=== PATIENT | male | born 1960 | race Caucasian/White ===

== ENCOUNTER → 2020-03-29 13:06 | Outpatient (BNVA) | payer MEDICAID, SELFPAY | PROVIDERS: PCP Internal Medicine; Referring Provider Internal Medicine; Visit Provider Nurse Practitioner Gerontology | DX: E11.65 Type 2 diabetes mellitus with hyperglycemia (principal); E11.42 Type 2 diabetes mellitus with diabetic polyneuropathy; E78.5 Hyperlipidemia, unspecified; E66.01 Morbid (severe) obesity due to excess calories; Z87.891 Personal history of nicotine dependence; Z79.84 Long term (current) use of oral hypoglycemic drugs; Z79.899 Other long term (current) drug therapy; Z79.82 Long term (current) use of aspirin | CPT/HCPCS: 99212 ==

== ENCOUNTER 2020-04-10 08:51 | Outpatient (REF) | payer MEDICAID, SELFPAY ==
[2020-04-10 09:44] LABS: Estimated Average Glucose 203 mg/dL; Hemoglobin A1c % 8.7 %
[2020-04-10 09:57] LABS: Alanine Aminotransferase 38 U/L (0-40); Alkaline Phosphatase 48 U/L (39-117); Anion Gap 11 (12-20); Aspartate Amino Transferase 26 U/L (5-37); Bilirubin Total 0.4 mg/dL (0.0-1.0); Blood Urea Nitrogen 23 mg/dL (9-16); Calcium 9.3 mg/dL (8.4-10.2); Carbon Dioxide 31 mmol/L (22-29); Chloride 100 mmol/L (96-108); Cholesterol 131 mg/dL; Estimated Glomerular Filt Rate > 60; Glucose Fasting 175 mg/dL (60-99); HDL Cholesterol 30 mg/dL; LDL Cholesterol Calculated 52 mg/dl; Potassium 4.3 mmol/l (3.3-5.1); Sodium 138 mmol/L (135-145); Total Protein 7.4 g/dL (6.5-8.0); Triglycerides 247 mg/dL
[2020-04-10 11:24] LABS: Creatinine Urine 101.47 mg/dL; Microalbum/Creatinine Ratio Ur 31.5 ug/mg cr
[2020-04-11 20:07] LABS: LDL Cholesterol Direct 70 mg/dL (<100)
== END 2020-04-10 08:52 | disposition home or self-care (01) ==
LOC: HO.LAB 08:51
PROVIDERS: PCP Internal Medicine; Visit Provider Nurse Practitioner Gerontology
DX: E11.65 Type 2 diabetes mellitus with hyperglycemia (principal); Z79.4 Long term (current) use of insulin
CPT/HCPCS: 80053; 80061; 82043; 83036; 83721

== ENCOUNTER → 2020-04-13 13:21 | Outpatient (BNVA) | payer MEDICAID, SELFPAY | PROVIDERS: PCP Internal Medicine; Referring Provider Internal Medicine; Visit Provider Nurse Practitioner Gerontology | DX: Z76.89 Persons encountering health services in other specified circumstances (principal) ==

== ENCOUNTER → 2020-06-06 12:36 | Outpatient (BNVA) | payer MEDICAID, SELFPAY | PROVIDERS: PCP Internal Medicine; Visit Provider Dietitian, Registered | DX: Z76.89 Persons encountering health services in other specified circumstances (principal) ==

== ENCOUNTER 2020-06-11 13:00 | Outpatient (RCR) | payer MEDICAID, SELFPAY | END 2020-08-10 15:24 | disposition other institution (70) | LOC: HO.PT 13:00 | PROVIDERS: PCP Internal Medicine; Visit Provider Internal Medicine | DX: M54.2 Cervicalgia (principal) | CPT/HCPCS: 97014; 97110; 97112; 97140; 97162 ==

== ENCOUNTER 2020-06-17 15:18 | Emergency (ER) | payer MEDICAID, SELFPAY ==
--- NOTE | 2020-06-17 17:22 | ED.GENADULT ---
HPI - General Adult General Stated complaint: ?Uti Time Seen by Provider: 06/17/20 17:15 History of Present Illness HPI narrative: 59 y.o. M with PMH of poorly controlled DM, HLD, HTN, obesity presenting to the ED with concern for urinary frequency. Pt. states when his bladder becomes full he gets abdominal pain and when he voides he gets relief. He is urinating more frequently at least 10x a day. He states he is not voiding completely, now will void partially go make coffee in the morning and have to urinate again. He denies hx of prostate problems. He has no dysuria. He has no penile discharge. He denies sexual activity or concern for STD. He has not seen a urologist. His blood sugars are poorly controlled at times in the 200s. Related Data Home Medications Medication Instructions Recorded Confirmed amlodipine 5 mg tablet 5 mg PO DAILY 03/29/20 04/13/20 aspirin 81 mg tablet,delayed 81 mg PO DAILY 03/29/20 04/13/20 release gabapentin 800 mg tablet 800 mg PO BID 03/29/20 04/13/20 hydrochlorothiazide 25 mg tablet 25 mg PO DAILY 03/29/20 04/13/20 lisinopril 40 mg tablet 40 mg PO DAILY 03/29/20 04/13/20 melatonin 5 mg capsule mg PO PRN 03/29/20 04/13/20 metformin 1,000 mg tablet 1,000 mg PO BID 03/29/20 04/13/20 metoprolol succinate 200 mg 200 mg PO DAILY 03/29/20 04/13/20 tablet,extended release 24 hr naproxen 500 mg tablet 500 mg PO DAILY PRN tab 03/29/20 04/13/20 pantoprazole 20 mg tablet,delayed 20 mg PO DAILY 03/29/20 04/13/20 release simvastatin 20 mg tablet 20 mg PO DAILY 03/29/20 04/13/20 Previous Rx's Medication Instructions Recorded dulaglutide 1.5 mg/0.5 mL 1.5 mg SUBCUT QWEEK #2 ml 03/29/20 subcutaneous pen injector pioglitazone 15 mg tablet 15 mg PO DAILY #30 tab 04/18/20 cephalexin [Keflex] 500 mg PO Q12H 7 Days #14 cap 06/17/20 Allergies Allergy/AdvReac Type Severity Reaction Status Date / Time No Known Allergies Allergy Verified 03/29/20 13:18 [No Known Allergies*] Review of Systems Constitutional: Constitutional: Denies fever(s) Eyes: Eyes: Reports no additional eye complaints ENT: Denies dizziness Cardiovascular: Cardiovascular: Denies chest pain and Denies dyspnea Respiratory: Respiratory: Denies dyspnea Gastrointestinal: Gastrointestinal: Denies vomiting Genitourinary: Genitourinary: Denies genital pain, Denies dysuria, Denies penile discharge, Reports urinary frequency and Reports urinary hesitancy Musculoskeletal: Musculoskeletal: Reports no additional musculoskeletal complaints Integumentary/Breasts: Skin/Breast: Denies rash Neurologic: Denies dizziness Hematologic/Lymphatic: Hematologic/Lymphatic: Denies easy bleeding PMFSH Past Medical History Medical History Arthritis of both knees Balanitis Hyperlipidemia LDL goal <100 Obesity due to excess calories Type 2 diabetes mellitus with hyperglycemia, with long-term current use of insulin Type 2 diabetes mellitus with polyneuropathy Surgical History Hx of appendectomy Hx of tonsillectomy Family History Family History (Updated 03/28/20 @ 16:40 by Maty Esquivel) Father No problems noted. Mother Diabetes Maternal Grandfather CVD (cardiovascular disease) Maternal Uncle Diabetes Maternal Aunt Diabetes Social History Social History Household Members: None Smoking Status: Former smoker Physical Exam Vital Signs: Vital Signs: Last Vital Signs Temp 98.7 F 06/17/20 17:29 Pulse 77 06/17/20 17:29 Resp 16 06/17/20 17:29 BP 155/77 H 06/17/20 17:29 Pulse Ox 97 06/17/20 17:29 Body Mass Index 37.3 Const: Other: sitting upright at the edge of the stretcher General: cooperative Orientation/consciousness: patient oriented x3 HENMT: Head: Yes atraumatic Eyes: Pupils: Equal, round and reactive pupils present Neck: Neck: Yes full ROM Resp: Effort & Inspection: normal respiratory effort and able to speak in complete sentences Cardio: Rate: regular rate GI: Inspection: Yes obesity Palpation (GI): nontender : General: Yes deferred Back/Spine/Pelvis: Other: normal ROM Skin: Other: no lesions Neuro: Other: ambulatory with steady gait General: patient oriented x3 Cranial nerves: Yes Equal, round and reactive pupils present Extrem: General: Yes normal to inspection Psych: Appearance: grossly normal Course Course Course Narrative: glucose POC 190. Awaiting on UA. Reevaluation(s) Reevaluation #1: UA shows + nitrates, and +2 leukocytes, will tx for UTI. Will give first dose in the ED. Give urology follow up. Return precautions provided. Medical Decision Making [facility] Narrative Medical decision making narrative: 59 y.o. M presenting to the ED with concern for urinary frequency, incomplete voiding, suprapubic abdominal pain when feeling bladder fullness VS stable, not toxic appearing, hemodynamically stable Will plan for UA to r/o infection. Will check glucose POC as pt. is a poorly controlled DM. He denies rash will defer exam. Pt. does not offer testicular pain to suggest torsion. He is not sexually active, less likely STD in nature. Could have BPH that could be contributing to his symptoms. Abdomen is not peritonitic, lower suspicion for intraabdominal process. Low concern for pyelonephritis as he does not have signs of systemic illness. Doubt renal stone as pt. does not have colicky flank pain, no hx of renal stones, no hematuria reported. Lab Data Labs: Lab Results 06/17/20 06/17/20 Range/Units 17:38 17:52 POC Glucose 190 H (60-115) mg/dL Urine Color YELLOW Urine Appearance CLOUDY Urine pH 5.5 (5.0-8.0) Ur Specific Moore 1.025 (1.005-1.025) Urine Protein TRACE (NEG-TRACE) MG/DL Urine Glucose (UA) 100 H (NEG) MG/DL Urine Ketones NEG (NEG) MG/DL Urine Blood 3+ H (NEG) Urine Nitrite POS H (NEG) Ur Leukocyte Esterase 2+ H (NEG) Discharge Plan Discharge Clinical Impression: Urinary tract infection, Urinary frequency, Diabetes mellitus Patient Disposition: Home, Self-Care Instructions: Urinary Tract Infection in Men (ED) Additional Instructions: You were seen in the emergency department for concerns of urinary symptoms. Your glucose was elevated 190. Your urine shows you have an infection, we are going to treat you with antibiotics. Please return to the emergency department if his symptoms persist, pain continues despite completing the course of antibiotics, fevers, vomiting, back pain, worsening abdominal pain, unable to eat or drink, or any other concerning symptoms. Continue your home medications as prescribed in addition to the antibiotics that we are giving you. Prescriptions: New cephalexin [Keflex] 500 mg capsule 500 mg PO Q12H 7 Days Qty: 14 RF: 0 No Action pioglitazone 15 mg tablet 15 mg PO DAILY Qty: 30 RF: 3 metformin 1,000 mg tablet 1,000 mg PO BID RF: 0 gabapentin 800 mg tablet 800 mg PO BID RF: 0 simvastatin 20 mg tablet 20 mg PO DAILY RF: 0 metoprolol succinate 200 mg tablet extended release 24 hr 200 mg PO DAILY RF: 0 hydrochlorothiazide 25 mg tablet 25 mg PO DAILY RF: 0 lisinopril 40 mg tablet 40 mg PO DAILY RF: 0 aspirin [Adult Aspirin Regimen] 81 mg tablet,delayed release (DR/EC) 81 mg PO DAILY RF: 0 amlodipine 5 mg tablet 5 mg PO DAILY RF: 0 naproxen 500 mg tablet 500 mg PO DAILY PRNRF: 0 pantoprazole 20 mg tablet,delayed release (DR/EC) 20 mg PO DAILY RF: 0 melatonin 5 mg capsule PO PRNRF: 0 Trulicity 1.5 mg/0.5 mL pen injector 1.5 mg subcut QWEEK Qty: 2 RF: 3 Referrals: Moy Jarrell MD [Physician] - 1 week
[2020-06-17 17:29] VITALS: BP 155/77; PULSE 77; RESP 16; TEMP 37.1; O2SAT 97; BMI 37.3
[2020-06-17 17:49] LABS: Glucose Urine UA 100 MG/DL (NEG); Leukocyte Esterase Urine 2+ (NEG); Nitrite Urine POS (NEG); PH 5.5 (5.0-8.0); Specific Gravity - Urine 1.025 (1.005-1.025); Urine Blood 3+ (NEG); Urine Ketones NEG (NEG); Urine Protein TRACE MG/DL (NEG-TRACE)
[2020-06-17 17:53] LABS: Appearance Urine CLOUDY; Color Urine YELLOW
[2020-06-17 17:55] LABS: Glucose, Whole Blood 190 mg/dL (60-115)
[2020-06-17 18:05] LABS: Bacteria Urine 4+ /LPF; RBC Urine 50-75 /HPF (0); WBC Urine TNTC /HPF (0-4)
[2020-06-17] MEDS: cephALEXin 500 MG CAPSULE PO (18:09)
[2020-06-17 18:55] VITALS: BP 155/77; PULSE 77; RESP 16; TEMP 37.1; O2SAT 97
== END 2020-06-17 18:10 | disposition home or self-care (01) ==
LOC: HO.ED 18:08
PROVIDERS: Physician Assistant Medical; Emergency Provider Emergency Medicine
DX: N39.0 Urinary tract infection, site not specified (principal); R35.0 Frequency of micturition; R10.9 Unspecified abdominal pain; E11.9 Type 2 diabetes mellitus without complications; Z79.899 Other long term (current) drug therapy
CPT/HCPCS: 81001; 82947; 87086; 87147; 87186; 99283; 99284

== ENCOUNTER → 2020-07-05 13:01 | Outpatient (BNVA) | payer MEDICAID, SELFPAY | PROVIDERS: Visit Provider Dietitian, Registered ==

== ENCOUNTER 2020-07-16 11:49 | Emergency (ER) | payer MEDICAID, SELFPAY ==
--- NOTE | ~2020-07-16 | US_ITS ---
EXAMINATION: US VENOUS ULTRASOUND WITH DOPPLER LOWER EXTREMITY, RIGHT CLINICAL INFORMATION: Pain COMPARISON: None TECHNIQUE: Ultrasound of the deep veins is performed from the hip to the calf with compression sonography and color and pulse Doppler assessment. Spectral analysis with color-flow imaging is performed. FINDINGS: There is normal venous compression and respiratory variation and augmented flow. The visualized common femoral vein, superficial femoral vein, profunda femoral vein, popliteal vein, and the trifurcation region shows no evidence of deep venous thrombosis. There is no significant popliteal fossa cyst. US/US venous duplex LE RT IMPRESSION: No DVT demonstrated in the right lower extremity.
--- NOTE | ~2020-07-16 | XR_ITS ---
EXAMINATION: XR HIP, RIGHT CLINICAL INFORMATION: Pain COMPARISON: None TECHNIQUE: Two views of the right hip and one view of the pelvis. FINDINGS: Bone alignment is normal. No fracture or dislocation is seen. There is arthritis of the right hip joint with joint space narrowing and osteophyte formation. There is proliferative bone reaction at the iliac crests and inferior pubic rami. Bones of the pelvis are otherwise unremarkable. There are degenerative changes of the lower lumbar spine. XR/XR hip RT min 2V IMPRESSION: Degenerative changes.
[2020-07-16 11:55] VITALS: BP 167/75; PULSE 74; RESP 18; TEMP 36.6; O2SAT 98; BMI 37.3
--- NOTE | 2020-07-16 12:20 | ED.EXTPRO ---
HPI - Extremity Problem General Chief complaint: Extremity Problem Stated complaint: R LEG PAIN Time Seen by Provider: 07/16/20 12:18 Source: patient Mode of arrival: ambulatory Limitations: no limitations History of Present Illness HPI Narrative: 59 yo male with DM and polyneuropathy , HTN, and HPL here with R LE pain and some tingling in R calf area - no trauma, positive pain with movement, bounding distal pulses started at rest - has been going for 5 days Complaint: extremity pain Onset (ago): day(s) (5) Pain Consistency: constant Location: right and lower extremity Quality: aching Radiation: distal Relieving factors: nothing Exacerbating factors: weight bearing and walking Associated symptoms: denies other symptoms Related Data Home Medications Medication Instructions Recorded Confirmed amlodipine 5 mg tablet 5 mg PO DAILY 03/29/20 04/13/20 aspirin 81 mg tablet,delayed 81 mg PO DAILY 03/29/20 04/13/20 release gabapentin 800 mg tablet 800 mg PO BID 03/29/20 04/13/20 hydrochlorothiazide 25 mg tablet 25 mg PO DAILY 03/29/20 04/13/20 lisinopril 40 mg tablet 40 mg PO DAILY 03/29/20 04/13/20 melatonin 5 mg capsule mg PO PRN 03/29/20 04/13/20 metformin 1,000 mg tablet 1,000 mg PO BID 03/29/20 04/13/20 metoprolol succinate 200 mg 200 mg PO DAILY 03/29/20 04/13/20 tablet,extended release 24 hr naproxen 500 mg tablet 500 mg PO DAILY PRN tab 03/29/20 04/13/20 pantoprazole 20 mg tablet,delayed 20 mg PO DAILY 03/29/20 04/13/20 release simvastatin 20 mg tablet 20 mg PO DAILY 03/29/20 04/13/20 Previous Rx's Medication Instructions Recorded pioglitazone 15 mg tablet 15 mg PO DAILY #30 tab 04/18/20 cephalexin [Keflex] 500 mg PO Q12H 7 Days #14 cap 06/17/20 dulaglutide 1.5 mg/0.5 mL 1.5 mg SUBCUT QWEEK #2 ml 07/08/20 subcutaneous pen injector cyclobenzaprine 10 mg PO TID PRN #14 tab 07/16/20 hydrocodone-acetaminophen 1 tab PO Q6H PRN #12 tab 07/16/20 Allergies Allergy/AdvReac Type Severity Reaction Status Date / Time No Known Allergies Allergy Verified 03/29/20 13:18 [No Known Allergies*] Review of Systems Review of Systems: Constitutional : No Fever, No Chills ENT/Mouth : No Ear Pain, No Hoarseness, No sore throat Eyes: No Eye Pain, No Swelling, No Redness, No Foreign Body Cardiovascular : No Chest Pain, No SOB Respiratory : No Cough, No Dyspnea Gastrointestinal : No Nausea, No Vomiting, No Diarrhea, No abdominal Pain Genitourinary : No Dysuria, No Hematuria Musculoskeletal : positive joint pain, No Myalgias, No Joint Swelling Skin : No Skin lacerations, No rash Neuro : No Weakness, No Numbness, pos tingling, No Loss of Consciousness, No Dizziness, No Headache Psych : No Anxiety/Panic, No Depression All other systems reviewed and are negative [facility] Past Medical History Attestation statement: The following information was validated with the patient. Medical History Arthritis of both knees Balanitis Hyperlipidemia LDL goal <100 Obesity due to excess calories Type 2 diabetes mellitus with hyperglycemia, with long-term current use of insulin Type 2 diabetes mellitus with polyneuropathy Surgical History Hx of appendectomy Hx of tonsillectomy Family History Family History (Updated 03/28/20 @ 16:40 by Maty Esquivel [facility]) Father No problems noted. Mother Diabetes Maternal Grandfather CVD (cardiovascular disease) Maternal Uncle Diabetes Maternal Aunt Diabetes Social History Social History Household Members: None Smoking Status: Former smoker Smoked in Last 30 Days: No Use of substances other than those prescribed or required for medical reasons: No Advance Directives: No Advance Directives Information Provided: No Physical Exam Vital Signs: Vital Signs: Last Vital Signs Temp 97.9 F 07/16/20 11:55 Pulse 74 07/16/20 11:55 Resp 18 07/16/20 11:55 BP 167/75 H 07/16/20 11:55 Pulse Ox 98 07/16/20 11:55 Body Mass Index 37.3 Appearance: Alert. Oriented X3. No acute distress. Eyes: Pupils equal, round and reactive to light. ENT: Pharynx normal. Neck: Normal inspection. Neck supple. CVS: Normal heart rate and rhythm. Pulses normal. Respiratory: No respiratory distress. Breath sounds normal. Abdomen: Soft and nontender. Skin: Skin warm and dry. Normal skin color. Normal skin turgor. Extremities: No lower extremity edema. No calf ttp bounding distal pulses, can feel R inner lower calf but states tingling in areas, no signs of infection, R hip pain to palpation and range of motion R fem pulse intact, no erythema or swelling over R hip, no hernia noted Neuro: Oriented X 3. No motor deficit. No sensory deficit. Course Course Course Narrative: no acute findings, stable for DC MDM - Extremity (Nontraumatic) MDM Narrative Medical decision making narrative: 59 yo male with atraumatic R hip pain radiates down his leg - bounding pulses no signs of infection no abdominal pain, has hx of polyneuropathy and notes some tingling - will obtain xray and DVT study, PO pain medications, dispo per results and findings. Discharge Plan Discharge Clinical Impression: Arthralgia Patient Disposition: Home, Self-Care Instructions: Arthralgia (ED) Additional Instructions: return to ED for any worsening symptoms or concerns Prescriptions: New cyclobenzaprine 10 mg tablet 10 mg PO TID PRN (Reason: muscle spasm) Qty: 14 RF: 0 hydrocodone-acetaminophen 5-325 mg tablet 1 tab PO Q6H PRN (Reason: pain) Qty: 12 RF: 0 No Action pioglitazone 15 mg tablet 15 mg PO DAILY Qty: 30 RF: 3 dulaglutide [Trulicity] 1.5 mg/0.5 mL pen injector 1.5 mg subcut QWEEK Qty: 2 RF: 3 cephalexin [Keflex] 500 mg capsule 500 mg PO Q12H 7 Days Qty: 14 RF: 0 metformin 1,000 mg tablet 1,000 mg PO BID RF: 0 gabapentin 800 mg tablet 800 mg PO BID RF: 0 simvastatin 20 mg tablet 20 mg PO DAILY RF: 0 metoprolol succinate 200 mg tablet extended release 24 hr 200 mg PO DAILY RF: 0 hydrochlorothiazide 25 mg tablet 25 mg PO DAILY RF: 0 lisinopril 40 mg tablet 40 mg PO DAILY RF: 0 aspirin [Adult Aspirin Regimen] 81 mg tablet,delayed release (DR/EC) 81 mg PO DAILY RF: 0 amlodipine 5 mg tablet 5 mg PO DAILY RF: 0 naproxen 500 mg tablet 500 mg PO DAILY PRNRF: 0 pantoprazole 20 mg tablet,delayed release (DR/EC) 20 mg PO DAILY RF: 0 melatonin 5 mg capsule PO PRNRF: 0 Referrals: [facility] [Primary Care Provider] - 2 days (if not better) Stand Alone Forms: Work/School Release
[2020-07-16] MEDS: Cyclobenzaprine HCl 10 MG TABLET PO (13:43)
[2020-07-16] MEDS: oxyCODONE HCl Immed Release 5 MG TABLET 10 MG PO (13:43)
== END 2020-07-16 13:51 | disposition home or self-care (01) ==
PROVIDERS: Emergency Provider Emergency Medicine
DX: M79.661 Pain in right lower leg (principal); M25.551 Pain in right hip; E11.9 Type 2 diabetes mellitus without complications; I10 Essential (primary) hypertension; M17.0 Bilateral primary osteoarthritis of knee; E66.09 Other obesity due to excess calories; Z79.4 Long term (current) use of insulin
CPT/HCPCS: 73502; 93971; 99283; 99284

== ENCOUNTER → 2020-08-02 10:59 | Outpatient (BNVA) | payer MEDICAID, SELFPAY | PROVIDERS: Visit Provider Orthopaedic Surgery | DX: E11.65 Type 2 diabetes mellitus with hyperglycemia (principal); Z79.4 Long term (current) use of insulin; M54.16 Radiculopathy, lumbar region | CPT/HCPCS: 99212 ==

== ENCOUNTER → 2020-08-20 13:51 | Outpatient (BNVA) | payer MEDICAID, SELFPAY | PROVIDERS: Visit Provider Nurse Practitioner Family | DX: M54.16 Radiculopathy, lumbar region (principal) | CPT/HCPCS: 99202 ==

== ENCOUNTER 2020-08-24 15:06 | Outpatient (REF) | payer MEDICAID, SELFPAY ==
--- NOTE | ~2020-08-24 | MR_ITS ---
EXAMINATION: MR LUMBAR SPINE WITHOUT CONTRAST CLINICAL INFORMATION: Low back pain and radiculopathy. COMPARISON: None TECHNIQUE: MRI of the lumbar spine was obtained using routine sequences without contrast. FINDINGS: VERTEBRAL BODIES AND PARASPINAL STRUCTURES: The marrow signal is within normal limits. No compression fractures or subluxations are seen. Reduced intradiscal signal and mild disc space narrowing evident throughout the lumbar spine. The paraspinal soft tissues are normal. Small right renal cyst incidentally noted. There are moderate degenerative changes of the sacroiliac joints bilaterally. CONUS MEDULLARIS AND CAUDA EQUINA: Normal, terminating at the level of L1. No lower cord signal abnormality is seen. The cauda equina nerve roots are normal. SPINAL LEVELS: L1-L2: Mild posterior disc bulge with mild facet arthropathy and slight narrowing of the central canal. Mild bilateral foraminal narrowing as well. L2-L3: Mild retrosubluxation and diffuse disc bulge with a broad-based right paracentral disc protrusion and a prominent right lateral recess extruded component of disc migrating to the lower L3 vertebral body level compressing the right L3 nerve root. Hypertrophic facet arthropathy and moderate central canal stenosis with thecal sac distortion. Moderate bilateral foraminal narrowing. L3-L4: Diffuse disc bulge and broad-based central disc protrusion mild to moderately distorts the thecal sac with hypertrophic facet arthropathy and [id number] central canal stenosis. Central disc protrusion impresses upon both L4 nerve roots in the subarticular zones. Underlying disc bulge and osseous spurring with significant bilateral foraminal encroachment. L4-L5: Severe facet arthrosis with facet joint effusions. No central canal stenosis. Mild diffuse disc bulge present with moderate to severe bilateral foraminal narrowing. L5-S1: Broad-based central to left subarticular zone disc protrusion mildly impressing upon the S1 nerve roots. No central canal stenosis. Hypertrophic facet arthropathy. Moderate to severe left foraminal narrowing with mild distortion of the exiting left L5 nerve root. MR/MR lumbar spine wo con IMPRESSION: Broad-based right paracentral disc protrusion at the L2-L3 level with an extruded component of disc migrating inferiorly into the right lateral recess compressing the right L3 nerve root. Moderate central canal stenosis and thecal sac distortion with moderate foraminal narrowing. Broad-based central disc protrusion at L3-L4 distorting the ventral thecal sac with [id number] central canal stenosis. Disc protrusion impresses upon both L4 nerve roots as well. Significant bilateral foraminal narrowing. Moderate to severe foraminal narrowing at the L4-L5 level due to bulging disc, endplate spurring, and significant facet arthropathy. Broad-based, shallow central to left subarticular zone disc protrusion at L5-S1 mildly impressing upon both S1 nerve roots. Moderate to severe left foraminal narrowing with distortion of the left L5 nerve root.
== END 2020-08-24 15:07 | disposition home or self-care (01) ==
LOC: HO.MRI 15:06
PROVIDERS: Visit Provider Anesthesiology
DX: M54.16 Radiculopathy, lumbar region (principal)
CPT/HCPCS: 72148

== ENCOUNTER 2020-09-06 08:40 | Outpatient (REF) | payer MEDICAID, SELFPAY ==
--- NOTE | 2020-09-06 08:45 | EMG_ITS ---
Right tibial and peroneal motor studies were performed. Right superficial peroneal and sural sensory studies were performed. Tibial H-reflex was obtained and paraspinal muscles were tested with a needle. IMPRESSION: Cbykuaqv-[id number]-rutkap chronic axonal sensory motor peripheral neuropathy. MD ROBERTH Keith/LORETO / [id number]
== END 2020-09-06 08:41 | disposition home or self-care (01) ==
LOC: HO.NEURO 08:40
PROVIDERS: Visit Provider Internal Medicine
DX: R20.0 Anesthesia of skin (principal)
CPT/HCPCS: 95886; 95909

== ENCOUNTER → 2020-09-07 14:07 | Outpatient (BNVA) | payer MEDICAID, SELFPAY | PROVIDERS: PCP Internal Medicine; Visit Provider Nurse Practitioner Family | DX: M54.16 Radiculopathy, lumbar region (principal); M48.061 Spinal stenosis, lumbar region without neurogenic claudication | CPT/HCPCS: 99212 ==

== ENCOUNTER 2020-10-11 14:00 | Outpatient (RCR) | payer MEDICAID, SELFPAY ==
--- NOTE | 2020-09-14 11:23 | MHC.PT.EP ---
[facility] [place] Office [place] Office [place] Office [address] Froylan Jarvis [address] [phone] F: [phone] F: [phone] F: [phone] F: [phone] Physical Therapy Plan of Care Date of Evaluation: 09/13/20 Date of Surgery: N/A Diagnosis: radiculopathy, lumbar region Assessment: pt presents w/ MRI imaging (+) for multi-level radiculopathy. pt also presents w/ significant ROM and muscular limitations preventing maximum functional mobility. pt presents to physical therapy with pain, decreased range of motion, decreased strength, impaired functional mobility, impaired postural awareness, and gait deviations. pt is a good candidate for skilled PT due to age, potential remediation of impairments, typical disease/condition progression and prognosis, comorbidities, and motivation. pt would benefit from tailored strengthening and stretching exercise program, functional training, gait training, postural re-training, neuromuscular re-education, modalities as needed for pain, equipment safety demonstration. Frequency and Duration: The patient will be seen 2x/wk for 5 wks Short Term Goals: pt will be I w/ HEP to promote self-management of condition. pt will demo proper sitting posture w/ lumbar roll to promote neutral posture as assessed via teachback and demo. Hourly Associate Goals: pt will achieve full lumbar flexion to promote ease in lower body dressing. pt will report <1/10 low back pain w/ standing for >15 min to improve tolerance for ADLs. Treatment Plan: Modalities to reduce pain, spasms and effusion. Manual therapy to restore motion and function. Therapeutic exercise to improve strength and flexibility. Neuromuscular re-education for posture and balance. Therapeutic activities to return to functional activities of daily living. Electronically signed by: Sherry Neal PT, DPT Please sign and return to therapist. Thank you for your referral.
--- NOTE | 2020-10-23 18:07 | MHC.PT.DC ---
[facility] [place] Office [place] Office [place] Office [address] Froylan Jarvis [address] [phone] F: [phone] F: [phone] F: [phone] F: [phone] Physical Therapy Discharge Report Diagnosis: radiculopathy, lumbar region Date of Surgery: N/A Date of Evaluation: 09/13/20 Date of Discharge: 10/23/20 Treatments to Date: 6 Cancellations to Date: 2 No Shows to Date: 3 Discharge Status: Visit Non-compliance Discharge Summary: The patient has no showed a total of three appointments. Per [facility] policy the patient is to be discharged from this physical therapy plan of care due to visit non-compliance. He has a home exercise program including core and pelvic stability exercises to promote neutral spine. Electronically signed by: Sherry Neal PT, DPT Please sign and return to therapist. Thank you for your referral.
== END 2020-10-23 18:08 | disposition other institution (70) ==
LOC: HO.PT 14:00
PROVIDERS: PCP Internal Medicine; Visit Provider Anesthesiology
DX: M54.16 Radiculopathy, lumbar region (principal)
CPT/HCPCS: 97110; 97112; 97162

== ENCOUNTER 2020-10-16 06:54 | Outpatient (REF) | payer MEDICAID, SELFPAY | END 2020-10-16 06:55 | disposition home or self-care (01) | LOC: HO.RADIR 06:54 | PROVIDERS: Visit Provider Anesthesiology | DX: Z13.89 Encounter for screening for other disorder (principal) ==

== ENCOUNTER → 2020-11-08 13:05 | Outpatient (BNVA) | payer MEDICAID, SELFPAY | PROVIDERS: PCP Internal Medicine; Visit Provider Nurse Practitioner Gerontology | DX: E11.65 Type 2 diabetes mellitus with hyperglycemia (principal); E11.42 Type 2 diabetes mellitus with diabetic polyneuropathy; E78.5 Hyperlipidemia, unspecified; E66.09 Other obesity due to excess calories; I10 Essential (primary) hypertension; Z79.4 Long term (current) use of insulin; Z68.34 Body mass index [BMI] 34.0-34.9, adult | CPT/HCPCS: 82947 ==

== ENCOUNTER → 2020-12-27 11:00 | Outpatient (BNVA) | payer MEDICAID, SELFPAY | PROVIDERS: PCP Internal Medicine; Visit Provider Nurse Practitioner Gerontology | DX: E11.42 Type 2 diabetes mellitus with diabetic polyneuropathy (principal); E78.5 Hyperlipidemia, unspecified; E66.09 Other obesity due to excess calories; I10 Essential (primary) hypertension; Z68.34 Body mass index [BMI] 34.0-34.9, adult | CPT/HCPCS: 82947; 99212 ==

== ENCOUNTER 2021-01-20 23:02 | Emergency (ER) | payer MEDICAID, SELFPAY ==
[2021-01-21 00:05] VITALS: BP 146/78; PULSE 67; RESP 16; TEMP 36.6; O2SAT 99; BMI 35.9
[2021-01-21 01:45] LABS: Basophils Percent Auto 0.5 % (0-2); Eosinophils Absolute Auto 0.2 X10*3/uL (0.0-0.4); Eosinophils Percent Auto 2.9 % (0-4); Hematocrit 42.6 % (42-52); Hemoglobin 14.8 g/dl (14.0-18.0); Imm Gran Abs Auto 0.03 X10*3/uL (0.00-0.03); Imm Gran Pct Auto 0.4 % (0.0-0.4); Lymphocytes Absolute Auto 2.4 X10*3/uL (1.2-4.9); Lymphocytes Percent Auto 30.8 % (20-40); MANUAL DIFF FLAG NO; Mean Corpuscular HGB Conc 34.7 g/dl (31.0-36.0); Mean Corpuscular Hemoglobin 30.8 pg (27.0-33.0); Mean Corpuscular Volume 88.6 fL (80-98); Mean Platelet Volume 10.6 fL (9.4-12.4); Monocytes Absolute Auto 0.7 X10*3/uL (0.1-1.2); Monocytes Percent Auto 9.5 % (2-11); Neutrophils Absolute Auto 4.3 X10*3/uL (2.0-8.3); Neutrophils Percent Auto 55.9 % (45-73); Platelet Count 176 X10*3/uL (160-400); Red Blood Count 4.81 X10*6/uL (4.60-5.80); Red Cell Distribution Width 12.5 % (11.0-16.0); White Blood Count 7.7 X10*3/uL (4.8-10.8)
[2021-01-21 02:18] LABS: Alanine Aminotransferase 48 U/L (0-40); Albumin Level 4.1 g/dL (3.5-5.0); Alkaline Phosphatase 50 U/L (39-117); Anion Gap 13 (12-20); Aspartate Amino Transferase 44 U/L (5-37); Bilirubin Total 0.4 mg/dL (0.0-1.0); Blood Urea Nitrogen 25 mg/dL (9-16); Calcium 9.7 mg/dL (8.4-10.2); Carbon Dioxide 27 mmol/L (22-29); Chloride 102 mmol/L (96-108); Creatinine Clr Calc Pharmacy 67.5; Estimated Glomerular Filt Rate 50; Glucose Random 126 mg/dL (60-115); Potassium 4.2 mmol/L (3.3-5.1); Sodium 138 mmol/L (135-145); Total Protein 7.8 g/dL (6.5-8.0)
--- NOTE | 2021-01-21 02:42 | ED.GENADULT ---
HPI - General Adult General Chief complaint: Nausea/Vomiting/Diarrhea Stated complaint: diarrhea Time Seen by Provider: 01/21/21 02:33 Source: patient Mode of arrival: ambulatory Limitations: no limitations History of Present Illness HPI narrative: Patient comes to the emergency room complaining of diarrhea for 3 days. Patient states that hours before he had the 1st episode of diarrhea, he was preparing meatballs. Patient states that the meat smelled weird but he decided to take a chance and cook them anyways. Few hours after eating the meatballs, patient started having diarrhea. Patient denies GI bleed, no dark stool, no vomiting, no fever or chills. Patient states that for last 2 days he has been going to the bathroom with diarrhea up to 10 times per day. Patient has tried multiple doses loperamide without relief Related Data Home Medications Medication Instructions Recorded Confirmed amlodipine 5 mg tablet 5 mg PO DAILY 03/29/20 12/27/20 aspirin 81 mg tablet,delayed 81 mg PO DAILY 03/29/20 12/27/20 release (Adult Aspirin Regimen) gabapentin 800 mg tablet 800 mg PO BID 03/29/20 12/27/20 hydrochlorothiazide 25 mg tablet 25 mg PO DAILY 03/29/20 12/27/20 lisinopril 40 mg tablet 40 mg PO DAILY 03/29/20 12/27/20 melatonin 5 mg capsule mg PO PRN 03/29/20 12/27/20 metformin 1,000 mg tablet 1,000 mg PO BID 03/29/20 12/27/20 metoprolol succinate 200 mg 200 mg PO DAILY 03/29/20 12/27/20 tablet,extended release 24 hr simvastatin 20 mg tablet 20 mg PO DAILY 03/29/20 12/27/20 Previous Rx's Medication Instructions Recorded dulaglutide 4.5 mg/0.5 mL 4.5 mg SUBCUT QWEEK #2 ml 12/27/20 subcutaneous pen injector (Trulicity) empagliflozin 10 mg tablet 10 mg PO QAM #30 tab 12/27/20 (Jardiance) diphenoxylate-atropine 2.5 1 tab PO DAILY PRN #4 tab 01/21/21 mg-0.025 mg tablet (Lomotil) Allergies Allergy/AdvReac Type Severity Reaction Status Date / Time No Known Allergies Allergy Verified 01/21/21 00:05 [No Known Allergies*] Review of Systems Review of Systems: Constitutional : No Weight loss, No Fever, No Chills, No Night Sweats, No Fatigue, No Malaise ENT/Mouth : No Hearing loss, No Ear Pain, No Nasal Congestion, No Sinus Pain, No Hoarseness, No sore throat, No Rhinorrhea, No Swallowing Difficulty Eyes: No Eye Pain, No Swelling, No Redness, No Foreign Body, No Discharge, No Vision Changes Cardiovascular : No Chest Pain, No SOB, No Dyspnea on Exertion, No Orthopnea, No Edema, No Palpitations Respiratory : No Cough, No Sputum, No Wheezing, No Smoke Exposure, No Dyspnea Gastrointestinal : No Nausea, No Vomiting, complaining of Diarrhea, No Constipation, complaining of abdominal cramping, No Hematochezia, No Melena Genitourinary : no irregular bleeding, No Dysuria, No Urinary Frequency, No Hematuria, No Urinary Incontinence, No Urgency, No Flank Pain, No Urinary Flow Changes, No Hesitancy Musculoskeletal : No joint pain, No Myalgias, No Joint Swelling Skin : No Skin Lesions, No rash Neuro : No Weakness, No Numbness, No Paresthesias, No Loss of Consciousness, No Dizziness, No Headache Psych : No Anxiety/Panic, No Depression, No SI/HI/AH/VH, No Social Issues, Heme/Lymph: No Bruising, No Bleeding,No Lymphadenopathy Endocrine : No Polyuria, No Polydipsia, No Temperature Intolerance PMFSH Past Medical History Medical History Arthritis of both knees Balanitis Essential hypertension Hyperlipidemia LDL goal <100 Obesity due to excess calories Right lumbar radiculopathy Type 2 diabetes mellitus with hyperglycemia, with long-term current use of insulin Type 2 diabetes mellitus with polyneuropathy Surgical History Hx of appendectomy Hx of tonsillectomy Family History Family History Father No problems noted. Mother Diabetes Maternal Grandfather CVD (cardiovascular disease) Maternal Uncle Diabetes Maternal Aunt Diabetes Social History Social History (Updated 11/08/20 @ 13:21 by Maty Esquivel Williams) Household Members: None Patient Tobacco Use Status: Current someday Tobacco user Advance Directives: No Physical Exam Vital Signs: Vital Signs: Last Vital Signs Temp 98 F 01/21/21 00:05 Pulse 67 01/21/21 00:05 Resp 16 01/21/21 00:05 BP 146/78 H 01/21/21 00:05 Pulse Ox 99 01/21/21 00:05 Body Mass Index 35.9 Const: Other: Appearance: Alert. Oriented X3. No acute distress. Eyes: Pupils equal, round and reactive to light. ENT: Pharynx normal. Neck: Normal inspection. Neck supple. No lymph nodes noted. No crepitus CVS: Normal heart rate and rhythm. Pulses normal. Normal S1 and S2 Respiratory: No respiratory distress. Breath sounds normal. No Wheezing. No rales Abdomen: Soft and nontender. No rigidity. No distention. good BS x4 Skin: Skin warm and dry. Normal skin color. Normal skin turgor. Extremities: No lower extremity edema. No Lacerations. No Rash Neuro: Oriented X 3. No motor deficit. No sensory deficit. Moving all extermities. No slurred speech. Course Course Course Narrative: Elevated at 1.43. Patient given 1 L normal saline IV fluids and Lomotil. Patient instructed to follow-up with his primary care physician. Medical Decision Making Lab Data Result diagrams: 01/21/21 01:41 01/21/21 01:41 Labs: Lab Results 01/21/21 01/21/21 Range/Units 01:41 01:41 WBC 7.7 (4.8-10.8) X10*3/uL RBC 4.81 (4.60-5.80) X10*6/uL Hgb 14.8 (14.0-18.0) g/dl Hct 42.6 (42-52) % MCV 88.6 (80-98) fL MCH 30.8 (27.0-33.0) pg MCHC 34.7 (31.0-36.0) g/dl RDW 12.5 (11.0-16.0) % Plt Count 176 (160-400) X10*3/uL MPV 10.6 (9.4-12.4) fL Immature Gran % (Auto) 0.4 (0.0-0.4) % Neut % (Auto) 55.9 (45-73) % Lymph % (Auto) 30.8 (20-40) % [place] % (Auto) 9.5 (2-11) % Eos % (Auto) 2.9 (0-4) % Baso % (Auto) 0.5 (0-2) % Lymph # (Auto) 2.4 (1.2-4.9) X10*3/uL [place] # (Auto) 0.7 (0.1-1.2) X10*3/uL Eos # (Auto) 0.2 (0.0-0.4) X10*3/uL Baso # (Auto) 0.0 (0.0-0.2) X10*3/uL Abs Immat Gran (auto) 0.03 (0.00-0.03) X10*3/uL Absolute Neuts (auto) 4.3 (2.0-8.3) X10*3/uL Absolute Nucleated RBC 0.000 (0.0-0.012) X10*3/uL Nucleated RBC % (auto) 0.0 (0.0-0.2) /100WBC Sodium 138 (135-145) mmol/L Potassium 4.2 (3.3-5.1) mmol/L Chloride 102 (96-108) mmol/L Carbon Dioxide 27 (22-29) mmol/L Anion Gap 13 (12-20) BUN 25 H (9-16) mg/dL Creatinine 1.43 H (0.5-1.4) mg/dL Estim Creat Clear Calc 67.5 Estimated GFR 50 Random Glucose 126 H (60-115) mg/dL Calcium 9.7 (8.4-10.2) mg/dL Total Bilirubin 0.4 (0.0-1.0) mg/dL AST 44 H D (5-37) U/L ALT 48 H (0-40) U/L Alkaline Phosphatase 50 (39-117) U/L Total Protein 7.8 (6.5-8.0) g/dL Albumin 4.1 (3.5-5.0) g/dL Discharge Plan Discharge Clinical Impression: Diarrhea Qualifiers: Diarrhea type: unspecified type Qualified Code(s): R19.7 - Diarrhea, unspecified Patient Disposition: Home, Self-Care Instructions: Acute Diarrhea (ED), Food Poisoning (ED) Additional Instructions: Please follow-up with your primary care physician tomorrow. If you have any worsening or new symptoms, please return to the emergency room or call 911 Prescriptions: New diphenoxylate-atropine [Lomotil] 2.5-0.025 mg tablet 1 tab PO DAILY PRN (Reason: diarrhea) Qty: 4 RF: 0 No Action Trulicity 4.5 mg/0.5 mL pen injector 4.5 mg subcut QWEEK Qty: 2 RF: 4 Jardiance 10 mg tablet 10 mg PO QAM Qty: 30 RF: 6 metformin 1,000 mg tablet 1,000 mg PO BID RF: 0 gabapentin 800 mg tablet 800 mg PO BID RF: 0 simvastatin 20 mg tablet 20 mg PO DAILY RF: 0 metoprolol succinate 200 mg tablet extended release 24 hr 200 mg PO DAILY RF: 0 hydrochlorothiazide 25 mg tablet 25 mg PO DAILY RF: 0 lisinopril 40 mg tablet 40 mg PO DAILY RF: 0 aspirin [Adult Aspirin Regimen] 81 mg tablet,delayed release (DR/EC) 81 mg PO DAILY RF: 0 amlodipine 5 mg tablet 5 mg PO DAILY RF: 0 melatonin 5 mg capsule PO PRNRF: 0
[2021-01-21] MEDS: Diphenoxylate/Atrop 2.5/0.025 TABLET 1 TAB PO (02:53)
[2021-01-21] MEDS: 0.9 % Sodium Chloride 1,000 ML 999 ML IVCONT (02:56)
[2021-01-21 03:18] VITALS: RESP 18; O2SAT 100
== END 2021-01-21 03:38 | disposition home or self-care (01) ==
PROVIDERS: Emergency Provider Emergency Medicine
DX: R11.2 Nausea with vomiting, unspecified (principal); R19.7 Diarrhea, unspecified; I10 Essential (primary) hypertension; E11.9 Type 2 diabetes mellitus without complications; F17.200 Nicotine dependence, unspecified, uncomplicated; Z79.899 Other long term (current) drug therapy; Z79.4 Long term (current) use of insulin; Z71.6 Tobacco abuse counseling
CPT/HCPCS: 36415; 80053; 85025; 96360; 99283; 99284

== ENCOUNTER → 2021-08-29 10:29 | Outpatient (BNVA) | payer MEDICAID, SELFPAY | PROVIDERS: Visit Provider Urology | DX: N48.1 Balanitis (principal) | CPT/HCPCS: 99202 ==

== ENCOUNTER → 2021-09-24 13:20 | Outpatient (BNVA) | payer MEDICAID, SELFPAY | PROVIDERS: PCP Internal Medicine; Visit Provider Nurse Practitioner Gerontology | DX: E11.65 Type 2 diabetes mellitus with hyperglycemia (principal); E11.42 Type 2 diabetes mellitus with diabetic polyneuropathy; E11.621 Type 2 diabetes mellitus with foot ulcer; L97.519 Non-pressure chronic ulcer of other part of right foot with unspecified severity; E78.5 Hyperlipidemia, unspecified; I10 Essential (primary) hypertension; E66.09 Other obesity due to excess calories; Z68.34 Body mass index [BMI] 34.0-34.9, adult; Z79.84 Long term (current) use of oral hypoglycemic drugs | CPT/HCPCS: 82947; 83036; 99212 ==

== ENCOUNTER 2021-10-03 09:52 | Outpatient (RCR) | payer MEDICAID, SELFPAY ==
--- NOTE | ~2021-10-03 | XR_ITS ---
EXAMINATION: XR FOOT, RIGHT CLINICAL INFORMATION: Pain in the great toe on the right COMPARISON: 02/07/2019 TECHNIQUE: AP, lateral, and oblique views of the right foot. FINDINGS: There is no acute fractures seen. Marginal spurring seen at the base of proximal phalanx of great toe. There is soft tissue swelling surrounding the tuft of great toe. The rest of right foot revealed multiple ossicles at the first, second, fifth metatarsophalangeal joints. There is calcification in the plantar fascia and Achilles tendon insertion spur. These findings are stable. Soft tissues are unremarkable XR/XR foot RT min 3V IMPRESSION: No acute fractures seen
--- NOTE | ~2021-10-03 | XR_ITS ---
EXAMINATION: XR CHEST CLINICAL INFORMATION: Pre-HBOT COMPARISON: Previous chest x-ray September 2015 TECHNIQUE: 2 views of the chest were obtained. FINDINGS: The cardiac and mediastinal contours are normal. The lungs are clear. There is no pleural effusion or pneumothorax. There are degenerative changes of the spine. XR/XR chest 2V IMPRESSION: No evidence for acute disease in the chest.
[2021-10-30 11:09] LABS: MANUAL DIFF FLAG NO
[2021-10-30 11:45] LABS: Basophils Absolute Auto 0.1 X10*3/uL (0.0-0.2); Basophils Percent Auto 0.9 % (0-2); Eosinophils Absolute Auto 0.2 X10*3/uL (0.0-0.4); Eosinophils Percent Auto 3.4 % (0-4); Hematocrit 40.3 % (42.0-52.0); Hemoglobin 13.5 g/dl (14.0-18.0); Imm Gran Abs Auto 0.05 X10*3/uL (0.00-0.03); Imm Gran Pct Auto 0.8 % (0.0-0.4); Lymphocytes Absolute Auto 1.8 X10*3/uL (1.2-4.9); Mean Corpuscular HGB Conc 33.5 g/dl (31.0-36.0); Mean Corpuscular Hemoglobin 29.8 pg (27.0-33.0); Monocytes Absolute Auto 0.7 X10*3/uL (0.1-1.2); Neutrophils Absolute Auto 3.7 x10*3/uL (2.0-8.3); Neutrophils Percent Auto 56.9 % (45-73); Platelet Count 187 X10*3/uL (160-400); Red Blood Count 4.53 X10*6/uL (4.60-5.80); Red Cell Distribution Width 12.4 % (11.0-16.0); White Blood Count 6.5 X10*3/uL (4.8-10.8)
[2021-10-30 11:58] LABS: Estimated Average Glucose 169 mg/dL; Hemoglobin A1c % 7.5 %
[2021-10-30 12:12] LABS: Anion Gap 13 (12-20); Blood Urea Nitrogen 29 mg/dL (9-16); C Reactive Protein 0.06 mg/dL (< or = 0.50); Calcium 9.9 mg/dL (8.4-10.2); Carbon Dioxide 28 mmol/L (22-29); Chloride 103 mmol/L (96-108); Estimated Glomerular Filt Rate 48; Glucose Random 173 mg/dL (60-115); Potassium 4.6 mmol/L (3.3-5.1); Sodium 139 mmol/L (135-145)
[2021-10-30 12:33] LABS: Erythrocyte Sedimentation Rate 11 MM/HR (0-15)
[2022-02-12 12:48] LABS: MANUAL DIFF FLAG NO
[2022-02-12 13:25] LABS: Basophils Percent Auto 0.6 % (0-2); Eosinophils Absolute Auto 0.4 X10*3/uL (0.0-0.4); Eosinophils Percent Auto 5.3 % (0-4); Hematocrit 43.1 % (42.0-52.0); Hemoglobin 14.4 g/dl (14.0-18.0); Imm Gran Abs Auto 0.02 X10*3/uL (0.00-0.03); Imm Gran Pct Auto 0.3 % (0.0-0.4); Lymphocytes Absolute Auto 1.8 X10*3/uL (1.2-4.9); Lymphocytes Percent Auto 25.6 % (20-40); Mean Corpuscular HGB Conc 33.4 g/dl (31.0-36.0); Mean Corpuscular Hemoglobin 29.8 pg (27.0-33.0); Mean Corpuscular Volume 89.2 fL (80.0-98.0); Mean Platelet Volume 10.7 fL (9.4-12.4); Monocytes Absolute Auto 0.8 X10*3/uL (0.1-1.2); Monocytes Percent Auto 11.6 % (2-11); Neutrophils Absolute Auto 4.1 x10*3/uL (2.0-8.3); Neutrophils Percent Auto 56.6 % (45-73); Platelet Count 206 X10*3/uL (160-400); Red Blood Count 4.83 X10*6/uL (4.60-5.80); Red Cell Distribution Width 12.7 % (11.0-16.0); White Blood Count 7.2 X10*3/uL (4.8-10.8)
[2022-02-12 13:39] LABS: Estimated Average Glucose 146 mg/dL; Hemoglobin A1c % 6.7 %
[2022-02-12 14:14] LABS: Erythrocyte Sedimentation Rate 23 MM/HR (0-15)
[2022-02-12 14:22] LABS: Anion Gap 17 (12-20); Blood Urea Nitrogen 34 mg/dL (9-16); C Reactive Protein 0.98 mg/dL (< or = 0.50); Calcium 9.9 mg/dL (8.4-10.2); Carbon Dioxide 29 mmol/L (22-29); Chloride 101 mmol/L (96-108); Estimated Glomerular Filt Rate 39; Glucose Random 158 mg/dL (60-115); Potassium 4.5 mmol/L (3.3-5.1); Sodium 142 mmol/L (135-145)
== END 2022-04-09 13:32 | disposition home or self-care (01) ==
LOC: HO.WCC 09:52
PROVIDERS: Physician Assistant; Visit Provider Surgery
DX: E11.621 Type 2 diabetes mellitus with foot ulcer (principal); L97.512 Non-pressure chronic ulcer of other part of right foot with fat layer exposed; E11.69 Type 2 diabetes mellitus with other specified complication; M86.471 Chronic osteomyelitis with draining sinus, right ankle and foot; E11.40 Type 2 diabetes mellitus with diabetic neuropathy, unspecified; I10 Essential (primary) hypertension; Z87.891 Personal history of nicotine dependence; Z79.2 Long term (current) use of antibiotics
CPT/HCPCS: 11042; 15275; 36415; 71046; 73630; 80048; 83036; 84134; 85025; 85652; 86140; 97597; 99183; 99202; 99211; 99212; Q4187

== ENCOUNTER → 2021-10-11 13:37 | Outpatient (BNVA) | payer MEDICAID, SELFPAY | PROVIDERS: PCP Internal Medicine; Visit Provider Urology | DX: Z13.89 Encounter for screening for other disorder (principal) ==

== ENCOUNTER → 2021-10-30 12:44 | Outpatient (BNVA) | payer MEDICAID, SELFPAY | PROVIDERS: PCP Internal Medicine; Visit Provider Dietitian, Registered | DX: E11.65 Type 2 diabetes mellitus with hyperglycemia (principal); Z79.4 Long term (current) use of insulin | CPT/HCPCS: 97803 ==

== ENCOUNTER 2021-11-04 06:03 | Day surgery (SDC) | payer MEDICAID, SELFPAY ==
[2021-10-25 14:29] VITALS: BMI 33.7
--- NOTE | 2021-11-01 09:16 | P.CONAN_ITS ---
Documented by User: Reny Chavez NP 11/01/21 09:17 HPI - Anesthesia Eval Consult details Narrative: 61yo M for Circumcision PMFSH Active Problems Active Problems: All Active Problems (Updated 09/24/21 @ 14:56 by JOSE Akers) Lumbar stenosis (Acute) Ulcer of right great toe due to diabetes mellitus (Acute) DM2 (diabetes mellitus, type 2) (Acute) Balanitis (Acute) Essential hypertension (Acute) Right lumbar radiculopathy (Acute) Type 2 diabetes mellitus with hyperglycemia, with long-term current use of insulin (Acute) Type 2 diabetes mellitus with polyneuropathy (Acute) Hyperlipidemia LDL goal <100 (Acute) Obesity due to excess calories (Acute) Past Medical History Medical History Arthritis of both knees Balanitis DM2 (diabetes mellitus, type 2) Essential hypertension Hyperlipidemia LDL goal <100 Obesity due to excess calories Right lumbar radiculopathy Type 2 diabetes mellitus with hyperglycemia, with long-term current use of insulin Type 2 diabetes mellitus with polyneuropathy Family History Family History Father No problems noted. Mother Diabetes Maternal Grandfather CVD (cardiovascular disease) Maternal Uncle Diabetes Maternal Aunt Diabetes Surgical History Surgical History (Updated 10/25/21 @ 14:17 by Makenna Kasper RN) H/O colonoscopy Hx of appendectomy Hx of tonsillectomy Social History Social History Household Members: None Patient Tobacco Use Status: Former Tobacco user Quit Date: July 2021 Are you DNR?: No Advance Directives: No Advance Directives Information Provided: Yes Meds Allergies Allergy/AdvReac Type Severity Reaction Status Date / Time No Known Allergies Allergy Verified 10/11/21 13:38 [No Known Allergies*] Home Medications Medication Instructions Recorded Confirmed Last Taken Type amlodipine 5 mg tablet 5 mg PO DAILY 03/29/20 10/25/21 Unknown History aspirin 81 mg tablet,delayed 81 mg PO DAILY 03/29/20 10/25/21 10/30/21 History release (Adult Aspirin Regimen) gabapentin 800 mg tablet 800 mg PO BID 03/29/20 10/25/21 Unknown History lisinopril 40 mg tablet 40 mg PO DAILY 03/29/20 10/25/21 Unknown History metformin 1,000 mg tablet 1,000 mg PO BID 03/29/20 10/25/21 Unknown History metoprolol succinate 200 mg 200 mg PO DAILY 03/29/20 10/25/21 Unknown History tablet,extended release 24 hr simvastatin 20 mg tablet 20 mg PO DAILY 03/29/20 10/25/21 Unknown History alcohol swabs (Alcohol Prep Pads) pad TOPICAL DAILY 08/29/21 Unknown History blood sugar diagnostic (FreeStyle #10 ea 08/29/21 Unknown History Lite Strips) hydrochlorothiazide 50 mg tablet 50 mg PO DAILY 08/29/21 10/25/21 Unknown History lancets 33 gauge (TRUEplus Lancets) #100 ea 08/29/21 Unknown History latanoprost 0.005 % eye drops 1 drp OPHTHALMIC (EYE) BEDTIME 08/29/21 10/25/21 Unknown History melatonin 5 mg tablet 10 mg PO BEDTIME PRN 08/29/21 10/25/21 Unknown History naproxen 500 mg tablet,delayed 500 mg PO BID PRN 08/29/21 10/25/21 10/22/21 History release pantoprazole 20 mg tablet,delayed 20 mg PO DAILY 08/29/21 10/25/21 Unknown History release Exam Exam Date and Time: November 01, 2021 0916 Height,Weight and Vital Signs: Height 5 ft 10 in Weight 106.594 kg Pertinent Lab Results Pertinent Lab Results: Laboratory Tests 10/30/21 10/30/21 11:09 11:09 WBC 6.5 Hgb 13.5 L Hct 40.3 L Plt Count 187 Sodium 139 Potassium 4.6 Chloride 103 Carbon Dioxide 28 BUN 29 H Creatinine 1.47 H Assessment and Plan Assessment Anesthesia Assessment: Chart Reviewed Documented by User: Sherry Coronel MD 11/04/21 07:18 [facility] Past Medical History Medical History Arthritis of both knees Balanitis DM2 (diabetes mellitus, type 2) Essential hypertension Hyperlipidemia LDL goal <100 Obesity due to excess calories Right lumbar radiculopathy Type 2 diabetes mellitus with hyperglycemia, with long-term current use of insulin Type 2 diabetes mellitus with polyneuropathy Family History Family History Father No problems noted. Mother Diabetes Maternal Grandfather CVD (cardiovascular disease) Maternal Uncle Diabetes Maternal Aunt Diabetes Family history of problems with anesthesia: No Surgical History Surgical History (Updated 10/25/21 @ 14:17 by Makenna Kasper RN) H/O colonoscopy Hx of appendectomy Hx of tonsillectomy History of Problems with Anesthesia: No Social History Social History Household Members: None Patient Tobacco Use Status: Former Tobacco user Quit Date: July 2021 Are you DNR?: No Advance Directives: No Advance Directives Information Provided: Yes Meds Allergies Allergy/AdvReac Type Severity Reaction Status Date / Time No Known Allergies Allergy Verified 10/11/21 13:38 [No Known Allergies*] Home Medications Medication Instructions Recorded Confirmed Last Taken Type amlodipine 5 mg tablet 5 mg PO DAILY 03/29/20 10/25/21 Unknown History aspirin 81 mg tablet,delayed 81 mg PO DAILY 03/29/20 10/25/21 10/30/21 History release (Adult Aspirin Regimen) gabapentin 800 mg tablet 800 mg PO BID 03/29/20 10/25/21 Unknown History lisinopril 40 mg tablet 40 mg PO DAILY 03/29/20 10/25/21 Unknown History metformin 1,000 mg tablet 1,000 mg PO BID 03/29/20 10/25/21 Unknown History metoprolol succinate 200 mg 200 mg PO DAILY 03/29/20 10/25/21 Unknown History tablet,extended release 24 hr simvastatin 20 mg tablet 20 mg PO DAILY 03/29/20 10/25/21 Unknown History alcohol swabs (Alcohol Prep Pads) pad TOPICAL DAILY 08/29/21 Unknown History blood sugar diagnostic (FreeStyle #10 ea 08/29/21 Unknown History Lite Strips) hydrochlorothiazide 50 mg tablet 50 mg PO DAILY 08/29/21 10/25/21 Unknown History lancets 33 gauge (TRUEplus Lancets) #100 ea 08/29/21 Unknown History latanoprost 0.005 % eye drops 1 drp OPHTHALMIC (EYE) BEDTIME 08/29/21 10/25/21 Unknown History melatonin 5 mg tablet 10 mg PO BEDTIME PRN 08/29/21 10/25/21 Unknown History naproxen 500 mg tablet,delayed 500 mg PO BID PRN 08/29/21 10/25/21 10/22/21 History release pantoprazole 20 mg tablet,delayed 20 mg PO DAILY 08/29/21 10/25/21 Unknown History release Exam Airway Mallampati Class: III (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
[2021-11-04 06:10] VITALS: BP 146/61; PULSE 70; RESP 18; TEMP 36.2; O2SAT 97
[2021-11-04 06:22] LABS: Glucose, Whole Blood 138 mg/dL (60-115)
[2021-11-04] MEDS: Lactated Ringers 1,000 ML 100 ML IVCONT (06:40)
--- NOTE | 2021-11-04 07:34 | MHC.SHP ---
Pre-Procedural Eval Section A Date of Service: 11/04/21 The patient is an INPATIENT: No Changes since office visit: No Cold of Flu in the past 2 weeks, No New Medical Problems, No Changes in Medication and No Patient answered all questions The History & Physical has been completed within 30 days and I have reviewed it.: Yes Section B Chief Complaint: balanitis Allergies: Allergies Allergy/AdvReac Type Severity Reaction Status Date / Time No Known Allergies Allergy Verified 10/11/21 13:38 [No Known Allergies*] Plan I have reviewed the history and physical and performed a pertinent physical examination on my patient. No changes have occurred unless specified.
--- NOTE | 2021-11-04 08:32 | P.OP_ITS ---
Operative Note Operative Note Date of Service: 11/04/21 Narrative: PreOperative Diagnosis: Balanitis and phimosis Post Operative Diagnosis: Balanitis and phimosis Procedure: Circumcision Surgeon: Dr Moy Jarrell Anesthesia: General Indications for procedure: Recurring balanitis in inability to withdrawal foreskin of penile glans. Risks and benefits including bleeding, scarring, need for revision surgery been discussed. Procedure: After informed consent was verified the patient was brought to the operating room and placed in a supine position. Anesthesia was administered per protocol. The patient was prepped and draped sterile fashion. Safety pause time-out was performed. Antibiotics have been given. The penis was examined and proximal incision marked that lay just proximal to the resting position of the penile sulcus. This was followed around the circumference of the penis. A penile ring block was performed using 1% lidoca ine with no epinephrine. Approximately 8 cc. The proximal incision was developed with sharp blade running circumferentially around the penis. The skin was to give a 1 cm separation between the foreskin in the remaining penile shaft skin. The foreskin was withdrawn and the penile glans exposed. A a distal incision was made approximately 5 mm proximal to the penile sulcus. At the area of the frenulum care was taken to empty the penile frenulum intact. Using clamps the dorsal skin was elevated. Using Metzenbaum scissors the avascular plane was entered and proximal and distal incision were joined. The bridging skin was elevated and clamped. It was then divided using Bovie. The sleeve of tissue was then removed circumferentially around the penis using cautery in order to minimize bleeding. The shaft was then examined in any bleeding areas were controlled. More local anesthetic was injected into the plane beneath avascular plane to help with postprocedure pain management. The skin edges after they were appropriately examined low reapposed. A 3-0 chromic suture was placed at 12:00 o'clock and 06:00 o'clock positions. Interrupted 3-0 was then placed the 09:00 o'clock and 3 o'clock position. Each quadrant was then filled with 3 sutures using 4-0 chromic. At the completion of the procedure there was adequate hemostasis. The incision was washed and dried. Antibiotic cream was applied to the incision. A Elysia wrap was applied followed by a Coban dressing. Xeroform gauze had been used to cover antibiotic ointment. He tolerated the procedure well and was extubated in the room and transferred in stable condition to the recovery area. Pathology: Foreskin Drains: none
[2021-11-04 08:36] VITALS: BP 119/72; PULSE 75; RESP 16; TEMP 36.6; O2SAT 95
[2021-11-04 08:41] VITALS: BP 129/70; PULSE 75; RESP 16; O2SAT 94
[2021-11-04 08:46] VITALS: BP 124/73; PULSE 71; RESP 16; O2SAT 93
[2021-11-04 08:51] VITALS: BP 131/73; PULSE 72; RESP 16; O2SAT 95
[2021-11-04 09:06] VITALS: BP 136/81; PULSE 70; RESP 16; TEMP 36.1; O2SAT 96
== END 2021-11-04 09:44 | disposition home or self-care (01) ==
PROVIDERS: PCP Internal Medicine; Visit Provider Urology
PROC: (CPT 54161; principal; 2021-11-04 07:30)
DX: N48.1 Balanitis (principal); N47.1 Phimosis; E11.65 Type 2 diabetes mellitus with hyperglycemia; E11.42 Type 2 diabetes mellitus with diabetic polyneuropathy; I10 Essential (primary) hypertension; E78.5 Hyperlipidemia, unspecified; E66.09 Other obesity due to excess calories; Z79.84 Long term (current) use of oral hypoglycemic drugs; Z79.82 Long term (current) use of aspirin; Z79.899 Other long term (current) drug therapy; Z87.891 Personal history of nicotine dependence
CPT/HCPCS: 54161; 82947; 88304; J0690; J1100; J2250; J2405; J3010

== ENCOUNTER 2021-11-26 10:05 | Outpatient (REF) | payer MEDICAID, SELFPAY ==
[2021-11-26 11:37] LABS: Alanine Aminotransferase 40 U/L (0-40); Albumin Level 3.9 g/dL (3.5-5.0); Alkaline Phosphatase 50 U/L (39-117); Anion Gap 12 (12-20); Aspartate Amino Transferase 28 U/L (5-37); Bilirubin Total 0.3 mg/dL (0.0-1.0); Blood Urea Nitrogen 34 mg/dL (9-16); Calcium 9.4 mg/dL (8.4-10.2); Carbon Dioxide 29 mmol/L (22-29); Chloride 104 mmol/L (96-108); Cholesterol 157 mg/dL; Estimated Glomerular Filt Rate 45; Glucose Fasting 134 mg/dL (60-99); HDL Cholesterol 30 mg/dL; LDL Cholesterol Calculated 67 mg/dl; Potassium 4.9 mmol/L (3.3-5.1); Sodium 140 mmol/L (135-145); Total Protein 7.3 g/dL (6.5-8.0); Triglycerides 301 mg/dL
[2021-11-26 11:58] LABS: Creatinine Urine 80.68 mg/dL; Microalbum/Creatinine Ratio Ur 33.4 ug/mg cr
[2021-11-28 03:07] LABS: LDL Cholesterol Direct 84 mg/dL (<100)
== END 2021-11-26 10:06 | disposition home or self-care (01) ==
LOC: HO.LAB 10:05
PROVIDERS: PCP Internal Medicine; Visit Provider Nurse Practitioner Gerontology
DX: E11.65 Type 2 diabetes mellitus with hyperglycemia (principal)
CPT/HCPCS: 36415; 80053; 80061; 82043; 83721

== ENCOUNTER → 2021-11-27 12:55 | Outpatient (BNVA) | payer MEDICAID, SELFPAY | PROVIDERS: PCP Internal Medicine; Visit Provider Nurse Practitioner Gerontology | DX: E11.42 Type 2 diabetes mellitus with diabetic polyneuropathy (principal); E78.5 Hyperlipidemia, unspecified; I10 Essential (primary) hypertension; E66.09 Other obesity due to excess calories; Z68.33 Body mass index [BMI] 33.0-33.9, adult; Z79.84 Long term (current) use of oral hypoglycemic drugs | CPT/HCPCS: 82947; 99212 ==

== ENCOUNTER → 2021-12-04 20:54 | Outpatient (REF) | payer MEDICAID, SELFPAY | LOC: HO.SL 20:54 | PROVIDERS: Visit Provider Internal Medicine | DX: G47.33 Obstructive sleep apnea (adult) (pediatric) (principal); Z79.899 Other long term (current) drug therapy | CPT/HCPCS: 95811 ==

== ENCOUNTER 2021-12-06 08:14 | Emergency (ER) | payer MEDICAID, SELFPAY ==
--- NOTE | ~2021-12-06 | CT_ITS ---
EXAMINATION: CT ABDOMEN AND PELVIS WITHOUT CONTRAST CLINICAL INFORMATION: Abdominal and low back pain. COMPARISON: None TECHNIQUE: Multidetector volumetric imaging was performed from the superior aspect of the liver through the pubic symphysis. Sagittal and coronal reformatted images were obtained on the technologist's workstation. This CT examination was performed using dose optimization techniques as appropriate, variously including the following: *Automated exposure control *Adjustment of mA and/or kV according to patient size (this includes techniques or standardized protocols for targeted exams where dose is matched to indication/reason for exam; i.e. extremities or head) *Use of iterative reconstruction technique DLP: 875.6 mGy-cm FINDINGS: LUNG BASES: There is a calcified granuloma identified at the left lung base. Coronary arterial atherosclerotic disease is noted. LIVER, GALLBLADDER, AND BILIARY TREE: The liver is normal in size, shape, and attenuation. No focal hepatic lesion or biliary ductal dilatation is present. The gallbladder is unremarkable with no evidence of radiopaque gallstones, gallbladder wall thickening, or obvious pericholecystic inflammatory changes. PANCREAS: Subtle focal bulkiness is noted involving the distal part of the body of the pancreas, not optimally evaluated on this noncontrast study (245: 3). SPLEEN: Unremarkable. ADRENAL GLANDS: Mild nodularity of the left adrenal gland is noted without any discrete mass. The right adrenal gland is unremarkable. KIDNEYS AND URETERS: The kidneys are normal in size, shape, and attenuation. No hydronephrosis, hydroureter, or calculi seen. No perinephric stranding. BLADDER: Distended, likely physiologic. GASTROINTESTINAL TRACT: The small and large bowel are unremarkable. The appendix is nonvisualized without any inflammatory changes around the cecum. ABDOMINAL WALL: No significant hernia is appreciated. LYMPH NODES: Normal. VASCULAR: Unremarkable. PELVIC VISCERA: There is no pelvic mass present. No evidence of any free fluid and/or free air. OSSEOUS STRUCTURES: Multilevel moderate degenerative spondylosis. CT/CT abdomen pelvis wo con IMPRESSION: 1. The distal part of the body of the pancreas shows subtle focal bulkiness without evidence of any discrete mass, not optimally characterized on this nonenhanced study. Multiphasic pre and postcontrast CT scan and/or MRI may be considered if clinically appropriate for further clarification. 2. Slight nodularity of the left adrenal gland without any discrete mass. 3. Atherosclerotic coronary arterial disease and calcified granuloma at the left lung base. 4. Multilevel moderate degenerative spondylosis. Fleischner guidelines were followed.
[2021-12-06 08:39] VITALS: BP 123/67; PULSE 75; RESP 18; TEMP 36.3; O2SAT 98; BMI 35.6
--- NOTE | 2021-12-06 09:05 | ED.GENADULT ---
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 Patient states that he has a pinched nerve at the level of T3 in his back and has chronic back pain but today he is having some abdominal pain as well. Patient denies any dizziness, lightheadedness, nausea, vomiting, fever, chills, blurry vision, double vision, loss of vision, chest pain, difficulty breathing, shortness of breath, night sweats, pain with urination, increased urinary frequency, increased urinary urgency, blood in his urine or stool, syncope or a near syncopal episode, recent trauma or falls, bowel incontinence, bladder incontinence, bowel retention, bladder retention, or any other complaints at this time. Onset (ago): day(s) Location: back Radiation: abdomen Severity: mild Severity scale (1-10): 2 Quality: dull Relieving factors: none Exacerbating factors: none Associated symptoms: denies other symptoms Treatments prior to arrival: none Related Data Home Medications Medication Instructions Recorded Confirmed amlodipine 5 mg tablet 5 mg PO DAILY 03/29/20 11/27/21 aspirin 81 mg tablet,delayed 81 mg PO DAILY 03/29/20 11/27/21 release (Adult Aspirin Regimen) gabapentin 800 mg tablet 800 mg PO BID 03/29/20 11/27/21 lisinopril 40 mg tablet 40 mg PO DAILY 03/29/20 11/27/21 metformin 1,000 mg tablet 1,000 mg PO BID 03/29/20 11/27/21 metoprolol succinate 200 mg 200 mg PO DAILY 03/29/20 11/27/21 tablet,extended release 24 hr simvastatin 20 mg tablet 20 mg PO DAILY 03/29/20 11/27/21 alcohol swabs (Alcohol Prep Pads) pad topical DAILY 08/29/21 11/27/21 blood sugar diagnostic (FreeStyle #10 ea 08/29/21 11/27/21 Lite Strips) hydrochlorothiazide 50 mg tablet 50 mg PO DAILY 08/29/21 11/27/21 lancets 33 gauge (TRUEplus Lancets) #100 ea 08/29/21 11/27/21 latanoprost 0.005 % eye drops 1 drp ophthalmic (eye) BEDTIME 08/29/21 11/27/21 melatonin 5 mg tablet 10 mg PO BEDTIME PRN insomnia 08/29/21 11/27/21 naproxen 500 mg tablet,delayed 500 mg PO BID PRN pain 08/29/21 11/27/21 release pantoprazole 20 mg tablet,delayed 20 mg PO DAILY 08/29/21 11/27/21 release Previous Rx's Medication Instructions Recorded diphenoxylate-atropine 2.5 1 tab PO DAILY PRN diarrhea #4 tabs 01/21/21 mg-0.025 mg tablet (Lomotil) clotrimazole-betamethasone 1 1 appl topical BID 4 weeks #45 08/29/21 %-0.05 % topical cream grams empagliflozin 25 mg tablet 25 mg PO QAM #30 tabs 10/01/21 (Jardiance) tramadol 50 mg tablet 50 mg PO Q6H PRN pain (scale score 11/04/21 1-3) #8 tabs dulaglutide 4.5 mg/0.5 mL 4.5 mg (0.5 mL) subcut QWEEK #2 mL 11/27/21 subcutaneous pen injector (Trulicity) repaglinide 0.5 mg tablet 0.5 mg PO TID #90 tabs 11/27/21 Allergies Allergy/AdvReac Type Severity Reaction Status Date / Time No Known Allergies Allergy Verified 10/11/21 13:38 [No Known Allergies*] Review of Systems Constitutional: Constitutional: Reports no additional constitutional complaints, Denies chills, Denies fever(s) and Denies night sweats Eyes: Eyes: Reports no additional eye complaints, Denies blurry vision, Denies change in vision, Denies diplopia, Denies eye discharge, Denies loss of vision and Denies eye pain ENT: Denies dizziness Cardiovascular: Cardiovascular: Reports no additional cardiovascular complaints, Denies chest pain, Denies lightheadedness, Denies Loss of Consciousness and Denies dyspnea Respiratory: Respiratory: Reports no additional respiratory complaints and Denies dyspnea Gastrointestinal: Gastrointestinal: Reports no additional gastrointestinal complaints, Reports abdominal pain, Denies melena, Denies hematochezia, Denies change in bowel habits and Denies change in stool character Genitourinary: Genitourinary: Reports no additional male genitourinary complaints, Denies hematuria, Denies oliguria, Denies difficulty urinating, Denies dysuria, Denies urinary frequency, Denies urinary hesitancy, Denies urinary incontinence and Denies urinary urgency Musculoskeletal: Musculoskeletal: Reports no additional musculoskeletal complaints, Reports back pain, Denies numbness and Denies tingling Neurologic: Denies dizziness, Denies loss of vision, Denies numbness and Denies tingling Psychiatric: Psychiatric: Reports no additional psychiatric complaints Endocrine: Endocrine: Reports no additional endocrine complaints Hematologic/Lymphatic: Hematologic/Lymphatic: Reports no additional hematologic/lymphatic complaints Allergic/Immunologic: Allergic/Immunologic: Reports no additional allergic/immunologic complaints PMFSH Past Medical History Attestation statement: The following information was validated with the patient. Source: old records reviewed Medical History Arthritis of both knees Balanitis DM2 (diabetes mellitus, type 2) Essential hypertension Hyperlipidemia LDL goal <100 Obesity due to excess calories Right lumbar radiculopathy Type 2 diabetes mellitus with hyperglycemia, with long-term current use of insulin Type 2 diabetes mellitus with polyneuropathy Surgical History H/O colonoscopy Hx of appendectomy Hx of tonsillectomy Family History Family History Father No problems noted. Mother Diabetes Maternal Grandfather CVD (cardiovascular disease) Maternal Uncle Diabetes Maternal Aunt Diabetes Social History Social History Household Members: None Patient Tobacco Use Status: Former Tobacco user Quit Date: July 2021 Advance Directives: No Advance Directives Information Provided: No Physical Exam ED Vital Signs: Vital Signs - 24 hr 12/06/21 08:39 Temperature 97.3 F Pulse Rate 75 Respiratory Rate 18 Blood Pressure 123/67 Pulse Oximetry 98 BMI result Body Mass Index 35.6 Const General: cooperative, no acute distress, alert and awake Nutritional Appearance: well nourished Orientation/consciousness: patient oriented x3 Limitations: no limitations HENMT Head: Yes normal to inspection and Yes atraumatic Ears: hearing grossly normal bilaterally and external ears normal General nose exam: Normal external nose present, no nasal discharge noted and no epistaxis Face and sinus: Yes normal facial exam, No abrasion and No laceration Mouth: Normal oral and palatal mucosa present, no drooling and no muffled voice Eyes General: appearance normal, both eyes and all related structures Periorbital: periorbital findings normal Eyelids: Yes eyelids normal Conjunctivae: conjunctivae normal Pupils: Equal, round and reactive pupils present EOM: EOMs intact bilaterally Neck Neck: Yes normal visual inspection, Yes full ROM and Yes no lymphadenopathy Chest Chest palpation & inspection: normal inspection of the chest Resp Effort & Inspection: normal respiratory effort and able to speak in complete sentences Auscultation: clear to auscultation bilaterally Cardio Rate: regular rate Rhythm: regular rhythm GI Inspection: Yes normal to inspection Palpation (GI): Soft to palpation, not firm, nontender and no guarding Neuro General: patient oriented x3 and moves all extremities Cranial nerves: Yes Equal, round and reactive pupils present Cognition (Neuro): normal cognition Motor exam (neuro): 5/5 motor strength present throughout Sensory Exam: Normal double simultaneous stimulation for sensation Coordination: [id number] test normal Extrem General: Yes normal to inspection, Yes full ROM and Yes capillary refill normal Psych Appearance: grossly normal Mental Status: mental status grossly normal Affect: normal affect Attitude: cooperative Thought process: Normal thought process present Thought content: Normal thought content present Insight: Good insight present (Psych) Medical Decision Making MDM Narrative Medical decision making narrative: Patient is a 61 year old male presenting to the emergency department today with abdominal pain and chronic back pain. Patient's physical exam was unremarkable. Patient's blood work was unremarkable. Patient's urine showed no acute process. Patient's EKG was unremarkable. Patient's abdominal CT showed a questionable part of the pancreas that recommends further imaging but is otherwise unremarkable. Patient did not have a clinical presentation of pancreatitis. I explained my physical exam findings as well as all test results to the patient. I answered all questions asked by the patient. I stressed the importance of the patient taking his medication as prescribed. I stressed the importance of the patient following up with his primary care provider. I stressed the importance of the patient returning to the emergency department immediately if his symptoms were to worsen or if he were to develop any dizziness, shortness of breath, difficulty breathing, chest pain, blurry vision, loss of vision, nausea, vomiting, abdominal pain, fever, chills, back pain, or any other complaints. Patient verbalized agreement and understanding with this treatment plan and discharge. Differential Diagnosis Differential Diagnosis: abdominal pain, chronic back pain Medical Records Medical records reviewed: Yes I reviewed the patient's medical records. Lab Data Lab results reviewed: Yes I reviewed the patient's lab results. Result diagrams: 12/06/21 10:09 12/06/21 10:09 Labs: Lab Results 12/06/21 12/06/21 12/06/21 Range/Units 09:37 10:09 10:09 WBC 5.8 (4.8-10.8) X10*3/uL RBC 4.70 (4.60-5.80) X10*6/uL Hgb 13.9 L (14.0-18.0) g/dl Hct 41.1 L (42.0-52.0) % MCV 87.4 (80.0-98.0) fL MCH 29.6 (27.0-33.0) pg MCHC 33.8 (31.0-36.0) g/dl RDW 12.8 (11.0-16.0) % Plt Count 186 (160-400) X10*3/uL MPV 10.3 (9.4-12.4) fL Immature Gran % (Auto) 0.5 H (0.0-0.4) % Neut % (Auto) 56.9 (45-73) % Lymph % (Auto) 27.2 (20-40) % Andrew % (Auto) 11.1 H (2-11) % Eos % (Auto) 3.8 (0-4) % Baso % (Auto) 0.5 (0-2) % Lymph # (Auto) 1.6 (1.2-4.9) X10*3/uL Andrew # (Auto) 0.7 (0.1-1.2) X10*3/uL Eos # (Auto) 0.2 (0.0-0.4) X10*3/uL Baso # (Auto) 0.0 (0.0-0.2) X10*3/uL Abs Immat Gran (auto) 0.03 (0.00-0.03) X10*3/uL Absolute Neuts (auto) 3.3 (2.0-8.3) x10*3/uL Absolute Nucleated RBC 0.000 (0.0-0.012) X10*3/uL Nucleated RBC % (auto) 0.0 (0.0-0.2) /100WBC Sodium 140 (135-145) mmol/L Potassium 4.3 (3.3-5.1) mmol/L Chloride 101 (96-108) mmol/L Carbon Dioxide 28 (22-29) mmol/L Anion Gap 15 (12-20) BUN 28 H (9-16) mg/dL Creatinine 1.51 H (0.5-1.4) mg/dL Estim Creat Clear Calc 62.8 Estimated GFR 47 Random Glucose 139 H (60-115) mg/dL Calcium 9.6 (8.4-10.2) mg/dL Magnesium 1.8 (1.6-2.6) mg/dL Total Bilirubin < 0.2 (0.0-1.0) mg/dL AST 27 (5-37) U/L ALT 43 H (0-40) U/L Alkaline Phosphatase 53 (39-117) U/L Troponin I High Sens (<3.5-35.0) ng/L Total Protein 7.7 (6.5-8.0) g/dL Albumin 4.2 (3.5-5.0) g/dL Amylase 66 (28-100) U/L Lipase 60 (8-78) U/L Urine Color STRAW Urine Appearance CLEAR Urine pH 6.0 (5.0-8.0) Ur Specific Beverly 1.015 (1.005-1.025) Urine Protein NEG (NEG-TRACE) MG/DL Urine Glucose (UA) >=1000 H (NEG) MG/DL Urine Ketones NEG (NEG) MG/DL Urine Blood 2+ H (NEG) Urine Nitrite NEG (NEG) Ur Leukocyte Esterase NEG (NEG) Urine RBC 10-14 H (0) /HPF Urine WBC 0 (0-4) /HPF Ur Squamous Epith Cells TRACE /LPF Urine Bacteria NONE /LPF Urine Opiates Screen (Not Detect) Urine Fentanyl Screen (Not Detect) Ur Barbiturates Screen (Not Detect) Ur Phencyclidine Scrn (Not Detect) Ur Amphetamines Screen (Not Detect) U Benzodiazepines Scrn (Not Detect) Urine Cocaine Screen (Not Detect) U Marijuana (THC) Screen (Not Detect) Ethyl Alcohol < 10 mg/dL COVID-19 (MAY) (Negative) COVID-19 Clin Com 12/06/21 12/06/21 12/06/21 Range/Units 10:09 10:09 12:15 WBC (4.8-10.8) X10*3/uL RBC (4.60-5.80) X10*6/uL Hgb (14.0-18.0) g/dl Hct (42.0-52.0) % MCV (80.0-98.0) fL MCH (27.0-33.0) pg MCHC (31.0-36.0) g/dl RDW (11.0-16.0) % Plt Count (160-400) X10*3/uL MPV (9.4-12.4) fL Immature Gran % (Auto) (0.0-0.4) % Neut % (Auto) (45-73) % Lymph % (Auto) (20-40) % Andrew % (Auto) (2-11) % Eos % (Auto) (0-4) % Baso % (Auto) (0-2) % Lymph # (Auto) (1.2-4.9) X10*3/uL Andrew # (Auto) (0.1-1.2) X10*3/uL Eos # (Auto) (0.0-0.4) X10*3/uL Baso # (Auto) (0.0-0.2) X10*3/uL Abs Immat Gran (auto) (0.00-0.03) X10*3/uL Absolute Neuts (auto) (2.0-8.3) x10*3/uL Absolute Nucleated RBC (0.0-0.012) X10*3/uL Nucleated RBC % (auto) (0.0-0.2) /100WBC Sodium (135-145) mmol/L Potassium (3.3-5.1) mmol/L Chloride (96-108) mmol/L Carbon Dioxide (22-29) mmol/L Anion Gap (12-20) BUN (9-16) mg/dL Creatinine (0.5-1.4) mg/dL Estim Creat Clear Calc Estimated GFR Random Glucose (60-115) mg/dL Calcium (8.4-10.2) mg/dL Magnesium (1.6-2.6) mg/dL Total Bilirubin (0.0-1.0) mg/dL AST (5-37) U/L ALT (0-40) U/L Alkaline Phosphatase (39-117) U/L Troponin I High Sens 6.2 5.9 (<3.5-35.0) ng/L Total Protein (6.5-8.0) g/dL Albumin (3.5-5.0) g/dL Amylase (28-100) U/L Lipase (8-78) U/L Urine Color Urine Appearance Urine pH (5.0-8.0) Ur Specific Beverly (1.005-1.025) Urine Protein (NEG-TRACE) MG/DL Urine Glucose (UA) (NEG) MG/DL Urine Ketones (NEG) MG/DL Urine Blood (NEG) Urine Nitrite (NEG) Ur Leukocyte Esterase (NEG) Urine RBC (0) /HPF Urine WBC (0-4) /HPF Ur Squamous Epith Cells /LPF Urine Bacteria /LPF Urine Opiates Screen (Not Detect) Urine Fentanyl Screen (Not Detect) Ur Barbiturates Screen (Not Detect) Ur Phencyclidine Scrn (Not Detect) Ur Amphetamines Screen (Not Detect) U Benzodiazepines Scrn (Not Detect) Urine Cocaine Screen (Not Detect) U Marijuana (THC) Screen (Not Detect) Ethyl Alcohol mg/dL COVID-19 (MAY) Negative (Negative) COVID-19 Clin Com See Note 12/06/21 Range/Units 12:16 WBC (4.8-10.8) X10*3/uL RBC (4.60-5.80) X10*6/uL Hgb (14.0-18.0) g/dl Hct (42.0-52.0) % MCV (80.0-98.0) fL MCH (27.0-33.0) pg MCHC (31.0-36.0) g/dl RDW (11.0-16.0) % Plt Count (160-400) X10*3/uL MPV (9.4-12.4) fL Immature Gran % (Auto) (0.0-0.4) % Neut % (Auto) (45-73) % Lymph % (Auto) (20-40) % Andrew % (Auto) (2-11) % Eos % (Auto) (0-4) % Baso % (Auto) (0-2) % Lymph # (Auto) (1.2-4.9) X10*3/uL Andrew # (Auto) (0.1-1.2) X10*3/uL Eos # (Auto) (0.0-0.4) X10*3/uL Baso # (Auto) (0.0-0.2) X10*3/uL Abs Immat Gran (auto) (0.00-0.03) X10*3/uL Absolute Neuts (auto) (2.0-8.3) x10*3/uL Absolute Nucleated RBC (0.0-0.012) X10*3/uL Nucleated RBC % (auto) (0.0-0.2) /100WBC Sodium (135-145) mmol/L Potassium (3.3-5.1) mmol/L Chloride (96-108) mmol/L Carbon Dioxide (22-29) mmol/L Anion Gap (12-20) BUN (9-16) mg/dL Creatinine (0.5-1.4) mg/dL Estim Creat Clear Calc Estimated GFR Random Glucose (60-115) mg/dL Calcium (8.4-10.2) mg/dL Magnesium (1.6-2.6) mg/dL Total Bilirubin (0.0-1.0) mg/dL AST (5-37) U/L ALT (0-40) U/L Alkaline Phosphatase (39-117) U/L Troponin I High Sens (<3.5-35.0) ng/L Total Protein (6.5-8.0) g/dL Albumin (3.5-5.0) g/dL Amylase (28-100) U/L Lipase (8-78) U/L Urine Color Urine Appearance Urine pH (5.0-8.0) Ur Specific Beverly (1.005-1.025) Urine Protein (NEG-TRACE) MG/DL Urine Glucose (UA) (NEG) MG/DL Urine Ketones (NEG) MG/DL Urine Blood (NEG) Urine Nitrite (NEG) Ur Leukocyte Esterase (NEG) Urine RBC (0) /HPF Urine WBC (0-4) /HPF Ur Squamous Epith Cells /LPF Urine Bacteria /LPF Urine Opiates Screen Not Detected (Not Detect) Urine Fentanyl Screen Not Detected (Not Detect) Ur Barbiturates Screen Not Detected (Not Detect) Ur Phencyclidine Scrn Not Detected (Not Detect) Ur Amphetamines Screen Not Detected (Not Detect) U Benzodiazepines Scrn Not Detected (Not Detect) Urine Cocaine Screen Not Detected (Not Detect) U Marijuana (THC) Screen Not Detected (Not Detect) Ethyl Alcohol mg/dL COVID-19 (MAY) (Negative) COVID-19 Clin Com Imaging Data CT scan - abdomen: Attestation: I personally reviewed and interpreted this imaging study as follows: My impression: No acute process. Radiologist's impression: EXAMINATION: CT ABDOMEN AND PELVIS WITHOUT CONTRAST? CLINICAL INFORMATION: Abdominal and low back pain.? COMPARISON: None? TECHNIQUE: Multidetector volumetric imaging was performed from the superior aspect of the liver through the pubic symphysis. Sagittal and coronal reformatted images were obtained on the technologist's workstation.? This CT examination was performed using dose optimization techniques as appropriate, variously including the following: *Automated exposure control *Adjustment of mA and/or kV according to patient size (this includes techniques or standardized protocols for targeted exams where dose is matched to indication/reason for exam; i.e. extremities or head) *Use of iterative reconstruction technique DLP: 875.6 mGy-cm FINDINGS: LUNG BASES: There is a calcified granuloma identified at the left lung base. Coronary arterial atherosclerotic disease is noted. LIVER, GALLBLADDER, AND BILIARY TREE: The liver is normal in size, shape, and attenuation. No focal hepatic lesion or biliary ductal dilatation is present. The gallbladder is unremarkable with no evidence of radiopaque gallstones, gallbladder wall thickening, or obvious pericholecystic inflammatory changes.? PANCREAS: Subtle focal bulkiness is noted involving the distal part of the body of the pancreas, not optimally evaluated on this noncontrast study (245: 3).? SPLEEN: Unremarkable.? ADRENAL GLANDS: Mild nodularity of the left adrenal gland is noted without any discrete mass. The right adrenal gland is unremarkable.? KIDNEYS AND URETERS: The kidneys are normal in size, shape, and attenuation. No hydronephrosis, hydroureter, or calculi seen. No perinephric stranding. ? BLADDER: Distended, likely physiologic.? GASTROINTESTINAL TRACT: The small and large bowel are unremarkable. The appendix is nonvisualized without any inflammatory changes around the cecum. ABDOMINAL WALL: No significant hernia is appreciated.? LYMPH NODES: Normal. VASCULAR: Unremarkable. PELVIC VISCERA: There is no pelvic mass present. No evidence of any free fluid and/or free air.? OSSEOUS STRUCTURES: Multilevel moderate degenerative spondylosis.? CT/CT abdomen pelvis wo con IMPRESSION: ? 1. The distal part of the body of the pancreas shows subtle focal bulkiness without evidence of any discrete mass, not optimally characterized on this nonenhanced study. Multiphasic pre and postcontrast CT scan and/or MRI may be considered if clinically appropriate for further clarification. 2. Slight nodularity of the left adrenal gland without any discrete mass. 3. Atherosclerotic coronary arterial disease and calcified granuloma at the left lung base. 4. Multilevel moderate degenerative spondylosis. ? Fleischner guidelines were followed. Dictated By: Nicholas Salmon MD Signed By: Electronically signed by Nicholas Salmon MD 12/06/21 1205 ECG Data Attestation: I personally reviewed and interpreted this ECG as follows: Interpretation: Vent. Rate: 077 BPM ? ? Atrial Rate: 077 BPM P-R Int: 170 ms? QRS Dur: 088 ms QT Int: 372 ms ? ? ? P-R-T Axes: 066 -03 035 degrees QTc Int: 420 ms ? Normal sinus rhythm Normal ECG DD/ 1015 Discharge Plan Discharge Clinical Impression: Abdominal pain, Back pain Patient Disposition: Home, Self-Care Instructions: Abdominal Pain (ED), Chronic Back Pain (DC) Additional Instructions: You had incidental findings that require further evaluation of your Pancreas on your CT abdomen scan. Follow up with your primary care provider and a GI specialist. Return to the emergency department immediately if your symptoms worsen or if you develop any dizziness, shortness of breath, difficulty breathing, chest pain, blurry vision, loss of vision, nausea, vomiting, abdominal pain, fever, chills, back pain, or any other complaints. Prescriptions: No Action diphenoxylate-atropine [Lomotil] 2.5-0.025 mg tablet 1 tab PO DAILY PRN (Reason: diarrhea) Qty: 4 0RF tramadol 50 mg tablet 50 mg PO Q6H PRN (Reason: pain (scale score 1-3)) Qty: 8 0RF metformin 1,000 mg tablet 1,000 mg PO BID gabapentin 800 mg tablet 800 mg PO BID simvastatin 20 mg tablet 20 mg PO DAILY metoprolol succinate 200 mg tablet extended release 24 hr 200 mg PO DAILY lisinopril 40 mg tablet 40 mg PO DAILY aspirin [Adult Aspirin Regimen] 81 mg tablet,delayed release (DR/EC) 81 mg PO DAILY amlodipine 5 mg tablet 5 mg PO DAILY hydrochlorothiazide 50 mg tablet 50 mg PO DAILY melatonin 5 mg tablet 10 mg PO BEDTIME PRN (Reason: insomnia) naproxen 500 mg tablet,delayed release (DR/EC) 500 mg PO BID PRN (Reason: pain) pantoprazole 20 mg tablet,delayed release (DR/EC) 20 mg PO DAILY alcohol swabs [Alcohol Prep Pads] Pads, Medicated topical DAILY (DME) FreeStyle Lite Strips Strip See Rx Instructions Not Applicable DAILY Qty: 10 Rx Instructions: As directed latanoprost 0.005 % drops 1 drp ophthalmic (eye) BEDTIME (DME) lancets [TRUEplus Lancets] 33 gauge misc See Rx Instructions Not Applicable DAILY Qty: 100 Rx Instructions: As directed clotrimazole-betamethasone 1-0.05 % cream 1 appl topical BID 28 Days Qty: 45 0RF Rx Instructions: Apply thin coat 2 times per day Trulicity 4.5 mg/0.5 mL pen injector 4.5 mg subcut QWEEK Qty: 2 6RF repaglinide 0.5 mg tablet 0.5 mg PO TID Qty: 90 6RF Rx Instructions: administer within 15minutes of a meal or snack Jardiance 25 mg tablet 25 mg PO QAM Qty: 30 6RF [place]: [facility] [place] [facility] [place] Group] Handy Rosenbaum MD [Primary Care Provider] - Interventions: ED Discharge Assessment Last Done: 12/06/21 13:26 Discharge Date/Time: 12/06/21 13:26 Print Language: Latvian
--- NOTE | 2021-12-06 09:37 | ECG_ITS ---
Test Reason : abd pain Blood Pressure : / mmHG Vent. Rate : 077 BPM Atrial Rate : 077 BPM P-R Int : 170 ms QRS Dur : 088 ms QT Int : 372 ms P-R-T Axes : 066 -03 035 degrees QTc Int : 420 ms Normal sinus rhythm Normal ECG Referred By: Macie Durand Electronically Signed By:Lawson Morris
[2021-12-06 09:43] LABS: Appearance Urine CLEAR; Color Urine STRAW; Glucose Urine UA >=1000 MG/DL (NEG); Leukocyte Esterase Urine NEG (NEG); Nitrite Urine NEG (NEG); Specific Gravity - Urine 1.015 (1.005-1.025); UACC Culture Trigger NO; Urine Blood 2+ (NEG); Urine Ketones NEG (NEG); Urine Protein NEG (NEG-TRACE)
[2021-12-06 09:52] LABS: Squamous Epithelial Cell Urine TRACE /LPF
[2021-12-06 09:53] LABS: WBC Urine 0 /HPF (0-4)
[2021-12-06 10:13] LABS: MANUAL DIFF FLAG NO
[2021-12-06 10:16] LABS: Basophils Percent Auto 0.5 % (0-2); Eosinophils Absolute Auto 0.2 X10*3/uL (0.0-0.4); Eosinophils Percent Auto 3.8 % (0-4); Hematocrit 41.1 % (42.0-52.0); Hemoglobin 13.9 g/dl (14.0-18.0); Imm Gran Abs Auto 0.03 X10*3/uL (0.00-0.03); Imm Gran Pct Auto 0.5 % (0.0-0.4); Lymphocytes Absolute Auto 1.6 X10*3/uL (1.2-4.9); Lymphocytes Percent Auto 27.2 % (20-40); Mean Corpuscular HGB Conc 33.8 g/dl (31.0-36.0); Mean Corpuscular Hemoglobin 29.6 pg (27.0-33.0); Mean Corpuscular Volume 87.4 fL (80.0-98.0); Mean Platelet Volume 10.3 fL (9.4-12.4); Monocytes Absolute Auto 0.7 X10*3/uL (0.1-1.2); Monocytes Percent Auto 11.1 % (2-11); Neutrophils Absolute Auto 3.3 x10*3/uL (2.0-8.3); Neutrophils Percent Auto 56.9 % (45-73); Platelet Count 186 X10*3/uL (160-400); Red Cell Distribution Width 12.8 % (11.0-16.0); White Blood Count 5.8 X10*3/uL (4.8-10.8)
[2021-12-06 10:37] LABS: COVID-19 Test Negative (Negative); IDNOW Serial# 16C4AD1C
[2021-12-06 10:38] LABS: Troponin-I High Sensitivity 6.2 ng/L (<3.5-35.0)
[2021-12-06 10:39] LABS: Alanine Aminotransferase 43 U/L (0-40); Albumin Level 4.2 g/dL (3.5-5.0); Alkaline Phosphatase 53 U/L (39-117); Anion Gap 15 (12-20); Aspartate Amino Transferase 27 U/L (5-37); Blood Urea Nitrogen 28 mg/dL (9-16); Calcium 9.6 mg/dL (8.4-10.2); Carbon Dioxide 28 mmol/L (22-29); Chloride 101 mmol/L (96-108); Creatinine Clr Calc Pharmacy 62.8; Estimated Glomerular Filt Rate 47; Glucose Random 139 mg/dL (60-115); Magnesium 1.8 mg/dL (1.6-2.6); Potassium 4.3 mmol/L (3.3-5.1); Sodium 140 mmol/L (135-145); Total Protein 7.7 g/dL (6.5-8.0)
[2021-12-06 11:20] LABS: Bilirubin Total < 0.2 mg/dL (0.0-1.0)
[2021-12-06 12:37] LABS: Amphetamine Screen Urine Not Detected (Not Detect); Barbiturates, Urine Not Detected (Not Detect); Benzodiazepines Screen Urine Not Detected (Not Detect); Cannabinoid Screen Urine Not Detected (Not Detect); Cocaine Screen Urine Not Detected (Not Detect); Fentanyl, urine Not Detected (Not Detect); Opiate Screen Urine Not Detected (Not Detect); Phencyclidine Screen Urine Not Detected (Not Detect)
[2021-12-06 12:48] LABS: Amylase 66 U/L (28-100); Ethanol < 10 mg/dL; Lipase 60 U/L (8-78)
[2021-12-06 12:49] LABS: Troponin-I High Sensitivity 5.9 ng/L (<3.5-35.0)
== END 2021-12-06 13:26 | disposition home or self-care (01) ==
PROVIDERS: Physician Assistant Medical; Emergency Provider Emergency Medicine; PCP Internal Medicine
DX: R10.30 Lower abdominal pain, unspecified (principal); M54.50 Low back pain, unspecified; Z20.822 Contact with and (suspected) exposure to COVID-19; E11.9 Type 2 diabetes mellitus without complications; I10 Essential (primary) hypertension; E78.5 Hyperlipidemia, unspecified; Z79.02 Long term (current) use of antithrombotics/antiplatelets; Z79.82 Long term (current) use of aspirin; Z79.899 Other long term (current) drug therapy
CPT/HCPCS: 36415; 74176; 80053; 80307; 81001; 82077; 82150; 83690; 83735; 84484; 85025; 87635; 93005; 99283; 99284

== ENCOUNTER 2021-12-24 14:55 | Outpatient (REF) | payer MEDICAID, SELFPAY ==
--- NOTE | ~2021-12-24 | MR_ITS ---
EXAMINATION: MR ABDOMEN WITHOUT AND WITH CONTRAST CLINICAL INFORMATION: Bulky appearance of the pancreas on CT. Rule out mass. COMPARISON: Previous CT of the abdomen and pelvis November 2017 TECHNIQUE: MR abdomen was performed without and with use of 10 mL intravenous Gadavist gadolinium contrast. Postcontrast images are performed in multiphase dynamic sequences. Imaging was performed in 3 planes. FINDINGS: LUNG BASES: The visualized lung bases are unremarkable. LIVER, GALLBLADDER, AND BILIARY TREE: The liver is normal in size, smooth in contour. There is slight signal loss in the liver on out of phase sequences suggestive of mild fatty infiltration. No focal liver lesion. The gallbladder is contracted. There is no intra or extrahepatic biliary duct dilatation. PANCREAS: The body of the pancreas appears prominent measuring 3 cm in AP dimension. Pancreas is normal in signal. No focal pancreatic lesion is seen. The pancreas enhances normally. The peripancreatic fat is normal. The main pancreatic duct is normal. SPLEEN: Normal. ADRENAL GLANDS: There is question of a small 6 mm lesion in the posterior limb of the left adrenal gland. This is not identified on all sequences and difficult to accurately characterize due to small size. The right adrenal gland is normal. KIDNEYS AND URETERS: The kidneys are normal in size, and shape. There are small bilateral renal cysts, largest measuring 1 cm right kidney. No hydronephrosis. No perinephric stranding. GASTROINTESTINAL TRACT: No bowel obstruction. No ascites or fluid collection. ABDOMINAL WALL: No significant hernia is appreciated. LYMPH NODES: No lymphadenopathy. VASCULAR: Unremarkable. OSSEOUS STRUCTURES: Marrow signal normal. There is evidence of degenerative disc disease. MR/MR abdomen wo/w con IMPRESSION: Fullness of the body of the pancreas. No focal pancreatic lesion. Bilateral renal cysts. Question small 6 mm left adrenal lesion. This is difficult to accurately characterize due to small size.
== END 2021-12-24 14:56 | disposition home or self-care (01) ==
LOC: HO.MRI 14:55
PROVIDERS: Visit Provider Internal Medicine
DX: K86.89 Other specified diseases of pancreas (principal)
CPT/HCPCS: 74183; A9585

== ENCOUNTER → 2022-01-08 12:31 | Outpatient (BNVA) | payer MEDICAID, SELFPAY | PROVIDERS: PCP Internal Medicine; Visit Provider Dietitian, Registered | DX: E11.65 Type 2 diabetes mellitus with hyperglycemia (principal); Z79.4 Long term (current) use of insulin; Z71.3 Dietary counseling and surveillance | CPT/HCPCS: 97803 ==

== ENCOUNTER 2022-01-15 08:05 | Outpatient (REF) | payer MEDICAID, SELFPAY ==
--- NOTE | ~2022-01-15 | MR_ITS ---
EXAMINATION: MR OF THE FOOT WITH AND WITHOUT CONTRAST, RIGHT CLINICAL INFORMATION: Nonhealing wound. Great toe osteomyelitis. COMPARISON: Radiograph dated 10/30/2021. TECHNIQUE: Multiplanar MR imaging was obtained through the right foot on a 1.5 Glenys magnet before and after intravenous administration of 10 mL Gadavist. FINDINGS: Soft tissues are swollen at the great toe with a 2 x 1.8 cm skin wound, surrounding soft tissue edema, soft tissue enhancement, and skin thickening. There is edema signal within the great toe at the distal phalangeal tuft with mild enhancement as well as loss of normal fat signal intensity on T1-weighted images (image 7/26 of series 3), consistent with osteomyelitis. No abscess. No evidence of septic arthritis. No additional areas of osteomyelitis are present in the remainder of the foot. There is a bipartite lateral hallux sesamoid. No acute fractures are identified. Mild multifocal osteoarthritis in the foot is most pronounced in the 1st MTP joint and 1st through 3rd tarsometatarsal joints. There is diffuse fatty replacement of the intrinsic foot musculature with associated increased T2 signal intensity in the remaining muscle fibers, most consistent with chronic changes from diabetes. There is mild generalized soft tissue edema signal in the dorsal aspect of the midfoot and forefoot. MR/MR foot RT wo/w con IMPRESSION: Osteomyelitis at the great toe distal phalangeal tuft with an overlying skin wound. No abscess.
== END 2022-01-15 08:06 | disposition home or self-care (01) ==
LOC: HO.MRI 08:05
PROVIDERS: Visit Provider Physician Assistant
DX: E11.621 Type 2 diabetes mellitus with foot ulcer (principal); L97.512 Non-pressure chronic ulcer of other part of right foot with fat layer exposed
CPT/HCPCS: 73720; A9585

== ENCOUNTER → 2022-01-22 12:29 | Outpatient (BNVA) | payer MEDICAID, SELFPAY | PROVIDERS: PCP Internal Medicine; Visit Provider Dietitian, Registered | DX: E11.65 Type 2 diabetes mellitus with hyperglycemia (principal); Z79.4 Long term (current) use of insulin; Z71.3 Dietary counseling and surveillance | CPT/HCPCS: 97803 ==

== ENCOUNTER → 2022-02-05 12:58 | Outpatient (BNVA) | payer MEDICAID, SELFPAY | PROVIDERS: PCP Internal Medicine; Visit Provider Internal Medicine | DX: M86.9 Osteomyelitis, unspecified (principal); E11.621 Type 2 diabetes mellitus with foot ulcer; L97.519 Non-pressure chronic ulcer of other part of right foot with unspecified severity | CPT/HCPCS: 99212 ==

== ENCOUNTER → 2022-02-18 08:46 | Day surgery (SDC) | payer MEDICAID, SELFPAY ==
--- NOTE | 2022-02-18 13:28 | HO.PICC ---
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 Following completion of [place] Protocol the skin and soft tissues were anesthetized with 1% Lidocaine plain. Using ultrasound guidance, left basilic vein access was obtained after second attempt by this RN. Over an 0.018 wire through peel-away sheath, a 4 st helenian PASV PowerPICC Solo line was positioned. Catheter length is 47cm internal length, 0cm external length, for a total trimmed length of 47cm. The procedure was performed in S272. Tip verification was performed by Tomasz Felix with Angel 3CG. Tip located in SVC. Ultrasound was used to document vein patency and for needle entry. A formal ultrasound picture and cardiac rhythm strip was recorded. [employer] Chief Creative Officer has released the line for use and it is currently dressed with a StatLock, Tegaderm, and CHG disc. Verification has been performed for blood return and line patency. Arm Circumference: 33.5cm Equipment: [address] helenian PowerPICC Solo Catheter Type: [address] helenian PowerPICC Solo Lot #: [id number]
== END ==
PROVIDERS: Radiology Diagnostic Radiology; PCP Internal Medicine; Visit Provider Internal Medicine
DX: M86.471 Chronic osteomyelitis with draining sinus, right ankle and foot (principal); E11.621 Type 2 diabetes mellitus with foot ulcer; L97.519 Non-pressure chronic ulcer of other part of right foot with unspecified severity; E11.65 Type 2 diabetes mellitus with hyperglycemia; E11.42 Type 2 diabetes mellitus with diabetic polyneuropathy; I10 Essential (primary) hypertension; Z79.4 Long term (current) use of insulin; Z87.891 Personal history of nicotine dependence; E66.09 Other obesity due to excess calories; Z68.34 Body mass index [BMI] 34.0-34.9, adult
CPT/HCPCS: 36573; C1751

== ENCOUNTER 2022-02-18 13:27 | Outpatient (REF) | payer MEDICAID, SELFPAY | END 2022-02-18 13:28 | disposition home or self-care (01) | LOC: HO.MDS 13:27 | PROVIDERS: Visit Provider Internal Medicine | DX: M86.171 Other acute osteomyelitis, right ankle and foot (principal) | CPT/HCPCS: 36573; 96365; C1751; J1335 ==

== ENCOUNTER 2022-02-19 11:03 | Outpatient (REF) | payer MEDICAID, SELFPAY | END 2022-02-19 11:04 | disposition home or self-care (01) | LOC: HO.MDS 11:03 | PROVIDERS: PCP Internal Medicine; Visit Provider Internal Medicine | DX: M86.171 Other acute osteomyelitis, right ankle and foot (principal) | CPT/HCPCS: 96365; J1335 ==

== ENCOUNTER 2022-02-20 10:56 | Outpatient (REF) | payer MEDICAID, SELFPAY | END 2022-02-20 10:57 | disposition home or self-care (01) | LOC: HO.MDS 10:56 | PROVIDERS: PCP Internal Medicine; Visit Provider Internal Medicine | DX: Z45.2 Encounter for adjustment and management of vascular access device (principal); M86.9 Osteomyelitis, unspecified | CPT/HCPCS: 96365; J1335 ==

== ENCOUNTER 2022-02-21 11:03 | Outpatient (REF) | payer MEDICAID, SELFPAY | END 2022-02-21 11:04 | disposition home or self-care (01) | LOC: HO.MDS 11:03 | PROVIDERS: Visit Provider Internal Medicine | DX: Z45.2 Encounter for adjustment and management of vascular access device (principal); M86.9 Osteomyelitis, unspecified | CPT/HCPCS: 96365; J1335 ==

== ENCOUNTER 2022-02-22 10:00 | Outpatient (REF) | payer MEDICAID, SELFPAY | END 2022-02-22 10:01 | disposition home or self-care (01) | LOC: HO.MDS 10:00 | PROVIDERS: Visit Provider Internal Medicine | DX: Z45.2 Encounter for adjustment and management of vascular access device (principal); M86.9 Osteomyelitis, unspecified | CPT/HCPCS: 96365; J1335 ==

== ENCOUNTER 2022-02-23 09:17 | Outpatient (REF) | payer MEDICAID, SELFPAY | END 2022-02-23 09:18 | disposition home or self-care (01) | LOC: HO.MDS 09:17 | PROVIDERS: Visit Provider Internal Medicine | DX: Z45.2 Encounter for adjustment and management of vascular access device (principal); M86.9 Osteomyelitis, unspecified | CPT/HCPCS: 96365; J1335 ==

== ENCOUNTER 2022-02-24 11:00 | Outpatient (REF) | payer MEDICAID, SELFPAY | END 2022-02-24 11:01 | disposition home or self-care (01) | LOC: HO.MDS 11:00 | PROVIDERS: Visit Provider Internal Medicine | DX: Z45.2 Encounter for adjustment and management of vascular access device (principal); M86.9 Osteomyelitis, unspecified | CPT/HCPCS: 96365; J1335 ==

== ENCOUNTER 2022-02-25 10:50 | Outpatient (REF) | payer MEDICAID, SELFPAY | END 2022-02-25 10:51 | disposition home or self-care (01) | LOC: HO.MDS 10:50 | PROVIDERS: Visit Provider Internal Medicine | DX: M86.171 Other acute osteomyelitis, right ankle and foot (principal) | CPT/HCPCS: 96365; J1335 ==

== ENCOUNTER 2022-02-26 10:57 | Outpatient (REF) | payer MEDICAID, SELFPAY | END 2022-02-26 10:58 | disposition home or self-care (01) | LOC: HO.MDS 10:57 | PROVIDERS: Visit Provider Internal Medicine | DX: Z45.2 Encounter for adjustment and management of vascular access device (principal); M86.171 Other acute osteomyelitis, right ankle and foot; E11.69 Type 2 diabetes mellitus with other specified complication; E11.65 Type 2 diabetes mellitus with hyperglycemia; E11.42 Type 2 diabetes mellitus with diabetic polyneuropathy; Z79.4 Long term (current) use of insulin | CPT/HCPCS: 96365; 99212; J1335 ==

== ENCOUNTER 2022-02-27 10:52 | Outpatient (REF) | payer MEDICAID, SELFPAY | END 2022-02-27 10:53 | disposition home or self-care (01) | LOC: HO.MDS 10:52 | PROVIDERS: Visit Provider Orthopaedic Surgery | DX: Z45.2 Encounter for adjustment and management of vascular access device (principal); M86.171 Other acute osteomyelitis, right ankle and foot | CPT/HCPCS: 96365; J1335 ==

== ENCOUNTER 2022-02-28 10:21 | Outpatient (REF) | payer MEDICAID, SELFPAY | END 2022-02-28 10:22 | disposition home or self-care (01) | LOC: HO.MDS 10:21 | PROVIDERS: Visit Provider Internal Medicine | DX: Z45.2 Encounter for adjustment and management of vascular access device (principal); M86.171 Other acute osteomyelitis, right ankle and foot | CPT/HCPCS: 96365; J1335 ==

== ENCOUNTER 2022-03-01 09:06 | Outpatient (REF) | payer MEDICAID, SELFPAY | END 2022-03-01 09:07 | disposition home or self-care (01) | LOC: HO.MDS 09:06 | PROVIDERS: PCP Internal Medicine; Visit Provider Internal Medicine | DX: Z45.2 Encounter for adjustment and management of vascular access device (principal); M86.171 Other acute osteomyelitis, right ankle and foot | CPT/HCPCS: 96365; J1335 ==

== ENCOUNTER 2022-03-02 09:03 | Outpatient (REF) | payer MEDICAID, SELFPAY | END 2022-03-02 09:04 | disposition home or self-care (01) | LOC: HO.MDS 09:03 | PROVIDERS: PCP Internal Medicine; Visit Provider Internal Medicine | DX: Z45.2 Encounter for adjustment and management of vascular access device (principal); M86.171 Other acute osteomyelitis, right ankle and foot | CPT/HCPCS: 96365; J1335 ==

== ENCOUNTER 2022-03-03 11:23 | Outpatient (REF) | payer MEDICAID, SELFPAY | END 2022-03-03 11:24 | disposition home or self-care (01) | LOC: HO.MDS 11:23 | PROVIDERS: Visit Provider Internal Medicine | DX: Z45.2 Encounter for adjustment and management of vascular access device (principal); M86.171 Other acute osteomyelitis, right ankle and foot | CPT/HCPCS: 96365; J1335 ==

== ENCOUNTER 2022-03-04 11:06 | Outpatient (REF) | payer MEDICAID, SELFPAY | END 2022-03-04 11:07 | disposition home or self-care (01) | LOC: HO.MDS 11:06 | PROVIDERS: Visit Provider Internal Medicine | DX: Z45.2 Encounter for adjustment and management of vascular access device (principal); M86.171 Other acute osteomyelitis, right ankle and foot | CPT/HCPCS: 96365; J1335 ==

== ENCOUNTER 2022-03-05 10:58 | Outpatient (REF) | payer MEDICAID, SELFPAY | END 2022-03-05 10:59 | disposition home or self-care (01) | LOC: HO.MDS 10:58 | PROVIDERS: Visit Provider Internal Medicine | DX: Z45.2 Encounter for adjustment and management of vascular access device (principal); M86.171 Other acute osteomyelitis, right ankle and foot | CPT/HCPCS: 96365; J1335 ==

== ENCOUNTER 2022-03-06 10:51 | Outpatient (REF) | payer MEDICAID, SELFPAY | END 2022-03-06 10:52 | disposition home or self-care (01) | LOC: HO.MDS 10:51 | PROVIDERS: Visit Provider Internal Medicine | DX: Z45.2 Encounter for adjustment and management of vascular access device (principal); M86.171 Other acute osteomyelitis, right ankle and foot | CPT/HCPCS: 96365; J1335 ==

== ENCOUNTER 2022-03-07 10:55 | Outpatient (REF) | payer MEDICAID, SELFPAY | END 2022-03-07 10:56 | disposition home or self-care (01) | LOC: HO.MDS 10:55 | PROVIDERS: Visit Provider Internal Medicine | DX: Z45.2 Encounter for adjustment and management of vascular access device (principal); M86.171 Other acute osteomyelitis, right ankle and foot | CPT/HCPCS: 96365; J1335 ==

== ENCOUNTER 2022-03-08 10:02 | Emergency (ER) | payer MEDICAID, SELFPAY ==
[2022-03-08 10:06] VITALS: BP 148/73; PULSE 75; RESP 18; TEMP 35.7; O2SAT 99; BMI 36.7
== END 2022-03-08 10:29 | disposition left against medical advice (07) ==
LOC: HO.ED 10:28
PROVIDERS: Emergency Provider Emergency Medicine; PCP Internal Medicine
DX: Z76.0 Encounter for issue of repeat prescription (principal); M86.9 Osteomyelitis, unspecified; E11.9 Type 2 diabetes mellitus without complications; I10 Essential (primary) hypertension; E78.5 Hyperlipidemia, unspecified
CPT/HCPCS: 99281

== ENCOUNTER 2022-03-08 10:25 | Outpatient (REF) | payer MEDICAID, SELFPAY | END 2022-03-08 10:26 | disposition home or self-care (01) | LOC: HO.MDS 10:25 | PROVIDERS: Visit Provider Internal Medicine | DX: Z45.2 Encounter for adjustment and management of vascular access device (principal); M86.171 Other acute osteomyelitis, right ankle and foot | CPT/HCPCS: 96365; 99281; J1335 ==

== ENCOUNTER 2022-03-09 10:05 | Outpatient (REF) | payer MEDICAID, SELFPAY | END 2022-03-09 10:06 | disposition home or self-care (01) | LOC: HO.MDS 10:05 | PROVIDERS: Visit Provider Internal Medicine | DX: Z45.2 Encounter for adjustment and management of vascular access device (principal); M86.171 Other acute osteomyelitis, right ankle and foot | CPT/HCPCS: 96365; J1335 ==

== ENCOUNTER 2022-03-10 11:34 | Outpatient (REF) | payer MEDICAID, SELFPAY | END 2022-03-10 11:35 | disposition home or self-care (01) | LOC: HO.MDS 11:34 | PROVIDERS: PCP Internal Medicine; Visit Provider Internal Medicine | DX: Z45.2 Encounter for adjustment and management of vascular access device (principal); M86.171 Other acute osteomyelitis, right ankle and foot | CPT/HCPCS: 96365; J1335 ==

== ENCOUNTER 2022-03-11 11:10 | Outpatient (REF) | payer MEDICAID, SELFPAY | END 2022-03-11 11:11 | disposition home or self-care (01) | LOC: HO.MDS 11:10 | PROVIDERS: Visit Provider Hospitalist | DX: Z45.2 Encounter for adjustment and management of vascular access device (principal); M86.171 Other acute osteomyelitis, right ankle and foot | CPT/HCPCS: 96365; J1335 ==

== ENCOUNTER 2022-03-12 10:50 | Outpatient (REF) | payer MEDICAID, SELFPAY | END 2022-03-12 10:51 | disposition home or self-care (01) | LOC: HO.MDS 10:50 | PROVIDERS: Visit Provider Hospitalist | DX: Z45.2 Encounter for adjustment and management of vascular access device (principal); M86.171 Other acute osteomyelitis, right ankle and foot | CPT/HCPCS: 96365; J1335 ==

== ENCOUNTER 2022-03-13 10:47 | Outpatient (REF) | payer MEDICAID, SELFPAY | END 2022-03-13 10:48 | disposition home or self-care (01) | LOC: HO.MDS 10:47 | PROVIDERS: Visit Provider Hospitalist | DX: Z45.2 Encounter for adjustment and management of vascular access device (principal); M86.171 Other acute osteomyelitis, right ankle and foot | CPT/HCPCS: 96365; J1335 ==

== ENCOUNTER 2022-03-14 11:04 | Outpatient (REF) | payer MEDICAID, SELFPAY | END 2022-03-14 11:05 | disposition home or self-care (01) | LOC: HO.MDS 11:04 | PROVIDERS: Visit Provider Hospitalist | DX: Z45.2 Encounter for adjustment and management of vascular access device (principal); M86.171 Other acute osteomyelitis, right ankle and foot; E11.621 Type 2 diabetes mellitus with foot ulcer; L97.519 Non-pressure chronic ulcer of other part of right foot with unspecified severity | CPT/HCPCS: 96365; 99212; J1335 ==

== ENCOUNTER 2022-03-15 10:02 | Outpatient (REF) | payer MEDICAID, SELFPAY | END 2022-03-15 10:03 | disposition home or self-care (01) | LOC: HO.MDS 10:02 | PROVIDERS: PCP Internal Medicine; Visit Provider Hospitalist | DX: Z45.2 Encounter for adjustment and management of vascular access device (principal); M86.171 Other acute osteomyelitis, right ankle and foot | CPT/HCPCS: 96365; J1335 ==

== ENCOUNTER 2022-03-16 09:55 | Outpatient (REF) | payer MEDICAID, SELFPAY | END 2022-03-16 09:56 | disposition home or self-care (01) | LOC: HO.MDS 09:55 | PROVIDERS: PCP Internal Medicine; Visit Provider Hospitalist | DX: Z45.2 Encounter for adjustment and management of vascular access device (principal); M86.171 Other acute osteomyelitis, right ankle and foot | CPT/HCPCS: 96365; J1335 ==

== ENCOUNTER 2022-03-17 11:16 | Outpatient (REF) | payer MEDICAID, SELFPAY | END 2022-03-17 11:17 | disposition home or self-care (01) | LOC: HO.MDS 11:16 | PROVIDERS: Visit Provider Hospitalist | DX: Z45.2 Encounter for adjustment and management of vascular access device (principal); M86.171 Other acute osteomyelitis, right ankle and foot | CPT/HCPCS: 96365; J1335 ==

== ENCOUNTER 2022-03-18 11:00 | Outpatient (REF) | payer MEDICAID, SELFPAY | END 2022-03-18 11:01 | disposition home or self-care (01) | LOC: HO.MDS 11:00 | PROVIDERS: Visit Provider Hospitalist | DX: Z45.2 Encounter for adjustment and management of vascular access device (principal); M86.171 Other acute osteomyelitis, right ankle and foot | CPT/HCPCS: 96365; J1335 ==

== ENCOUNTER 2022-03-19 10:51 | Outpatient (REF) | payer MEDICAID, SELFPAY | END 2022-03-19 10:52 | disposition home or self-care (01) | LOC: HO.MDS 10:51 | PROVIDERS: Visit Provider Hospitalist | DX: Z45.2 Encounter for adjustment and management of vascular access device (principal); M86.171 Other acute osteomyelitis, right ankle and foot | CPT/HCPCS: 96365; J1335 ==

== ENCOUNTER 2022-03-20 10:48 | Outpatient (REF) | payer MEDICAID, SELFPAY | END 2022-03-20 10:49 | disposition home or self-care (01) | LOC: HO.MDS 10:48 | PROVIDERS: Visit Provider Hospitalist | DX: Z45.2 Encounter for adjustment and management of vascular access device (principal); M86.171 Other acute osteomyelitis, right ankle and foot | CPT/HCPCS: 96365; J1335 ==

== ENCOUNTER 2022-03-21 10:45 | Outpatient (REF) | payer MEDICAID, SELFPAY | END 2022-03-21 10:46 | disposition home or self-care (01) | LOC: HO.MDS 10:45 | PROVIDERS: Visit Provider Hospitalist | DX: Z45.2 Encounter for adjustment and management of vascular access device (principal); M86.171 Other acute osteomyelitis, right ankle and foot | CPT/HCPCS: 96365; J1335 ==

== ENCOUNTER 2022-03-22 09:41 | Outpatient (REF) | payer MEDICAID, SELFPAY | END 2022-03-22 09:42 | disposition home or self-care (01) | LOC: HO.MDS 09:41 | PROVIDERS: PCP Internal Medicine; Visit Provider Hospitalist | DX: Z45.2 Encounter for adjustment and management of vascular access device (principal); M86.171 Other acute osteomyelitis, right ankle and foot | CPT/HCPCS: 96365; J1335 ==

== ENCOUNTER 2022-03-23 09:51 | Outpatient (REF) | payer MEDICAID, SELFPAY | END 2022-03-23 09:52 | disposition home or self-care (01) | LOC: HO.MDS 09:51 | PROVIDERS: Visit Provider Hospitalist | DX: Z45.2 Encounter for adjustment and management of vascular access device (principal); M86.171 Other acute osteomyelitis, right ankle and foot | CPT/HCPCS: 96365; J1335 ==

== ENCOUNTER 2022-03-24 11:22 | Outpatient (REF) | payer MEDICAID, SELFPAY | END 2022-03-24 11:23 | disposition home or self-care (01) | LOC: HO.MDS 11:22 | PROVIDERS: Visit Provider Hospitalist | DX: Z45.2 Encounter for adjustment and management of vascular access device (principal); M86.171 Other acute osteomyelitis, right ankle and foot | CPT/HCPCS: 96365; J1335 ==

== ENCOUNTER 2022-03-25 10:34 | Outpatient (REF) | payer MEDICAID, SELFPAY | END 2022-03-25 10:35 | disposition home or self-care (01) | LOC: HO.MDS 10:34 | PROVIDERS: Visit Provider Hospitalist | DX: Z45.2 Encounter for adjustment and management of vascular access device (principal); M86.171 Other acute osteomyelitis, right ankle and foot | CPT/HCPCS: 96365; J1335 ==

== ENCOUNTER 2022-03-26 10:53 | Outpatient (REF) | payer MEDICAID, SELFPAY | END 2022-03-26 10:54 | disposition home or self-care (01) | LOC: HO.MDS 10:53 | PROVIDERS: Visit Provider Hospitalist | DX: Z45.2 Encounter for adjustment and management of vascular access device (principal); M86.171 Other acute osteomyelitis, right ankle and foot | CPT/HCPCS: 96365; J1335 ==

== ENCOUNTER 2022-03-27 10:50 | Outpatient (REF) | payer MEDICAID, SELFPAY | END 2022-03-27 10:51 | disposition home or self-care (01) | LOC: HO.MDS 10:50 | PROVIDERS: Visit Provider Hospitalist | DX: Z45.2 Encounter for adjustment and management of vascular access device (principal); M86.171 Other acute osteomyelitis, right ankle and foot | CPT/HCPCS: 96365; J1335 ==

== ENCOUNTER 2022-03-28 10:54 | Outpatient (REF) | payer MEDICAID, SELFPAY | END 2022-03-28 10:55 | disposition home or self-care (01) | LOC: HO.MDS 10:54 | PROVIDERS: Visit Provider Hospitalist | DX: Z45.2 Encounter for adjustment and management of vascular access device (principal); M86.171 Other acute osteomyelitis, right ankle and foot | CPT/HCPCS: 96365; J1335 ==

== ENCOUNTER 2022-03-29 10:06 | Outpatient (REF) | payer MEDICAID, SELFPAY | END 2022-03-29 10:07 | disposition home or self-care (01) | LOC: HO.MDS 10:06 | PROVIDERS: PCP Internal Medicine; Visit Provider Hospitalist | DX: Z45.2 Encounter for adjustment and management of vascular access device (principal); M86.171 Other acute osteomyelitis, right ankle and foot | CPT/HCPCS: 96365; J1335 ==

== ENCOUNTER 2022-03-30 09:58 | Outpatient (REF) | payer MEDICAID, SELFPAY | END 2022-03-30 09:59 | disposition home or self-care (01) | LOC: HO.MDS 09:58 | PROVIDERS: PCP Internal Medicine; Visit Provider Hospitalist | DX: Z45.2 Encounter for adjustment and management of vascular access device (principal); M86.171 Other acute osteomyelitis, right ankle and foot | CPT/HCPCS: 96365; J1335 ==

== ENCOUNTER 2022-03-31 11:22 | Outpatient (REF) | payer MEDICAID, SELFPAY | END 2022-03-31 11:23 | disposition home or self-care (01) | LOC: HO.MDS 11:22 | PROVIDERS: Visit Provider Hospitalist | DX: Z45.2 Encounter for adjustment and management of vascular access device (principal); M86.171 Other acute osteomyelitis, right ankle and foot | CPT/HCPCS: 96374; J1335 ==

== ENCOUNTER → 2022-04-01 10:53 | Outpatient (BNVA) | payer MEDICAID, SELFPAY | PROVIDERS: PCP Internal Medicine; Visit Provider Internal Medicine | DX: M86.9 Osteomyelitis, unspecified (principal) | CPT/HCPCS: 99212 ==

== ENCOUNTER 2022-04-02 12:34 | Outpatient (REF) | payer MEDICAID, SELFPAY ==
--- NOTE | 2022-04-02 12:54 | HO.REMOVAL ---
Removal of PICC/Midline Removal of PICC/Midline: Removal of PICC: 1. Date: [04/02/2022] 2. Reason removed: NO LONGER NEEDED[] 3. Inserted length: [47CM SINGLE LUMEN PICC INTO LEFT BASILIC VEIN] 4. Removed length: [47CM SINGLE LUMEN PICC INTACT] 5. A dressing was placed over the site upon removal-NO EDEMATOUS OR BLEEDING AT SITE.
== END 2022-04-02 12:35 | disposition home or self-care (01) ==
LOC: HO.RADIR 12:34
PROVIDERS: Visit Provider Internal Medicine
DX: Z13.89 Encounter for screening for other disorder (principal)

== ENCOUNTER 2022-06-09 14:13 | Outpatient (RCR) | payer MEDICAID, SELFPAY ==
--- NOTE | ~2022-06-09 | XR_ITS ---
EXAMINATION: XR FOOT, RIGHT CLINICAL INFORMATION: Nonhealing right toe wound. COMPARISON: None TECHNIQUE: AP, lateral, and oblique views of the right foot. FINDINGS: A soft tissue wound is seen in the first digit distally. Cortical irregularity seen along the distal margin of the distal phalanx. There is no acute fracture or dislocation. The tarsal bones are normally aligned. Very small plantar and small retrocalcaneal spurs. XR/XR foot RT 2V IMPRESSION: 1. Soft tissue wound in the first digit with cortical irregularity along the distal margin of the distal phalanx. Osteomyelitis cannot be excluded. Correlate with physical exam. 2. Small degenerative calcaneal spurs.
== END 2022-07-03 16:00 | disposition home or self-care (01) ==
LOC: HO.WCC 14:13
PROVIDERS: Visit Provider Surgery
DX: E11.621 Type 2 diabetes mellitus with foot ulcer (principal); L97.512 Non-pressure chronic ulcer of other part of right foot with fat layer exposed; E11.42 Type 2 diabetes mellitus with diabetic polyneuropathy; I10 Essential (primary) hypertension; Z87.891 Personal history of nicotine dependence
CPT/HCPCS: 11042; 73620; 99212

== ENCOUNTER 2022-08-08 10:30 | Outpatient (RCR) | payer MEDICAID, SELFPAY | END 2022-12-12 09:46 | disposition home or self-care (01) | LOC: HO.WCC 10:30 | PROVIDERS: PCP Registered Nurse; Visit Provider Physician Assistant | DX: E11.621 Type 2 diabetes mellitus with foot ulcer (principal); L97.515 Non-pressure chronic ulcer of other part of right foot with muscle involvement without evidence of necrosis; E11.40 Type 2 diabetes mellitus with diabetic neuropathy, unspecified; L84 Corns and callosities; I10 Essential (primary) hypertension; Z87.891 Personal history of nicotine dependence | CPT/HCPCS: 11042; 11043; 15275; 99212; 99213; Q4187 ==

== ENCOUNTER 2022-12-25 11:00 | Outpatient (RCR) | payer MEDICAID, SELFPAY ==
[2022-12-19 09:27] VITALS: BP 133/74; PULSE 78
== END 2023-03-27 11:22 | disposition home or self-care (01) ==
LOC: HO.PT 11:00
PROVIDERS: PCP Registered Nurse; Visit Provider Registered Nurse
DX: H81.12 Benign paroxysmal vertigo, left ear (principal)
CPT/HCPCS: 95992; 97110; 97112; 97162

== ENCOUNTER 2023-04-29 11:38 | Outpatient (REF) | payer MEDICAID, SELFPAY ==
--- NOTE | ~2023-04-29 | US_ITS ---
EXAMINATION: US VENOUS ULTRASOUND WITH DOPPLER LOWER EXTREMITY, RIGHT CLINICAL INFORMATION: Pain in right leg COMPARISON: None available. TECHNIQUE: Ultrasound of the deep veins is performed from the hip to the calf with compression sonography and color and pulse Doppler assessment. Spectral analysis with color-flow imaging is performed. FINDINGS: There is normal venous compression and respiratory variation and augmented flow. The visualized common femoral vein, superficial femoral vein, profunda femoral vein, popliteal vein, and the trifurcation region shows no evidence of deep venous thrombosis. There is no significant popliteal fossa cyst. There are right groin nodes, largest measuring 4.3 x 1 x 1.9 cm. Another node measures 1.7 x 0.8 x 1.4 cm. A third node measures 1.9 x 0.5 x 1.2 cm. A complex cystic-appearing mass is noted at the medial right ankle with internal echoes and septation measuring 1.6 x 0.7 x 1.4 cm. This could potentially reflect a complicated seroma, hematoma, or potentially an abscess in the appropriate clinical circumstances. If the patient's symptoms persist, followup ultrasound in 5 days 7 days might be of value to exclude proximal propagation from a non-visualized calf vein. US/US venous duplex LE RT IMPRESSION: No DVT demonstrated in the right lower extremity. Prominent right groin nodes as noted above. Complex cystic-appearing mass of the medial right ankle with differential diagnostic possibilities as described.
== END 2023-04-29 11:39 | disposition home or self-care (01) ==
LOC: HO.US 11:38
PROVIDERS: PCP Registered Nurse; Visit Provider Emergency Medicine
DX: M79.604 Pain in right leg (principal); R60.0 Localized edema
CPT/HCPCS: 93971

== ENCOUNTER 2023-05-15 09:28 | Outpatient (REF) | payer MEDICAID, SELFPAY ==
[2023-05-17 23:54] LABS: TS Negative Control Passed; TS Panel A 0; TS Panel B 0; TS Positive Control Passed; TSpotTB Negative (Negative)
== END 2023-05-15 09:29 | disposition home or self-care (01) ==
LOC: HO.HHCL 09:28
PROVIDERS: Visit Provider Registered Nurse
DX: Z11.1 Encounter for screening for respiratory tuberculosis (principal)
CPT/HCPCS: 36415; 86481

== ENCOUNTER 2023-06-25 10:43 | Outpatient (AMB) | payer MEDICAID, SELFPAY ==
--- NOTE | 2023-06-25 10:53 | A.OFFVIS_ITS ---
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 States pain started about 3 months ago and has not gone away. He has swelling and is painful to walk. He uses a cane for support. States he has hx of his big toe partially amputated in 2022 done in [place].Patient is diabetic and explains he had a severe infection and was advised to have it amputated. . 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 Allergies No Known Allergies [No Known Allergies*] Allergy (Verified 06/25/23 10:57) Medication List - Last Reconciled 06/25/23 by Sophie Pedro MD alcohol swabs (Alcohol Prep Pads) pad topical DAILY amlodipine 5 mg PO DAILY aspirin (Adult Aspirin Regimen) 81 mg PO DAILY blood sugar diagnostic (FreeStyle Lite Strips) As directed clotrimazole-betamethasone 1-0.05 % 1 appl topical BID 4 weeks diphenoxylate-atropine 2.5-0.025 mg (Lomotil) 1 tab PO DAILY PRN dulaglutide (Trulicity) 4.5 mg (0.5 mL) subcut QWEEK empagliflozin (Jardiance) 25 mg PO QAM ertapenem 1 g IV Q24H 42 days gabapentin 800 mg PO BID hydrochlorothiazide 50 mg PO DAILY lancets (TRUEplus Lancets) As directed latanoprost 0.005% 1 drp ophthalmic (eye) BEDTIME lisinopril 40 mg PO DAILY melatonin 10 mg PO BEDTIME PRN metformin 1,000 mg PO BID metoprolol succinate ER 200 mg PO DAILY naproxen 500 mg PO BID PRN pantoprazole 20 mg PO DAILY repaglinide 0.5 mg PO TID simvastatin 20 mg PO DAILY tramadol 50 mg PO Q6H PRN HPI HPI Comments History of Present Illness Details History of poorly controlled DM, history of neuropathy. Had osteomyelitis of right great toe, 2020, s/p partial amputation. Had recent cellulitis of right leg 04/2023, treated with antibiotics. Comes today for right heel pain. He says started only 1 month ago. Denies pain, redness or swelling. Points to achilles tendon. Per medical records review, he had US (negative DVT) and foot xray (cannot rule out osteomyelitis on 1st toe?) on 06/08/23. He cannot remember why he needed those. He has not been febrile since. He denies pain on big toe. Xray also showed calcaneal spur proximally where achilles tendon inserts. He follows with vascular. But says he needs to see new PCP to get another referral to see vascular again. [facility] Medical History Arthritis of both knees Balanitis DM2 (diabetes mellitus, type 2) Essential hypertension Hyperlipidemia LDL goal <100 Obesity due to excess calories Osteomyelitis Right lumbar radiculopathy Type 2 diabetes mellitus with hyperglycemia, with long-term current use of insulin Type 2 diabetes mellitus with polyneuropathy Surgical History H/O colonoscopy Hx of tonsillectomy Hx of appendectomy Family History Father No problems noted. 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 MSK: Tender to touch on achilles tendon and heel, right. no swelling or redness or warmth. No other tenderness on ankle or foot. No signs of cellulitis. No foot drop. Strength is 5/5 in all muscle groups tested. No increased tone noted. Neurological: Neurologic examination of the upper and lower extremities was nonfocal with intact sensation, muscle stretch reflexes and without focal motor deficits . Tay?s negative bilaterally. Babinski was down going bilaterally. Clonus was negative. Uses cane to walk. Results Reviewed Results Reviewed: I independently reviewed the results of the following: right foot xray - showed to patient, heel spur Date of Service: 06/09/22 Procedure(s): XR foot RT 2V Accession Number(s): [id number] cc: Nieves Cabrera MD~ EXAMINATION: XR FOOT, RIGHT CLINICAL INFORMATION: Nonhealing right toe wound. COMPARISON: None TECHNIQUE: AP, lateral, and oblique views of the right foot. FINDINGS: A soft tissue wound is seen in the first digit distally. Cortical irregularity seen along the distal margin of the distal phalanx. There is no acute fracture or dislocation. The tarsal bones are normally aligned. Very small plantar and small retrocalcaneal spurs. XR/XR foot RT 2V IMPRESSION: 1. Soft tissue wound in the first digit with cortical irregularity along the distal margin of the distal phalanx. Osteomyelitis cannot be excluded. Correlate with physical exam. 2. Small degenerative calcaneal spurs. Assessment & Plan Assessment & Plan (1) Achilles tendinitis, right leg: Code(s): M76.61 - Achilles tendinitis, right leg (2) Heel spur: Code(s): M77.30 - Calcaneal spur, unspecified foot Qualifiers: Laterality: right Qualified Code(s): M77.31 - Calcaneal spur, right foot Plan Exam suggestive of achilles tendinitis, without clinical signs of infection. Advised ice and elevation. Referring to PT. I though I could teach him to do exercises at home but since gait not stable baseline, I would defer to PT instead. Advised to watch out for signs of infection. He needs appointment with new PCP and follow up with vascular. Assessment and plan discussed with patient, and patient was agreeable. All questions were answered thoroughly. May follow up in 3 months if needed. Sophie Pedro MD, [place] Board Certified, [place] Board of Physical [employer] and Rehabilitation (ABPMR) Board Certified, [place] Board of Electrodiagnostic Medicine (ABEM) Orders: Orders PT Evaluation and Treatment Today M76.61 - Achilles tendinitis, right leg, M77.30 - Calcaneal spur, unspecified foot Coding Level of Care Code New Pt Level 4 (03673) Diagnoses Achilles tendinitis, right leg M76.61 Calcaneal spur of right foot M77.31 Laterality: right
[2023-06-25 10:58] VITALS: BMI 36.6
== END 2023-06-25 11:22 | disposition home or self-care (01) ==
LOC: HO.HOS 10:43
PROVIDERS: PCP Registered Nurse; Visit Provider Physical Medicine & Rehabilitation
DX: M76.61 Achilles tendinitis, right leg (principal); M77.31 Calcaneal spur, right foot
CPT/HCPCS: 99204

== ENCOUNTER → 2023-06-25 10:43 | Outpatient (BNVA) | payer MEDICAID, SELFPAY | PROVIDERS: PCP Registered Nurse; Visit Provider Physical Medicine & Rehabilitation | DX: M76.61 Achilles tendinitis, right leg (principal); M77.31 Calcaneal spur, right foot | CPT/HCPCS: 99202 ==

== ENCOUNTER 2023-09-18 18:20 | Outpatient (REF) | payer MEDICAID, SELFPAY | END 2023-09-18 18:21 | disposition home or self-care (01) | LOC: HO.HHCLNP 18:20 | PROVIDERS: Visit Provider Registered Nurse | DX: R35.0 Frequency of micturition (principal); E11.65 Type 2 diabetes mellitus with hyperglycemia | CPT/HCPCS: 87086; 87147 ==

== ENCOUNTER 2023-10-06 11:00 | Outpatient (RCR) | payer MEDICAID, MEDICARE, SELFPAY ==
[2023-09-01 11:57] VITALS: BP 122/60; PULSE 57
--- NOTE | 2023-09-01 15:06 | MHC.PT.EP ---
[facility] [place] Office [place] Office [place] Office [address] Froylan Jarvis [address] [phone] F: [phone] F: [phone] F: [phone] F: [phone] Physical Therapy Plan of Care Date of Evaluation: 09/01/23 Date of Surgery: Diagnosis: Benign paroxysmal positional vertigo, unspecified laterality Assessment: Pt is a pleasant 62yo M who presents to PT with dizziness. Pt presents to PT with current impairments in dizziness, decreased balance/proprioception, and impaired gait. Upon assessment, pt tested positive for left posterior canal BPPV. He is limited functionally by getting up from the bed, laying down, bending forward, and showering. He is an excellent candidate for skilled PT in order to address current impairments and to treat BPPV. He is recommended to be seen 2x/week for 3 weeks and will be reassessed at that time Frequency and Duration: The patient will be seen 2x/week for 3 weeks Short Term Goals: Pt will perform supine to sit transfers without dizziness or instability Pt will demonstrate ability to ambulate 100' on level surfaces safely with LRAD without dizziness or unsteadiness Residential Goals: Pt will ambulate 1x~200' independently with LRAD on even and uneven surfaces with steady gait safely Pt will shower without dizziness or instability safely Pt will demonstrate ability to bend forward and pick object up from the ground independently without dizziness or instability Treatment Plan: Modalities to reduce pain, spasms and effusion. Manual therapy to restore motion and function. Therapeutic exercise to improve strength and flexibility. Neuromuscular re-education for posture and balance. Therapeutic activities to return to functional activities of daily living. Electronically signed by: Laurita Monzon, PT, DPT Please sign and return to therapist. Thank you for your referral.
--- NOTE | 2023-10-12 11:33 | MHC.PT.DC ---
[facility] [place] Office [place] Office [place] Office [address] Froylan Jarvis [address] [phone] F: [phone] F: [phone] F: [phone] F: [phone] Physical Therapy Discharge Report Diagnosis: Benign paroxysmal positional vertigo, unspecified laterality Date of Surgery: Date of Evaluation: 09/01/23 Date of Discharge: 10/12/23 Treatments to Date: 7 Cancellations to Date: No Shows to Date: 2 Discharge Status: Visit Non-compliance Discharge Summary: Pt was seen for PT from 09/01/23-10/06/23. He has had multiple no-show appointments since SOC. He is being D/C from skilled PT per [facility] attendance policy and visit non-compliance. Pt current level of function unknown at this time Electronically signed by: Laurita Monzon, PT, DPT Please sign and return to therapist. Thank you for your referral.
== END 2023-10-12 11:33 | disposition home or self-care (01) ==
LOC: HO.PT 11:00
PROVIDERS: PCP Registered Nurse; Visit Provider Registered Nurse
DX: H81.10 Benign paroxysmal vertigo, unspecified ear (principal)
CPT/HCPCS: 95992; 97110; 97112; 97140; 97162

== ENCOUNTER → 2023-10-20 10:27 | Outpatient (BNVA) | payer MEDICARE, MEDICAID, SELFPAY | PROVIDERS: PCP Registered Nurse; Visit Provider Physician Assistant ==

== ENCOUNTER 2023-12-11 12:46 | Outpatient (REF) | payer OTHER, SELFPAY ==
--- NOTE | ~2023-12-11 | XR_ITS ---
EXAMINATION: XR TIBIA AND FIBULA, RIGHT CLINICAL INFORMATION: Pain right palomo, cellulitis for 2 days. COMPARISON: None available. TECHNIQUE: AP and lateral views of the right tibia and fibula were obtained. FINDINGS: Diffuse demineralization. Please note that the knee and ankle are minimally imaged and should be evaluated with dedicated views if there is clinical concern. Vascular calcifications. Small ossicle along the inferomedial aspect of the medial malleolus of indeterminate age and etiology. Multiple small calcifications are scattered in the soft tissues of the lower leg. Degenerative changes on very limited images of the knee and ankle. No displaced fracture of the shaft of the tibia/fibula appreciated. XR/XR tibia fibula RT 2V IMPRESSION: 1. Small ossicle along the inferomedial aspect of the medial malleolus of indeterminate age and etiology. 2. Multiple small calcifications are scattered in the soft tissues of the lower leg. 3. Degenerative changes on very limited images of the knee and ankle. 4. No displaced fracture of the shaft of the tibia/fibula appreciated. 5. Dedicated views of the knee and ankle should be considered for further evaluation if there is clinical concern. 6. MRI should be considered if there is clinical concern for bony destruction/osteomyelitis.
== END 2023-12-11 12:47 | disposition home or self-care (01) ==
LOC: HO.HHCX 12:46
PROVIDERS: Visit Provider Registered Nurse
DX: L03.115 Cellulitis of right lower limb (principal)
CPT/HCPCS: 73590

== ENCOUNTER 2023-12-11 13:03 | Outpatient (REF) | payer OTHER, SELFPAY ==
[2023-12-11 16:22] LABS: Estimated Average Glucose 200 mg/dL; Hemoglobin A1c % 8.6 % (<6.0)
[2023-12-11 16:28] LABS: Alanine Aminotransferase 42 U/L (0-40); Albumin Level 4.1 g/dL (3.5-5.0); Alkaline Phosphatase 59 U/L (39-117); Anion Gap 14 (12-20); Aspartate Amino Transferase 33 U/L (5-37); Bilirubin Total 0.3 mg/dL (0.0-1.0); Blood Urea Nitrogen 34 mg/dL (9-16); Carbon Dioxide 26 mmol/L (22-29); Chloride 101 mmol/L (96-108); Cholesterol 141 mg/dL (<200); Estimated Glomerular Filt Rate 39; Glucose Random 139 mg/dL (60-115); HDL Cholesterol 32 mg/dL (>40); LDL Cholesterol Calculated 55 mg/dL (<100); Potassium 4.4 mmol/L (3.3-5.1); Sodium 137 mmol/L (135-145); Total Protein 8.1 g/dL (6.5-8.0); Triglycerides 272 mg/dL (<150)
[2023-12-11 16:47] LABS: Microalbum/Creatinine Ratio Ur 20.4 ug/mg cr (<30)
== END 2023-12-11 13:04 | disposition home or self-care (01) ==
LOC: HO.HHCL 13:03
PROVIDERS: Visit Provider Registered Nurse
DX: E11.65 Type 2 diabetes mellitus with hyperglycemia (principal)
CPT/HCPCS: 36415; 80053; 80061; 82043; 82570; 83036

== ENCOUNTER 2024-01-22 10:17 | Outpatient (REF) | payer OTHER, SELFPAY ==
[2024-01-22 12:03] LABS: Alanine Aminotransferase 49 U/L (0-40); Albumin Level 4.2 g/dL (3.5-5.0); Alkaline Phosphatase 56 U/L (39-117); Anion Gap 16 (12-20); Aspartate Amino Transferase 42 U/L (5-37); Bilirubin Total 0.4 mg/dL (0.0-1.0); Blood Urea Nitrogen 34 mg/dL (9-16); Carbon Dioxide 26 mmol/L (22-29); Chloride 101 mmol/L (96-108); Cholesterol 166 mg/dL (<200); Estimated Glomerular Filt Rate 38; Glucose Random 171 mg/dL (60-115); HDL Cholesterol 31 mg/dL (>40); LDL Cholesterol Calculated 77 mg/dL (<100); Potassium 4.2 mmol/L (3.3-5.1); Sodium 139 mmol/L (135-145); Total Protein 8.2 g/dL (6.5-8.0); Triglycerides 291 mg/dL (<150)
[2024-01-22 12:06] LABS: Prostate Specific Antigen 2.77 ng/mL (<0.05-4.0)
[2024-01-22 12:08] LABS: Creatinine Urine 64.84 mg/dL; Microalbum/Creatinine Ratio Ur 15.4 ug/mg cr (<30)
== END 2024-01-22 10:18 | disposition home or self-care (01) ==
LOC: HO.HHCL 10:17
PROVIDERS: Visit Provider Registered Nurse
DX: Z00.00 Encounter for general adult medical examination without abnormal findings (principal); E11.65 Type 2 diabetes mellitus with hyperglycemia; Z12.5 Encounter for screening for malignant neoplasm of prostate
CPT/HCPCS: 36415; 80053; 80061; 82043; 82570; 84153

== ENCOUNTER 2024-02-25 16:10 | Outpatient (REF) | payer OTHER, SELFPAY | END 2024-02-25 16:11 | disposition home or self-care (01) | LOC: HO.LAB 16:10 | PROVIDERS: PCP Registered Nurse; Referring Provider Registered Nurse; Visit Provider Internal Medicine Hypertension Specialist | DX: N18.9 Chronic kidney disease, unspecified (principal); I10 Essential (primary) hypertension; E11.65 Type 2 diabetes mellitus with hyperglycemia | CPT/HCPCS: 99202 ==

== ENCOUNTER 2024-02-25 16:10 | Outpatient (AMB) | payer OTHER, SELFPAY ==
[2024-02-25 16:15] VITALS: BP 148/72; PULSE 74; O2SAT 97; BMI 35.3
--- NOTE | 2024-02-25 16:15 | HO.NEPHOV ---
Vital Signs 02/25/24 16:15 Height 5 ft 10 in Weight 246 lb BMI 35.3 BP 148/72 H Blood Pressure Location Lt brachial Position Sitting Pulse 74 Pulse Source Pulse Oximeter Pulse Oximetry (%) 97 Oxygen Delivery Method Room Air Intake Visit Reasons: Elevated Serum Creatinine/ Conf Plaster Pattern Caster Required: Yes Plaster Pattern Caster Name: michelle [id number] Accompanied by: Self / Same As Patient Allergies No Known Allergies [No Known Allergies*] Allergy (Verified 02/25/24 16:19) Medication List - Last Reconciled 02/25/24 by Keith Willis MD alcohol swabs (Alcohol Prep Pads) pad topical DAILY amlodipine 10 mg PO DAILY aspirin (Adult Aspirin Regimen) 81 mg PO DAILY blood sugar diagnostic (FreeStyle Lite Strips) As directed clotrimazole-betamethasone 1-0.05 % 1 appl topical BID 4 weeks diphenoxylate-atropine 2.5-0.025 mg (Lomotil) 1 tab PO DAILY PRN dulaglutide (Trulicity) mg subcut gabapentin 800 mg PO BID hydrochlorothiazide 50 mg PO DAILY lancets (TRUEplus Lancets) As directed latanoprost 0.005% 1 drp ophthalmic (eye) BEDTIME melatonin 10 mg PO BEDTIME PRN metformin 1,000 mg PO BID metoprolol succinate ER 200 mg PO DAILY pantoprazole 20 mg PO DAILY polyethylene glycol 3350 (Miralax) 238 grams PO ONCE 1 day pravastatin 40 mg PO DAILY HPI Comments Details: Brandt is a pleasant 62-year-old man with a history of longstanding diabetes mellitus and hypertension. He has been referred for evaluation of chronic kidney disease. Over the past 2 years there has been a gradual increase in serum creatinine from 1.4 up to 1.8 mg/dL. As of 01/19/2024 serum creatinine was 1.8 mg/dL. He was on lisinopril 40 mg along with amlodipine and hydrochlorothiazide 40 mg a day. Recently lisinopril has been placed on hold. He has a history of taking NSAIDs for almost a year but he had stopped NSAIDs about 4 years ago. Ongoing medical problems also includes obstructive sleep apnea history of Jewell's palsy, diabetic polyneuropathy obesity and non alcoholic steatohepatitis. He has a history of smoking he quit smoking in 2022. No history of any alcohol abuse or drug abuse. He complains of increased urinary frequency. No hesitancy no hematuria. No shortness of breath. No cough. No nausea or vomiting. No chest pain. No rash no fever he has chronic leg edema. [facility] Medical History Arthritis of both knees Balanitis DM2 (diabetes mellitus, type 2) Essential hypertension Hyperlipidemia LDL goal <100 Obesity due to excess calories Osteomyelitis Right lumbar radiculopathy Type 2 diabetes mellitus with hyperglycemia, with long-term current use of insulin Type 2 diabetes mellitus with polyneuropathy Surgical History H/O colonoscopy Hx of tonsillectomy Hx of appendectomy Family History Father No problems noted. 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 Comfortable at rest Neck supple no JVD. Lungs entry equal no rales. Heart S1-S2 heard no gallop no rub. Abdomen is obese soft nontender. Neuro is alert and awake no asterixis extremities with 1+ edema. No rash no clubbing. Const General: comfortable; No acute distress Orientation/consciousness: patient oriented x3 Eyes General: appearance normal, both eyes and all related structures Visual Mann: normal visual mann by confrontation Neck Neck: Yes supple and Yes no JVD Resp Effort & Inspection: normal respiratory effort and respiratory effort not decreased Auscultation: rhonchi Cardio Palpation: no palpable S3 and no palpable S4 Heart sounds: no rubs GI Inspection: Yes normal to inspection Palpation (GI): Soft to palpation Percussion: Yes normal to percussion Auscultation: normal bowel sounds General: Yes no CVA tenderness Back/Spine/Pelvis Back: no CVA tenderness Skin General skin exam: no petechiae and no purpura Neuro General: patient oriented x3 and no focal motor deficits Extrem General: No clubbing and No edema Results Reviewed Results Reviewed: Nephrology Results: Sodium 139 mmol/L (135-145) 01/22/24 Potassium 4.2 mmol/L (3.3-5.1) 01/22/24 Chloride 101 mmol/L (96-108) 01/22/24 Carbon Dioxide 26 mmol/L (22-29) 01/22/24 BUN 34 mg/dL (9-16) H 01/22/24 Creatinine 1.82 mg/dL (0.5-1.4) H 01/22/24 Calcium 10.0 mg/dL (8.4-10.2) 01/22/24 Urine Creatinine 64.84 mg/dL 01/22/24 Assessment & Plan Assessment & Plan (1) CKD (chronic kidney disease): Code(s): N18.9 - Chronic kidney disease, unspecified Category: Medical (2) Essential hypertension: Code(s): I10 - Essential (primary) hypertension Category: Medical (3) DM2 (diabetes mellitus, type 2): Code(s): E11.9 - Type 2 diabetes mellitus without complications Category: Medical Qualifiers: Diabetes mellitus complication status: with hyperglycemia Diabetes mellitus nursing home insulin use: without rodent exterminator use Qualified Code(s): E11.65 - Type 2 diabetes mellitus with hyperglycemia Plan 58-year-old man with a history of longstanding diabetes mellitus hypertension with obesity and sleep apnea has chronic kidney disease. Recent serum creatinine was 1.8 mg/dL. Over the last 3 years has been a gradual increase serum creatinine from 1.4-1.8. He probably has underlying chronic kidney disease due to hypertensive diabetic kidney disease. The recent serum creatinine is suggestive of natural progression. Differential diagnosis would include obstructive uropathy. Recent urine sediments were benign and therefore interstitial nephritis or glomerular nephritis seem unlikely at this time. There could be a component of hypoperfusion from the combination of both lisinopril and hydrochlorothiazide. I agree with holding the lisinopril to see if there is any improvement in the serum creatinine. Recommendation Optimize blood pressure. Maintain blood pressure less than 130/80. Stay on low-sodium diet. Encouraged weight loss. For now I will continue with the same dose of diuretics given the leg edema. Agree with holding lisinopril Renal for a short time to see if any improvement renal function. Obtain renal ultrasonogram to assess echogenicity and to rule out any hydronephrosis especially with a history of increased urinary frequency. Continue to avoid nephrotoxic agents including NSAIDs. Further workup will be based on the outcome of the above investigations. I have answered all his questions returned to office in the next few weeks Orders: Orders Basic Metabolic Panel Today I10 - Essential (primary) hypertension, N18.9 - Chronic kidney disease, unspecified Parathyroid Hormone Intact Today I10 - Essential (primary) hypertension, N18.9 - Chronic kidney disease, unspecified UA and rflx microscopic Today I10 - Essential (primary) hypertension, N18.9 - Chronic kidney disease, unspecified Creatinine Urine Today I10 - Essential (primary) hypertension, N18.9 - Chronic kidney disease, unspecified Total Protein Urine Random Today I10 - Essential (primary) hypertension, N18.9 - Chronic kidney disease, unspecified Uric Acid Today I10 - Essential (primary) hypertension, N18.9 - Chronic kidney disease, unspecified Complement C3 Today I10 - Essential (primary) hypertension, N18.9 - Chronic kidney disease, unspecified Complement C4 Today I10 - Essential (primary) hypertension, N18.9 - Chronic kidney disease, unspecified Anti DNA DS Antibody Today I10 - Essential (primary) hypertension, N18.9 - Chronic kidney disease, unspecified Neutrophil Cytoplasma Ab Today I10 - Essential (primary) hypertension, N18.9 - Chronic kidney disease, unspecified US abdomen complete Today I10 - Essential (primary) hypertension, N18.9 - Chronic kidney disease, unspecified Coding Level of Care Code New Pt Level 5 (14854) Diagnoses CKD (chronic kidney disease) N18.9 Essential hypertension I10 Type 2 diabetes mellitus with hyperglycemia, without long-term current use of insulin E11.65 Diabetes mellitus complication status: with hyperglycemia Diabetes mellitus nursing home insulin use: without rodent exterminator use
== END 2024-02-25 16:42 | disposition home or self-care (01) ==
PROVIDERS: PCP Registered Nurse; Referring Provider Registered Nurse; Visit Provider Internal Medicine Hypertension Specialist
DX: I12.9 Hypertensive chronic kidney disease with stage 1 through stage 4 chronic kidney disease, or unspecified chronic kidney disease (principal); E11.22 Type 2 diabetes mellitus with diabetic chronic kidney disease; N18.9 Chronic kidney disease, unspecified
CPT/HCPCS: 99204

== ENCOUNTER 2024-02-29 08:59 | Outpatient (REF) | payer OTHER, SELFPAY ==
[2024-02-29 11:29] LABS: Appearance Urine Clear; Color Urine Yellow; Glucose Urine UA 100 mg/dL (Negative); Leukocyte Esterase Urine Negative (Negative); Nitrite Urine Negative (Negative); Specific Gravity - Urine 1.015 (1.005-1.025); Urine Blood Negative (Negative); Urine Ketones Negative (Negative); Urine Protein Negative (Neg-Trace)
[2024-02-29 12:31] LABS: Anion Gap 11 (12-20); Blood Urea Nitrogen 22 mg/dL (9-16); Carbon Dioxide 30 mmol/L (22-29); Chloride 103 mmol/L (96-108); Estimated Glomerular Filt Rate 45; Glucose Random 175 mg/dL (60-115); Parathyroid Hormone Intact 77.7 pg/mL (8.7-77.1); Potassium 4.4 mmol/L (3.3-5.1); Sodium 140 mmol/L (135-145); Uric Acid 7.9 mg/dL (3.4-7.0)
[2024-02-29 12:33] LABS: Creatinine Urine 81.56 mg/dL; Total Protein Urine Random 15 mg/dL (<12)
[2024-03-01 15:38] LABS: Complement C3 174 mg/dL (82-185)
[2024-03-01 20:14] LABS: Anti DNA DS Antibody 1 IU/mL
[2024-03-02 13:28] LABS: Neutrophil Cyto Ab Screen NEGATIVE (NEGATIVE)
== END 2024-02-29 09:00 | disposition home or self-care (01) ==
LOC: HO.HHCL 08:59
PROVIDERS: Visit Provider Internal Medicine Hypertension Specialist
DX: I10 Essential (primary) hypertension (principal); N18.9 Chronic kidney disease, unspecified
CPT/HCPCS: 36415; 80048; 81003; 82570; 83970; 84156; 84550; 86036; 86160; 86225

== ENCOUNTER 2024-03-02 12:20 | Outpatient (REF) | payer OTHER, SELFPAY ==
--- NOTE | ~2024-03-02 | MR_ITS ---
EXAMINATION: MRI LOWER LEG RIGHT WITHOUT CONTRAST CLINICAL INFORMATION: Right palomo pain, cellulitis. COMPARISON: Radiographs 12/11/2023 TECHNIQUE: MRI without contrast is performed on the right lower leg. FINDINGS: There is diffuse subcutaneous edema. There is diffuse edema of the gastrocnemius and soleus muscles with fluid extending longitudinally along the fascial plane between the medial gastrocnemius and soleus muscle suggesting partial tearing. At the distalmost aspect of the imaged field of view and incompletely evaluated is at least partial tearing of the Achilles tendon for which a dedicated ankle MRI is recommended to evaluate. No acute osseous abnormality. Also inadequately imaged is suspected complex tearing of the posterior horn of the medial meniscus of the right knee with moderate medial compartment osteoarthritis. MR/MR lower leg RT wo con IMPRESSION: 1. Diffuse edema of the gastrocnemius and soleus muscles with fluid extending longitudinally along the fascial plane between the medial gastrocnemius and soleus muscle suggesting partial tearing. No acute osseous abnormality. 2. At the distalmost aspect of the imaged field of view there is at least least partial tearing of the Achilles tendon for which a dedicated ankle MRI is recommended. 3. Probable complex tearing of the posterior horn of the medial meniscus of the right knee with moderate medial compartment osteoarthritis. This is also suboptimally evaluated. Electronically signed by: Art Shay MD 03/07/2024 10:41 AM EDT
== END 2024-03-02 12:21 | disposition home or self-care (01) ==
LOC: HO.MRI 12:20
PROVIDERS: PCP Registered Nurse; Visit Provider Registered Nurse
DX: M85.9 Disorder of bone density and structure, unspecified (principal); M79.89 Other specified soft tissue disorders
CPT/HCPCS: 73718

== ENCOUNTER 2024-03-24 08:43 | Outpatient (REF) | payer OTHER, SELFPAY ==
--- NOTE | ~2024-03-24 | US_ITS ---
EXAMINATION: US RETROPERITONEAL LIMITED (RENAL ONLY) CLINICAL INFORMATION: Chronic kidney disease, unspecified. COMPARISON: MRI abdomen 12/24/2021. CT abdomen and pelvis 12/06/2021. TECHNIQUE: Real-time imaging of the kidneys. FINDINGS: RIGHT KIDNEY: 11.7 x 6.1 x 5.4 cm (SAG x AP x TRV). The kidney is normal in size, contour, and echogenicity. Renal cortical thickness is normal. No renal calculi or hydronephrosis. Redemonstration of right-sided renal cysts, not significantly changed when compared to the prior MRI. Findings are not clinically significant and no dedicated follow-up imaging is recommended. LEFT KIDNEY: 11.7 x 6.0 x 4.6 cm (SAG x AP x TRV). The kidney is normal in size, contour, and echogenicity. Renal cortical thickness is normal. No calculi or focal parenchymal lesions. No hydronephrosis. US/US renal BI IMPRESSION: No hydronephrosis or nephrolithiasis. Electronically signed by: Adeel Davison MD 05/12/2024 02:56 PM KARIME
== END 2024-03-24 08:44 | disposition home or self-care (01) ==
LOC: HO.US 08:43
PROVIDERS: PCP Registered Nurse; Visit Provider Internal Medicine Hypertension Specialist
DX: I12.9 Hypertensive chronic kidney disease with stage 1 through stage 4 chronic kidney disease, or unspecified chronic kidney disease (principal); N18.9 Chronic kidney disease, unspecified
CPT/HCPCS: 76775

== ENCOUNTER 2024-03-25 09:53 | Outpatient (AMB) | payer OTHER, SELFPAY ==
--- NOTE | 2024-03-25 10:05 | A.OFFVIS_ITS ---
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 He states that his pain has come back and he is having a lot of pain in both knees but the right one is worse. 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 The patient was referred by [facility] for further evaluation of the right ankle and knee pain. MRI of the right lower extremity was obtained. While in the office today, the patient reports his right knee pain has returned. He mentions pain in the bilateral knees; however, the right knee is worse than the left knee. The patient has a medical history of diabetes mellitus and chronic kidney disease [facility] Medical History Arthritis of both knees Balanitis DM2 (diabetes mellitus, type 2) Essential hypertension Hyperlipidemia LDL goal <100 Obesity due to excess calories Osteomyelitis Right lumbar radiculopathy Type 2 diabetes mellitus with hyperglycemia, with long-term current use of insulin Type 2 diabetes mellitus with polyneuropathy Surgical History H/O colonoscopy Hx of tonsillectomy Hx of appendectomy Family History Father No problems noted. 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 No ecchymosis, erythema, or joint effusion. No tenderness to palpation along the medial or lateral joint lines. Full knee extension and flexion. Crepitus is felt with ROM. NVI. Office Procedures Joint Injection/Aspiration Joint Injection/Aspiration Primary Site: right knee Prep: site was prepped using aseptic technique, ethochloride spray was applied and injection warnings given Injected: 40 mg of, DepoMedrol, with 8 mL of (2% plain lido ) and in the joint Approach Used: anterolateral Procedure: The patient tolerated the procedure well, but had some pain with the injection and there was some relief with the local anesthesia Coding 02535 - Large joint Procedure code (CPT) selection complete Assessment & Plan Assessment & Plan (1) Osteoarthritis of right knee: Code(s): M17.11 - Unilateral primary osteoarthritis, right knee Category: Medical (2) Osteoarthritis of left knee: Code(s): M17.12 - Unilateral primary osteoarthritis, left knee Category: Medical (3) Diabetes mellitus: Code(s): E11.9 - Type 2 diabetes mellitus without complications Category: Medical Plan Mr. Cade Whaley is a 63-year-old male, who presents in the office today, as a new patient, for an evaluation of the right knee pain status post a fall. The patient was referred by [facility] for further evaluation of the right ankle and knee pain. MRI of the right lower extremity was obtained. While in the office today, the patient reports his right knee pain has returned. He mentions pain in the bilateral knees; however, the right knee is worse than the left knee. The patient has a medical history of diabetes mellitus and chronic kidney disease. The patient was offered a cortisone injection in the right knee with 40 mg of Depo-Medrol. The patient was explained the risks, benefits, and alternatives to receiving this injection. After receiving consent for the injection, the patient had the procedure done while in the office today. The patient tolerated the procedure well with no complication. Due to the patient?s history of diabetes, they were instructed to monitor his blood glucose level. The patient was informed that they could see a rise in their numbers and if the numbers became too high, they were instructed to call their pcp. The patient was also informed that they could have facial flushing as a side effect of the injection, but this will pass. Follow up will be in 2 weeks for a cortisone injection in the left knee, or sooner if needed. X-rays of the bilateral knees, which were obtained while in the office today and were reviewed by me, Tyra Figueroa PA-C, revealed: Osteoarthritis of the bilateral knees MRI of the right lower extremity, obtained on 03/02/24, revealed: 1. Diffuse edema of the gastrocnemius and soleus muscles with fluid extending longitudinally along the fascial plane between the medial gastrocnemius and soleus muscle suggesting partial tearing. No acute osseous abnormality. 2. At the distal most aspect of the image field of view there is at least partial tearing of the Achilles tendon for which a dedicated ankle MRI is recommended. 3. Probable complex tearing of the posterior horn of the medial meniscus of the right knee with moderate medial compartment osteoarthritis. This is also suboptimally evaluated. Orders: Orders XR knee RT 3V Today M25.569 - Pain in unspecified knee XR knee LT 1V Today M25.569 - Pain in unspecified knee Patient Instructions: Scribed by Cristy Campbell, medical screener, for Tyra Figueroa PA-C on 03/24/24 at 10:50 am EST. Coding Level of Care Code New Pt Level 4 (99123) Diagnoses Osteoarthritis of right knee M17.11 Osteoarthritis of left knee M17.12 Diabetes mellitus E11.9 CPT Codes Coding - 46519 Large joint: 02831 - Large joint ([id number])
== END 2024-03-25 10:54 | disposition home or self-care (01) ==
PROVIDERS: PCP Registered Nurse; Visit Provider Physician Assistant
DX: M17.0 Bilateral primary osteoarthritis of knee (principal); W19.XXXA Unspecified fall, initial encounter; E11.9 Type 2 diabetes mellitus without complications
CPT/HCPCS: 20610; 99204

== ENCOUNTER 2024-03-25 09:53 | Outpatient (REF) | payer OTHER, SELFPAY ==
--- NOTE | ~2024-03-25 | XR_ITS ---
EXAMINATIONS: XR KNEE LEFT XR KNEE RIGHT CLINICAL INFORMATION: Knee pain. COMPARISON: February 10, 2019. TECHNIQUES: One view of the left knee. Three views of the right knee FINDINGS: Right: Examination demonstrates moderate to severe tricompartmental degenerative change predominantly involving the medial and patellofemoral compartments, with joint space narrowing, sclerosis, and osteophyte formation. No fracture or dislocation is seen. No lytic or sclerotic bony lesion is identified. No periosteal reaction is noted. No suprapatellar effusion is seen. Mild arterial calcification. Left: The patellofemoral compartment is not well evaluated on this frontal view. Examination demonstrates moderate to severe degenerative change predominantly involving the medial compartment, with joint space narrowing, sclerosis, and osteophyte formation. No fracture or dislocation is seen. No lytic or sclerotic bony lesion is identified. No periosteal reaction is noted. Mild arterial calcification. XR/XR knee LT 1V IMPRESSION: Osteoarthritis. Electronically signed by: Adria Estes MD 05/11/2024 01:46 PM EST
--- NOTE | ~2024-03-25 | XR_ITS ---
EXAMINATIONS: XR KNEE LEFT XR KNEE RIGHT CLINICAL INFORMATION: Knee pain. COMPARISON: February 10, 2019. TECHNIQUES: One view of the left knee. Three views of the right knee FINDINGS: Right: Examination demonstrates moderate to severe tricompartmental degenerative change predominantly involving the medial and patellofemoral compartments, with joint space narrowing, sclerosis, and osteophyte formation. No fracture or dislocation is seen. No lytic or sclerotic bony lesion is identified. No periosteal reaction is noted. No suprapatellar effusion is seen. Mild arterial calcification. Left: The patellofemoral compartment is not well evaluated on this frontal view. Examination demonstrates moderate to severe degenerative change predominantly involving the medial compartment, with joint space narrowing, sclerosis, and osteophyte formation. No fracture or dislocation is seen. No lytic or sclerotic bony lesion is identified. No periosteal reaction is noted. Mild arterial calcification. XR/XR knee RT 3V IMPRESSION: Osteoarthritis. Electronically signed by: Adria Estes MD 05/11/2024 01:46 PM EST
== END 2024-03-25 09:54 | disposition home or self-care (01) ==
LOC: HO.HOSX 09:53
PROVIDERS: PCP Registered Nurse; Visit Provider Physician Assistant
DX: M17.0 Bilateral primary osteoarthritis of knee (principal); E11.9 Type 2 diabetes mellitus without complications
CPT/HCPCS: 20610; 73560; 73562; 99202; J1010; J2003

== ENCOUNTER 2024-04-08 09:02 | Outpatient (AMB) | payer OTHER, SELFPAY ==
--- NOTE | 2024-04-08 09:16 | MHC.OFFVIS ---
Intake Visit Reasons: Inj-Left knee injection Intake Note: Brandt is a 63 year old male who presents today for a injection for his left knee, last injection was on his right knee 03/25/24. Patient reports his last injection in his right knee is giving him relief. Allergies No Known Allergies [No Known Allergies*] Allergy (Verified 04/08/24 09:25) HPI HPI Inj-Left knee injection: Details: 63-year-old male who presents in the office today for a follow-up of left knee pain. I last saw the patient in the office on 03/25/24 when presented for right knee pain. He was given a cortisone injection in the right knee. While in the office today, the patient reports his last cortisone injection in the right knee is providing him with relief. He is interested in receiving a cortisone injection in his left knee today. The patient has a medical history of diabetes mellitus and chronic kidney disease. [facility] Medical History Arthritis of both knees Balanitis DM2 (diabetes mellitus, type 2) Essential hypertension Hyperlipidemia LDL goal <100 Obesity due to excess calories Osteomyelitis Right lumbar radiculopathy Type 2 diabetes mellitus with hyperglycemia, with long-term current use of insulin Type 2 diabetes mellitus with polyneuropathy Surgical History H/O colonoscopy Hx of tonsillectomy Hx of appendectomy Family History Father No problems noted. 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 No ecchymosis, erythema, or joint effusion. No tenderness to palpation along the medial or lateral joint lines. Full knee extension and flexion. Crepitus is felt with ROM. NVI. Office Procedures AMB Joint Injection/Aspiration Joint Injection/Aspiration Primary Site: left knee Prep: site was prepped using aseptic technique, ethochloride spray was applied and injection warnings given Injected: 40 mg of, DepoMedrol, with 8 mL of (2% plain lido ) and in the joint Approach Used: anterolateral Procedure: The patient tolerated the procedure well, but had some pain with the injection and there was some relief with the local anesthesia Coding 93934 - Large joint Procedure code (CPT) selection complete Assessment & Plan Assessment & Plan (1) Osteoarthritis of right knee: Code(s): M17.11 - Unilateral primary osteoarthritis, right knee Category: Medical (2) Osteoarthritis of left knee: Code(s): M17.12 - Unilateral primary osteoarthritis, left knee Category: Medical (3) Diabetes mellitus: Code(s): E11.9 - Type 2 diabetes mellitus without complications Category: Medical Plan Mr. Cade Whaley is a 63-year-old male who presents in the office today for a follow-up of left knee pain. I last saw the patient in the office on 03/25/24 when presented for right knee pain. He was given a cortisone injection in the right knee. While in the office today, the patient reports his last cortisone injection in the right knee is providing him with relief. He is interested in receiving a cortisone injection in his left knee today. The patient has a medical history of diabetes mellitus and chronic kidney disease. The patient was offered a cortisone injection in the left knee with 40 mg of Depo-Medrol. The patient was explained the risks, benefits, and alternatives to receiving this injection. After receiving consent for the injection, the patient had the procedure done while in the office today. The patient tolerated the procedure well with no complication. Due to the patient?s history of diabetes, they were instructed to monitor his blood glucose level. The patient was informed that they could see a rise in their numbers and if the numbers became too high, they were instructed to call their pcp. The patient was also informed that they could have facial flushing as a side effect of the injection, but this will pass. Follow up will be PRN, or sooner if needed. Patient Instructions: Scribed by Cristy Campbell, medical equipment repair technician, for Tyra Figueroa PA-C on 04/08/24 at 9:39 am EST. Coding Level of Care Code Est Pt Level 4 (72395) Diagnoses Osteoarthritis of right knee M17.11 Osteoarthritis of left knee M17.12 Diabetes mellitus E11.9 CPT Codes Coding - 54863 Large joint: 14251 - Large joint ([id number])
== END 2024-04-08 09:41 | disposition home or self-care (01) ==
PROVIDERS: PCP Registered Nurse; Visit Provider Physician Assistant
DX: M17.0 Bilateral primary osteoarthritis of knee (principal); E11.9 Type 2 diabetes mellitus without complications
CPT/HCPCS: 20610; 99214

== ENCOUNTER → 2024-04-08 09:02 | Outpatient (BNVA) | payer OTHER, SELFPAY | PROVIDERS: PCP Registered Nurse; Visit Provider Physician Assistant | DX: M17.0 Bilateral primary osteoarthritis of knee (principal); E11.9 Type 2 diabetes mellitus without complications | CPT/HCPCS: 20610; 99212; J1010; J2003 ==

== ENCOUNTER 2024-05-01 19:16 | Outpatient (REF) | payer OTHER, SELFPAY ==
--- NOTE | ~2024-05-01 | MR_ITS ---
EXAMINATION: MR KNEE WITHOUT CONTRAST, RIGHT CLINICAL INFORMATION: Chronic arthritis. Pain. COMPARISON: Most recent right knee radiograph dated 03/25/2024 and lower leg MRI dated 03/02/2024. TECHNIQUE: MRI of the knee without contrast was performed using routine sequences on a high-field scanner. FINDINGS: MENISCI: Medial Meniscus: Complete versus near-complete tear of the posterior horn and root measuring up to 2.3 cm in ML dimension with a few thin, irregular peripheral meniscal fibers partially intact. The meniscal body is medially extruded with diffuse complex tearing and an inferiorly displaced meniscal flap. Lateral Meniscus: Degenerative intrasubstance signal within the anterior horn and root with possible femoral articular surface fraying. Attenuation complex tearing of the posterior root. LIGAMENTS: Cruciate: Absence of the anterior cruciate ligament consistent with a remote, complete tear and ligament resorption. Tnhghhga-vc-urakuf degenerative signal throughout the posterior cruciate ligament. Collateral: Edema and heterogeneity involving the proximal aspect of the medial collateral and fibular collateral ligaments, consistent with grade 1 sprain/partial tears. EXTENSOR MECHANISM: Superior patella and adjacent heights. Mild proximal patellar tendinosis. No tendon tear. Normal patellofemoral alignment. ARTICULAR CARTILAGE/BONE: Patellofemoral Compartment: The patellofemoral articular cartilage signal heterogeneity and surface irregularity with areas of oqbz-goga-hfeyetumj loss at the lateral trochlea. Small marginal osteophytes. Medial Compartment: Diffuse full-thickness weightbearing articular cartilage loss with mild bony remodeling as well as subchondral marrow edema and subchondral cystic change. Prominent marginal osteophytes. Lateral Compartment: Diffuse articular cartilage thinning with full-thickness loss of the lateral tibial spine. Areas of full-thickness fissuring of the weightbearing lateral femoral condyle. Moderate marginal osteophytes. JOINT FLUID AND BURSAE: Small joint effusion and small [place]'s cyst. MR/MR knee RT wo con IMPRESSION: 1. Complete versus near-complete tear of the medial meniscus posterior horn and root with a few thin, irregular peripheral meniscal fibers partially intact. Medial extrusion of the meniscal body with diffuse complex tearing and an inferiorly displaced meniscal flap. 2. Degenerative intrasubstance signal within the lateral meniscus anterior horn and root with possible femoral articular surface fraying. Complex tearing of the posterior root. 3. Absence of the anterior cruciate ligament consistent with a remote, complete tear. Kdywybrk-hz-ywdsve degenerative signal throughout the posterior cruciate ligament. 4. Grade 1 sprain/partial tears of the medial and fibular collateral ligaments. 5. Mild proximal patellar tendinosis. 6. Severe medial as well as [id number] patellofemoral and lateral compartment osteoarthritis. Small joint effusion and small Washington's cyst. Electronically signed by: Adeel Davison MD 05/12/2024 02:56 PM [facility] [place]
--- NOTE | ~2024-05-01 | MR_ITS ---
EXAMINATION: MR ANKLE WITHOUT CONTRAST, RIGHT CLINICAL INFORMATION: Right ankle pain. Arthritis. COMPARISON: Most recent right foot radiographs dated 06/09/2022 and MRI dated 01/15/2022. TECHNIQUE: MRI of the ankle was performed using routine sequences on a high-field scanner. FINDINGS: BONE AND ARTICULAR CARTILAGE: No acute fracture or dislocation. Small plantar and dorsal calcaneal spurs. The ankle mortise is maintained. No talar osteochondral lesion. No tarsal coalition. No marrow edema or evidence of acute osseous injury. ACHILLES TENDON: Thickening and heterogeneity of the Achilles tendon, consistent with prominent chronic tendinosis. There is irregular partial tearing through the central aspect of the tendon with linear extension proximally measuring up to 11 cm in craniocaudal dimension. Thin peripheral ligament fibers remain intact. Tearing is located approximately 5.5 cm from the distal tendon insertion. OTHER TENDONS: Intact tendons. Mild diffuse muscle atrophy. LIGAMENTS: Probable remote sprain/partial tear of the anterior talofibular, posterior tibiofibular, and deltoid ligaments. No acute ligament injury. JOINT FLUID AND SOFT TISSUES: Circumferential subcutaneous edema. Heterogeneous subcutaneous focus posteromedially measuring up to 1.5 cm which could represent an evolving soft tissue hematoma. Trace subtalar joint effusion. PLANTAR FASCIA: Intact. SINUS TARSI AND TARSAL TUNNEL: Patent. MR/MR ankle RT wo con IMPRESSION: 1. Prominent chronic Achilles tendinosis with irregular partial tearing through the central aspect of the tendon measuring up to 11 cm in craniocaudal dimension. Thin peripheral ligament fibers remain intact. Tearing is located approximately 5.5 cm from the distal tendon insertion. 2. Probable remote sprain/partial tears of the anterior talofibular, posterior tibiofibular, and deltoid ligaments. No acute ligament injury. 3. Circumferential subcutaneous edema. Heterogeneous subcutaneous focus posteromedially measuring up to 1.5 cm which could represent an evolving soft tissue hematoma. 4. Small plantar and dorsal calcaneal spurs. No acute osseous injury. Electronically signed by: Adeel Davison MD 05/12/2024 02:56 PM [facility] [place] Workstation: [id number]
== END 2024-05-01 19:17 | disposition home or self-care (01) ==
LOC: HO.MRI 19:16
PROVIDERS: PCP Registered Nurse; Visit Provider Registered Nurse
DX: S86.011A Strain of right Achilles tendon, initial encounter (principal); S83.203A Other tear of unspecified meniscus, current injury, right knee, initial encounter
CPT/HCPCS: 73721

== ENCOUNTER 2024-05-17 17:14 | Emergency (ER) | payer OTHER, SELFPAY ==
--- NOTE | ~2024-05-17 | XR_ITS ---
EXAMINATION: XR FOOT, LEFT CLINICAL INFORMATION: g toe infection ?osteo COMPARISON: None available. TECHNIQUE: AP, lateral, and oblique views of the left foot. FINDINGS: Question soft tissue defect at the distal, medial aspect of the left first toe. Associated soft tissue swelling. No obvious subcutaneous air identified. No fracture identified. No lytic or sclerotic bony lesion identified. No periosteal reaction appreciated. Plantar and Achilles calcaneal spurs. Alignment is anatomic. Joint spaces appear maintained. Small vessel arterial calcification suggesting diabetic and/or renal calcific atherosclerosis. XR/XR foot LT min 3V IMPRESSION: No plain film evidence of osteomyelitis. Electronically signed by: Adria Estes MD 05/18/2024 07:05 AM [facility]
[2024-05-17 17:23] VITALS: BP 151/86; PULSE 52; RESP 18; TEMP 38.8; O2SAT 95; BMI 35.7
--- NOTE | 2024-05-17 17:24 | ED.GENADULT ---
HPI - General Adult General Chief complaint: Urogenital-Male Stated complaint: shivering/constant urination Time Seen by Provider: 05/17/24 22:45 Source: patient Mode of arrival: ambulatory Limitations: no limitations History of Present Illness ED Provider: HPI narrative: Patient has been not feeling well for last 3 days with episodes of chills and been urinating a lot , diabetic headache callus on the left great toe which he picked 5 days ago comes with a redness of the left great toe noted to have temperature of 102 degrees on arrival Related Data Home Medications ?Medication ?Instructions ?Recorded ?Confirmed aspirin 81 mg tablet,delayed 81 mg PO DAILY 03/29/20 05/18/24 release (Adult Aspirin Regimen) gabapentin 800 mg tablet 800 mg PO BID 03/29/20 05/18/24 metformin 1,000 mg tablet 1,000 mg PO BID 03/29/20 05/18/24 metoprolol succinate 200 mg 200 mg PO DAILY 03/29/20 05/18/24 tablet,extended release 24 hr alcohol swabs (Alcohol Prep Pads) pad topical DAILY 08/29/21 05/18/24 blood sugar diagnostic (FreeStyle #10 ea 08/29/21 05/18/24 Lite Strips) lancets 33 gauge (TRUEplus Lancets) #100 ea 08/29/21 05/18/24 latanoprost 0.005 % eye drops 1 drp ophthalmic (eye) BEDTIME 08/29/21 05/18/24 melatonin 5 mg tablet 10 mg PO BEDTIME PRN insomnia 08/29/21 05/18/24 pantoprazole 20 mg tablet,delayed 20 mg PO DAILY 08/29/21 05/18/24 release amlodipine 10 mg tablet 10 mg PO DAILY 02/25/24 05/18/24 dulaglutide 4.5 mg/0.5 mL mg subcut 02/25/24 05/18/24 subcutaneous pen injector (Trulicity) pravastatin 40 mg tablet 40 mg PO DAILY 02/25/24 05/18/24 Previous Rx's ?Medication ?Instructions ?Recorded diphenoxylate-atropine 2.5 1 tab PO DAILY PRN diarrhea #4 tabs 01/21/21 mg-0.025 mg tablet (Lomotil) clotrimazole-betamethasone 1 1 appl topical BID 4 weeks #45 08/29/21 %-0.05 % topical cream grams polyethylene glycol 3350 17 238 g PO ONCE laxative effect 1 10/20/23 gram/dose oral powder (Miralax) day #238 grams cephalexin 500 mg capsule 500 mg PO QID 10 days #40 caps 05/18/24 doxycycline hyclate 100 mg tablet 100 mg PO BID #20 tabs 05/18/24 hydrochlorothiazide 25 mg tablet 25 mg PO DAILY #90 tabs 05/18/24 Allergies Allergy/AdvReac Type Severity Reaction Status Date / Time No Known Allergies Allergy Verified 05/18/24 13:35 [No Known Allergies*] Review of Systems Review of Systems: Yes all other systems are reviewed and are negative [facility] Past Medical History Medical History Osteomyelitis DM2 (diabetes mellitus, type 2) Essential hypertension Right lumbar radiculopathy Arthritis of both knees Balanitis Type 2 diabetes mellitus with polyneuropathy Hyperlipidemia LDL goal <100 Obesity due to excess calories Type 2 diabetes mellitus with hyperglycemia, with long-term current use of insulin Surgical History H/O colonoscopy Hx of tonsillectomy Hx of appendectomy Family History Family History Father No problems noted. 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 Oriented X3. No acute distress. Eyes: PERRLA, No Nystagmus ENT: Pharynx normal. Oral Mucosa moist Neck: Normal inspection. Neck supple. CVS: Normal heart rate and rhythm. Pulses normal. Respiratory: No respiratory distress. Equal air entry bilateral, no wheezing/rales/rhonchi Abdomen: Soft and nontender. Bowel sounds are present, no mass palpable, no CVA tenderness Skin: Skin warm and dry. Normal skin color. Normal skin turgor. Extremities: No lower extremity edema. No calf tenderness left great toe erythematous with callus at the base Neuro: Oriented X 3. No motor deficit. No sensory deficit.No cerebellar signs , cranial nerves II-XII intact Course Course Course Narrative: RME, this is a rapid medical exam performed by Barrett Urbina please refer to primary provider for complete H&P- 63-year-old male presents for evaluation of lower abdominal pain and frequent urination. He also complains of chills. Symptoms started a couple of days ago. He has a history of diabetes, chronic kidney disease CAD hypertension, hyperlipidemia, arthritis. He is febrile in triage to 102. Plan for labs including blood cultures, UA Medications Administered Discontinued Medications Generic Name Dose Route Start Last Admin Trade Name Liborioq PRN Reason Stop Dose Admin Acetaminophen 650 mg 05/17/24 22:43 05/17/24 22:49 Acetaminophen 325 Mg Tablet PO 05/17/24 22:44 650 mg ONCE ONE Administration Sodium Chloride 1,000 mls @ 999 mls/hr 05/17/24 23:32 05/17/24 23:53 Ns IV 05/18/24 00:32 999 mls/hr .Q1H1M ONE Administration Vancomycin HCl 2,000 mg in 500 mls @ 250 mls/hr 05/17/24 23:33 05/17/24 23:53 Vancomycin/Ns IV 05/18/24 01:32 250 mls/hr ONCE ONE Administration Medical Decision Making Medical Decision Making [facility] Narrative: Patient with callus of the left great toe with cellulitis with chills and fever no signs of osteomyelitis patient has received IV vancomycin in the ER and discharged on doxy and cephalexin advised to follow with PCP or report to the ER if condition gets worse Lab Data [facility] Lab Attestation statement: I reviewed the patient's lab results. 05/17/24 18:08 05/17/24 18:08 Labs: Lab Results 05/17/24 05/17/24 05/17/24 Range/Units 18:07 18:08 22:47 WBC 12.3 H (4.8-10.8) X10*3/uL RBC 5.17 (4.60-5.80) X10*6/uL Hgb 14.7 (14.0-18.0) g/dl Hct 42.9 (42.0-52.0) % MCV 83.0 (80.0-98.0) fL MCH 28.4 (27.0-33.0) pg MCHC 34.3 (31.0-36.0) g/dl RDW 13.2 (11.0-16.0) % Plt Count 249 (160-400) X10*3/uL MPV 10.1 (9.4-12.4) fL Immature Gran % (Auto) 0.4 (0.0-0.4) % Neut % (Auto) 78.3 H (45-73) % Lymph % (Auto) 10.7 L (20-40) % [place] % (Auto) 9.6 (2-11) % Eos % (Auto) 0.7 (0-4) % Baso % (Auto) 0.3 (0-2) % Lymph # (Auto) 1.3 (1.2-4.9) X10*3/uL [place] # (Auto) 1.2 (0.1-1.2) X10*3/uL Eos # (Auto) 0.1 (0.0-0.4) X10*3/uL Baso # (Auto) 0.0 (0.0-0.2) X10*3/uL Abs Immat Gran (auto) 0.05 H (0.00-0.03) X10*3/uL Absolute Neuts (auto) 9.6 H (2.0-8.3) x10*3/uL Absolute Nucleated RBC 0.000 (0.0-0.012) X10*3/uL Nucleated RBC % (auto) 0.0 (0.0-0.2) /100WBC Sodium 136 (135-145) mmol/L Potassium 3.5 D (3.3-5.1) mmol/L Chloride 98 (96-108) mmol/L Carbon Dioxide 29 (22-29) mmol/L Anion Gap 13 (12-20) BUN 24 H (9-16) mg/dL Creatinine 1.62 H (0.5-1.4) mg/dL Estim Creat Clear Calc 57.2 Estimated GFR 43 POC Glucose 174 H (60-115) mg/dL Random Glucose 216 H (60-115) mg/dL Lactic Acid 1.7 (0.5-2.0) mmol/L Calcium 9.7 (8.4-10.2) mg/dL Total Bilirubin 0.7 (0.0-1.0) mg/dL AST 23 (5-37) U/L ALT 21 (0-40) U/L Alkaline Phosphatase 70 (39-117) U/L Total Protein 9.0 H (6.5-8.0) g/dL Albumin 4.1 (3.5-5.0) g/dL Lipase 38 (8-78) U/L Urine Color Yellow Urine Appearance Clear Urine pH 6.0 (5.0-9.0) Ur Specific [place] 1.025 (1.005-1.025) Urine Protein Trace (Neg-Trace) mg/dL Urine Glucose (UA) >=1000 H (Negative) mg/dL Urine Ketones Negative (Negative) mg/dL Urine Blood Moderate (2+) H (Negative) Urine Nitrite Negative (Negative) Ur Leukocyte Esterase Negative (Negative) Urine RBC 11-20 H (0-2) /HPF Urine WBC 0-5 (0-5) /HPF Ur Squamous Epith Cells 0-2 (0-2) /HPF Urine Bacteria None Seen (None Seen) Hyaline Casts 0-2 (0-2) /LPF Influenza Type A (PCR) NEGATIVE (Negative) Influenza Type B (PCR) NEGATIVE (Negative) RSV RNA Qual (PCR) NEGATIVE (Negative) SARS-CoV-2 RNA (RT-PCR) NEGATIVE (Negative) Independent Interpretation I performed an independent interpretation of an: Plain X-Ray Interpretation: No bony erosion Radiology Impression Discussion of test interpretation with radiology: I have reviewed the radiologist's reading. Discharge Plan Discharge Clinical Impression: Cellulitis of great toe of left foot Patient Disposition: Home, Self-Care Instructions: Cellulitis (ED) Additional Instructions: Local care as advised Take antibiotic as prescribed Report to the ER if worsening of the swelling or redness Follow with your PCP Prescriptions: New cephalexin 500 mg capsule 500 mg PO QID 10 Days Qty: 40 0RF doxycycline hyclate 100 mg tablet 100 mg PO BID Qty: 20 0RF No Action diphenoxylate-atropine [Lomotil] 2.5-0.025 mg tablet 1 tab PO DAILY PRN (Reason: diarrhea) Qty: 4 0RF metformin 1,000 mg tablet 1,000 mg PO BID gabapentin 800 mg tablet 800 mg PO BID metoprolol succinate 200 mg tablet extended release 24 hr 200 mg PO DAILY aspirin [Adult Aspirin Regimen] 81 mg tablet,delayed release (DR/EC) 81 mg PO DAILY melatonin 5 mg tablet 10 mg PO BEDTIME PRN (Reason: insomnia) pantoprazole 20 mg tablet,delayed release (DR/EC) 20 mg PO DAILY alcohol swabs [Alcohol Prep Pads] Pads, Medicated topical DAILY (DME) FreeStyle Lite Strips Strip See Rx Instructions Not Applicable DAILY Qty: 10 Rx Instructions: As directed latanoprost 0.005 % drops 1 drp ophthalmic (eye) BEDTIME (DME) lancets [TRUEplus Lancets] 33 gauge misc See Rx Instructions Not Applicable DAILY Qty: 100 Rx Instructions: As directed clotrimazole-betamethasone 1-0.05 % cream 1 appl topical BID 28 Days Qty: 45 0RF Rx Instructions: Apply thin coat 2 times per day hydrochlorothiazide 25 mg tablet 25 mg PO DAILY Qty: 90 1RF polyethylene glycol 3350 [Miralax] 17 gram/dose powder 238 g PO ONCE 1 Days Qty: 238 0RF Rx Instructions: Take as directed by mouth the day before your procedure. amlodipine 10 mg tablet 10 mg PO DAILY Trulicity 4.5 mg/0.5 mL pen injector subcut pravastatin 40 mg tablet 40 mg PO DAILY Interventions: ED Discharge Assessment Last Done: 05/18/24 02:32 Discharge Date/Time: 05/18/24 02:43 Print Language: [place]
[2024-05-17 18:20] LABS: MANUAL DIFF FLAG NO
[2024-05-17 18:22] LABS: Basophils Percent Auto 0.3 % (0-2); Eosinophils Absolute Auto 0.1 X10*3/uL (0.0-0.4); Eosinophils Percent Auto 0.7 % (0-4); Hematocrit 42.9 % (42.0-52.0); Hemoglobin 14.7 g/dl (14.0-18.0); Imm Gran Abs Auto 0.05 X10*3/uL (0.00-0.03); Imm Gran Pct Auto 0.4 % (0.0-0.4); Lymphocytes Absolute Auto 1.3 X10*3/uL (1.2-4.9); Lymphocytes Percent Auto 10.7 % (20-40); Mean Corpuscular HGB Conc 34.3 g/dl (31.0-36.0); Mean Corpuscular Hemoglobin 28.4 pg (27.0-33.0); Mean Platelet Volume 10.1 fL (9.4-12.4); Monocytes Absolute Auto 1.2 X10*3/uL (0.1-1.2); Monocytes Percent Auto 9.6 % (2-11); Neutrophils Absolute Auto 9.6 x10*3/uL (2.0-8.3); Neutrophils Percent Auto 78.3 % (45-73); Platelet Count 249 X10*3/uL (160-400); Red Blood Count 5.17 X10*6/uL (4.60-5.80); Red Cell Distribution Width 13.2 % (11.0-16.0); White Blood Count 12.3 X10*3/uL (4.8-10.8)
[2024-05-17 18:32] LABS: Appearance Urine Clear; Color Urine Yellow; Glucose Urine UA >=1000 mg/dL (Negative); Leukocyte Esterase Urine Negative (Negative); Nitrite Urine Negative (Negative); Specific Gravity - Urine 1.025 (1.005-1.025); UMIC TRIGGER UACC YES; Urine Blood Moderate (2+) (Negative); Urine Ketones Negative (Negative); Urine Protein Trace mg/dL (Neg-Trace)
[2024-05-17 18:37] LABS: Bacteria Urine None Seen (None Seen); Hyaline Casts Urine 0-2 /LPF (0-2); Squamous Epithelial Cell Urine 0-2 /HPF (0-2); WBC Urine 0-5 /HPF (0-5)
[2024-05-17 18:47] LABS: Lactic Acid 1.7 mmol/L (0.5-2.0)
[2024-05-17 18:48] LABS: Alanine Aminotransferase 21 U/L (0-40); Albumin Level 4.1 g/dL (3.5-5.0); Alkaline Phosphatase 70 U/L (39-117); Anion Gap 13 (12-20); Aspartate Amino Transferase 23 U/L (5-37); Bilirubin Total 0.7 mg/dL (0.0-1.0); Blood Urea Nitrogen 24 mg/dL (9-16); Calcium 9.7 mg/dL (8.4-10.2); Carbon Dioxide 29 mmol/L (22-29); Chloride 98 mmol/L (96-108); Creatinine Clr Calc Pharmacy 57.2; Estimated Glomerular Filt Rate 43; Glucose Random 216 mg/dL (60-115); Lipase 38 U/L (8-78); Potassium 3.5 mmol/L (3.3-5.1); Sodium 136 mmol/L (135-145)
[2024-05-17 19:09] LABS: Influenza A PCR NEGATIVE (Negative); Influenza B PCR NEGATIVE (Negative); Resp Syncy Virus RNA Qual PCR NEGATIVE (Negative); SARS COV2 PCR INHOUSE NEGATIVE (Negative)
[2024-05-17 22:34] VITALS: BP 153/86; PULSE 99; RESP 20; TEMP 38.2; O2SAT 100
[2024-05-17] MEDS: Acetaminophen 325 MG TABLET 650 MG PO (22:49)
[2024-05-17 22:51] LABS: Glucose, Whole Blood 174 mg/dL (60-115)
[2024-05-17 23:53] VITALS: TEMP 37.3
[2024-05-17] MEDS: 0.9 % Sodium Chloride 1,000 ML 999 ML IV (23:53)
[2024-05-17] MEDS: vancomycin/NS 2,000 MG/500 ML PLAST..BAG 250 MG IV (23:53)
--- NOTE | 2024-05-17 23:56 | PC.NURSE ---
IV line placed in L forerm. IV abx and fluids infusing. Plan of care ongoing
[2024-05-18 02:05] VITALS: BP 136/53; PULSE 79; RESP 16; TEMP 37.2; O2SAT 97
[2024-05-18 02:32] VITALS: BP 136/53; PULSE 79; RESP 16; TEMP 37.2; O2SAT 97
== END 2024-05-18 02:43 | disposition home or self-care (01) ==
PROVIDERS: Physician Assistant; Emergency Provider Internal Medicine; PCP Registered Nurse
DX: L03.032 Cellulitis of left toe (principal); M79.672 Pain in left foot; Z03.818 Encounter for observation for suspected exposure to other biological agents ruled out; Z79.899 Other long term (current) drug therapy
CPT/HCPCS: 0241U; 36415; 73630; 80053; 81001; 82947; 83605; 83690; 85025; 87040; 96374; 99285; J3370

== ENCOUNTER 2024-05-18 13:28 | Outpatient (AMB) | payer OTHER, SELFPAY ==
[2024-05-18 13:32] VITALS: BP 124/62; PULSE 91; O2SAT 96; BMI 35.6
--- NOTE | 2024-05-18 13:32 | HO.NEPHOV ---
Vital Signs 05/18/24 13:32 Height 5 ft 10 in Weight 248 lb BMI 35.6 BP 124/62 Blood Pressure Location Lt brachial Position Sitting Pulse 91 Pulse Source Pulse Oximeter Pulse Oximetry (%) 96 Oxygen Delivery Method Room Air Intake Visit Reasons: Elevated serum creatinine/missed 04/20/24 appt/Con Director Nursing Service Required: Yes Director Nursing Service Name: Adore [id number] Accompanied by: Self / Same As Patient Allergies No Known Allergies [No Known Allergies*] Allergy (Verified 05/18/24 13:35) Medication List - Last Reconciled 05/18/24 by Keith Willis MD alcohol swabs (Alcohol Prep Pads) pad topical DAILY amlodipine 10 mg PO DAILY aspirin (Adult Aspirin Regimen) 81 mg PO DAILY blood sugar diagnostic (FreeStyle Lite Strips) As directed cephalexin 500 mg PO QID 10 days clotrimazole-betamethasone 1-0.05 % 1 appl topical BID 4 weeks diphenoxylate-atropine 2.5-0.025 mg (Lomotil) 1 tab PO DAILY PRN doxycycline hyclate 100 mg PO BID dulaglutide (Trulicity) mg subcut gabapentin 800 mg PO BID hydrochlorothiazide 50 mg PO DAILY lancets (TRUEplus Lancets) As directed latanoprost 0.005% 1 drp ophthalmic (eye) BEDTIME melatonin 10 mg PO BEDTIME PRN metformin 1,000 mg PO BID metoprolol succinate ER 200 mg PO DAILY pantoprazole 20 mg PO DAILY polyethylene glycol 3350 (Miralax) 238 grams PO ONCE 1 day pravastatin 40 mg PO DAILY HPI Comments Details: Brandt is a pleasant 62-year-old man with a history of longstanding diabetes mellitus and hypertension. He has been referred for evaluation of chronic kidney disease. Over the past 2 years there has been a gradual increase in serum creatinine from 1.4 up to 1.8 mg/dL. As of 01/19/2024 serum creatinine was 1.8 mg/dL. He was on lisinopril 40 mg along with amlodipine and hydrochlorothiazide 40 mg a day. Recently lisinopril has been placed on hold. He has a history of taking NSAIDs for almost a year but he had stopped NSAIDs about 4 years ago. Ongoing medical problems also includes obstructive sleep apnea history of Jewell's palsy, diabetic polyneuropathy obesity and non alcoholic steatohepatitis. He has a history of smoking he quit smoking in 2022. No history of any alcohol abuse or drug abuse. He complains of increased urinary frequency. No hesitancy no hematuria. No shortness of breath. No cough. No nausea or vomiting. No chest pain. No rash no fever he has chronic leg edema. 05/18/24 Recent cellulitis On Doxy c/o increased urination PFS Medical History Osteomyelitis DM2 (diabetes mellitus, type 2) Essential hypertension Right lumbar radiculopathy Arthritis of both knees Balanitis Type 2 diabetes mellitus with polyneuropathy Hyperlipidemia LDL goal <100 Obesity due to excess calories Type 2 diabetes mellitus with hyperglycemia, with long-term current use of insulin Surgical History H/O colonoscopy Hx of tonsillectomy Hx of appendectomy Family History Father No problems noted. 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 The kidney is normal in size, contour, and echogenicity. Renal cortical thickness is normal. No renal calculi or hydronephrosis. Redemonstration of right-sided renal cysts, not significantly changed when compared to the prior MRI. Findings are not clinically significant and no dedicated follow-up imaging is recommended. LEFT KIDNEY: 11.7 x 6.0 x 4.6 cm (SAG x AP x TRV). The kidney is normal in size, contour, and echogenicity. Renal cortical thickness is normal. No calculi or focal parenchymal lesions. No hydronephrosis. Nephrology Results: Hgb 14.7 g/dl (14.0-18.0) 05/17/24 WBC 12.3 X10*3/uL (4.8-10.8) H 05/17/24 Plt Count 249 X10*3/uL (160-400) 05/17/24 Sodium 136 mmol/L (135-145) 05/17/24 Potassium 3.5 mmol/L (3.3-5.1) 05/17/24 Chloride 98 mmol/L (96-108) 05/17/24 Carbon Dioxide 29 mmol/L (22-29) 05/17/24 BUN 24 mg/dL (9-16) H 05/17/24 Creatinine 1.62 mg/dL (0.5-1.4) H 05/17/24 Calcium 9.7 mg/dL (8.4-10.2) 05/17/24 PTH Intact 77.7 pg/mL (8.7-77.1) H 02/29/24 Urine Protein Trace mg/dL (Neg-Trace) 05/17/24 Urine Creatinine 81.56 mg/dL 02/29/24 Renal US 03/24/24 Assessment & Plan Assessment & Plan (1) CKD (chronic kidney disease): Code(s): N18.9 - Chronic kidney disease, unspecified Category: Medical (2) Essential hypertension: Code(s): I10 - Essential (primary) hypertension Category: Medical (3) DM2 (diabetes mellitus, type 2): Code(s): E11.9 - Type 2 diabetes mellitus without complications Category: Medical Qualifiers: Diabetes mellitus complication status: with hyperglycemia Diabetes mellitus longterm insulin use: without longterm use Qualified Code(s): E11.65 - Type 2 diabetes mellitus with hyperglycemia Plan 58-year-old man with a history of longstanding diabetes mellitus hypertension with obesity and sleep apnea has chronic kidney disease. Recent serum creatinine was 1.8 mg/dL. Over the last 3 years has been a gradual increase serum creatinine from 1.4-1.8. He probably has underlying chronic kidney disease due to hypertensive diabetic kidney disease. The recent serum creatinine is suggestive of natural progression. BAsed on USG, NO obstructive uropathy. Recent urine sediments were benign and therefore interstitial nephritis or glomerular nephritis seem unlikely at this time. NO improvement in creatinine after holding the lisinopril Recommendation Optimize blood pressure. Maintain blood pressure less than 130/80. Stay on low-sodium diet. Encouraged weight loss. Continue to hold Lisinopril Decrease HCTZ to 25 mg Based on BP, would restart lower dose GISELA-i in 4 - 6 weeks Continue to avoid nephrotoxic agents including NSAIDs. 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
== END 2024-05-18 15:01 | disposition home or self-care (01) ==
LOC: HO.HKAM 13:28
PROVIDERS: PCP Registered Nurse; Visit Provider Internal Medicine Hypertension Specialist
DX: I12.9 Hypertensive chronic kidney disease with stage 1 through stage 4 chronic kidney disease, or unspecified chronic kidney disease (principal); E11.22 Type 2 diabetes mellitus with diabetic chronic kidney disease; N18.9 Chronic kidney disease, unspecified; E11.65 Type 2 diabetes mellitus with hyperglycemia
CPT/HCPCS: 99214

== ENCOUNTER → 2024-05-18 13:28 | Outpatient (BNVA) | payer OTHER, SELFPAY | PROVIDERS: PCP Registered Nurse; Visit Provider Internal Medicine Hypertension Specialist | DX: E11.22 Type 2 diabetes mellitus with diabetic chronic kidney disease (principal); I12.9 Hypertensive chronic kidney disease with stage 1 through stage 4 chronic kidney disease, or unspecified chronic kidney disease; N18.9 Chronic kidney disease, unspecified; E11.65 Type 2 diabetes mellitus with hyperglycemia | CPT/HCPCS: 99212 ==

== ENCOUNTER 2024-06-15 13:13 | Outpatient (AMB) | payer OTHER, SELFPAY ==
[2024-06-15 13:16] VITALS: BP 122/68; PULSE 72; O2SAT 97; BMI 35.3
--- NOTE | 2024-06-15 13:16 | HO.NEPHOV_ITS ---
Vital Signs 06/15/24 13:16 Height 5 ft 10 in Weight 246 lb BMI 35.3 BP 122/68 Blood Pressure Location Lt brachial Position Sitting Pulse 72 Pulse Source Pulse Oximeter Pulse Oximetry (%) 97 Oxygen Delivery Method Room Air Intake Visit Reasons: 4 wk fu-Conf Planning Consultant Required: No Accompanied by: Self / Same As Patient Allergies No Known Allergies [No Known Allergies*] Allergy (Verified 06/15/24 13:20) Medication List - Last Reconciled 06/15/24 by Keith Willis MD alcohol swabs (Alcohol Prep Pads) pad topical DAILY amlodipine 10 mg PO DAILY aspirin (Adult Aspirin Regimen) 81 mg PO DAILY blood sugar diagnostic (FreeStyle Lite Strips) As directed clotrimazole-betamethasone 1-0.05 % 1 appl topical BID 4 weeks diphenoxylate-atropine 2.5-0.025 mg (Lomotil) 1 tab PO DAILY PRN dulaglutide (Trulicity) mg subcut empagliflozin (Jardiance) 25 mg PO DAILY gabapentin 800 mg PO BID lancets (TRUEplus Lancets) As directed latanoprost 0.005% 1 drp ophthalmic (eye) BEDTIME melatonin 10 mg PO BEDTIME PRN metformin 1,000 mg PO BID metoprolol succinate ER 200 mg PO DAILY pantoprazole 20 mg PO DAILY polyethylene glycol 3350 (Miralax) 238 grams PO ONCE 1 day pravastatin 40 mg PO DAILY HPI Comments Details: Brandt is a pleasant 62-year-old man with a history of longstanding diabetes mellitus and hypertension. He has been referred for evaluation of chronic kidney disease. Over the past 2 years there has been a gradual increase in serum creatinine from 1.4 up to 1.8 mg/dL. As of 01/19/2024 serum creatinine was 1.8 mg/dL. He was on lisinopril 40 mg along with amlodipine and hydrochlorothiazide 40 mg a day. Recently lisinopril has been placed on hold. He has a history of taking NSAIDs for almost a year but he had stopped NSAIDs about 4 years ago. Ongoing medical problems also includes obstructive sleep apnea history of Jewell's palsy, diabetic polyneuropathy obesity and non alcoholic steatohepatitis. He has a history of smoking he quit smoking in 2022. No history of any alcohol abuse or drug abuse. He complains of increased urinary frequency. No hesitancy no hematuria. No shortness of breath. No cough. No nausea or vomiting. No chest pain. No rash no fever he has chronic leg edema. 05/18/24 Recent cellulitis On Doxy c/o increased urination 06/15/24 Doing better Off [facility] Medical History Osteomyelitis DM2 (diabetes mellitus, type 2) Essential hypertension Right lumbar radiculopathy Arthritis of both knees Balanitis Type 2 diabetes mellitus with polyneuropathy Hyperlipidemia LDL goal <100 Obesity due to excess calories Type 2 diabetes mellitus with hyperglycemia, with long-term current use of insulin Surgical History H/O colonoscopy Hx of tonsillectomy Hx of appendectomy Family History Father No problems noted. 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 Lungs entry equal no rales. Heart S1-S2 heard no gallop or rub. Abdomen soft nontender. Neuro alert awake oriented. No asterixis. Extremities no edema. Results Reviewed Nephrology Results: Hgb 14.7 g/dl (14.0-18.0) 05/17/24 WBC 12.3 X10*3/uL (4.8-10.8) H 05/17/24 Plt Count 249 X10*3/uL (160-400) 05/17/24 Sodium 136 mmol/L (135-145) 05/17/24 Potassium 3.5 mmol/L (3.3-5.1) 05/17/24 Chloride 98 mmol/L (96-108) 05/17/24 Carbon Dioxide 29 mmol/L (22-29) 05/17/24 BUN 24 mg/dL (9-16) H 05/17/24 Creatinine 1.62 mg/dL (0.5-1.4) H 05/17/24 Calcium 9.7 mg/dL (8.4-10.2) 05/17/24 Urine Protein Trace mg/dL (Neg-Trace) 05/17/24 Renal US 03/24/24 Assessment & Plan Assessment & Plan (1) CKD (chronic kidney disease): Code(s): N18.9 - Chronic kidney disease, unspecified Category: Medical (2) Essential hypertension: Code(s): I10 - Essential (primary) hypertension Category: Medical (3) DM2 (diabetes mellitus, type 2): Code(s): E11.9 - Type 2 diabetes mellitus without complications Category: Medical Qualifiers: Diabetes mellitus retirement insulin use: without retirement use Diabetes mellitus complication status: with hyperglycemia Qualified Code(s): E11.65 - Type 2 diabetes mellitus with hyperglycemia Plan 58-year-old man with a history of longstanding diabetes mellitus hypertension with obesity and sleep apnea has chronic kidney disease. Recent serum creatinine was 1.8 mg/dL. Over the last 3 years has been a gradual increase serum creatinine from 1.4-1.8. He probably has underlying chronic kidney disease due to hypertensive diabetic kidney disease. The recent serum creatinine is suggestive of natural progression. BAsed on USG, NO obstructive uropathy. Recent urine sediments were benign and therefore interstitial nephritis or glomerular nephritis seem unlikely at this time. NO improvement in creatinine after holding the lisinopril Recommendation Optimize blood pressure. Maintain blood pressure less than 130/80. Stay on low-sodium diet. Encouraged weight loss. Continue to hold Lisinopril Based on BP, would restart lower dose GISELA-i in 4 - 6 weeks Continue to avoid nephrotoxic agents including NSAIDs. Orders: Orders UA and rflx microscopic 3 Months N18.9 - Chronic kidney disease, unspecified Creatinine Urine 3 Months N18.9 - Chronic kidney disease, unspecified Basic Metabolic Panel 3 Months N18.9 - Chronic kidney disease, unspecified Total Protein Urine Random 3 Months N18.9 - Chronic kidney disease, unspecified Coding Level of Care Code Est Pt Level 4 (54251) Diagnoses CKD (chronic kidney disease) N18.9 Essential hypertension I10 Type 2 diabetes mellitus with hyperglycemia, without long-term current use of insulin E11.65 Diabetes mellitus tank terminal gauger insulin use: without tank terminal gauger use Diabetes mellitus complication status: with hyperglycemia
== END 2024-06-15 13:36 | disposition home or self-care (01) ==
LOC: HO.HKAM 13:13
PROVIDERS: PCP Registered Nurse; Visit Provider Internal Medicine Hypertension Specialist
DX: I12.9 Hypertensive chronic kidney disease with stage 1 through stage 4 chronic kidney disease, or unspecified chronic kidney disease (principal); E11.22 Type 2 diabetes mellitus with diabetic chronic kidney disease; N18.9 Chronic kidney disease, unspecified; E11.65 Type 2 diabetes mellitus with hyperglycemia
CPT/HCPCS: 99214

== ENCOUNTER → 2024-06-15 13:13 | Outpatient (BNVA) | payer OTHER, SELFPAY | PROVIDERS: PCP Registered Nurse; Visit Provider Internal Medicine Hypertension Specialist | DX: E11.22 Type 2 diabetes mellitus with diabetic chronic kidney disease (principal); E11.65 Type 2 diabetes mellitus with hyperglycemia; I12.9 Hypertensive chronic kidney disease with stage 1 through stage 4 chronic kidney disease, or unspecified chronic kidney disease; N18.9 Chronic kidney disease, unspecified | CPT/HCPCS: 99212 ==

== ENCOUNTER 2024-08-23 13:57 | Outpatient (REF) | payer OTHER, SELFPAY ==
--- NOTE | ~2024-08-23 | US_ITS ---
CLINICAL HISTORY: TOE PRESSURES, NON HEALING WOUND Ankle-brachial Index. COMPARISON: None FINDINGS: Right side: Right brachial artery: 145 mmHg Right posterior tibial artery: 153 mmHg (1.01) Right dorsalis pedis artery: 152 mmHg (1.01) Right toe: 207 mmHg (1.37) Right KELLY: 1.01 Left side: Left brachial artery: 151 mmHg Left posterior tibial artery: 158 mmHg (1.05) Left dorsalis pedis artery: 155 mmHg (1.03) Left toe: 211 mmHg (1.4) Left KELLY: 1.05 IMPRESSION: 1. Normal bilateral KELLY. This document has been electronically signed by: Blayne Chamberlain MD on 08/24/2024 16:45:02
== END 2024-08-23 13:58 | disposition home or self-care (01) ==
LOC: HO.US 13:57
PROVIDERS: PCP Registered Nurse; Visit Provider Surgery
DX: E11.621 Type 2 diabetes mellitus with foot ulcer (principal); L97.522 Non-pressure chronic ulcer of other part of left foot with fat layer exposed
CPT/HCPCS: 93923

== ENCOUNTER → 2024-08-23 14:17 | Outpatient (BNV) | payer OTHER, SELFPAY | PROVIDERS: PCP Registered Nurse; Visit Provider Radiology Diagnostic Radiology | DX: L89.899 Pressure ulcer of other site, unspecified stage (principal) | CPT/HCPCS: 93923 ==

== ENCOUNTER 2024-08-31 15:23 | Outpatient (REF) | payer OTHER, SELFPAY ==
--- NOTE | ~2024-08-31 | XR_ITS ---
EXAMINATION: XR ABDOMEN 1 VIEW (KUB) HISTORY: right flank pain COMPARISON: There are no prior studies for comparison. FINDINGS: Four supine views of the abdomen are submitted. The bowel gas pattern is unremarkable, without evidence of mechanical obstruction. There is a moderate amount of stool throughout the colon. Calcifications in the pelvis are likely vascular in nature. Exclusion from the urinary tract is not possible on the basis of this examination. There are no abnormal soft tissue masses. There is mild degenerative disc disease of the spine. XR/XR KUB IMPRESSION: Calcifications in the pelvis are likely vascular in nature. However, exclusion from the urinary tract is not possible on the basis of this examination. If there is clinical concern for ureteral calculi, unenhanced CT could be performed. Electronically signed by: Tushar Cordero MD 08/31/2024 03:45 PM EDT
--- OUTSIDE RECORDS SUMMARY | 2024-08-31 17:43 | XMS_ITS | Encounter Summary ---
Author Organization [facility] Address [address] [place] [address] Care Team Providers Care Campus Receptionist Name Role Phone Crawford, [facility] Primary Care Provider Reason for Visit * Reason Comments Med Refill Encounter Details Date Type Department Care Team ([facility] st Contact Info) Description 08/31/2024 Refill [facility] [address] [place] [address] Crawford [facility] [address] [place] [address] Primary hypertension Social History Tobacco Use Types Packs/Day Years Used Date Smoking Tobacco: Former Cigarettes Passive Smoke Exposure: Past Smokeless Tobacco: Never Alcohol Use Standard Drinks/Week Comments Never 0 (1 standard drink = 0.6 oz pur e alcohol) Depression Answer Date Recorded Patient Health Questionnaire-9 Score 0 07/22/2024 Patient Health Questionnaire-9 Score 0 07/22/2024 Last PHQ-9: Questionnaire Data Not on file 0 07/22/2024 Housing Stability Answer Date Recorded What is your housing situation today? I have verna gee 09/18/[address] you li ve. Do you have problems with any of the following? None of the above 09/18/2023 Food Insecurity Answer Date Recorded Within the past 12 months, y ou worried that your food would run out before you got money to buy more: Never True 09/18/2023 Within the past 12 months,th e food you bought just didn't last and you didn't have enough money to get more: Never True Transportation Answer Date Recorded In the past 12 months, has l ack of transportation kept you from medical appts, meetings, work or from getting things needed for daily living? No 09/18/2023 Utilities Answer Date Recorded In the past 12 months, has t he electric, gas, oil or water company threatened to shut off services in your home? No 07/22/2024 Depression Answer Date Recorded Patient Health Questionnaire-2 Score 0 07/22/2024 Internet Access Answer Date Recorded Internet Access Q1 Yes 07/22/2024 Internet Access Q2 Not on file 07/22/2024 Sex and Gender Information Value Date Recorded Sex Assigned at Male 03/31/2022 10:20 AM EDT Legal Sex Male 10:20 AM EDT Gender Identity Male 03/31/2022 10:20 AM EDT Sexual Orientation Straight 03/31/2022 10 :20 AM EDT documented as of this encounter Plan of Treatment Upcoming Encounters Date Type Department Care Team (Late st Contact Info) Description 09/15/2024 10:00 AM EDT Clinical Support [address] [address] 10/19/2024 11:15 AM EDT Office Visit [address] [address] Tg Milner [facility] [address] [place] [address] documented as of this encounter Visit Diagnoses Diagnosis Primary hypertension Unspecified essential hypertension documented in this encounter Additional Health Concerns Assessment Noted Time PHQ-9 Depression Total Score: 0 07/22/19 25 10:03 AM EST documented as of this encounter Care Teams Campus Receptionist Relationship Specialty Start Date End Date Tg Milner FNP [address] [place] [id number] PCP - General Family Medicine 04/28/22 documented as of this encounter
--- OUTSIDE RECORDS SUMMARY | 2024-08-31 17:43 | XMS_ITS | Clinical Summary ---
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 021 Active hydrocortisone (Proctozone-HC) 2.5 % rectal cream Apply topically every 12 (twelve) hours. 020 Active simethicone (Gas-X Extra Strength) 125 MG capsule Take one capsule as needed every 8 hours PRN 019 Active latanoprost (Xalatan) 0.005 % ophthalmic solution PLACE 1 DROP IN EACH EYE EVERY NIGHT 023 Active Alcohol Swabs (Alcohol Pads) 70 % pads Use as directed 100 each 11 023 Active albuterol 108 (90 Base) MCG/ACT inhaler Inhale 2 puffs every 4 (four) hours if needed for wheezing. 18 g 024 Active glucose blood (FREESTYLE LITE) test stripIndications: Diabetic polyneuropathy associated with type 2 diabetes mellitus ([facility]/HCC) TEST BLOOD SUGAR ONCE DAILY IN THE MORNING 50 strip Active pravastatin (Pravachol) 40 MG tabletIndications :Mixed hyperlipidemia TAKE 1 TABLET BY MOUTH AT BEDTIME 30 tablet Active amLODIPine (Norvasc) 10 MG tabletIndications :Primary hypertension Take 1 tablet (10 mg) by mouth Once per day. 30 tablet 2024 Active Diclofenac Sodium 1 % gelIndications:Ca lcaneal bursitis (heel), right APPLY 2 GRAMS TOPICALLY TO AFFECTED AREA(S) TWICE DAILY 100 g 2 Active dulaglutide (Trulicity) 4.5 MG/0.5ML solution pen-injectorIndic ations:Type 2 diabetes mellitus with other circulatory complication, without long-term current use of insulin ([facility]) Inject 4.5 mg under the skin 1 (one) time per week. 4 each Active Jardiance 25 MGIndications:Typ e 2 diabetes mellitus without complication, without long-term current use of insulin ([facility]) TAKE 1 TABLET BY MOUTH EVERY MORNING 90 tablet 1 Active Aspirin Low Dose 81 MG EC tabletIndications :Primary hypertension TAKE 1 TABLET BY MOUTH EVERY DAY 90 tablet 3 Active pantoprazole (ProtoNix) 20 MG EC tabletIndications :Gastroesophageal reflux disease, unspecified whether esophagitis present TAKE 1 TABLET BY MOUTH EVERY DAY IN THE MORNING 90 tablet 3 Active Additional Information Patient not taking.Reported on 04/21/2024 melatonin 5 MG tabletIndications :Obstructive sleep apnea TAKE 2 TABLETS BY MOUTH EVERY DAY AT BEDTIME NEEDED FOR SLEEP 180 tablet 3 Active metFORMIN XR (Glucophage-XR) 500 MG 24 hr tabletIndications :Type 2 diabetes mellitus with other circulatory complication, without long-term current use of insulin ([facility]) TAKE 2 TABLETS BY MOUTH TWICE DAILY IN THE MORNING AND EVENING WITH MEALS 360 tablet 3 Active triamcinolone (Nasacort) 55 MCG/ACT nasal inhaler INSTILL 2 SPRAYS IN EACH NOSTRIL ONCE DAILY IN THE MORNING 16.9 mL 11 025 Active insulin glargine (Lantus SoloStar) 100 UNIT/ML penIndications:Ty pe 2 diabetes mellitus with stage 3 chronic kidney disease, with long-term current use of insulin, unspecified whether stage 3a or 3b CKD ([facility]) Inject 6 Units under the skin at bedtime. 3 mL 12 025 2025 Active insulin pen needle 32G x 4 mm miscIndications:T ype 2 diabetes mellitus with stage 3 chronic kidney disease, with long-term current use of insulin, unspecified whether stage 3a or 3b CKD ([facility]) Use as instructed 100 each 12 025 2025 Active Continuous Glucose Sensor (FreeStyle May 2 Sensor) miscIndications:T ype 2 diabetes mellitus with stage 3 chronic kidney disease, with long-term current use of insulin, unspecified whether stage 3a or 3b CKD ([facility]) Use as directed 2 each 3 025 Active Continuous Glucose Tobacco Prizer (FreeStyle May 2 [place]) deviceIndications :Type 2 diabetes mellitus with stage 3 chronic kidney disease, with long-term current use of insulin, unspecified whether stage 3a or 3b CKD ([facility]) Use as directed 1 each 025 Active spironolactone-hy droCHLOROthiazide (Aldactazide) 25-25 MG tabletIndications :Essential hypertension Take 1 tablet (25 mg) by mouth Once per day. 90 tablet 3 025 2025 Active gabapentin (Neurontin) 800 MG tabletIndications :Primary osteoarthritis of right knee Take 1 tablet (800 mg) by mouth every 8 (eight) hours. 90 tablet 025 Active metoprolol succinate XL (Toprol-XL) 200 MG 24 hr tabletIndications :Primary hypertension TAKE 1 TABLET BY MOUTH EVERY DAY FOR BLOOD PRESSURE 90 tablet 3 025 Active acetaminophen (Tylenol) 500 MG tabletIndications :Pain in right lumbar region of back,Right flank pain Take 1 tablet (500 mg) by mouth every 6 (six) hours if needed for mild pain. 30 tablet 2 025 Active metoprolol succinate XL (Toprol-XL) 200 MG 24 hr tabletIndications :Primary hypertension TAKE 1 TABLET BY MOUTH EVERY DAY (for high blood pressure) 90 tablet 3 024 2024 Discontinued acetaminophen (Tylenol) 500 MG tabletIndications :Calcaneal bursitis (heel), right Take 1 tablet (500 mg) by mouth every 6 (six) hours if needed for mild pain. 30 tablet 2 024 2024 Discontinued(R eorder (will not trigger notification to Pharmacy)) gabapentin (Neurontin) 800 MG tabletIndications :Primary osteoarthritis of right knee TAKE 1 TABLET BY MOUTH EVERY 8 HOURS 90 tablet 024 2024 Discontinued(R eorder (will not trigger notification to Pharmacy)) Active Problems Problem Noted Date Diagnosed Date Pain in right lumbar region of back 08/31/2024 Assessment & Plan (08/31/2024 3:22 PM EDT): Suspect likely more so flank related, given associated symptoms and location of tenderness on exam. No back pain red flags. Prescribed Acetaminophen for pain, PRN. Right flank pain 08/31/2024 Assessment & Plan (08/31/2024 3:19 PM EDT): Unknown etiology. Intermittent initially over the past 3 weeks, but constant the last couple days. -ordered KUB 08/31/24 -ordered HFP, lipase, amylase, CBC and UA with culture 08/31/24 Calcaneal bursitis (heel), right 08/31/2024 Type 2 diabetes mellitus wit h stage 3 chronic kidney disease, with long-term current use of insulin 08/31/2024 Class 1 obesity due to exces s calories with serious comorbidity and body mass index (BMI) of 34.0 to 34.9 in adult 08/31/2024 Assessment & Plan (08/31/2024 3:21 PM EDT): Discussed weight, diet, exercise with patient in relation to health conditions. Used motivational interviewing to illicit change talk and established initial goals with patient. Dietary counseling 08/31/2024 Assessment & Plan (08/31/2024 3:22 PM EDT): Dietary Recommendations: Fruits, vegetables, whole grains, protein foods, and fat-free or low-fat dairy products are healthy choices. Eat different types of protein foods in your diet. This can include seafood, lean meats, poultry, beans, peas, lentils, nuts, seeds, soy products, and eggs. Limit foods and beverages higher in added sugars, saturated fat, and sodium. Exercise counseling 08/31/2024 Assessment & Plan (08/31/2024 3:22 PM EDT): Exercise Recommendations: At least 150 minutes of moderate-intensity physical activity per week, or an equivalent combination of moderate- and vigorous-intensity activity Open wound of left great toe 05/19/2024 Assessment & Plan (05/19/2024 11:30 AM EST): Continue taking antibiotics as prescribed Maintain wound dry and clean Wound clinic referral Diabetic foot 05/19/2024 Productive cough 04/21/2024 Assessment & Plan (04/21/2024 4:25 PM EST): COVID 19 and Flu are neg here ,reports worsening cough -productive , not improving taking mucinex Noted purulent sputum in back of throat Possible bronchitis -Pxed today guaifenesin -amoxicillin BID x7 days -Alarm signs and symptoms discussed -hydration advised Diabetic polyneuropathy asso ciated with type 2 diabetes mellitus 11/09/2023 BPPV (benign paroxysmal positional vertigo) 07/30 Glaucoma 01/21/2023 Healthcare maintenance 11/26/2022 Overview (01/11/2024): C-Scope: Due 2023. Has prep supplies at home. Pt will call GI to inquire re appt. details PSA:07/2022 1.36--repeat ordered today AAA screening: Ordered 12/2023 Vision Exam: HHC; UTD Dental Care: Overdue. Pt with anxiety re possiblity of teeth removal. Discussed importance of regular dental cleanings. Pt agrees to contact dental Immunizations: Declines all vaccines. 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 Lisinopril 40mg ?? Amlodipine 5mg ?? hydrochlorothiazide 50mg ?? Metoprolol 200mg XR Maintenance: BMP: 08/2022 Lipid Panel: 08/2022 ASCVD Risk: >20% EKG: Obtain baseline at f/u - Aerobic exercise to reduce BP. Initial goal of 30 min walk 3-5x/week. Increase as tolerated. - low-sodium diet (goal: <2g/day) and heart healthy diet such as DASH to reduce BP and prevent ASCVD. - Home BP monitoring 1-2 x day with goal of <140/90. - Seek immediate medical attention for chest pain, palpitations, SOB, syncope, or sudden changes in mental status. - Do not change or discontinue current prescriptions without first consulting health care provider Assessment & Plan (02/11/2023 5:40 AM EDT): ?? Well controlled ?? Continue current regimen Peripheral venous insufficiency 06/14/2018 Overview (11/26/2022): ?? Followed by [facility] vascular ?? Compression stockings ?? Pain managed with gabapeentin 800mg t.i.d ?? Followed by [facility] wound care for venous stasis ulcer Assessment & Plan (02/11/2023 5:41 AM EDT): ?? Continue use of compression stockings ?? Follow as scheduled with wound care Nonalcoholic steatohepatitis 01/13/2017 Osteoarthritis involving mul tiple joints on both sides of body 01/13/2017 Obstructive sleep apnea syndrome 06/23/2012 Hyperlipidemia 06/23/2012 Overview (11/26/2022): ?? Simvastatin 20mg daily ?? Unable to tolerate rosuvastatin (chest pain) Assessment & Plan (02/11/2023 5:42 AM EDT): ?? Continue current regimen ?? Repeat fasting lipid panel at follow up Assessment & Plan (11/26/2022 1:45 PM EDT): ?? EKG in office WNL. ?? STOP rosuvastatin ?? Restart simvastatin 20mg daily Type 2 diabetes mellitus wit h circulatory disorder, without long-term current use of insulin 03/15/2012 Overview (01/11/2024): Trulicity Metformin Jardiance Foot Exam: 07/2023--RISK 1 Eye Exam: Through [facility]. UTD Statin: Yes ASA: Yes GISELA/ARB: Yes Encouraged regular aerobic exercise for improved glycemic control Encouraged daily foot checks Encouraged lean protein snacks and to avoid foods high in sugar and simple carbohydrates Treatment Goals: A1c goal: <7% FBG goal: <130 2 hour post prandial goal: <180 Assessment & Plan (02/11/2023 5:42 AM EDT): Lab Results Component Value Date HGBA1C 6.9 (H) 09/01/2022 ?? Continue current regimen Assessment & Plan (11/26/2022 1:39 PM EDT): Lab Results Component Value Date HGBA1C 6.9 (H) 09/01/2022 ?? Continue current regimen Resolved Problems Problem Noted Date Diagnosed Date Resolved Date Shortness of breath 08/17/2023 12/10/19 24 Diarrhea 05/15/2022 09/01/2022 Postural dizziness 05/15/2022 3 Clostridium difficile diarrhea 05/17/2019 09/01/2022 Obesity (BMI 30-39.9) 09/30/20182023 Abdominal bloating 06/14/2018 3 Dystrophia unguium 06/14/2018 3 Foot callus 01/27/2018 09/01/2022 Hyperlipidemia associated wi type 2 diabetes mellitus 01/13/2017 11/26/2022 Tooth disorder 01/13/2017 09/01/2022 Peripheral vascular disease 01/13/2017 11/26/2022 Hypertension 03/15/2012 11/26/2022 Encounters Date Type Department Care Team Description 08/31/2024 3:00 PM EDT Office Visit [facility] [address] [place] [phone] Melisa Jacob MD Pain in right lumbar region of back (Primary Dx); Right flank pain; Calcaneal bursitis (heel), right; Class 1 obesity due to excess calories with serious comorbidity and body mass index (BMI) of 34.0 to 34.9 in adult; Dietary counseling; Exercise counseling 08/31/2024 Telephone [facility] [address] [place] [phone] Melisa Jacob MD 08/31/2024 Refill [facility] [address] [place] [phone] Tg Milner FNP Primary hypertension 08/23/2024 Orders Only [facility] External Provider, [facility] 08/16/2024 1:00 PM EDT Clinical Support [address] [address] Heidi Silva RN Type 2 diabetes mellitus with other circulatory complication, without long-term current use of insulin ([facility]) 08/16/2024 Travel 08/04/2024 Refill [facility] [address] [place], [place] [phone] Tg Milner FNP Primary osteoarthritis of right knee 07/25/2024 Telephone [facility] [address] [place] [address] Tg Milner FNP CGM PA 07/22/2024 10:15 AM EST Office Visit [address] [address] Tg Milner FNP Type 2 diabetes mellitus with stage 3 chronic kidney disease, with long-term current use of insulin, unspecified whether stage 3a or 3b CKD ([facility]) (Primary Dx); Essential hypertension; Dietary counseling; Exercise counseling; Class 1 obesity due to excess calories with serious comorbidity and body mass index (BMI) of 34.0 to 34.9 in adult 07/22/2024 Travel 07/21/2024 Telephone [facility] [address] [place] [address] EllisTg FNP chart prep 07/07/2024 Refill [facility] [address] [place] [phone] Jaclyn Hutton FNP from Last 3 Months Immunizations Name Administration Dates Next Due Pneumococcal Polysaccharide PPSV23 09/03/2009 TD (adult), 2 Lf tetanus tox oid, preservative free, adsorbed 12/24/2018 Tdap 09/01/2009 Family History Medical History Relation Name Comments Diabetes type II Mother HTN Mother Relation Name Status Comments Mother Social History Tobacco Use Types Packs/Day Years Used Date Smoking Tobacco: Former Cigarettes Passive Smoke Exposure: Past Smokeless Tobacco: Never Tobacco Cessation:Counseling Given: Not Answered Alcohol Use Standard Drinks/Week Comments Never 0 [...] Orientation Straight 03/31/2022 10 :20 AM EDT Last Filed Vital Signs Vital Sign Reading Time Taken Comments Blood Pressure 148/84 08/31/2024 2:28 PM EDT Pulse 71 08/31/2024 2:28 PM EDT Temperature 36.7 ??C (98.1 ??F) 08/31/2024 2:28 PM ED T Respiratory Rate 16 08/31/2024 2:28 PM EDT Oxygen Saturation 98% 08/31/2024 2:28 PM EDT Inhaled Oxygen Concentration - - Weight 108 kg (237 lb) 08/31/2024 2:28 PM EDT Height 177.8 cm (5' 10 ) 08/31/2024 2:28 PM EDT Body Mass Index 34.01 08/31/2024 2:28 PM EDT Plan of Treatment Upcoming Encounters Date Type Department Care Team (Late st Contact Info) Description 09/15/2024 10:00 AM EDT Clinical Support [facility] [address] [place] [phone] 10/19/2024 11:15 AM EDT Office Visit [facility] [address] [place] [phone] Ellis, Tg, [employer] [address] [place] [address] Health Maintenance Due Date Last Done Comments CT Colonography 1960 Colonoscopy 1960 Colorectal Cancer Screening 1960 FIT DNA/Cologuard 1960 FIT 1960 FOBT 1960 Sigmoidoscopy 1960 Hepatitis A Vaccines (1 of 2 - Risk 2-dose series) 1977 Zoster Vaccines (1 of 2) 2008 Pneumococcal Vaccine: 50+ Years (2 of 2 - PCV) 09/03/2010 09/03/2009 Hepatitis B Vaccines (1 of 3 - Risk 3-dose series) 2018 RSV Patients and Patients Aged 60 years or older (1 - Risk 60-74 years 1-dose series) 2018 COVID-19 Vaccine ( season) 2024 Influenza Vaccine (#1) 2024 Diabetes: Hemoglobin A1C 10/19/2024 025, 12/11/2023, 12/11/2023, Additional history exists Diabetes: Foot Exam 11/08/2024 11/09/2023, 11/09/2023, 11/09/2023, Additional history exists Diabetes: Urine Protein Screening 01/21/2025 01/22/2024, 12/11/2023, 11/26/2021, Additional history exists Lipid Panel 01/21/2025 01/22/2024, 11/29, 09/01/2022, Additional history exists Eye Exam 02/10/2025 02/10/2023, 01/30, 02/10/2023, Additional history exists Alcohol/Substance Use Screening 07/22/2025 07/22/2024 Depression Screening 07/22/2025 07/22/2024, 07/22/19 25 SDOH Screening 07/22/2025 07/22/2024 Tobacco Screening 07/24/2025 07/24/2024 DTaP/Tdap/Td Vaccines (3 - Td or Tdap) 12/24/2028 12/24/2018, 09/01/2009 Hepatitis C Screening Completed 09/01/2022 HIB Vaccines Aged Out No longer eligi ble based on patient's age to complete this topic HPV Vaccines Aged Out No longer eligi ble based on patient's age to complete this topic IPV Vaccines Aged Out No longer eligi ble based on patient's age to complete this topic Meningococcal Vaccine Aged Out No ashli lissette eligible based on patient's age to complete this topic RSV under 20 months Aged Out No longe r eligible based on patient's age to complete this topic Rotavirus Vaccines Aged Out No longer eligible based on patient's age to complete this topic Procedures Procedure Name Priority Date/Time Associated Diagnosis Comments XR KUB AND UPRIGHT 2 VIEWS Routine 08/31/2024 3:24 PM EDT Right flank pain US KELLY COMPLETE Routine 08/24/2024 4:45 PM EDT POCT GLUCOSE Routine 07/22/2024 10:04 AM EST Type 2 diabetes mellitus with stage 3 chronic kidney disease, with long-term current use of insulin, unspecified whether stage 3a or 3b CKD (CMS/HCC) POCT GLYCATED HEMOGLOBIN, TOTAL Routine 07/22/2024 10:04 AM EST Type 2 diabetes mellitus with stage 3 chronic kidney disease, with long-term current use of insulin, unspecified whether stage 3a or 3b CKD (CMS/HCC) ALBUMIN, RANDOM URINE W/CREATININE Routine 01/22/2024 10:30 AM EDT Type 2 diabetes mellitus with hyperglycemia, without long-term current use of insulin (CMS/HCC) LIPID PANEL, STANDARD Routine 01/22/2024 10:21 AM EDT Type 2 diabetes mellitus with hyperglycemia, without long-term current use of insulin (CMS/HCC) HEPATITIS C AB W/REFL TO HCV RNA, QN, PCR Routine 09/01/2022 2:59 PM EDT Healthcare maintenance from Last 3 Months or Most Recently Relevant to Health Maintenance Results * XR KUB and Upright 2 Views (08/31/2024 3:24 PM EDT) Anatomical Region Laterality Modality Radiographic Cheryl ging 08/31/2024 3:24 PM EDT Narrative 08/31/2024 3:48 PM EDT ?[facility] ?[address] ?[place] [address] ?XRay Report ? Signed ? Patient: Brandt Nelson ?MR#: MM ?? [id number] ? : 1960 ?Acct:[id number] ? Age/Sex: 63 / M ?ADM Date: 08/31/24 ? Loc: HO.HHCX ? Attending Dr: Melisa Jacob MD ? Ordering Physician: Melisa Jacob MD ?? Date of Service: 08/31/24 ?? Procedure(s): XR KUB ?? Accession Number(s): [id number] ? cc: Melisa Jacob MD ? EXAMINATION: ??XR ABDOMEN 1 VIEW (KUB) ? HISTORY: right flank pain ? COMPARISON: There are no prior studies for comparison. ? FINDINGS: ??Four supine views of the abdomen are submitted. ?? The bowel ?? gas pattern is unremarkable, without evidence of mechanical ?? obstruction. There is a moderate amount of stool throughout the colon. ? Calcifications in the pelvis are likely vascular in nature. Exclusion ?? from the urinary tract is not possible on the basis of this ?? examination. ?? There are no abnormal soft tissue masses. ??There is mild ?? degenerative disc disease of the spine. ? XR/XR KUB ?? IMPRESSION: ?? Calcifications in the pelvis are likely vascular in nature. However, ?? exclusion from the urinary tract is not possible on the basis of this ?? examination. If there is clinical concern for ureteral calculi, ?? unenhanced CT could be performed. ? Electronically signed by: ??Tushar Cordero MD ??08/31/2024 03:45 PM EDT ? Dictated By: ?Tushar Cordero MD ? Signed By: ?<Electronically signed by Tushar Cordero MD in OV> ?08/31/24 1545 ? DD/ 1524 ? TD/TT: 08/31/24 1530 ? Cotton Picker Operator: ? Procedure Note Donmark anthonyter, Image - 08/31/[address] [address] XRay Report Signed Patient: Brandt NelsonMR#: [id number] : 9Acct:[id number] Age/Sex: 63 / MADM Date: 08/31/24 Loc: HO.HHCX Attending Dr: Melisa Jacob MD Ordering Physician: Melisa Jacob MD Date of Service: 08/31/24 Procedure(s): XR KUB Accession Number(s): [id number] cc: Melisa Jacob MD EXAMINATION: XR ABDOMEN 1 VIEW (KUB) HISTORY: right flank pain COMPARISON: There are no prior studies for comparison. FINDINGS: Four supine views of the abdomen are submitted. The bowel gas pattern is unremarkable, without evidence of mechanical obstruction. There is a moderate amount of stool throughout the colon. Calcifications in the pelvis are likely vascular in nature. Exclusion from the urinary tract is not possible on the basis of this examination. There are no abnormal soft tissue masses. There is mild degenerative disc disease of the spine. XR/XR KUB IMPRESSION: Calcifications in the pelvis are likely vascular in nature. However, exclusion from the urinary tract is not possible on the basis of this examination. If there is clinical concern for ureteral calculi, unenhanced CT could be performed. Electronically signed by: Tushar Cordero MD 08/31/2024 03:45 PM EDT Dictated By: Tusahr Cordero MD Signed By: <Electronically signed by Tushar Cordero MD in OV> 08/31/24 1545 DD/ 1524 TD/TT: 08/31/24 1530 Cotton Picker Operator: us Melisa Jacob MD IMG XR PROCEDURES Final Re sult * US KELLY COMPLETE (08/24/2024 4:45 PM EDT) Anatomical Region Laterality Modality Abdomen Ultrasound 08/24/2024 4:45 PM EDT Narrative 08/24/2024 4:46 PM EDT ? [facility] ?[address] ?[place] [address] ? Ultrasound Report ? Signed ? Patient: Brandt Nelson ?MR#: MM ?? [id number] ? : 1960 ?Acct:[id number] ? Age/Sex: 63 / M ?ADM Date: 08/23/24 ? Loc: HO.US ? Attending Dr: Nieves Cabrera MD ? Ordering Physician: Nieves Cabrera MD ?? Date of Service: 08/23/24 ?? Procedure(s): US KELLY complete ?? Accession Number(s): [id number] ? cc: Nieves Cabrera MD; EllisTg dalal [facility] ? CLINICAL HISTORY: TOE PRESSURES, NON HEALING WOUND ? Ankle-brachial Index. ? COMPARISON: None ? FINDINGS: ?? Right side: ?? Right brachial artery: 145 mmHg ?? Right posterior tibial artery: 153 mmHg (1.01) ?? Right dorsalis pedis artery: 152 mmHg (1.01) ?? Right toe: 207 mmHg (1.37) ? Right KELLY: 1.01 ? Left side: ?? Left brachial artery: 151 mmHg ?? Left posterior tibial artery: 158 mmHg (1.05) ?? Left dorsalis pedis artery: 155 mmHg (1.03) ?? Left toe: 211 mmHg (1.4) ? Left KELLY: 1.05 ? IMPRESSION: ?? 1. Normal bilateral KELLY. ? This document has been electronically signed by: Blayne Chamberlain MD on ?? 08/24/2024 16:45:02 ? Dictated By: ?Blayne Chamberlain MD ? Signed By: ?<Electronically signed by Blayne Chamberlain MD in OV> ?08/24/24 1646 ? DD/ ? TD/TT: 08/24/245 ? Cotton Picker Operator: ? Procedure Note Donotuseinterpreter, Image - 08/24/[address] [address] Ultrasound Report Signed Patient: Yolande Nelson#: MM [id number] : 9Acct:[id number] Age/Sex: 63 / MADM Date: 08/23/24 Loc: HO.US Attending Dr: Nieves Cabrera MD Ordering Physician: Nieves Cabrera MD Date of Service: 08/23/24 Procedure(s): US KELLY complete Accession Number(s): [id number] cc: Nieves Cabrera MD; [facility] CLINICAL HISTORY: TOE PRESSURES, NON HEALING WOUND Ankle-brachial Index. COMPARISON: None FINDINGS: Right side: Right brachial artery: 145 mmHg Right posterior tibial artery: 153 mmHg (1.01) Right dorsalis pedis artery: 152 mmHg (1.01) Right toe: 207 mmHg (1.37) Right KELLY: 1.01 Left side: Left brachial artery: 151 mmHg Left posterior tibial artery: 158 mmHg (1.05) Left dorsalis pedis artery: 155 mmHg (1.03) Left toe: 211 mmHg (1.4) Left KELLY: 1.05 IMPRESSION: 1. Normal bilateral KELLY. This document has been electronically signed by: Blayne Chamberlain MD on 08/24/2024 16:45:02 Dictated By: Blayne Chamberlain MD Signed By: <Electronically signed by Blayne Chamberlain MD in OV> 08/24/24 1646 DD/ 1645 TD/TT: 08/24/24 164 Cotton Picker Operator: us [facility] External Provider IMG US PROCEDURES Final Result * (ABNORMAL) POCT HGB A1C (07/22/2024 10:04 AM EST) Hemoglobin A1C 8.2(A) 4.0 - 6.0 % QC Media Lot # [id number] Lot# Expiration Date Blood 07/22/2024 10:0 4 AM EST [facility] POINT OF CARE TEST ENTER/EDIT ORDERABLES Final Result * POCT Glucose (07/22/2024 10:04 AM EST) Glucose Blood, POC 145 60 - 200 mg/dL QC Media Lot # [id number] Lot# Expiration Date Blood Capillary blood specimen / Unknown 07/22/2024 10:04 AM EST [facility] POINT OF CARE TEST ENTER/EDIT ORDERABLES Final Result * Albumin, Random Urine W/Creatinine (01/22/2024 10:30 AM EDT) Creatinine, Urine 64.84 mg/dL [facility] Microalbumin Urine 10.0 mg/L [facility] Microalbum Creatinine Ratio Ur 15.4 <30 ug/mg cr [facility] Comment:Albumin/Creatinine R atio Reference Ranges: Normal: < 30 ug/mg creatinine Microalbuminuria: 30 - 300 ug/mg creatinineClinical Albuminuria: > 300 ug/mg creatinine Urine 01/22/2024 10:3 0 AM EDT 01/22/2024 11:05 AM EDT [facility] LAB URINE ORDERABLES Final Re sult [facility] [address] [place], [place] [phone] * (ABNORMAL) Lipid Panel, Standard (01/22/2024 10:21 AM EDT) Triglycerides 291(H) <150 mg/dL [facility] Comment:Desirable Triglyceri de: less than 150 mg/dLBorderline High Triglyceride 150-199 mg/dLHigh Triglyceride: 200-499 mg/dLVery High Triglyceride: greater than or equal to 5OO mg/dL Cholesterol 166 <200 mg/dL [facility] Comment:Desirable Cholestero l: less than 200 mg/dLBorderline High Cholesterol: 200-239 mg/dLHigh Cholesterol: greater than 239 mg/dL LDL Cholesterol Calculated 77 <100 mg/dL [facility] Comment:Desirable LDL: less than 100 mg/dLNear Optimal/Above Optimal LDL: 110- 129 mg/dLBorderline High LDL: 130-159 mg/dLHigh LDL: 160-189 mg/dLVery High LDL: greater than or equal to 190 mg/dL HDL Cholesterol 31(L) >40 mg/dL [facility] Comment:Desirable HDL: great er than 40 mg/dL Note: This HDL assay may give artificially low results in patients with liver disease. Blood Venous blood specimen / Unknown 01/22/2024 10:21 AM EDT 01/22/2024 11:05 AM EDT [facility] LAB BLOOD ORDERABLES Final Re sult [facility] [address] [place] [phone] * Hepatitis C Antibody with Reflex to HCV, RNA, Quantitative, Real-Time PCR (09/01/2022 2:59 PM EDT) Hepatitis C Antibody NON-REACT DARY NON-REACT DARY NCR [facility] [place] [facility] Index 0.09 <1.00 NCR [facility] Comment: HCV antibody was non-reactive. There is no laboratory evidence of HCV infection. In most cases, no further action is required. However, if recent HCV exposure is suspected, a test for HCV RNA (test code 04530) is suggested. For additional information please refer to [email or web address]/YVK24q5 (This link is being provided for informational/ educational purposes only.) Blood Venous blood specimen / Unknown 09/01/2022 2:59 PM EDT 09/01/2022 2:59 PM EDT [facility] LAB BLOOD ORDERABLES Final Re sult [facility] [address] [facility], [facility], [place] [address] [facility] [address] [place] [address] from Last 3 Months or Most Recently Relevant to Health Maintenance Insurance [facility] Care Teams Truck Greaser Relationship Specialty Start Date End Date Tg Milner FNP [address] [place] [address] PCP - General Family Medicine 04/28/22
--- OUTSIDE RECORDS SUMMARY | 2024-08-31 17:43 | XMS_ITS | Encounter Summary ---
Author Organization [employer] [facility] Address [address] [place] [address] Care Team Providers Care Monogram Maker Name Role Phone Annia Tg [facility] Primary Care Provider [phone] Encounter Details Date Type Department Care Team (Late st Contact Info) Description 07/10/2022 Orders Only [facility] MEDICINE [address] [place] [address] Chante Mackey LPN Social History Tobacco Use Types Packs/Day Years Used Date Smoking Tobacco: Never Assessed Sex and Gender Information Value Date Recorded Sex Assigned at Male 03/31/2022 10:20 AM EDT Legal Sex Male 10:20 AM EDT Gender Identity Male 03/31/2022 10:20 AM EDT Sexual Orientation Straight 03/31/2022 10 :20 AM EDT documented as of this encounter Plan of Treatment Upcoming Encounters Date Type Department Care Team (Late st Contact Info) Description 09/15/2024 10:00 AM EDT Clinical Support [address] [address] 10/19/2024 11:15 AM EDT Office Visit [facility] MEDICINE [address] [place] [address] Tg Milner [address] [address] documented as of this encounter Visit Diagnoses Not on filedocumented in this encounter Care Teams Monogram Maker Relationship Specialty Start Date End Date Tg Milner FNP [address] [place] [address] PCP - General Family Medicine 04/28/22 documented as of this encounter
--- OUTSIDE RECORDS SUMMARY | 2024-08-31 17:43 | XMS_ITS | Encounter Summary ---
Author Organization [employer] [facility] Address [address] [place] [address] [address] [place] [address] Care Team Providers Care Chief Quality Officer Name Role Phone [facility] Primary Care Provider [phone] Reason for Visit * Reason Comments Med Refill Encounter Details Date Type Department Care Team (Late Contact Info) Description 12/22/2022 Refill [facility] [address] [place], [place] [phone] [facility] [address] [place] [address] Primary hypertension Social History Tobacco Use Types Packs/Day Years Used Date Smoking Tobacco: Former Cigarettes Smokeless Tobacco: Never Alcohol Use Standard Drinks/Week Comments Never 0 (1 standard drink = 0.6 oz pur e alcohol) Depression Answer Date Recorded Patient Health Questionnaire-9 Score 0 11/24/2022 Depression Answer Date Recorded Patient Health Questionnaire-2 Score 0 11/24/2022 Sex and Gender Information Value Date Recorded Sex Assigned at Male 03/31/2022 10:20 AM EDT Legal Sex Male 10:20 AM EDT Gender Identity Male 03/31/2022 10:20 AM EDT Sexual Orientation Straight 03/31/2022 10 :20 AM EDT COVID-19 Exposure Response Date Recorded In the last 10 days, have yo u been in contact with someone who was confirmed or suspected to have Coronavirus/COVID-19? No / Unsure 11/24/2022 3:15 PM EDT documented as of this encounter Plan of Treatment Upcoming Encounters Date Type Department Care Team (Late Contact Info) Description 09/15/2024 10:00 AM EDT Clinical Support [facility] [address] [place] [phone] 10/19/2024 11:15 AM EDT Office Visit [facility] [address] [facility] [place] [address] Tg Milner FNP [address] [facility] [place] [address] documented as of this encounter Visit Diagnoses Diagnosis Primary hypertension Unspecified essential hypertension documented in this encounter Additional Health Concerns Assessment Noted Time PHQ-9 Depression Total Score: 0 11/25/19 23 3:32 PM EDT documented as of this encounter Care Teams Chief Quality Officer Relationship Specialty Start Date End Date Tg Milner FNP [address] [place] [address] PCP - General Family Medicine 04/28/22 documented as of this encounter
--- OUTSIDE RECORDS SUMMARY | 2024-08-31 17:43 | XMS_ITS | Encounter Summary ---
Author Organization [employer] Address [address] [facility] 7[address] [place] [address] Care Team Providers Care Chief Hospital Administrator Name Role Phone Tg Milner OPERATIONS RESEARCH ENGINEER Primary Care Provider [phone] Encounter Details Date Type Department Care Team (Late st Contact Info) Description 08/31/2024 3:00 PM EDT Office Visit [facility] 230 [place] [address] Melisa Jacob MD 230 [place] [address] Pain in right lumbar region of back (Primary Dx); Right flank pain; Calcaneal bursitis (heel), right; Class 1 obesity due to excess calories with serious comorbidity and body mass index (BMI) of 34.0 to 34.9 in adult; Dietary counseling; Exercise counseling Social History Tobacco Use Types Packs/Day Years [...] AM EDT documented as of this encounter Last Filed Vital Signs Vital Sign Reading [...] Mass Index 34.01 08/31/2024 2:28 PM EDT documented in this encounter Progress Notes * Tate Box - 08/31/2024 3:00 PM EDT Subjective Patient ID: Brandt Whaley is a 63 y.o. male with past medical history of type 2 diabetes, hypertension, PVD, CAROLINE, bells palsy and HLD who presents to walk in clinic for right lower back/rib pain. Pt reports he has had 3 weeks of pain in his right flank that radiates to RUQ. Was intermittent initially, but the last couple days has become constant. Notes he had some pain in his flank/abdomen with urination this morning. Denies any penile pain. Denies any urinary or bowel incontinence. Denies any fevers. Review of Systems Constitutional: Negative for fever and unexpected weight change. Respiratory: Negative for shortness of breath. Cardiovascular: Negative for chest pain. Gastrointestinal: Positive for abdominal pain. Genitourinary: Negative for difficulty urinating. Musculoskeletal: Positive for back pain. Objective Visit Vitals BP (!) 148/84 (BP Location: Left arm, Patient Position: Sitting, BP Cuff Size: Large adult) Pulse 71 Temp 98.1 ??F (36.7 ??C) (Oral) Resp 16 Body mass index is 34.01 kg/m??. Physical Exam Constitutional: Appearance: Normal appearance. Cardiovascular: Rate and Rhythm: Normal rate and regular rhythm. Heart sounds: Normal heart sounds. Pulmonary: Effort: Pulmonary effort is normal. Breath sounds: Normal breath sounds. Abdominal: General: Abdomen is flat. Palpations: Abdomen is soft. Tenderness: There is abdominal tenderness (with depalpation) in the right upper quadrant. There is no right CVA tenderness, left CVA tenderness, guarding or rebound. Comments: R flank tenderness. Musculoskeletal: Cervical back: Normal range of motion. Neurological: Mental Status: He is alert. Mental status is at baseline. Psychiatric: Behavior: Behavior normal. Problem List Items Addressed This Visit Pain in right lumbar region of back - Primary Suspect likely more so flank related, given associated symptoms and location of tenderness on exam.No back pain red flags. Prescribed Acetaminophen for pain, PRN. Relevant Medications acetaminophen (Tylenol) 500 MG tablet Right flank pain Unknown etiology. Intermittent initially over the past 3 weeks, but constant the last couple days. -ordered KUB 08/31/24 -ordered HFP, lipase, amylase, CBC and UA with culture 08/31/24 Relevant Medications acetaminophen (Tylenol) 500 MG tablet Other Relevant Orders XR KUB and Upright 2 Views Hepatic Function Panel Lipase Amylase CBC auto differential Urinalysis, Complete, with Reflex to Culture Calcaneal bursitis (heel), right Class 1 obesity due to excess calories with serious comorbidity and body mass index (BMI) of 34.0 to 34.9 in adult Discussed weight, diet, exercise with patient in relation to health conditions. Used motivational interviewing to illicit change talk and established initial goals with patient. Dietary counseling Dietary Recommendations: Fruits, vegetables, whole grains, protein foods, and fat-free or low-fat dairy products are healthychoices. Eat different types of protein foods in your diet. This can include seafood, lean meats, poultry, beans, peas, lentils, nuts, seeds, soy products, and eggs. Limit foods and beverages higher in added sugars, saturated fat, and sodium. Exercise counseling Exercise Recommendations: At least 150 minutes of moderate-intensity physical activity per week, or an equivalent combinationof moderate- and vigorous-intensity activity -No evidence of acute disease process. Unknown etiology. Symptoms mild. -Will treat with analgesic for pain and ordered labs as well as x-ray. -ER precautions discussed. -Seek medical attention for worsening symptoms. XR 08/31/24 3:56 PM XR/XR KUB IMPRESSION: Calcifications in the pelvis are likely vascular in nature. However, exclusion from the urinary tract is not possible on the basis of this examination. If there is clinical concern for ureteral calculi, unenhanced CT could be performed. Will advise if increased pain to g to ER for CT scan. I, Tate Box, am serving as a scribe to document services personally performed by Dr. Victoria, based on the patient's response to questions by provider and providers statements to me. documented in this encounter Miscellaneous Notes * Assessment & Plan Note - Tate Box - 08/31/2024 3:22 PM EDTAssociated Problem(s): Exercise counseling Exercise Recommendations: At least 150 minutes of moderate-intensity physical activity per week, or an equivalent combinationof moderate- and vigorous-intensity activity * Assessment & Plan Note - Tate Box - 08/31/2024 3:22 PM EDTAssociated Problem(s): Dietary counseling Dietary Recommendations: Fruits, vegetables, whole grains, protein foods, and fat-free or low-fat dairy products are healthychoices. Eat different types of protein foods in your diet. This can include seafood, lean meats, poultry, beans, peas, lentils, nuts, seeds, soy products, and eggs. Limit foods and beverages higher in added sugars, saturated fat, and sodium. * Assessment & Plan Note - Tate Box - 08/31/2024 3:22 PM EDTAssociated Problem(s): Pain in right lumbar region of back Suspect likely more so flank related, given associated symptoms and location of tenderness on exam.No back pain red flags. Prescribed Acetaminophen for pain, PRN. * Assessment & Plan Note - Tate Box - 08/31/2024 3:21 PM EDTAssociated Problem(s): Class 1 obesity due to excess calories with serious comorbidity and body mass index (BMI) of 34.0 to 34.9 in adult Discussed weight, diet, exercise with patient in relation to health conditions. Used motivational interviewing to illicit change talk and established initial goals with patient. * Assessment & Plan Note - Tate Box - 08/31/2024 3:19 PM EDTAssociated Problem(s): Right flank pain Unknown etiology. Intermittent initially over the past 3 weeks, but constant the last couple days. -ordered KUB 08/31/24 -ordered HFP, lipase, amylase, CBC and UA with culture 08/31/24 documented in this encounter Plan of Treatment Upcoming Encounters Date Type Department Care Team (Late st Contact Info) Description 09/15/2024 10:00 AM EDT Clinical Support [address] [address] 10/19/2024 11:15 AM EDT Office Visit [facility] [address] [facility] [place] [address] Annia, Tg, OPERATIONS RESEARCH ENGINEER [address] [facility] [place] [address] Scheduled Orders Name Type Priority Associated Diagnoses Orde r Schedule Hepatic Function Panel Lab Routine Right flank pain Expected: 08/31/2024 (Approximate), Expires: 08/31/2025 Lipase Lab Routine Right flank pain Expected: 08/31/2024, Expires: 08/31/2025 Amylase Lab Routine Right flank pain Expected: 08/31/2024 (Approximate), Expires: 08/31/2025 CBC auto differential Lab Routine Right flank pain Expected: 08/31/2024 (Approximate), Expires: 08/31/2025 Urinalysis, Complete, with Reflex to Culture Lab Routine Right flank pain Expected: 08/31/2024 (Approximate), Expires: 08/31/2025 documented as of this encounter Procedures Procedure Name Priority Date/Time Associated Diagnosis Comments XR KUB AND UPRIGHT 2 VIEWS Routine 08/31/2024 3:24 PM EDT Right flank pain documented in this encounter Results * XR KUB and Upright 2 Views (08/31/2024 3:24 PM EDT) Anatomical Region Laterality Modality Radiographic Cheryl ging 08/31/2024 3:24 PM EDT Narrative 08/31/2024 3:48 PM EDT ?[facility] ?[address] ?[place] [address] ?XRay Report ? Signed ? Patient: C[place],Brandt ?MR#: [id number] ?? [id number] ? : 1960 ?Acct:[id number] ? Age/Sex: 63 / M ?ADM Date: 04/02/25 ? Loc: HO.HHCX ? Attending Dr: Melisa Jacob MD ? Ordering Physician: Melisa Jacob MD ?? Date of Service: 08/31/24 ?? Procedure(s): XR KUB ?? Accession Number(s): [id number] ? cc: Melisa Jacob MD ? EXAMINATION: [...] DD/ 1524 ? TD/TT: 08/31/24 1530 ? [place]: ? Procedure Note Chastity Hastings - 08/31/[address] [address] XRay Report Signed Patient: Brandt [place]#: [id number] : 9Acct:[id number] Age/Sex: 63 / MADM Date: 08/31/24 Loc: HO.HHCX Attending Dr: Melisa Jacob MD Ordering Physician: Melisa Jacob MD Date of Service: 08/31/24 Procedure(s): XR KUB Accession Number(s): [id number] cc: Melisa Jacob MD EXAMINATION: XR ABDOMEN [...] Tushar Cordero MD 08/31/2024 03:45 PM EDT RP Dictated By: Tushar Cordero MD Signed By: <Electronically signed by Tushar Cordero MD in OV> 08/31/24 1545 DD/ 1524 TD/TT: 08/31/24 1530 [place]: us Melisa Jacob MD IMG XR PROCEDURES Final Re sult documented in this encounter Visit Diagnoses Diagnosis Pain in right lumbar region of back- Primary Right flank pain Abdominal pain, unspecified site Calcaneal bursitis (heel), right Class 1 obesity due to excess calories with serious comorbidity and body mass index (BMI) of 34.0 to 34.9 in adult Dietary counseling Dietary surveillance and counseling Exercise counseling documented in this encounter Additional Health Concerns Assessment Noted Time PHQ-9 Depression Total Score: 0 07/22/19 25 10:03 AM EST documented as of this encounter Care Teams Chief Hospital Administrator Relationship Specialty Start Date End Date [place] FNP [address] [place] [address] PCP - General Family Medicine 04/28/22 documented as of this encounter
--- OUTSIDE RECORDS SUMMARY | 2024-08-31 17:43 | XMS_ITS | Encounter Summary ---
Author Organization [employer] Address [address] [place] [address] [address] [place] [address] Care Team Providers Care Converter Operator Name Role Phone Tg Milner [facility] Primary Care Provider [phone] Reason for Visit * Reason Onset Date Comments Medication Question 05/06/2022 new script 05/06/2022 Encounter Details Date Type Department Care Team ([facility] st Contact Info) Description 05/06/2022 Telephone [facility] MEDICINE [address] [place], [place] [phone] [facility] [address] [place] [address] Medication Question; new script Social History Tobacco Use Types Packs/Day Years Used Date Smoking Tobacco: Never Assessed Sex and Gender Information Value Date Recorded Sex Assigned at Male 03/31/2022 10:20 AM EDT Legal Sex Male 10:20 AM EDT Gender Identity Male 03/31/2022 10:20 AM EDT Sexual Orientation Straight 03/31/2022 10 :20 AM EDT documented as of this encounter Miscellaneous Notes * Telephone Encounter - Henny Escalante RN - 05/14/2022 2:09 PM EST Please review message below and advise if Trulicity can be modified. * Telephone Encounter - Abbey Martin - 05/14/2022 1:40 PM EST Tc from pt calling requesting to see if we can send a script for Trulicity. Pt stated pharmacy has on back order Trulicity 4.5mg. Pharmacy has Trulicity .75, 1.5 or 3mg. PCP HAND TIER [place] * Telephone Encounter - Nany Gann - 05/06/2022 2:08 PM EST Tc from pt requesting active medications. Pt will be traveling to [place] as of May 19nd unsure on the exact date that will be returning. Stated will be returning after the new years but has yet to establish a date. PCP ESTELLA [place] documented in this encounter Plan of Treatment Upcoming Encounters Date Type Department Care Team (Late st Contact Info) Description 09/15/2024 10:00 AM EDT Clinical Support [facility] MEDICINE [address] [place] [address] 10/19/2024 11:15 AM EDT Office Visit [address] [address] Tg Milner FNP [address] [place] [address] documented as of this encounter Visit Diagnoses Diagnosis Type 2 diabetes mellitus without complication, without long-term current use of insulin ([facility]) documented in this encounter Care Teams Converter Operator Relationship Specialty Start Date End Date Tg Milner FNP [address] [place] [address] PCP - General Family Medicine 04/28/22 documented as of this encounter
--- OUTSIDE RECORDS SUMMARY | 2024-08-31 17:43 | XMS_ITS | Encounter Summary ---
Author Organization [employer] [facility] Address [address] [place] [address] Care Team Providers Care Head Of Science Name Role Phone Tg Milner RECRUITER Primary Care Provider [phone] Encounter Details Date Type Department Care Team (Late Contact Info) Description 06/03/[address] [address] Tg Milner [address] [address] Social History Tobacco Use Types Packs/Day Years [...] Description 09/15/2024 10:00 AM EDT Clinical Support [address] [address] 10/19/2024 11:15 AM EDT Office Visit [address] [address] Tg Milner FNP [address] [place] [address] documented as of this encounter Visit Diagnoses Not on filedocumented in this encounter Care Teams Head Of Science Relationship Specialty Start Date End Date Tg Milner FNP [address] [place] [address] PCP - General Family Medicine 04/28/22 documented as of this encounter
--- OUTSIDE RECORDS SUMMARY | 2024-08-31 17:43 | XMS_ITS | Encounter Summary ---
Author Organization [employer] Address [address] [facility] [address]t [place] [address] Care Team Providers Care Bus Girl Name Role Phone [place] [facility] Primary Care Provider [phone] Reason for Visit * Reason Comments Med Refill Encounter Details Date Type Department Care Team ([facility] st Contact Info) Description 07/01/2023 Refill [facility] [address] [place] [address] [facility] [address] [place] [address] Primary osteoarthritis of right knee Social History Tobacco Use Types Packs/Day Years Used Date Smoking Tobacco: Former Cigarettes Smokeless Tobacco: Never Alcohol Use Standard Drinks/Week Comments Never 0 (1 standard drink = 0.6 oz pur e alcohol) Depression Answer Date Recorded Patient Health Questionnaire-9 Score 0 11/24/2022 Housing Stability Answer Date Recorded What is your housing situation today? I have verna gee 03/19/[address] you li ve. Do you have problems with any of the following? None of the above 03/19/2023 Food Insecurity Answer Date Recorded Within the past 12 months, y ou worried that your food would run out before you got money to buy more: Never True 03/19/2023 Within the past 12 months,th e food you bought just didn't last and you didn't have enough money to get more: Never True Transportation Answer Date Recorded In the past 12 months, has l ack of transportation kept you from medical appts, meetings, work or from getting things needed for daily living? No 03/19/2023 Utilities Answer Date Recorded In the past 12 months, has t he electric, gas, oil or water company threatened to shut off services in your home? No 03/19/2023 Depression Answer Date Recorded Patient Health Questionnaire-2 [...] Description 09/15/2024 10:00 AM EDT Clinical Support [address] [address] 10/19/2024 11:15 AM EDT Office Visit [facility] [address] [place] [phone] Tg Milner FNP [address] [place] [address] documented as of this encounter Visit Diagnoses Diagnosis Primary osteoarthritis of right knee documented in this encounter Additional Health Concerns Assessment Noted Time PHQ-9 Depression Total Score: 0 11/25/19 23 3:32 PM EDT documented as of this encounter Care Teams Bus Girl Relationship Specialty Start Date End Date Tg Milner FNP [address] [place] [id number] PCP - General Family Medicine 04/28/22 documented as of this encounter
--- OUTSIDE RECORDS SUMMARY | 2024-08-31 17:43 | XMS_ITS | Encounter Summary ---
Author Organization [employer] [facility] Address [address] [place] [address] [address] [address] Care Team Providers Care Production Engineer Track Name Role Phone [place] [facility] Primary Care Provider [phone] Reason for Visit * Reason Comments Med Refill Encounter Details Date Type Department Care Team (Late st Contact Info) Description 12/25/[address] [facility] [address] [place] [phone] [place] [facility] [address] [place] [address] Type 2 diabetes mellitus without complication, without long-term current use of insulin ([facility]) Social History Tobacco Use Types Packs/Day Years [...] Description 09/15/2024 10:00 AM EDT Clinical Support [address] [address] 10/19/2024 11:15 AM EDT Office Visit [facility] [address] [place] [id number] Tg Milner FNP [address] [place] [address] documented as of this encounter Visit Diagnoses Diagnosis Type 2 diabetes mellitus without complication, without long-term current use of insulin ([facility]) documented in this encounter Additional Health Concerns Assessment Noted Time PHQ-9 Depression Total Score: 0 11/25/19 23 3:32 PM EDT documented as of this encounter Care Teams Production Engineer Track Relationship Specialty Start Date End Date Tg Milner FNP [address] [place] [address] PCP - General Family Medicine 04/28/22 documented as of this encounter
--- OUTSIDE RECORDS SUMMARY | 2024-08-31 17:43 | XMS_ITS | Encounter Summary ---
Author Organization [employer] Address [address] [facility] [address] [place] [address] Care Team Providers Care Surface Plate Finisher Name Role Phone Tg Milner [facility] Primary Care Provider [phone] Encounter Details Date Type Department Care Team ([facility] st Contact Info) Description 08/31/2024 Telephone [facility] [address] [place] [address] Melisa Jacob MD [address] [place] [address] Social History Tobacco Use Types Packs/Day Years [...] encounter Miscellaneous Notes * Telephone Encounter - Brit Mackey RN - 08/31/2024 4:04 PM EDT TC placed to pt regarding message below per Dr. Jacob. Pt verbalized understanding and in agreement. Pt inquiring on labs done today. Pt informed lab results can take up to a day or two. Pt verbalized understanding. No further questions or concerns expressed at this time. Pt to F/U as needed. [facility] Staff Gail assisting with translation. Please let pt know xray could not tell if there was a possible kidney stone in his system or not. Please advise increase fluids and if pain worsens, or does not improve, to go to the ER for CT scan to evaluate for stones. Thank you. * Telephone Encounter - Melisa Jacob MD - 08/31/2024 3:57 PM EDT Please let pt know xray could not tell if there was a possible kidney stone in his system or not. Please advise increase fluids and if pain worsens, or does not improve, to go to the ER for CT scan to evaluate for stones. Thank you. documented in this encounter Plan of Treatment Upcoming Encounters Date Type Department Care Team (Late st Contact Info) Description 09/15/2024 10:00 AM EDT Clinical Support [facility] [address] [place] [address] 10/19/2024 11:15 AM EDT Office Visit [facility] [address] [place] [address] Tg Milner FNP [address] [place] [address] documented as of this encounter Visit Diagnoses Not on filedocumented in this encounter Additional Health Concerns Assessment Noted Time PHQ-9 Depression Total Score: 0 07/22/19 25 10:03 AM EST documented as of this encounter Care Teams Surface Plate Finisher Relationship Specialty Start Date End Date [place] [address] PCP - General Family Medicine 04/28/22 documented as of this encounter
--- OUTSIDE RECORDS SUMMARY | 2024-08-31 17:43 | XMS_ITS | Encounter Summary ---
Author Organization [employer] Address [address] [facility] [address] 7[address] [place] [address] Care Team Providers Care Control Director Name Role Phone Tg Milner [facility] Primary Care Provider Encounter Details Date Type Department Care Team (Late st Contact Info) Description 04/17/2023 Abstract [facility] [address] [place] [address] [employer] Social History Tobacco Use Types Packs/Day Years [...] Description 09/15/2024 10:00 AM EDT Clinical Support [facility] [address] [place] [address] 10/19/2024 11:15 AM EDT Office Visit [facility] [address] [place] [address] Tg Milner FNP [address] [place] [address] documented as of this encounter Visit Diagnoses Not on filedocumented in this encounter Additional Health Concerns Assessment Noted Time PHQ-9 Depression Total Score: 0 11/25/19 23 3:32 PM EDT documented as of this encounter Care Teams Control Director Relationship Specialty Start Date End Date Tg Milner FNP [address] [place] [id number] PCP - General Family Medicine 04/28/22 documented as of this encounter
--- OUTSIDE RECORDS SUMMARY | 2024-08-31 17:43 | XMS_ITS | Encounter Summary ---
Author Organization [employer] [facility] Address [address] [place] [address] Care Team Providers Care Vegetable Washer Name Role Phone [place] [facility] Primary Care Provider [phone] Reason for Visit * Reason Comments Med Refill Encounter Details Date Type Department Care Team (Late st Contact Info) Description 06/18/2022 Refill [facility] [address] [place] [address] [facility] [address] [place] [address] Type 2 diabetes mellitus without complication, without long-term current use of insulin ([facility]) Social History Tobacco Use Types Packs/Day Years [...] Description 09/15/2024 10:00 AM EDT Clinical Support [facility] [address] [place] [phone] 10/19/2024 11:15 AM EDT Office Visit [facility] [address] [place] [address] [address] documented as of this encounter Visit Diagnoses Diagnosis Type 2 diabetes mellitus without complication, without long-term current use of insulin ([facility]) documented in this encounter Care Teams Vegetable Washer Relationship Specialty Start Date End Date Annia KRISTY Mas [address] [place] [phone] PCP - General Family Medicine 04/28/22 documented as of this encounter
[2024-08-31 18:06] LABS: MANUAL DIFF FLAG NO
[2024-08-31 18:17] LABS: Basophils Absolute Auto 0.1 X10*3/uL (0.0-0.2); Basophils Percent Auto 1.4 % (0-2); Eosinophils Absolute Auto 0.2 X10*3/uL (0.0-0.4); Eosinophils Percent Auto 3.5 % (0-4); Hemoglobin 12.8 g/dl (14.0-18.0); Imm Gran Abs Auto 0.03 X10*3/uL (0.00-0.03); Imm Gran Pct Auto 0.5 % (0.0-0.4); Lymphocytes Absolute Auto 1.6 X10*3/uL (1.2-4.9); Lymphocytes Percent Auto 27.4 % (20-40); Mean Corpuscular HGB Conc 33.7 g/dl (31.0-36.0); Mean Corpuscular Hemoglobin 28.8 pg (27.0-33.0); Mean Corpuscular Volume 85.4 fL (80.0-98.0); Mean Platelet Volume 10.8 fL (9.4-12.4); Monocytes Absolute Auto 0.7 X10*3/uL (0.1-1.2); Monocytes Percent Auto 11.8 % (2-11); Neutrophils Absolute Auto 3.3 x10*3/uL (2.0-8.3); Neutrophils Percent Auto 55.4 % (45-73); Platelet Count 243 X10*3/uL (160-400); Red Blood Count 4.45 X10*6/uL (4.60-5.80); Red Cell Distribution Width 14.4 % (11.0-16.0); White Blood Count 5.9 X10*3/uL (4.8-10.8)
[2024-08-31 18:26] LABS: Appearance Urine Clear; Color Urine Yellow; Glucose Urine UA >=1000 mg/dL (Negative); Leukocyte Esterase Urine Negative (Negative); Nitrite Urine Negative (Negative); PH 5.5 (5.0-9.0); Specific Gravity - Urine 1.025 (1.005-1.025); UMIC TRIGGER UACC YES; Urine Blood Trace (Negative); Urine Ketones Negative (Negative); Urine Protein 30 (1+) mg/dL (Neg-Trace)
[2024-08-31 18:33] LABS: Bacteria Urine None Seen (None Seen); Hyaline Casts Urine 0-2 /LPF (0-2); Squamous Epithelial Cell Urine 0-2 /HPF (0-2); WBC Urine 0-5 /HPF (0-5)
[2024-08-31 18:38] LABS: Alanine Aminotransferase 41 U/L (0-40); Alkaline Phosphatase 56 U/L (39-117); Amylase 85 U/L (28-100); Aspartate Amino Transferase 32 U/L (5-37); Bilirubin Direct 0.1 mg/dL (0.0-0.5); Bilirubin Total 0.3 mg/dL (0.0-1.0); Lipase 95 U/L (8-78); Total Protein 8.1 g/dL (6.5-8.0)
== END 2024-08-31 15:24 | disposition home or self-care (01) ==
LOC: HO.HHCX 15:23
PROVIDERS: Visit Provider Family Medicine
DX: R10.9 Unspecified abdominal pain (principal)
CPT/HCPCS: 36415; 74018; 80076; 81001; 82150; 83690; 85025

== ENCOUNTER → 2024-08-31 15:24 | Outpatient (BNV) | payer OTHER, SELFPAY | PROVIDERS: Visit Provider Radiology Diagnostic Radiology | DX: R10.9 Unspecified abdominal pain (principal) | CPT/HCPCS: 74018 ==

== ENCOUNTER 2024-08-31 15:47 | Outpatient (REF) | payer OTHER, SELFPAY | END 2024-08-31 15:48 | disposition home or self-care (01) | LOC: HO.HHCL 15:47 | PROVIDERS: Visit Provider Family Medicine | DX: Z13.89 Encounter for screening for other disorder (principal) ==

== ENCOUNTER 2024-09-01 15:28 | Emergency (ER) | payer OTHER, SELFPAY ==
--- NOTE | ~2024-09-01 | CT_ITS ---
CLINICAL HISTORY: elevated lipase, abdominal pain CT abdomen and pelvis with contrast Comparison: CT of the abdomen and pelvis from 12/06/2021 Findings: Mild ground-glass opacity in the right lower lobe (image 8 of series 6) may reflect mild pneumonitis. Mild rib deformities appear old/chronic. Lipid rich adenoma of the left adrenal gland measures 1.2 cm. Right adrenal gland is normal. No liver mass. The spleen is nonenlarged. Pancreas and gallbladder are unremarkable. No suspicious feature of the 1.2 cm cystic lesion of the right kidney additional small bilateral cystic lesions. No hydronephrosis. Mild perinephric stranding is redemonstrated. Small mesenteric and periaortic lymph nodes are likely reactive. No small bowel obstruction. Severe stool burden is present, including the cecum. The appendix is not definitively seen. Marked distention of the urinary bladder with multiple diverticula including right dome measuring 3 cm. Prostate gland measures 4.5 cm transversely and indents upon the distended urinary bladder. No free intraperitoneal air. Mild deformities of the pelvis appear old/chronic. Os acetabulum of the each hip. 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 Degenerative changes include lumbar facet arthropathy. Mild L5 height loss appears old. IMPRESSION: 1. Severe stool burden. No small bowel obstruction. 2. Marked distention of the urinary bladder. Differential considerations include bladder outlet obstruction. This document has been electronically signed by: Sukhdeep Garnica MD on 09/01/2024 21:53:44
[2024-09-01 15:40] VITALS: BP 156/99; PULSE 83; RESP 20; TEMP 36.7; O2SAT 97; BMI 33.4
--- NOTE | 2024-09-01 15:48 | ED.GENADULT ---
HPI - General Adult General Chief complaint: Abdominal Pain Stated complaint: abnormal labs/Anemia and pancreatitis Time Seen by Provider: 09/01/24 20:09 Source: patient, RN notes reviewed and old records reviewed Mode of arrival: ambulatory Limitations: no limitations History of Present Illness ED Provider: Carlitos HPI narrative: 63-year-old male presents for evaluation abdominal pain. Patient reports he has had abdominal pain for the last 3 days. He denies any nausea vomiting or diarrhea. He reports that he had routine labs performed at [facility] yesterday and was told that his ?lipase was high and I have pancreatitis. ? Patient states his pain is mostly right lower back and radiating around to his right lower abdomen He reports he has never had abdominal surgeries. He denies any difficulty urinating He has no upper abdominal pain or right upper abdominal pain His pain is worse with movement, especially in the morning Related Data Home Medications ?Medication ?Instructions ?Recorded ?Confirmed aspirin 81 mg tablet,delayed 81 mg PO DAILY 03/29/20 06/15/24 release (Adult Aspirin Regimen) gabapentin 800 mg tablet 800 mg PO BID 03/29/20 06/15/24 metformin 1,000 mg tablet 1,000 mg PO BID 03/29/20 06/15/24 metoprolol succinate 200 mg 200 mg PO DAILY 03/29/20 06/15/24 tablet,extended release 24 hr alcohol swabs (Alcohol Prep Pads) pad topical DAILY 08/29/21 06/15/24 blood sugar diagnostic (FreeStyle #10 ea 08/29/21 06/15/24 Lite Strips) lancets 33 gauge (TRUEplus Lancets) #100 ea 08/29/21 06/15/24 latanoprost 0.005 % eye drops 1 drp ophthalmic (eye) BEDTIME 08/29/21 06/15/24 melatonin 5 mg tablet 10 mg PO BEDTIME PRN insomnia 08/29/21 06/15/24 pantoprazole 20 mg tablet,delayed 20 mg PO DAILY 08/29/21 06/15/24 release amlodipine 10 mg tablet 10 mg PO DAILY 02/25/24 06/15/24 dulaglutide 4.5 mg/0.5 mL mg subcut 02/25/24 06/15/24 subcutaneous pen injector ([facility]) pravastatin 40 mg tablet 40 mg PO DAILY 02/25/24 06/15/24 empagliflozin 25 mg tablet 25 mg PO DAILY 06/15/24 06/15/24 (Jardiance) Previous Rx's ?Medication ?Instructions ?Recorded diphenoxylate-atropine 2.5 1 tab PO DAILY PRN diarrhea #4 tabs 01/21/21 mg-0.025 mg tablet (Lomotil) clotrimazole-betamethasone 1 1 appl topical BID 4 weeks #45 08/29/ %-0.05 % topical cream grams polyethylene glycol 3350 17 238 g PO ONCE laxative effect 1 10/20/23 gram/dose oral powder (Miralax) day #238 grams docusate sodium 250 mg capsule 250 mg PO BID PRN constipation #10 09/01/24 caps polyethylene glycol 3350 17 gram 17 g PO DAILY 2 weeks #30 ea 09/01/24 oral powder packet (Miralax) Allergies Allergy/AdvReac Type Severity Reaction Status Date / Time No Known Allergies Allergy Verified 09/01/24 15:46 [No Known Allergies*] Review of Systems Constitutional: Constitutional: Denies body ache(s), Denies chills, Denies fever(s) and Denies headache(s) Eyes: Eyes: Denies blurry vision ENT: Denies vertigo, Denies dizziness and Denies headache(s) Cardiovascular: Cardiovascular: Denies chest pain and Denies dyspnea Respiratory: Respiratory: Denies cough and Denies dyspnea Gastrointestinal: Gastrointestinal: Reports abdominal pain, Denies diarrhea, Denies loose stools, Denies nausea and Denies vomiting Musculoskeletal: Musculoskeletal: Reports back pain Integumentary/Breasts: Skin/Breast: Denies rash Neurologic: Denies vertigo, Denies dizziness and Denies headache(s) Psychiatric: Psychiatric: Denies anxiety [facility] Past Medical History Medical History Osteomyelitis DM2 (diabetes mellitus, type 2) Essential hypertension Right lumbar radiculopathy Arthritis of both knees Balanitis Type 2 diabetes mellitus with polyneuropathy Hyperlipidemia LDL goal <100 Obesity due to excess calories Type 2 diabetes mellitus with hyperglycemia, with long-term current use of insulin Surgical History H/O colonoscopy Hx of tonsillectomy Hx of appendectomy Family History Family History Father No problems noted. 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 Physical Exam ED Vital Signs: Vital Signs - 24 hr 09/01/24 15:40 09/01/24 20:03 Temperature 98.0 F 98.7 F Pulse Rate 83 72 Respiratory Rate 20 20 Blood Pressure 156/99 H 147/74 H Pulse Oximetry 97 98 Oxygen Delivery Method Room Air Room Air BMI result Body Mass Index 33.4 Const General: healthy appearing, comfortable, no acute distress, alert and awake Nutritional Appearance: well nourished Orientation/consciousness: patient oriented x3 HENMT Head: Yes normocephalic and Yes atraumatic Eyes Eyelids: Yes eyelids normal Conjunctivae: conjunctivae normal Sclerae: sclerae normal Corneas: corneas normal Pupils: Equal, round and reactive pupils present EOM: EOMs intact bilaterally Neck Neck: Yes full ROM Resp Effort & Inspection: normal respiratory effort, able to speak in complete sentences and not labored GI Palpation (GI): Soft to palpation, not firm, Tenderness to palpation present (GI) in the RLQ and suprapubicly, no guarding and not rigid Back/Spine/Pelvis Other: Tenderness in the right lumbar paraspinous region. Negative straight leg raise Skin General skin exam: elasticity normal Neuro General: patient oriented x3 Cranial nerves: Yes Equal, round and reactive pupils present and Yes Bilaterally intact EOM present Cognition (Neuro): normal cognition Extrem Other: Moving all extremities well without any obvious deformities Course Course Course Narrative: This is a rapid medical exam performed by Marilyn Franklin NP: Additional HPI, ROS, PE not included below will be deferred to primary provider. 09/01/24 15:48 Patient is a 63-year-old male with history of CKD, T2DM, HTN, HLD presenting to the emergency department stating that he had labs drawn at [facility], told they showed pancreatitis, complains of right sided abdominal pain. Denies n/v/d. Has not been taking his insulin. Plan: labs, UA Reevaluation(s) Reevaluation #1: Patient's CT scan shows a markedly distended urinary bladder vitals and severe stool burden. A bladder scan was ordered Time: 22:10 Reevaluation #2: I ordered a Anaya catheter as the patient urinated and post void bladder scan showed over 1400 cc of urine. This cleaned clear, yellow urine. The patient has some blood in the urine but no evidence of infection. I discussed results with him, he reports that he had a remote colonoscopy and was due for another 1 but has not yet had it. His CT scan shows severe constipation and will start him on polyethylene glycol and docusate sodium. We will leave the Anaya catheter in place and he will be referred to Urology. Time: 23:44 Medications Administered Discontinued Medications Generic Name Dose Route Start Last Admin Trade Name Freq PRN Reason Stop Dose Admin Iohexol 85 ml 09/01/24 21:16 09/01/24 21:16 Iohexol 350 Mg/Ml 100 Ml Infus..Btl IV 09/01/24 21:17 85 ml ONCE ONE Administration Morphine Sulfate 4 mg 09/01/24 20:44 09/01/24 20:52 Morphine Sulfate 4 Mg/Ml Cartridge IVPUSH 09/01/24 20:45 4 mg ONCE ONE Administration Protocol Ondansetron HCl 4 mg 09/01/24 20:44 09/01/24 20:52 Ondansetron Hcl 4 Mg/2 Ml Vial IVPUSH 09/01/24 20:45 4 mg ONCE ONE Administration Medical Decision Making Medical Decision Making [facility] Narrative: 63-year-old male presents for evaluation of back pain and abdominal pain. He has no nausea vomiting, symptoms started 3 days ago. He did have outpatient labs yesterday which showed no leukocytosis, a very mild anemia, without a left shift. He has a chronic kidney disease and his BUN and creatinine elevated to 29 and 1.48 respectively, these are consistent with his baseline. The patient's glucose is elevated to 145. His ALT was slightly above normal at 44 with a lipase of 143, the patient has no upper abdominal pain. He has no tenderness on exam, I doubt biliary disease or even acute pancreatitis as he has no upper abdominal pain or back pain. We will get a CT scan of the abdomen pelvis to evaluate for acute pancreatitis some imaging. Differential Diagnosis Differential Diagnoses: The differential diagnosis associated with the presentation includes Abdominal pain Muscle strain Radiculopathy Pancreatitis Acute appendicitis Biliary colic Obstructive uropathy Lab Data MDM Lab Attestation statement: I reviewed the patient's lab results. As above 09/01/24 15:56 09/01/24 15:56 Labs: Lab Results 09/01/24 09/01/24 09/01/24 Range/Units 15:56 16:00 23:17 WBC 6.8 (4.8-10.8) X10*3/uL RBC 4.46 L (4.60-5.80) X10*6/uL Hgb 12.8 L (14.0-18.0) g/dl Hct 38.2 L (42.0-52.0) % MCV 85.7 (80.0-98.0) fL MCH 28.7 (27.0-33.0) pg MCHC 33.5 (31.0-36.0) g/dl RDW 14.5 (11.0-16.0) % Plt Count 245 (160-400) X10*3/uL MPV 10.3 (9.4-12.4) fL Immature Gran % (Auto) 0.4 (0.0-0.4) % Neut % (Auto) 58.6 (45-73) % Lymph % (Auto) 24.9 (20-40) % [place] % (Auto) 12.5 H (2-11) % Eos % (Auto) 2.7 (0-4) % Baso % (Auto) 0.9 (0-2) % Lymph # (Auto) 1.7 (1.2-4.9) X10*3/uL [place] # (Auto) 0.9 (0.1-1.2) X10*3/uL Eos # (Auto) 0.2 (0.0-0.4) X10*3/uL Baso # (Auto) 0.1 (0.0-0.2) X10*3/uL Abs Immat Gran (auto) 0.03 (0.00-0.03) X10*3/uL Absolute Neuts (auto) 4.0 (2.0-8.3) x10*3/uL Absolute Nucleated RBC 0.000 (0.0-0.012) X10*3/uL Nucleated RBC % (auto) 0.0 (0.0-0.2) /100WBC VBG pH 7.35 (7.32-7.43) VBG pCO2 54 mmHg VBG pO2 42 mmHg VBG HCO3 30 H (22-26) mmol/L VBG O2 Saturation 68.0 % VBG Base Excess 3.5 mmol/L Sodium 142 (135-145) mmol/L Potassium 4.9 D (3.3-5.1) mmol/L Chloride 108 (96-108) mmol/L Carbon Dioxide 27 (22-29) mmol/L Anion Gap 12 (12-20) BUN 29 H (9-16) mg/dL Creatinine 1.48 H (0.5-1.4) mg/dL Estim Creat Clear Calc 60.5 Estimated GFR 48 Random Glucose 145 H (60-115) mg/dL Calcium 9.7 (8.4-10.2) mg/dL Magnesium 1.8 (1.6-2.6) mg/dL Total Bilirubin 0.3 (0.0-1.0) mg/dL AST 33 (5-37) U/L ALT 44 H (0-40) U/L Alkaline Phosphatase 63 (39-117) U/L Total Protein 8.1 H (6.5-8.0) g/dL Albumin 4.1 (3.5-5.0) g/dL Lipase 143 H (8-78) U/L Beta-Hydroxybutyrate 0.27 (0.02-0.27) mmol/L Urine Color Yellow Urine Appearance Clear Urine pH 6.0 (5.0-9.0) Ur Specific [place] >= 1.030 H (1.005-1.025) Urine Protein 30 (1+) H (Neg-Trace) mg/dL Urine Glucose (UA) >=1000 H (Negative) mg/dL Urine Ketones Negative (Negative) mg/dL Urine Blood Small (1+) H (Negative) Urine Nitrite Negative (Negative) Ur Leukocyte Esterase Negative (Negative) Urine RBC 6-10 H (0-2) /HPF Urine WBC 0-5 (0-5) /HPF Ur Squamous Epith Cells 0-2 (0-2) /HPF Urine Bacteria None Seen (None Seen) Hyaline Casts 0-2 (0-2) /LPF Independent Interpretation I performed an independent interpretation of an: CT Scan Interpretation: Agree with Radiology interpretation Radiology Impression Discussion of test interpretation with radiology: I have reviewed the radiologist's reading. Radiologist Impression: Findings: Mild ground-glass opacity in the right lower lobe (image 8 of series 6) may reflect mild pneumonitis. Mild rib deformities appear old/chronic. Lipid rich adenoma of the left adrenal gland measures 1.2 cm. Right adrenal gland is normal. No liver mass. The spleen is nonenlarged. Pancreas and gallbladder are unremarkable. No suspicious feature of the 1.2 cm cystic lesion of the right kidney additional small bilateral cystic lesions. No hydronephrosis. Mild perinephric stranding is redemonstrated. Small mesenteric and periaortic lymph nodes are likely reactive. No small bowel obstruction. Severe stool burden is present, including the cecum. The appendix is not definitively seen. Marked distention of the urinary bladder with multiple diverticula including right dome measuring 3 cm. Prostate gland measures 4.5 cm transversely and indents upon the distended urinary bladder. No free intraperitoneal air. Mild deformities of the pelvis appear old/chronic. Os acetabulum of the each hip. 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 Degenerative changes include lumbar facet arthropathy. Mild L5 height loss appears old. IMPRESSION: 1. Severe stool burden. No small bowel obstruction. 2. Marked distention of the urinary bladder. Differential considerations include bladder outlet obstruction. This document has been electronically signed by: Sukhdeep Garnica MD on 09/01/2024 21:53:44 Discharge Plan Discharge Clinical Impression: Constipation, Acute urinary retention Patient Disposition: Home, Self-Care Instructions: Constipation (ED), Urinary Retention in Men (ED) Additional Instructions: Your workup showed severe constipation as well as urinary retention. You need to follow-up with urology for the Anaya catheter removal You may follow-up with Dr. Jarrell at the number provided You also need to follow up with GI for a new colonoscopy. In the meantime, take MiraLax every night for the next 2 weeks and docusate sodium for the next 3 days Increase fluid and fiber intake in your diet Return for new or worsening symptoms Prescriptions: New polyethylene glycol 3350 [Miralax] 17 gram powder in packet 17 g PO DAILY 14 Days Qty: 30 0RF docusate sodium 250 mg capsule 250 mg PO BID PRN (Reason: constipation) Qty: 10 0RF No Action diphenoxylate-atropine [Lomotil] 2.5-0.025 mg tablet 1 tab PO DAILY PRN (Reason: diarrhea) Qty: 4 0RF metformin 1,000 mg tablet 1,000 mg PO BID gabapentin 800 mg tablet 800 mg PO BID metoprolol succinate 200 mg tablet extended release 24 hr 200 mg PO DAILY aspirin [Adult Aspirin Regimen] 81 mg tablet,delayed release (DR/EC) 81 mg PO DAILY melatonin 5 mg tablet 10 mg PO BEDTIME PRN (Reason: insomnia) pantoprazole 20 mg tablet,delayed release (DR/EC) 20 mg PO DAILY alcohol swabs [Alcohol Prep Pads] Pads, Medicated topical DAILY (DME) FreeStyle Lite Strips Strip See Rx Instructions Not Applicable DAILY Qty: 10 Rx Instructions: As directed latanoprost 0.005 % drops 1 drp ophthalmic (eye) BEDTIME (DME) lancets [TRUEplus Lancets] 33 gauge misc See Rx Instructions Not Applicable DAILY Qty: 100 Rx Instructions: As directed clotrimazole-betamethasone 1-0.05 % cream 1 appl topical BID 28 Days Qty: 45 0RF Rx Instructions: Apply thin coat 2 times per day polyethylene glycol 3350 [Miralax] 17 gram/dose powder 238 g PO ONCE 1 Days Qty: 238 0RF Rx Instructions: Take as directed by mouth the day before your procedure. amlodipine 10 mg tablet 10 mg PO DAILY Trulicity 4.5 mg/0.5 mL pen injector subcut pravastatin 40 mg tablet 40 mg PO DAILY Jardiance 25 mg tablet 25 mg PO DAILY Referrals: Moy Jarrell MD [Physician] - (urinary retention) Fiona Swift MD [Physician] - (severe constipation) Print Language: Chilean
[2024-09-01 15:59] LABS: MANUAL DIFF FLAG NO
[2024-09-01 16:02] LABS: Basophils Absolute Auto 0.1 X10*3/uL (0.0-0.2); Basophils Percent Auto 0.9 % (0-2); Eosinophils Absolute Auto 0.2 X10*3/uL (0.0-0.4); Eosinophils Percent Auto 2.7 % (0-4); Hematocrit 38.2 % (42.0-52.0); Hemoglobin 12.8 g/dl (14.0-18.0); Imm Gran Abs Auto 0.03 X10*3/uL (0.00-0.03); Imm Gran Pct Auto 0.4 % (0.0-0.4); Lymphocytes Absolute Auto 1.7 X10*3/uL (1.2-4.9); Lymphocytes Percent Auto 24.9 % (20-40); Mean Corpuscular HGB Conc 33.5 g/dl (31.0-36.0); Mean Corpuscular Hemoglobin 28.7 pg (27.0-33.0); Mean Corpuscular Volume 85.7 fL (80.0-98.0); Mean Platelet Volume 10.3 fL (9.4-12.4); Monocytes Absolute Auto 0.9 X10*3/uL (0.1-1.2); Monocytes Percent Auto 12.5 % (2-11); Neutrophils Percent Auto 58.6 % (45-73); Platelet Count 245 X10*3/uL (160-400); Red Blood Count 4.46 X10*6/uL (4.60-5.80); Red Cell Distribution Width 14.5 % (11.0-16.0); White Blood Count 6.8 X10*3/uL (4.8-10.8)
[2024-09-01 16:05] LABS: VBG Base Excess 3.5 mmol/L; VBG HCO3 30 mmol/L (22-26); VBG pCO2 54 mmHg; VBG pH 7.35 (7.32-7.43); VBG pO2 42 mmHg
[2024-09-01 16:06] LABS: Venous Blood Gas Refer to POC result
[2024-09-01 16:22] LABS: Alanine Aminotransferase 44 U/L (0-40); Albumin Level 4.1 g/dL (3.5-5.0); Alkaline Phosphatase 63 U/L (39-117); Anion Gap 12 (12-20); Aspartate Amino Transferase 33 U/L (5-37); Beta-Hydroxybutyrate 0.27 mmol/L (0.02-0.27); Bilirubin Total 0.3 mg/dL (0.0-1.0); Blood Urea Nitrogen 29 mg/dL (9-16); Calcium 9.7 mg/dL (8.4-10.2); Carbon Dioxide 27 mmol/L (22-29); Chloride 108 mmol/L (96-108); Creatinine Clr Calc Pharmacy 60.5; Estimated Glomerular Filt Rate 48; Glucose Random 145 mg/dL (60-115); Lipase 143 U/L (8-78); Magnesium 1.8 mg/dL (1.6-2.6); Potassium 4.9 mmol/L (3.3-5.1); Sodium 142 mmol/L (135-145); Total Protein 8.1 g/dL (6.5-8.0)
[2024-09-01 20:03] VITALS: BP 147/74; PULSE 72; RESP 20; TEMP 37.1; O2SAT 98
[2024-09-01] MEDS: Morphine Sulfate 4 MG/ML CARTRIDGE IVPUSH (20:52)
[2024-09-01] MEDS: ondansetron HCL 4 MG/2 ML VIAL IVPUSH (20:52)
[2024-09-01] MEDS: iohexoL 350 MG/ML 100 ML INFUS..BTL 85 ML IV (21:16)
--- OUTSIDE RECORDS SUMMARY | 2024-09-01 22:54 | XMS_ITS | Encounter Summary ---
Author Organization [employer] Address [address] [facility] [address] [place] [address] Care Team Providers Care Lockstitch Topstitcher Name Role Phone Tg Milner [facility] Primary Care Provider [phone] Encounter Details Date Type Department Care Team ([facility] st Contact Info) Description 08/31/2024 Telephone [facility]INE [address] [place] [address] Melisa Jacob MD [address] [place] [address] Social History Tobacco Use Types Packs/Day Years [...] this time. Pt to F/U as needed. [facility] Staff Gail assisting with translation. Please let [...] Description 09/15/2024 10:00 AM EDT Clinical Support [facility] [address] [place] [address] 10/19/2024 11:15 AM EDT Office Visit [facility] [address] [place] [address] Tg Milner FNP [address] [place] [address] documented as of this encounter Visit Diagnoses Not on filedocumented in this encounter Additional Health Concerns Assessment Noted Time PHQ-9 Depression Total Score: 0 07/22/19 25 10:03 AM EST documented as of this encounter Care Teams Lockstitch Topstitcher Relationship Specialty Start Date End Date [place] [address] PCP - General Family Medicine 04/28/22 documented as of this encounter
--- OUTSIDE RECORDS SUMMARY | 2024-09-01 22:54 | XMS_ITS | Encounter Summary ---
Author Organization [employer] Address [address] [facility] [address] [place] [address] Care Team Providers Care Utility Bill Collector Name Role Phone Tg Milner [facility] Primary Care Provider [phone] Encounter Details Date Type Department Care Team (Late st Contact Info) Description 04/17/2023 Abstract [facility]ICINE [address] [place] [address] Addis Hathaway Social History Tobacco Use Types [...] Description 09/15/2024 10:00 AM EDT Clinical Support [facility] [address] [place] [phone] 10/19/2024 11:15 AM EDT Office Visit [facility] [address] [place] [phone] Tg Milner FNP [address] [place] [address] documented as of this encounter Visit Diagnoses Not on filedocumented in this encounter Additional Health Concerns Assessment Noted Time PHQ-9 Depression Total Score: 0 11/25/19 23 3:32 PM EDT documented as of this encounter Care Teams Utility Bill Collector Relationship Specialty Start Date End Date Tg Milner FNP [address] [place] [phone] PCP - General Family Medicine 04/28/22 documented as of this encounter
--- OUTSIDE RECORDS SUMMARY | 2024-09-01 22:54 | XMS_ITS | Encounter Summary ---
Author Organization [employer] [facility] Address [address] [place] [address] [address] [address] Care Team Providers Care Prekindergarten Teacher Name Role Phone [facility] Primary Care Provider [phone] Reason for Visit * Reason Comments Med Refill Encounter Details Date Type Department Care Team (Late st Contact Info) Description 12/25/2022 Refill [facility] [address] [place] [phone] [facility] [address] [place] [address] Type 2 diabetes mellitus without complication, without long-term current use of insulin ([facility]) Social History Tobacco Use Types Packs/Day Years [...] Description 09/15/2024 10:00 AM EDT Clinical Support [address] [address] 10/19/2024 11:15 AM EDT Office Visit [facility] [address] [place] [phone] Tg Milner FNP [address] [place] [address] documented as of this encounter Visit Diagnoses Diagnosis Type 2 diabetes mellitus without complication, without long-term current use of insulin ([facility]) documented in this encounter Additional Health Concerns Assessment Noted Time PHQ-9 Depression Total Score: 0 11/25/19 23 3:32 PM EDT documented as of this encounter Care Teams Prekindergarten Teacher Relationship Specialty Start Date End Date Tg Milner FNP [address] [place] [address] PCP - General Family Medicine 04/28/22 documented as of this encounter
--- OUTSIDE RECORDS SUMMARY | 2024-09-01 22:54 | XMS_ITS | Encounter Summary ---
Author Organization [employer] Address [address] [facility] 7t [place] [address] Care Team Providers Care Forensic Computer Examiner Name Role Phone [facility] Primary Care Provider [phone] Reason for Visit * Reason Comments Med Refill Encounter Details Date Type Department Care Team ([facility] st Contact Info) Description 07/01/2023 Refill [facility] [address] [place] [address] [facility] [address] [place] [address] Primary osteoarthritis of right knee Social History [...] Description 09/15/2024 10:00 AM EDT Clinical Support [address] [address] 10/19/2024 11:15 AM EDT Office Visit [facility] [address] [place] [phone] Tg Milner FNP [address] [place] [phone] documented as of this encounter Visit Diagnoses Diagnosis Primary osteoarthritis of right knee documented in this encounter Additional Health Concerns Assessment Noted Time PHQ-9 Depression Total Score: 0 11/25/19 23 3:32 PM EDT documented as of this encounter Care Teams Forensic Computer Examiner Relationship Specialty Start Date End Date Tg Milner FNP [address] [place] [phone] PCP - General Family Medicine 04/28/22 documented as of this encounter
--- OUTSIDE RECORDS SUMMARY | 2024-09-01 22:54 | XMS_ITS | Encounter Summary ---
Author Organization [employer] [facility] Address [address] [place] [address] [address] [place] [address] Care Team Providers Care Bank Sales And Service Manager Name Role Phone [facility] Primary Care Provider [phone] Reason for Visit * Reason Comments Med Refill Encounter Details Date Type Department Care Team (Late Contact Info) Description 12/22/2022 Refill [facility] [address] [place], [place] [phone] [facility] [address] [place] [address] Primary hypertension Social History Tobacco Use Types [...] Description 09/15/2024 10:00 AM EDT Clinical Support [facility] [address] [place] [phone] 10/19/2024 11:15 AM EDT Office Visit [facility] [address] [facility] [place] [address] Tg Milner FNP [address] [facility] [place] [address] documented as of this encounter Visit Diagnoses Diagnosis Primary hypertension Unspecified essential hypertension documented in this encounter Additional Health Concerns Assessment Noted Time PHQ-9 Depression Total Score: 0 11/25/19 23 3:32 PM EDT documented as of this encounter Care Teams Bank Sales And Service Manager Relationship Specialty Start Date End Date Tg Milner FNP [address] [place] [address] PCP - General Family Medicine 04/28/22 documented as of this encounter
--- OUTSIDE RECORDS SUMMARY | 2024-09-01 22:54 | XMS_ITS | Clinical Summary ---
Author Organization [employer] Address [address] [place] [address] 7[address] [place] [address] Care Team Providers Care Audit Specialist Name Role Phone Tg Milner [facility] Primary Care Provider Allergies No known active allergies Medications cyclobenzaprine [...] polyneuropathy associated with type 2 diabetes mellitus ([facility]) TEST BLOOD SUGAR ONCE DAILY IN THE [...] complication, without long-term current use of insulin ([facility]) Inject 4.5 mg under the skin 1 (one) time per week. 4 each Active Jardiance 25 MGIndications:Typ e 2 diabetes mellitus without complication, without long-term current use of insulin ([facility]) TAKE 1 TABLET BY MOUTH EVERY MORNING [...] complication, without long-term current use of insulin ([facility]) TAKE 2 TABLETS BY MOUTH TWICE DAILY [...] unspecified whether stage 3a or 3b CKD ([facility]) Inject 6 Units under the skin at bedtime. 3 mL 12 025 2025 Active insulin pen needle 32G x 4 mm miscIndications:T ype 2 diabetes mellitus with stage 3 chronic kidney disease, with long-term current use of insulin, unspecified whether stage 3a or 3b CKD ([facility]) Use as instructed 100 each 12 025 2025 Active Continuous Glucose Sensor (FreeStyle May 2 Sensor) miscIndications:T ype 2 diabetes mellitus with stage 3 chronic kidney disease, with long-term current use of insulin, unspecified whether stage 3a or 3b CKD ([facility]) Use as directed 2 each 3 025 Active Continuous Glucose Taxonomist (FreeStyle May 2 [place]) deviceIndications :Type 2 diabetes mellitus with stage 3 chronic kidney disease, with long-term current use of insulin, unspecified whether stage 3a or 3b CKD ([facility]) Use as directed 1 each 025 Active [...] insufficiency 06/14/2018 Overview (11/26/2022): ?? Followed by [facility] vascular ?? Compression stockings ?? Pain managed with gabapeentin 800mg t.i.d ?? Followed by [facility] wound care for venous stasis ulcer Assessment [...] Foot Exam: 07/2023--RISK 1 Eye Exam: Through [facility]. UTD Statin: Yes ASA: Yes GISELA/ARB: Yes [...] Foot callus 01/27/2018 09/01/2022 Hyperlipidemia associated wi th type 2 diabetes mellitus 01/13/2017 11/26/2022 Tooth disorder 01/13/2017 09/01/2022 Peripheral vascular disease 01/13/2017 11/26/2022 Hypertension 03/15/2012 11/26/2022 Encounters Date Type Department Care Team Description 09/01/2024 Orders Only GENERIC EXTERNAL DATA DEPARTMENT Provider, Generic External Data 09/01/2024 Telephone [facility] MEDICINE [address] [place] [phone] Nicole Kaur RN Results 08/31/2024 3:00 PM EDT Office Visit [facility] [address] [place] [phone] Melisa Jacob MD Pain in right lumbar region of back (Primary Dx); Right flank pain; Calcaneal bursitis (heel), right; Class 1 obesity due to excess calories with serious comorbidity and body mass index (BMI) of 34.0 to 34.9 in adult; Dietary counseling; Exercise counseling 08/31/[address] [address] Melisa Jacob MD 08/31/[address] [address] [place] F[place] Primary hypertension 08/23/2024 Orders Only [facility] External Provider, [facility] 08/16/2024 1:00 PM EDT Clinical Support [address] [address] Heidi Silva, LANA Type 2 diabetes mellitus with other circulatory complication, without long-term current use of insulin ([facility]) 08/16/2024 Travel 08/04/2024 Refill [facility] [address] [place], [place] [phone] Tg Milner FNP Primary osteoarthritis of right knee 07/25/[address] [address] Tg Milner FNP CGM PA 07/22/2024 10:15 AM EST Office Visit [address] [address] Tg Milner FNP Type 2 diabetes mellitus with stage 3 chronic kidney disease, with long-term current use of insulin, unspecified whether stage 3a or 3b CKD ([facility]) (Primary Dx); Essential hypertension; Dietary counseling; Exercise counseling; Class 1 obesity due to excess calories with serious comorbidity and body mass index (BMI) of 34.0 to 34.9 in adult 07/22/2024 Travel 07/21/[address] [address] AnniaTg dalal FNP chart prep 07/07/2024 Refill [facility] [address] [place] [address] [phone] Jaclyn Hutton FNP from Last 3 Months [...] Description 09/15/2024 10:00 AM EDT Clinical Support [facility] MEDICINE [address] [place] [phone] 10/19/2024 11:15 AM EDT Office Visit [facility] MEDICINE [address] [place] [address] [facility], [facility] [address] [place] [address] Health Maintenance Due Date Last Done Comments [...] Procedure Name Priority Date/Time Associated Diagnosis Comments CT ABDOMEN PELVIS W CONTRAST Routine 09/01/2024 9:53 PM EDT VENOUS BLOOD GAS Routine 09/01/2024 4:00 PM EDT BETA-HYDROXYBUTYRATE Routine 09/01/2024 3:56 PM EDT LIPASE Routine 09/01/2024 3:56 PM EDT MAGNESIUM Routine 09/01/2024 3:56 PM EDT COMPREHENSIVE METABOLIC PANEL Routine 09/01/2024 3:56 PM EDT CBC WITH AUTO DIFFERENTIAL Routine 09/01/2024 3:56 PM EDT URINALYSIS, COMPLETE, WITH REFLEX TO CULTURE Routine 08/31/2024 3:30 PM EDT Right flank pain CBC WITH AUTO DIFFERENTIAL Routine 08/31/2024 3:30 PM EDT Right flank pain AMYLASE Routine 08/31/2024 3:30 PM EDT Right flank pain LIPASE Routine 08/31/2024 3:30 PM EDT Right flank pain HEPATIC FUNCTION PANEL Routine 3:30 PM EDT Right flank pain XR KUB AND UPRIGHT 2 VIEWS Routine [...] Recently Relevant to Health Maintenance Results * CT Abdomen Pelvis w/ Contrast (09/01/2024 9:53 PM EDT) Anatomical Region Laterality Modality Body, Pelvis, Abdomen Computed T omography 09/01/2024 9:53 PM EDT Narrative 09/01/2024 9:56 PM EDT ? [facility] ?[address] ?[place] [address] ? CT Scan Report ? Signed ? Patient: Brandt Nelson ?MR#: MM ?? [id number] ? : 1960 ?Acct:[id number] ? Age/Sex: 63 / M ?ADM Date: 09/01/24 ? Loc: HO.ED ? Attending Dr: ? Ordering Physician: Peter Urbina ?? Date of Service: 09/01/24 ?? Procedure(s): CT abdomen pelvis w IV con ?? Accession Number(s): [id number] ? cc: [facility]; Peter Urbina ? Report Number: ?? [id number]: Total DLP = ??768.00 mGy-cm ? CLINICAL HISTORY: elevated lipase, abdominal pain ? CT abdomen and pelvis with contrast ? Comparison: CT of the abdomen and pelvis from 12/06/2021 ? Findings: ?? Mild ground-glass opacity in the right lower lobe (image 8 of series 6) ?? may reflect mild pneumonitis. ?? Mild rib deformities appear old/chronic. ?? Lipid rich adenoma of the left adrenal gland measures 1.2 cm. Right ?? adrenal gland is normal. No liver mass. The spleen is nonenlarged. ?? Pancreas and gallbladder are unremarkable. No suspicious feature of the ?? 1.2 cm cystic lesion of the right kidney additional small bilateral cystic ?? lesions. No hydronephrosis. Mild perinephric stranding is redemonstrated. ?? Small mesenteric and periaortic lymph nodes are likely reactive. No small ?? bowel obstruction. Severe stool burden is present, including the cecum. ?? The appendix is not definitively seen. ?? Marked distention of the urinary bladder with multiple diverticula ?? including right dome measuring 3 cm. Prostate gland measures 4.5 cm ?? transversely and indents upon the distended urinary bladder. No free ?? intraperitoneal air. Mild deformities of the pelvis appear old/chronic. Os ?? acetabulum of the each hip. With moderate to severe osteoarthritis of the ?? hips. Degenerative changes include lumbar facet arthropathy. Mild L5 ?? height loss appears old. ? IMPRESSION: ?? 1. Severe stool burden. No small bowel obstruction. ?? 2. Marked distention of the urinary bladder. Differential considerations ?? include bladder outlet obstruction. ? This document has been electronically signed by: Sukhdeep Garnica MD on ?? 09/01/2024 21:53:44 ? Dictated By: ?Sukhdeep Garnica MD ? Signed By: ?<Electronically signed by Sukhdeep Garnica MD in OV> ? 09/01/242154 ? DD/ 52 ? TD/TT: 09/01/242152 ? Edge Drummer: ? Procedure Note Donmark anthonyter, Image - 09/01/[address] [place] [address] [address] Scan Report Signed Patient: Brandt NelsonMR#: [id number] : 9Acct:[id number] Age/Sex: 63 / MADM Date: 09/01/24 Loc: HO.ED Attending Dr: Ordering Physician: Peter Urbina Date of Service: 09/01/24 Procedure(s): CT abdomen pelvis w IV con Accession Number(s): [id number] cc: [facility]; Peter Urbina Report Number: [id number]: Total DLP = 768.00 mGy-cm CLINICAL HISTORY: elevated lipase, abdominal pain CT abdomen and pelvis with contrast Comparison: CT of the abdomen and pelvis from 12/06/2021 Findings: Mild ground-glass opacity in the right lower lobe (image 8 of series 6) may reflect mild pneumonitis. Mild rib deformities appear old/chronic. Lipid rich adenoma of the left adrenal gland measures 1.2 cm. Right adrenal gland is normal. No liver mass. The spleen is nonenlarged. Pancreas and gallbladder are unremarkable. No suspicious feature of the 1.2 cm cystic lesion of the right kidney additional small bilateral cystic lesions. No hydronephrosis. Mild perinephric stranding is redemonstrated. Small mesenteric and periaortic lymph nodes are likely reactive. No small bowel obstruction. Severe stool burden is present, including the cecum. The appendix is not definitively seen. Marked distention of the urinary bladder with multiple diverticula including right dome measuring 3 cm. Prostate gland measures 4.5 cm transversely and indents upon the distended urinary bladder. No free intraperitoneal air. Mild deformities of the pelvis appear old/chronic. Os acetabulum of the each hip. 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 Degenerative changes include lumbar facet arthropathy. Mild L5 height loss appears old. IMPRESSION: 1. Severe stool burden. No small bowel obstruction. 2. Marked distention of the urinary bladder. Differential considerations include bladder outlet obstruction. This document has been electronically signed by: Sukhdeep Garnica MD on 09/01/2024 21:53:44 Dictated By: Sukhdeep Garnica MD Signed By: <Electronically signed by Sukhdeep Garnica MD in OV> 09/01/242154 DD/ 52 TD/TT: 09/01/242152 Edge Drummer: [facility] External Provider IMG CT PROCEDURES Final Result * (ABNORMAL) VENOUS BLOOD GAS (09/01/2024 4:00 PM EDT) VBG pH 7.35 7.32 - 7.43 [facility] Comment:METER #: [id number] additional_comment: Cb toucheg VBG PCO2 54 mmHg [facility] Comment:METER #: [id number] additional_comment: Cb toucheg VBG PO2 42 mmHg [facility] Comment:METER #: [id number] additional_comment: Cb toucheg VBG Base Excess 3.5 mmol/L [facility] Comment:METER #: [id number] additional_comment: Cb toucheg VBG HCO3 30(H) 22 - 26 mmol/L [facility] Comment:METER #: [id number] additional_comment: Cb toucheg O2 Sat, Braulio 68.0 % [facility] Comment:METER #: [id number] additional_comment: Cb toucheg 09/01/2024 4:00 PM EDT 09/01/2024 4:05 PM EDT us Generic External Data Provider LAB BLOOD ORDERAB LES Final Result Performing Organization Address City/[facility]/ZIP Co de Phone Number [facility] [address] [place] [address] [phone] * Beta-Hydroxybutyrate (09/01/2024 3:56 PM EDT) Pathologist [facility] Beta-Hydroxybut yrate 0.27 0.02 - 0.27 mmol/L [facility] 09/01/2024 3:56 PM EDT 09/01/2024 3:58 PM EDT Generic External Data Provider LAB BLOOD ORDERAB LES Final Result Performing Organization Address [facility] Co de Phone Number [facility] [address] [place] [phone] * (ABNORMAL) CBC auto differential (09/01/2024 3:56 PM EDT) Only the most recent of2 resultswithin the time period is included. Pathologist [facility] White Blood Count 6.8 4.8 - 10.8 X10*3/uL [facility] Red Blood Count 4.46(L) 4.60 - 5.80 X10*6/uL [facility] Hemoglobin 12.8(L) 14.0 - 18.0 g/dl [facility] Hematocrit 38.2(L) 42.0 - 52.0 % [facility] Mean Corpuscular Volume 85.7 80.0 - 98.0 fL [facility] Mean Corpuscular Hemoglobin 28.7 27.0 - 33.0 pg [facility] Mean Corpuscular HGB Conc 33.5 31.0 - 36.0 g/dl [facility] Red Cell Distribution Width 14.5 11.0 - 16.0 % [facility] Platelet Count 245 160 - 400 X10*3/uL [facility] Mean Platelet Volume 10.3 9.4 - 12.4 fL [facility] Neutrophils Percent Auto 58.6 45 - 73 % [facility] Imm Gran Pct Auto 0.4 0.0 - 0.4 % [facility] Lymphocytes Percent Auto 24.9 20 - 40 % [facility] Monocytes Percent Auto 12.5(H) 2 - 11 % [facility] Eosinophils Percent Auto 2.7 0 - 4 % [facility] Basophils Percent Auto 0.9 0 - 2 % [facility] NRBC Pct Auto 0.0 0.0 - 0.2 /100WBC [facility] Neutrophils Absolute Auto 4.0 2.0 - 8.3 x10*3/uL [facility] Imm Gran Abs Auto 0.03 0.00 - 0.03 X10*3/uL [facility] Lymphocytes Absolute Auto 1.7 1.2 - 4.9 X10*3/uL [facility] Monocytes Absolute Auto 0.9 0.1 - 1.2 X10*3/uL [facility] Eosinophils Absolute Auto 0.2 0.0 - 0.4 X10*3/uL [facility] Basophils Absolute Auto 0.1 0.0 - 0.2 X10*3/uL [facility] NRBC Abs Auto 0.000 0.0 - 0.012 X10*3/uL [facility] 09/01/2024 3:56 PM EDT 09/01/2024 3:58 PM EDT us Generic External Data Provider LAB BLOOD ORDERAB LES Final Result [facility] [address] [place], [place] [phone] * Magnesium (09/01/2024 3:56 PM EDT) Magnesium 1.8 1.6 - 2.6 mg/dL [facility] 09/01/2024 3:56 PM EDT 09/01/2024 3:58 PM EDT us Generic External Data Provider LAB BLOOD ORDERAB LES Final Result Performing Organization Address City/[facility]/ZIP Co de Phone Number [facility] [address] [place] [address] [phone] * (ABNORMAL) Lipase (09/01/2024 3:56 PM EDT) Only the most recent of2 resultswithin the time period is included. Lipase 143(H) 8 - 78 U/L [facility] 09/01/2024 3:56 PM EDT 09/01/2024 3:58 PM EDT Generic External Data Provider LAB BLOOD ORDERAB LES Final Result Performing Organization Address [facility]/ZIP Co de Phone Number [facility] [address] [place] [address] [phone] * (ABNORMAL) Comprehensive Metabolic Panel (09/01/2024 3:56 PM EDT) Sodium 142 135 - 145 mmol/L [facility] Potassium 4.9 3.3 - 5.1 mmol/L [facility] Chloride 108 96 - 108 mmol/L [facility] Carbon Dioxide 27 22 - 29 mmol/L [facility] Anion Gap 12 12 - 20 [facility] Urea Nitrogen (BUN) 29(H) 9 - 16 mg/dL [facility] Creatinine, Serum 1.48(H) 0.5 - 1.4 mg/dL [facility] Creatinine Clr Calc Pharmacy 60.5 [facility] Comment:eGFR (calculated fro m the MDRD study equation) and eCrCl(calculated from the Cockcroft-Gault equation) are based ondifferent parameters and may not yield comparable results.If eCrCl result is absurd, please check patient'sheight/weight. Estimated Glomerular Filt Rate 48 [facility] Comment:Chronic Kidney Disea se: Estimated GFR < 60 mL/min/1.91v1Wgruhg Kidney Disease: Estimated GFR < 15 mL/min/1.73m2 Glucose 145(H) 60 - 115 mg/dL [facility] Calcium 9.7 8.4 - 10.2 mg/dL [facility] Bilirubin, Total 0.3 0.0 - 1.0 mg/dL [facility] Aspartate Amino Transferase 33 5 - 37 U/L [facility] Alanine Aminotransferase 44(H) 0 - 40 U/L [facility] Total Protein 8.1(H) 6.5 - 8.0 g/dL [facility] Albumin Level 4.1 3.5 - 5.0 g/dL [facility] Alkaline Phosphatase 63 39 - 117 U/L [facility] 09/01/2024 3:56 PM EDT 09/01/2024 3:58 PM EDT us Generic External Data Provider LAB BLOOD ORDERAB LES Final Result [facility] [address] [place] [phone] * (ABNORMAL) Urinalysis, Complete, with Reflex to Culture (08/31/2024 3:30 PM EDT) Color Urine Yellow [facility] Appearance Urine Clear [facility] PH 5.5 5.0 - 9.0 [facility] Glucose Urine UA >=1000(A) Negative mg/dL [facility] Urine Blood Trace(A) Negative [facility] Specific [place] - Urine 1.025 1.005 - 1.025 [facility] Urine Protein 30 (1+)(A) Neg-Trace mg/dL [facility] Urine Ketones Negative Negative mg/dL [facility] Nitrite Urine Negative Negative [facility] Leukocyte Esterase Urine Negative Negative [facility] RBC Urine 6-10(A) 0 - 2 /HPF [facility] Urine WBC 0-5 0 - 5 /HPF [facility] Urine Squamous Epithelial Cell 0-2 0 - 2 /HPF [facility] Urine Bacteria None Seen None Seen [facility] Hyaline Casts, Urine 0-2 0 - 2 /LPF [facility] Urine 08/31/2024 3:30 PM EDT 08/31/2024 6:01 PM EDT Narrative [facility] - 08/31/2024 6:36 PM EDT Urine, Clean Catch Melisa Jacob MD LAB URINE ORDERABLES Final Result Performing Organization Address City/[facility] Co de Phone Number [facility] [address] [place] [phone] * Amylase (08/31/2024 3:30 PM EDT) Amylase 85 28 - 100 U/L [facility] Blood Venous blood specimen / Unknown 08/31/2024 3:30 PM EDT 08/31/2024 6:01 PM EDT Melisa Jacob MD LAB BLOOD ORDERABLES Final Result Performing Organization Address [facility] de Phone Number [facility] [address] [place] [phone] * (ABNORMAL) Hepatic Function Panel (08/31/2024 3:30 PM EDT) Bilirubin, Total 0.3 0.0 - 1.0 mg/dL [facility] Bilirubin, Direct 0.1 0.0 - 0.5 mg/dL [facility] Aspartate Amino Transferase 32 5 - 37 U/L [facility] Alanine Aminotransferase 41(H) 0 - 40 U/L [facility] Total Protein 8.1(H) 6.5 - 8.0 g/dL [facility] Albumin Level 4.0 3.5 - 5.0 g/dL [facility] Alkaline Phosphatase 56 39 - 117 U/L [facility] Blood Venous blood specimen / Unknown 08/31/2024 3:30 PM EDT 08/31/2024 6:01 PM EDT us Melisa Jacob MD LAB BLOOD ORDERABLES Final Result [facility] [address] [facility] [place] [address] [phone] * XR KUB and Upright 2 Views (08/31/2024 3:24 PM EDT) Anatomical Region Laterality Modality Radiographic Cheryl ging 08/31/2024 3:24 PM EDT Narrative 08/31/2024 3:48 PM EDT ?[facility] ?[address] ?[place] [address] ?XRay Report ? Signed ? Patient: Cade Whaley,Brandt ?MR#: MM ?? [id number] ? : 1960 ?Acct:[id number] ? Age/Sex: 63 / M ?ADM Date: 08/31/24 ? Loc: HO.HHCX ? Attending Dr: Melisa Jacob MD ? Ordering Physician: Melisa Jacob MD ?? Date of Service: 08/31/24 ?? Procedure(s): XR KUB ?? Accession Number(s): [id number] ? cc: Melisa Jacob MD ? EXAMINATION: [...] DD/ 1524 ? TD/TT: 08/31/24 1530 ? Edge Drummer: ? Procedure Note Donotuseinterpreter, Image - 08/31/[address] [address] XRay Report Signed Patient: Brandt NelsonMR#: MM [id number] : 9Acct:[id number] Age/Sex: 63 / MADM Date: 08/31/24 Loc: HO.HHCX Attending Dr: Melisa Jacbo MD Ordering Physician: Melisa Jacob MD Date of Service: 08/31/24 Procedure(s): XR KUB Accession Number(s): [id number] cc: Melisa Jacob MD EXAMINATION: XR ABDOMEN [...] MD 08/31/2024 03:45 PM EDT Dictated By: Tushar Cordero MD Signed By: <Electronically signed by Tushar Cordero MD in OV> 08/31/24 1545 DD/ 1524 TD/TT: 08/31/24 1530 Edge Drummer: us Melisaemy Jacob MD IMG XR PROCEDURES Final Re sult * US KELLY COMPLETE (08/24/2024 4:45 PM EDT) Anatomical Region Laterality Modality Abdomen Ultrasound 08/24/2024 4:45 PM EDT Narrative 08/24/2024 4:46 PM EDT ? [facility] ?[address] ?[place] [address] ? Ultrasound Report ? Signed ? Patient: Cade Whaley,Brandt ?MR#: MM ?? [id number] ? : 1960 ?Acct:[id number] ? Age/Sex: 63 / M ?ADM Date: 08/23/24 ? Loc: HO.US ? Attending Dr: Nieves Cabrera MD ? Ordering Physician: Nieves Cabrera MD ?? Date of Service: 08/23/24 ?? Procedure(s): US KELLY complete ?? Accession Number(s): [id number] ? cc: Nieves Cabrera MD; [facility] ? CLINICAL HISTORY: TOE PRESSURES, NON HEALING [...] signed by Blayne Chamberlain MD in OV> ?08/24/246 ? DD/ 1645 ? TD/TT: 08/24/245 ? Edge Drummer: ? Procedure Note Darling, Image - 08/24/[address] [address] Ultrasound Report Signed Patient: Brandt Nelson#: MM [id number] : 9Acct:[id number] Age/Sex: 63 / MADM Date: 08/23/24 Loc: HO. Attending Dr: Nieves Cabrera MD Ordering Physician: Nieves Cabrera MD Date of Service: 08/23/24 Procedure(s): US KELLY complete Accession Number(s): [id number] cc: Nieves Cabrera MD; [facility] CLINICAL HISTORY: TOE PRESSURES, NON HEALING WOUND [...] in OV> 08/24/24 1646 DD/ 1645 TD/TT: 08/24/241644 Edge Drummer: us [facility] External Provider IMG US PROCEDURES Final Result * (ABNORMAL) POCT HGB A1C (07/22/2024 10:04 AM EST) Hemoglobin A1C 8.2(A) 4.0 - 6.0 % QC Media Lot # [id number] Lot# Expiration Date Blood 07/22/2024 10:0 4 AM EST [facility] POINT OF CARE TEST ENTER/EDIT ORDERABLES Final Result * POCT Glucose (07/22/2024 10:04 AM EST) Glucose Blood, POC 145 60 - 200 mg/dL QC Media Lot # [id number] Lot# Expiration Date Blood Capillary blood specimen / Unknown 07/22/2024 10:04 AM EST [facility] POINT OF CARE TEST ENTER/EDIT ORDERABLES Final Result * Albumin, Random Urine W/Creatinine (01/22/2024 10:30 AM EDT) Creatinine, Urine 64.84 mg/dL [facility] Microalbumin Urine 10.0 mg/L [facility] Microalbum Creatinine Ratio Ur 15.4 <30 ug/mg cr [facility] Comment:Albumin/Creatinine R atio Reference Ranges: Normal: < 30 ug/mg creatinine Microalbuminuria: 30 - 300 ug/mg creatinineClinical Albuminuria: > 300 ug/mg creatinine Urine 01/22/2024 10:3 0 AM EDT 01/22/2024 11:05 AM EDT [facility] LAB URINE ORDERABLES Final Re sult [facility] [address] [place] [phone] * (ABNORMAL) Lipid Panel, Standard (01/22/2024 10:21 AM EDT) Triglycerides 291(H) <150 mg/dL [facility] Comment:Desirable Triglyceri de: less than 150 mg/dLBorderline High Triglyceride 150-199 mg/dLHigh Triglyceride: 200-499 mg/dLVery High Triglyceride: greater than or equal to 5OO mg/dL Cholesterol 166 <200 mg/dL [facility] Comment:Desirable Cholestero l: less than 200 mg/dLBorderline High Cholesterol: 200-239 mg/dLHigh Cholesterol: greater than 239 mg/dL LDL Cholesterol Calculated 77 <100 mg/dL [facility] Comment:Desirable LDL: less than 100 mg/dLNear Optimal/Above Optimal LDL: 110- 129 mg/dLBorderline High LDL: 130-159 mg/dLHigh LDL: 160-189 mg/dLVery High LDL: greater than or equal to 190 mg/dL HDL Cholesterol 31(L) >40 mg/dL [facility] Comment:Desirable HDL: great er than 40 mg/dL Note: This HDL assay may give artificially low results in patients with liver disease. Blood Venous blood specimen / Unknown 01/22/2024 10:21 AM EDT 01/22/2024 11:05 AM EDT [facility] LAB BLOOD ORDERABLES Final Re sult Performing Organization Address [facility] Co de Phone Number [facility] [address] [place] [phone] * Hepatitis C Antibody with Reflex to HCV, RNA, Quantitative, Real-Time PCR (09/01/2022 2:59 PM EDT) Hepatitis C Antibody NON-REACT DARY NON-REACT DARY [place] TYT ([employer] Young [employer]) Index 0.09 <1.00 [place] [employer] Comment: HCV antibody was non-reactive. There is no laboratory evidence of HCV infection. In most cases, no further action is required. However, if recent HCV exposure is suspected, a test for HCV RNA (test code 86614) is suggested. For additional information please refer to http://[email or web address] (This link is being provided for informational/ educational purposes only.) Blood Venous blood specimen / Unknown 09/01/2022 2:59 PM EDT 09/01/2022 2:59 PM EDT [facility] LAB BLOOD ORDERABLES Final Re sult Performing Organization Address City/[facility]/ZIP Co de Phone Number [employer] [address] [place] [address], [place] [address] [facility] [address] [place] [address] from Last 3 Months or Most Recently Relevant to Health Maintenance Insurance [facility] Care Teams Audit Specialist Relationship Specialty Start Date End Date [facility] [address] [place] [address] PCP - General Family Medicine 04/28/22
--- OUTSIDE RECORDS SUMMARY | 2024-09-01 22:54 | XMS_ITS | Encounter Summary ---
Author Organization [employer] Address 75 [facility] 7t [place] [address] Care Team Providers Care Scrap Iron Loader Name Role Phone Tg Milner [facility] Primary Care Provider [phone] Encounter Details Date Type Department Care Team (Late st Contact Info) Description 09/01/2024 Orders Only GENERIC EXTERNAL DATA DEPARTMENT Provider, Generic External Data Social History Tobacco Use Types Packs/Day Years [...] Clinical Support [facility] [address] [place] [address] 10/19/2024 11:15 AM EDT Office Visit [facility] [address] [place] [phone] [facility] [address] [place] [address] documented as of this encounter Procedures Procedure Name Priority Date/Time Associated Diagnosis Comments CT ABDOMEN PELVIS W CONTRAST Routine 09/01/2024 9:53 PM EDT VENOUS BLOOD GAS Routine 09/01/2024 4:00 PM EDT BETA-HYDROXYBUTYRATE Routine 09/01/2024 3:56 PM EDT CBC WITH AUTO DIFFERENTIAL Routine 09/01/2024 3:56 PM EDT MAGNESIUM Routine 09/01/2024 3:56 PM EDT LIPASE Routine 09/01/2024 3:56 PM EDT COMPREHENSIVE METABOLIC PANEL Routine 09/01/2024 3:56 PM EDT documented in this encounter Results * CT Abdomen Pelvis w/ Contrast (09/01/2024 9:53 PM EDT) Anatomical Region Laterality Modality Body, Pelvis, Abdomen Computed T omography 09/01/2024 9:53 PM EDT Narrative 09/01/2024 9:56 PM EDT ? [facility] ?[address] ?[place] [address] ? CT Scan Report ? Signed ? Patient: Cade Mosinee,Brandt ?MR#: MM ?? [id number] ? : 1960 ?Acct:[id number] ? Age/Sex: 63 / M ?ADM Date: 09/01/24 ? Loc: HO.ED ? Attending Dr: ? Ordering Physician: Peter Urbina ?? Date of Service: 09/01/24 ?? Procedure(s): CT abdomen pelvis w IV con ?? Accession Number(s): [id number] ? cc: [facility]; Peter Urbina ? Report Number: ?? [id number]: Total DLP = ??768.00 mGy-cm ? CLINICAL [...] ? DD/ 52 ? TD/TT: 09/01/242152 ? Animal Husbandry Manager: ? Procedure Note Donotuseinterpreter, Image - 09/01/[address] [address] [address] Scan Report Signed Patient: Brandt NelsonMR#: [id number] : 9Acct:[id number] Age/Sex: 63 / MADM Date: 09/01/24 Loc: HO.ED Attending Dr: Ordering Physician: Peter Urbina Date of Service: 09/01/24 Procedure(s): CT abdomen pelvis w IV con Accession Number(s): [id number] cc: [facility]; Peter Urbina Report Number: [id number]: Total DLP = 768.00 mGy-cm CLINICAL HISTORY: [...] in OV> 09/01/242154 DD/ 52 TD/TT: 09/01/242152 Animal Husbandry Manager: [employer] External Provider IMG CT PROCEDURES Final Result * (ABNORMAL) VENOUS BLOOD GAS (09/01/2024 4:00 PM EDT) VBG pH 7.35 7.32 - 7.43 [facility] Comment:METER #: [id number] additional_comment: Cb toucheg VBG PCO2 54 mmHg [facility] Comment:METER #: [id number] additional_comment: Cb toucheg VBG PO2 42 mmHg [facility] Comment:METER #: [id number] additional_comment: Cb toucheg VBG Base Excess 3.5 mmol/L [facility] Comment:METER #: [id number] additional_comment: Cb toucheg VBG HCO3 30(H) 22 - 26 mmol/L [facility] Comment:METER #: [id number] additional_comment: Cb toucheg O2 Sat, Braulio 68.0 % [facility] Comment:METER #: [id number] additional_comment: Cb toucheg 09/01/2024 4:00 PM EDT 09/01/2024 4:05 PM EDT Generic External Data Provider LAB BLOOD ORDERAB LES Final Result [facility] [address] [place] [phone] * Beta-Hydroxybutyrate (09/01/2024 3:56 PM EDT) Pathologist [facility] Beta-Hydroxybut yrate 0.27 0.02 - 0.27 mmol/L [facility] 09/01/2024 3:56 PM EDT 09/01/2024 3:58 PM EDT Generic External Data Provider LAB BLOOD ORDERAB LES Final Result Performing Organization Address [facility]/ZIP Co de Phone Number [facility] [address] [place] [phone] * (ABNORMAL) Lipase (09/01/2024 3:56 PM EDT) [facility] Lipase 143(H) 8 - 78 U/L [facility] 09/01/2024 3:56 PM EDT 09/01/2024 3:58 PM EDT Generic External Data Provider LAB BLOOD ORDERAB LES Final Result Performing Organization Address [facility] Co de Phone Number [facility] [address] [place] [phone] * Magnesium (09/01/2024 3:56 PM EDT) [facility] Magnesium 1.8 1.6 - 2.6 mg/dL [facility] 09/01/2024 3:56 PM EDT 09/01/2024 3:58 PM EDT Generic External Data Provider LAB BLOOD ORDERAB LES Final Result Performing Organization Address [facility] Co de Phone Number [facility] [address] [place] [phone] * (ABNORMAL) Comprehensive Metabolic Panel (09/01/2024 3:56 PM EDT) Sodium 142 135 - 145 mmol/L [facility] Potassium 4.9 3.3 - 5.1 mmol/L [facility] Chloride 108 96 - 108 mmol/L [facility] Carbon Dioxide 27 22 - 29 mmol/L [facility] Anion Gap 12 12 - 20 [facility] Urea Nitrogen (BUN) 29(H) 9 - 16 mg/dL [facility] Creatinine, Serum 1.48(H) 0.5 - 1.4 mg/dL [facility] Creatinine Clr Calc Pharmacy 60.5 [facility] Comment:eGFR (calculated fro m the MDRD study equation) and eCrCl(calculated from the Cockcroft-Gault equation) are based ondifferent parameters and may not yield comparable results.If eCrCl result is absurd, please check patient'sheight/weight. Estimated Glomerular Filt Rate 48 [facility] Comment:Chronic Kidney Disea se: Estimated GFR < 60 mL/min/1.27n3Ukvlnx Kidney Disease: Estimated GFR < 15 mL/min/1.73m2 Glucose 145(H) 60 - 115 mg/dL [facility] Calcium 9.7 8.4 - 10.2 mg/dL [facility] Bilirubin, Total 0.3 0.0 - 1.0 mg/dL [facility] Aspartate Amino Transferase 33 5 - 37 U/L [facility] Alanine Aminotransferase 44(H) 0 - 40 U/L [facility] Total Protein 8.1(H) 6.5 - 8.0 g/dL [facility] Albumin Level 4.1 3.5 - 5.0 g/dL [facility] Alkaline Phosphatase 63 39 - 117 U/L [facility] 09/01/2024 3:56 PM EDT 09/01/2024 3:58 PM EDT us Generic External Data Provider LAB BLOOD ORDERAB LES Final Result [facility] [address] [place] [phone] [phone] * (ABNORMAL) CBC auto differential (09/01/2024 3:56 PM EDT) White Blood Count 6.8 4.8 - 10.8 X10*3/uL [facility] Red Blood Count 4.46(L) 4.60 - 5.80 X10*6/uL [facility] Hemoglobin 12.8(L) 14.0 - 18.0 g/dl [facility] Hematocrit 38.2(L) 42.0 - 52.0 % [facility] Mean Corpuscular Volume 85.7 80.0 - 98.0 fL [facility] Mean Corpuscular Hemoglobin 28.7 27.0 - 33.0 pg [facility] Mean Corpuscular HGB Conc 33.5 31.0 - 36.0 g/dl [facility] Red Cell Distribution Width 14.5 11.0 - 16.0 % [facility] Platelet Count 245 160 - 400 X10*3/uL [facility] Mean Platelet Volume 10.3 9.4 - 12.4 fL [facility] Neutrophils Percent Auto 58.6 45 - 73 % [facility] Imm Gran Pct Auto 0.4 0.0 - 0.4 % [facility] Lymphocytes Percent Auto 24.9 20 - 40 % [facility] Monocytes Percent Auto 12.5(H) 2 - 11 % [facility] Eosinophils Percent Auto 2.7 0 - 4 % [facility] Basophils Percent Auto 0.9 0 - 2 % [facility] NRBC Pct Auto 0.0 0.0 - 0.2 /100WBC [facility] Neutrophils Absolute Auto 4.0 2.0 - 8.3 x10*3/uL [facility] Imm Gran Abs Auto 0.03 0.00 - 0.03 X10*3/uL [facility] Lymphocytes Absolute Auto 1.7 1.2 - 4.9 X10*3/uL [facility] Monocytes Absolute Auto 0.9 0.1 - 1.2 X10*3/uL [facility] Eosinophils Absolute Auto 0.2 0.0 - 0.4 X10*3/uL [facility] Basophils Absolute Auto 0.1 0.0 - 0.2 X10*3/uL [facility] NRBC Abs Auto 0.000 0.0 - 0.012 X10*3/uL [facility] 09/01/2024 3:56 PM EDT 09/01/2024 3:58 PM EDT us Generic External Data Provider LAB BLOOD ORDERAB LES Final Result [facility] [address] [place] [phone] [phone] documented in this encounter Visit Diagnoses Not on filedocumented in this encounter Additional Health Concerns Assessment Noted Time PHQ-9 Depression Total Score: 0 07/22/19 25 10:03 AM EST documented as of this encounter Care Teams Scrap Iron Loader Relationship Specialty Start Date End Date Tg Milner FNP [address] [place] [phone] PCP - General Family Medicine 04/28/22 documented as of this encounter
--- OUTSIDE RECORDS SUMMARY | 2024-09-01 22:54 | XMS_ITS | Encounter Summary ---
Author Organization [employer] Address 75 [facility] 7t [place] [address] Care Team Providers Care Sociology Faculty Member Name Role Phone Tg Milner [facility] Primary Care Provider [phone] Reason for Visit * Reason Onset Date Comments Results 09/01/2024 Encounter Details Date Type Department Care Team ([facility] [address] Contact Info) Description 09/01/2024 Telephone [facility] [address] [place] [address] Nicole Kaur RN Results Social History Tobacco Use Types Packs/Day Years [...] encounter Miscellaneous Notes * Telephone Encounter - Nicole Kaur RN - 09/01/2024 2:34 PM EDT TC placed to pt with S pool lifeguard #[id number] Oscar's message below regarding labsand the findings showing evidence of possible pancreatitis. PT highly advised to be seen in the ED to rule this out. Pt confirms that he will present himself to [facility] this evening. Pt advised that he should do this before the weekend. RN will postpone this encounter to check on status of ED visit. ----- Message from Melisa Jacob MD sent at 09/01/2024 2:18 PM EDT ----- Pt was sent to ER for possible kidney stones yesterday. I am not sure if he went. He inquired aboutlabs. Labs show new anemia and slight inflammation of liver and labs that need to r/o pancreatitis.Please call pt and make sure he went to ER, if not, he needs to go and if so, please get any reports including if he had CT scan. Thank you. documented in this encounter Plan of Treatment Upcoming Encounters Date Type Department Care Team (Late st Contact Info) Description 09/15/2024 10:00 AM EDT Clinical Support [address] [address] 10/19/2024 11:15 AM EDT Office Visit [address] [place] [address] Tg Milner FNP [address] [place] [address] documented as of this encounter Visit Diagnoses Not on filedocumented in this encounter Additional Health Concerns Assessment Noted Time PHQ-9 Depression Total Score: 0 07/22/19 25 10:03 AM EST documented as of this encounter Care Teams Sociology Faculty Member Relationship Specialty Start Date End Date Tg Milner FNP [address] [place] [address] PCP - General Family Medicine 04/28/22 documented as of this encounter
--- OUTSIDE RECORDS SUMMARY | 2024-09-01 22:54 | XMS_ITS | Encounter Summary ---
Author Organization [employer] Address 75 [facility] 7 [place] [address] Care Team Providers Care Integrity Assessor Name Role Phone [place], [facility] Primary Care Provider [phone] Reason for Visit * Reason Comments Med Refill Encounter Details Date Type Department Care Team ([facility] st Contact Info) Description 08/31/2024 Refill [facility] [address] [place] [address] [place] [facility] [address] [place] [address] Primary hypertension Social History Tobacco Use Types [...] Description 09/15/2024 10:00 AM EDT Clinical Support [address] [address] 10/19/2024 11:15 AM EDT Office Visit [address] [address] Tg Milner [facility] [address] [place] [address] documented as of this encounter Visit Diagnoses Diagnosis Primary hypertension Unspecified essential hypertension documented in this encounter Additional Health Concerns Assessment Noted Time PHQ-9 Depression Total Score: 0 07/22/19 25 10:03 AM EST documented as of this encounter Care Teams Integrity Assessor Relationship Specialty Start Date End Date Tg Milner FNP [address] [place] [phone] PCP - General Family Medicine 04/28/22 documented as of this encounter
--- OUTSIDE RECORDS SUMMARY | 2024-09-01 22:54 | XMS_ITS | Encounter Summary ---
Author Organization [email or web address] Address 75 [facility] 7t [place] [address] Care Team Providers Care County Library Director Name Role Phone Tg Milner BUGGY OPERATOR Primary Care Provider [phone] Encounter Details Date Type Department Care Team (Late st Contact Info) Description 08/31/2024 3:00 PM EDT Office Visit [facility] [address] [place] [address] Melisa Jacob MD [address] [place] [address] Pain in right lumbar region of back [...] Description 09/15/2024 10:00 AM EDT Clinical Support [address] [address] 10/19/2024 11:15 AM EDT Office Visit [facility] [address] [place] [address] AnniaTg dalal, BUGGY OPERATOR [address] [place] [address] documented as of this encounter Procedures Procedure Name Priority Date/Time Associated Diagnosis Comments URINALYSIS, COMPLETE, WITH REFLEX TO CULTURE Routine 08/31/2024 3:30 PM EDT Right flank pain CBC WITH AUTO DIFFERENTIAL Routine 08/31/2024 3:30 PM EDT Right flank pain LIPASE Routine 08/31/2024 3:30 PM EDT Right flank pain AMYLASE Routine 08/31/2024 3:30 PM EDT Right flank pain HEPATIC FUNCTION PANEL Routine 08/31/2024 3:30 PM EDT Right flank pain XR KUB AND UPRIGHT 2 VIEWS Routine 08/31/2024 3:24 PM EDT Right flank pain documented in this encounter Results * (ABNORMAL) Urinalysis, Complete, with Reflex to Culture (08/31/2024 3:30 PM EDT) Color Urine Yellow [facility] Appearance Urine Clear [facility] PH 5.5 5.0 - 9.0 [facility] Glucose Urine UA >=1000(A) Negative mg/dL [facility] Urine Blood Trace(A) Negative [facility] Specific [place] - Urine 1.025 1.005 - 1.025 [facility] Urine Protein 30 (1+)(A) Neg-Trace mg/dL [facility] Urine Ketones Negative Negative mg/dL [facility] Nitrite Urine Negative Negative [facility] Leukocyte Esterase Urine Negative Negative [facility] RBC Urine 6-10(A) 0 - 2 /HPF [facility] Urine WBC 0-5 0 - 5 /HPF [facility] Urine Squamous Epithelial Cell 0-2 0 - 2 /HPF [facility] Urine Bacteria None Seen None Seen [facility] Hyaline Casts, Urine 0-2 0 - 2 /LPF [facility] Urine 08/31/2024 3:30 PM EDT 08/31/2024 6:01 PM EDT Narrative [facility] - 08/31/2024 6:36 PM EDT Urine, Clean Catch Melisa Jacob MD LAB URINE ORDERABLES Final Result [facility] [address] [place] [phone] * (ABNORMAL) CBC auto differential (08/31/2024 3:30 PM EDT) White Blood Count 5.9 4.8 - 10.8 X10*3/uL [facility] Red Blood Count 4.45(L) 4.60 - 5.80 X10*6/uL [facility] Hemoglobin 12.8(L) 14.0 - 18.0 g/dl [facility] Hematocrit 38.0(L) 42.0 - 52.0 % [facility] Mean Corpuscular Volume 85.4 80.0 - 98.0 fL [facility] Mean Corpuscular Hemoglobin 28.8 27.0 - 33.0 pg [facility] Mean Corpuscular HGB Conc 33.7 31.0 - 36.0 g/dl [facility] Red Cell Distribution Width 14.4 11.0 - 16.0 % [facility] Platelet Count 243 160 - 400 X10*3/uL [facility] Mean Platelet Volume 10.8 9.4 - 12.4 fL [facility] Neutrophils Percent Auto 55.4 45 - 73 % [facility] Imm Gran Pct Auto 0.5(H) 0.0 - 0.4 % [facility] Lymphocytes Percent Auto 27.4 20 - 40 % [facility] Monocytes Percent Auto 11.8(H) 2 - 11 % [facility] Eosinophils Percent Auto 3.5 0 - 4 % [facility] Basophils Percent Auto 1.4 0 - 2 % [facility] NRBC Pct Auto 0.0 0.0 - 0.2 /100WBC [facility] Neutrophils Absolute Auto 3.3 2.0 - 8.3 x10*3/uL [facility] Imm Gran Abs Auto 0.03 0.00 - 0.03 X10*3/uL [facility] Lymphocytes Absolute Auto 1.6 1.2 - 4.9 X10*3/uL [facility] Monocytes Absolute Auto 0.7 0.1 - 1.2 X10*3/uL [facility] Eosinophils Absolute Auto 0.2 0.0 - 0.4 X10*3/uL [facility] Basophils Absolute Auto 0.1 0.0 - 0.2 X10*3/uL [facility] NRBC Abs Auto 0.000 0.0 - 0.012 X10*3/uL [facility] Blood Venous blood specimen / Unknown 08/31/2024 3:30 PM EDT 08/31/2024 6:01 PM EDT Melisa Jacob MD LAB BLOOD ORDERABLES Final Result Performing Organization Address [facility]/ZIP Co de Phone Number [facility] [address] [place] [phone] [phone] * Amylase (08/31/2024 3:30 PM EDT) Amylase 85 28 - 100 U/L [facility] Blood Venous blood specimen / Unknown 08/31/2024 3:30 PM EDT 08/31/2024 6:01 PM EDT Melisa Jacob MD LAB BLOOD ORDERABLES Final Result Performing Organization Address [facility]/ZIP Co de Phone Number [facility] [address] [place] [address] [phone] * (ABNORMAL) Lipase (08/31/2024 3:30 PM EDT) Lipase 95(H) 8 - 78 U/L [facility] Blood Venous blood specimen / Unknown 08/31/2024 3:30 PM EDT 08/31/2024 6:01 PM EDT Melisa Jacob MD LAB BLOOD ORDERABLES Final Result Performing Organization Address City/[facility]/ZIP Co de Phone Number [facility] [address] [place] [phone] * (ABNORMAL) Hepatic Function Panel (08/31/2024 3:30 PM EDT) Bilirubin, Total 0.3 0.0 - 1.0 mg/dL [facility] Bilirubin, Direct 0.1 0.0 - 0.5 mg/dL [facility] Aspartate Amino Transferase 32 5 - 37 U/L [facility] Alanine Aminotransferase 41(H) 0 - 40 U/L [facility] Total Protein 8.1(H) 6.5 - 8.0 g/dL [facility] Albumin Level 4.0 3.5 - 5.0 g/dL [facility] Alkaline Phosphatase 56 39 - 117 U/L [facility] Blood Venous blood specimen / Unknown 08/31/2024 3:30 PM EDT 08/31/2024 6:01 PM EDT Melisa Jacob MD LAB BLOOD ORDERABLES Final Result Performing Organization Address City/[facility]/ZIP Co de Phone Number [facility] [address] [place] [phone] * XR KUB and Upright 2 Views (08/31/2024 3:24 PM EDT) Anatomical Region Laterality Modality Radiographic Cheryl ging 08/31/2024 3:24 PM EDT Narrative 08/31/2024 3:48 PM EDT ?[facility] ?[address] ?[place] [address] ?XRay Report ? Signed ? Patient: Cade Drew,Brandt ?MR#: MM ?? [id number] ? : 1960 ?Acct:[id number] ? Age/Sex: 63 / M ?ADM Date: 08/31/24 ? Loc: HO.HHCX ? Attending Dr: Melisa aJcob MD ? Ordering Physician: Melisa Jacob MD ?? Date of Service: 08/31/24 ?? Procedure(s): XR KUB ?? Accession Number(s): [id number] ? cc: Melisa Jacob MD ? EXAMINATION: [...] DD/ 1524 ? TD/TT: 08/31/24 1530 ? Wafer Fabrication Operator: ? Procedure Chastity Gutiérrez - 08/31/2024 [facility] [address] [place] [address] XRay Report Signed Patient: Yolande Nelson#: [id number] : 9Acct:[id number] Age/Sex: 63 / MADM Date: 08/31/24 Loc: HO.HHCX Attending Dr: Melisa Jacob MD Ordering Physician: Melisa Jacob MD Date of Service: 08/31/24 Procedure(s): XR KUB Accession Number(s): [id number] cc: Melisa Jacob MD EXAMINATION: XR ABDOMEN [...] 08/31/24 1545 DD/ 1524 TD/TT: 08/31/24 1530 Wafer Fabrication Operator: Melisa Jacob MD IMG XR PROCEDURES Final [...] documented as of this encounter Care Teams County Library Director Relationship Specialty Start Date End Date Tg Milner FNP [address] [place] [phone] PCP - General Family Medicine 04/28/22 documented as of this encounter
--- OUTSIDE RECORDS SUMMARY | 2024-09-01 22:55 | XMS_ITS | Encounter Summary ---
Author Organization [employer] [facility] Address [address] [place] [address] Care Team Providers Care Forensic Ballistics Expert Name Role Phone Tg Milner CLIENT SUCCESS DIRECTOR Primary Care Provider [phone] Encounter Details Date Type Department Care Team (Late Contact Info) Description 06/03/[address] [address] Tg Milner [address] [address] Social History Tobacco Use Types Packs/Day Years [...] Description 09/15/2024 10:00 AM EDT Clinical Support [address] [address] 10/19/2024 11:15 AM EDT Office Visit [address] [address] Tg Milner FNP [address] [place] [address] documented as of this encounter Visit Diagnoses Not on filedocumented in this encounter Care Teams Forensic Ballistics Expert Relationship Specialty Start Date End Date Tg Milner FNP [address] [place] [phone] PCP - General Family Medicine 04/28/22 documented as of this encounter
--- OUTSIDE RECORDS SUMMARY | 2024-09-01 22:55 | XMS_ITS | Encounter Summary ---
Author Organization [email or web address] [facility] Address [address] [place] [id number] Care Team Providers Care Wreath Inspector Name Role Phone Garland [facility] Primary Care Provider [phone] Reason for Visit * Reason Comments Med Refill Encounter Details Date Type Department Care Team (Late st Contact Info) Description 06/18/[address] [facility] [address] [place] [phone] [facility] [address] [place] [address] Type 2 diabetes mellitus without complication, without long-term current use of insulin ([facility]) Social History Tobacco Use Types Packs/Day Years [...] Description 09/15/2024 10:00 AM EDT Clinical Support [facility] [address] [place] [phone] 10/19/2024 11:15 AM EDT Office Visit [facility] [address] [place] [phone] [address] documented as of this encounter Visit Diagnoses Diagnosis Type 2 diabetes mellitus without complication, without long-term current use of insulin ([facility]) documented in this encounter Care Teams Wreath Inspector Relationship Specialty Start Date End Date Annia KRISTY Mas [address] [place] [phone] PCP - General Family Medicine 04/28/22 documented as of this encounter
--- OUTSIDE RECORDS SUMMARY | 2024-09-01 22:55 | XMS_ITS | Encounter Summary ---
Author Organization [facility] [facility] Address [address] [place] [address] Care Team Providers Care Biztalk Software Developer Name Role Phone Annia Tg [facility] Primary Care Provider [phone] Encounter Details Date Type Department Care Team (Late st Contact Info) Description 07/10/2022 Orders Only [facility] [address] [place] [phone] Chante Mackey LPN Social History Tobacco Use [...] Description 09/15/2024 10:00 AM EDT Clinical Support [address] [address] 10/19/2024 11:15 AM EDT Office Visit [facility] [address] [place] [phone] Tg Milner [address] [address] documented as of this encounter Visit Diagnoses Not on filedocumented in this encounter Care Teams Biztalk Software Developer Relationship Specialty Start Date End Date Tg Milner FNP [address] [place] [phone] PCP - General Family Medicine 04/28/22 documented as of this encounter
--- OUTSIDE RECORDS SUMMARY | 2024-09-01 22:55 | XMS_ITS | Encounter Summary ---
Author Organization [employer] Address [address] [place] [address] [address] [place] [address] Care Team Providers Care Automobile Upholstery Trim Installer Name Role Phone Tg Milner [facility] Primary Care Provider [phone] Reason for Visit * Reason Onset Date Comments Medication Question 05/06/2022 new script 05/06/2022 Encounter Details Date Type Department Care Team ([facility] st Contact Info) Description 05/06/2022 Telephone [facility] [address] [place], [place] [phone] [facility] [address] [place] [address] Medication Question; new script Social History Tobacco [...] has Trulicity .75, 1.5 or 3mg. PCP SEWAGE SCREEN OPERATOR [place] * Telephone Encounter - Nany Gann - 05/06/2022 2:08 PM EST Tc from pt requesting active medications. Pt will be traveling to [place] as of May 19nd unsure on the exact date that will be returning. Stated will be returning after the new years but has yet to establish a date. PCP ESTELLA [place] documented in this encounter Plan of Treatment Upcoming Encounters Date Type Department Care Team (Late st Contact Info) Description 09/15/2024 10:00 AM EDT Clinical Support [facility] [address] [place] [phone] 10/19/2024 11:15 AM EDT Office Visit [address] [address] Tg Milner FNP [address] [place] [phone] documented as of this encounter Visit Diagnoses Diagnosis Type 2 diabetes mellitus without complication, without long-term current use of insulin ([facility]) documented in this encounter Care Teams Automobile Upholstery Trim Installer Relationship Specialty Start Date End Date Tg Milner FNP [address] [place] [phone] PCP - General Family Medicine 04/28/22 documented as of this encounter
[2024-09-01 23:26] LABS: Appearance Urine Clear; Color Urine Yellow; Glucose Urine UA >=1000 mg/dL (Negative); Leukocyte Esterase Urine Negative (Negative); Nitrite Urine Negative (Negative); Specific Gravity - Urine >= 1.030 (1.005-1.025); UMIC TRIGGER UACC YES; Urine Blood Small (1+) (Negative); Urine Ketones Negative (Negative); Urine Protein 30 (1+) mg/dL (Neg-Trace)
[2024-09-01 23:31] LABS: Bacteria Urine None Seen (None Seen); Hyaline Casts Urine 0-2 /LPF (0-2); Squamous Epithelial Cell Urine 0-2 /HPF (0-2); WBC Urine 0-5 /HPF (0-5)
[2024-09-01 23:47] VITALS: BP 143/77; PULSE 71; RESP 20; TEMP 36.7; O2SAT 96
[2024-09-02 00:34] VITALS: BP 143/77; PULSE 71; RESP 20; TEMP 36.7; O2SAT 96
== END 2024-09-02 00:36 | disposition home or self-care (01) ==
PROVIDERS: Registered Nurse Emergency; Emergency Provider Emergency Medicine Emergency Medical Services
DX: K59.00 Constipation, unspecified (principal); R33.9 Retention of urine, unspecified; R10.31 Right lower quadrant pain; E11.22 Type 2 diabetes mellitus with diabetic chronic kidney disease; I12.9 Hypertensive chronic kidney disease with stage 1 through stage 4 chronic kidney disease, or unspecified chronic kidney disease; N18.9 Chronic kidney disease, unspecified; E78.5 Hyperlipidemia, unspecified; Z79.84 Long term (current) use of oral hypoglycemic drugs; Z79.82 Long term (current) use of aspirin; Z79.899 Other long term (current) drug therapy; Z79.02 Long term (current) use of antithrombotics/antiplatelets
CPT/HCPCS: 36415; 51702; 51798; 74177; 80053; 81001; 82010; 82803; 83690; 83735; 85025; 96374; 96375; 99284; J2270; J2405; Q9967

== ENCOUNTER → 2024-09-01 20:22 | Outpatient (BNV) | payer OTHER, SELFPAY | PROVIDERS: Visit Provider Radiology Neuroradiology | DX: N32.89 Other specified disorders of bladder (principal); R19.5 Other fecal abnormalities | CPT/HCPCS: 74177 ==

== ENCOUNTER 2024-09-16 15:04 | Outpatient (AMB) | payer OTHER, SELFPAY ==
--- NOTE | 2024-09-16 15:06 | MHC.OFFVIS ---
Vital Signs 09/16/24 15:07 Height 5 ft 10 in Weight 233 lb BMI 33.4 BP 116/73 Blood Pressure Location Lt brachial Position Sitting Pulse 67 Oxygen Delivery Method Room Air Intake Visit Reasons: pre colonoscopy/Cinda marrero 10/20/23 Intake Note: Complex follow up for pre colonoscopy /Cinda marrero 09/2023 Patient cc: constipation on and off. Denies any other GI issues. Retention Specialist Required: Yes Retention Specialist Name: [facility] Interpeter Accompanied by: Self / Same As Patient Allergies No Known Allergies [No Known Allergies*] Allergy (Verified 09/16/24 15:06) Medication List - Last Reconciled 09/16/24 by Yasmine Bingham CNP alcohol swabs (Alcohol Prep Pads) pad topical DAILY amlodipine 10 mg PO DAILY aspirin (Adult Aspirin Regimen) 81 mg PO DAILY bisacodyl 5 mg PO ONCE 1 day blood sugar diagnostic (FreeStyle Lite Strips) As directed clotrimazole-betamethasone 1-0.05 % 1 appl topical BID 4 weeks diphenoxylate-atropine 2.5-0.025 mg (Lomotil) 1 tab PO DAILY PRN docusate sodium 250 mg PO BID PRN dulaglutide (Trulicity) mg subcut empagliflozin (Jardiance) 25 mg PO DAILY gabapentin 800 mg PO BID lancets (TRUEplus Lancets) As directed latanoprost 0.005% 1 drp ophthalmic (eye) BEDTIME melatonin 10 mg PO BEDTIME PRN metformin 1,000 mg PO BID metoprolol succinate ER 200 mg PO DAILY pantoprazole 20 mg PO DAILY polyethylene glycol 3350 (Miralax) 238 grams PO ONCE 1 day pravastatin 40 mg PO DAILY HPI HPI pre colonoscopy/Cinda marrero 10/20/23: Details: Patient is a 60-year-old male with PMH of DMII, hypertension, hyperlipidemia and obesity. Last visit with SANCHO Hernandes 10/20/2023 for screening colonoscopy. Pt is here today for colonoscopy pre-screening. States he did not receive call for scheduling to complete colonoscopy last year. He reports recent 2 week period of constipation. States imaging was ordered that showed evidence of stool burden. States he had no improvement after miralax and stool softner. Shares he sought care at [facility] for hematuria and was diagnosed with UTI and started on antibiotics. Shares he was prescribed what sounds like lactulose at that same visit, with relief in constipation as of today. He reports seeking ER care here 09/01/2024 for abdominal pain. Found to have urinary retention requiring Anaya catheter. Reports catheter will remain in place until he follows up with Urology next month. Patient denies: n/v, appetite changes, regurgitation, unintentional wt loss, dysphasia, or melena/hematochezia. Social hx: ETOH cessation 10 years ago denies recreational drug use Former smoker, cessation 2 years ago denies personal hx of CA Family hx: Sister lymphoma PFSH Medical History Osteomyelitis DM2 (diabetes mellitus, type 2) Essential hypertension Right lumbar radiculopathy Arthritis of both knees Balanitis Type 2 diabetes mellitus with polyneuropathy Hyperlipidemia LDL goal <100 Obesity due to excess calories Type 2 diabetes mellitus with hyperglycemia, with long-term current use of insulin Surgical History H/O colonoscopy Hx of tonsillectomy Hx of appendectomy Family History Father No problems noted. 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 Review of Systems Const Reports as per HPI ENT Reports as per HPI Card Reports as per HPI Resp Reports as per HPI GI Reports as per HPI Reports as per HPI Physical Exam Vital Signs: Last Vital Signs Pulse 67 09/16/24 15:07 BP 116/73 09/16/24 15:07 Oxygen Delivery Method Room Air 09/16/24 15:07 BMI result Body Mass Index 33.4 Const General: healthy appearing, no acute distress and well developed Nutritional Appearance: obese Orientation/consciousness: patient oriented x3 HEENT Head: Yes normal to inspection, Yes normocephalic and Yes atraumatic Face and sinus: Yes normal facial exam Eyes General: appearance normal, both eyes and all related structures Neck Neck: Yes normal visual inspection Resp Effort & Inspection: normal respiratory effort, able to speak in complete sentences, no tracheal deviation and symmetric chest movement Auscultation: clear to auscultation bilaterally Cardio Jugular venous distension: no JVD Rate: regular rate Rhythm: regular rhythm Heart sounds: S1 normal heart sound present, S2 normal heart sound present, no gallops and no murmurs GI Inspection: Yes normal to inspection, No distended and Yes obesity Palpation (GI): Soft to palpation, not firm, nontender and No hepatosplenomegaly present Auscultation: normal bowel sounds Neuro General: patient oriented x3 Gait exam (Neuro): Normal gait present and Assistive device used Psych Appearance: grossly normal Mental Status: mental status grossly normal Speech and movement: Normal speech and movement present Affect: normal affect Attitude: cooperative Thought process: Normal thought process present Thought content: Normal thought content present Insight: Good insight present (Psych) Judgement: Good judgement present (Psych) Results Reviewed Results Reviewed: 01/19/2014 colonoscopy: Negative colonoscopy to the proximal ascending colon. Ileocecal valve well seen. Date of Service: 08/31/24 Procedure(s): XR KUB Accession Number(s): [id number] cc: Melisa Jacob MD~ EXAMINATION: XR ABDOMEN 1 VIEW (KUB) HISTORY: right flank pain COMPARISON: There are no prior studies for comparison. FINDINGS: Four supine views of the abdomen are submitted. The bowel gas pattern is unremarkable, without evidence of mechanical obstruction. There is a moderate amount of stool throughout the colon. Calcifications in the pelvis are likely vascular in nature. Exclusion from the urinary tract is not possible on the basis of this examination. There are no abnormal soft tissue masses. There is mild degenerative disc disease of the spine. XR/XR KUB IMPRESSION: Calcifications in the pelvis are likely vascular in nature. However, exclusion from the urinary tract is not possible on the basis of this examination. If there is clinical concern for ureteral calculi, unenhanced CT could be performed. Assessment & Plan Assessment & Plan (1) Encounter for screening colonoscopy: Code(s): Z12.11 - Encounter for screening for malignant neoplasm of colon Category: Medical Plan: First screening colonoscopy 2013 and normal. Due for CRC screening. Reviewed prep and procedure expectations. He understands to hold Trulicity and aspirin 1 week before procedure. As well as hold metformin and Empagliflozin the morning of procedure. Prep Rx'd to preferred pharmacy. (2) Anaya catheter in place: Code(s): Z97.8 - Presence of other specified devices Plan: Secondary to acute urinary retention. Keep upcoming appointment with Urology (3) Urinary tract infection: Code(s): N39.0 - Urinary tract infection, site not specified Qualifiers: Urinary tract infection type: site unspecified Hematuria presence: with hematuria Qualified Code(s): N39.0 - Urinary tract infection, site not specified; R31.9 - Hematuria, unspecified Plan: Diagnosed by outside facility. Currently asymptomatic. Patient to complete antibiotic course. To follow with urology. Plan Follow-up after colonoscopy Time: I spent a total of 45 minutes on the date of encounter which includes: Preparing to see the patient (reviewed previous documentation, test results and medical history) Performing a medically appropriate exam and/or evaluation Ordering medications, tests, and procedures Documenting clinical information in the health record Medications: New bisacodyl per colonoscopy instructions 5 mg PO ONCE 1 day 3 tabs 0RF Refilled polyethylene glycol 3350 (Miralax) Take as directed by mouth the day before your procedure. 238 grams PO ONCE 1 day 238 grams 0RF laxative effect Discontinued polyethylene glycol 3350 (Miralax) Discontinued Reason: No Longer Medically Relevant 17 grams PO DAILY 2 weeks 30 ea 0RF Coding Level of Care Code Established Pt Est Pt Level 4 (37035) Patient Type Established Diagnoses Encounter for screening colonoscopy Z12.[address] Z97.8 Urinary tract infection with hematuria, site unspecified N39.0; R31.9 Urinary tract infection type: site unspecified Hematuria presence: with hematuria
[2024-09-16 15:07] VITALS: BP 116/73; PULSE 67; BMI 33.4
--- OUTSIDE RECORDS SUMMARY | 2024-09-16 15:10 | XMS_ITS | Clinical Summary ---
Author Organization [employer] Address [address] [place] [address] 7[address] [place] [address] Care Team Providers Care Tech Ed Teacher Name Role Phone Tg Milner [facility] Primary Care Provider [phone] Allergies No known active allergies Medications cyclobenzaprine [...] polyneuropathy associated with type 2 diabetes mellitus ([facility]/HCC) TEST BLOOD SUGAR ONCE DAILY IN [...] complication, without long-term current use of insulin ([facility]) Inject 4.5 mg under the skin 1 (one) time per week. 4 each Active Jardiance 25 MGIndications:Typ e 2 diabetes mellitus without complication, without long-term current use of insulin ([facility]) TAKE 1 TABLET BY MOUTH EVERY MORNING [...] complication, without long-term current use of insulin ([facility]) TAKE 2 TABLETS BY MOUTH TWICE DAILY [...] unspecified whether stage 3a or 3b CKD ([facility]) Inject 6 Units under the skin at bedtime. 3 mL 12 025 2025 Active insulin pen needle 32G x 4 mm miscIndications:T ype 2 diabetes mellitus with stage 3 chronic kidney disease, with long-term current use of insulin, unspecified whether stage 3a or 3b CKD ([facility]) Use as instructed 100 each 12 025 2025 Active Continuous Glucose Sensor (FreeStyle May 2 Sensor) miscIndications:T ype 2 diabetes mellitus with stage 3 chronic kidney disease, with long-term current use of insulin, unspecified whether stage 3a or 3b CKD ([facility]) Use as directed 2 each 3 025 Active Continuous Glucose Sleep Tech (FreeStyle May 2 Hanson) deviceIndications :Type 2 diabetes mellitus with stage 3 chronic kidney disease, with long-term current use of insulin, unspecified whether stage 3a or 3b CKD ([facility]) Use as directed 1 each 025 Active [...] 06/14/2018 Overview (11/26/2022): ?? Followed by [facility] vascular ?? Compression stockings ?? Pain managed with gabapeentin 800mg t.i.d ?? Followed by [facility] wound care for venous stasis ulcer Assessment [...] Foot Exam: 07/2023--RISK 1 Eye Exam: Through [facility]. UTD Statin: Yes ASA: Yes GISELA/ARB: Yes [...] Encounters Date Type Department Care Team Description 09/15/2024 10:00 AM EDT Clinical Support [facility] [address] [place] [phone] Heidi Silva, LANA Type 2 diabetes mellitus with stage 3b chronic kidney disease, with long-term current use of insulin ([facility]); Healthcare maintenance 09/15/2024 Telephone [facility] [address] [place] [phone] Heidi Silva, RN CGM Appt 09/15/2024 Travel 09/01/2024 Orders Only GENERIC EXTERNAL DATA DEPARTMENT Provider, Generic External Data 09/01/2024 Telephone [facility] [address] [place] [address] Nicole Kaur, LANA Results 08/31/2024 3:00 PM EDT Office Visit [facility] [address] [place] [phone] Melisa Jacob MD Pain in right lumbar region of back (Primary Dx); Right flank pain; Calcaneal bursitis (heel), right; Class 1 obesity due to excess calories with serious comorbidity and body mass index (BMI) of 34.0 to 34.9 in adult; Dietary counseling; Exercise counseling 08/31/[address] [address] Melisa Jacob MD 08/31/[address] [address] AlbaTg dalal FNP Primary hypertension 08/23/2024 Orders Only [facility] External Provider, [facility] 08/16/2024 1:00 PM EDT Clinical Support [address] [address] Heidi Silva RN Type 2 diabetes mellitus with other circulatory complication, without long-term current use of insulin ([facility]) 08/16/2024 Travel 08/04/2024 Refill [facility] [address] [place], [place] [phone] Tg Milner FNP Primary osteoarthritis of right knee 07/25/[address] [address] Tg Milner FNP CGM PA 07/22/2024 10:15 AM EST Office Visit [address] [address] Tg Milner FNP Type 2 diabetes mellitus with stage 3 chronic kidney disease, with long-term current use of insulin, unspecified whether stage 3a or 3b CKD ([facility]) (Primary Dx); Essential hypertension; Dietary counseling; Exercise counseling; Class 1 obesity due to excess calories with serious comorbidity and body mass index (BMI) of 34.0 to 34.9 in adult 07/22/2024 Travel 07/21/[address] [address] Tg Milner FNP chart prep 07/07/2024 Refill [facility] [address] [place] [address] [phone] Jaclyn Hutton FNP from Last 3 Months [...] Care Team (Late st Contact Info) Description 10/19/2024 11:15 AM EDT Office Visit [facility] [address] [place] [address] [facility], [facility] [address] [place], [place] [phone] Health Maintenance Due Date Last Done Comments [...] years 1-dose series) 2018 COVID-19 Vaccine ( - season) 2024 Influenza Vaccine (#1) 2024 Diabetes: [...] URINALYSIS, COMPLETE, WITH REFLEX TO CULTURE Routine 09/01/2024 11:[address] ABDOMEN PELVIS W CONTRAST Routine 09/01/2024 [...] Recently Relevant to Health Maintenance Results * (ABNORMAL) Urinalysis, Complete, with Reflex to Culture (09/01/2024 11:17 PM EDT) Only the most recent of2 resultswithin the time period is included. Color Urine Yellow [facility] Appearance Urine Clear [facility] PH 6.0 5.0 - 9.0 [facility] Glucose Urine UA >=1000(A) Negative mg/dL [facility] Urine Blood Small (1+)(A) Negative [facility] Specific [place] - Urine >=1.030(H) 1.005 - 1.025 [facility] Urine Protein 30 (1+)(A) Neg-Trace mg/dL [facility] Urine Ketones Negative Negative mg/dL [facility] Nitrite Urine Negative Negative [facility] Leukocyte Esterase Urine Negative Negative [facility] RBC Urine 6-10(A) 0 - 2 /HPF [facility] Urine WBC 0-5 0 - 5 /HPF [facility] Urine Squamous Epithelial Cell 0-2 0 - 2 /HPF [facility] Urine Bacteria None Seen None Seen [facility] Hyaline Casts, Urine 0-2 0 - 2 /LPF [facility] 09/01/2024 11:1 7 PM EDT 09/01/2024 11:23 PM EDT Narrative [facility] - 09/01/2024 11:32 PM EDT Urine, Clean Catch us Generic External Data Provider LAB URINE ORDERAB LES Final Result [facility] [address] [place] [address] [phone] * CT Abdomen Pelvis w/ Contrast (09/01/2024 9:53 PM EDT) Anatomical Region Laterality Modality Body, Pelvis, Abdomen Computed T omography 09/01/2024 9:53 PM EDT Narrative 09/01/2024 9:56 PM EDT ? [facility] ?[address] ?[place] [address] ? CT Scan Report ? Signed ? Patient: Cade Whaley,Brandt ?MR#: MM ?? [id number] ? : 1960 ?Acct:[id number] ? Age/Sex: 63 / M ?ADM Date: 09/01/24 ? Loc: HO.ED ? Attending Dr: ? Ordering Physician: Peter Urbina ?? Date of Service: 09/01/24 ?? Procedure(s): CT abdomen pelvis w IV con ?? Accession Number(s): [id number] ? cc: [facility]; Peter Urbina ? Report Number: ?? [id number]: Total DLP = ??768.00 mGy-cm ? CLINICAL [...] ? DD/ 52 ? TD/TT: 09/01/242152 ? Sales Planner: ? Procedure Note Donmark anthonyter, Image - 09/01/[address] [place] [address] [address] Scan Report Signed Patient: Brandt NelsonMR#: MM [id number] : 1960cct:[id number] Age/Sex: 63 / MADM Date: 09/01/24 Loc: HO.ED Attending Dr: Ordering Physician: Peter Urbina Date of Service: 09/01/24 Procedure(s): CT abdomen pelvis w IV con Accession Number(s): [id number] cc: [facility]; Peter Urbina Report Number: [id number]: Total DLP = 768.00 mGy-cm CLINICAL HISTORY: [...] in OV> 09/01/242154 DD/ 52 TD/TT: 09/01/242152 Sales Planner: [facility] External Provider IMG CT PROCEDURES Final Result * (ABNORMAL) VENOUS BLOOD GAS (09/01/2024 4:00 PM EDT) VBG pH 7.35 7.32 - 7.43 [facility] Comment:METER #: [id number] additional_comment: Cb toucheg VBG PCO2 54 mmHg [facility] Comment:METER #: [id number] additional_comment: Cb toucheg VBG PO2 42 mmHg [facility] Comment:METER #: [id number] additional_comment: Cb toucheg VBG Base Excess 3.5 mmol/L [facility] Comment:METER #: [id number] additional_comment: Cb toucheg VBG HCO3 30(H) 22 - 26 mmol/L [facility] Comment:METER #: [id number] additional_comment: Cb toucheg O2 Sat, Braulio 68.0 % [facility] Comment:METER #: [id number] additional_comment: Cb toucheg 09/01/2024 4:00 PM EDT 09/01/2024 4:05 PM EDT Generic External Data Provider LAB BLOOD ORDERAB LES Final Result [facility] [address] [place] [address] [phone] * Beta-Hydroxybutyrate (09/01/2024 3:56 PM EDT) Pathologist [facility] Beta-Hydroxybut yrate 0.27 0.02 - 0.27 mmol/L [facility] 09/01/2024 3:56 PM EDT 09/01/2024 3:58 PM EDT Generic External Data Provider LAB BLOOD ORDERAB LES Final Result Performing Organization Address [facility] Co de Phone Number [facility] [address] [place] [address] [phone] * (ABNORMAL) CBC auto differential (09/01/2024 3:56 PM EDT) Only the most recent of2 resultswithin the time period is included. [facility] White Blood Count 6.8 4.8 - 10.8 X10*3/uL [facility] Red Blood Count 4.46(L) 4.60 - 5.80 X10*6/uL [facility] Hemoglobin 12.8(L) 14.0 - 18.0 g/dl [facility] Hematocrit 38.2(L) 42.0 - 52.0 % [facility] Mean Corpuscular Volume 85.7 80.0 - 98.0 fL [facility] Mean Corpuscular Hemoglobin 28.7 27.0 - 33.0 pg [facility] Mean Corpuscular HGB Conc 33.5 31.0 - 36.0 g/dl [facility] Red Cell Distribution Width 14.5 11.0 - 16.0 % [facility] Platelet Count 245 160 - 400 X10*3/uL [facility] Mean Platelet Volume 10.3 9.4 - 12.4 fL [facility] Neutrophils Percent Auto 58.6 45 - 73 % [facility] Imm Gran Pct Auto 0.4 0.0 - 0.4 % [facility] Lymphocytes Percent Auto 24.9 20 - 40 % [facility] Monocytes Percent Auto 12.5(H) 2 - 11 % [facility] Eosinophils Percent Auto 2.7 0 - 4 % [facility] Basophils Percent Auto 0.9 0 - 2 % [facility] NRBC Pct Auto 0.0 0.0 - 0.2 /100WBC [facility] Neutrophils Absolute Auto 4.0 2.0 - 8.3 x10*3/uL [facility] Imm Gran Abs Auto 0.03 0.00 - 0.03 X10*3/uL [facility] Lymphocytes Absolute Auto 1.7 1.2 - 4.9 X10*3/uL [facility] Monocytes Absolute Auto 0.9 0.1 - 1.2 X10*3/uL [facility] Eosinophils Absolute Auto 0.2 0.0 - 0.4 X10*3/uL [facility] Basophils Absolute Auto 0.1 0.0 - 0.2 X10*3/uL [facility] NRBC Abs Auto 0.000 0.0 - 0.012 X10*3/uL [facility] 09/01/2024 3:56 PM EDT 09/01/2024 3:58 PM EDT us Generic External Data Provider LAB BLOOD ORDERAB LES Final Result [facility] [address] [place] [phone] * Magnesium (09/01/2024 3:56 PM EDT) Magnesium 1.8 1.6 - 2.6 mg/dL [facility] 09/01/2024 3:56 PM EDT 09/01/2024 3:58 PM EDT us Generic External Data Provider LAB BLOOD ORDERAB LES Final Result Performing Organization Address City/[facility]/ZIP Co de Phone Number [facility] [address] [place] [address] [phone] * (ABNORMAL) Lipase (09/01/2024 3:56 PM EDT) Only the most recent of2 resultswithin the time period is included. Lipase 143(H) 8 - 78 U/L [facility] 09/01/2024 3:56 PM EDT 09/01/2024 3:58 PM EDT us Generic External Data Provider LAB BLOOD ORDERAB LES Final Result Performing Organization Address [facility] Co de Phone Number [facility] [address] [place] [address] [phone] * (ABNORMAL) Comprehensive Metabolic Panel (09/01/2024 3:56 PM EDT) Sodium 142 135 - 145 mmol/L [facility] Potassium 4.9 3.3 - 5.1 mmol/L [facility] Chloride 108 96 - 108 mmol/L [facility] Carbon Dioxide 27 22 - 29 mmol/L [facility] Anion Gap 12 12 - 20 [facility] Urea Nitrogen (BUN) 29(H) 9 - 16 mg/dL [facility] Creatinine, Serum 1.48(H) 0.5 - 1.4 mg/dL [facility] Creatinine Clr Calc Pharmacy 60.5 [facility] Comment:eGFR (calculated fro m the MDRD study equation) and eCrCl(calculated from the Cockcroft-Gault equation) are based ondifferent parameters and may not yield comparable results.If eCrCl result is absurd, please check patient'sheight/weight. Estimated Glomerular Filt Rate 48 [facility] Comment:Chronic Kidney Disea se: Estimated GFR < 60 mL/min/1.41u9Gcqwmb Kidney Disease: Estimated GFR < 15 mL/min/1.73m2 Glucose 145(H) 60 - 115 mg/dL [facility] Calcium 9.7 8.4 - 10.2 mg/dL [facility] Bilirubin, Total 0.3 0.0 - 1.0 mg/dL [facility] Aspartate Amino Transferase 33 5 - 37 U/L [facility] Alanine Aminotransferase 44(H) 0 - 40 U/L [facility] Total Protein 8.1(H) 6.5 - 8.0 g/dL [facility] Albumin Level 4.1 3.5 - 5.0 g/dL [facility] Alkaline Phosphatase 63 39 - 117 U/L [facility] 09/01/2024 3:56 PM EDT 09/01/2024 3:58 PM EDT us Generic External Data Provider LAB BLOOD ORDERAB LES Final Result Performing Organization Address [facility]/ZIP Co de Phone Number [facility] [address] [place] [phone] * Amylase (08/31/2024 3:30 PM EDT) Amylase 85 28 - 100 U/L [facility] Blood Venous blood specimen / Unknown 08/31/2024 3:30 PM EDT 08/31/2024 6:01 PM EDT us Melisa Jacob MD LAB BLOOD ORDERABLES Final Result Performing Organization Address City/[facility]/ZIP Co de Phone Number [facility] [address] [place] [phone] * (ABNORMAL) Hepatic Function Panel (08/31/2024 3:30 PM EDT) Bilirubin, Total 0.3 0.0 - 1.0 mg/dL [facility] Bilirubin, Direct 0.1 0.0 - 0.5 mg/dL [facility] Aspartate Amino Transferase 32 5 - 37 U/L [facility] Alanine Aminotransferase 41(H) 0 - 40 U/L [facility] Total Protein 8.1(H) 6.5 - 8.0 g/dL [facility] Albumin Level 4.0 3.5 - 5.0 g/dL [facility] Alkaline Phosphatase 56 39 - 117 U/L [facility] Blood Venous blood specimen / Unknown 08/31/2024 3:30 PM EDT 08/31/2024 6:01 PM EDT us Melisa Jacob MD LAB BLOOD ORDERABLES Final Result [facility] [address] [place] [address] [phone] * XR KUB and Upright 2 Views (08/31/2024 3:24 PM EDT) Anatomical Region Laterality Modality Radiographic Cheryl ging 08/31/2024 3:24 PM EDT Narrative 08/31/2024 3:48 PM EDT ?[facility] ?[address] ?[place] [address] ?XRay Report ? Signed ? Patient: Brandt Nelson ?MR#: MM ?? [id number] ? : 1960 ?Acct:[id number] ? Age/Sex: 63 / M ?ADM Date: 08/31/24 ? Loc: HO.HHCX ? Attending Dr: Melisa Jacob MD ? Ordering Physician: Melisa Jacob MD ?? Date of Service: 08/31/24 ?? Procedure(s): XR KUB ?? Accession Number(s): [id number] ? cc: Melisa Jacob MD ? EXAMINATION: [...] DD/ 1524 ? TD/TT: 08/31/24 1530 ? Sales Planner: ? Procedure Note Donprerna, Image - 08/31/2024 [place] [address] XRay Report Signed Patient: Brandt NelsonMR#: MM [id number] : 9Acct:[id number] Age/Sex: 63 / MADM Date: 08/31/24 Loc: HO.HHCX Attending Dr: Melisa Jacob MD Ordering Physician: Melisa Jacob MD Date of Service: 08/31/24 Procedure(s): XR KUB Accession Number(s): [id number] cc: Melisa Jacob MD EXAMINATION: XR ABDOMEN [...] 08/31/24 1545 DD/ 1524 TD/TT: 08/31/24 1530 Sales Planner: us Melisa Jacob MD IMG XR PROCEDURES Final Re sult * US KELLY COMPLETE (08/24/2024 4:45 PM EDT) Anatomical Region Laterality Modality Abdomen Ultrasound 08/24/2024 4:45 PM EDT Narrative 08/24/2024 4:46 PM EDT ? [facility] ?[address] ?[place] [address] ? Ultrasound Report ? Signed ? Patient: Brandt Nelson ?MR#: MM ?? [id number] ? : 1960 ?Acct:[id number] ? Age/Sex: 63 / M ?ADM Date: 08/23/24 ? Loc: HO.US ? Attending Dr: Nieves Cabrera MD ? Ordering Physician: Nieves Cabrera MD ?? Date of Service: 08/23/24 ?? Procedure(s): US KELLY complete ?? Accession Number(s): [id number] ? cc: Nieves Cabrera MD; Tg Milner ? CLINICAL HISTORY: TOE PRESSURES, NON HEALING [...] Chamberlain MD in OV> ?08/24/246 ? DD/ ? TD/TT: 08/24/241644 ? Sales Planner: ? Procedure Note Donoterikainterpreter, Image - 08/24/[address] [address] Ultrasound Report Signed Patient: Yolande Nelson#: MM [id number] : 9Acct:[id number] Age/Sex: 63 / MADM Date: 08/23/24 Loc: HO.US Attending Dr: Nieves Cabrera MD Ordering Physician: Nieves Cabrera MD Date of Service: 08/23/24 Procedure(s): US KELLY complete Accession Number(s): [id number] cc: Nieves Cabrera MD; [facility] CLINICAL HISTORY: TOE PRESSURES, NON HEALING WOUND [...] signed by Blayne Chamberlain MD in OV> 08/24/241645 DD/ 44 TD/TT: 08/24/241644 Sales Planner: us [facility] External Provider IMG US PROCEDURES Final Result * (ABNORMAL) POCT HGB A1C (07/22/2024 10:04 AM EST) Hemoglobin A1C 8.2(A) 4.0 - 6.0 % QC Media Lot # [id number] Lot# Expiration Date Blood 07/22/2024 10:0 4 AM EST [facility] POINT OF CARE TEST ENTER/EDIT ORDERABLES Final Result * POCT Glucose (07/22/2024 10:04 AM EST) Glucose Blood, POC 145 60 - 200 mg/dL QC Media Lot # [id number] Lot# Expiration Date Blood Capillary blood specimen / Unknown 07/22/2024 10:04 AM EST [facility] POINT OF CARE TEST ENTER/EDIT ORDERABLES Final Result * Albumin, Random Urine W/Creatinine (01/22/2024 10:30 AM EDT) Creatinine, Urine 64.84 mg/dL [facility] Microalbumin Urine 10.0 mg/L [facility] Microalbum Creatinine Ratio Ur 15.4 <30 ug/mg cr [facility] Comment:Albumin/Creatinine R atio Reference Ranges: Normal: < 30 ug/mg creatinine Microalbuminuria: 30 - 300 ug/mg creatinineClinical Albuminuria: > 300 ug/mg creatinine Urine 01/22/2024 10:3 0 AM EDT 01/22/2024 11:05 AM EDT [facility] LAB URINE ORDERABLES Final Re sult [facility] [address] [place] [phone] * (ABNORMAL) Lipid Panel, Standard (01/22/2024 10:21 AM EDT) Triglycerides 291(H) <150 mg/dL [facility] Comment:Desirable Triglyceri de: less than 150 mg/dLBorderline High Triglyceride 150-199 mg/dLHigh Triglyceride: 200-499 mg/dLVery High Triglyceride: greater than or equal to 5OO mg/dL Cholesterol 166 <200 mg/dL [facility] Comment:Desirable Cholestero l: less than 200 mg/dLBorderline High Cholesterol: 200-239 mg/dLHigh Cholesterol: greater than 239 mg/dL LDL Cholesterol Calculated 77 <100 mg/dL [facility] Comment:Desirable LDL: less than 100 mg/dLNear Optimal/Above Optimal LDL: 110- 129 mg/dLBorderline High LDL: 130-159 mg/dLHigh LDL: 160-189 mg/dLVery High LDL: greater than or equal to 190 mg/dL HDL Cholesterol 31(L) >40 mg/dL [facility] Comment:Desirable HDL: great er than 40 mg/dL Note: This HDL assay may give artificially low results in patients with liver disease. Blood Venous blood specimen / Unknown 01/22/2024 10:21 AM EDT 01/22/2024 11:05 AM EDT [facility] LAB BLOOD ORDERABLES Final Re sult [facility] [address] [place] [phone] * Hepatitis C Antibody with Reflex to HCV, RNA, Quantitative, Real-Time PCR (09/01/2022 2:59 PM EDT) Hepatitis C Antibody NON-REACT DARY NON-REACT DARY [employer] [facility] Index 0.09 <1.00 [facility] [place] [facility] Comment: HCV antibody was non-reactive. There is no laboratory evidence of HCV infection. In most cases, no further action is required. However, if recent HCV exposure is suspected, a test for HCV RNA (test code 28645) is suggested. For additional information please refer to http://education.Oodrive/faq/TNG30d8 (This link is being provided for informational/ educational purposes only.) Blood Venous blood specimen / Unknown 09/01/2022 2:59 PM EDT 09/01/2022 2:59 PM EDT [facility] LAB BLOOD ORDERABLES Final Re sult [facility] [address], [place] [address] [facility] [address] [place] [phone] from Last 3 Months or Most Recently Relevant to Health Maintenance Insurance [facility] [employer] (HMO D-SNP) [place] [id number] Care Teams Tech Ed Teacher Relationship Specialty Start Date End Date [facility] [address] [place] [address] PCP - General Family Medicine 04/28/22
--- OUTSIDE RECORDS SUMMARY | 2024-09-16 15:10 | XMS_ITS | Encounter Summary ---
Author Organization [employer] Address [address] [place] [address] [address] [place] [address] Care Team Providers Care Administrative Services Specialist Name Role Phone Tg Milner [facility] Primary Care Provider [phone] Reason for Visit * Reason Onset Date Comments Medication Question 05/06/2022 new script 05/06/2022 Encounter Details Date Type Department Care Team ([facility] st Contact Info) Description 05/06/2022 Telephone [facility] [address] [place], [place] [phone] [facility] [address] [place] [address] Medication Question; new script Social History Tobacco [...] has Trulicity .75, 1.5 or 3mg. PCP [facility] [place] * Telephone Encounter - Nany Gann - 05/06/2022 2:08 PM EST Tc from pt requesting active medications. Pt will be traveling to [place] as of May 19nd unsure on the exact date that will be returning. Stated will be returning after the new years but has yet to establish a date. PCP [facility]ELL[facility] [place] documented in this encounter Plan of Treatment Upcoming Encounters Date Type Department Care Team (Late st Contact Info) Description 10/19/2024 11:15 AM EDT Office Visit [facility] [address] [place] [address] Tg Milner FNP [address] [place] [address] documented as of this encounter Visit Diagnoses Diagnosis Type 2 diabetes mellitus without complication, without long-term current use of insulin ([facility]) documented in this encounter Care Teams Administrative Services Specialist Relationship Specialty Start Date End Date Tg Milner FNP [address] [place] [address] PCP - General Family Medicine 04/28/22 documented as of this encounter
--- OUTSIDE RECORDS SUMMARY | 2024-09-16 15:10 | XMS_ITS | Encounter Summary ---
Author Organization [facility] Address [address] [place] [address] Care Team Providers [employer] Founder Name Role Phone Annia [place] Primary Care Provider [phone] Reason for Visit * Reason Comments Male Problem Bo cath x 1wk, co mplaints of hematuria and pain today Encounter Details Date Type Department Care Team (Late st Contact Info) Description 09/13/2024 1:25 AM EDT - 09/13/2024 6:03 AM EDT Emergency [facility] Emergency [address] [place] [id number] Paloma Perry MD [address] [place] [address] Hemorrhagic cystitis (Primary Dx); Acute on chronic renal insufficiency Discharge Disposition: Home or Self Care Social History Tobacco Use Types Packs/Day Years Used Date Smoking Tobacco: Former Cigarettes Smokeless Tobacco: Never Tobacco Cessation:Counseling Given: Not Answered Sex and Gender Information Value Date Recorded Sex Assigned at Male 09/13/2024 2:04 AM EDT Legal Sex Male 2:57 AM EST Gender Identity Male 09/13/2024 2:04 AM EDT Sexual Orientation Choose not to disclose 2024 2:04 AM EDT documented as of this encounter Last Filed Vital Signs Vital Sign Reading Time Taken Comments Blood Pressure 159/82 09/13/2024 2:10 AM EDT Pulse 95 09/13/2024 2:10 AM EDT Temperature 36.8 ??C (98.3 ??F) 09/13/2024 2:10 AM ED T Respiratory Rate 18 09/13/2024 2:10 AM EDT Oxygen Saturation 100% 09/13/2024 2:10 AM EDT Inhaled Oxygen Concentration - - Weight 106 kg (234 lb) 09/12/2024 6:49 PM EDT Height 177.8 cm (5' 10 ) 09/12/2024 6:49 PM EDT Body Mass Index 33.58 09/12/2024 6:49 PM EDT documented in this encounter Functional Status * Are you deaf or do you have serious difficulty hearing? Answer Date of Assessment Author No 09/13/2024 1:40 AM Christine Irene RN * Are you blind or do you have serious difficulty seeing, even when wearing glasses? Answer Date of Assessment Author No 09/13/2024 1:40 AM Christine Irene RN * Do you have serious difficulty walking or climbing stairs? Answer Date of Assessment Author No 09/13/2024 1:40 AM Christine Irene RN * Do you have serious difficulty dressing or bathing? Answer Date of Assessment Author No 09/13/2024 1:40 AM Christine Irene RN * Because of a physical, mental, or emotional condition, do you have serious difficulty doing errandsalone such as visiting the doctor? Answer Date of Assessment Author No 09/13/2024 1:40 AM Christine Irene RN documented as of this encounter Mental Status * Because of a physical, mental, or emotional condition, do you have serious difficulty concentrating, remembering, or making decisions? (5 years old or older) Answer Entry Date Author No 09/13/2024 1:40 AM Christine Irene RN documented in this encounter Discharge Instructions * Attachments The following attachments cannot be sent through Care Everywhere. * UTI (Urinary Tract Infection): Male (Yi) documented in this encounter Medications at Time of Discharge acetaminophen (TYLENOL) 325 mg tablet Take 2 Tablets by mouth every 6 hours as needed for Pain (mild to moderate pain) for up to 10 days. 07/03/2022 aspirin 81 mg EC tablet Take 1 Tablet by mouth daily. cephalexin (KEFLEX) 500 mg capsule Take 1 capsule (500 mg total) by mouth 4 (four) times a day for 10 days. 40 each 09/13/2024 09/23/2024 dicyclomine (BENTYL) 20 mg tablet Take 1 tablet (20 mg total) by mouth 2 (two) times a day for 10 days. 20 tablet 09/13/2024 09/23/2024 dulaglutide (Trulicity) 0.75 mg/0.5 mL pen injector injection Inject into the skin. GABAPENTIN ORAL Take by mouth. lactulose (CHRONULAC) solution Take 30 mL (20 g total) by mouth 3 (three) times a day for 3 days. 270 mL 09/13/2024 09/16/2024 LISINOPRIL ORAL Take by mouth. metformin HCl (METFORMIN ORAL) Take by mouth. METOPROLOL SUCCINATE ORAL Take by mouth. SIMVASTATIN ORAL Take by mouth. documented as of this encounter Ordered Prescriptions Prescription Sig Dispense Quantity Refills Last Filled Start Date End Date dicyclomine (BENTYL) 20 mg tablet Take 1 tablet (20 mg total) by mouth 2 (two) times a day for 10 days. 20 tablet 09/13/2024 lactulose (CHRONULAC) solution Take 30 mL (20 g total) by mouth 3 (three) times a day for 3 days. 270 mL 09/13/2024 cephalexin (KEFLEX) 500 mg capsule Take 1 capsule (500 mg total) by mouth 4 (four) times a day for 10 days. 40 each 09/13/2024 documented in this encounter Discharge Disposition Disposition Code Departure Means Destination Comment s Home or Self Care documented in this encounter Progress Notes * Whit Buchanan RN - 09/12/2024 6:44 PM EDT Presents c/o hematuria in his bo x 4 days. Denies any trauma or injury or tugging to the bo catheter. Denies any pain, his concern is the blood in his bo. Not retaining urine, states bo is draining with no issues. Pt also c/o of feeling weak and having chills for the last 2 days. * Paloma Perry MD - 09/12/2024 6:42 PM EDT Emergency Medicine Note Patient Name: Brandt Whaley Initial Evaluation: 09/12/2024 : 1960 Patient's PCP: [facility] Emergency Physician: Paloma Perry MD History of Present Illness Chief Complaint: Chief Complaint Patient presents with Male Problem Bo cath x 1wk, complaints of hematuria and pain today HPI: 63-year-old male with history of hypertension and urinary retention status post Bo catheterplacement by urology presenting with hematuria in his Bo ongoing for the last several days. No trauma to the area. Has been feeling somewhat ill over the last couple of days as well including subjective fevers and generalized weakness. Does admit to decreased oral intake. Denies cough or cold type symptoms. Denies nausea or vomiting. Bo is easily draining. ROS: I have performed a ROS with the pertinent positives and negatives documented in the history ofpresent illness. Previous History Past Medical History: Diagnosis Date Hypertension History reviewed. No pertinent surgical history. Social History Tobacco Use Smoking status: Former Types: Cigarettes Smokeless tobacco: Never No family history on file. has No Known Allergies. No current facility-administered medications on file prior to encounter. Current Outpatient Medications on File Prior to Encounter Medication Sig Dispense Refill acetaminophen (TYLENOL) 325 mg tablet Take 2 Tablets by mouth every 6 hours as needed for Pain (mild to moderate pain) for up to 10 days. aspirin 81 mg EC tablet Take 1 Tablet by mouth daily. dulaglutide (Trulicity) 0.75 mg/0.5 mL pen injector injection Inject into the skin. GABAPENTIN ORAL Take by mouth. LISINOPRIL ORAL Take by mouth. metformin HCl (METFORMIN ORAL) Take by mouth. METOPROLOL SUCCINATE ORAL Take by mouth. SIMVASTATIN ORAL Take by mouth. Physical Exam ED Triage Vitals Temp Heart Rate Resp BP 09/12/24184809/12/24184809/12/24184809/12/241848 37.3 ??C (99.2 ??F) (!) 125 20 (!) 132/101 SpO2 Temp Source Heart Rate Source Patient Position 09/12/24184809/12/24184809/12/2409/13/25 0210 97 % Oral Monitor Lying BP Location FiO2 (%) 09/12/24 1849 -- Right arm GENERAL: Chronically ill-appearing, conversant, no acute distress. SKIN: Normal skin color for ethnicity, warm, dry, no rashes noted. HEENT: Normocephalic, atraumatic, no stridor, posterior oropharynx nonerythematous, EOMI. NECK: Soft, supple, full ROM, midline structures nontender, no step-offs, no deformities, no lymphadenopathy. CHEST: Heart regular rate and rhythm, no murmurs, symmetric chest rise and fall. PULMONARY: Clear to auscultation bilaterally, no labored breathing, no wheezes/rhales/rhonchi. ABDOMINAL: Soft, nondistended, nontender, positive bowel sounds in all quadrants. : Deferred. MUSCULOSKELETAL: Normal tone, full range of motion, no deformities, no peripheral edema. NEURO: Alert and oriented to person, CN II through XII intact, no focal neurologic deficits. PSYCHIATRIC: Flat affect, fluid speech, appropriate demeanor. Results Labs Reviewed CULTURE URINE - Abnormal Result Value Culture, Urine >100,000 CFU/mL Proteus mirabilis (*) Culture, Urine (*) Value: 10,000-49,000 CFU/mL Klebsiella pneumoniae ssp pneumoniae BASIC METABOLIC PANEL - Abnormal Sodium 132 (*) Potassium 4.3 Chloride 100 CO2 25 Anion Gap 7 Glucose 216 (*) BUN 31 (*) Creatinine 1.87 (*) eGFR 39 (*) BUN/Creatinine Ratio 16.6 Calcium 9.7 CBC WITH AUTO DIFFERENTIAL - Abnormal WBC 6.0 RBC 4.70 Hemoglobin 13.1 (*) Hematocrit 39.6 (*) MCV 85.0 MCH 28.1 MCHC 33.1 RDW 13.9 Platelets 237 MPV 10.2 NRBC 0.0 NRBC Absolute 0.00 Neutrophils Relative 52.6 Lymphocytes Relative 26.1 Monocytes Relative 14.9 Eosinophils Relative 4.4 Basophils Relative 1.2 Immature Granulocytes Relative 0.8 Neutrophils Absolute 3.14 Lymphocytes Absolute 1.56 Monocytes Absolute 0.89 Eosinophils Absolute 0.26 Basophils Absolute 0.07 Immature Granulocytes Absolute 0.05 (*) URINALYSIS WITH REFLEX MICROSCOPIC AND CULTURE - Abnormal Specific [place] Urine 1.020 pH, Urine 8.0 Leukocytes, Urine Moderate (*) Nitrite, Urine Positive (*) Protein, Urine >=300 (*) Glucose, Urine >=1000 (*) Ketones, Urine Negative Urobilinogen, Urine 0.2 Bilirubin, Urine Small (*) Blood, Urine Large (*) RBC, Urine 100 (*) WBC, Urine 100 (*) Squamous Epithelial, Urine 4 Bacteria, Urine Moderate (*) Hyaline Casts, Urine 4 (*) RESPIRATORY VIRUS PANEL MOLECULAR STUDY - Normal Adenovirus Detection by PCR Not Detected Influenza A PCR Not Detected Influenza B PCR Not Detected Coronavirus 229E Not Detected Coronavirus HKU1 Not Detected Coronavirus OC43 Not Detected Coronavirus NL63 Not Detected Parainfluenza Virus 1 Not Detected Parainfluenza Virus 2 Not Detected Parainfluenza Virus 3 Not Detected Parainfluenza Virus 4 Not Detected RSV PCR Not Detected Human Metapneumovirus A and B Not Detected Rhinovirus/Enterovirus Not Detected Bordetella pertussis Not Detected Bordetella parapertussis Not Detected Mycoplasma pneumo by PCR Not Detected Chlamydia pneumoniae Not Detected SARS COV-2 Not Detected Narrative: Testing was performed using the [employer] Respiratory Pathogen PCR Assay. All results must be correlated with the clinical findings. Results should not be used as the sole basis for diagnosis. False Negative results may occur from the presence of sequence variants in the region targeted by the assay or the presence of inhibitors. Results may be affected by concurrent antiviral/antimicrobial therapy or levels of organisms that are below the limit of detection. MAGNESIUM - Normal Magnesium 1.9 CBC AND DIFFERENTIAL Narrative: The following orders were created for panel order CBC and differential. Procedure Abnormality Status --------- ------ CBC auto differential[[id number]] Abnormal Final result Please view results for these tests on the individual orders. URINALYSIS WITH REFLEX MICROSCOPIC AND CULTURE Narrative: The following orders were created for panel order Urinalysis with reflex microscopic and culture. Procedure Abnormality Status --------- ------ Urinalysis with reflex ...[[id number]] Abnormal Final result [place] urine culture tube[[id number]] Final result Please view results for these tests on the individual orders. Abnormal Labs Reviewed CULTURE URINE - Abnormal; Notable for the following components: Result Value Culture, Urine >100,000 CFU/mL Proteus mirabilis (*) Culture, Urine (*) Value: 10,000-49,000 CFU/mL Klebsiella pneumoniae ssp pneumoniae All other components within normal limits BASIC METABOLIC PANEL - Abnormal; Notable for the following components: Sodium 132 (*) Glucose 216 (*) BUN 31 (*) Creatinine 1.87 (*) eGFR 39 (*) All other components within normal limits CBC WITH AUTO DIFFERENTIAL - Abnormal; Notable for the following components: Hemoglobin 13.1 (*) Hematocrit 39.6 (*) Immature Granulocytes Absolute 0.05 (*) All other components within normal limits URINALYSIS WITH REFLEX MICROSCOPIC AND CULTURE - Abnormal; Notable for the following components: Leukocytes, Urine Moderate (*) Nitrite, Urine Positive (*) Protein, Urine >=300 (*) Glucose, Urine >=1000 (*) Bilirubin, Urine Small (*) Blood, Urine Large (*) RBC, Urine 100 (*) WBC, Urine 100 (*) Bacteria, Urine Moderate (*) Hyaline Casts, Urine 4 (*) All other components within normal limits No orders to display I have discussed the incidental/abnormal imaging and/or lab abnormalities with the patient and haveinstructed them the need for further evaluation and workup with their primary care doctor. I have provided the patient with a paper copy of the abnormality. The laboratory results, imaging results and other diagnostic exam results were reviewed in the EMR. EKG Interpretation Critical Care Time None ? Medical Decision Making This patient presents today with a chief complaint of abdominal pain. Differential diagnosis for this patient is broad. It includes cystitis appendicitis, cholecystitis,bowel obstruction, peptic ulcer disease, pyelonephritis, vascular pathology, among many others. A broad-based workup based on history and physical examination was obtained. Workup is showing evidence of UTI. Treating for hemorrhagic cystitis with Keflex. Discharged home to follow-up with urology. Medications cephalexin (KEFLEX) capsule 500 mg (500 mg oral Given 09/13/24 0543) Clinical Impressions as of 09/16/24 0856 Hemorrhagic cystitis Acute on chronic renal insufficiency Procedures Procedures Diagnosis 1. Hemorrhagic cystitis 2. Acute on chronic renal insufficiency Disposition Discharge ED Prescriptions Medication Sig Dispense Start Date End Date Auth. Provider cephalexin (KEFLEX) 500 mg capsule Take 1 capsule (500 mg total) by mouth 4 (four) times a day for 10 days. 40 each 09/13/2024 09/23/2024 Paloma Perry MD lactulose (CHRONULAC) solution (Expires today) Take 30 mL (20 g total) by mouth 3 (three) times a day for 3 days. 270 mL 09/13/2024 09/16/2024 Paloma Perry MD dicyclomine (BENTYL) 20 mg tablet Take 1 tablet (20 mg total) by mouth 2 (two) times a day for 10 days. 20 tablet 09/13/2024 09/23/2024 Paloma Perry MD Physician Attestation Paloma Perry MD 09/13/24 0524 Paloma Perry MD 09/16/24 0856 documented in this encounter Plan of Treatment Not on file documented as of this encounter Procedures Procedure Name Priority Date/Time Associated Diagnosis Comments URINALYSIS WITH REFLEX MICROSCOPIC AND CULTURE STAT 09/13/2024 2:32 AM EDT [place] URINE CULTURE TUBE STAT 09/13/2024 2:32 AM EDT URINALYSIS WITH REFLEX MICROSCOPIC AND CULTURE STAT 09/13/2024 2:32 AM EDT CULTURE URINE STAT 09/13/2024 2:32 AM EDT RESPIRATORY VIRUS PANEL MOLECULAR STUDY STAT 09/13/2024 1:36 AM EDT ECG ANNOTATED 09/13/2024 CBC WITH AUTO DIFFERENTIAL STAT 09/12/2024 7:05 PM EDT CBC AND DIFFERENTIAL STAT 09/12/2024 7:05 PM EDT MAGNESIUM STAT 09/12/2024 7:05 PM EDT BASIC METABOLIC PANEL STAT 09/12/2024 7:05 PM EDT ECG 12-LEAD STAT 09/12/2024 7:03 PM EDT documented in this encounter Results * (ABNORMAL) Culture urine (09/13/2024 2:32 AM EDT) [facility] Signature Culture, Urine >100,000 CFU/mL Proteus mirabilis(A) JEZ 09/16/2024 8:51 AM EDT [facility] Comment: Edited result: Previously reported as Proteus species on 09/14/2024 at 1010 EDT. Culture, Urine 10,000-49,000 CFU/mL Klebsiella pneumoniae ssp pneumoniae(A) JEZ 09/16/2024 8:51 AM EDT [facility] Comment: The organism value for this result has been updated. These results have been appended to the previously preliminary verified report. This is an edited result. Previous organism was Gram negative bacilli on 09/15/2024 at 1131 EDT. Urine Indwelling urinary catheter / Unknown Non-blood Collection / Unknown 09/13/2024 2:32 AM EDT 09/13/2024 3:25 AM EDT Narrative Organism Antibiotic Method Susceptibility Proteus mirabilis Amoxicillin/Clavulanate JEZ 4 ug/ml: Susceptible Proteus mirabilis Ampicillin/Sulbactam JEZ <=2 ug/ml: Susceptible Proteus mirabilis Piperacillin/Tazobactam JEZ <=4 ug/ml: Susceptible Proteus mirabilis Cefazolin (Urine) JEZ 4 ug/ml: Susceptible Proteus mirabilis Cefoxitin JEZ <=4 ug/ml: Susceptible Proteus mirabilis Ceftazidime JEZ <=0.5 ug/ml: Susceptible Proteus mirabilis Ceftriaxone JEZ <=0.25 ug/ml: Susceptible Proteus mirabilis Cefepime JEZ <=0.12 ug/ml: Susceptible Proteus mirabilis Meropenem JEZ 0.5 ug/ml: Susceptible Proteus mirabilis Amikacin JEZ 4 ug/ml: Susceptible Proteus mirabilis Gentamicin JEZ <=1 ug/ml: Susceptible Proteus mirabilis Ciprofloxacin JEZ <=0.06 ug/ml: Susceptible Proteus mirabilis Levofloxacin JEZ <=0.12 ug/ml: Susceptible Proteus mirabilis Nitrofurantoin JEZ 128 ug/ml: Resistant Proteus mirabilis Trimethoprim/Sulfame thoxazo le JEZ <=20 ug/ml: Susceptible Klebsiella pneumoniae ssp pneumoniae Amoxicillin/Clavulanate JEZ <=2 ug/ml: Susceptible Klebsiella pneumoniae ssp pneumoniae Ampicillin/Sulbactam JEZ 4 ug/ml: Susceptible Klebsiella pneumoniae ssp pneumoniae Piperacillin/Tazobactam JEZ 8 ug/ml: Susceptible Klebsiella pneumoniae ssp pneumoniae Cefazolin (Urine) JEZ 2 ug/ml: Susceptible Klebsiella pneumoniae ssp pneumoniae Cefoxitin JEZ <=4 ug/ml: Susceptible Klebsiella pneumoniae ssp pneumoniae Ceftazidime JEZ <=0.5 ug/ml: Susceptible Klebsiella pneumoniae ssp pneumoniae Ceftriaxone JEZ <=0.25 ug/ml: Susceptible Klebsiella pneumoniae ssp pneumoniae Cefepime JEZ <=0.12 ug/ml: Susceptible Klebsiella pneumoniae ssp pneumoniae Meropenem JEZ <=0.25 ug/ml: Susceptible Klebsiella pneumoniae ssp pneumoniae Amikacin JEZ <=1 ug/ml: Susceptible Klebsiella pneumoniae ssp pneumoniae Gentamicin JEZ <=1 ug/ml: Susceptible Klebsiella pneumoniae ssp pneumoniae Ciprofloxacin JEZ <=0.06 ug/ml: Susceptible Klebsiella pneumoniae ssp pneumoniae Levofloxacin JEZ <=0.12 ug/ml: Susceptible Klebsiella pneumoniae ssp pneumoniae Nitrofurantoin JEZ <=16 ug/ml: Susceptible Klebsiella pneumoniae ssp pneumoniae Trimethoprim/Sulfamethoxazo le JEZ <=20 ug/ml: Susceptible Paloma Perry MD LAB MICROBIOLOGY - GENER AL ORDERABLES Final Result [facility] [address] [place] [address], * [place] urine culture tube (09/13/2024 2:32 AM EDT) Extra Tube Hold for add-ons. 09/13/2024 5:01 AM EDT [facility] Comment:Auto resulted. Urine Indwelling urinary catheter / Unknown Non-blood Collection / Unknown 09/13/2024 2:32 AM EDT 09/13/2024 3:03 AM EDT Paloma Perry MD LAB URINE ORDERABLES Fin al Result [facility] [address] [place] [address], [place] [phone] * (ABNORMAL) Urinalysis with reflex microscopic and culture (09/13/2024 2:32 AM EDT) Specific [place] Urine 1.020 1.003 - 1.030 LAB URINALYSIS - AUTOMATED METHOD 09/13/2024 3:25 AM [facility] pH, Urine 8.0 5.0 - 8.0 pH LAB URINALYSIS - AUTOMATED METHOD 09/13/2024 3:25 AM [facility] Leukocytes, Urine Moderate(A) Negative LAB URINALYSIS - AUTOMATED METHOD 09/13/2024 3:25 AM [facility] Nitrite, Urine Positive(A) Negative LAB URINALYSIS - AUTOMATED METHOD 09/13/2024 3:25 AM [facility] Protein, Urine >=300(A) <=Trace mg/dL LAB URINALYSIS - AUTOMATED METHOD 09/13/2024 3:25 AM [facility] Glucose, Urine >=1000(A) Negative mg/dL LAB URINALYSIS - AUTOMATED METHOD 09/13/2024 3:25 AM [facility] Ketones, Urine Negative Negative mg/dL LAB URINALYSIS - AUTOMATED METHOD 09/13/2024 3:25 AM [facility] Urobilinogen , Urine 0.2 0.2 - 1.0 mg/dL LAB URINALYSIS - AUTOMATED METHOD 09/13/2024 3:25 AM [facility] Bilirubin, Urine Small(A) Negative LAB URINALYSIS - AUTOMATED METHOD 09/13/2024 3:25 AM [facility] Blood, Urine Large(A) Negative LAB URINALYSIS - AUTOMATED METHOD 09/13/2024 3:25 AM EDT [facility] RBC, Urine 100(H) 0 - 4 /HPF 09/13/2024 3:25 AM EDT [facility] WBC, Urine 100(H) 0 - 4 /HPF 09/13/2024 3:25 AM EDT [facility] Squamous Epithelial, Urine 4 0 - 60 /LPF 09/13/2024 3:25 AM EDT [facility] Bacteria, Urine Moderate(A) Negative /HPF 09/13/2024 3:25 AM EDT [facility] Hyaline Casts, Urine 4(H) 0 - 3 /LPF 09/13/2024 3:25 AM EDT [facility] Urine Indwelling urinary catheter / Unknown Non-blood Collection / Unknown 09/13/2024 2:32 AM EDT 09/13/2024 3:03 AM EDT us Paloma Perry MD LAB URINE ORDERABLES Fin al Result [facility] [address] [place] [address], * Respiratory virus panel molecular study (09/13/2024 1:36 AM EDT) Adenovirus Detection by PCR Not Detected Not Detected LAB MICROBIOLOGY METHOD 09/13/2024 2:48 AM EDT [facility] Influenza A PCR Not Detected Not Detected LAB MICROBIOLOGY METHOD 09/13/2024 2:48 AM EDT [facility] Influenza B PCR Not Detected Not Detected LAB MICROBIOLOGY METHOD 09/13/2024 2:48 AM EDT [facility] Coronavirus 229E Not Detected Not Detected LAB MICROBIOLOGY METHOD 09/13/2024 2:48 AM EDT [facility] Coronavirus HKU1 Not Detected Not Detected LAB MICROBIOLOGY METHOD 09/13/2024 2:48 AM EDT [facility] Coronavirus OC43 Not Detected Not Detected LAB MICROBIOLOGY METHOD 09/13/2024 2:48 AM EDT [facility] Coronavirus NL63 Not Detected Not Detected LAB MICROBIOLOGY METHOD 09/13/2024 2:48 AM EDT [facility] Parainfluenza Virus 1 Not Detected Not Detected LAB MICROBIOLOGY METHOD 09/13/2024 2:48 AM EDT [facility] Parainfluenza Virus 2 Not Detected Not Detected LAB MICROBIOLOGY METHOD 09/13/2024 2:48 AM EDT [facility] Parainfluenza Virus 3 Not Detected Not Detected LAB MICROBIOLOGY METHOD 09/13/2024 2:48 AM EDT [facility] Parainfluenza Virus 4 Not Detected Not Detected LAB MICROBIOLOGY METHOD 09/13/2024 2:48 AM EDT [facility] RSV PCR Not Detected Not Detected LAB MICROBIOLOGY METHOD 09/13/2024 2:48 AM EDT [facility] Human Metapneumovirus A and B Not Detected Not Detected LAB MICROBIOLOGY METHOD 09/13/2024 2:48 AM EDT [facility] Rhinovirus/Entero virus Not Detected Not Detected LAB MICROBIOLOGY METHOD 09/13/2024 2:48 AM EDT [facility] Bordetella pertussis Not Detected Not Detected LAB MICROBIOLOGY METHOD 09/13/2024 2:48 AM EDT [facility] Bordetella parapertussis Not Detected Not Detected LAB MICROBIOLOGY METHOD 09/13/2024 2:48 AM EDT [facility] Mycoplasma pneumo by PCR Not Detected Not Detected LAB MICROBIOLOGY METHOD 09/13/2024 2:48 AM EDT [facility] Chlamydia pneumoniae Not Detected Not Detected LAB MICROBIOLOGY METHOD 09/13/2024 2:48 AM EDT [facility] SARS COV-2 Not Detected Not Detected LAB MICROBIOLOGY METHOD 09/13/2024 2:48 AM EDT [facility] Swab Both anterior nares / Unknown Non-blood Collection / Unknown 09/13/2024 1:36 AM EDT 09/13/2024 1:50 AM EDT Narrative [facility] - 09/13/2024 2:48 AM EDT Testing was performed using the [employer] Respiratory Pathogen PCR Assay. All results must be correlated with the clinical findings. Results should not be used as the sole basis for diagnosis. False Negative results may occur from the presence of sequence variants in the region targeted by the assay or the presence of inhibitors. Results may be affected by concurrent antiviral/antimicrobial therapy or levels of organisms that are below the limit of detection. Paloma Perry MD LAB MICROBIOLOGY - GENER AL ORDERABLES Final Result [facility] [address] [place] [address], * ECG-Annotated (09/13/2024) us Provider Onbase ECG ORDERABLES Final Result * (ABNORMAL) CBC auto differential (09/12/2024 7:05 PM EDT) WBC 6.0 4.8 - 10.8 K/mcL LAB HEMETOLOGY METHOD 09/12/2024 7:44 PM EDT [facility] RBC 4.70 4.50 - 5.50 M/mcL LAB HEMETOLOGY METHOD 09/12/2024 7:44 PM EDT [facility] Hemoglobin 13.1(L) 13.5 - 17.5 g/dL LAB HEMETOLOGY METHOD 09/12/2024 7:44 PM EDT [facility] Hematocrit 39.6(L) 42.0 - 54.0 % LAB HEMETOLOGY METHOD 09/12/2024 7:44 PM EDT [facility] MCV 85.0 79.0 - 98.0 FL LAB HEMETOLOGY METHOD 09/12/2024 7:44 PM EDT [facility] MCH 28.1 27.0 - 32.0 pcg LAB HEMETOLOGY METHOD 09/12[facility]2024 7[facility] MCHC 33.1 32.0 - 37.0 g/dL LAB HEMETOLOGY METHOD 09/12/2024 7:44 [facility] RDW 13.9 11.0 - 15.0 % LAB HEMETOLOGY METHOD 09/12/2024 7:44 PM EDT [facility] Platelets 237 130 - 400 K/mcL LAB HEMETOLOGY METHOD 09/12/2024 7:44 PM [facility] MPV 10.2 7.0 - 11.0 FL LAB HEMETOLOGY METHOD 09/12/2024 7:44 PM [facility] NRBC 0.0 <1.0 % LAB HEMETOLOGY METHOD 09/12/2024 7:44 PM [facility] NRBC Absolute 0.00 <0.10 K/mcL LAB HEMETOLOGY METHOD 09/12/2024 7:44 PM [facility] Neutrophils Relative 52.6 % LAB HEMETOLOGY METHOD 09/12/2024 7:44 PM [facility] Lymphocytes Relative 26.1 % LAB HEMETOLOGY METHOD 09/12/2024 7:44 PM [facility] Monocytes Relative 14.9 % LAB HEMETOLOGY METHOD 09/12/2024 7:44 PM [facility] Eosinophils Relative 4.4 % LAB HEMETOLOGY METHOD 09/12/2024 7:44 PM [facility] Basophils Relative 1.2 % LAB HEMETOLOGY METHOD 09/12/2024 7:44 PM [facility] Immature Granulocytes Relative 0.8 % LAB HEMETOLOGY METHOD 09/12/2024 7:44 PM EDT [facility] Neutrophils Absolute 3.14 1.50 - 7.00 K/mcL LAB HEMETOLOGY METHOD 09/12/2024 7:44 PM EDT [facility] Lymphocytes Absolute 1.56 1.00 - 5.00 K/mcL LAB HEMETOLOGY METHOD 09/12/2024 7:44 PM EDT [facility] Monocytes Absolute 0.89 0.20 - 1.00 K/mcL LAB HEMETOLOGY METHOD 09/12/2024 7:44 PM EDT [facility] Eosinophils Absolute 0.26 0.00 - 0.50 K/mcL LAB HEMETOLOGY METHOD 09/12/2024 7:44 PM EDT [facility] Basophils Absolute 0.07 0.00 - 0.20 K/mcL LAB HEMETOLOGY METHOD 09/12/2024 7:44 PM EDT [facility] Immature Granulocytes Absolute 0.05(H) 0.00 - 0.03 K/mcL LAB HEMETOLOGY METHOD 09/12/2024 7:44 PM EDT [facility] Blood Venous blood specimen / Unknown Venipuncture / Unknown 09/12/2024 7:05 PM EDT 09/12/2024 7:34 PM EDT us Paloma Perry MD LAB BLOOD ORDERABLES Fin al Result [facility] [address] [place] [address], * Magnesium (09/12/2024 7:05 PM EDT) Magnesium 1.9 1.9 - 2.6 mg/dL LAB CHEMISTRY METHOD 09/12/2024 8:05 PM EDT [facility] Blood Venous blood specimen / Unknown Venipuncture / Unknown 09/12/2024 7:05 PM EDT 09/12/2024 7:34 PM EDT us Paloma Perry MD LAB BLOOD ORDERABLES Fin al Result [facility] [address] [place] [address], [place] [phone] * (ABNORMAL) Basic metabolic panel (09/12/2024 7:05 PM EDT) Sodium 132(L) 133 - 145 mmol/L LAB CHEMISTRY METHOD 09/12/2024 8:05 PM [facility] Potassium 4.3 3.5 - 5.5 mmol/L LAB CHEMISTRY METHOD 09/12/2024 8:05 PM [facility] Chloride 100 96 - 110 mmol/L LAB CHEMISTRY METHOD 09/12/2024 8:05 PM [facility] CO2 25 21 - 32 mmol/L LAB CHEMISTRY METHOD 09/12/2024 8:05 PM [facility] Anion Gap 7 3 - 11 LAB CHEMISTRY METHOD 09/12/2024 8:05 PM [facility] Glucose 216(H) 70 - 100 mg/dL LAB CHEMISTRY METHOD 09/12/2024 8:05 PM [facility] BUN 31(H) 5 - 25 mg/dL LAB CHEMISTRY METHOD 09/12/2024 8:05 PM [facility] Creatinine 1.87(H) 0.70 - 1.30 mg/dL LAB CHEMISTRY METHOD 09/12/2024 8:05 PM [facility] eGFR 39(L) >=60 mL/min/1. 73m2 LAB CHEMISTRY METHOD 09/12/2024 8:05 PM [facility] Comment:Calculation based on the??Chronic Kidney Disease Epidemiology Collaboration (CKD-EPI) equation refit??without adjustment for race. BUN/Creatinine Ratio 16.6 LAB CHEMISTRY METHOD 09/12/2024 8:05 PM EDT [facility] Calcium 9.7 8.5 - 10.5 mg/dL LAB CHEMISTRY METHOD 09/12/2024 8:05 PM EDT [facility] Blood Venous blood specimen / Unknown Venipuncture / Unknown 09/12/2024 7:05 PM EDT 09/12/2024 7:34 PM EDT Paloma Perry MD LAB BLOOD ORDERABLES Fin al Result Performing Organization Address [facility]/ZIP Co de Phone Number [facility] [address] [place] [address], [place] [phone] * ECG 12 lead (09/12/2024 7:03 PM EDT) Ventricular Rate ECG 111 BPM GEMUSE Atrial Rate 111 BPM GEMUSE P-R Interval 194 ms GEMUSE QRS Duration 118 ms GEMUSE Q-T Interval 342 ms GEMUSE QTc 465 ms GEMUSE P Wave Otoe 61 degrees GEMUSE R Otoe -71 degrees GEMUSE T Otoe 36 degrees GEMUSE ECG Interpretation Sinus tachycardia Right bundle branch block Left anterior fascicular block Bifascicular block Abnormal ECG No previous ECGs available Confirmed by Arnav GARCIA YUFENG ([id number]) on 09/12/2024 7:11:46 PM GEMUSE 09/12/2024 7:03 PM EDT 09/12/2024 7:11 PM EDT Paloma Perry MD ECG ORDERABLES Final Re sult GEMUSE documented in this encounter Visit Diagnoses Diagnosis Hemorrhagic cystitis- Primary Unspecified cystitis Acute on chronic renal insufficiency Acute kidney failure, unspecified documented in this encounter Administered Medications Inactive Administered Medications - up to 3 most recent administrations Medication Order MAR Action Action Date Dose Rate Site cephalexin (KEFLEX) capsule 500 mg 500 mg, oral, Once, On Thu09/13/24 at 0511, For 1 dose, Indication: Urinary Tract/Genitourinary Given 09/13/2024 5:43 AM EDT 500 mg documented in this encounter Active and Recently Administered Medications Times are shown in EDT. Scheduled Medication Order 09/11/2024 09/12/2024 09/13/2024 cephalexin (KEFLEX) capsule 500 mg (COMPLETED) 500 mg, oral, Once, On 09/13/24 at 0511, For 1 dose, Indication: Urinary Tract/Genitourinary 0543 (Given - Provid er: Camelia Loya RN) documented in this encounter Orders Medications Ordered That Joe ht Not Have Been Administered Count Last Ordered Date First Ordered Date cephalexin (KEFLEX) capsule 500 mg 1 2024 documented in this encounter Additional Health Concerns Infection Onset Date Last Indicated Resolved Time Respiratory Rule-Out 09/13/2024 09/13/2024 025 2:48 AM EDT COVID-19 Rule-Out 09/13/2024 09/13/2024 09/13/2024 2:48 AM EDT documented as of this encounter Care Teams [employer] Founder Relationship Specialty Start Date End Date [facility] [address] [id number] PCP - General 01/05/24 documented as of this encounter
--- OUTSIDE RECORDS SUMMARY | 2024-09-16 15:10 | XMS_ITS | Encounter Summary ---
Author Organization [email or web address] Address [address] [facility] [address] [place] [address] Care Team Providers Care Castings Drafter Name Role Phone Tg Milner [facility] Primary Care Provider [phone] Reason for Visit * Reason Comments Diabetes Encounter Details Date Type Department Care Team (Latest Contact Info) Description 09/15/2024 10:00 AM EDT Clinical Support [facility] [address] [place] [address] Heidi Silva RN [address] [place] [address] Type 2 diabetes mellitus with stage 3b chronic kidney disease, with long-term current use of insulin ([facility]); Healthcare maintenance Social History Tobacco Use Types Packs/Day Years [...] AM EDT documented as of this encounter Progress Notes * Heidi Silva RN - 09/15/2024 10:00 AM EDT Images from the original note were not included. SUBJECTIVE: Brandt Whaley is a 63 y.o. year old male who presents for initial 1 month CGM f/up appt. Preferred language for medical information: Staff Radiation Therapist needed: Yes Symptoms: diabetic polyneuropathy, polyuria, polydipsia, or blurred vision No CGM device: CGM DEVICE: Freestyle May Current Outpatient Medications Medication Sig Dispense Refill acetaminophen (Tylenol) 500 MG tablet Take 1 tablet (500 mg) by mouth every 6 (six) hours if neededfor mild pain. 30 tablet 2 albuterol 108 (90 Base) MCG/ACT inhaler Inhale 2 puffs every 4 (four) hours if needed for wheezing.18 g 0 Alcohol Swabs (Alcohol Pads) 70 % pads Use as directed 100 each 11 amLODIPine (Norvasc) 10 MG tablet Take 1 tablet (10 mg) by mouth Once per day. 30 tablet 11 Aspirin Low Dose 81 MG EC tablet TAKE 1 TABLET BY MOUTH EVERY DAY 90 tablet 3 Continuous Glucose Cone Runner (FreeStyle May 2 [place]) device Use as directed 1 each 0 Continuous Glucose Sensor (FreeStyle May 2 Sensor) misc Use as directed 2 each 3 cyclobenzaprine (Flexeril) 10 MG tablet Take 1 tablet by mouth in the morning and 1 tablet at noon and 1 tablet in the evening. Diclofenac Sodium 1 % gel APPLY 2 GRAMS TOPICALLY TO AFFECTED AREA(S) TWICE DAILY 100 g 2 dulaglutide (Trulicity) 4.5 MG/0.5ML solution pen-injector Inject 4.5 mg under the skin 1 (one) time per week. 4 each 11 gabapentin (Neurontin) 800 MG tablet Take 1 tablet (800 mg) by mouth every 8 (eight) hours. 90 tablet 0 glucose blood (FREESTYLE LITE) test strip TEST BLOOD SUGAR ONCE DAILY IN THE MORNING 50 strip 11 hydrocortisone (Proctozone-HC) 2.5 % rectal cream Apply topically every 12 (twelve) hours. insulin glargine (Lantus SoloStar) 100 UNIT/ML pen Inject 6 Units under the skin at bedtime. 3 mL 12 insulin pen needle 32G x 4 mm misc Use as instructed 100 each 12 Jardiance 25 MG TAKE 1 TABLET BY MOUTH EVERY MORNING 90 tablet 1 latanoprost (Xalatan) 0.005 % ophthalmic solution PLACE 1 DROP IN EACH EYE EVERY NIGHT melatonin 5 MG tablet TAKE 2 TABLETS BY MOUTH EVERY DAY AT BEDTIME NEEDED FOR SLEEP 180 tablet 3 metFORMIN XR (Glucophage-XR) 500 MG 24 hr tablet TAKE 2 TABLETS BY MOUTH TWICE DAILY IN THE MORNINGAND EVENING WITH MEALS 360 tablet 3 metoprolol succinate XL (Toprol-XL) 200 MG 24 hr tablet TAKE 1 TABLET BY MOUTH EVERY DAY FOR BLOOD PRESSURE 90 tablet 3 pantoprazole (ProtoNix) 20 MG EC tablet TAKE 1 TABLET BY MOUTH EVERY DAY IN THE MORNING (Patient not taking: Reported on 04/21/2024) 90 tablet 3 pravastatin (Pravachol) 40 MG tablet TAKE 1 TABLET BY MOUTH AT BEDTIME 30 tablet 11 simethicone (Gas-X Extra Strength) 125 MG capsule Take one capsule as needed every 8 hours PRN spironolactone-hydroCHLOROthiazide (Aldactazide) 25-25 MG tablet Take 1 tablet (25 mg) by mouth Once per day. 90 tablet 3 triamcinolone (Nasacort) 55 MCG/ACT nasal inhaler INSTILL 2 SPRAYS IN EACH NOSTRIL ONCE DAILY IN THE MORNING 16.9 mL 11 No current facility-administered medications for this visit. Patient Active Problem List Diagnosis Date Noted Pain in right lumbar region of back 08/31/2024 Right flank pain 08/31/2024 Calcaneal bursitis (heel), right 08/31/2024 Type 2 diabetes mellitus with stage 3 chronic kidney disease, with long-term current use of insulin([facility]) 08/31/2024 Class 1 obesity due to excess calories with serious comorbidity and body mass index (BMI) of 34.0 to 34.9 in adult 08/31/2024 Dietary counseling 08/31/2024 Exercise counseling 08/31/2024 Open wound of left great toe 05/19/2024 Diabetic foot ([facility]) 05/19/2024 Productive cough 04/21/2024 Diabetic polyneuropathy associated with type 2 diabetes mellitus ([facility]) 11/09/2023 BPPV (benign paroxysmal positional vertigo) 08/17/2023 Glaucoma 01/21/2023 Healthcare maintenance 11/26/2022 Essential hypertension 06/14/2018 Peripheral venous insufficiency 06/14/2018 Nonalcoholic steatohepatitis 01/13/2017 Osteoarthritis involving multiple joints on both sides of body 01/13/2017 Obstructive sleep apnea syndrome 06/23/2012 Hyperlipidemia 06/23/2012 Type 2 diabetes mellitus with circulatory disorder, without long-term current use of insulin ([facility]) 03/15/2012 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 Brandt Whaley does confirm adherence to medications for diabetes listed above. Recent hospitalizations: ED 09/01/24 and 09/13/24 Social history as reported by patient: Caffeine use: 1 cup of coffee/ morning Social History Tobacco Use Smoking Status Former Types: Cigarettes Passive exposure: Past Smokeless Tobacco Never Social History Substance and Sexual Activity Alcohol Use Never Social History Substance and Sexual Activity Drug Use Never OBJECTIVE: Lab Results Component Value Date ALT 44 (H) 09/01/2024 AST 33 09/01/2024 LDLCHOLCAL 77 01/22/2024 LDLCHOL 77 09/01/2022 TRIG 291 (H) 01/22/2024 K 4.9 09/01/2024 NA 142 09/01/2024 MICROALBCREU 15.4 01/22/2024 CREATININE 1.48 (H) 09/01/2024 EGFR 48 09/01/2024 HGBA1C 8.2 (A) 07/22/2024 HGBA1C 8.6 (H) 12/11/2023 HGBA1C 8.9 (A) 12/11/2023 Lab Results Component Value Date HGBA1C 8.2 (A) 07/22/2024 POCGLU 145 07/22/2024 Pt. Up to date of labs except for vitamin B-12 due to metformin use (not done within past 3 years) and hepatitis B titers (no history hepatitis B vaccines or titers) Immunization History Administered Date(s) Administered Pneumococcal Polysaccharide PPSV23 09/03/2009 TD (adult), 2 Lf tetanus toxoid, preservative free, adsorbed 12/24/2018 Tdap 09/01/2009 Pt. Overdue for PCV20 BP Readings from Last 4 Encounters: 08/31/24 (!) 148/84 07/22/24 (!) 140/74 05/19/24 133/77 04/21/24 116/65 Pulse Readings from Last 4 Encounters: 08/31/24 71 07/22/24 73 05/19/24 80 04/21/24 61 Eye exam in the past 12 months Yes, pt. Reports he goes to [facility] Foot exam in the past 12 months Yes (October 2023) CGM sensor data: Time in range: 60% Hypoglycemic occurrences: none Hyperglycemic occurrences: High range 37% of the time, very high 3% Concentrated around time periods 4-5pm, then again at 9-10pm Potential reasons: dinner high in carbs (pt. Reports he has white rice, beans, lean protein), bedtime snacks including fruit, juice, cereal Pt. Reports he eats minimal red meat (beef/ pork) GOALS: Healthy eating/diet: Replace some portion of white rice at dinner with green salad with vinegar based dressing and/or larger portion of lean protein (chicken/ turkey) Already working on replacing juice with no sugar juice Pt. Reports he does not like brown rice, unsweetened cereal, does not eat nuts due to poor dentation, therefore adding these into diet is not realistic at this time Glucose monitoring: Increase CGM active time from 68% to 70% Pt.'s goal to include dietary changes and possible medication changes to get TIR from 60% to 70% bytime of next PCP appt 10/19/24 EDUCATION: The following was reviewed with Brandt Whaley and they confirmed understanding Healthy diet and lifestyle Discussed role of A1c monitoring, A1c and SMBG goals Reviewed risks of macrovascular and microvascular complications of uncontrolled T2DM Reviewed signs, symptoms and treatments of hypoglycemia to which patient confirmed understanding ASSESSMENT: Achieve A1C of <7.0% while minimizing episodes of hypoglycemia PLAN: Will send message to PCP in regards to Today's findings and call patient with any change to plan ofcare. Labs ordered Yes (b-12 and hepatitis B antibody- pt. To get done prior to PCP appt. 10/19/24) IZ given- pt. Declines PCV20 Brandt Mohamud Judd agrees to try lifestyle goals listed above and at least 70% usage on CGM. Follow up already scheduled with PCP for 1 month Future Appointments Date Time Provider Department Center 10/19/2024 11:15 AM KRISTY Barker [facility] Heidi Silva RN documented in this encounter Plan of Treatment Upcoming Encounters Date Type Department Care Team (Late st Contact Info) Description 10/19/2024 11:15 AM EDT Office Visit [facility] [address] [place] [phone] [place] [facility] [address] [place] [address] Scheduled Orders Name Type Priority Associated Diagnoses Orde r Schedule Vitamin B12 Lab Routine Type 2 diabetes mellitus with stage 3b chronic kidney disease, with long-term current use of insulin (CMS/HCC) Expected: 09/15/2024 (Approximate), Expires: 09/15/2025 Hepatitis B Surface Antibody, Qualitative Lab Routine Healthcare maintenance Expected: 09/15/2024 (Approximate), Expires: 09/15/2025 documented as of this encounter Visit Diagnoses Diagnosis Type 2 diabetes mellitus with stage 3b chronic kidney disease, with long-term current use of insulin (CMS/HCC) Healthcare maintenance documented in this encounter Additional Health Concerns Assessment Noted Time PHQ-9 Depression Total Score: 0 07/22/19 10:03 AM EST documented as of this encounter Care Teams Castings Drafter Relationship Specialty Start Date End Date AnniaTg dalal FNP [address] [place] [phone] PCP - General Family Medicine 04/28/22 documented as of this encounter
--- OUTSIDE RECORDS SUMMARY | 2024-09-16 15:10 | XMS_ITS | Encounter Summary ---
Author Organization [facility] Address [address] [place] [id number] Care Team Providers Care Cloth Roll Winder Name Role Phone Tg Milner SENIOR DESIGN[facility] Primary Care Provider [phone] Reason for Visit * Reason Comments Med Refill Encounter Details Date Type Department Care Team (Late st Contact Info) Description 06/18/2022 Refill [facility] [address] [place], [place] [id number] Tg Milner FNP [address] [place] [address] Type 2 diabetes mellitus without complication, without long-term current use of insulin (CMS/HCC) Social History Tobacco Use Types Packs/Day Years [...] Description 10/19/2024 11:15 AM EDT Office Visit [facility] [address] [place] [id number] Tg Milner FNP [address] [place] [address] documented as of this encounter Visit Diagnoses Diagnosis Type 2 diabetes mellitus without complication, without long-term current use of insulin (CMS/HCC) documented in this encounter Care Teams Cloth Roll Winder Relationship Specialty Start Date End Date Tg Milner FNP [address] [place] [id number] PCP - General Family Medicine 04/28/22 documented as of this encounter
--- OUTSIDE RECORDS SUMMARY | 2024-09-16 15:10 | XMS_ITS | Encounter Summary ---
Author Organization [employer] Address [address] [facility] 7[address] [place] [address] Care Team Providers Care Sand Mixer Machine Name Role Phone [facility] Primary Care Provider [phone] Reason for Visit * Reason Comments Med Refill Encounter Details Date Type Department Care Team ([facility] st Contact Info) Description 07/01/2023 Refill [facility] [address] [place] [address] [facility] [address] [place] [address] Primary osteoarthritis of right knee Social History [...] Description 10/19/2024 11:15 AM EDT Office Visit [facility] [address] [place] [address] Tg Milner FNP [address] [place] [address] documented as of this encounter Visit Diagnoses Diagnosis Primary osteoarthritis of right knee documented in this encounter Additional Health Concerns Assessment Noted Time PHQ-9 Depression Total Score: 0 11/25/19 23 3:32 PM EDT documented as of this encounter Care Teams Sand Mixer Machine Relationship Specialty Start Date End Date Tg Milner FNP [address] [place] [address] PCP - General Family Medicine 04/28/22 documented as of this encounter
--- OUTSIDE RECORDS SUMMARY | 2024-09-16 15:10 | XMS_ITS | Clinical Summary ---
Author Organization 175 [facility] Address [address] [place] [address] Phone Care Team Providers Care Construction Technician Name Role Phone [facility] Primary Care Provider [phone] Allergies No known active allergies Medications acetaminophen (TYLENOL) 325 mg tablet Take 2 Tablets by mouth every 6 hours as needed for Pain (mild to moderate pain) for up to 10 days. 07/03/2022 Active metformin HCl (METFORMIN ORAL) Take by mouth. Active LISINOPRIL ORAL Take by mouth. Active GABAPENTIN ORAL Take by mouth. Active aspirin 81 mg EC tablet Take 1 Tablet by mouth daily. Active METOPROLOL SUCCINATE ORAL Take by mouth. Active SIMVASTATIN ORAL Take by mouth. Active dulaglutide (Trulicity) 0.75 mg/0.5 mL pen injector injection Inject into the skin. Active cephalexin (KEFLEX) 500 mg capsule Take 1 capsule (500 mg total) by mouth 4 (four) times a day for 10 days. 40 each 09/13/2024 09/24/19 25 Active lactulose (CHRONULAC) solution Take 30 mL (20 g total) by mouth 3 (three) times a day for 3 days. 270 mL 09/13/2024 09/17/19 25 Active dicyclomine (BENTYL) 20 mg tablet Take 1 tablet (20 mg total) by mouth 2 (two) times a day for 10 days. 20 tablet 09/13/2024 09/24/19 25 Active Encounters Date Type Department Care Team Description 09/13/2024 1:25 AM EDT - 09/13/2024 6:03 AM EDT [facility] Emergency [address] [place] [address] Paloma Perry MD Hemorrhagic cystitis (Primary Dx); Acute on chronic renal insufficiency Discharge Disposition: Home or Self Care from Last 3 Months Medical History Medical History Date Comments Hypertension Social History Tobacco Use Types Packs/Day Years Used Date Smoking Tobacco: Former Cigarettes Smokeless Tobacco: Never Tobacco Cessation:Counseling Given: Not Answered Sex and Gender Information Value Date Recorded Sex Assigned at Male 09/13/2024 2:04 AM EDT Legal Sex Male 2:57 AM EST Gender Identity Male 09/13/2024 2:04 AM EDT Sexual Orientation Choose not to disclose 2024 2:04 AM EDT Obstetrics History Last Filed Vital Signs Vital Sign Reading [...] Mass Index 33.58 09/12/2024 6:49 PM EDT Plan of Treatment Health Maintenance Due Date Last Done Comments Diabetes: Annual Foot Exam 1968 Diabetes: Annual Retina Eye Exam 1968 Hepatitis A Vaccines (1 of 2 - Risk 2-dose series) 1977 Zoster Vaccines (1 of 2) 2008 Pneumococcal Vaccine: 50+ Years (2 of 2 - PCV) 09/03/2010 09/03/2009 Hepatitis B Vaccines (1 of 3 - Risk 3-dose series) 2018 RSV Immunization Adult Patients (1 - Risk 60-74 years 1-dose series) 2018 Abdominal Aortic Aneurysm (AAA) Screen 05/04/2022 Colorectal Cancer Screening: Colonoscopy 05/04/2022 Medicare Annual Wellness Visit 05/04/2022 Social Influencers of Health Screening 05/04/2022 Falls Risk Assessment 10/22/2023 COVID-19 Vaccine (1 - 2023-2 5 season) 2024 Diabetes: Annual Urine Albumin-Creatinine Ratio (uACR) 09/13/2024 Diabetes: Blood Sugar Contro l Test (HGBA1C) 01/19/2025 07/22/2024 Influenza Vaccine (Season Ended) 2025 Depression Screening 07/22/2025 07/22/2024 Diabetes: Annual GFR (Glomerular Filtration Rate) 09/12/2025 09/12/2024, 09/01/2024 Hypertension/CHF/CAD Annual BMP Blood Test 09/12/2025 09/12/2024, 09/01/2024 DTaP,Tdap,and Td Vaccines (3 - Td or Tdap) 12/24/2028 12/24/2018, 09/01/2009 Cholesterol Screening (Lipid Panel) 01/21/2029 01/22/2024 Pneumococcal Vaccine: Pediatrics (0 to 5 Years) and At-Risk Patients (6 to 64 Years) Aged Out 09/03/2009 No longer eligible b ased on patient's age to complete this topic Hepatitis C Screening Completed 09/01/2022 HIB Vaccines Aged Out No longer eligi ble based on patient's age to complete this topic HPV Vaccines Aged Out No longer eligi ble based on patient's age to complete this topic IPV Vaccines Aged Out No longer eligi ble based on patient's age to complete this topic MMR Vaccines Aged Out No longer eligi ble based on patient's age to complete this topic Meningococcal ACWY Vaccine Aged Out N o longer eligible based on patient's age to complete this topic Meningococcal B Vaccine Aged Out No l onger eligible based on patient's age to complete this topic RSV Immunization Patients Under 20 months Aged Out No longer eligible b ased on patient's age to complete this topic Varicella Vaccines Aged Out No longer eligible based on patient's age to complete this topic Procedures Procedure Name Priority Date/Time Associated Diagnosis Comments KENYON URINE CULTURE TUBE STAT 09/13/2024 2:32 AM EDT URINALYSIS WITH REFLEX MICROSCOPIC AND CULTURE STAT 09/13/2024 2:32 AM EDT URINALYSIS WITH REFLEX MICROSCOPIC AND CULTURE STAT 09/13/2024 2:32 AM EDT CULTURE URINE STAT 09/13/2024 2:32 AM EDT RESPIRATORY VIRUS PANEL MOLECULAR STUDY STAT 09/13/2024 1:36 AM EDT ECG ANNOTATED 09/13/2024 CBC WITH AUTO DIFFERENTIAL STAT 09/12/2024 7:05 PM EDT MAGNESIUM STAT 09/12/2024 7:05 PM EDT BASIC METABOLIC PANEL STAT 09/12/2024 7:05 PM EDT CBC AND DIFFERENTIAL STAT 09/12/2024 7:05 PM EDT ECG 12-LEAD STAT 09/12/2024 7:03 PM EDT from Last 3 Months Results * (ABNORMAL) Urinalysis with reflex microscopic and culture (09/13/2024 2:32 AM EDT) [facility] Specific [place] Urine 1.020 1.003 - 1.030 LAB URINALYSIS - AUTOMATED METHOD 09/13/2024 3:25 AM [facility] pH, Urine 8.0 5.0 - 8.0 pH LAB URINALYSIS - AUTOMATED METHOD 09/13/2024 3:25 AM [facility] Leukocytes, Urine Moderate(A) Negative LAB URINALYSIS - AUTOMATED METHOD 09/13/2024 3:25 AM [facility] Nitrite, Urine Positive(A) Negative LAB URINALYSIS - AUTOMATED METHOD 09/13/2024 3:25 AM [facility] Protein, Urine >=300(A) <=Trace mg/dL LAB URINALYSIS - AUTOMATED METHOD 09/13/2024 3:25 AM [facility] Glucose, Urine >=1000(A) Negative mg/dL LAB URINALYSIS - AUTOMATED METHOD 09/13/2024 3:25 AM [facility] Ketones, Urine Negative Negative mg/dL LAB URINALYSIS - AUTOMATED METHOD 09/13/2024 3:25 AM EDT [facility] Urobilinogen , Urine 0.2 0.2 - 1.0 mg/dL LAB URINALYSIS - AUTOMATED METHOD 09/13/2024 3:25 AM T [facility] Bilirubin, Urine Small(A) Negative LAB URINALYSIS - AUTOMATED METHOD 09/13/2024 3:25 AM EDT [facility] Blood, Urine Large(A) Negative LAB URINALYSIS - AUTOMATED METHOD 09/13/2024 3:25 AM T [facility] RBC, Urine 100(H) 0 - 4 /HPF 09/13/2024 3:25 AM EDT [facility] WBC, Urine 100(H) 0 - 4 /HPF 09/13/2024 3:25 AM T [facility] Squamous Epithelial, Urine 4 0 - 60 /LPF 09/13/2024 3:25 AM T [facility] Bacteria, Urine Moderate(A) Negative /HPF 09/13/2024 3:25 AM T [facility] Hyaline Casts, Urine 4(H) 0 - 3 /LPF 09/13/2024 3:25 AM [facility] Urine Indwelling urinary catheter / Unknown Non-blood Collection / Unknown 09/13/2024 2:32 AM EDT 09/13/2024 3:03 AM EDT us Paloma Perry MD LAB URINE ORDERABLES Fin al Result [facility] [address] [place] [address], * Kenyon urine culture tube (09/13/2024 2:32 AM EDT) Extra Tube Hold for add-ons. 09/13/2024 5:01 AM EDT [facility] Comment:Auto resulted. Urine Indwelling urinary catheter / Unknown Non-blood Collection / Unknown 09/13/2024 2:32 AM EDT 09/13/2024 3:03 AM EDT us Paloma Perry MD LAB URINE ORDERABLES Fin al Result [facility] [address] [place] [address], * (ABNORMAL) Culture urine (09/13/2024 2:32 AM EDT) Culture, Urine >100,000 CFU/mL Proteus mirabilis(A) JEZ 09/16/2024 8:51 AM EDT [facility] Comment: Edited result: Previously reported as Proteus species on 09/14/2024 at 1010 EDT. Culture, Urine 10,000-49,000 CFU/mL Klebsiella pneumoniae ssp pneumoniae(A) JEZ 09/16/2024 8:51 AM EDT [facility] Comment: The organism value for this [...] pneumoniae Trimethoprim/Sulfamethoxazo le JEZ <=20 ug/ml: Susceptible us Paloma Perry MD LAB MICROBIOLOGY - GENER AL ORDERABLES Final Result [facility] [address] [place] [address], * Respiratory virus panel molecular study (09/13/2024 1:36 AM EDT) [facility] Adenovirus Detection by PCR Not Detected Not Detected LAB MICROBIOLOGY METHOD 09/13/2024 2:48 AM EDT [facility] Influenza A PCR Not Detected Not Detected LAB MICROBIOLOGY METHOD 09/13/2024 2:48 AM EDT [facility] Influenza B PCR Not Detected Not Detected LAB MICROBIOLOGY METHOD 09/13/2024 2:48 AM EDT [facility] Coronavirus 229E Not Detected Not Detected LAB MICROBIOLOGY METHOD 09/13/2024 2:48 AM EDT [facility] Coronavirus HKU1 Not Detected Not Detected LAB MICROBIOLOGY METHOD 09/13/2024 2:48 AM EDT [facility] Coronavirus OC43 Not Detected Not Detected LAB MICROBIOLOGY METHOD 09/13/2024 2:48 AM EDT [facility] Coronavirus NL63 Not Detected Not Detected LAB MICROBIOLOGY METHOD 09/13/2024 2:48 AM EDT [facility] Parainfluenza Virus 1 Not Detected Not Detected LAB MICROBIOLOGY METHOD 09/13/2024 2:48 AM EDT [facility] Parainfluenza Virus 2 Not Detected Not Detected LAB MICROBIOLOGY METHOD 09/13/2024 2:48 AM EDT [facility] Parainfluenza Virus 3 Not Detected Not Detected LAB MICROBIOLOGY METHOD 09/13/2024 2:48 AM EDT [facility] Parainfluenza Virus 4 Not Detected Not Detected LAB MICROBIOLOGY METHOD 09/13/2024 2:48 AM EDT [facility] RSV PCR Not Detected Not Detected LAB MICROBIOLOGY METHOD 09/13/2024 2:48 AM EDT [facility] Human Metapneumovirus A and B Not Detected Not Detected LAB MICROBIOLOGY METHOD 09/13/2024 2:48 AM EDT [facility] Rhinovirus/Entero virus Not Detected Not Detected LAB MICROBIOLOGY METHOD 09/13/2024 2:48 AM EDT [facility] Bordetella pertussis Not Detected Not Detected LAB MICROBIOLOGY METHOD 09/13/2024 2:48 AM EDT [facility] Bordetella parapertussis Not Detected Not Detected LAB MICROBIOLOGY METHOD 09/13/2024 2:48 AM EDT [facility] Mycoplasma pneumo by PCR Not Detected Not Detected LAB MICROBIOLOGY METHOD 09/13/2024 2:48 AM EDT [facility] Chlamydia pneumoniae Not Detected Not Detected LAB MICROBIOLOGY METHOD 09/13/2024 2:48 AM EDT [facility] SARS COV-2 Not Detected Not Detected LAB MICROBIOLOGY METHOD 09/13/2024 2:48 AM EDT [facility] Swab Both anterior nares / Unknown Non-blood Collection / Unknown 09/13/2024 1:36 AM EDT 09/13/2024 1:50 AM EDT Narrative [facility] - 09/13/2024 2:48 AM EDT Testing was performed using the linkedü Respiratory Pathogen PCR Assay. All results must [...] detection. Paloma Perry MD LAB MICROBIOLOGY - [facility] AL ORDERABLES Final Result [facility] [address] [place] [address], * ECG-Annotated (09/13/2024) us Provider Onbase ECG ORDERABLES Final Result * (ABNORMAL) CBC auto differential (09/12/2024 7:05 PM EDT) WBC 6.0 4.8 - 10.8 K/mcL LAB HEMETOLOGY METHOD 09/12/2024 7:44 PM [facility] RBC 4.70 4.50 - 5.50 M/mcL LAB HEMETOLOGY METHOD 09/12/2024 7:44 PM [facility] Hemoglobin 13.1(L) 13.5 - 17.5 g/dL LAB HEMETOLOGY METHOD 09/12/2024 7:44 PM [facility] Hematocrit 39.6(L) 42.0 - 54.0 % LAB HEMETOLOGY METHOD 09/12/2024 7:44 PM [facility] MCV 85.0 79.0 - 98.0 FL LAB HEMETOLOGY METHOD 09/12/2024 7:44 PM [facility] MCH 28.1 27.0 - 32.0 pcg LAB HEMETOLOGY METHOD 09/12/2024 7:44 PM [facility] MCHC 33.1 32.0 - 37.0 g/dL LAB HEMETOLOGY METHOD 09/12/2024 7:44 PM [facility] RDW 13.9 11.0 - 15.0 % LAB HEMETOLOGY METHOD 09/12/2024 7:44 PM [facility] Platelets 237 130 - 400 K/mcL LAB HEMETOLOGY METHOD 09/12/2024 7:44 PM [facility] MPV 10.2 7.0 - 11.0 FL LAB HEMETOLOGY METHOD 09/12/2024 7:44 PM [facility] NRBC 0.0 <1.0 % LAB HEMETOLOGY METHOD 09/12/2024 7:44 PM [facility] NRBC Absolute 0.00 <0.10 K/mcL LAB HEMETOLOGY METHOD 09/12/2024 7:44 PM [facility] Neutrophils Relative 52.6 % LAB HEMETOLOGY METHOD 09/12/2024 7:44 PM [facility] Lymphocytes Relative 26.1 % LAB HEMETOLOGY METHOD 09/12/2024 7:44 PM [facility] Monocytes Relative 14.9 % LAB HEMETOLOGY METHOD 09/12/2024 7:44 PM [facility] Eosinophils Relative 4.4 % LAB HEMETOLOGY METHOD 09/12/2024 7:44 PM [facility] Basophils Relative 1.2 % LAB HEMETOLOGY METHOD 09/12/2024 7:44 PM [facility] Immature Granulocytes Relative 0.8 % LAB HEMETOLOGY METHOD 09/12/2024 7:44 PM [facility] Neutrophils Absolute 3.14 1.50 - 7.00 K/mcL LAB HEMETOLOGY METHOD 09/12/2024 7:44 PM [facility] Lymphocytes Absolute 1.56 1.00 - 5.00 K/mcL LAB HEMETOLOGY METHOD 09/12/2024 7:44 PM [facility] Monocytes Absolute 0.89 0.20 - 1.00 K/mcL LAB HEMETOLOGY METHOD 09/12/2024 7:44 PM [facility] Eosinophils Absolute 0.26 0.00 - 0.50 K/mcL LAB HEMETOLOGY METHOD 09/12/2024 7:44 PM [facility] Basophils Absolute 0.07 0.00 - 0.20 K/mcL LAB HEMETOLOGY METHOD 09/12/2024 7:44 PM [facility] Immature Granulocytes Absolute 0.05(H) 0.00 - 0.03 K/mcL LAB HEMETOLOGY METHOD 09/12/2024 7:44 PM [facility] Blood Venous blood specimen / Unknown Venipuncture / Unknown 09/12/2024 7:05 PM EDT 09/12/2024 7:34 PM EDT Paloma Perry MD LAB BLOOD ORDERABLES Fin al Result Performing Organization Address [facility]/ZIP Co de Phone Number [facility] [address] [place] [address], [place] [phone] * Magnesium (09/12/2024 7:05 PM EDT) [facility] Magnesium 1.9 1.9 - 2.6 mg/dL LAB CHEMISTRY METHOD 09/12/2024 8:05 PM EDT [facility] Blood Venous blood specimen / Unknown Venipuncture / Unknown 09/12/2024 7:05 PM EDT 09/12/2024 7:34 PM EDT Paloma Perry MD LAB BLOOD ORDERABLES Fin al Result Performing Organization Address [facility]/ZIP Co de Phone Number [facility] [address] [place] [address], [place] [phone] * (ABNORMAL) Basic metabolic panel (09/12/2024 7:05 PM EDT) [facility] Sodium 132(L) 133 - 145 mmol/L LAB CHEMISTRY METHOD 09/12/2024 8:05 PM EDT [facility] Potassium 4.3 3.5 - 5.5 mmol/L LAB CHEMISTRY METHOD 09/12/2024 8:05 PM EDT [facility] Chloride 100 96 - 110 mmol/L LAB CHEMISTRY METHOD 09/12/2024 8:05 PM EDT [facility] CO2 25 21 - 32 mmol/L LAB CHEMISTRY METHOD 09/12/2024 8:05 PM EDT [facility] Anion Gap 7 3 - 11 LAB CHEMISTRY METHOD 09/12/2024 8:05 PM EDT [facility] Glucose 216(H) 70 - 100 mg/dL LAB CHEMISTRY METHOD 09/12/2024 8:05 PM EDT [facility] BUN 31(H) 5 - 25 mg/dL LAB CHEMISTRY METHOD 09/12/2024 8:05 PM EDT [facility] Creatinine 1.87(H) 0.70 - 1.30 mg/dL LAB CHEMISTRY METHOD 09/12/2024 8:05 PM EDT [facility] eGFR 39(L) >=60 mL/min/1. 73m2 LAB CHEMISTRY METHOD 09/12/2024 8:05 PM EDT [facility] Comment:Calculation based on the??Chronic Kidney Disease Epidemiology Collaboration (CKD-EPI) equation refit??without adjustment for race. BUN/Creatinine Ratio 16.6 LAB CHEMISTRY METHOD 09/12/2024 8:05 PM EDT [facility] Calcium 9.7 8.5 - 10.5 mg/dL LAB CHEMISTRY METHOD 09/12/2024 8:05 PM EDT [facility] Blood Venous blood specimen / Unknown Venipuncture / Unknown 09/12/2024 7:05 PM EDT 09/12/2024 7:34 PM EDT us Paloma Perry MD LAB BLOOD ORDERABLES Fin al Result [facility] [address] [place] [address], * ECG 12 lead (09/12/2024 7:03 PM EDT) Ventricular Rate ECG 111 BPM GEMUSE Atrial Rate 111 BPM GEMUSE P-R Interval 194 ms GEMUSE QRS Duration 118 ms GEMUSE Q-T Interval 342 ms GEMUSE QTc 465 ms GEMUSE P Wave [place] 61 degrees GEMUSE R [place] -71 degrees GEMUSE T [place] 36 degrees GEMUSE ECG Interpretation Sinus tachycardia Right bundle branch block Left anterior fascicular block Bifascicular block Abnormal ECG No previous ECGs available Confirmed by Arnav GARCIA, HAYDEN ([id number]) on 09/12/2024 7:11:46 PM GEMUSE 09/12/2024 7:03 PM EDT 09/12/2024 7:11 PM EDT us Paloma Perry MD ECG ORDERABLES Final Re sult GEMUSE from Last 3 Months Insurance [facility] [employer] Member Subscriber Plan / Payer (Ef fective 2024-Present) Name:Brandt Nelson Relation to Subscriber:Self Name:Brandt Nelson Payer ID:[id number] Group ID:Not on file Type:Not on file Address: [place] [address] [place] [address] Care Teams Construction Technician Relationship Specialty Start Date End Date [facility] [address] [phone] PCP - General 01/05/24
--- OUTSIDE RECORDS SUMMARY | 2024-09-16 15:10 | XMS_ITS | Encounter Summary ---
Author Organization [employer] Address [address] [place] [address] Care Team Providers Care Ladle Repairman Name Role Phone Tg Milner [facility] Primary Care Provider [phone] Encounter Details Date Type Department Care Team (Late st Contact Info) Description 04/17/[address] [facility] [address] [place] [address] Addis Hathaway Social History Tobacco Use Types [...] Description 10/19/2024 11:15 AM EDT Office Visit [facility] [address] [place] [address] Tg Milner FNP [address] [place] [address] documented as of this encounter Visit Diagnoses Not on filedocumented in this encounter Additional Health Concerns Assessment Noted Time PHQ-9 Depression Total Score: 0 11/25/19 23 3:32 PM EDT documented as of this encounter Care Teams Ladle Repairman Relationship Specialty Start Date End Date Tg Milner FNP [address] [place] [phone] PCP - General Family Medicine 04/28/22 documented as of this encounter
--- OUTSIDE RECORDS SUMMARY | 2024-09-16 15:10 | XMS_ITS | Encounter Summary ---
Author Organization [employer] [facility] Address [address] [place] [address] [address] [place] [address] Care Team Providers Care Cutter Operator Tile Name Role Phone [facility] Primary Care Provider [phone] Reason for Visit * Reason Comments Med Refill Encounter Details Date Type Department Care Team (Late Contact Info) Description 12/22/2022 Refill [facility]INE [address] [place], [place] [phone] [facility] [address] [place] [address] Primary hypertension Social History Tobacco Use Types [...] Department Care Team (Late Contact Info) Description 10/19/2024 11:15 AM EDT Office Visit [facility] MEDICINE [address] [place] [phone] Tg Milner FNP [address] [place] [address] documented as of this encounter Visit Diagnoses Diagnosis Primary hypertension Unspecified essential hypertension documented in this encounter Additional Health Concerns Assessment Noted Time PHQ-9 Depression Total Score: 0 11/25/19 23 3:32 PM EDT documented as of this encounter Care Teams Cutter Operator Tile Relationship Specialty Start Date End Date Tg Milner FNP [address] [place] [address] PCP - General Family Medicine 04/28/22 documented as of this encounter
--- OUTSIDE RECORDS SUMMARY | 2024-09-16 15:10 | XMS_ITS | Encounter Summary ---
Author Organization [employer] Address [address] [facility] [address] [place] [address] Care Team Providers Care Autocutter Name Role Phone Tg Milner [facility] Primary Care Provider [phone] Encounter Details Date Type Department Care Team (Latest Contact Info) Description 09/15/2024 Travel Social History Tobacco Use Types Packs/Day Years [...] Description 10/19/2024 11:15 AM EDT Office Visit [facility]ICINE [address] [place] [address] Tg Milner FNP [address] [place] [address] documented as of this encounter Visit Diagnoses Not on filedocumented in this encounter Additional Health Concerns Assessment Noted Time PHQ-9 Depression Total Score: 0 07/22/19 25 10:03 AM EST documented as of this encounter Care Teams Autocutter Relationship Specialty Start Date End Date Tg Milner FNP [address] [place] [address] PCP - General Family Medicine 04/28/22 documented as of this encounter
--- OUTSIDE RECORDS SUMMARY | 2024-09-16 15:10 | XMS_ITS | Encounter Summary ---
Author Organization [employer] Address [address] [facility] 7 [place] [address] Care Team Providers Care Cognos Developer Name Role Phone [place], [facility] Primary Care Provider [phone] Reason for Visit * Reason Comments Med Refill Encounter Details Date Type Department Care Team ([facility] st Contact Info) Description 08/31/2024 Refill [facility]INE [address] [place] [address] [facility] [address] [place] [address] Primary hypertension Social History Tobacco Use Types [...] Description 10/19/2024 11:15 AM EDT Office Visit [facility] [address] [place] [address] Tg Milner FNP [address] [place] [address] documented as of this encounter Visit Diagnoses Diagnosis Primary hypertension Unspecified essential hypertension documented in this encounter Additional Health Concerns Assessment Noted Time PHQ-9 Depression Total Score: 0 07/22/19 25 10:03 AM EST documented as of this encounter Care Teams Cognos Developer Relationship Specialty Start Date End Date Tg Milner FNP [address] [place] [address] PCP - General Family Medicine 04/28/22 documented as of this encounter
--- OUTSIDE RECORDS SUMMARY | 2024-09-16 15:10 | XMS_ITS | Encounter Summary ---
Author Organization [employer] [facility] Address [address] [place] [address] Care Team Providers Care Representative Government Relations Name Role Phone [place], [facility] Primary Care Provider [phone] Encounter Details Date Type Department Care Team (Late Contact Info) Description 06/03/2022 Telephone [facility] MEDICINE [address] [place] [phone] [place] [facility] [address] [place] [address] Social History Tobacco Use Types Packs/Day Years [...] Description 10/19/2024 11:15 AM EDT Office Visit [facility] [address] [place] [phone] [place] [facility] [address] [place] [address] documented as of this encounter Visit Diagnoses Not on filedocumented in this encounter Care Teams Representative Government Relations Relationship Specialty Start Date End Date Tg Milner [facility] [address] [place] [address] PCP - General Family Medicine 04/28/22 documented as of this encounter
--- OUTSIDE RECORDS SUMMARY | 2024-09-16 15:10 | XMS_ITS | Encounter Summary ---
Author Organization [employer] [facility] Address [address] [place] [address] Care Team Providers Care Well Testing Operator Name Role Phone Tg Milner [facility] Primary Care Provider [phone] Encounter Details Date Type Department Care Team (Late st Contact Info) Description 07/10/2022 Orders Only [facility] MEDICINE [address] [place] [phone] Chante Mackey LPN Social History Tobacco Use [...] Description 10/19/2024 11:15 AM EDT Office Visit [facility] MEDICINE [address] [place] [phone] Tg Milner [facility] [address] [place] [address] documented as of this encounter Visit Diagnoses Not on filedocumented in this encounter Care Teams Well Testing Operator Relationship Specialty Start Date End Date Tg Milner FNP [address] [place] [address] PCP - General Family Medicine 04/28/22 documented as of this encounter
--- OUTSIDE RECORDS SUMMARY | 2024-09-16 15:10 | XMS_ITS | Encounter Summary ---
Author Organization [employer] Address [address] [facility] 7t [place] [address] Care Team Providers Care Compliance Spec Name Role Phone Tg Milner [facility] Primary Care Provider [phone] Reason for Visit * Reason Onset Date Comments CGM Appt 09/15/2024 Encounter Details Date Type Department Care Team ([facility] st Contact Info) Description 09/15/[address] [facility] MEDICINE [address] [place] [address] Heidi Silva RN [address] [place] [address] CGM Appt Social History Tobacco Use Types Packs/Day Years [...] encounter Miscellaneous Notes * Telephone Encounter - Heidi Silva RN - 09/15/2024 11:22 AM EDT Pt. Here today for initial 1 month CGM f/up. Time in range for the last month is 60%, high 37%, andvery high 3%. Average glucose 174. Zero episodes of hypoglycemia. Pt. Currently uses 8u Lantus, Trulicity 4.5 weekly, metformin 1000 bid, jardiance 25mg daily. Pt. Inquiring if Lantus could be increased more prior to next PCP appt. 10/19/24 Will call him with any change to plan of care, thank you! documented in this encounter Plan of Treatment Upcoming Encounters Date Type Department Care Team (Late st Contact Info) Description 10/19/2024 11:15 AM EDT Office Visit [facility] MEDICINE [address] [place] [address] Tg Milner FNP [address] [place] [address] documented as of this encounter Visit Diagnoses Not on filedocumented in this encounter Additional Health Concerns Assessment Noted Time PHQ-9 Depression Total Score: 0 07/22/19 10:03 AM EST documented as of this encounter Care Teams Compliance Spec Relationship Specialty Start Date End Date Annia Tg, KRISTY [address] [place] [address] PCP - General Family Medicine 04/28/22 documented as of this encounter
--- OUTSIDE RECORDS SUMMARY | 2024-09-16 15:10 | XMS_ITS | Encounter Summary ---
Author Organization [facility] Address [address] [place] [address] Care Team Providers Care Case Manager Specialist Name Role Phone [facility] Primary Care Provider [phone] Reason for Visit * Reason Comments Med Refill Encounter Details Date Type Department Care Team (Late st Contact Info) Description 12/25/2022 Refill [facility] MEDICINE [address] [place] [address] [facility] [address] [place], [place] [phone] Type 2 diabetes mellitus without complication, without long-term current use of insulin ([facility]) Social History Tobacco Use Types Packs/Day Years [...] Description 10/19/2024 11:15 AM EDT Office Visit [facility] MEDICINE [address] [place] [address] [facility] [address] [place], [place] [phone] documented as of this encounter Visit Diagnoses Diagnosis Type 2 diabetes mellitus without complication, without long-term current use of insulin ([facility]) documented in this encounter Additional Health Concerns Assessment Noted Time PHQ-9 Depression Total Score: 0 11/25/19 23 3:32 PM EDT documented as of this encounter Care Teams Case Manager Specialist Relationship Specialty Start Date End Date Tg Milner FNP [address] [place] [address] PCP - General Family Medicine 04/28/22 documented as of this encounter
== END 2024-09-16 15:46 | disposition home or self-care (01) ==
LOC: HO.HGI 15:05
PROVIDERS: Visit Provider Nurse Practitioner Family
DX: Z01.818 Encounter for other preprocedural examination (principal); Z12.11 Encounter for screening for malignant neoplasm of colon
CPT/HCPCS: 99024

== ENCOUNTER → 2024-09-16 15:04 | Outpatient (BNVA) | payer OTHER, SELFPAY | PROVIDERS: Visit Provider Nurse Practitioner Family | DX: Z12.11 Encounter for screening for malignant neoplasm of colon (principal); N39.0 Urinary tract infection, site not specified; N31.9 Neuromuscular dysfunction of bladder, unspecified; Z97.8 Presence of other specified devices | CPT/HCPCS: 99212 ==

== ENCOUNTER → 2024-09-30 09:09 | Outpatient (BNVA) | payer OTHER, SELFPAY | PROVIDERS: Visit Provider Urology | DX: R33.8 Other retention of urine (principal) | CPT/HCPCS: 51700; 51702 ==

== ENCOUNTER 2024-10-04 14:42 | Outpatient (REF) | payer OTHER, SELFPAY ==
--- OUTSIDE RECORDS SUMMARY | 2024-10-04 15:54 | XMS_ITS | Encounter Summary ---
Author Organization [employer] Address [address] [facility] 7t [place] [address] Care Team Providers Care Compactor Driver Name Role Phone [place] [facility] Primary Care Provider [phone] Reason for Visit * Reason Comments Med Refill Encounter Details Date Type Department Care Team ([facility] st Contact Info) Description 07/01/2023 Refill [facility] MEDICINE [address] [place] [address] [facility] [address] [place] [address] Primary osteoarthritis of right knee Social History [...] the past 12 months, has t he [employer], gas, oil or water company threatened to [...] Description 10/19/2024 11:15 AM EDT Office Visit [facility] MEDICINE [address] [place] [address] Tg Milner FNP [address] [place] [address] documented as of this encounter Visit Diagnoses Diagnosis Primary osteoarthritis of right knee documented in this encounter Additional Health Concerns Assessment Noted Time PHQ-9 Depression Total Score: 0 11/25/19 23 3:32 PM EDT documented as of this encounter Care Teams Compactor Driver Relationship Specialty Start Date End Date Tg Milner FNP [address] [place] [address] PCP - General Family Medicine 04/28/22 documented as of this encounter
--- OUTSIDE RECORDS SUMMARY | 2024-10-04 15:54 | XMS_ITS | Clinical Summary ---
Author Organization [facility] Address [address] [place] [address] Phone Care Team Providers Care Servicenow Administrator Name Role Phone [facility] Primary Care Provider [phone] Allergies No known active allergies Medications acetaminophen (TYLENOL) 325 mg tablet Take 2 Tablets by mouth every 6 hours as needed for Pain (mild to moderate pain) for up to 10 days. 3 Active metformin HCl (METFORMIN ORAL) Take by [...] a day for 10 days. 40 each 5 09/24/19 25 lactulose (CHRONULAC) solution Take 30 mL (20 g total) by mouth 3 (three) times a day for 3 days. 270 mL 5 09/17/19 25 dicyclomine (BENTYL) 20 mg tablet Take 1 tablet (20 mg total) by mouth 2 (two) times a day for 10 days. 20 tablet 5 09/24/19 25 Encounters Date Type Department Care Team Description 09/13/2024 1:25 AM EDT - 09/13/2024 6:03 AM EDT Emergency [facility] Emergency [address] [place] [address] Paloma Perry MD Hemorrhagic cystitis (Primary Dx); [...] Risk Assessment 10/22/2023 COVID-19 Vaccine (1 - 4-2 5 season) 2024 Diabetes: Annual Urine Albumin-Creatinine [...] microscopic and culture (09/13/2024 2:32 AM EDT) [facility] Specific [place] Urine 1.020 1.003 - 1.030 LAB URINALYSIS - AUTOMATED METHOD 09/13/2024 3:25 AM [facility] pH, Urine 8.0 5.0 - 8.0 pH LAB URINALYSIS - AUTOMATED METHOD 09/13/2024 3:25 AM [facility] Leukocytes, Urine Moderate(A) Negative LAB URINALYSIS - AUTOMATED METHOD 09/13/2024 3:25 AM [facility] Nitrite, Urine Positive(A) Negative LAB URINALYSIS - AUTOMATED METHOD 09/13/2024 3:25 AM [facility] Protein, Urine >=300(A) <=Trace mg/dL LAB URINALYSIS - AUTOMATED METHOD 09/13/2024 3:25 AM [facility] Glucose, Urine >=1000(A) Negative mg/dL LAB URINALYSIS - AUTOMATED METHOD 09/13/2024 3:25 AM EDT [facility] Ketones, Urine Negative Negative mg/dL LAB URINALYSIS - AUTOMATED METHOD 09/13/2024 3:25 AM [facility] Urobilinogen , Urine 0.2 0.2 - 1.0 mg/dL LAB URINALYSIS - AUTOMATED METHOD 09/13/2024 3:25 AM [facility] Bilirubin, Urine Small(A) Negative LAB URINALYSIS - AUTOMATED METHOD 09/13/2024 3:25 AM [facility] Blood, Urine Large(A) Negative LAB URINALYSIS - AUTOMATED METHOD 09/13/2024 3:25 AM [facility] RBC, Urine 100(H) 0 - 4 /HPF 09/13/2024 3:25 AM [facility] WBC, Urine 100(H) 0 - 4 /HPF 09/13/2024 3:25 AM [facility] Squamous Epithelial, Urine 4 0 - 60 /LPF 09/13/2024 3:25 AM [facility] Bacteria, Urine Moderate(A) Negative /HPF 09/13/2024 3:25 AM [facility] Hyaline Casts, Urine 4(H) 0 - 3 /LPF 09/13/2024 3:25 AM [facility] Urine Indwelling urinary catheter / Unknown Non-blood Collection / Unknown 09/13/2024 2:32 AM EDT 09/13/2024 3:03 AM EDT us Paloma Perry MD LAB URINE ORDERABLES Fin al Result [facility] [address] [place] [address], * [place]yon urine culture tube (09/13/2024 2:32 AM EDT) Extra Tube Hold for add-ons. 09/13/2024 5:01 AM EDT [facility] Comment:Auto resulted. Urine Indwelling urinary catheter / Unknown Non-blood Collection / Unknown 09/13/2024 2:32 AM EDT 09/13/2024 3:03 AM EDT us Paloma Perry MD LAB URINE ORDERABLES Fin al Result [facility] [address] [place] [address], * (ABNORMAL) Culture urine (09/13/2024 2:32 AM EDT) Pathologist [facility] Culture, Urine >100,000 CFU/mL Proteus mirabilis(A) JEZ 09/16/2024 8:51 AM EDT [facility] Comment: Edited result: Previously reported as Proteus species on 09/14/2024 at 1010 EDT. Culture, Urine 10,000-49,000 CFU/mL Klebsiella pneumoniae ssp pneumoniae(A) JEZ 09/16/2024 8:51 AM EDT [facility] Comment: The organism value for [...] MICROBIOLOGY - GENER AL ORDERABLES Final Result [facility] [address] [place] [address], [place] [phone] * Respiratory virus panel molecular study (09/13/2024 1:36 AM EDT) [facility] Adenovirus Detection by PCR Not Detected Not Detected LAB MICROBIOLOGY METHOD 09/13/2024 2:48 AM EDT [facility] Influenza A PCR Not Detected Not Detected LAB MICROBIOLOGY METHOD 09/13/2024 2:48 AM EDT [facility] Influenza B PCR Not Detected Not Detected LAB MICROBIOLOGY METHOD 09/13/2024 2:48 AM EDT [facility] Coronavirus 229E Not Detected Not Detected LAB MICROBIOLOGY METHOD 09/13/2024 2:48 AM EDT [facility] Coronavirus HKU1 Not Detected Not Detected LAB MICROBIOLOGY METHOD 09/13/2024 2:48 AM EDT [facility] Coronavirus OC43 Not Detected Not Detected LAB MICROBIOLOGY METHOD 09/13/2024 2:48 AM EDT [facility] Coronavirus NL63 Not Detected Not Detected LAB MICROBIOLOGY METHOD 09/13/2024 2:48 AM EDT [facility] Parainfluenza Virus 1 Not Detected Not Detected LAB MICROBIOLOGY METHOD 09/13/2024 2:48 AM EDT [facility] Parainfluenza Virus 2 Not Detected Not Detected LAB MICROBIOLOGY METHOD 09/13/2024 2:48 AM EDT [facility] Parainfluenza Virus 3 Not Detected Not Detected LAB MICROBIOLOGY METHOD 09/13/2024 2:48 AM EDT [facility] Parainfluenza Virus 4 Not Detected Not Detected LAB MICROBIOLOGY METHOD 09/13/2024 2:48 AM EDT [facility] RSV PCR Not Detected Not Detected LAB MICROBIOLOGY METHOD 09/13/2024 2:48 AM EDT [facility] Human Metapneumovirus A and B Not Detected Not Detected LAB MICROBIOLOGY METHOD 09/13/2024 2:48 AM EDT [facility] Rhinovirus/Entero virus Not Detected Not Detected LAB MICROBIOLOGY METHOD 09/13/2024 2:48 AM EDT [facility] Bordetella pertussis Not Detected Not Detected LAB MICROBIOLOGY METHOD 09/13/2024 2:48 AM EDT [facility] Bordetella parapertussis Not Detected Not Detected LAB MICROBIOLOGY METHOD 09/13/2024 2:48 AM EDT [facility] Mycoplasma pneumo by PCR Not Detected Not Detected LAB MICROBIOLOGY METHOD 09/13/2024 2:48 AM EDT [facility] Chlamydia pneumoniae Not Detected Not Detected LAB MICROBIOLOGY METHOD 09/13/2024 2:48 AM EDT [facility] SARS COV-2 Not Detected Not Detected LAB MICROBIOLOGY METHOD 09/13/2024 2:48 AM EDT [facility] Swab Both anterior nares / Unknown Non-blood Collection / Unknown 09/13/2024 1:36 AM EDT 09/13/2024 1:50 AM EDT Narrative [facility] - 09/13/2024 2:48 AM EDT Testing was performed using the [employer] Respiratory Pathogen PCR Assay. All results must [...] that are below the limit of detection. Palmoa Perry MD LAB MICROBIOLOGY - [place] AL ORDERABLES Final Result [facility] [address] [place] [address], * ECG-Annotated (09/13/2024) us Provider Onbase ECG ORDERABLES Final Result * (ABNORMAL) CBC auto differential (09/12/2024 7:05 PM EDT) [facility] WBC 6.0 4.8 - 10.8 K/mcL LAB HEMETOLOGY METHOD 09/12/2024 7:44 PM [facility] RBC 4.70 4.50 - 5.50 M/mcL LAB HEMETOLOGY METHOD 09/12/2024 7:44 PM [facility] Hemoglobin 13.1(L) 13.5 - 17.5 g/dL LAB HEMETOLOGY METHOD 09/12/2024 7:44 PM [facility] Hematocrit 39.6(L) 42.0 - 54.0 % LAB HEMETOLOGY METHOD 09/12/2024 7:44 PM [facility] MCV 85.0 79.0 - 98.0 FL LAB HEMETOLOGY METHOD 09/12/2024 7:44 PM [facility] MCH 28.1 27.0 - 32.0 pcg LAB HEMETOLOGY METHOD 09/12/2024 7:44 PM [facility] MCHC 33.1 32.0 - 37.0 g/dL LAB HEMETOLOGY METHOD 09/12/2024 7:44 PM [facility] RDW 13.9 11.0 - 15.0 % LAB HEMETOLOGY METHOD 09/12/2024 7:44 PM [facility] Platelets 237 130 - 400 K/mcL LAB HEMETOLOGY METHOD 09/12/2024 7:44 PM [facility] MPV 10.2 7.0 - 11.0 FL LAB HEMETOLOGY METHOD 09/12/2024 7:44 PM [facility] NRBC 0.0 <1.0 % LAB HEMETOLOGY METHOD 09/12/2024 7:44 PM [facility] NRBC Absolute 0.00 <0.10 K/mcL LAB HEMETOLOGY METHOD 09/12/2024 7:44 PM [facility] Neutrophils Relative 52.6 % LAB HEMETOLOGY METHOD 09/12[facility]2024 7:[facility] Lymphocytes Relative 26.1 % LAB HEMETOLOGY METHOD 09/12/2024 7:44 PM [facility] Monocytes Relative 14.9 % LAB HEMETOLOGY METHOD 09/12/2024 7:44 PM [facility] Eosinophils Relative 4.4 % LAB HEMETOLOGY METHOD 09/12/2024 7:44 PM [facility] Basophils Relative 1.2 % LAB HEMETOLOGY METHOD 09/12/2024 7:44 PM [facility] Immature Granulocytes Relative 0.8 % LAB HEMETOLOGY METHOD 09/12/2024 7:44 PM [facility] Neutrophils Absolute 3.14 1.50 - 7.00 K/mcL LAB HEMETOLOGY METHOD 09/12/2024 7:44 PM [facility] Lymphocytes Absolute 1.56 1.00 - 5.00 K/mcL LAB HEMETOLOGY METHOD 09/12/2024 7:44 PM [facility] Monocytes Absolute 0.89 0.20 - 1.00 K/mcL LAB HEMETOLOGY METHOD 09/12/2024 7:44 PM [facility] Eosinophils Absolute 0.26 0.00 - 0.50 K/mcL LAB HEMETOLOGY METHOD 09/12/2024 7:44 PM [facility] Basophils Absolute 0.07 0.00 - 0.20 K/mcL LAB HEMETOLOGY METHOD 09/12/2024 7:44 PM [facility] Immature Granulocytes Absolute 0.05(H) 0.00 - 0.03 K/mcL LAB HEMETOLOGY METHOD 09/12/2024 7:44 PM [facility] Blood Venous blood specimen / Unknown Venipuncture / Unknown 09/12/2024 7:05 PM EDT 09/12/2024 7:34 PM EDT Paloma Perry MD LAB BLOOD ORDERABLES Fin al Result Performing Organization Address [facility]/ZIP Co de Phone Number [facility] [address] [place] [address], [place] [phone] * Magnesium (09/12/2024 7:05 PM EDT) Pathologist [facility] Magnesium 1.9 1.9 - 2.6 mg/dL LAB CHEMISTRY METHOD 09/12/2024 8:05 PM EDT [facility] Blood Venous blood specimen / Unknown Venipuncture / Unknown 09/12/2024 7:05 PM EDT 09/12/2024 7:34 PM EDT Paloma Perry MD LAB BLOOD ORDERABLES Fin al Result Performing Organization Address [facility]/ZIP Co de Phone Number [facility] [address] [place] [address], [place] [phone] * (ABNORMAL) Basic metabolic panel (09/12/2024 7:05 PM EDT) [facility] Sodium 132(L) 133 - 145 mmol/L LAB CHEMISTRY METHOD 09/12/2024 8:05 PM EDT [facility] Potassium 4.3 3.5 - 5.5 mmol/L LAB CHEMISTRY METHOD 09/12/2024 8:05 PM EDT [facility] Chloride 100 96 - 110 mmol/L LAB CHEMISTRY METHOD 09/12/2024 8:05 PM EDT [facility] CO2 25 21 - 32 mmol/L LAB CHEMISTRY METHOD 09/12/2024 8:05 PM EDT [facility] Anion Gap 7 3 - 11 LAB CHEMISTRY METHOD 09/12/2024 8:05 PM EDT [facility] Glucose 216(H) 70 - 100 mg/dL LAB CHEMISTRY METHOD 09/12/2024 8:05 PM EDT [facility] BUN 31(H) 5 - 25 mg/dL LAB CHEMISTRY METHOD 09/12/2024 8:05 PM T [facility] Creatinine 1.87(H) 0.70 - 1.30 mg/dL LAB CHEMISTRY METHOD 09/12/2024 8:05 PM EDT [facility] eGFR 39(L) >=60 mL/min/1. 73m2 LAB CHEMISTRY METHOD 09/12/2024 8:05 PM EDT [facility] Comment:Calculation based on the??Chronic Kidney Disease Epidemiology Collaboration (CKD-EPI) equation refit??without adjustment for race. BUN/Creatinine Ratio 16.6 LAB CHEMISTRY METHOD 09/12/2024 8:05 PM EDT [facility] Calcium 9.7 8.5 - 10.5 mg/dL LAB CHEMISTRY METHOD 09/12/2024 8:05 PM EDT [facility] Blood Venous blood specimen / Unknown Venipuncture / Unknown 09/12/2024 7:05 PM EDT 09/12/2024 7:34 PM EDT us Paloma Perry MD LAB BLOOD ORDERABLES Fin al Result [facility] [address] [place] [address], * ECG 12 lead (09/12/2024 7:03 PM EDT) Ventricular Rate ECG 111 BPM GEMUSE Atrial Rate 111 BPM GEMUSE P-R Interval 194 ms GEMUSE QRS Duration 118 ms GEMUSE Q-T Interval 342 ms GEMUSE QTc 465 ms GEMUSE P Wave Armstrong 61 degrees GEMUSE R Armstrong -71 degrees GEMUSE T Armstrong 36 degrees GEMUSE ECG Interpretation Sinus tachycardia Right bundle branch block Left anterior fascicular block Bifascicular block Abnormal ECG No previous ECGs available Confirmed by Arnav GARCIA YUFENG ([id number]) on 09/12/2024 7:11:46 PM GEMUSE 09/12/2024 7:03 PM EDT 09/12/2024 7:11 PM EDT us Paloma Perry MD ECG ORDERABLES Final Re sult GEMUSE from Last 3 Months Insurance [facility] [employer] Member Subscriber Plan / Payer (Ef fective 2024-Present) Name:Brandt Nelson Relation to Subscriber:Self Name:Brandt Nelson Payer ID:[id number] Group ID:Not on file Type:Not on file Address: [place] [facility] [place] [id number] Care Teams Servicenow Administrator Relationship Specialty Start Date End Date [facility] [address] [phone] PCP - General 01/05/24
--- OUTSIDE RECORDS SUMMARY | 2024-10-04 15:54 | XMS_ITS | Encounter Summary ---
Author Organization [facility] Address [address] [place] [address] Care Team Providers Care Marketing Team Lead Name Role Phone [place] [facility] Primary Care Provider [phone] Reason for Visit * Reason Comments Med Refill Encounter Details Date Type Department Care Team (Late st Contact Info) Description 12/25/2022 Refill [facility] MEDICINE [address] [place] [address] [facility] [address] [place], [place] [phone] Type 2 diabetes mellitus without complication, without long-term current use of insulin ([facility]) Social History Tobacco Use Types Packs/Day Years [...] Description 10/19/2024 11:15 AM EDT Office Visit [facility] MED[facility]INE [address] [place] [address] [facility] [address] [place], [place] [phone] documented as of this encounter Visit Diagnoses Diagnosis Type 2 diabetes mellitus without complication, without long-term current use of insulin ([facility]) documented in this encounter Additional Health Concerns Assessment Noted Time PHQ-9 Depression Total Score: 0 11/25/19 23 3:32 PM EDT documented as of this encounter Care Teams Marketing Team Lead Relationship Specialty Start Date End Date Tg Milner FNP [address] [place] [address] PCP - General Family Medicine 04/28/22 documented as of this encounter
--- OUTSIDE RECORDS SUMMARY | 2024-10-04 15:54 | XMS_ITS | Encounter Summary ---
Author Organization [employer] Address [address] [facility] 7t [place] [address] Care Team Providers Care Rivet Heater Gas Name Role Phone Annia, [facility] Primary Care Provider [phone] Reason for Visit * Reason Comments Med Refill Encounter Details Date Type Department Care Team ([facility] st Contact Info) Description 08/31/2024 Refill [facility] MEDICINE [address] [place] [address] [facility] 230 [place] [address] Primary hypertension Social History Tobacco Use Types [...] Description 10/19/2024 11:15 AM EDT Office Visit [facility] MEDICINE [address] [place] [address] Tg Milner FNP [address] [place] [address] documented as of this encounter Visit Diagnoses Diagnosis Primary hypertension Unspecified essential hypertension documented in this encounter Additional Health Concerns Assessment Noted Time PHQ-9 Depression Total Score: 0 07/22/19 25 10:03 AM EST documented as of this encounter Care Teams [employer]et [employer] Relationship Specialty Start Date End Date Tg Milner FNP [address] [place] [address] PCP - General Family Medicine 04/28/22 documented as of this encounter
--- OUTSIDE RECORDS SUMMARY | 2024-10-04 15:54 | XMS_ITS | Encounter Summary ---
Author Organization [facility] Address [address] [place] [address] [place], [place] [address] Care Team Providers Care Billet Heater Name Role Phone [facility] Primary Care Provider [phone] Reason for Visit * Reason Comments Med Refill Encounter Details Date Type Department Care Team (Late Contact Info) Description 12/22/2022 Refill [facility]INE [address] [place] [address] [facility] [address] [place] [address] Primary hypertension Social History Tobacco Use Types [...] Description 10/19/2024 11:15 AM EDT Office Visit [facility]INE [address] [place] [address] Tg Milner FNP [address] [place] [address] documented as of this encounter Visit Diagnoses Diagnosis Primary hypertension Unspecified essential hypertension documented in this encounter Additional Health Concerns Assessment Noted Time PHQ-9 Depression Total Score: 0 11/25/19 23 3:32 PM EDT documented as of this encounter Care Teams Billet Heater Relationship Specialty Start Date End Date Tg Milner FNP [address] [place] [address] PCP - General Family Medicine 04/28/22 documented as of this encounter
--- OUTSIDE RECORDS SUMMARY | 2024-10-04 15:54 | XMS_ITS | Encounter Summary ---
Author Organization [employer] Address [address] [facility] [address] [place] [address] Care Team Providers Care Nightman Name Role Phone Tg Milner [facility] Primary Care Provider [phone] Encounter Details Date Type Department Care Team (Late st Contact Info) Description 04/17/2023 Abstract [facility] MEDICINE [address] [place] [address] [employer] Social History Tobacco Use Types [...] Description 10/19/2024 11:15 AM EDT Office Visit [facility] MED[facility]INE [address] [place] [address] Tg Milner FNP [address] [place] [address] documented as of this encounter Visit Diagnoses Not on filedocumented in this encounter Additional Health Concerns Assessment Noted Time PHQ-9 Depression Total Score: 0 11/25/19 23 3:32 PM EDT documented as of this encounter Care Teams Nightman Relationship Specialty Start Date End Date Tg Milner FNP [address] [place] [address] PCP - General Family Medicine 04/28/22 documented as of this encounter
--- OUTSIDE RECORDS SUMMARY | 2024-10-04 15:55 | XMS_ITS | Encounter Summary ---
Author Organization [employer] [facility] Address [address] [place] [address] [place] [address] Care Team Providers Care Immigration Case Manager Name Role Phone Annia, [facility] Primary Care Provider [phone] Encounter Details Date Type Department Care Team (Late st Contact Info) Description 06/03/2022 Telephone [facility] [address] [place] [phone] [facility] [address] [place] [address] Social History Tobacco Use Types Packs/Day Years [...] Description 10/19/2024 11:15 AM EDT Office Visit [facility] [address] [place] [address] [facility] [address] [place] [address] documented as of this encounter Visit Diagnoses Not on filedocumented in this encounter Care Teams Immigration Case Manager Relationship Specialty Start Date End Date Tg Milner [facility] [address] [place] [address] PCP - General Family Medicine 04/28/22 documented as of this encounter
--- OUTSIDE RECORDS SUMMARY | 2024-10-04 15:55 | XMS_ITS | Encounter Summary ---
Author Organization [employer] Address [address] [place] [address] Care Team Providers Care Distresser Name Role Phone Tg Milner COMMUNITY ENGAGEMENT SPECIALIST Primary Care Provider [phone] Reason for Visit * Reason Comments Med Refill Encounter Details Date Type Department Care Team ([facility] st Contact Info) Description 10/04/2024 Refill [facility] [address] [place] [address] Melisa Jacob MD [address] [place] [address] Pain in right lumbar region of back; Right flank pain Social History Tobacco Use Types Packs/Day Years [...] Description 10/19/2024 11:15 AM EDT Office Visit [facility] [address] [place] [address] Tg Milner FNP [address] [place] [address] documented as of this encounter Visit Diagnoses Diagnosis Pain in right lumbar region of back Right flank pain Abdominal pain, unspecified site documented in this encounter Additional Health Concerns Assessment Noted Time PHQ-9 Depression Total Score: 0 07/22/19 25 10:03 AM EST documented as of this encounter Care Teams Distresser Relationship Specialty Start Date End Date Tg Milner FNP [address] [place] [address] PCP - General Family Medicine 04/28/22 documented as of this encounter
--- OUTSIDE RECORDS SUMMARY | 2024-10-04 15:55 | XMS_ITS | Encounter Summary ---
Author Organization [employer] Address [address] [place] [address] [address] [address] Care Team Providers Care Ambulette Driver Name Role Phone Tg Milner [facility] Primary Care Provider [phone] Reason for Visit * Reason Onset Date Comments Medication Question 05/06/2022 new script 05/06/2022 Encounter Details Date Type Department Care Team ([facility] st Contact Info) Description 05/06/2022 Telephone [facility] [address] [place] [address] [place] [facility] [address] [place] [address] Medication Question; new script Social History Tobacco [...] Trulicity .75, 1.5 or 3mg. PCP ESTELLA [place] * Telephone Encounter - Nany Gann - 05/06/2022 2:08 PM EST Tc from pt requesting active medications. Pt will be traveling to [place] as of May 19nd unsure on the exact date that will be returning. Stated will be returning after the new years but has yet to establish a date. PCP ESTELLA [place] documented in this encounter Plan of Treatment Upcoming Encounters Date Type Department Care Team (Late st Contact Info) Description 10/19/2024 11:15 AM EDT Office Visit [facility] [address] [place] [address] Tg Milner FNP [address] [place] [address] documented as of this encounter Visit Diagnoses Diagnosis Type 2 diabetes mellitus without complication, without long-term current use of insulin ([facility]) documented in this encounter Care Teams Ambulette Driver Relationship Specialty Start Date End Date Tg Milner FNP [address] [place] [address] PCP - General Family Medicine 04/28/22 documented as of this encounter
--- OUTSIDE RECORDS SUMMARY | 2024-10-04 15:55 | XMS_ITS | Encounter Summary ---
Author Organization [employer] Address [address] [facility] [address] [place] [address] Care Team Providers Care Public Health Clinical Nurse Specialist Name Role Phone [facility] Primary Care Provider [phone] Reason for Visit * Reason Onset Date Comments Med Refill 10/03/2024 Encounter Details Date Type Department Care Team ([facility] st Contact Info) Description 10/03/2024 Refill [facility] [address] [place], [place] [phone] [facility] [address] [place] [address] Social History Tobacco Use Types Packs/Day Years [...] encounter Miscellaneous Notes * Telephone Encounter - Chante Mackey LPN - 10/03/2024 1:35 PM EDT Last seen 4.2.25 documented in this encounter Plan of Treatment Upcoming Encounters Date Type Department Care Team (Late st Contact Info) Description 10/19/2024 11:15 AM EDT Office Visit [facility] [address] [place] [address] Tg Milner FNP [address] [place] [address] documented as of this encounter Visit Diagnoses Not on filedocumented in this encounter Additional Health Concerns Assessment Noted Time PHQ-9 Depression Total Score: 0 07/22/19 25 10:03 AM EST documented as of this encounter Care Teams Public Health Clinical Nurse Specialist Relationship Specialty Start Date End Date Tg Milner FNP [address] [place] [address] PCP - General Family Medicine 04/28/22 documented as of this encounter
--- OUTSIDE RECORDS SUMMARY | 2024-10-04 15:55 | XMS_ITS | Encounter Summary ---
Author Organization [facility] Address [address] [place] [address] Care Team Providers Care Airbrush Painter Name Role Phone Tg Milner [facility] Primary Care Provider [phone] Encounter Details Date Type Department Care Team (Late st Contact Info) Description 07/10/2022 Orders Only [facility] [address] [place] [phone] Chante Mackey LPN Social History Tobacco Use [...] Office Visit [facility] [address] [place] [address] Tg Milner [facility] [address] [place] [address] documented as of this encounter Visit Diagnoses Not on filedocumented in this encounter Care Teams Airbrush Painter Relationship Specialty Start Date End Date Tg Milner FNP [address] [place] [address] PCP - General Family Medicine 04/28/22 documented as of this encounter
--- OUTSIDE RECORDS SUMMARY | 2024-10-04 15:55 | XMS_ITS | Encounter Summary ---
Author Organization [employer] [facility] Address [address] [place] [address] Care Team Providers Care Third Officer Name Role Phone Tg Milner [facility] Primary Care Provider [phone] Reason for Visit * Reason Comments Med Refill Encounter Details Date Type Department Care Team (Late st Contact Info) Description 06/18/2022 Refill [facility] [address] [place] [address] Tg Milner [facility] [address] [place] [address] Type 2 diabetes mellitus without complication, without [...] Description 10/19/2024 11:15 AM EDT Office Visit [facility] [address] [place] [address] Tg Milner FNP [address] [place] [address] documented as of this encounter Visit Diagnoses Diagnosis Type 2 diabetes mellitus without complication, without long-term current use of insulin (CMS/HCC) documented in this encounter Care Teams Third Officer Relationship Specialty Start Date End Date Tg Milner FNP [address] [place] [address] PCP - General Family Medicine 04/28/22 documented as of this encounter
--- OUTSIDE RECORDS SUMMARY | 2024-10-04 15:55 | XMS_ITS | Clinical Summary ---
Author Organization [employer] Address [address] [place] [address] 7[address] [place] [address] Care Team Providers Care Medical Record Librarian Name Role Phone Tg Milner [facility] Primary Care Provider [phone] Allergies No known active allergies Medications cyclobenzaprine [...] IN EACH EYE EVERY NIGHT 023 Active albuterol 108 (90 Base) MCG/ACT inhaler Inhale 2 puffs every 4 (four) hours if needed for wheezing. 18 g 024 Active glucose blood (FREESTYLE LITE) test stripIndications: Diabetic polyneuropathy associated with type 2 diabetes mellitus ([facility]) TEST BLOOD SUGAR ONCE DAILY IN THE MORNING 50 strip 11 024 Active pravastatin (Pravachol) 40 MG tabletIndications :Mixed hyperlipidemia TAKE 1 TABLET BY MOUTH AT BEDTIME 30 tablet Active amLODIPine (Norvasc) 10 MG tabletIndications :Primary hypertension Take 1 tablet (10 mg) by mouth Once per day. 30 tablet 11 024 2024 Active Diclofenac Sodium 1 % gelIndications:Ca lcaneal bursitis (heel), right APPLY 2 GRAMS TOPICALLY TO AFFECTED AREA(S) TWICE DAILY 100 g 2 09/16/2 024 Active dulaglutide (Trulicity) 4.5 MG/0.5ML solution pen-injectorIndic ations:Type 2 diabetes mellitus with other circulatory complication, without long-term current use of insulin ([facility]) Inject 4.5 mg under the skin 1 (one) time per week. 4 each Active Jardiance 25 MGIndications:Typ e 2 diabetes mellitus without complication, without long-term current use of insulin ([facility]) TAKE 1 TABLET BY MOUTH [...] complication, without long-term current use of insulin ([facility]) TAKE 2 TABLETS BY MOUTH TWICE DAILY IN THE MORNING AND EVENING WITH MEALS 360 tablet 3 Active triamcinolone (Nasacort) 55 MCG/ACT nasal inhaler INSTILL 2 SPRAYS IN EACH NOSTRIL ONCE DAILY IN THE MORNING 16.9 mL Active insulin glargine (Lantus SoloStar) 100 UNIT/ML penIndications:Ty pe 2 diabetes mellitus with stage 3 chronic kidney disease, with long-term current use of insulin, unspecified whether stage 3a or 3b CKD ([facility]) Inject 6 Units under the skin at bedtime. 3 mL 025 2025 Active insulin pen needle 32G x 4 mm miscIndications:T ype 2 diabetes mellitus with stage 3 chronic kidney disease, with long-term current use of insulin, unspecified whether stage 3a or 3b CKD ([facility]) Use as instructed 100 each 025 2025 Active Continuous Glucose Sensor (FreeStyle May 2 Sensor) miscIndications:T ype 2 diabetes mellitus with stage 3 chronic kidney disease, with long-term current use of insulin, unspecified whether stage 3a or 3b CKD ([facility]) Use as directed 2 each 3 025 Active Continuous Glucose Map Maker (FreeStyle May 2 [place]) deviceIndications :Type 2 diabetes mellitus with stage 3 chronic kidney disease, with long-term current use of insulin, unspecified whether stage 3a or 3b CKD ([facility]) Use as directed 1 each [...] mild pain. 30 tablet 2 025 Active Alcohol Swabs (Alcohol Pads) 70 % pads Use as directed 100 each 11 025 Active Alcohol Swabs (Alcohol Pads) 70 % pads Use as directed 100 each 11 023 2024 Discontinued(R eorder (will not trigger notification [...] prep supplies at home. Pt will call to inquire re appt. details PSA:07/2022 1.36--repeat ordered today AAA screening: Ordered 12/2023 Vision Exam: [facility]; UTD Dental Care: Overdue. Pt with anxiety [...] insufficiency 06/14/2018 Overview (11/26/2022): ?? Followed by [facility] vascular ?? Compression stockings ?? Pain managed with gabapeentin 800mg t.i.d ?? Followed by [facility] wound care for venous stasis ulcer [...] Foot Exam: 07/2023--RISK 1 Eye Exam: Through [facility]. UTD Statin: Yes ASA: Yes GISLEA/ARB: Yes Encouraged regular aerobic exercise for improved [...] Encounters Date Type Department Care Team Description 10/04/[address] [facility]ALK[facility]IN [address] [address] Melisa Jacob MD Pain in right lumbar region of back; Right flank pain 10/03/[address] [facility] P[facility] [address] [place] [address] Randolph Tg [facility] 09/15/2024 10:00 AM EDT Clinical Support [address] [address] Heidi Silva, RN Type 2 diabetes mellitus with stage 3b chronic kidney disease, with long-term current use of insulin ([facility]); Healthcare maintenance 09/15/[address] [address] Heidi Silva, RN CGM Appt 09/15/2024 Travel 09/01/2024 Orders Only GENERIC EXTERNAL DATA DEPARTMENT Provider, Generic External Data 09/01/[address] [address] Nicole Kaur RN Results 08/31/2024 3:00 PM EDT Office Visit [facility] [address] [address] Melisa Jacob MD Pain in right lumbar region of back (Primary Dx); Right flank pain; Calcaneal bursitis (heel), right; Class 1 obesity due to excess calories with serious comorbidity and body mass index (BMI) of 34.0 to 34.9 in adult; Dietary counseling; Exercise counseling 08/31/[address] [address] Melisa Jacob MD 08/31/[address] [address] RandolphTg [facility] Primary hypertension 08/23/2024 Orders Only [facility] External Provider, [facility] 08/16/2024 1:00 PM EDT Clinical Support [address] [address] Heidi Silva RN Type 2 diabetes mellitus with other circulatory complication, without long-term current use of insulin ([facility]) 08/16/2024 Travel 08/04/[address] [facility] [address] [place], [place] [phone] RandolphTg [facility] Primary osteoarthritis of right knee 07/25/[address] [address] RandolphTg FNP CGM PA 07/22/2024 10:15 AM EST Office Visit [address] [address] AnniaTg dalal FNP Type 2 diabetes mellitus with stage 3 chronic kidney disease, with long-term current use of insulin, unspecified whether stage 3a or 3b CKD ([facility]) (Primary Dx); Essential hypertension; Dietary counseling; Exercise counseling; Class 1 obesity due to excess calories with serious comorbidity and body mass index (BMI) of 34.0 to 34.9 in adult 07/22/2024 Travel 07/21/[address] [address] AnniaTg dalal FNP chart prep 07/07/[address] [facility] [address] [place] [address] [phone] Jaclyn Hutton FNP from Last 3 Months [...] Description 10/19/2024 11:15 AM EDT Office Visit [facility] MEDICINE [address] [place] [address] [facility] [address] [place] [address] Health Maintenance Due Date Last Done Comments [...] 11/08/2024 11/09/2023, 11/09/2023, 11/09/2023, Additional history exists Lipid Panel 01/21/2025 01/22/2024, [...] whether stage 3a or 3b CKD (CMS/HCC) LIPID PANEL, STANDARD Routine 01/22/2024 10:21 [...] time period is included. Color Urine Yellow [facility] Appearance Urine Clear [facility] PH 6.0 5.0 - 9.0 [facility] Glucose Urine UA >=1000(A) Negative mg/dL [facility] Urine Blood Small (1+)(A) Negative [facility] Specific [place] - Urine >=1.030(H) 1.005 - 1.025 [facility] Urine Protein 30 (1+)(A) Neg-Trace mg/dL [facility] Urine Ketones Negative Negative mg/dL [facility] Nitrite Urine Negative Negative [facility] Leukocyte Esterase Urine Negative Negative [facility] RBC Urine 6-10(A) 0 - 2 /HPF [facility] Urine WBC 0-5 0 - 5 /HPF [facility] Urine Squamous Epithelial Cell 0-2 0 - 2 /HPF [facility] Urine Bacteria None Seen None Seen [facility] Hyaline Casts, Urine 0-2 0 - 2 /LPF [facility] 09/01/2024 11:1 7 PM EDT 09/01/2024 11:23 PM EDT Narrative [facility] - 09/01/2024 11:32 PM EDT Urine, Clean Catch us Generic External Data Provider LAB URINE ORDERAB LES Final Result Performing Organization Address [facility]/State/ZIP Co de Phone Number [facility] [address] [place] [address] [phone] * CT Abdomen Pelvis w/ Contrast (09/01/2024 9:53 PM EDT) Anatomical Region Laterality Modality Body, Pelvis, Abdomen Computed T omography 09/01/2024 9:53 PM EDT Narrative 09/01/2024 9:56 PM EDT ? [facility] ?[address] ?[place] [address] ? CT Scan Report ? Signed ? Patient: Cade Omar,Brandt ?MR#: MM ?? [id number] ? : 1960 ?Acct:[id number] ? Age/Sex: 63 / M ?ADM Date: 09/01/24 ? Loc: HO.ED ? Attending Dr: ? Ordering Physician: Peter Urbina ?? Date of Service: 09/01/24 ?? Procedure(s): CT abdomen pelvis w IV con ?? Accession Number(s): [id number] ? cc: [facility]; Peter Urbina ? Report Number: ?? [id number]: Total DLP = ??768.00 mGy-cm ? CLINICAL [...] ? 09/01/242154 ? DD/ 52 ? TD/TT: 09/01/24 2153 ? [employer] Coach: ? Procedure Note Donotuseinterpreter, Image - 09/01/[address] [address] [address] Scan Report Signed Patient: Brandt NelsonMR#: [id number] : 9Acct:[id number] Age/Sex: 63 / MADM Date: 09/01/24 Loc: HO.ED Attending Dr: Ordering Physician: Peter Urbina Date of Service: 09/01/24 Procedure(s): CT abdomen pelvis w IV con Accession Number(s): [id number] cc: [facility]; Peter Urbina Report Number: [id number]: Total DLP = 768.00 mGy-cm CLINICAL HISTORY: [...] in OV> 09/01/242154 DD/ 52 TD/TT: 09/01/242152 [employer] Coach: [facility] External Provider IMG CT PROCEDURES Final Result * (ABNORMAL) VENOUS BLOOD GAS (09/01/2024 4:00 PM EDT) VBG pH 7.35 7.32 - 7.43 [facility] Comment:METER #: [id number] additional_comment: Cb toucheg VBG PCO2 54 mmHg [facility] Comment:METER #: [id number] additional_comment: Cb toucheg VBG PO2 42 mmHg [facility] Comment:METER #: [id number] additional_comment: Cb toucheg VBG Base Excess 3.5 mmol/L [facility] Comment:METER #: [id number] additional_comment: Cb toucheg VBG HCO3 30(H) 22 - 26 mmol/L [facility] Comment:METER #: [id number] additional_comment: Cb toucheg O2 Sat, Braulio 68.0 % [facility] Comment:METER #: [id number] additional_comment: Cb toucheg 09/01/2024 4:00 PM EDT 09/01/2024 4:05 PM EDT Generic External Data Provider LAB BLOOD ORDERAB LES Final Result [facility] [address] [place] [phone] * Beta-Hydroxybutyrate (09/01/2024 3:56 PM EDT) Pathologist [facility] Beta-Hydroxybut yrate 0.27 0.02 - 0.27 mmol/L [facility] 09/01/2024 3:56 PM EDT 09/01/2024 3:58 PM EDT us Generic External Data Provider LAB BLOOD ORDERAB LES Final Result [facility] [address] [place] [phone] * (ABNORMAL) CBC auto differential (09/01/2024 3:56 PM EDT) Only the most recent of2 resultswithin the time period is included. [facility] White Blood Count 6.8 4.8 - 10.8 X10*3/uL [facility] Red Blood Count 4.46(L) 4.60 - 5.80 X10*6/uL [facility] Hemoglobin 12.8(L) 14.0 - 18.0 g/dl [facility] Hematocrit 38.2(L) 42.0 - 52.0 % [facility] Mean Corpuscular Volume 85.7 80.0 - 98.0 fL [facility] Mean Corpuscular Hemoglobin 28.7 27.0 - 33.0 pg [facility] Mean Corpuscular HGB Conc 33.5 31.0 - 36.0 g/dl [facility] Red Cell Distribution Width 14.5 11.0 - 16.0 % [facility] Platelet Count 245 160 - 400 X10*3/uL [facility] Mean Platelet Volume 10.3 9.4 - 12.4 fL [facility] Neutrophils Percent Auto 58.6 45 - 73 % [facility] Imm Gran Pct Auto 0.4 0.0 - 0.4 % [facility] Lymphocytes Percent Auto 24.9 20 - 40 % [facility] Monocytes Percent Auto 12.5(H) 2 - 11 % [facility] Eosinophils Percent Auto 2.7 0 - 4 % [facility] Basophils Percent Auto 0.9 0 - 2 % [facility] NRBC Pct Auto 0.0 0.0 - 0.2 /100WBC [facility] Neutrophils Absolute Auto 4.0 2.0 - 8.3 x10*3/uL [facility] Imm Gran Abs Auto 0.03 0.00 - 0.03 X10*3/uL [facility] Lymphocytes Absolute Auto 1.7 1.2 - 4.9 X10*3/uL [facility] Monocytes Absolute Auto 0.9 0.1 - 1.2 X10*3/uL [facility] Eosinophils Absolute Auto 0.2 0.0 - 0.4 X10*3/uL [facility] Basophils Absolute Auto 0.1 0.0 - 0.2 X10*3/uL [facility] NRBC Abs Auto 0.000 0.0 - 0.012 X10*3/uL [facility] 09/01/2024 3:56 PM EDT 09/01/2024 3:58 PM EDT Generic External Data Provider LAB BLOOD ORDERAB LES Final Result Performing Organization Address City/[facility]/ZIP Co de Phone Number [facility] [address] [place] [phone] * Magnesium (09/01/2024 3:56 PM EDT) Magnesium 1.8 1.6 - 2.6 mg/dL [facility] 09/01/2024 3:56 PM EDT 09/01/2024 3:58 PM EDT Generic External Data Provider LAB BLOOD ORDERAB LES Final Result Performing Organization Address [facility]/ZIP Co de Phone Number [facility] [address] [place] [address] [phone] * (ABNORMAL) Lipase (09/01/2024 3:56 PM EDT) Only the most recent of2 resultswithin the time period is included. Lipase 143(H) 8 - 78 U/L [facility] 09/01/2024 3:56 PM EDT 09/01/2024 3:58 PM EDT us Generic External Data Provider LAB BLOOD ORDERAB LES Final Result [facility] [address] [place] [address] [phone] * (ABNORMAL) Comprehensive Metabolic Panel (09/01/2024 3:56 PM EDT) Sodium 142 135 - 145 mmol/L [facility] Potassium 4.9 3.3 - 5.1 mmol/L [facility] Chloride 108 96 - 108 mmol/L [facility] Carbon Dioxide 27 22 - 29 mmol/L [facility] Anion Gap 12 12 - 20 [facility] Urea Nitrogen (BUN) 29(H) 9 - 16 mg/dL [facility] Creatinine, Serum 1.48(H) 0.5 - 1.4 mg/dL [facility] Creatinine Clr Calc Pharmacy 60.5 [facility] Comment:eGFR (calculated fro m the MDRD study equation) and eCrCl(calculated from the Cockcroft-Gault equation) are based ondifferent parameters and may not yield comparable results.If eCrCl result is absurd, please check patient'sheight/weight. Estimated Glomerular Filt Rate 48 [facility] Comment:Chronic Kidney Disea se: Estimated GFR < 60 mL/min/1.08u2Ogkwya Kidney Disease: Estimated GFR < 15 mL/min/1.73m2 Glucose 145(H) 60 - 115 mg/dL [facility] Calcium 9.7 8.4 - 10.2 mg/dL [facility] Bilirubin, Total 0.3 0.0 - 1.0 mg/dL [facility] Aspartate Amino Transferase 33 5 - 37 U/L [facility] Alanine Aminotransferase 44(H) 0 - 40 U/L [facility] Total Protein 8.1(H) 6.5 - 8.0 g/dL [facility] Albumin Level 4.1 3.5 - 5.0 g/dL [facility] Alkaline Phosphatase 63 39 - 117 U/L [facility] 09/01/2024 3:56 PM EDT 09/01/2024 3:58 PM EDT us Generic External Data Provider LAB BLOOD ORDERAB LES Final Result Performing Organization Address [facility]/ZIP Co de Phone Number [facility] [address] [place] [phone] * Amylase (08/31/2024 3:30 PM EDT) Pathologist [facility] Amylase 85 28 - 100 U/L [facility] Blood Venous blood specimen / Unknown 08/31/2024 3:30 PM EDT 08/31/2024 6:01 PM EDT us Melisa Jacob MD LAB BLOOD ORDERABLES Final Result Performing Organization Address [facility] Co de Phone Number [facility] [address] [place] [phone] * (ABNORMAL) Hepatic Function Panel (08/31/2024 3:30 PM EDT) Bilirubin, Total 0.3 0.0 - 1.0 mg/dL [facility] Bilirubin, Direct 0.1 0.0 - 0.5 mg/dL [facility] Aspartate Amino Transferase 32 5 - 37 U/L [facility] Alanine Aminotransferase 41(H) 0 - 40 U/L [facility] Total Protein 8.1(H) 6.5 - 8.0 g/dL [facility] Albumin Level 4.0 3.5 - 5.0 g/dL [facility] Alkaline Phosphatase 56 39 - 117 U/L [facility] Blood Venous blood specimen / Unknown 08/31/2024 3:30 PM EDT 08/31/2024 6:01 PM EDT us Melisa Jacob MD LAB BLOOD ORDERABLES Final Result [facility] [address] [place] [phone] * XR KUB and Upright 2 Views (08/31/2024 3:24 PM EDT) Anatomical Region Laterality Modality Radiographic Cheryl ging 08/31/2024 3:24 PM EDT Narrative 08/31/2024 3:48 PM EDT ?[facility] ?[address] ?[place] [address] ?XRay Report ? Signed ? Patient: Cade Omar,Brandt ?MR#: MM ?? [id number] ? : 1960 ?Acct:[id number] ? Age/Sex: 63 / M ?ADM Date: 08/31/24 ? Loc: HO.HHCX ? Attending Dr: Melisa Jacob MD ? Ordering Physician: Melisa Jacob MD ?? Date of Service: 08/31/24 ?? Procedure(s): XR KUB ?? Accession Number(s): [id number] ? cc: Melisa Jacob MD ? EXAMINATION: [...] ??Tushar Cordero MD ??08/31/2024 03:45 PM EDT ?? RP ? Dictated By: ?Tushar Cordero MD ? Signed By: ?<Electronically signed by Tushar Cordero MD in OV> ?08/31/24 1545 ? DD/ 1524 ? TD/TT: 08/31/24 1530 ? [employer] Coach: ? Procedure Note Donotuseinterpreter, Image - 08/31/[address] [address] XRay Report Signed Patient: Brandt NelsonMR#: MM [id number] : 9Acct:[id number] Age/Sex: 63 / MADM Date: 08/31/24 Loc: HO.HHCX Attending Dr: Melisa Jacob MD Ordering Physician: Melisa Jacob MD Date of Service: 08/31/24 Procedure(s): XR KUB Accession Number(s): [id number] cc: Melisa Jacob MD EXAMINATION: XR ABDOMEN [...] 08/31/24 1545 DD/ 1524 TD/TT: 08/31/24 1530 [employer] Coach: us Melisa Cecil GLASS IMG XR PROCEDURES Final Re sult * US KELLY COMPLETE (08/24/2024 4:45 PM EDT) Anatomical Region Laterality Modality Abdomen Ultrasound 08/24/2024 4:45 PM EDT Narrative 08/24/2024 4:46 PM EDT ? [facility] ?[address] ?[place] [address] ? Ultrasound Report ? Signed ? Patient: Cade Whaley,Brandt ?MR#: MM ?? [id number] ? : 1960 ?Acct:[id number] ? Age/Sex: 63 / M ?ADM Date: 08/23/24 ? Loc: HO.US ? Attending Dr: Nieves Cabrera MD ? Ordering Physician: Nieves Cabrera MD ?? Date of Service: 08/23/24 ?? Procedure(s): US KELLY complete ?? Accession Number(s): [id number] ? cc: Nieves Cabrera MD; Tg Milner [facility] ? CLINICAL HISTORY: TOE PRESSURES, NON HEALING [...] MD in OV> ?08/24/24 1646 ? DD/ 1645 ? TD/TT: 08/24/24 1645 ? [employer] Coach: ? Procedure Note Donotuseinterpreter, Image - 08/24/[address] [address] Ultrasound Report Signed Patient: Yolande Nelson#: MM [id number] : 9Acct:[id number] Age/Sex: 63 / MADM Date: 08/23/24 Loc: . Attending Dr: Nieves Cabrera MD Ordering Physician: Nieves Cabrera MD Date of Service: 08/23/24 Procedure(s): US KELLY complete Accession Number(s): [id number] cc: Nieves Cabrera MD; [facility] [...] OV> 08/24/24 1646 DD/ 1645 TD/TT: 08/24/24 1645 [employer] Coach: us [facility] External Provider IMG US PROCEDURES Final Result * (ABNORMAL) POCT HGB A1C (07/22/2024 10:04 AM EST) Hemoglobin A1C 8.2(A) 4.0 - 6.0 % QC Media Lot # [id number] Lot# Expiration Date Blood 07/22/2024 10:0 4 AM EST [facility] POINT OF CARE TEST ENTER/EDIT ORDERABLES Final Result * POCT Glucose (07/22/2024 10:04 AM EST) Pathologist [facility] Glucose Blood, POC 145 60 - 200 mg/dL QC Media Lot # [id number] Lot# Expiration Date [id number] Blood Capillary blood specimen / Unknown 07/22/2024 10:04 AM EST [facility] POINT OF CARE TEST ENTER/EDIT ORDERABLES Final Result * (ABNORMAL) Lipid Panel, Standard (01/22/2024 10:21 AM EDT) Pathologist [facility] Triglycerides 291(H) <150 mg/dL [facility] Comment:Desirable Triglyceri de: less than 150 mg/dLBorderline High Triglyceride 150-199 mg/dLHigh Triglyceride: 200-499 mg/dLVery High Triglyceride: greater than or equal to 5OO mg/dL Cholesterol 166 <200 mg/dL [facility] Comment:Desirable Cholestero l: less than 200 mg/dLBorderline High Cholesterol: 200-239 mg/dLHigh Cholesterol: greater than 239 mg/dL LDL Cholesterol Calculated 77 <100 mg/dL [facility] Comment:Desirable LDL: less than 100 mg/dLNear Optimal/Above Optimal LDL: 110- 129 mg/dLBorderline High LDL: 130-159 mg/dLHigh LDL: 160-189 mg/dLVery High LDL: greater than or equal to 190 mg/dL HDL Cholesterol 31(L) >40 mg/dL [facility] Comment:Desirable HDL: great er than 40 mg/dL Note: This HDL assay may give artificially low results in patients with liver disease. Blood Venous blood specimen / Unknown 01/22/2024 10:21 AM EDT 01/22/2024 11:05 AM EDT [facility] LAB BLOOD ORDERABLES Final Re sult [facility] [address] [place] [phone] * Hepatitis C Antibody with Reflex to HCV, RNA, Quantitative, Real-Time PCR (09/01/2022 2:59 PM EDT) Hepatitis C Antibody NON-REACT DARY NON-REACT DARY [facility] Index 0.09 <1.00 [facility] Comment: HCV antibody was non-reactive. There is no laboratory evidence of HCV infection. In most cases, no further action is required. However, if recent HCV exposure is suspected, a test for HCV RNA (test code 49447) is suggested. For additional information please refer to http://education.Yamli/faq/RNQ45f8 (This link is being provided for informational/ educational purposes only.) Blood Venous blood specimen / Unknown 09/01/2022 2:59 PM EDT 09/01/2022 2:59 PM EDT [facility] LAB BLOOD ORDERABLES Final Re sult [facility] [address] [place] [address] [facility] [address] [place] [phone] from Last 3 Months or Most Recently Relevant to Health Maintenance Insurance [facility] [employer] (HMO D-SNP) [place] [id number] Care Teams Medical Record Librarian Relationship Specialty Start Date End Date Tg Milner FNP [address] [place] [phone] PCP - General Family Medicine 04/28/22
[2024-10-04 18:17] LABS: Vitamin B12 278 pg/mL (200-900)
[2024-10-05 05:02] LABS: ~Hepatitis B Surface Antibody NONREACTIVE (Nonreactive)
== END 2024-10-04 14:43 | disposition home or self-care (01) ==
LOC: HO.HHCL 14:42
PROVIDERS: Visit Provider Registered Nurse
DX: Z00.00 Encounter for general adult medical examination without abnormal findings (principal); E11.22 Type 2 diabetes mellitus with diabetic chronic kidney disease; N18.32 Chronic kidney disease, stage 3b; Z79.4 Long term (current) use of insulin
CPT/HCPCS: 36415; 82607; 86706

== ENCOUNTER 2024-10-05 13:28 | Outpatient (AMB) | payer OTHER, SELFPAY ==
[2024-10-05 13:47] VITALS: BP 126/62; PULSE 77; O2SAT 96; BMI 33.6
--- NOTE | 2024-10-05 13:47 | HO.NEPHOV ---
Vital Signs 10/05/24 13:47 Height 5 ft 10 in Weight 234 lb BMI 33.6 BP 126/62 Blood Pressure Location Lt brachial Position Sitting Pulse 77 Pulse Source Pulse Oximeter Pulse Oximetry (%) 96 Oxygen Delivery Method Room Air Intake Visit Reasons: R/S 09/14/2024 Conf Americanization Teacher Required: Yes Americanization Teacher Name: Lizy [phone] Accompanied by: Self / Same As Patient Allergies No Known Allergies [No Known Allergies*] Allergy (Verified 10/05/24 13:49) Medication List - Last Reconciled 10/05/24 by Keith Willis MD acetaminophen 500 mg PO Q6H PRN alcohol swabs (Alcohol Prep Pads) pad topical DAILY amlodipine 10 mg PO DAILY aspirin (Adult Aspirin Regimen) 81 mg PO DAILY bisacodyl 5 mg PO ONCE 1 day blood sugar diagnostic (FreeStyle Lite Strips) As directed clotrimazole-betamethasone 1-0.05 % 1 appl topical BID 4 weeks diphenoxylate-atropine 2.5-0.025 mg (Lomotil) 1 tab PO DAILY PRN docusate sodium 250 mg PO BID PRN dulaglutide (Trulicity) mg subcut empagliflozin (Jardiance) 25 mg PO DAILY gabapentin 800 mg PO BID lancets (TRUEplus Lancets) As directed latanoprost 0.005% 1 drp ophthalmic (eye) BEDTIME melatonin 10 mg PO BEDTIME PRN metformin 1,000 mg PO BID metoprolol succinate ER 200 mg PO DAILY pantoprazole 20 mg PO DAILY polyethylene glycol 3350 (Miralax) 238 grams PO ONCE 1 day pravastatin 40 mg PO DAILY HPI Comments Details: Brandt is a pleasant 62-year-old man with a history of longstanding diabetes mellitus and hypertension. He has been referred for evaluation of chronic kidney disease. Over the past 2 years there has been a gradual increase in serum creatinine from 1.4 up to 1.8 mg/dL. As of 01/19/2024 serum creatinine was 1.8 mg/dL. He was on lisinopril 40 mg along with amlodipine and hydrochlorothiazide 40 mg a day. Recently lisinopril has been placed on hold. He has a history of taking NSAIDs for almost a year but he had stopped NSAIDs about 4 years ago. Ongoing medical problems also includes obstructive sleep apnea history of Jewell's palsy, diabetic polyneuropathy obesity and non alcoholic steatohepatitis. He has a history of smoking he quit smoking in 2022. No history of any alcohol abuse or drug abuse. He complains of increased urinary frequency. No hesitancy no hematuria. No shortness of breath. No cough. No nausea or vomiting. No chest pain. No rash no fever he has chronic leg edema. 05/18/24 Recent cellulitis ;On Doxy ;c/o increased urination 06/15/24 Doing better;Off HcTZ 10/05/24 Developed urinary retention Bo was inserted. [facility] Medical History Osteomyelitis DM2 (diabetes mellitus, type 2) Essential hypertension Right lumbar radiculopathy Arthritis of both knees Balanitis Type 2 diabetes mellitus with polyneuropathy Hyperlipidemia LDL goal <100 Obesity due to excess calories Type 2 diabetes mellitus with hyperglycemia, with long-term current use of insulin Surgical History H/O colonoscopy Hx of tonsillectomy Hx of appendectomy Family History Father No problems noted. 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 Lungs entry equal no rales. Heart S1-S2 heard no gallop or rub. Abdomen soft nontender. Neuro alert awake oriented. No asterixis. Extremities no edema. Bo catheter in place Results Reviewed Nephrology Results: Hgb 12.8 g/dl (14.0-18.0) L 09/01/24 WBC 6.8 X10*3/uL (4.8-10.8) 09/01/24 Plt Count 245 X10*3/uL (160-400) 09/01/24 Sodium 142 mmol/L (135-145) 09/01/24 Potassium 4.9 mmol/L (3.3-5.1) 09/01/24 Chloride 108 mmol/L (96-108) 09/01/24 Carbon Dioxide 27 mmol/L (22-29) 09/01/24 BUN 29 mg/dL (9-16) H 09/01/24 Creatinine 1.48 mg/dL (0.5-1.4) H 09/01/24 Calcium 9.7 mg/dL (8.4-10.2) 09/01/24 Urine Protein 30 (1+) mg/dL (Neg-Trace) H 09/01/24 Assessment & Plan Assessment & Plan (1) CKD (chronic kidney disease): Code(s): N18.9 - Chronic kidney disease, unspecified Category: Medical (2) Essential hypertension: Code(s): I10 - Essential (primary) hypertension Category: Medical (3) DM2 (diabetes mellitus, type 2): Code(s): E11.9 - Type 2 diabetes mellitus without complications Category: Medical Qualifiers: Diabetes mellitus mcc insulin use: without keno terminal operator use Diabetes mellitus complication status: with hyperglycemia Qualified Code(s): E11.65 - Type 2 diabetes mellitus with hyperglycemia Plan 63-year-old man with a history of longstanding diabetes mellitus hypertension with obesity and sleep apnea has chronic kidney disease. Over the last 3 years has been a gradual increase serum creatinine from 1.4-1.8. He probably has underlying chronic kidney disease due to hypertensive diabetic kidney disease. . urine sediments were benign and therefore interstitial nephritis or glomerular nephritis seem unlikely at this time BAsed on USG in Mar 2024, NO obstructive uropathy. However, developed urinary retention requiring bo in August 2024 Waiting to see Urology ( 10/28/24) Recommendation Keep bo Await Urology evaluation for urinary retention Optimize blood pressure. Maintain blood pressure less than 130/80. Stay on low-sodium diet. Encouraged weight loss. Continue to hold Lisinopril Continue to avoid nephrotoxic agents including NSAIDs. Orders: Orders Basic Metabolic Panel Today N18.9 - Chronic kidney disease, unspecified Coding Level of Care Code Est Pt Level 4 (98677) Diagnoses CKD (chronic kidney disease) N18.9 Essential hypertension I10 Type 2 diabetes mellitus with hyperglycemia, without long-term current use of insulin E11.65 Diabetes mellitus mcc insulin use: without keno terminal operator use Diabetes mellitus complication status: with hyperglycemia
--- OUTSIDE RECORDS SUMMARY | 2024-10-05 14:42 | XMS_ITS | Encounter Summary ---
Author Organization [employer] Address [address] [facility] [address] [place] [address] Care Team Providers Care Dress Marker Name Role Phone [place] [facility] Primary Care Provider [phone] Reason for Visit * Reason Onset Date Comments Med Refill 10/03/2024 Encounter Details Date Type Department Care Team ([facility] st Contact Info) Description 10/03/2024 Refill [facility] [address] [place], [place] [id number] [facility] [address] [place] [address] Social History Tobacco Use Types Packs/Day Years [...] Description 10/19/2024 11:15 AM EDT Office Visit [facility] [address] [place] [address] Tg Milner FNP [address] [place] [address] documented as of this encounter Visit Diagnoses Not on filedocumented in this encounter Additional Health Concerns Assessment Noted Time PHQ-9 Depression Total Score: 0 07/22/19 25 10:03 AM EST documented as of this encounter Care Teams Dress Marker Relationship Specialty Start Date End Date Tg Milner FNP [address] [place] [address] PCP - General Family Medicine 04/28/22 documented as of this encounter
--- OUTSIDE RECORDS SUMMARY | 2024-10-05 14:42 | XMS_ITS | Encounter Summary ---
Author Organization [employer] [facility] Address [address] [place] [address] [address] [address] Care Team Providers Care Citizen Participation Specialist Name Role Phone [facility] Primary Care Provider [phone] Reason for Visit * Reason Comments Med Refill Encounter Details Date Type Department Care Team (Late Contact Info) Description 12/22/2022 Refill [facility] [address] [place] [address] [facility] [address] [place] [address] Primary hypertension Social History Tobacco Use Types [...] Description 10/19/2024 11:15 AM EDT Office Visit [facility] [address] [place] [phone] Tg Milner FNP [address] [place] [address] documented as of this encounter Visit Diagnoses Diagnosis Primary hypertension Unspecified essential hypertension documented in this encounter Additional Health Concerns Assessment Noted Time PHQ-9 Depression Total Score: 0 11/25/19 23 3:32 PM EDT documented as of this encounter Care Teams Citizen Participation Specialist Relationship Specialty Start Date End Date Tg Milner FNP [address] [place] [address] PCP - General Family Medicine 04/28/22 documented as of this encounter
--- OUTSIDE RECORDS SUMMARY | 2024-10-05 14:42 | XMS_ITS | Encounter Summary ---
Author Organization [employer] Address [address] [facility] [address] [place] [address] Care Team Providers Care Telesales Specialist Name Role Phone [facility] Primary Care Provider [phone] Reason for Visit * Reason Comments Med Refill Encounter Details Date Type Department Care Team ([facility] st Contact Info) Description 07/01/[address] [facility] [address] [place] [address] [facility] [address] [place] [address] Primary osteoarthritis of right knee Social History [...] the past 12 months, has t he [employer] gas, oil or water company threatened to [...] AM EDT Office Visit [facility] [address] [place] [address] Tg Milner FNP [address] [place] [address] documented as of this encounter Visit Diagnoses Diagnosis Primary osteoarthritis of right knee documented in this encounter Additional Health Concerns Assessment Noted Time PHQ-9 Depression Total Score: 0 11/25/19 23 3:32 PM EDT documented as of this encounter Care Teams Telesales Specialist Relationship Specialty Start Date End Date Tg Milner FNP [address] [place] [address] PCP - General Family Medicine 04/28/22 documented as of this encounter
--- OUTSIDE RECORDS SUMMARY | 2024-10-05 14:42 | XMS_ITS | Encounter Summary ---
Author Organization [email or web address] [facility] Address [address] [place] [address] Care Team Providers Care Moulder Operator Name Role Phone [facility] Primary Care Provider [phone] Reason for Visit * Reason Comments Med Refill Encounter Details Date Type Department Care Team (Late st Contact Info) Description 12/25/2022 Refill [facility] [address] [place] [address] [facility] [address] [place], [place] [phone] Type 2 diabetes mellitus without complication, without long-term current use of insulin ([facility]) Social History Tobacco Use Types [...] Description 10/19/2024 11:15 AM EDT Office Visit [facility] [address] [place] [address] [facility] [address] [place], [place] [phone] documented as of this encounter Visit Diagnoses Diagnosis Type 2 diabetes mellitus without complication, without long-term current use of insulin ([facility]) documented in this encounter Additional Health Concerns Assessment Noted Time PHQ-9 Depression Total Score: 0 11/25/19 23 3:32 PM EDT documented as of this encounter Care Teams Moulder Operator Relationship Specialty Start Date End Date Tg Milner FNP [address] [place] [address] PCP - General Family Medicine 04/28/22 documented as of this encounter
--- OUTSIDE RECORDS SUMMARY | 2024-10-05 14:42 | XMS_ITS | Clinical Summary ---
Author Organization [facility] Address [address] [place] [address] Phone Care Team Providers Care Supervisor Metal Placing Name Role Phone [facility] Primary Care Provider [phone] Allergies No known active allergies Medications acetaminophen [...] EDT - 09/13/2024 6:03 AM EDT Emergency [facility] Emergency [address] [place] [address] Paloma Perry MD Hemorrhagic cystitis (Primary Dx); [...] microscopic and culture (09/13/2024 2:32 AM EDT) [facility] Specific [place] Urine 1.020 1.003 - 1.030 LAB URINALYSIS - AUTOMATED METHOD 09/13/2024 3:25 AM [facility] pH, Urine 8.0 5.0 - 8.0 pH LAB URINALYSIS - AUTOMATED METHOD 09/13/2024 3:25 AM [facility] Leukocytes, Urine Moderate(A) Negative LAB URINALYSIS - AUTOMATED METHOD 09/13/2024 3:25 AM [facility] Nitrite, Urine Positive(A) Negative LAB URINALYSIS - AUTOMATED METHOD 09/13/2024 3:25 AM [facility] Protein, Urine >=300(A) <=Trace mg/dL LAB URINALYSIS - AUTOMATED METHOD 09/13/2024 3:25 AM [facility] Glucose, Urine >=1000(A) Negative mg/dL LAB URINALYSIS - AUTOMATED METHOD 09/13/2024 3:25 AM EDT [facility] Ketones, Urine Negative Negative mg/dL LAB URINALYSIS - AUTOMATED METHOD 09/13/2024 3:25 AM [facility] Urobilinogen , Urine 0.2 0.2 - 1.0 mg/dL LAB URINALYSIS - AUTOMATED METHOD 09/13/2024 3:25 AM [facility] Bilirubin, Urine Small(A) Negative LAB URINALYSIS - AUTOMATED METHOD 09/13/2024 3:25 AM [facility] Blood, Urine Large(A) Negative LAB URINALYSIS - AUTOMATED METHOD 09/13/2024 3:25 AM [facility] RBC, Urine 100(H) 0 - 4 /HPF 09/13/2024 3:25 AM [facility] WBC, Urine 100(H) 0 - 4 /HPF 09/13/2024 3:25 AM [facility] Squamous Epithelial, Urine 4 0 - 60 /LPF 09/13/2024 3:25 AM [facility] Bacteria, Urine Moderate(A) Negative /HPF 09/13/2024 3:25 AM [facility] Hyaline Casts, Urine 4(H) 0 - 3 /LPF 09/13/2024 3:25 AM [facility] Urine Indwelling urinary catheter / Unknown Non-blood Collection / Unknown 09/13/2024 2:32 AM EDT 09/13/2024 3:03 AM EDT us Paloma Perry MD LAB URINE ORDERABLES Fin al Result [facility] [address] [place] [address], * Kenyon urine culture tube (09/13/2024 2:32 AM EDT) Extra Tube Hold for add-ons. 09/13/2024 5:01 AM EDT [facility] Comment:Auto resulted. Urine Indwelling urinary catheter / Unknown Non-blood Collection / Unknown 09/13/2024 2:32 AM EDT 09/13/2024 3:03 AM EDT us Paloma Perry MD LAB URINE ORDERABLES Fin al Result [facility] [address] [place] [address], * (ABNORMAL) Culture urine (09/13/2024 2:32 AM EDT) Pathologist [facility] Culture, Urine >100,000 CFU/mL Proteus mirabilis(A) JEZ 09/16/2024 8:51 AM EDT [facility] Comment: Edited result: Previously reported as Proteus species on 09/14/2024 at 1010 EDT. Culture, Urine 10,000-49,000 CFU/mL Klebsiella pneumoniae ssp pneumoniae(A) JEZ 09/16/2024 8:51 AM EDT [facility] Comment: The organism value for [...] JEZ <=0.12 ug/ml: Susceptible Proteus mirabilis Meropenem JZE 0.5 ug/ml: Susceptible Proteus mirabilis Amikacin JEZ [...] MICROBIOLOGY - GENER AL ORDERABLES Final Result [facility] [address] [place] [address], [place] [phone] * Respiratory virus panel molecular study (09/13/2024 1:36 AM EDT) [facility] Adenovirus Detection by PCR Not Detected Not Detected LAB MICROBIOLOGY METHOD 09/13/2024 2:48 AM EDT [facility] Influenza A PCR Not Detected Not Detected LAB MICROBIOLOGY METHOD 09/13/2024 2:48 AM EDT [facility] Influenza B PCR Not Detected Not Detected LAB MICROBIOLOGY METHOD 09/13/2024 2:48 AM EDT [facility] Coronavirus 229E Not Detected Not Detected LAB MICROBIOLOGY METHOD 09/13/2024 2:48 AM EDT [facility] Coronavirus HKU1 Not Detected Not Detected LAB MICROBIOLOGY METHOD 09/13/2024 2:48 AM EDT [facility] Coronavirus OC43 Not Detected Not Detected LAB MICROBIOLOGY METHOD 09/13/2024 2:48 AM EDT [facility] Coronavirus NL63 Not Detected Not Detected LAB MICROBIOLOGY METHOD 09/13/2024 2:48 AM EDT [facility] Parainfluenza Virus 1 Not Detected Not Detected LAB MICROBIOLOGY METHOD 09/13/2024 2:48 AM EDT [facility] Parainfluenza Virus 2 Not Detected Not Detected LAB MICROBIOLOGY METHOD 09/13/2024 2:48 AM EDT [facility] Parainfluenza Virus 3 Not Detected Not Detected LAB MICROBIOLOGY METHOD 09/13/2024 2:48 AM EDT [facility] Parainfluenza Virus 4 Not Detected Not Detected LAB MICROBIOLOGY METHOD 09/13/2024 2:48 AM EDT [facility] RSV PCR Not Detected Not Detected LAB MICROBIOLOGY METHOD 09/13/2024 2:48 AM EDT [facility] Human Metapneumovirus A and B Not Detected Not Detected LAB MICROBIOLOGY METHOD 09/13/2024 2:48 AM EDT [facility] Rhinovirus/Entero virus Not Detected Not Detected LAB MICROBIOLOGY METHOD 09/13/2024 2:48 AM EDT [facility] Bordetella pertussis Not Detected Not Detected LAB MICROBIOLOGY METHOD 09/13/2024 2:48 AM EDT [facility] Bordetella parapertussis Not Detected Not Detected LAB MICROBIOLOGY METHOD 09/13/2024 2:48 AM EDT [facility] Mycoplasma pneumo by PCR Not Detected Not Detected LAB MICROBIOLOGY METHOD 09/13/2024 2:48 AM EDT [facility] Chlamydia pneumoniae Not Detected Not Detected LAB MICROBIOLOGY METHOD 09/13/2024 2:48 AM EDT [facility] SARS COV-2 Not Detected Not Detected LAB MICROBIOLOGY METHOD 09/13/2024 2:48 AM EDT [facility] Swab Both anterior nares / Unknown Non-blood Collection / Unknown 09/13/2024 1:36 AM EDT 09/13/2024 1:50 AM EDT Narrative [facility] - 09/13/2024 2:48 AM EDT Testing was performed using the enavu Respiratory Pathogen PCR Assay. All results must [...] Paloma Perry MD LAB MICROBIOLOGY - [facility] AL ORDERABLES Final Result [facility] [address] [place] [address], * ECG-Annotated (09/13/2024) us Provider Onbase ECG ORDERABLES Final Result * (ABNORMAL) CBC auto differential (09/12/2024 7:05 PM EDT) [facility] WBC 6.0 4.8 - 10.8 K/mcL LAB HEMETOLOGY METHOD 09/12/2024 7:44 PM [facility] RBC 4.70 4.50 - 5.50 M/mcL LAB HEMETOLOGY METHOD 09/12/2024 7:44 PM [facility] Hemoglobin 13.1(L) 13.5 - 17.5 g/dL LAB HEMETOLOGY METHOD 09/12/2024 7:44 PM [facility] Hematocrit 39.6(L) 42.0 - 54.0 % LAB HEMETOLOGY METHOD 09/12/2024 7:44 PM [facility] MCV 85.0 79.0 - 98.0 FL LAB HEMETOLOGY METHOD 09/12/2024 7:44 PM [facility] MCH 28.1 27.0 - 32.0 pcg LAB HEMETOLOGY METHOD 09/12/2024 7:44 PM [facility] MCHC 33.1 32.0 - 37.0 g/dL LAB HEMETOLOGY METHOD 09/12/2024 7:44 PM [facility] RDW 13.9 11.0 - 15.0 % LAB HEMETOLOGY METHOD 09/12/2024 7:44 PM [facility] Platelets 237 130 - 400 K/mcL LAB HEMETOLOGY METHOD 09/12/2024 7:44 PM [facility] MPV 10.2 7.0 - 11.0 FL LAB HEMETOLOGY METHOD 09/12/2024 7:44 PM [facility] NRBC 0.0 <1.0 % LAB HEMETOLOGY METHOD 09/12/2024 7:44 PM [facility] NRBC Absolute 0.00 <0.10 K/mcL LAB HEMETOLOGY METHOD 09/12/2024 7:44 PM [facility] Neutrophils Relative 52.6 % LAB HEMETOLOGY METHOD 09/12/2024 7:[facility] Lymphocytes Relative 26.1 % LAB HEMETOLOGY METHOD 09/12/2024 7:44 PM [facility] Monocytes Relative 14.9 % LAB HEMETOLOGY METHOD 09/12/2024 7:44 PM [facility] Eosinophils Relative 4.4 % LAB HEMETOLOGY METHOD 09/12/2024 7:44 PM [facility] Basophils Relative 1.2 % LAB HEMETOLOGY METHOD 09/12/2024 7:44 PM [facility] Immature Granulocytes Relative 0.8 % LAB HEMETOLOGY METHOD 09/12/2024 7:44 PM [facility] Neutrophils Absolute 3.14 1.50 - 7.00 K/mcL LAB HEMETOLOGY METHOD 09/12/2024 7:44 PM [facility] Lymphocytes Absolute 1.56 1.00 - 5.00 K/mcL LAB HEMETOLOGY METHOD 09/12/2024 7:44 PM [facility] Monocytes Absolute 0.89 0.20 - 1.00 K/mcL LAB HEMETOLOGY METHOD 09/12/2024 7:44 PM [facility] Eosinophils Absolute 0.26 0.00 - 0.50 K/mcL LAB HEMETOLOGY METHOD 09/12/2024 7:44 PM [facility] Basophils Absolute 0.07 0.00 - 0.20 K/mcL LAB HEMETOLOGY METHOD 09/12/2024 7:44 PM [facility] Immature Granulocytes Absolute 0.05(H) 0.00 - 0.03 K/mcL LAB HEMETOLOGY METHOD 09/12/2024 7:44 PM [facility] Blood Venous blood specimen / Unknown Venipuncture / Unknown 09/12/2024 7:05 PM EDT 09/12/2024 7:34 PM EDT Paloma Perry MD LAB BLOOD ORDERABLES Fin al Result Performing Organization Address [facility]/ZIP Co de Phone Number [facility] [address] [place] [address], [place] [phone] * Magnesium (09/12/2024 7:05 PM EDT) Pathologist [facility] Magnesium 1.9 1.9 - 2.6 mg/dL LAB CHEMISTRY METHOD 09/12/2024 8:05 PM EDT [facility] Blood Venous blood specimen / Unknown Venipuncture / Unknown 09/12/2024 7:05 PM EDT 09/12/2024 7:34 PM EDT Paloma Perry MD LAB BLOOD ORDERABLES Fin al Result Performing Organization Address [facility]/ZIP Co de Phone Number [facility] [address] [place] [address], [place] [phone] * (ABNORMAL) Basic metabolic panel (09/12/2024 7:05 PM EDT) [facility] Sodium 132(L) 133 - 145 mmol/L LAB CHEMISTRY METHOD 09/12/2024 8:05 PM EDT [facility] Potassium 4.3 3.5 - 5.5 mmol/L LAB CHEMISTRY METHOD 09/12/2024 8:05 PM EDT [facility] Chloride 100 96 - 110 mmol/L LAB CHEMISTRY METHOD 09/12/2024 8:05 PM EDT [facility] CO2 25 21 - 32 mmol/L LAB CHEMISTRY METHOD 09/12/2024 8:05 PM EDT [facility] Anion Gap 7 3 - 11 LAB CHEMISTRY METHOD 09/12/2024 8:05 PM EDT [facility] Glucose 216(H) 70 - 100 mg/dL LAB CHEMISTRY METHOD 09/12/2024 8:05 PM EDT [facility] BUN 31(H) 5 - 25 mg/dL LAB CHEMISTRY METHOD 09/12/2024 8:05 PM T [facility] Creatinine 1.87(H) 0.70 - 1.30 mg/dL LAB CHEMISTRY METHOD 09/12/2024 8:05 PM EDT [facility] eGFR 39(L) >=60 mL/min/1. 73m2 LAB CHEMISTRY METHOD 09/12/2024 8:05 PM EDT [facility] Comment:Calculation based on the??Chronic Kidney Disease Epidemiology Collaboration (CKD-EPI) equation refit??without adjustment for race. BUN/Creatinine Ratio 16.6 LAB CHEMISTRY METHOD 09/12/2024 8:05 PM EDT [facility] Calcium 9.7 8.5 - 10.5 mg/dL LAB CHEMISTRY METHOD 09/12/2024 8:05 PM EDT [facility] Blood Venous blood specimen / Unknown Venipuncture / Unknown 09/12/2024 7:05 PM EDT 09/12/2024 7:34 PM EDT us Paloma Perry MD LAB BLOOD ORDERABLES Fin al Result [facility] [address] [place] [address], * ECG 12 lead (09/12/2024 7:03 PM EDT) Ventricular Rate ECG 111 BPM GEMUSE Atrial Rate 111 BPM GEMUSE P-R Interval 194 ms GEMUSE QRS Duration 118 ms GEMUSE Q-T Interval 342 ms GEMUSE QTc 465 ms GEMUSE P Wave [place] 61 degrees GEMUSE R [place] -71 degrees GEMUSE T [place] 36 degrees GEMUSE ECG Interpretation Sinus tachycardia Right bundle branch block Left anterior fascicular block Bifascicular block Abnormal ECG No previous ECGs available Confirmed by Arnav GARCIA YUFENG ([id number]) on 09/12/2024 7:11:46 PM GEMUSE 09/12/2024 7:03 PM EDT 09/12/2024 7:11 PM EDT us Paloma Perry MD ECG ORDERABLES Final Re sult GEMUSE from Last 3 Months Insurance [facility] [employer] Member Subscriber Plan / Payer (Ef fective 2024-Present) Name:Brandt Nelson Relation to Subscriber:Self Name:Brandt Nelson Payer ID:[id number] Group ID:Not on file Type:Not on file Address: [facility] [place] [address] Care Teams Supervisor Metal Placing Relationship Specialty Start Date End Date [facility] [address] [phone] PCP - General 01/05/24
--- OUTSIDE RECORDS SUMMARY | 2024-10-05 14:42 | XMS_ITS | Encounter Summary ---
Author Organization [employer] [facility] Address [address] [place] [address] [address] [address] Care Team Providers Care Cutter And Paster Press Clippings Name Role Phone Annia, [facility] Primary Care Provider [phone] Encounter Details Date Type Department Care Team (Late st Contact Info) Description 06/03/2022 Telephone [facility] [address] [place] [address] [facility] [address] [place] [address] Social History Tobacco Use Types Packs/Day Years [...] Description 10/19/2024 11:15 AM EDT Office Visit [facility] [address] [place] [address] [facility] [address] [place] [address] documented as of this encounter Visit Diagnoses Not on filedocumented in this encounter Care Teams Cutter And Paster Press Clippings Relationship Specialty Start Date End Date Tg Milner [facility] [address] [place] [phone] PCP - General Family Medicine 04/28/22 documented as of this encounter
--- OUTSIDE RECORDS SUMMARY | 2024-10-05 14:42 | XMS_ITS | Encounter Summary ---
Author Organization [employer] [facility] Address [address] [place] [address] Care Team Providers Care Monument Erector Name Role Phone Tg Milner [facility] Primary Care Provider [phone] Reason for Visit * Reason Comments Med Refill Encounter Details Date Type Department Care Team (Late st Contact Info) Description 06/18/2022 Refill [facility] [address] [place] [address] Tg Milner [facility] [address] [place] [address] Type 2 diabetes mellitus without complication, without [...] Description 10/19/2024 11:15 AM EDT Office Visit [facility] [address] [place] [address] Tg Milner [facility] [address] [place] [address] documented as of this encounter Visit Diagnoses Diagnosis Type 2 diabetes mellitus without complication, without long-term current use of insulin (CMS/HCC) documented in this encounter Care Teams Monument Erector Relationship Specialty Start Date End Date Tg Milner [facility] [address] [place] [address] PCP - General Family Medicine 04/28/22 documented as of this encounter
--- OUTSIDE RECORDS SUMMARY | 2024-10-05 14:42 | XMS_ITS | Encounter Summary ---
Author Organization [facility] Address [address] [place] [address] Care Team Providers Care Ostomy Care Nurse Name Role Phone Tg Milner [facility] Primary Care Provider [phone] Encounter Details Date Type Department Care Team (Late st Contact Info) Description 04/17/2023 Abstract [facility] [address] [place] [address] [employer] Social History Tobacco Use Types [...] Description 10/19/2024 11:15 AM EDT Office Visit [facility] [address] [place] [address] Tg Milner [facility] [address] [place] [address] documented as of this encounter Visit Diagnoses Not on filedocumented in this encounter Additional Health Concerns Assessment Noted Time PHQ-9 Depression Total Score: 0 11/25/19 23 3:32 PM EDT documented as of this encounter Care Teams Ostomy Care Nurse Relationship Specialty Start Date End Date Tg Milner [facility] [address] [place] [address] PCP - General Family Medicine 04/28/22 documented as of this encounter
--- OUTSIDE RECORDS SUMMARY | 2024-10-05 14:42 | XMS_ITS | Clinical Summary ---
Author Organization [employer] Address [address] [place] [address] 7[address] [place] [address] Care Team Providers Care Cuff Stitcher Name Role Phone Tg Milner [facility] Primary Care Provider [phone] Allergies No known active allergies Medications cyclobenzaprine [...] polyneuropathy associated with type 2 diabetes mellitus ([facility]) TEST BLOOD SUGAR ONCE DAILY [...] complication, without long-term current use of insulin ([facility]) Inject 4.5 mg under the skin 1 (one) time per week. 4 each Active Jardiance 25 MGIndications:Typ e 2 diabetes mellitus without complication, without long-term current use of insulin ([facility]) TAKE 1 TABLET BY MOUTH [...] complication, without long-term current use of insulin ([facility]) TAKE 2 TABLETS BY MOUTH [...] unspecified whether stage 3a or 3b CKD ([facility]) Inject 6 Units under the skin at bedtime. 3 mL 025 2025 Active insulin pen needle 32G x 4 mm miscIndications:T ype 2 diabetes mellitus with stage 3 chronic kidney disease, with long-term current use of insulin, unspecified whether stage 3a or 3b CKD ([facility]) Use as instructed 100 each 025 2025 Active Continuous Glucose Sensor (FreeStyle May 2 Sensor) miscIndications:T ype 2 diabetes mellitus with stage 3 chronic kidney disease, with long-term current use of insulin, unspecified whether stage 3a or 3b CKD ([facility]) Use as directed 2 each 3 025 Active Continuous Glucose Controls Operator Molded Goods (FreeStyle May 2 [place]) deviceIndications :Type 2 diabetes mellitus with stage 3 chronic kidney disease, with long-term current use of insulin, unspecified whether stage 3a or 3b CKD ([facility]) Use as directed 1 each [...] today AAA screening: Ordered 12/2023 Vision Exam: [facility]; UTD Dental Care: Overdue. Pt with anxiety [...] insufficiency 06/14/2018 Overview (11/26/2022): ?? Followed by [facility] vascular ?? Compression stockings ?? Pain managed with gabapeentin 800mg t.i.d ?? Followed by [facility] wound care for venous stasis ulcer Assessment [...] Foot Exam: 07/2023--RISK 1 Eye Exam: Through [facility]. UTD Statin: Yes ASA: Yes GISELA/ARB: Yes [...] Type Department Care Team Description 10/04/2024 Refill [facility] WALK-IN [address] [address] Melisa Jacob MD Pain in right lumbar region of back; Right flank pain 10/03/2024 Refill [facility] MED & PEDS [address] [place] [address] [place] [facility] 09/15/2024 10:00 AM EDT Clinical Support [address] [address] Heidi Silva, RN Type 2 diabetes mellitus with stage 3b chronic kidney disease, with long-term current use of insulin ([facility]); Healthcare maintenance 09/15/[address] [address] Heidi Silva, RN CGM Appt 09/15/2024 Travel 09/01/2024 Orders Only GENERIC EXTERNAL DATA DEPARTMENT Provider, Generic External Data 09/01/[address] [address] Nicole Kaur RN Results 08/31/2024 3:00 PM EDT Office Visit [facility] WALK-IN [address] [address] Melisa Jacob MD Pain in right lumbar region of back (Primary Dx); Right flank pain; Calcaneal bursitis (heel), right; Class 1 obesity due to excess calories with serious comorbidity and body mass index (BMI) of 34.0 to 34.9 in adult; Dietary counseling; Exercise counseling 08/31/[address] [address] Melisa Jacob MD 08/31/[address] [address] [place] [facility] Primary hypertension 08/23/2024 Orders Only [facility] External Provider, [facility] 08/16/2024 1:00 PM EDT Clinical Support [address] [address] Heidi Silva RN Type 2 diabetes mellitus with other circulatory complication, without long-term current use of insulin ([facility]) 08/16/2024 Travel 08/04/2024 Refill [facility] MED [facility] P[facility]S [address] [place], [place] [phone] [facility] Primary osteoarthritis of right knee 07/25/[address] [address] [facility] CGM PA 07/22/2024 10:15 AM EST Office Visit [address] [address] [place] [facility] Type 2 diabetes mellitus with stage 3 chronic kidney disease, with long-term current use of insulin, unspecified whether stage 3a or 3b CKD ([facility]) (Primary Dx); Essential hypertension; Dietary counseling; Exercise counseling; Class 1 obesity due to excess calories with serious comorbidity and body mass index (BMI) of 34.0 to 34.9 in adult 07/22/2024 Travel 07/21/[address] [address] [place] [facility] chart prep from Last 3 Months Immunizations Name Administration [...] Description 10/19/2024 11:15 AM EDT Office Visit [facility] MEDICINE [address] [place], [place] [phone] [place] Tg, NATURAL RESOURCE TECHNICIAN [address], [place] [phone] Health Maintenance Due Date Last Done Comments [...] Procedure Name Priority Date/Time Associated Diagnosis Comments HEPATITIS B SURFACE ANTIBODY, QUALITATIVE Routine 10/04/2024 2:44 PM EDT Healthcare maintenance VITAMIN B12 Routine 10/04/2024 2:44 PM EDT Type 2 diabetes mellitus with stage 3b chronic kidney disease, with long-term current use of insulin ([facility]) URINALYSIS, COMPLETE, WITH REFLEX TO CULTURE Routine [...] Recently Relevant to Health Maintenance Results * Hepatitis B Surface Antibody, Qualitative (10/04/2024 2:44 PM EDT) Pathologist [facility] [place] ~Hepatitis B Surface Antibody NONREACTIVE Nonreactive [facility] Comment:Nonreactive: < 8.00 mIU/mL Blood Venous blood specimen / Unknown 10/04/2024 2:44 PM EDT 10/04/2024 4:01 PM EDT [facility] LAB BLOOD ORDERABLES Final Re sult Performing Organization Address [facility]/ZIP Co de Phone Number [facility] [address] [place] [phone] * Vitamin B12 (10/04/2024 2:44 PM EDT) [facility] Vitamin B12 278 200 - 900 pg/mL [facility] Comment:NORMAL 200-900 PG/ML INDETERMINATE 160-199 PG/ML DEFICIENT < 160 PG/ML Blood Venous blood specimen / Unknown 10/04/2024 2:44 PM EDT 10/04/2024 4:01 PM EDT [facility] LAB BLOOD ORDERABLES Final Re sult Performing Organization Address [facility]/ZIP Co de Phone Number [facility] [address] [place] [phone] * (ABNORMAL) Urinalysis, Complete, with Reflex to Culture (09/01/2024 11:17 PM EDT) Only the most recent of2 resultswithin the time period is included. Pathologist [facility] [place] Color Urine Yellow [facility] Appearance Urine Clear [facility] PH 6.0 5.0 - 9.0 [facility] Glucose Urine UA >=1000(A) Negative mg/dL [facility] Urine Blood Small (1+)(A) Negative [facility] Specific [place] - Urine >=1.030(H) 1.005 - 1.025 [facility] Urine Protein 30 (1+)(A) Neg-Trace mg/dL [facility] Urine Ketones Negative Negative mg/dL [facility] Nitrite Urine Negative Negative [facility] Leukocyte Esterase Urine Negative Negative [facility] RBC Urine 6-10(A) 0 - 2 /HPF [facility] Urine WBC 0-5 0 - 5 /HPF [facility] Urine Squamous Epithelial Cell 0-2 0 - 2 /HPF [facility] Urine Bacteria None Seen None Seen [facility] Hyaline Casts, Urine 0-2 0 - 2 /LPF [facility] 09/01/2024 11:1 7 PM EDT 09/01/2024 11:23 PM EDT Narrative [facility] - 09/01/2024 11:32 PM EDT Urine, Clean Catch us Generic External Data Provider LAB URINE ORDERAB LES Final Result [facility] [address] [place] [phone] * CT Abdomen Pelvis w/ Contrast (09/01/2024 9:53 PM EDT) Anatomical Region Laterality Modality Body, Pelvis, Abdomen Computed T omography 09/01/2024 9:53 PM EDT Narrative 09/01/2024 9:56 PM EDT ? [facility] ?[address] ?[place] [address] ? CT Scan Report ? Signed ? Patient: Brandt Nelson ?MR#: MM ?? [id number] ? : 1960 ?Acct:[id number] ? Age/Sex: 63 / M ?ADM Date: 04/03/25 ? Loc: HO.ED ? Attending Dr: ? Ordering Physician: Peter Urbina ?? Date of Service: 09/01/24 ?? Procedure(s): CT abdomen pelvis w IV con ?? Accession Number(s): [id number] ? cc: [facility]; Peter Urbina ? Report Number: ?? [id number]: Total DLP = ??768.00 mGy-cm ? CLINICAL [...] ? DD/ 52 ? TD/TT: 09/01/242152 ? Service Learning Coordinator: ? Procedure Note Darling, Image - 09/01/[address] [address] CT Scan Report Signed Patient: Brandt Nelson#: MM [id number] : 9Acct:[id number] Age/Sex: 63 / MADM Date: 09/01/24 Loc: HO.ED Attending Dr: Ordering Physician: Peter Urbina Date of Service: 09/01/24 Procedure(s): CT abdomen pelvis w IV con Accession Number(s): [id number] cc: [facility]; Peter Urbina Report Number: [id number]: Total DLP = 768.00 mGy-cm CLINICAL HISTORY: [...] in OV> 09/01/242154 DD/ 52 TD/TT: 09/01/242152 Service Learning Coordinator: us [facility] External Provider IMG CT PROCEDURES Final Result * (ABNORMAL) VENOUS BLOOD GAS (09/01/2024 4:00 PM EDT) VBG pH 7.35 7.32 - 7.43 [facility] Comment:METER #: [id number] additional_comment: Cb toucheg VBG PCO2 54 mmHg [facility] Comment:METER #: [id number] additional_comment: Cb toucheg VBG PO2 42 mmHg [facility] Comment:METER #: [id number] additional_comment: Cb toucheg VBG Base Excess 3.5 mmol/L [facility] Comment:METER #: [id number] additional_comment: Cb toucheg VBG HCO3 30(H) 22 - 26 mmol/L [facility] Comment:METER #: [id number] additional_comment: Cb toucheg O2 Sat, Braulio 68.0 % [facility] Comment:METER #: [id number] additional_comment: Cb toucheg 09/01/2024 4:00 PM EDT 09/01/2024 4:05 PM EDT Generic External Data Provider LAB BLOOD ORDERAB LES Final Result Performing Organization Address [facility]/ZIP Co de Phone Number [facility] [address] [place] [phone] * Beta-Hydroxybutyrate (09/01/2024 3:56 PM EDT) Beta-Hydroxybut yrate 0.27 0.02 - 0.27 mmol/L [facility] 09/01/2024 3:5 6 PM EDT 09/01/2024 3:58 PM EDT Generic External Data Provider LAB BLOOD ORDERAB LES Final Result Performing Organization Address City/[facility] Co de Phone Number [facility] [address] [place] [address] [phone] * (ABNORMAL) CBC auto differential (09/01/2024 3:56 PM EDT) Only the most recent of2 resultswithin the time period is included. White Blood Count 6.8 4.8 - 10.8 X10*3/uL [facility] Red Blood Count 4.46(L) 4.60 - 5.80 X10*6/uL [facility] Hemoglobin 12.8(L) 14.0 - 18.0 g/dl [facility] Hematocrit 38.2(L) 42.0 - 52.0 % [facility] Mean Corpuscular Volume 85.7 80.0 - 98.0 fL [facility] Mean Corpuscular Hemoglobin 28.7 27.0 - 33.0 pg [facility] Mean Corpuscular HGB Conc 33.5 31.0 - 36.0 g/dl [facility] Red Cell Distribution Width 14.5 11.0 - 16.0 % [facility] Platelet Count 245 160 - 400 X10*3/uL [facility] Mean Platelet Volume 10.3 9.4 - 12.4 fL [facility] Neutrophils Percent Auto 58.6 45 - 73 % [facility] Imm Gran Pct Auto 0.4 0.0 - 0.4 % [facility] Lymphocytes Percent Auto 24.9 20 - 40 % [facility] Monocytes Percent Auto 12.5(H) 2 - 11 % [facility] Eosinophils Percent Auto 2.7 0 - 4 % [facility] Basophils Percent Auto 0.9 0 - 2 % [facility] NRBC Pct Auto 0.0 0.0 - 0.2 /100WBC [facility] Neutrophils Absolute Auto 4.0 2.0 - 8.3 x10*3/uL [facility] Imm Gran Abs Auto 0.03 0.00 - 0.03 X10*3/uL [facility] Lymphocytes Absolute Auto 1.7 1.2 - 4.9 X10*3/uL [facility] Monocytes Absolute Auto 0.9 0.1 - 1.2 X10*3/uL [facility] Eosinophils Absolute Auto 0.2 0.0 - 0.4 X10*3/uL [facility] Basophils Absolute Auto 0.1 0.0 - 0.2 X10*3/uL [facility] NRBC Abs Auto 0.000 0.0 - 0.012 X10*3/uL [facility] 09/01/2024 3:56 PM EDT 09/01/2024 3:58 PM EDT Generic External Data Provider LAB BLOOD ORDERAB LES Final Result Performing Organization Address [facility] Co de Phone Number [facility] [address] [place] [phone] * Magnesium (09/01/2024 3:56 PM EDT) Magnesium 1.8 1.6 - 2.6 mg/dL [facility] 09/01/2024 3:56 PM EDT 09/01/2024 3:58 PM EDT Generic External Data Provider LAB BLOOD ORDERAB LES Final Result Performing Organization Address [facility] de Phone Number [facility] [address] [place] [phone] * (ABNORMAL) Lipase (09/01/2024 3:56 PM EDT) Only the most recent of2 resultswithin the time period is included. Lipase 143(H) 8 - 78 U/L [facility] 09/01/2024 3:56 PM EDT 09/01/2024 3:58 PM EDT Generic External Data Provider LAB BLOOD ORDERAB LES Final Result Performing Organization Address [facility] Co de Phone Number [facility] [address] [place] [phone] * (ABNORMAL) Comprehensive Metabolic Panel (09/01/2024 3:56 PM EDT) Sodium 142 135 - 145 mmol/L [facility] Potassium 4.9 3.3 - 5.1 mmol/L [facility] Chloride 108 96 - 108 mmol/L [facility] Carbon Dioxide 27 22 - 29 mmol/L [facility] Anion Gap 12 12 - 20 [facility] Urea Nitrogen (BUN) 29(H) 9 - 16 mg/dL [facility] Creatinine, Serum 1.48(H) 0.5 - 1.4 mg/dL [facility] Creatinine Clr Calc Pharmacy 60.5 [facility] Comment:eGFR (calculated fro m the MDRD study equation) and eCrCl(calculated from the Cockcroft-Gault equation) are based ondifferent parameters and may not yield comparable results.If eCrCl result is absurd, please check patient'sheight/weight. Estimated Glomerular Filt Rate 48 [facility] Comment:Chronic Kidney Disea se: Estimated GFR < 60 mL/min/1.14x4Gktyia Kidney Disease: Estimated GFR < 15 mL/min/1.73m2 Glucose 145(H) 60 - 115 mg/dL [facility] Calcium 9.7 8.4 - 10.2 mg/dL [facility] Bilirubin, Total 0.3 0.0 - 1.0 mg/dL [facility] Aspartate Amino Transferase 33 5 - 37 U/L [facility] Alanine Aminotransferase 44(H) 0 - 40 U/L [facility] Total Protein 8.1(H) 6.5 - 8.0 g/dL [facility] Albumin Level 4.1 3.5 - 5.0 g/dL [facility] Alkaline Phosphatase 63 39 - 117 U/L [facility] 09/01/2024 3:56 PM EDT 09/01/2024 3:58 PM EDT us Generic External Data Provider LAB BLOOD ORDERAB LES Final Result Performing Organization Address [facility]/ZIP Co de Phone Number [facility] [address] [place] [phone] * Amylase (08/31/2024 3:30 PM EDT) Amylase 85 28 - 100 U/L [facility] Blood Venous blood specimen / Unknown 08/31/2024 3:30 PM EDT 08/31/2024 6:01 PM EDT Melisa Jacob MD LAB BLOOD ORDERABLES Final Result Performing Organization Address [facility] Co de Phone Number [facility] [address] [place] [phone] * (ABNORMAL) Hepatic Function Panel (08/31/2024 3:30 PM EDT) Bilirubin, Total 0.3 0.0 - 1.0 mg/dL [facility] Bilirubin, Direct 0.1 0.0 - 0.5 mg/dL [facility] Aspartate Amino Transferase 32 5 - 37 U/L [facility] Alanine Aminotransferase 41(H) 0 - 40 U/L [facility] Total Protein 8.1(H) 6.5 - 8.0 g/dL [facility] Albumin Level 4.0 3.5 - 5.0 g/dL [facility] Alkaline Phosphatase 56 39 - 117 U/L [facility] Blood Venous blood specimen / Unknown 08/31/2024 3:30 PM EDT 08/31/2024 6:01 PM EDT Melisa Jacob MD LAB BLOOD ORDERABLES Final Result Performing Organization Address [facility] Co de Phone Number [facility] [address] [place] [phone] * XR KUB and Upright 2 Views (08/31/2024 3:24 PM EDT) Anatomical Region Laterality Modality Radiographic Cheryl ging 08/31/2024 3:24 PM EDT Narrative 08/31/2024 3:48 PM EDT ?[facility] ?[address] ?[place] [address] ?XRay Report ? Signed ? Patient: Cade Whaley,Brandt ?MR#: MM ?? [id number] ? : 1960 ?Acct:[id number] ? Age/Sex: 63 / M ?ADM Date: 08/31/24 ? Loc: HO.HHCX ? Attending Dr: Melisa Jacob MD ? Ordering Physician: Melisa Jacob MD ?? Date of Service: 08/31/24 ?? Procedure(s): XR KUB ?? Accession Number(s): [id number] ? cc: Melisa Jacob MD ? EXAMINATION: [...] DD/ 1524 ? TD/TT: 08/31/24 1530 ? Service Learning Coordinator: ? Procedure Note Darling, Image - 08/31/2024 [facility] [address] [place] [address] XRay Report Signed Patient: Brandt NelsonMR#: MM [id number] : 9Acct:[id number] Age/Sex: 63 / MADM Date: 08/31/24 Loc: HO.HHCX Attending Dr: Melisa Jacob MD Ordering Physician: Melisa Jacob MD Date of Service: 08/31/24 Procedure(s): XR KUB Accession Number(s): [id number] cc: Melisa Jacob MD EXAMINATION: XR ABDOMEN [...] 08/31/24 1545 DD/ 1524 TD/TT: 08/31/24 1530 Service Learning Coordinator: us Melisa Jacob MD IMG XR PROCEDURES Final Re sult * US KELLY COMPLETE (08/24/2024 4:45 PM EDT) Anatomical Region Laterality Modality Abdomen Ultrasound 08/24/2024 4:45 PM EDT Narrative 08/24/2024 4:46 PM EDT ? [facility] [facility] ?[address] ?[place] [address] ? Ultrasound Report ? Signed ? Patient: Cade Downey,Brandt ?MR#: MM ?? [id number] ? : 1960 ?Acct:[id number] ? Age/Sex: 63 / M ?ADM Date: 08/23/24 ? Loc: HO.US ? Attending Dr: Nieves Cabrera MD ? Ordering Physician: Nieves Cabrera MD ?? Date of Service: 08/23/24 ?? Procedure(s): US KELLY complete ?? Accession Number(s): [id number] ? cc: Nieves Cabrera MD; Tg Milner [facility] ? CLINICAL HISTORY: TOE PRESSURES, [...] 1646 ? DD/ ? TD/TT: 08/24/245 ? Service Learning Coordinator: ? Procedure Note Darling, Image - 08/24/[address] [address] Ultrasound Report Signed Patient: Brandt Nelson#: MM [id number] : 9Acct:[id number] Age/Sex: 63 / MADM Date: 08/23/24 Loc: HO.US Attending Dr: Nieves Cabrera MD Ordering Physician: Nieves Cabrera MD Date of Service: 08/23/24 Procedure(s): US KELLY complete Accession Number(s): [id number] cc: Nieves Cabrera MD; [facility] CLINICAL HISTORY: TOE PRESSURES, NON HEALING [...] Chamberlain MD in OV> 08/24/24 1646 DD/ 164 TD/TT: 08/24/241644 Service Learning Coordinator: [facility] External Provider IMG US PROCEDURES Final Result * (ABNORMAL) POCT HGB A1C (07/22/2024 10:04 AM EST) Hemoglobin A1C 8.2(A) 4.0 - 6.0 % QC Media Lot # [id number] Lot# Expiration Date Blood 07/22/2024 10:0 4 AM EST [facility] POINT OF CARE TEST ENTER/EDIT ORDERABLES Final Result * POCT Glucose (07/22/2024 10:04 AM EST) Glucose Blood, POC 145 60 - 200 mg/dL QC Media Lot # [id number] Lot# Expiration Date 025 Blood Capillary blood specimen / Unknown 07/22/2024 10:04 AM EST [facility] POINT OF CARE TEST ENTER/EDIT ORDERABLES Final Result * (ABNORMAL) Lipid Panel, Standard (01/22/2024 10:21 AM EDT) Triglycerides 291(H) <150 mg/dL [facility] Comment:Desirable Triglyceri de: less than 150 mg/dLBorderline High Triglyceride 150-199 mg/dLHigh Triglyceride: 200-499 mg/dLVery High Triglyceride: greater than or equal to 5OO mg/dL Cholesterol 166 <200 mg/dL [facility] Comment:Desirable Cholestero l: less than 200 mg/dLBorderline High Cholesterol: 200-239 mg/dLHigh Cholesterol: greater than 239 mg/dL LDL Cholesterol Calculated 77 <100 mg/dL [facility] Comment:Desirable LDL: less than 100 mg/dLNear Optimal/Above Optimal LDL: 110- 129 mg/dLBorderline High LDL: 130-159 mg/dLHigh LDL: 160-189 mg/dLVery High LDL: greater than or equal to 190 mg/dL HDL Cholesterol 31(L) >40 mg/dL [facility] Comment:Desirable HDL: great er than 40 mg/dL Note: This HDL assay may give artificially low results in patients with liver disease. Blood Venous blood specimen / Unknown 01/22/2024 10:21 AM EDT 01/22/2024 11:05 AM EDT [facility] LAB BLOOD ORDERABLES Final Re sult [facility] [address] [place] [phone] * Hepatitis C Antibody with Reflex to HCV, RNA, Quantitative, Real-Time PCR (09/01/2022 2:59 PM EDT) Hepatitis C Antibody NON-REACT DARY NON-REACT DARY [employer] [place] [employer] Index 0.09 <1.00 [facility] [employer] [place] [employer] Comment: HCV antibody was non-reactive. There is no laboratory evidence of HCV infection. In most cases, no further action is required. However, if recent HCV exposure is suspected, a test for HCV RNA (test code 08707) is suggested. For additional information please refer to http://education.fitmob/faq/MOD48q5 (This link is being provided for informational/ educational purposes only.) Blood Venous blood specimen / Unknown 09/01/2022 2:59 PM EDT 09/01/2022 2:59 PM EDT [facility] NATURAL RESOURCE TECHNICIAN LAB BLOOD ORDERABLES Final Re sult [facility] [address], [place] [phone] [facility] [address] [place] [phone] from Last 3 Months or Most Recently Relevant to Health Maintenance Insurance [facility] OPTIONS (O D-SNP) [place] [id number] Care Teams Cuff Stitcher Relationship Specialty Start Date End Date Tg Milner FNP [address] [place] [phone] PCP - General Family Medicine 04/28/22
--- OUTSIDE RECORDS SUMMARY | 2024-10-05 14:42 | XMS_ITS | Encounter Summary ---
Author Organization [employer] Address [address] [facility] 7t [place] [address] Care Team Providers Care Sanitation Worker Cleaning Equipment Name Role Phone Annia, [facility] Primary Care Provider [phone] Reason for Visit * Reason Comments Med Refill Encounter Details Date Type Department Care Team ([facility] st Contact Info) Description 08/31/2024 Refill [facility] [address] [place] [address] [facility] [address] [place] [address] Primary hypertension Social History Tobacco Use Types [...] 11:15 AM EDT Office Visit [facility] [address] [place] [address] Tg Milner FNP [address] [place] [address] documented as of this encounter Visit Diagnoses Diagnosis Primary hypertension Unspecified essential hypertension documented in this encounter Additional Health Concerns Assessment Noted Time PHQ-9 Depression Total Score: 0 07/22/19 25 10:03 AM EST documented as of this encounter Care Teams Sanitation Worker Cleaning Equipment Relationship Specialty Start Date End Date Tg Milner FNP [address] [place] [address] PCP - General Family Medicine 04/28/22 documented as of this encounter
--- OUTSIDE RECORDS SUMMARY | 2024-10-05 14:42 | XMS_ITS | Encounter Summary ---
Author Organization [facility] Address [address] [place] [address] Care Team Providers Care Court Liaison Name Role Phone Tg Milner [facility] Primary Care Provider [phone] Encounter Details Date Type Department Care Team (Late st Contact Info) Description 07/10/2022 Orders Only [facility] MEDICINE [address] [place] [address] Chante Mackey LPN Social History Tobacco Use [...] 10/19/2024 11:15 AM EDT Office Visit [facility] MEDICINE [address] [place] [address] Tg Milner [facility] 230 [place] [address] documented as of this encounter Visit Diagnoses Not on filedocumented in this encounter Care Teams Court Liaison Relationship Specialty Start Date End Date Tg Milner FNP [address] [place] [address] PCP - General Family Medicine 04/28/22 documented as of this encounter
--- OUTSIDE RECORDS SUMMARY | 2024-10-05 14:42 | XMS_ITS | Encounter Summary ---
Author Organization [employer] Address [address] [facility] [address] [place] [address] Care Team Providers Care Chemistry Technical Officer Name Role Phone Tg Milner [facility] Primary Care Provider [phone] Reason for Visit * Reason Onset Date Comments Medication Question 05/06/2022 new script 05/06/2022 Encounter Details Date Type Department Care Team ([facility] st Contact Info) Description 05/06/2022 Telephone [facility] MEDICINE [address] [place] [address] [place] [facility] [address] [place] [address] Medication Question; new script Social History Tobacco [...] Trulicity .75, 1.5 or 3mg. PCP ESTELLA [place] * Telephone Encounter - Nany Gann - 05/06/2022 2:08 PM EST Tc from pt requesting active medications. Pt will be traveling to [place] as of May 19nd unsure on the exact date that will be returning. Stated will be returning after the new years but has yet to establish a date. PCP ESTELLA [place] documented in this encounter Plan of Treatment Upcoming Encounters Date Type Department Care Team (Late st Contact Info) Description 10/19/2024 11:15 AM EDT Office Visit [facility] MEDICINE [address] [place] [address] Tg Milner FNP [address] [place] [address] documented as of this encounter Visit Diagnoses Diagnosis Type 2 diabetes mellitus without complication, without long-term current use of insulin ([facility] documented in this encounter Care Teams Chemistry Technical Officer Relationship Specialty Start Date End Date Tg Milner FNP [address] [place] [address] PCP - General Family Medicine 04/28/22 documented as of this encounter
--- OUTSIDE RECORDS SUMMARY | 2024-10-05 14:43 | XMS_ITS | Encounter Summary ---
Author Organization [employer] Address [address] [facility] [address] [place] [address] Care Team Providers Care Digital Forensic Analyst Name Role Phone Tg Milner [employer] Primary Care Provider [phone] Reason for Visit * Reason Comments Med Refill Encounter Details Date Type Department Care Team ([facility] st Contact Info) Description 10/04/2024 Refill [facility] [address] [place] [address] Melisa Jacob MD [address] [place] [address] Pain in right lumbar region of back; [...] Description 10/19/2024 11:15 AM EDT Office Visit [facility] MED[facility]INE [address] [place] [address] Tg Milner FNP [address] [place] [address] documented as of this encounter Visit Diagnoses Diagnosis Pain in right lumbar region of back Right flank pain Abdominal pain, unspecified site documented in this encounter Additional Health Concerns Assessment Noted Time PHQ-9 Depression Total Score: 0 07/22/19 25 10:03 AM EST documented as of this encounter Care Teams Digital Forensic Analyst Relationship Specialty Start Date End Date Tg Milner FNP [address] [place] [address] PCP - General Family Medicine 04/28/22 documented as of this encounter
== END 2024-10-05 14:31 | disposition home or self-care (01) ==
LOC: HO.HKAM 13:28
PROVIDERS: Visit Provider Internal Medicine Hypertension Specialist
DX: I12.9 Hypertensive chronic kidney disease with stage 1 through stage 4 chronic kidney disease, or unspecified chronic kidney disease (principal); N18.9 Chronic kidney disease, unspecified; E11.22 Type 2 diabetes mellitus with diabetic chronic kidney disease
CPT/HCPCS: 99214

== ENCOUNTER → 2024-10-05 13:28 | Outpatient (BNVA) | payer OTHER, SELFPAY | PROVIDERS: Visit Provider Internal Medicine Hypertension Specialist ==

== ENCOUNTER 2024-10-05 14:14 | Outpatient (REF) | payer OTHER, SELFPAY ==
--- OUTSIDE RECORDS SUMMARY | 2024-10-05 15:26 | XMS_ITS | Encounter Summary ---
Author Organization [facility] Address [address] [place] [address] Care Team Providers Care Social Work Case Manager Name Role Phone Tg Milner [facility] Primary Care Provider [phone] Reason for Visit * Reason Comments Med Refill Encounter Details Date Type Department Care Team (Late st Contact Info) Description 06/18/2022 Refill [facility] MEDICINE [address] [place] [address] Tg Milner [facility] [address] [place] [address] Type 2 diabetes mellitus without complication, without [...] Description 10/19/2024 11:15 AM EDT Office Visit [facility] MEDICINE [address] [place] [address] Tg Milner FNP [address] [place] [address] documented as of this encounter Visit Diagnoses Diagnosis Type 2 diabetes mellitus without complication, without long-term current use of insulin (CMS/HCC) documented in this encounter Care Teams Social Work Case Manager Relationship Specialty Start Date End Date Tg Milner FNP [address] [place] [address] PCP - General Family Medicine 04/28/22 documented as of this encounter
--- OUTSIDE RECORDS SUMMARY | 2024-10-05 15:26 | XMS_ITS | Encounter Summary ---
Author Organization [employer] Address [address] [facility] [address] [place] [address] Care Team Providers Care Certified Maintenance Welder Name Role Phone Tg Milner [facility] Primary Care Provider [phone] Reason for Visit * Reason Onset Date Comments Medication Question 05/06/2022 new script 05/06/2022 Encounter Details Date Type Department Care Team ([facility] st Contact Info) Description 05/06/2022 Telephone [facility] MEDICINE [address] [place] [address] [place] [facility] [address] [place] [address] Medication Question; new script Social History Tobacco [...] Trulicity .75, 1.5 or 3mg. PCP ESTELLA [place] * Telephone Encounter - Nany Gann - 05/06/2022 2:08 PM EST Tc from pt requesting active medications. Pt will be traveling to [place] as of May 19nd unsure on the exact date that will be returning. Stated will be returning after the new years but has yet to establish a date. PCP ESTELLA [place] documented in this encounter Plan of Treatment Upcoming Encounters Date Type Department Care Team (Late st Contact Info) Description 10/19/2024 11:15 AM EDT Office Visit [facility] MEDICINE [address] [place] [address] Tg Milner FNP [address] [place] [address] documented as of this encounter Visit Diagnoses Diagnosis Type 2 diabetes mellitus without complication, without long-term current use of insulin ([facility]) documented in this encounter Care Teams Certified Maintenance Welder Relationship Specialty Start Date End Date Tg Milner FNP [address] [place] [address] PCP - General Family Medicine 04/28/22 documented as of this encounter
--- OUTSIDE RECORDS SUMMARY | 2024-10-05 15:26 | XMS_ITS | Clinical Summary ---
Author Organization [facility] Address [address] [place] [address] Phone Care Team Providers Care Activities Volunteer Name Role Phone [facility] Primary Care Provider [phone] Allergies No known active allergies Medications acetaminophen [...] EDT - 09/13/2024 6:03 AM EDT Emergency [facility] Emergency [address] [place] [address] Paloma Perry MD Hemorrhagic cystitis (Primary Dx); [...] microscopic and culture (09/13/2024 2:32 AM EDT) [facility] Specific [place] Urine 1.020 1.003 - 1.030 LAB URINALYSIS [...] - AUTOMATED METHOD 09/13/2024 3:25 AM EDT [facility] Ketones, Urine Negative Negative mg/dL [...] MD LAB URINE ORDERABLES Fin al Result [facility] [address] [place] [address], * [place] urine culture tube (09/13/2024 2:32 AM EDT) Extra Tube Hold for add-ons. 09/13/2024 5:01 AM EDT [facility] Comment:Auto resulted. Urine Indwelling urinary catheter / Unknown Non-blood Collection / Unknown 09/13/2024 2:32 AM EDT 09/13/2024 3:03 AM EDT us Paloma Perry MD LAB URINE ORDERABLES Fin al Result [facility] [address] [place] [address], * (ABNORMAL) Culture urine (09/13/2024 2:32 AM EDT) Pathologist [facility] Culture, Urine >100,000 CFU/mL Proteus mirabilis(A) JEZ 09/16/2024 8:51 AM EDT [facility] Comment: Edited result: Previously reported as Proteus species on 09/14/2024 at 1010 EDT. Culture, Urine 10,000-49,000 CFU/mL Klebsiella pneumoniae ssp pneumoniae(A) JEZ 09/16/2024 8:51 AM EDT [facility] Comment: The organism value for [...] MICROBIOLOGY - GENER AL ORDERABLES Final Result [facility] [address] [place] [address], [place] [phone] * Respiratory virus panel molecular study (09/13/2024 1:36 AM EDT) [facility] Adenovirus Detection by PCR Not Detected Not Detected LAB MICROBIOLOGY METHOD 09/13/2024 2:48 AM EDT [facility] Influenza A PCR Not Detected Not Detected LAB MICROBIOLOGY METHOD 09/13/2024 2:48 AM EDT [facility] Influenza B PCR Not Detected Not Detected LAB MICROBIOLOGY METHOD 09/13/2024 2:48 AM EDT [facility] Coronavirus 229E Not Detected Not Detected LAB MICROBIOLOGY METHOD 09/13/2024 2:48 AM EDT [facility] Coronavirus HKU1 Not Detected Not Detected LAB MICROBIOLOGY METHOD 09/13/2024 2:48 AM EDT [facility] Coronavirus OC43 Not Detected Not Detected LAB MICROBIOLOGY METHOD 09/13/2024 2:48 AM EDT [facility] Coronavirus NL63 Not Detected Not Detected LAB MICROBIOLOGY METHOD 09/13/2024 2:48 AM EDT [facility] Parainfluenza Virus 1 Not Detected Not Detected LAB MICROBIOLOGY METHOD 09/13/2024 2:48 AM EDT [facility] Parainfluenza Virus 2 Not Detected Not Detected LAB MICROBIOLOGY METHOD 09/13/2024 2:48 AM EDT [facility] Parainfluenza Virus 3 Not Detected Not Detected LAB MICROBIOLOGY METHOD 09/13/2024 2:48 AM EDT [facility] Parainfluenza Virus 4 Not Detected Not Detected LAB MICROBIOLOGY METHOD 09/13/2024 2:48 AM EDT [facility] RSV PCR Not Detected Not Detected LAB MICROBIOLOGY METHOD 09/13/2024 2:48 AM EDT [facility] Human Metapneumovirus A and B Not Detected Not Detected LAB MICROBIOLOGY METHOD 09/13/2024 2:48 AM EDT [facility] Rhinovirus/Entero virus Not Detected Not Detected LAB MICROBIOLOGY METHOD 09/13/2024 2:48 AM EDT [facility] Bordetella pertussis Not Detected Not Detected LAB MICROBIOLOGY METHOD 09/13/2024 2:48 AM EDT [facility] Bordetella parapertussis Not Detected Not Detected LAB MICROBIOLOGY METHOD 09/13/2024 2:48 AM EDT [facility] Mycoplasma pneumo by PCR Not Detected Not Detected LAB MICROBIOLOGY METHOD 09/13/2024 2:48 AM EDT [facility] Chlamydia pneumoniae Not Detected Not Detected LAB MICROBIOLOGY METHOD 09/13/2024 2:48 AM EDT [facility] SARS COV-2 Not Detected Not Detected LAB MICROBIOLOGY METHOD 09/13/2024 2:48 AM EDT [facility] Swab Both anterior nares / Unknown Non-blood Collection / Unknown 09/13/2024 1:36 AM EDT 09/13/2024 1:50 AM EDT Narrative [facility] - 09/13/2024 2:48 AM EDT Testing was performed using the Everwise Respiratory Pathogen PCR Assay. All results must [...] detection. Paloma Perry MD LAB MICROBIOLOGY - [facility] AL ORDERABLES Final Result [facility] [address] [place] [address], * ECG-Annotated (09/13/2024) us Provider Onbase ECG ORDERABLES Final Result * (ABNORMAL) CBC auto differential (09/12/2024 7:05 PM EDT) [facility] WBC 6.0 4.8 - 10.8 K/mcL LAB [...] % LAB HEMETOLOGY [facility] Lymphocytes Relative 26.1 % [...] ORDERABLES Fin al Result Performing Organization Address [facility]/ZIP Co de Phone Number [facility] [address] [place] [address], [place] [phone] * Magnesium (09/12/2024 7:05 PM EDT) Pathologist [facility] Magnesium 1.9 1.9 - 2.6 mg/dL LAB CHEMISTRY METHOD 09/12/2024 8:05 PM EDT [facility] Blood Venous blood specimen / Unknown Venipuncture / Unknown 09/12/2024 7:05 PM EDT 09/12/2024 7:34 PM EDT Paloma Perry MD LAB BLOOD ORDERABLES Fin al Result Performing Organization Address [facility]/ZIP Co de Phone Number [facility] [address] [place] [address], [place] [phone] * (ABNORMAL) Basic metabolic panel (09/12/2024 7:05 PM EDT) [facility] Sodium 132(L) 133 - 145 mmol/L LAB CHEMISTRY METHOD 09/12/2024 8:05 PM EDT [facility] Potassium 4.3 3.5 - 5.5 mmol/L LAB CHEMISTRY METHOD 09/12/2024 8:05 PM EDT [facility] Chloride 100 96 - 110 mmol/L LAB CHEMISTRY METHOD 09/12/2024 8:05 PM EDT [facility] CO2 25 21 - 32 mmol/L LAB CHEMISTRY METHOD 09/12/2024 8:05 PM EDT [facility] Anion Gap 7 3 - 11 LAB CHEMISTRY METHOD 09/12/2024 8:05 PM EDT [facility] Glucose 216(H) 70 - 100 mg/dL LAB CHEMISTRY METHOD 09/12/2024 8:05 PM EDT [facility] BUN 31(H) 5 - 25 mg/dL LAB CHEMISTRY METHOD 09/12/2024 8:05 PM T [facility] Creatinine 1.87(H) 0.70 - 1.30 mg/dL LAB CHEMISTRY METHOD 09/12/2024 8:05 PM EDT [facility] eGFR 39(L) >=60 mL/min/1. 73m2 LAB CHEMISTRY METHOD 09/12/2024 8:05 PM EDT [facility] Comment:Calculation based on the??Chronic Kidney Disease Epidemiology Collaboration (CKD-EPI) equation refit??without adjustment for race. BUN/Creatinine Ratio 16.6 LAB CHEMISTRY METHOD 09/12/2024 8:05 PM EDT [facility] Calcium 9.7 8.5 - 10.5 mg/dL LAB CHEMISTRY METHOD 09/12/2024 8:05 PM EDT [facility] Blood Venous blood specimen / Unknown Venipuncture / Unknown 09/12/2024 7:05 PM EDT 09/12/2024 7:34 PM EDT us Paloma Perry MD LAB BLOOD ORDERABLES Fin al Result [facility] [address] [place] [address], * ECG 12 lead (09/12/2024 7:03 PM EDT) Ventricular Rate ECG 111 BPM G[facility] Atrial Rate 111 BPM [facility] P-R Interval 194 ms GEM[facility] QRS Duration 118 ms GEM[facility] Q-T Interval 342 ms GEMUSE QTc 465 ms GEMUSE P Wave [place] 61 degrees GEMUSE R [place] -71 degrees GEMUSE T [place] 36 degrees GEMUSE ECG Interpretation Sinus tachycardia Right bundle branch block Left anterior fascicular block Bifascicular block Abnormal ECG No previous ECGs available Confirmed by Arnav GARCIA YUFENG ([id number]) on 09/12/2024 7:11:46 PM GEMUSE 09/12/2024 7:03 PM EDT 09/12/2024 7:11 PM EDT us Paloma Perry MD ECG ORDERABLES Final Re sult GEMUSE from Last 3 Months Insurance [facility] [employer] Member Subscriber Plan / Payer (Ef fective 2024-Present) Name:Brandt Nelson Relation to Subscriber:Self Name:Brandt Nelson Payer ID:[id number] Group ID:Not on file Type:Not on file Address: [place] [facility] [place] [address] Care Teams Activities Volunteer Relationship Specialty Start Date End Date [facility] [address] [phone] PCP - General 01/05/24
--- OUTSIDE RECORDS SUMMARY | 2024-10-05 15:26 | XMS_ITS | Encounter Summary ---
Author Organization [facility] Address [address] [place] [address] Care Team Providers Care Oil Dispenser Name Role Phone gT Milner [facility] Primary Care Provider [phone] Encounter Details Date Type Department Care Team (Late st Contact Info) Description 07/10/2022 Orders Only [facility] MEDICINE [address] [place] [address] Chante Mackey LPN Social History Tobacco Use [...] 10/19/2024 11:15 AM EDT Office Visit [facility] MEDICINE [address] [place] [address] Tg Milner [facility] [address] [place] [address] documented as of this encounter Visit Diagnoses Not on filedocumented in this encounter Care Teams Oil Dispenser Relationship Specialty Start Date End Date Tg Milner FNP [address] [place] [address] PCP - General Family Medicine 04/28/22 documented as of this encounter
--- OUTSIDE RECORDS SUMMARY | 2024-10-05 15:26 | XMS_ITS | Encounter Summary ---
Author Organization [facility] Address [address] [place] [address], [place] [address] Care Team Providers Care Aircraft Launch And Recovery Technician Name Role Phone Annia, [facility] Primary Care Provider [phone] Encounter Details Date Type Department Care Team (Late st Contact Info) Description 06/03/2022 Telephone [facility] MEDICINE [address] [place] [address] [place] [facility] [address] [place] [address] Social History Tobacco Use Types Packs/Day Years [...] 11:15 AM EDT Office Visit [facility] MEDICINE [address] [place] [address] [facility] [address] [place] [address] documented as of this encounter Visit Diagnoses Not on filedocumented in this encounter Care Teams Aircraft Launch And Recovery Technician Relationship Specialty Start Date End Date Tg Milner [facility] [address] [place] [address] PCP - General Family Medicine 04/28/22 documented as of this encounter
--- OUTSIDE RECORDS SUMMARY | 2024-10-05 15:26 | XMS_ITS | Clinical Summary ---
Author Organization [employer] Address [address] [place] [address] 7[address] [place] [address] Care Team Providers Care Contact Center Consultant Name Role Phone Tg Milner [facility] Primary Care Provider [phone] Allergies No known active allergies Medications cyclobenzaprine [...] polyneuropathy associated with type 2 diabetes mellitus ([facility]) TEST BLOOD SUGAR ONCE DAILY IN THE [...] complication, without long-term current use of insulin ([facility]) Inject 4.5 mg under the skin 1 (one) time per week. 4 each Active Jardiance 25 MGIndications:Typ e 2 diabetes mellitus without complication, without long-term current use of insulin ([facility]) TAKE 1 TABLET BY MOUTH EVERY MORNING [...] complication, without long-term current use of insulin ([facility]) TAKE 2 TABLETS BY MOUTH TWICE DAILY [...] unspecified whether stage 3a or 3b CKD ([facility]) Inject 6 Units under the skin at bedtime. 3 mL 025 2025 Active insulin pen needle 32G x 4 mm miscIndications:T ype 2 diabetes mellitus with stage 3 chronic kidney disease, with long-term current use of insulin, unspecified whether stage 3a or 3b CKD ([facility]) Use as instructed 100 each 025 2025 Active Continuous Glucose Sensor (FreeStyle May 2 Sensor) miscIndications:T ype 2 diabetes mellitus with stage 3 chronic kidney disease, with long-term current use of insulin, unspecified whether stage 3a or 3b CKD ([facility]) Use as directed 2 each 3 025 Active Continuous Glucose Supervisor Photoengraving (FreeStyle May 2 [place]) deviceIndications :Type 2 diabetes mellitus with stage 3 chronic kidney disease, with long-term current use of insulin, unspecified whether stage 3a or 3b CKD ([facility]) Use as directed 1 each 025 Active [...] today AAA screening: Ordered 12/2023 Vision Exam: [facility]; UTD Dental Care: Overdue. Pt with [...] insufficiency 06/14/2018 Overview (11/26/2022): ?? [place] [facility] [place] Compression stockings ?? Pain managed with gabapeentin 800mg t.i.d ?? Followed [place] [facility] [place] care for venous stasis ulcer Assessment [...] Foot Exam: 07/2023--RISK 1 Eye Exam: Through [facility]. UTD Statin: Yes ASA: Yes GISELA/ARB: [...] Type Department Care Team Description 10/04/2024 Refill [facility] WALK-IN [address] [address] Melisa Jacob MD Pain in right lumbar region of back; Right flank pain 10/03/2024 Refill [facility] MED & PEDS [address] [place] [address] Walker Tg [facility] 09/15/2024 10:00 AM EDT Clinical Support [address] [address] Heidi Silva, RN Type 2 diabetes mellitus with stage 3b chronic kidney disease, with long-term current use of insulin ([facility]); Healthcare maintenance 09/15/[address] [address] Heidi Silva, RN CGM Appt 09/15/2024 Travel 09/01/2024 Orders Only GENERIC EXTERNAL DATA DEPARTMENT Provider, Generic External Data 09/01/[address] [address] Nicole Kaur RN Results 08/31/2024 3:00 PM EDT Office Visit [facility] WALK-IN [address] [address] Melisa Jacob MD Pain in right lumbar region of back (Primary Dx); Right flank pain; Calcaneal bursitis (heel), right; Class 1 obesity due to excess calories with serious comorbidity and body mass index (BMI) of 34.0 to 34.9 in adult; Dietary counseling; Exercise counseling 08/31/[address] [address] Melisa Jacob MD 08/31/[address] [address] Walker [facility] Primary hypertension 08/23/2024 Orders Only [facility] External Provider, [facility] 08/16/2024 1:00 PM EDT Clinical Support [address] [address] Heidi Silva RN Type 2 diabetes mellitus with other circulatory complication, without long-term current use of insulin ([facility]) 08/16/2024 Travel 08/04/2024 Refill [facility] [address] [place], [place] [phone] [facility] Primary osteoarthritis of right knee 07/25/[address] [address] [facility] CGM PA 07/22/2024 10:15 AM EST Office Visit [address] [address] Walker [facility] Type 2 diabetes mellitus with stage 3 chronic kidney disease, with long-term current use of insulin, unspecified whether stage 3a or 3b CKD ([facility]) (Primary Dx); Essential hypertension; Dietary counseling; Exercise counseling; Class 1 obesity due to excess calories with serious comorbidity and body mass index (BMI) of 34.0 to 34.9 in adult 07/22/2024 Travel 07/21/[address] [address] Walker [facility] chart prep from Last 3 Months [...] 10/19/2024 11:15 AM EDT Office Visit [facility] MEDICINE [address] [place], [place] [phone] Walker Tg, CORE FINISHER [address] [place], [place] [phone] Health Maintenance Due Date Last Done Comments [...] disease, with long-term current use of insulin ([facility]) URINALYSIS, COMPLETE, WITH REFLEX TO CULTURE Routine [...] [place] ~Hepatitis B Surface Antibody NONREACTIVE Nonreactive [facility] Comment:Nonreactive: < 8.00 mIU/mL Blood Venous blood specimen / Unknown 10/04/2024 2:44 PM EDT 10/04/2024 4:01 PM EDT [facility] LAB BLOOD ORDERABLES Final Re sult Performing Organization Address [facility]/ZIP Co de Phone Number [facility] [address] [place] [phone] * Vitamin B12 (10/04/2024 2:44 PM EDT) [facility] Vitamin B12 278 200 - 900 pg/mL [facility] Comment:NORMAL 200-900 PG/ML INDETERMINATE 160-199 PG/ML DEFICIENT < 160 PG/ML Blood Venous blood specimen / Unknown 10/04/2024 2:44 PM EDT 10/04/2024 4:01 PM EDT [facility] LAB BLOOD ORDERABLES Final Re sult Performing Organization Address [facility]/ZIP Co de Phone Number [facility] [address] [place] [phone] * (ABNORMAL) Urinalysis, Complete, with Reflex to Culture (09/01/2024 11:17 PM EDT) Only the most recent of2 resultswithin the time period is included. Pathologist [facility] [place] Color Urine Yellow [facility] Appearance Urine Clear [facility] PH 6.0 5.0 - 9.0 [facility] Glucose Urine UA >=1000(A) Negative mg/dL [facility] Urine Blood Small (1+)(A) Negative [facility] Specific [place] - Urine >=1.030(H) 1.005 - 1.025 [facility] Urine Protein 30 (1+)(A) Neg-Trace mg/dL [facility] Urine Ketones Negative Negative mg/dL [facility] Nitrite Urine Negative Negative [facility] Leukocyte Esterase Urine Negative Negative [facility] RBC Urine 6-10(A) 0 - 2 /HPF [facility] Urine WBC 0-5 0 - 5 /HPF [facility] Urine Squamous Epithelial Cell 0-2 0 - 2 /HPF [facility] Urine Bacteria None Seen None Seen [facility] Hyaline Casts, Urine 0-2 0 - 2 /LPF [facility] 09/01/2024 11:1 7 PM EDT 09/01/2024 11:23 PM EDT Narrative [facility] - 09/01/2024 11:32 PM EDT Urine, Clean Catch us Generic External Data Provider LAB URINE ORDERAB LES Final Result [facility] [address] [place] [address] [phone] * CT Abdomen Pelvis w/ Contrast (09/01/2024 9:53 PM EDT) Anatomical Region Laterality Modality Body, Pelvis, Abdomen Computed T omography 09/01/2024 9:53 PM EDT Narrative 09/01/2024 9:56 PM EDT ? [facility] ?[address] ?[place] [address] ? CT Scan Report ? Signed ? Patient: Brandt Nelson ?MR#: MM ?? [id number] ? : 1960 ?Acct:[id number] ? Age/Sex: 63 / M ?ADM Date: 04/03/25 ? Loc: HO.ED ? Attending Dr: ? Ordering Physician: Peter Urbina ?? Date of Service: 09/01/24 ?? Procedure(s): CT abdomen pelvis w IV con ?? Accession Number(s): [id number] ? cc: [facility]; ePter Urbina ? Report Number: ?? [id number]: Total DLP = ??768.00 mGy-cm ? CLINICAL [...] ? DD/ 52 ? TD/TT: 09/01/242152 ? Line Patroller: ? Procedure Note Darling, Image - 09/01/[address] [address] [address] Scan Report Signed Patient: Brandt Nelson#: MM [id number] : 9Acct:[id number] Age/Sex: 63 / MADM Date: 09/01/24 Loc: HO.ED Attending Dr: Ordering Physician: Peter Urbina Date of Service: 09/01/24 Procedure(s): CT abdomen pelvis w IV con Accession Number(s): [id number] cc: [facility]; Peter Urbina Report Number: [id number]: Total DLP = 768.00 mGy-cm CLINICAL HISTORY: [...] in OV> 09/01/242154 DD/ 52 TD/TT: 09/01/242152 Line Patroller: us [facility] External Provider IMG CT PROCEDURES Final Result * (ABNORMAL) VENOUS BLOOD GAS (09/01/2024 4:00 PM EDT) VBG pH 7.35 7.32 - 7.43 [facility] Comment:METER #: [id number] additional_comment: Cb toucheg VBG PCO2 54 mmHg [facility] Comment:METER #: [id number] additional_comment: Cb toucheg VBG PO2 42 mmHg [facility] Comment:METER #: [id number] additional_comment: Cb toucheg VBG Base Excess 3.5 mmol/L [facility] Comment:METER #: [id number] additional_comment: Cb toucheg VBG HCO3 30(H) 22 - 26 mmol/L [facility] Comment:METER #: [id number] additional_comment: Cb toucheg O2 Sat, Braulio 68.0 % [facility] Comment:METER #: [id number] additional_comment: Cb toucheg 09/01/2024 4:00 PM EDT 09/01/2024 4:05 PM EDT Generic External Data Provider LAB BLOOD ORDERAB LES Final Result Performing Organization Address [facility]/ZIP Co de Phone Number [facility] [address] [place] [phone] * Beta-Hydroxybutyrate (09/01/2024 3:56 PM EDT) Beta-Hydroxybut yrate 0.27 0.02 - 0.27 mmol/L [facility] 09/01/2024 3:5 6 PM EDT 09/01/2024 3:58 PM EDT Generic External Data Provider LAB BLOOD ORDERAB LES Final Result Performing Organization Address City/[facility] Co de Phone Number [facility] [address] [place] [address] [phone] * (ABNORMAL) CBC auto differential (09/01/2024 3:56 PM EDT) Only the most recent of2 resultswithin the time period is included. White Blood Count 6.8 4.8 - 10.8 X10*3/uL [facility] Red Blood Count 4.46(L) 4.60 - 5.80 X10*6/uL [facility] Hemoglobin 12.8(L) 14.0 - 18.0 g/dl [facility] Hematocrit 38.2(L) 42.0 - 52.0 % [facility] Mean Corpuscular Volume 85.7 80.0 - 98.0 fL [facility] Mean Corpuscular Hemoglobin 28.7 27.0 - 33.0 pg [facility] Mean Corpuscular HGB Conc 33.5 31.0 - 36.0 g/dl [facility] Red Cell Distribution Width 14.5 11.0 - 16.0 % [facility] Platelet Count 245 160 - 400 X10*3/uL [facility] Mean Platelet Volume 10.3 9.4 - 12.4 fL [facility] Neutrophils Percent Auto 58.6 45 - 73 % [facility] Imm Gran Pct Auto 0.4 0.0 - 0.4 % [facility] Lymphocytes Percent Auto 24.9 20 - 40 % [facility] Monocytes Percent Auto 12.5(H) 2 - 11 % [facility] Eosinophils Percent Auto 2.7 0 - 4 % [facility] Basophils Percent Auto 0.9 0 - 2 % [facility] NRBC Pct Auto 0.0 0.0 - 0.2 /100WBC [facility] Neutrophils Absolute Auto 4.0 2.0 - 8.3 x10*3/uL [facility] Imm Gran Abs Auto 0.03 0.00 - 0.03 X10*3/uL [facility] Lymphocytes Absolute Auto 1.7 1.2 - 4.9 X10*3/uL [facility] Monocytes Absolute Auto 0.9 0.1 - 1.2 X10*3/uL [facility] Eosinophils Absolute Auto 0.2 0.0 - 0.4 X10*3/uL [facility] Basophils Absolute Auto 0.1 0.0 - 0.2 X10*3/uL [facility] NRBC Abs Auto 0.000 0.0 - 0.012 X10*3/uL [facility] 09/01/2024 3:56 PM EDT 09/01/2024 3:58 PM EDT Generic External Data Provider LAB BLOOD ORDERAB LES Final Result Performing Organization Address [facility] Co de Phone Number [facility] [address] [place] [phone] * Magnesium (09/01/2024 3:56 PM EDT) Magnesium 1.8 1.6 - 2.6 mg/dL [facility] 09/01/2024 3:56 PM EDT 09/01/2024 3:58 PM EDT Generic External Data Provider LAB BLOOD ORDERAB LES Final Result Performing Organization Address [facility] de Phone Number [facility] [address] [place] [phone] * (ABNORMAL) Lipase (09/01/2024 3:56 PM EDT) Only the most recent of2 resultswithin the time period is included. Lipase 143(H) 8 - 78 U/L [facility] 09/01/2024 3:56 PM EDT 09/01/2024 3:58 PM EDT Generic External Data Provider LAB BLOOD ORDERAB LES Final Result Performing Organization Address [facility] Co de Phone Number [facility] [address] [place] [phone] * (ABNORMAL) Comprehensive Metabolic Panel (09/01/2024 3:56 PM EDT) Sodium 142 135 - 145 mmol/L [facility] Potassium 4.9 3.3 - 5.1 mmol/L [facility] Chloride 108 96 - 108 mmol/L [facility] Carbon Dioxide 27 22 - 29 mmol/L [facility] Anion Gap 12 12 - 20 [facility] Urea Nitrogen (BUN) 29(H) 9 - 16 mg/dL [facility] Creatinine, Serum 1.48(H) 0.5 - 1.4 mg/dL [facility] Creatinine Clr Calc Pharmacy 60.5 [facility] Comment:eGFR (calculated fro m the MDRD study equation) and eCrCl(calculated from the Cockcroft-Gault equation) are based ondifferent parameters and may not yield comparable results.If eCrCl result is absurd, please check patient'sheight/weight. Estimated Glomerular Filt Rate 48 [facility] Comment:Chronic Kidney Disea se: Estimated GFR < 60 mL/min/1.24i4Qsnref Kidney Disease: Estimated GFR < 15 mL/min/1.73m2 Glucose 145(H) 60 - 115 mg/dL [facility] Calcium 9.7 8.4 - 10.2 mg/dL [facility] Bilirubin, Total 0.3 0.0 - 1.0 mg/dL [facility] Aspartate Amino Transferase 33 5 - 37 U/L [facility] Alanine Aminotransferase 44(H) 0 - 40 U/L [facility] Total Protein 8.1(H) 6.5 - 8.0 g/dL [facility] Albumin Level 4.1 3.5 - 5.0 g/dL [facility] Alkaline Phosphatase 63 39 - 117 U/L [facility] 09/01/2024 3:56 PM EDT 09/01/2024 3:58 PM EDT us Generic External Data Provider LAB BLOOD ORDERAB LES Final Result Performing Organization Address [facility]/ZIP Co de Phone Number [facility] [address] [place] [phone] * Amylase (08/31/2024 3:30 PM EDT) Amylase 85 28 - 100 U/L [facility] Blood Venous blood specimen / Unknown 08/31/2024 3:30 PM EDT 08/31/2024 6:01 PM EDT Melisa Jacob MD LAB BLOOD ORDERABLES Final Result Performing Organization Address [facility] Co de Phone Number [facility] [address] [place] [phone] * (ABNORMAL) Hepatic Function Panel (08/31/2024 3:30 PM EDT) Bilirubin, Total 0.3 0.0 - 1.0 mg/dL [facility] Bilirubin, Direct 0.1 0.0 - 0.5 mg/dL [facility] Aspartate Amino Transferase 32 5 - 37 U/L [facility] Alanine Aminotransferase 41(H) 0 - 40 U/L [facility] Total Protein 8.1(H) 6.5 - 8.0 g/dL [facility] Albumin Level 4.0 3.5 - 5.0 g/dL [facility] Alkaline Phosphatase 56 39 - 117 U/L [facility] Blood Venous blood specimen / Unknown 08/31/2024 3:30 PM EDT 08/31/2024 6:01 PM EDT Melisa Jacob MD LAB BLOOD ORDERABLES Final Result Performing Organization Address [facility] Co de Phone Number [facility] [address] [place] [phone] * XR KUB and Upright 2 Views (08/31/2024 3:24 PM EDT) Anatomical Region Laterality Modality Radiographic Cheryl ging 08/31/2024 3:24 PM EDT Narrative 08/31/2024 3:48 PM EDT ?[facility] ?[address] ?[place] [address] ?XRay Report ? Signed ? Patient: Cade Whaley,Brandt ?MR#: MM ?? [id number] ? : 1960 ?Acct:[id number] ? Age/Sex: 63 / M ?ADM Date: 08/31/24 ? Loc: HO.HHCX ? Attending Dr: Melisa Jacob MD ? Ordering Physician: Melisa Jacob MD ?? Date of Service: 08/31/24 ?? Procedure(s): XR KUB ?? Accession Number(s): [id number] ? cc: Melisa Jacob MD ? EXAMINATION: [...] DD/ 1524 ? TD/TT: 08/31/24 1530 ? Line Patroller: ? Procedure Note Darling, Image - 08/31/2024 [facility] [address] [place] [address] XRay Report Signed Patient: Brandt NelsonMR#: MM [id number] : 9Acct:[id number] Age/Sex: 63 / MADM Date: 08/31/24 Loc: HO.HHCX Attending Dr: Melisa Jacob MD Ordering Physician: Melisa Jacob MD Date of Service: 08/31/24 Procedure(s): XR KUB Accession Number(s): [id number] cc: Melisa Jacob MD EXAMINATION: XR ABDOMEN [...] 08/31/24 1545 DD/ 1524 TD/TT: 08/31/24 1530 Line Patroller: us Melisa Jacob MD IMG XR PROCEDURES Final Re sult * US KELLY COMPLETE (08/24/2024 4:45 PM EDT) Anatomical Region Laterality Modality Abdomen Ultrasound 08/24/2024 4:45 PM EDT Narrative 08/24/2024 4:46 PM EDT ? [place] [facility] ?[address] ?[place] [address] ? Ultrasound Report ? Signed ? Patient: Cade Macksburg,Brandt ?MR#: MM ?? [id number] ? : 1960 ?Acct:[id number] ? Age/Sex: 63 / M ?ADM Date: 08/23/24 ? Loc: HO.US ? Attending Dr: Nieves Cabrera MD ? Ordering Physician: Nieves Cabrera MD ?? Date of Service: 08/23/24 ?? Procedure(s): US KELLY complete ?? Accession Number(s): [id number] ? cc: Nieves Cabrera MD; Tg Milner [facility] ? CLINICAL HISTORY: TOE PRESSURES, NON HEALING [...] 1646 ? DD/ ? TD/TT: 08/24/245 ? Line Patroller: ? Procedure Note Darling, Image - 08/24/[address] [address] Ultrasound Report Signed Patient: Brandt Nelson#: MM [id number] : 9Acct:[id number] Age/Sex: 63 / MADM Date: 08/23/24 Loc: HO.US Attending Dr: Nieves Cabrera MD Ordering Physician: Nieves Cabrera MD Date of Service: 08/23/24 Procedure(s): US KELLY complete Accession Number(s): [id number] cc: Nieves Cabrera MD; [facility] CLINICAL HISTORY: TOE PRESSURES, NON HEALING [...] OV> 08/24/24 1646 DD/ 164 TD/TT: 08/24/241644 Line Patroller: [facility] External Provider IMG US PROCEDURES Final Result * (ABNORMAL) POCT HGB A1C (07/22/2024 10:04 AM EST) Hemoglobin A1C 8.2(A) 4.0 - 6.0 % QC Media Lot # [id number] Lot# Expiration Date Blood 07/22/2024 10:0 4 AM EST [facility] POINT OF CARE TEST ENTER/EDIT ORDERABLES Final Result * POCT Glucose (07/22/2024 10:04 AM EST) Glucose Blood, POC 145 60 - 200 mg/dL QC Media Lot # [id number] Lot# Expiration Date 025 Blood Capillary blood specimen / Unknown 07/22/2024 10:04 AM EST [facility] POINT OF CARE TEST ENTER/EDIT ORDERABLES Final Result * (ABNORMAL) Lipid Panel, Standard (01/22/2024 10:21 AM EDT) Triglycerides 291(H) <150 mg/dL [facility] Comment:Desirable Triglyceri de: less than 150 mg/dLBorderline High Triglyceride 150-199 mg/dLHigh Triglyceride: 200-499 mg/dLVery High Triglyceride: greater than or equal to 5OO mg/dL Cholesterol 166 <200 mg/dL [facility] Comment:Desirable Cholestero l: less than 200 mg/dLBorderline High Cholesterol: 200-239 mg/dLHigh Cholesterol: greater than 239 mg/dL LDL Cholesterol Calculated 77 <100 mg/dL [facility] Comment:Desirable LDL: less than 100 mg/dLNear Optimal/Above Optimal LDL: 110- 129 mg/dLBorderline High LDL: 130-159 mg/dLHigh LDL: 160-189 mg/dLVery High LDL: greater than or equal to 190 mg/dL HDL Cholesterol 31(L) >40 mg/dL [facility] Comment:Desirable HDL: great er than 40 mg/dL Note: This HDL assay may give artificially low results in patients with liver disease. Blood Venous blood specimen / Unknown 01/22/2024 10:21 AM EDT 01/22/2024 11:05 AM EDT [facility] LAB BLOOD ORDERABLES Final Re sult [facility] [address] [place] [phone] * Hepatitis C Antibody with Reflex to HCV, RNA, Quantitative, Real-Time PCR (09/01/2022 2:59 PM EDT) Hepatitis C Antibody NON-REACT DARY NON-REACT DARY [facility] [place] [facility] Index 0.09 <1.00 [facility] [place] [facility] Comment: HCV antibody was non-reactive. There is no laboratory evidence of HCV infection. In most cases, no further action is required. However, if recent HCV exposure is suspected, a test for HCV RNA (test code 34660) is suggested. For additional information please refer to http://education.[employer] Hero/faq/STJ33j6 (This link is being provided for informational/ educational purposes only.) Blood Venous blood specimen / Unknown 09/01/2022 2:59 PM EDT 09/01/2022 2:59 PM EDT [facility] CORE FINISHER LAB BLOOD ORDERABLES Final Re sult [facility] [address], [place] [address] [facility] [address] [place] [phone] from Last 3 Months or Most Recently Relevant to Health Maintenance Insurance [facility] RETIREMENT OPTIONS (O D-SNP) [place] [id number] Care Teams Contact Center Consultant Relationship Specialty Start Date End Date Tg Milner FNP [address] [place] [phone] PCP - General Family Medicine 04/28/22
--- OUTSIDE RECORDS SUMMARY | 2024-10-05 15:26 | XMS_ITS | Encounter Summary ---
Author Organization [employer] Address [address] [facility] 7t [place] [address] Care Team Providers Care Blanket Cutter Hand Name Role Phone [facility] Primary Care Provider [phone] Reason for Visit * Reason Comments Med Refill Encounter Details Date Type Department Care Team ([facility] st Contact Info) Description 07/01/2023 Refill [facility] [address] [place] [address] [facility] [address] [place] [address] Primary osteoarthritis of right knee Social History [...] the past 12 months, has t he [employer] gas, oil or water company threatened to [...] Description 10/19/2024 11:15 AM EDT Office Visit [facility] [address] [place] [address] Tg Milner FNP [address] [place] [address] documented as of this encounter Visit Diagnoses Diagnosis Primary osteoarthritis of right knee documented in this encounter Additional Health Concerns Assessment Noted Time PHQ-9 Depression Total Score: 0 11/25/19 23 3:32 PM EDT documented as of this encounter Care Teams Blanket Cutter Hand Relationship Specialty Start Date End Date Tg Milner FNP [address] [place] [address] PCP - General Family Medicine 04/28/22 documented as of this encounter
--- OUTSIDE RECORDS SUMMARY | 2024-10-05 15:26 | XMS_ITS | Encounter Summary ---
Author Organization [employer] Address [address] [facility] 7t [place] [address] Care Team Providers Care Alliance Consultant Name Role Phone [facility] Primary Care Provider [phone] Reason for Visit * Reason Onset Date Comments Med Refill 10/03/2024 Encounter Details Date Type Department Care Team ([facility] st Contact Info) Description 10/03/2024 Refill [facility] [address] [place], [place] [phone] [facility] [address] [place] [address] Social History Tobacco Use Types Packs/Day Years [...] 10/19/2024 11:15 AM EDT Office Visit [facility] [address] [place] [address] Tg Milner FNP [address] [place] [address] documented as of this encounter Visit Diagnoses Not on filedocumented in this encounter Additional Health Concerns Assessment Noted Time PHQ-9 Depression Total Score: 0 07/22/19 25 10:03 AM EST documented as of this encounter Care Teams Alliance Consultant Relationship Specialty Start Date End Date Tg Milner FNP [address] [place] [address] PCP - General Family Medicine 04/28/22 documented as of this encounter
--- OUTSIDE RECORDS SUMMARY | 2024-10-05 15:26 | XMS_ITS | Encounter Summary ---
Author Organization [employer] Address [address] [facility] [address] 7[address] [place] [address] Care Team Providers Care Car Sander Name Role Phone Tg Milner RESIDENCY COORDINATOR Primary Care Provider [phone] Reason for Visit * Reason Comments Med Refill Encounter Details Date Type Department Care Team ([facility] st Contact Info) Description 10/04/2024 Refill [facility] [address] [place] [address] Melisa Jacob MD [address] [place] [address] Pain in right lumbar region of back; [...] Description 10/19/2024 11:15 AM EDT Office Visit [facility] [address] [place] [address] Tg Milner FNP [address] [place] [address] documented as of this encounter Visit Diagnoses Diagnosis Pain in right lumbar region of back Right flank pain Abdominal pain, unspecified site documented in this encounter Additional Health Concerns Assessment Noted Time PHQ-9 Depression Total Score: 0 07/22/19 25 10:03 AM EST documented as of this encounter Care Teams Car Sander Relationship Specialty Start Date End Date Tg Milner FNP [address] [place] [address] PCP - General Family Medicine 04/28/22 documented as of this encounter
--- OUTSIDE RECORDS SUMMARY | 2024-10-05 15:26 | XMS_ITS | Encounter Summary ---
Author Organization [employer] [facility] Address [address] [place] [address] Care Team Providers Care Supervising Editor News Reel Name Role Phone [place] [facility] Primary Care Provider [phone] Reason for Visit * Reason Comments Med Refill Encounter Details Date Type Department Care Team (Late st Contact Info) Description 12/25/2022 Refill [facility] MEDICINE [address] [place] [address] [facility] [address] [place], [place] [phone] Type 2 diabetes mellitus without complication, without long-term current use of insulin ([facility]) Social History Tobacco Use Types [...] [facility] [address] [place] [address] [facility] [address] [place], [place] [phone] documented as of this encounter Visit Diagnoses Diagnosis Type 2 diabetes mellitus without complication, without long-term current use of insulin ([facility]) documented in this encounter Additional Health Concerns Assessment Noted Time PHQ-9 Depression Total Score: 0 11/25/19 23 3:32 PM EDT documented as of this encounter Care Teams Supervising Editor News Reel Relationship Specialty Start Date End Date Tg Milner FNP [address] [place] [address] PCP - General Family Medicine 04/28/22 documented as of this encounter
--- OUTSIDE RECORDS SUMMARY | 2024-10-05 15:26 | XMS_ITS | Encounter Summary ---
Author Organization [employer] [facility] Address [address] [place] [address] [address] [address] Care Team Providers Care Family Psychologist Name Role Phone [facility] Primary Care Provider [phone] Reason for Visit * Reason Comments Med Refill Encounter Details Date Type Department Care Team (Late Contact Info) Description 12/22/2022 Refill [facility] [address] [place] [address] [facility] [address] [place] [address] Primary hypertension Social History Tobacco Use Types [...] Description 10/19/2024 11:15 AM EDT Office Visit [facility] [address] [place] [address] Tg Milner FNP [address] [place] [address] documented as of this encounter Visit Diagnoses Diagnosis Primary hypertension Unspecified essential hypertension documented in this encounter Additional Health Concerns Assessment Noted Time PHQ-9 Depression Total Score: 0 11/25/19 23 3:32 PM EDT documented as of this encounter Care Teams Family Psychologist Relationship Specialty Start Date End Date Tg Milner FNP [address] [place] [address] PCP - General Family Medicine 04/28/22 documented as of this encounter
--- OUTSIDE RECORDS SUMMARY | 2024-10-05 15:26 | XMS_ITS | Encounter Summary ---
Author Organization [employer] Address [address] [facility] [address] [place] [address] Care Team Providers Care Recep Name Role Phone Tg Milner [facility] Primary Care Provider [phone] Encounter Details Date Type Department Care Team (Late st Contact Info) Description 04/17/[address] [facility] [address] [place] [address] [employer] Social History Tobacco Use Types [...] Office Visit [facility] [address] [place] [address] Tg Milner FNP [address] [place] [address] documented as of this encounter Visit Diagnoses Not on filedocumented in this encounter Additional Health Concerns Assessment Noted Time PHQ-9 Depression Total Score: 0 11/25/19 23 3:32 PM EDT documented as of this encounter Care Teams Recep Relationship Specialty Start Date End Date Tg Milner FNP [address] [place] [address] PCP - General Family Medicine 04/28/22 documented as of this encounter
--- OUTSIDE RECORDS SUMMARY | 2024-10-05 15:26 | XMS_ITS | Encounter Summary ---
Author Organization [employer] Address [address] [facility] [address] [place] [address] Care Team Providers Care Boat Oar Maker Name Role Phone [place], [facility] Primary Care Provider Reason for Visit * Reason Comments Med Refill Encounter Details Date Type Department Care Team ([facility] st Contact Info) Description 08/31/2024 Refill [facility] [address] [place] [address] [facility] [address] [place] [address] Primary hypertension Social History Tobacco Use Types [...] Description 10/19/2024 11:15 AM EDT Office Visit [facility] [address] [place] [address] Tg Milner FNP [address] [place] [address] documented as of this encounter Visit Diagnoses Diagnosis Primary hypertension Unspecified essential hypertension documented in this encounter Additional Health Concerns Assessment Noted Time PHQ-9 Depression Total Score: 0 07/22/19 25 10:03 AM EST documented as of this encounter Care Teams Boat Oar Maker Relationship Specialty Start Date End Date Tg Milner FNP [address] [place] [address] PCP - General Family Medicine 04/28/22 documented as of this encounter
[2024-10-05 16:23] LABS: Appearance Urine Turbid; Color Urine Yellow; Glucose Urine UA >=1000 mg/dL (Negative); Leukocyte Esterase Urine Large (3+) (Negative); Nitrite Urine Negative (Negative); PH 7.5 (5.0-9.0); Specific Gravity - Urine >= 1.030 (1.005-1.025); UMIC TRIGGER UA YES; Urine Blood Moderate (2+) (Negative); Urine Ketones Negative (Negative); Urine Protein 30 (1+) mg/dL (Neg-Trace)
[2024-10-05 16:42] LABS: Bacteria Urine 4+ (None Seen); Hyaline Casts Urine >20 /LPF (0-2); Squamous Epithelial Cell Urine 0-2 /HPF (0-2); WBC Urine >50 /HPF (0-5)
[2024-10-05 16:48] LABS: Anion Gap 15 (12-20); Blood Urea Nitrogen 31 mg/dL (9-16); Calcium 9.8 mg/dL (8.4-10.2); Carbon Dioxide 26 mmol/L (22-29); Chloride 101 mmol/L (96-108); Estimated Glomerular Filt Rate 38; Glucose Random 196 mg/dL (60-115); Potassium 4.7 mmol/L (3.3-5.1); Sodium 137 mmol/L (135-145)
[2024-10-05 16:58] LABS: Creatinine Urine 52.88 mg/dL; Total Protein Urine Random 41 mg/dL (<12)
== END 2024-10-05 14:15 | disposition home or self-care (01) ==
LOC: HO.HHCL 14:14
PROVIDERS: Visit Provider Internal Medicine Hypertension Specialist
DX: I12.9 Hypertensive chronic kidney disease with stage 1 through stage 4 chronic kidney disease, or unspecified chronic kidney disease (principal); E11.22 Type 2 diabetes mellitus with diabetic chronic kidney disease; N18.9 Chronic kidney disease, unspecified; E11.65 Type 2 diabetes mellitus with hyperglycemia
CPT/HCPCS: 36415; 80048; 81001; 82570; 84156; 99212

== ENCOUNTER 2024-10-07 20:29 | Emergency (ER) | payer OTHER, SELFPAY ==
[2024-10-07 20:32] VITALS: BP 151/83; PULSE 76; RESP 18; TEMP 36.7; O2SAT 99; BMI 34.9
--- NOTE | 2024-10-07 20:33 | ED.MALEGU ---
HPI - Male Genitourinary General Chief complaint: Urogenital-Male Stated complaint: has bo, no urine output Time Seen by Provider: 10/07/24 21:03 Source: patient Mode of arrival: ambulatory Limitations: no limitations History of Present Illness ED Provider: HPI Narrative: Patient with prostate enlargement with Bo catheter placed last month replace 1 week ago comes here as suprapubic discomfort him Bo catheter is not draining since yesterday no fever no chills Related Data Home Medications ?Medication ?Instructions ?Recorded ?Confirmed aspirin 81 mg tablet,delayed 81 mg PO DAILY 03/29/20 10/05/24 release (Adult Aspirin Regimen) gabapentin 800 mg tablet 800 mg PO BID 03/29/20 10/05/24 metformin 1,000 mg tablet 1,000 mg PO BID 03/29/20 10/05/24 metoprolol succinate 200 mg 200 mg PO DAILY 03/29/20 10/05/24 tablet,extended release 24 hr alcohol swabs (Alcohol Prep Pads) pad topical DAILY 08/29/21 10/05/24 blood sugar diagnostic (FreeStyle #10 ea 08/29/21 10/05/24 Lite Strips) lancets 33 gauge (TRUEplus Lancets) #100 ea 08/29/21 10/05/24 latanoprost 0.005 % eye drops 1 drp ophthalmic (eye) BEDTIME 08/29/21 10/05/24 melatonin 5 mg tablet 10 mg PO BEDTIME PRN insomnia 08/29/21 10/05/24 pantoprazole 20 mg tablet,delayed 20 mg PO DAILY 08/29/21 10/05/24 release amlodipine 10 mg tablet 10 mg PO DAILY 02/25/24 10/05/24 dulaglutide 4.5 mg/0.5 mL mg subcut 02/25/24 10/05/24 subcutaneous pen injector (Trulicity) pravastatin 40 mg tablet 40 mg PO DAILY 02/25/24 10/05/24 empagliflozin 25 mg tablet 25 mg PO DAILY 06/15/24 10/05/24 (Jardiance) acetaminophen 500 mg tablet 500 mg PO Q6H PRN mild pain 10/05/24 10/05/24 Previous Rx's ?Medication ?Instructions ?Recorded diphenoxylate-atropine 2.5 1 tab PO DAILY PRN diarrhea #4 tabs 01/21/21 mg-0.025 mg tablet (Lomotil) clotrimazole-betamethasone 1 1 appl topical BID 4 weeks #45 08/29/ %-0.05 % topical cream grams docusate sodium 250 mg capsule 250 mg PO BID PRN constipation #10 09/01/24 caps bisacodyl 5 mg tablet,delayed 5 mg PO ONCE 1 day #3 tabs 09/16/24 release polyethylene glycol 3350 17 238 g PO ONCE laxative effect 1 09/16/24 gram/dose oral powder (Miralax) day #238 grams cefuroxime axetil 500 mg tablet 500 mg PO BID 10 days #20 tabs 10/07/24 Allergies Allergy/AdvReac Type Severity Reaction Status Date / Time No Known Allergies Allergy Verified 10/07/24 20:39 [No Known Allergies*] Review of Systems Review of Systems: Yes all other systems are reviewed and are negative PMFSH Past Medical History Medical History Osteomyelitis DM2 (diabetes mellitus, type 2) Essential hypertension Right lumbar radiculopathy Arthritis of both knees Balanitis Type 2 diabetes mellitus with polyneuropathy Hyperlipidemia LDL goal <100 Obesity due to excess calories Type 2 diabetes mellitus with hyperglycemia, with long-term current use of insulin Surgical History H/O colonoscopy Hx of tonsillectomy Hx of appendectomy Family History Family History Father No problems noted. 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 Oriented X3. No acute distress. Eyes: No pallor or icterus ENT: Pharynx normal. Oral Mucosa moist Neck: Normal inspection. Neck supple. CVS: Normal heart rate and rhythm. Pulses normal. Respiratory: No respiratory distress. Equal air entry bilateral, no wheezing/rales/rhonchi Abdomen: Soft , suprapubic fullness Bowel sounds are present, no mass palpable, no CVA tenderness Skin: Skin warm and dry. Normal skin color. Normal skin turgor. Extremities: No lower extremity edema. No calf tenderness Neuro: Oriented X 3. No motor deficit. Course Course Course Narrative: This is an RME performed by Marisa Pedraza, BENCH LATHE OPERATOR: Additional HPI, ROS, PE not included below will be deferred to primary provider. Patient seen in ED 09/01/24 Bo catheter placed for urinary retention, had follow-up with urology nurse last week, Bo catheter was replaced, a catheter is intact with a valve at the end no attached drainage bag, reports that he opens the valve every 3 hours for urinary drainage however since, 12:00 today no urinary output from catheter, associated mid lower abdominal pain. Plan: labs, bladder scan, UA Bladder scan revealing 937mL charge nurse aware. Patietn will be brought to bed 19 Medications Administered Discontinued Medications Generic Name Dose Route Start Last Admin Trade Name Freq PRN Reason Stop Dose Admin Cefuroxime Axetil 500 mg 10/07/24 22:41 10/07/24 23:01 Cefuroxime Axetil 500 Mg Tablet PO 10/07/24 22:42 500 mg ONCE ONE Administration Medical Decision Making Medical Decision Making MDM Narrative: Bo catheter was replaced urine shows WBCs leuko esterase positive will prescribe cefuroxime Lab Data [facility] Lab Attestation statement: I reviewed the patient's lab results. 10/07/24 20:49 10/07/24 20:49 Labs: Lab Results 10/07/24 10/07/24 Range/Units 20:49 21:17 WBC 12.0 H (4.8-10.8) X10*3/uL RBC 4.99 (4.60-5.80) X10*6/uL Hgb 14.2 (14.0-18.0) g/dl Hct 42.1 (42.0-52.0) % MCV 84.4 (80.0-98.0) fL MCH 28.5 (27.0-33.0) pg MCHC 33.7 (31.0-36.0) g/dl RDW 13.7 (11.0-16.0) % Plt Count 252 (160-400) X10*3/uL MPV 9.7 (9.4-12.4) fL Immature Gran % (Auto) 0.4 (0.0-0.4) % Neut % (Auto) 71.7 (45-73) % Lymph % (Auto) 16.5 L (20-40) % Edmunds % (Auto) 8.6 (2-11) % Eos % (Auto) 2.2 (0-4) % Baso % (Auto) 0.6 (0-2) % Lymph # (Auto) 2.0 (1.2-4.9) X10*3/uL Edmunds # (Auto) 1.0 (0.1-1.2) X10*3/uL Eos # (Auto) 0.3 (0.0-0.4) X10*3/uL Baso # (Auto) 0.1 (0.0-0.2) X10*3/uL Abs Immat Gran (auto) 0.05 H (0.00-0.03) X10*3/uL Absolute Neuts (auto) 8.6 H (2.0-8.3) x10*3/uL Absolute Nucleated RBC 0.000 (0.0-0.012) X10*3/uL Nucleated RBC % (auto) 0.0 (0.0-0.2) /100WBC Sodium 137 (135-145) mmol/L Potassium 4.4 (3.3-5.1) mmol/L Chloride 101 (96-108) mmol/L Carbon Dioxide 26 (22-29) mmol/L Anion Gap 14 (12-20) BUN 35 H (9-16) mg/dL Creatinine 2.02 H (0.5-1.4) mg/dL Estim Creat Clear Calc 45.3 Estimated GFR 33 Random Glucose 204 H (60-115) mg/dL Calcium 9.8 (8.4-10.2) mg/dL Total Bilirubin 0.3 (0.0-1.0) mg/dL AST 23 (5-37) U/L ALT 23 (0-40) U/L Alkaline Phosphatase 67 (39-117) U/L Total Protein 8.6 H (6.5-8.0) g/dL Albumin 4.1 (3.5-5.0) g/dL Urine Color Yellow Urine Appearance Turbid Urine pH >= 9.0 (5.0-9.0) Ur Specific Hancock 1.020 (1.005-1.025) Urine Protein 300 (3+) H (Neg-Trace) mg/dL Urine Glucose (UA) 500 H (Negative) mg/dL Urine Ketones Negative (Negative) mg/dL Urine Blood Moderate (2+) H (Negative) Urine Nitrite Negative (Negative) Ur Leukocyte Esterase Large (3+) H (Negative) Urine RBC 0-2 (0-2) /HPF Urine WBC >50 H (0-5) /HPF Ur Squamous Epith Cells 0-2 (0-2) /HPF Urine Bacteria 4+ (None Seen) Hyaline Casts 6-10 (0-2) /LPF Discharge Plan Discharge Clinical Impression: UTI (urinary tract infection) due to urinary indwelling catheter Patient Disposition: Home, Self-Care Instructions: Urinary Tract Infection in Men (DC), Bo Catheter Placement and Care (ED) Additional Instructions: Drink plenty of fluids Take antibiotic as prescribed Follow up with your urologist Prescriptions: New cefuroxime axetil 500 mg tablet 500 mg PO BID 10 Days Qty: 20 0RF No Action diphenoxylate-atropine [Lomotil] 2.5-0.025 mg tablet 1 tab PO DAILY PRN (Reason: diarrhea) Qty: 4 0RF docusate sodium 250 mg capsule 250 mg PO BID PRN (Reason: constipation) Qty: 10 0RF metformin 1,000 mg tablet 1,000 mg PO BID gabapentin 800 mg tablet 800 mg PO BID metoprolol succinate 200 mg tablet extended release 24 hr 200 mg PO DAILY aspirin [Adult Aspirin Regimen] 81 mg tablet,delayed release (DR/EC) 81 mg PO DAILY melatonin 5 mg tablet 10 mg PO BEDTIME PRN (Reason: insomnia) pantoprazole 20 mg tablet,delayed release (DR/EC) 20 mg PO DAILY alcohol swabs [Alcohol Prep Pads] Pads, Medicated topical DAILY (DME) FreeStyle Lite Strips Strip See Rx Instructions Not Applicable DAILY Qty: 10 Rx Instructions: As directed latanoprost 0.005 % drops 1 drp ophthalmic (eye) BEDTIME (DME) lancets [TRUEplus Lancets] 33 gauge misc See Rx Instructions Not Applicable DAILY Qty: 100 Rx Instructions: As directed clotrimazole-betamethasone 1-0.05 % cream 1 appl topical BID 28 Days Qty: 45 0RF Rx Instructions: Apply thin coat 2 times per day amlodipine 10 mg tablet 10 mg PO DAILY Trulicity 4.5 mg/0.5 mL pen injector subcut pravastatin 40 mg tablet 40 mg PO DAILY Jardiance 25 mg tablet 25 mg PO DAILY polyethylene glycol 3350 [Miralax] 17 gram/dose powder 238 g PO ONCE 1 Days Qty: 238 0RF Rx Instructions: Take as directed by mouth the day before your procedure. bisacodyl 5 mg tablet,delayed release (DR/EC) 5 mg PO ONCE 1 Days Qty: 3 0RF Rx Instructions: per colonoscopy instructions acetaminophen 500 mg tablet 500 mg PO Q6H PRN (Reason: mild pain) Interventions: ED Discharge Assessment Last Done: 10/07/24 23:06 Discharge Date/Time: 10/07/24 23:15 Print Language: Tongan
[2024-10-07 20:53] LABS: MANUAL DIFF FLAG NO
[2024-10-07 20:55] LABS: Basophils Absolute Auto 0.1 X10*3/uL (0.0-0.2); Basophils Percent Auto 0.6 % (0-2); Eosinophils Absolute Auto 0.3 X10*3/uL (0.0-0.4); Eosinophils Percent Auto 2.2 % (0-4); Hematocrit 42.1 % (42.0-52.0); Hemoglobin 14.2 g/dl (14.0-18.0); Imm Gran Abs Auto 0.05 X10*3/uL (0.00-0.03); Imm Gran Pct Auto 0.4 % (0.0-0.4); Lymphocytes Percent Auto 16.5 % (20-40); Mean Corpuscular HGB Conc 33.7 g/dl (31.0-36.0); Mean Corpuscular Hemoglobin 28.5 pg (27.0-33.0); Mean Corpuscular Volume 84.4 fL (80.0-98.0); Mean Platelet Volume 9.7 fL (9.4-12.4); Monocytes Percent Auto 8.6 % (2-11); Neutrophils Absolute Auto 8.6 x10*3/uL (2.0-8.3); Neutrophils Percent Auto 71.7 % (45-73); Platelet Count 252 X10*3/uL (160-400); Red Blood Count 4.99 X10*6/uL (4.60-5.80); Red Cell Distribution Width 13.7 % (11.0-16.0)
--- NOTE | 2024-10-07 20:57 | PC.NURSE ---
pt a&ox4, respirations even and unlabored. pt reports x2 days of inability to make urine, pt reports he has a bo in place in which he does not empty into a bag, he emptied it every 3 hours. pt bladder scan >900. per , remove bo and replace it at this time. pt reports some lower abdominal discomfort.
[2024-10-07 21:08] LABS: Alanine Aminotransferase 23 U/L (0-40); Albumin Level 4.1 g/dL (3.5-5.0); Alkaline Phosphatase 67 U/L (39-117); Anion Gap 14 (12-20); Aspartate Amino Transferase 23 U/L (5-37); Bilirubin Total 0.3 mg/dL (0.0-1.0); Blood Urea Nitrogen 35 mg/dL (9-16); Calcium 9.8 mg/dL (8.4-10.2); Carbon Dioxide 26 mmol/L (22-29); Chloride 101 mmol/L (96-108); Creatinine Clr Calc Pharmacy 45.3; Estimated Glomerular Filt Rate 33; Glucose Random 204 mg/dL (60-115); Potassium 4.4 mmol/L (3.3-5.1); Sodium 137 mmol/L (135-145); Total Protein 8.6 g/dL (6.5-8.0)
--- NOTE | 2024-10-07 21:11 | PC.NURSE ---
previous bo removed at this time, 16f bo replaced, draining well, 1000cc cloudy yellow urine voided. pt tolerated well.
--- NOTE | 2024-10-07 21:15 | MHC.EDTECH ---
920ml of urine emptied from [employer] bag. RN aware
[2024-10-07 21:32] LABS: Appearance Urine Turbid; Color Urine Yellow; Glucose Urine UA 500 mg/dL (Negative); Leukocyte Esterase Urine Large (3+) (Negative); Nitrite Urine Negative (Negative); PH >= 9.0 (5.0-9.0); UMIC TRIGGER UACC YES; Urine Blood Moderate (2+) (Negative); Urine Ketones Negative (Negative); Urine Protein 300 (3+) mg/dL (Neg-Trace)
--- OUTSIDE RECORDS SUMMARY | 2024-10-07 21:37 | XMS_ITS | Clinical Summary ---
Author Organization [employer] Address [address] [place] [address] [address] [place] [address] Care Team Providers Care Welfare Adviser Name Role Phone Tg Milner [facility] Primary Care Provider [phone] Allergies No known active allergies Medications cyclobenzaprine [...] polyneuropathy associated with type 2 diabetes mellitus ([facility]) TEST BLOOD SUGAR ONCE DAILY [...] complication, without long-term current use of insulin ([facility]) Inject 4.5 mg under the skin 1 (one) time per week. 4 each Active Jardiance 25 MGIndications:Typ e 2 diabetes mellitus without complication, without long-term current use of insulin ([facility]) TAKE 1 TABLET BY [...] complication, without long-term current use of insulin ([facility]) TAKE 2 TABLETS BY [...] unspecified whether stage 3a or 3b CKD ([facility]) Inject 6 Units under the skin at bedtime. 3 mL 025 2025 Active insulin pen needle 32G x 4 mm miscIndications:T ype 2 diabetes mellitus with stage 3 chronic kidney disease, with long-term current use of insulin, unspecified whether stage 3a or 3b CKD ([facility]) Use as instructed 100 each 025 2025 Active Continuous Glucose Sensor (FreeStyle May 2 Sensor) miscIndications:T ype 2 diabetes mellitus with stage 3 chronic kidney disease, with long-term current use of insulin, unspecified whether stage 3a or 3b CKD ([facility]) Use as directed 2 each 3 025 Active Continuous Glucose Sweatband Flanger (FreeStyle May 2 [place]) deviceIndications :Type 2 diabetes mellitus with stage 3 chronic kidney disease, with long-term current use of insulin, unspecified whether stage 3a or 3b CKD ([facility]) Use as directed 1 [...] today AAA screening: Ordered 12/2023 Vision Exam: [facility]; UTD Dental Care: Overdue. Pt with anxiety [...] insufficiency 06/14/2018 Overview (11/26/2022): ?? Followed by [facility] [place] [place] vascular ?? Compression stockings ?? Pain managed with gabapeentin 800mg t.i.d ?? Followed by [facility] [place] wound care for venous stasis ulcer Assessment [...] Foot Exam: 07/2023--RISK 1 Eye Exam: Through [facility]. UTD Statin: Yes ASA: Yes [...] Encounters Date Type Department Care Team Description 10/07/2024 Orders Only GENERIC EXTERNAL DATA DEPARTMENT Provider, Generic External Data 10/05/2024 Orders Only GENERIC EXTERNAL DATA DEPARTMENT Provider, Generic External Data 10/04/2024 Refill [facility] WALK-IN [address] [address] Melisa Jacob MD Pain in right lumbar region of back; Right flank pain 10/03/2024 Refill [facility] CHC MED & PEDS [address] [place] [address] [facility] 09/15/2024 10:00 AM EDT Clinical Support [facility] MEDICINE [address] [place] [phone] Heidi Silva, LANA Type 2 diabetes mellitus with stage 3b chronic kidney disease, with long-term current use of insulin ([facility]); Healthcare maintenance 09/15/[address] [address] Heidi Silva, RN CGM Appt 09/15/2024 Travel 09/01/2024 Orders Only GENERIC EXTERNAL DATA DEPARTMENT Provider, Generic External Data 09/01/[address] [address] Nicole Kaur RN Results 08/31/2024 3:00 PM EDT Office Visit [facility] WALK-IN CENTER [address] [place] [phone] Melisa Jacob MD Pain in right lumbar region of back (Primary Dx); Right flank pain; Calcaneal bursitis (heel), right; Class 1 obesity due to excess calories with serious comorbidity and body mass index (BMI) of 34.0 to 34.9 in adult; Dietary counseling; Exercise counseling 08/31/[address] [address] Melisa Jacob MD 08/31/[address] [address] Tg Milner FNP Primary hypertension 08/23/2024 Orders Only [facility] External Provider, [facility] 08/16/2024 1:00 PM EDT Clinical Support [address] [address] Heidi Silva RN Type 2 diabetes mellitus with other circulatory complication, without long-term current use of insulin ([facility]) 08/16/2024 Travel 08/04/2024 Refill [facility] MED [facility] PEDS [address] [place], [place] [phone] Tg Milner FNP Primary osteoarthritis of right knee 07/25/[address] [address] Tg Milner FNP CGM PA 07/22/2024 10:15 AM EST Office Visit [address] [address] Tg Milner FNP Type 2 diabetes mellitus with stage 3 chronic kidney disease, with long-term current use of insulin, unspecified whether stage 3a or 3b CKD (CMS/HCC) (Primary Dx); Essential hypertension; Dietary counseling; Exercise counseling; Class 1 obesity due to excess calories with serious comorbidity and body mass index (BMI) of 34.0 to 34.9 in adult 07/22/2024 Travel 07/21/[address] [address] Tg Milner FNP chart prep from Last 3 Months Immunizations [...] Description 10/19/2024 11:15 AM EDT Office Visit [facility] MEDICINE [address] [place] [address] [place], [place], [facility] [address] [place], [place] [phone] Health Maintenance Due Date Last Done Comments [...] Procedure Name Priority Date/Time Associated Diagnosis Comments COMPREHENSIVE METABOLIC PANEL Routine 10/07/2024 8:49 PM EDT CBC WITH AUTO DIFFERENTIAL Routine 10/07/2024 8:49 PM EDT URINE PROTEIN, TOTAL, RANDOM (W/O CREATININE) Routine 10/05/2024 2:26 PM EDT CREATININE, RANDOM URINE Routine 10/05/2024 2:26 PM EDT URINALYSIS, COMPLETE Routine 10/05/2024 2:26 PM EDT BASIC METABOLIC PANEL Routine 10/05/2024 2:17 PM EDT HEPATITIS B SURFACE ANTIBODY, QUALITATIVE Routine 10/04/2024 2:44 PM EDT Healthcare maintenance VITAMIN B12 Routine 10/04/2024 2:44 PM EDT Type 2 diabetes mellitus with stage 3b chronic kidney disease, with long-term current use of insulin ([facility]) URINALYSIS, COMPLETE, WITH REFLEX TO [...] Relevant to Health Maintenance Results * (ABNORMAL) CBC auto differential (10/07/2024 8:49 PM EDT) Only the most recent of3 resultswithin the time period is included. White Blood Count 12.0(H) 4.8 - 10.8 X10*3/uL [facility] Red Blood Count 4.99 4.60 - 5.80 X10*6/uL [facility] Hemoglobin 14.2 14.0 - 18.0 g/dl [facility] Hematocrit 42.1 42.0 - 52.0 % [facility] Mean Corpuscular Volume 84.4 80.0 - 98.0 fL [facility] Mean Corpuscular Hemoglobin 28.5 27.0 - 33.0 pg [facility] Mean Corpuscular HGB Conc 33.7 31.0 - 36.0 g/dl [facility] Red Cell Distribution Width 13.7 11.0 - 16.0 % [facility] Platelet Count 252 160 - 400 X10*3/uL [facility] Mean Platelet Volume 9.7 9.4 - 12.4 fL [facility] Neutrophils Percent Auto 71.7 45 - 73 % [facility] Imm Gran Pct Auto 0.4 0.0 - 0.4 % [facility] Lymphocytes Percent Auto 16.5(L) 20 - 40 % [facility] Monocytes Percent Auto 8.6 2 - 11 % [facility] Eosinophils Percent Auto 2.2 0 - 4 % [facility] Basophils Percent Auto 0.6 0 - 2 % [facility] NRBC Pct Auto 0.0 0.0 - 0.2 /100WBC [facility] Neutrophils Absolute Auto 8.6(H) 2.0 - 8.3 x10*3/uL [facility] Imm Gran Abs Auto 0.05(H) 0.00 - 0.03 X10*3/uL [facility] Lymphocytes Absolute Auto 2.0 1.2 - 4.9 X10*3/uL [facility] Monocytes Absolute Auto 1.0 0.1 - 1.2 X10*3/uL [facility] Eosinophils Absolute Auto 0.3 0.0 - 0.4 X10*3/uL [facility] Basophils Absolute Auto 0.1 0.0 - 0.2 X10*3/uL [facility] NRBC Abs Auto 0.000 0.0 - 0.012 X10*3/uL [facility] 10/07/2024 8:49 PM EDT 10/07/2024 8:52 PM EDT us Generic External Data Provider LAB BLOOD ORDERAB LES Final Result [facility] [address] [place] [address] [phone] * (ABNORMAL) Comprehensive Metabolic Panel (10/07/2024 8:49 PM EDT) Only the most recent of2 resultswithin the time period is included. Sodium 137 135 - 145 mmol/L [facility] Potassium 4.4 3.3 - 5.1 mmol/L [facility] Chloride 101 96 - 108 mmol/L [facility] Carbon Dioxide 26 22 - 29 mmol/L [facility] Anion Gap 14 12 - 20 [facility] Urea Nitrogen (BUN) 35(H) 9 - 16 mg/dL [facility] Creatinine, Serum 2.02(H) 0.5 - 1.4 mg/dL [facility] Creatinine Clr Calc Pharmacy 45.3 [facility] Comment:eGFR (calculated fro m the MDRD study equation) and eCrCl(calculated from the Cockcroft-Gault equation) are based ondifferent parameters and may not yield comparable results.If eCrCl result is absurd, please check patient'sheight/weight. Estimated Glomerular Filt Rate 33 [facility] Comment:Chronic Kidney Disea se: Estimated GFR < 60 mL/min/1.87n3Rgeqlq Kidney Disease: Estimated GFR < 15 mL/min/1.73m2 Glucose 204(H) 60 - 115 mg/dL [facility] Calcium 9.8 8.4 - 10.2 mg/dL [facility] Bilirubin, Total 0.3 0.0 - 1.0 mg/dL [facility] Aspartate Amino Transferase 23 5 - 37 U/L [facility] Alanine Aminotransferase 23 0 - 40 U/L [facility] Total Protein 8.6(H) 6.5 - 8.0 g/dL [facility] Albumin Level 4.1 3.5 - 5.0 g/dL [facility] Alkaline Phosphatase 67 39 - 117 U/L [facility] 10/07/2024 8:49 PM EDT 10/07/2024 8:52 PM EDT us Generic External Data Provider LAB BLOOD ORDERAB LES Final Result [facility] [address] [place] [address] [phone] * (ABNORMAL) Urine Protein, Total, Random without Creatinine (10/05/2024 2:26 PM EDT) Protein, Total, Random Urine 41(H) <12 mg/dL [facility] 10/05/2024 2:26 PM EDT 10/05/2024 4:08 PM EDT us Generic External Data Provider LAB URINE ORDERAB LES Final Result Performing Organization Address [facility] Co de Phone Number [facility] [address] [place] [phone] * Creatinine, Random Urine (10/05/2024 2:26 PM EDT) Creatinine, Urine 52.88 mg/dL [facility] 10/05/2024 2:2 6 PM EDT 10/05/2024 4:08 PM EDT Generic External Data Provider LAB URINE ORDERAB LES Final Result Performing Organization Address [facility] de Phone Number [facility] [address] [place] [phone] * (ABNORMAL) Urinalysis Complete (10/05/2024 2:26 PM EDT) Color Urine Yellow [facility] Appearance Urine Turbid [facility] PH 7.5 5.0 - 9.0 [facility] Glucose Urine UA >=1000(A) Negative mg/dL [facility] Urine Blood Moderate (2+)(A) Negative [facility] Specific Drift - Urine >=1.030(H) 1.005 - 1.025 [facility] Urine Protein 30 (1+)(A) Neg-Trace mg/dL [facility] Urine Ketones Negative Negative mg/dL [facility] Nitrite Urine Negative Negative [facility] Leukocyte Esterase Urine Large (3+)(A) Negative [facility] RBC Urine 11-20(A) 0 - 2 /HPF [facility] Urine WBC >50(A) 0 - 5 /HPF [facility] Urine Squamous Epithelial Cell 0-2 0 - 2 /HPF [facility] Urine Bacteria 4+ None Seen [facility] Hyaline Casts, Urine >20 0 - 2 /LPF [facility] Urine Yeast Present [facility] 10/05/2024 2:26 PM EDT 10/05/2024 4:08 PM EDT us Generic External Data Provider LAB URINE ORDERAB LES Final Result Performing Organization Address [facility]/ZIP Co de Phone Number [facility] [address] [place] [phone] * (ABNORMAL) Basic Metabolic Panel (10/05/2024 2:17 PM EDT) Sodium 137 135 - 145 mmol/L [facility] Potassium 4.7 3.3 - 5.1 mmol/L [facility] Chloride 101 96 - 108 mmol/L [facility] Carbon Dioxide 26 22 - 29 mmol/L [facility] Anion Gap 15 12 - 20 [facility] Urea Nitrogen (BUN) 31(H) 9 - 16 mg/dL [facility] Creatinine, Serum 1.82(H) 0.5 - 1.4 mg/dL [facility] Estimated Glomerular Filt Rate 38 [facility] Comment:Chronic Kidney Disea se: Estimated GFR < 60 mL/min/1.53o5Tquyuc Kidney Disease: Estimated GFR < 15 mL/min/1.73m2 Glucose 196(H) 60 - 115 mg/dL [facility] Calcium 9.8 8.4 - 10.2 mg/dL [facility] 10/05/2024 2:17 PM EDT 10/05/2024 4:13 PM EDT us Generic External Data Provider LAB BLOOD ORDERAB LES Final Result Performing Organization Address [facility]/ZIP Co de Phone Number [facility] [address] [place] [phone] * Hepatitis B Surface Antibody, Qualitative (10/04/2024 2:44 PM EDT) ~Hepatitis B Surface Antibody NONREACTIVE Nonreactive [facility] Comment:Nonreactive: < 8.00 mIU/mL Blood Venous blood specimen / Unknown 10/04/2024 2:44 PM EDT 10/04/2024 4:01 PM EDT [facility] LAB BLOOD ORDERABLES Final Re sult Performing Organization Address [facility] Co de Phone Number [facility] [address] [place] [phone] * Vitamin B12 (10/04/2024 2:44 PM EDT) Vitamin B12 278 200 - 900 pg/mL [facility] Comment:NORMAL 200-900 PG/ML INDETERMINATE 160-199 PG/ML DEFICIENT < 160 PG/ML Blood Venous blood specimen / Unknown 10/04/2024 2:44 PM EDT 10/04/2024 4:01 PM EDT [facility] LAB BLOOD ORDERABLES Final Re sult Performing Organization Address [facility] Co de Phone Number [facility] [address] [place] [phone] * (ABNORMAL) Urinalysis, Complete, with Reflex to Culture (09/01/2024 11:17 PM EDT) Only the most recent of2 resultswithin the time period is included. Color Urine Yellow [facility] Appearance Urine Clear [facility] PH 6.0 5.0 - 9.0 [facility] Glucose Urine UA >=1000(A) Negative mg/dL [facility] Urine Blood Small (1+)(A) Negative [facility] Specific Drift - Urine >=1.030(H) 1.005 - 1.025 [facility] Urine Protein 30 (1+)(A) Neg-Trace mg/dL [facility] Urine Ketones Negative Negative mg/dL [facility] Nitrite Urine Negative Negative [facility] Leukocyte Esterase Urine Negative Negative [facility] RBC Urine 6-10(A) 0 - 2 /HPF [facility] Urine WBC 0-5 0 - 5 /HPF [facility] Urine Squamous Epithelial Cell 0-2 0 - 2 /HPF [facility] Urine Bacteria None Seen None Seen [facility] Hyaline Casts, Urine 0-2 0 - 2 /LPF [facility] 09/01/2024 11:1 7 PM EDT 09/01/2024 11:23 PM EDT Narrative [facility] - 09/01/2024 11:32 PM EDT Urine, Clean Catch us Generic External Data Provider LAB URINE ORDERAB LES Final Result Performing Organization Address City/State/[facility] Co de Phone Number [facility] [address] [place] [phone] * CT Abdomen Pelvis w/ Contrast (09/01/2024 9:53 PM EDT) Anatomical Region Laterality Modality Body, Pelvis, Abdomen Computed T omography 09/01/2024 9:53 PM EDT Narrative 09/01/2024 9:56 PM EDT ? [facility] ?[address] ?[place] [address] ? CT Scan Report ? Signed ? Patient: Cade Whaley,Brandt ?MR#: MM ?? [id number] ? : 1960 ?Acct:[id number] ? Age/Sex: 63 / M ?ADM Date: 04/03/25 ? Loc: HO.ED ? Attending Dr: ? Ordering Physician: Peter Urbina ?? Date of Service: 09/01/24 ?? Procedure(s): CT abdomen pelvis w IV con ?? Accession Number(s): [id number] ? cc: [facility]; Peter Urbina ? Report Number: ?? [id number]: Total DLP = ??768.00 mGy-cm ? CLINICAL [...] ? DD/ 52 ? TD/TT: 09/01/242152 ? Tank Car Mechanic: ? Procedure Note Chastity Hastings - 09/01/[address] [address] [address] Scan Report Signed Patient: Brandt Nelson#: [id number] : 9Acct:[id number] Age/Sex: 63 / MADM Date: 09/01/24 Loc: HO.ED Attending Dr: Ordering Physician: Peter Urbina Date of Service: 09/01/24 Procedure(s): CT abdomen pelvis w IV con Accession Number(s): [id number] cc: [facility]; Peter Urbina Report Number: [id number]: Total DLP = 768.00 mGy-cm CLINICAL HISTORY: [...] in OV> 09/01/242154 DD/ 52 TD/TT: 09/01/242152 Tank Car Mechanic: us [facility] External Provider IMG CT PROCEDURES Final Result * (ABNORMAL) VENOUS BLOOD GAS (09/01/2024 4:00 PM EDT) VBG pH 7.35 7.32 - 7.43 [facility] Comment:METER #: [id number] additional_comment: Cb toucheg VBG PCO2 54 mmHg [facility] Comment:METER #: [id number] additional_comment: Cb toucheg VBG PO2 42 mmHg [facility] Comment:METER #: [id number] additional_comment: Cb toucheg VBG Base Excess 3.5 mmol/L [facility] Comment:METER #: [id number] additional_comment: Cb toucheg VBG HCO3 30(H) 22 - 26 mmol/L [facility] Comment:METER #: [id number] additional_comment: Cb toucheg O2 Sat, Braulio 68.0 % [facility] Comment:METER #: [id number] additional_comment: Cb toucheg 09/01/2024 4:00 PM EDT 09/01/2024 4:05 PM EDT Generic External Data Provider LAB BLOOD ORDERAB LES Final Result Performing Organization Address City/[facility]/ZIP Co de Phone Number [facility] [address] [place] [phone] * Beta-Hydroxybutyrate (09/01/2024 3:56 PM EDT) Beta-Hydroxybut yrate 0.27 0.02 - 0.27 mmol/L [facility] 09/01/2024 3:56 PM EDT 09/01/2024 3:58 PM EDT Generic External Data Provider LAB BLOOD ORDERAB LES Final Result Performing Organization Address [facility] Co de Phone Number [facility] [address] [place] [phone] * Magnesium (09/01/2024 3:56 PM EDT) Magnesium 1.8 1.6 - 2.6 mg/dL [facility] 09/01/2024 3:56 PM EDT 09/01/2024 3:58 PM EDT Generic External Data Provider LAB BLOOD ORDERAB LES Final Result Performing Organization Address [facility] de Phone Number [facility] [address] [place] [phone] * (ABNORMAL) Lipase (09/01/2024 3:56 PM EDT) Only the most recent of2 resultswithin the time period is included. Lipase 143(H) 8 - 78 U/L [facility] 09/01/2024 3:56 PM EDT 09/01/2024 3:58 PM EDT us Generic External Data Provider LAB BLOOD ORDERAB LES Final Result Performing Organization Address [facility] Co de Phone Number [facility] [address] [place] [phone] * Amylase (08/31/2024 3:30 PM EDT) Amylase 85 28 - 100 U/L [facility] Blood Venous blood specimen / Unknown 08/31/2024 3:30 PM EDT 08/31/2024 6:01 PM EDT Melisa Jacob MD LAB BLOOD ORDERABLES Final Result Performing Organization Address [facility] de Phone Number [facility] [address] [place] [phone] * (ABNORMAL) Hepatic Function Panel (08/31/2024 3:30 PM EDT) Bilirubin, Total 0.3 0.0 - 1.0 mg/dL [facility] Bilirubin, Direct 0.1 0.0 - 0.5 mg/dL [facility] Aspartate Amino Transferase 32 5 - 37 U/L [facility] Alanine Aminotransferase 41(H) 0 - 40 U/L [facility] Total Protein 8.1(H) 6.5 - 8.0 g/dL [facility] Albumin Level 4.0 3.5 - 5.0 g/dL [facility] Alkaline Phosphatase 56 39 - 117 U/L [facility] Blood Venous blood specimen / Unknown 08/31/2024 3:30 PM EDT 08/31/2024 6:01 PM EDT Melisa Jacob MD LAB BLOOD ORDERABLES Final Result [facility] [address] [place] [phone] * XR KUB and Upright 2 Views (08/31/2024 3:24 PM EDT) Anatomical Region Laterality Modality Radiographic Cheryl ging 08/31/2024 3:24 PM EDT Narrative 08/31/2024 3:48 PM EDT ?[facility] ?[address] ?[place] [address] ?XRay Report ? Signed ? Patient: Cade Whaley,Brandt ?MR#: MM ?? [id number] ? : 1960 ?Acct:[id number] ? Age/Sex: 63 / M ?ADM Date: 08/31/ ? Loc: HO.HHCX ? Attending Dr: Melisa Jacob MD ? Ordering Physician: Melisa Jacob MD ?? Date of Service: 08/31/24 ?? Procedure(s): XR KUB ?? Accession Number(s): [id number] ? cc: Melisa Jacob MD ? EXAMINATION: [...] DD/ 1524 ? TD/TT: 08/31/24 1530 ? Tank Car Mechanic: ? Procedure Note Darling, Chastity - 08/31/[address] [address] XRay Report Signed Patient: Brandt NelsonMR#: [id number] : 9Acct:[id number] Age/Sex: 63 / MADM Date: 08/31/24 Loc: HO.HHCX Attending Dr: Melisa Jacob MD Ordering Physician: Melisa Jacob MD Date of Service: 08/31/24 Procedure(s): XR KUB Accession Number(s): [id number] cc: Melisa Jacob MD EXAMINATION: XR ABDOMEN [...] 08/31/24 1545 DD/ 1524 TD/TT: 08/31/24 1530 Tank Car Mechanic: us Melisa Jacob MD IMG XR PROCEDURES Final Re sult * US KELLY COMPLETE (08/24/2024 4:45 PM EDT) Anatomical Region Laterality Modality Abdomen Ultrasound 08/24/2024 4:45 PM EDT Narrative 08/24/2024 4:46 PM EDT ? [facility] ?[address] ?[place] [address] ? Ultrasound Report ? Signed ? Patient: Cade WhaleyBrandt ?MR#: [id number] ?? [id number] ? : 1960 ?Acct:[id number] ? Age/Sex: 63 / M ?ADM Date: 08/23/24 ? Loc: HO.US ? Attending Dr: Nieves Cabrera MD ? Ordering Physician: Nieves Cabrera MD ?? Date of Service: 08/23/24 ?? Procedure(s): US KELLY complete ?? Accession Number(s): [id number] ? cc: Nieves Cabrera MD; Tg Milner [...] 1646 ? DD/ ? TD/TT: 08/24/245 ? Tank Car Mechanic: ? Procedure Note Donmark anthonyter, Image - 08/24/2024 [place] [address] Ultrasound Report Signed Patient: Brandt NelsonMR#: [id number] : 9Acct:[id number] Age/Sex: 63 / MADM Date: 08/23/24 Loc: HO.US Attending Dr: Nieves Cabrera MD Ordering Physician: Nieves Cabrera MD Date of Service: 08/23/24 Procedure(s): US KELLY complete Accession Number(s): [id number] cc: Nieves Cabrera MD; [facility] CLINICAL HISTORY: TOE PRESSURES, NON HEALING [...] in OV> 08/24/241645 DD/ 44 TD/TT: 08/24/241644 Tank Car Mechanic: [facility] External Provider IMG US PROCEDURES Final Result * (ABNORMAL) POCT HGB A1C (07/22/2024 10:04 AM EST) Hemoglobin A1C 8.2(A) 4.0 - 6.0 % QC Media Lot # [id number] Lot# Expiration Date Blood 07/22/2024 10:0 4 AM EST [facility] DIRECTOR PROSPECT POINT OF CARE TEST ENTER/EDIT ORDERABLES Final Result * POCT Glucose (07/22/2024 10:04 AM EST) Glucose Blood, POC 145 60 - 200 mg/dL QC Media Lot # [id number] Lot# Expiration Date Blood Capillary blood specimen / Unknown 07/22/2024 10:04 AM EST [facility] POINT OF CARE TEST ENTER/EDIT ORDERABLES Final Result * (ABNORMAL) Lipid Panel, Standard (01/22/2024 10:21 AM EDT) Triglycerides 291(H) <150 mg/dL [facility] Comment:Desirable Triglyceri de: less than 150 mg/dLBorderline High Triglyceride 150-199 mg/dLHigh Triglyceride: 200-499 mg/dLVery High Triglyceride: greater than or equal to 5OO mg/dL Cholesterol 166 <200 mg/dL [facility] Comment:Desirable Cholestero l: less than 200 mg/dLBorderline High Cholesterol: 200-239 mg/dLHigh Cholesterol: greater than 239 mg/dL LDL Cholesterol Calculated 77 <100 mg/dL [facility] Comment:Desirable LDL: less than 100 mg/dLNear Optimal/Above Optimal LDL: 110- 129 mg/dLBorderline High LDL: 130-159 mg/dLHigh LDL: 160-189 mg/dLVery High LDL: greater than or equal to 190 mg/dL HDL Cholesterol 31(L) >40 mg/dL [facility] Comment:Desirable HDL: great er than 40 mg/dL Note: This HDL assay may give artificially low results in patients with liver disease. Blood Venous blood specimen / Unknown 01/22/2024 10:21 AM EDT 01/22/2024 11:05 AM EDT [facility] LAB BLOOD ORDERABLES Final Re sult [facility] [address] [place] [phone] [phone] * Hepatitis C Antibody with Reflex to HCV, RNA, Quantitative, Real-Time PCR (09/01/2022 2:59 PM EDT) Hepatitis C Antibody NON-REACT DARY NON-REACT DARY [employer] Index 0.09 <1.00 [employer] Comment: HCV antibody was non-reactive. There is no laboratory evidence of HCV infection. In most cases, no further action is required. However, if recent HCV exposure is suspected, a test for HCV RNA (test code 77014) is suggested. For additional information please refer to http://education.Glownet/faq/OBS74r8 (This link is being provided for informational/ educational purposes only.) Blood Venous blood specimen / Unknown 09/01/2022 2:59 PM EDT 09/01/2022 2:59 PM EDT [facility] LAB BLOOD ORDERABLES Final Re sult Performing Organization Address City/[facility]/ZIP Co de Phone Number [facility] [address], [place] [address] [employer] [address] [place] [address] from Last 3 Months or Most Recently Relevant to Health Maintenance Insurance [facility] [employer] (HMO D-SNP) [place] [id number] Care Teams Welfare Adviser Relationship Specialty Start Date End Date Tg Milner FNP [address] [place] [id number] PCP - General Family Medicine 04/28/22
--- OUTSIDE RECORDS SUMMARY | 2024-10-07 21:37 | XMS_ITS | Encounter Summary ---
Author Organization [employer] Address [address] [place] [address] Care Team Providers Care Manager Loss Prevention Name Role Phone Tg Milner [facility] Primary Care Provider [phone] Encounter Details Date Type Department Care Team (Late st Contact Info) Description 10/07/2024 Orders Only GENERIC EXTERNAL DATA [...] Description 10/19/2024 11:15 AM EDT Office Visit [facility] [address] [place] [address] [place] FNP [address] [place], [place] [phone] documented as of this encounter Procedures Procedure Name Priority Date/Time Associated Diagnosis Comments CBC WITH AUTO DIFFERENTIAL Routine 10/07/2024 8:49 PM EDT COMPREHENSIVE METABOLIC PANEL Routine 10/07/2024 8:49 PM EDT documented in this encounter Results * (ABNORMAL) Comprehensive Metabolic Panel (10/07/2024 8:49 PM EDT) Sodium 137 135 - 145 mmol/L [facility] Potassium 4.4 3.3 - 5.1 mmol/L [facility] Chloride 101 96 - 108 mmol/L [facility] Carbon Dioxide 26 22 - 29 mmol/L [facility] Anion Gap 14 12 - 20 [facility] Urea Nitrogen (BUN) 35(H) 9 - 16 mg/dL [facility] Creatinine, Serum 2.02(H) 0.5 - 1.4 mg/dL [facility] Creatinine Clr Calc Pharmacy 45.3 [facility] Comment:eGFR (calculated fro m the MDRD study equation) and eCrCl(calculated from the Cockcroft-Gault equation) are based ondifferent parameters and may not yield comparable results.If eCrCl result is absurd, please check patient'sheight/weight. Estimated Glomerular Filt Rate 33 [facility] Comment:Chronic Kidney Disea se: Estimated GFR < 60 mL/min/[id number] Kidney Disease: Estimated GFR < 15 mL/min/1.73m2 Glucose 204(H) 60 - 115 mg/dL [facility] Calcium 9.8 8.4 - 10.2 mg/dL [facility] Bilirubin, Total 0.3 0.0 - 1.0 mg/dL [facility] Aspartate Amino Transferase 23 5 - 37 U/L [facility] Alanine Aminotransferase 23 0 - 40 U/L [facility] Total Protein 8.6(H) 6.5 - 8.0 g/dL [facility] Albumin Level 4.1 3.5 - 5.0 g/dL [facility] Alkaline Phosphatase 67 39 - 117 U/L [facility] 10/07/2024 8:49 PM EDT 10/07/2024 8:52 PM EDT us Generic External Data Provider LAB BLOOD ORDERAB LES Final Result [facility] [address] [place] [phone] * (ABNORMAL) CBC auto differential (10/07/2024 8:49 PM EDT) White Blood Count 12.0(H) 4.8 - 10.8 X10*3/uL [facility] Red Blood Count 4.99 4.60 - 5.80 X10*6/uL [facility] Hemoglobin 14.2 14.0 - 18.0 g/dl [facility] Hematocrit 42.1 42.0 - 52.0 % [facility] Mean Corpuscular Volume 84.4 80.0 - 98.0 fL [facility] Mean Corpuscular Hemoglobin 28.5 27.0 - 33.0 pg [facility] Mean Corpuscular HGB Conc 33.7 31.0 - 36.0 g/dl [facility] Red Cell Distribution Width 13.7 11.0 - 16.0 % [facility] Platelet Count 252 160 - 400 X10*3/uL [facility] Mean Platelet Volume 9.7 9.4 - 12.4 fL [facility] Neutrophils Percent Auto 71.7 45 - 73 % [facility] Imm Gran Pct Auto 0.4 0.0 - 0.4 % [facility] Lymphocytes Percent Auto 16.5(L) 20 - 40 % [facility] Monocytes Percent Auto 8.6 2 - 11 % [facility] Eosinophils Percent Auto 2.2 0 - 4 % [facility] Basophils Percent Auto 0.6 0 - 2 % [facility] NRBC Pct Auto 0.0 0.0 - 0.2 /100WBC [facility] Neutrophils Absolute Auto 8.6(H) 2.0 - 8.3 x10*3/uL [facility] Imm Gran Abs Auto 0.05(H) 0.00 - 0.03 X10*3/uL [facility] Lymphocytes Absolute Auto 2.0 1.2 - 4.9 X10*3/uL [facility] Monocytes Absolute Auto 1.0 0.1 - 1.2 X10*3/uL [facility] Eosinophils Absolute Auto 0.3 0.0 - 0.4 X10*3/uL [facility] Basophils Absolute Auto 0.1 0.0 - 0.2 X10*3/uL [facility] NRBC Abs Auto 0.000 0.0 - 0.012 X10*3/uL [facility] 10/07/2024 8:49 PM EDT 10/07/2024 8:52 PM EDT us Generic External Data Provider LAB BLOOD ORDERAB LES Final Result [facility] [address] [place] [phone] documented in this encounter Visit Diagnoses Not on filedocumented in this encounter Additional Health Concerns Assessment Noted Time PHQ-9 Depression Total Score: 0 02/21/20 25 10:03 AM EST documented as of this encounter Care Teams Manager Loss Prevention Relationship Specialty Start Date End Date [place] KRISTY Mas [address] [place] [phone] PCP - General Family Medicine 04/28/22 documented as of this encounter
--- OUTSIDE RECORDS SUMMARY | 2024-10-07 21:37 | XMS_ITS | Encounter Summary ---
Author Organization [facility] Address [address] [place] [address] Care Team Providers Care Test Tube Maker Name Role Phone Tg Milner [facility] Primary Care Provider [phone] Reason for Visit * Reason Comments Med Refill Encounter Details Date Type Department Care Team (Late st Contact Info) Description 06/18/2022 Refill [facility] [address] [place] [address] Tg Milner [facility] [address] [place] [address] Type 2 diabetes mellitus without complication, without [...] 11:15 AM EDT Office Visit [facility] [address] [place] [phone] Tg Milner FNP [address] [place] [address] documented as of this encounter Visit Diagnoses Diagnosis Type 2 diabetes mellitus without complication, without long-term current use of insulin (CMS/HCC) documented in this encounter Care Teams Test Tube Maker Relationship Specialty Start Date End Date Tg Milner FNP [address] [place] [address] PCP - General Family Medicine 04/28/22 documented as of this encounter
--- OUTSIDE RECORDS SUMMARY | 2024-10-07 21:37 | XMS_ITS | Clinical Summary ---
Author Organization [facility] Address [address] [place] [address] Phone Care Team Providers Care Bottom Presser Name Role Phone [facility] Primary Care Provider Allergies No known active allergies Medications acetaminophen [...] EDT - 09/13/2024 6:03 AM EDT Emergency [facility] Emergency [address] [place] [address] Paloma Perry MD Hemorrhagic cystitis (Primary Dx); [...] microscopic and culture (09/13/2024 2:32 AM EDT) [facility] Specific [place] Urine 1.020 1.003 - 1.030 LAB URINALYSIS - AUTOMATED METHOD 09/13/2024 3:25 AM [facility] pH, Urine 8.0 5.0 - 8.0 pH LAB URINALYSIS - AUTOMATED METHOD 09/13/2024 3:25 AM [facility] Leukocytes, Urine Moderate(A) Negative LAB URINALYSIS - AUTOMATED METHOD 09/13/2024 3:25 AM [facility] Nitrite, Urine Positive(A) Negative LAB URINALYSIS - AUTOMATED METHOD 09/13/2024 3:25 AM [facility] Protein, Urine >=300(A) <=Trace mg/dL LAB URINALYSIS - AUTOMATED METHOD 09/13/2024 3:25 AM [facility] Glucose, Urine >=1000(A) Negative mg/dL LAB URINALYSIS - AUTOMATED METHOD 09/13/2024 3:25 AM EDT [facility] Ketones, Urine Negative Negative mg/dL LAB URINALYSIS - AUTOMATED METHOD 09/13/2024 3:25 AM [facility] Urobilinogen , Urine 0.2 0.2 - 1.0 mg/dL LAB URINALYSIS - AUTOMATED METHOD 09/13/2024 3:25 AM [facility] Bilirubin, Urine Small(A) Negative LAB URINALYSIS - AUTOMATED METHOD 09/13/2024 3:25 AM [facility] Blood, Urine Large(A) Negative LAB URINALYSIS - AUTOMATED METHOD 09/13/2024 3:25 AM [facility] RBC, Urine 100(H) 0 - 4 /HPF 09/13/2024 3:25 AM [facility] WBC, Urine 100(H) 0 - 4 /HPF 09/13/2024 3:25 AM [facility] Squamous Epithelial, Urine 4 0 - 60 /LPF 09/13/2024 3:25 AM [facility] Bacteria, Urine Moderate(A) Negative /HPF 09/13/2024 3:25 AM [facility] Hyaline Casts, Urine 4(H) 0 - 3 /LPF 09/13/2024 3:25 AM [facility] Urine Indwelling urinary catheter / Unknown Non-blood Collection / Unknown 09/13/2024 2:32 AM EDT 09/13/2024 3:03 AM EDT us Paloma Perry MD LAB URINE ORDERABLES Fin al Result [facility] [address] [place] [address], * Kenyon urine culture tube (09/13/2024 2:32 AM EDT) Extra Tube Hold for add-ons. 09/13/2024 5:01 AM EDT [facility] Comment:Auto resulted. Urine Indwelling urinary catheter / Unknown Non-blood Collection / Unknown 09/13/2024 2:32 AM EDT 09/13/2024 3:03 AM EDT us Paloma Perry MD LAB URINE ORDERABLES Fin al Result [facility] [address] [place] [address], * (ABNORMAL) Culture urine (09/13/2024 2:32 AM EDT) Pathologist [facility] Culture, Urine >100,000 CFU/mL Proteus mirabilis(A) JEZ 09/16/2024 8:51 AM EDT [facility] Comment: Edited result: Previously reported as Proteus species on 09/14/2024 at 1010 EDT. Culture, Urine 10,000-49,000 CFU/mL Klebsiella pneumoniae ssp pneumoniae(A) JEZ 09/16/2024 8:51 AM EDT [facility] Comment: The organism value for [...] MICROBIOLOGY - GENER AL ORDERABLES Final Result [facility] [address] [place] [address], [place] [phone] * Respiratory virus panel molecular study (09/13/2024 1:36 AM EDT) [facility] Adenovirus Detection by PCR Not Detected Not Detected LAB MICROBIOLOGY METHOD 09/13/2024 2:48 AM EDT [facility] Influenza A PCR Not Detected Not Detected LAB MICROBIOLOGY METHOD 09/13/2024 2:48 AM EDT [facility] Influenza B PCR Not Detected Not Detected LAB MICROBIOLOGY METHOD 09/13/2024 2:48 AM EDT [facility] Coronavirus 229E Not Detected Not Detected LAB MICROBIOLOGY METHOD 09/13/2024 2:48 AM EDT [facility] Coronavirus HKU1 Not Detected Not Detected LAB MICROBIOLOGY METHOD 09/13/2024 2:48 AM EDT [facility] Coronavirus OC43 Not Detected Not Detected LAB MICROBIOLOGY METHOD 09/13/2024 2:48 AM EDT [facility] Coronavirus NL63 Not Detected Not Detected LAB MICROBIOLOGY METHOD 09/13/2024 2:48 AM EDT [facility] Parainfluenza Virus 1 Not Detected Not Detected LAB MICROBIOLOGY METHOD 09/13/2024 2:48 AM EDT [facility] Parainfluenza Virus 2 Not Detected Not Detected LAB MICROBIOLOGY METHOD 09/13/2024 2:48 AM EDT [facility] Parainfluenza Virus 3 Not Detected Not Detected LAB MICROBIOLOGY METHOD 09/13/2024 2:48 AM EDT [facility] Parainfluenza Virus 4 Not Detected Not Detected LAB MICROBIOLOGY METHOD 09/13/2024 2:48 AM EDT [facility] RSV PCR Not Detected Not Detected LAB MICROBIOLOGY METHOD 09/13/2024 2:48 AM EDT [facility] Human Metapneumovirus A and B Not Detected Not Detected LAB MICROBIOLOGY METHOD 09/13/2024 2:48 AM EDT [facility] Rhinovirus/Entero virus Not Detected Not Detected LAB MICROBIOLOGY METHOD 09/13/2024 2:48 AM EDT [facility] Bordetella pertussis Not Detected Not Detected LAB MICROBIOLOGY METHOD 09/13/2024 2:48 AM EDT [facility] Bordetella parapertussis Not Detected Not Detected LAB MICROBIOLOGY METHOD 09/13/2024 2:48 AM EDT [facility] Mycoplasma pneumo by PCR Not Detected Not Detected LAB MICROBIOLOGY METHOD 09/13/2024 2:48 AM EDT [facility] Chlamydia pneumoniae Not Detected Not Detected LAB MICROBIOLOGY METHOD 09/13/2024 2:48 AM EDT [facility] SARS COV-2 Not Detected Not Detected LAB MICROBIOLOGY METHOD 09/13/2024 2:48 AM EDT [facility] Swab Both anterior nares / Unknown Non-blood Collection / Unknown 09/13/2024 1:36 AM EDT 09/13/2024 1:50 AM EDT Narrative [facility] - 09/13/2024 2:48 AM EDT Testing was performed using the [employer] Respiratory Pathogen PCR Assay. All results must [...] detection. Paloma Perry MD LAB MICROBIOLOGY - [facility] AL ORDERABLES Final Result [facility] [address] [place] [address], * ECG-Annotated (09/13/2024) us Provider Onbase ECG ORDERABLES Final Result * (ABNORMAL) CBC auto differential (09/12/2024 7:05 PM EDT) [facility] WBC 6.0 4.8 - 10.8 K/mcL LAB HEMETOLOGY METHOD 09/12/2024 7:44 PM [facility] RBC 4.70 4.50 - 5.50 M/mcL LAB HEMETOLOGY METHOD 09/12/2024 7:44 PM [facility] Hemoglobin 13.1(L) 13.5 - 17.5 g/dL LAB HEMETOLOGY METHOD 09/12/2024 7:44 PM [facility] Hematocrit 39.6(L) 42.0 - 54.0 % LAB HEMETOLOGY METHOD 09/12/2024 7:44 PM [facility] MCV 85.0 79.0 - 98.0 FL LAB HEMETOLOGY METHOD 09/12/2024 7:44 PM [facility] MCH 28.1 27.0 - 32.0 pcg LAB HEMETOLOGY METHOD 09/12/2024 7:44 PM [facility] MCHC 33.1 32.0 - 37.0 g/dL LAB HEMETOLOGY METHOD 09/12/2024 7:44 PM [facility] RDW 13.9 11.0 - 15.0 % LAB HEMETOLOGY METHOD 09/12/2024 7:44 PM [facility] Platelets 237 130 - 400 K/mcL LAB HEMETOLOGY METHOD 09/12/2024 7:44 PM [facility] MPV 10.2 7.0 - 11.0 FL LAB HEMETOLOGY METHOD 09/12/2024 7:44 PM [facility] NRBC 0.0 <1.0 % LAB HEMETOLOGY METHOD 09/12/2024 7:44 PM [facility] NRBC Absolute 0.00 <0.10 K/mcL LAB HEMETOLOGY METHOD 09/12/2024 7:44 PM [facility] Neutrophils Relative 52.6 % LAB HEMETOLOGY METHOD [facility]/12[facility]24 [facility] Lymphocytes Relative 26.1 % LAB HEMETOLOGY METHOD 09/12/2024 7:44 PM [facility] Monocytes Relative 14.9 % LAB HEMETOLOGY METHOD 09/12/2024 7:44 PM [facility] Eosinophils Relative 4.4 % LAB HEMETOLOGY METHOD 09/12/2024 7:44 PM [facility] Basophils Relative 1.2 % LAB HEMETOLOGY METHOD 09/12/2024 7:44 PM [facility] Immature Granulocytes Relative 0.8 % LAB HEMETOLOGY METHOD 09/12/2024 7:44 PM [facility] Neutrophils Absolute 3.14 1.50 - 7.00 K/mcL LAB HEMETOLOGY METHOD 09/12/2024 7:44 PM [facility] Lymphocytes Absolute 1.56 1.00 - 5.00 K/mcL LAB HEMETOLOGY METHOD 09/12/2024 7:44 PM [facility] Monocytes Absolute 0.89 0.20 - 1.00 K/mcL LAB HEMETOLOGY METHOD 09/12/2024 7:44 PM [facility] Eosinophils Absolute 0.26 0.00 - 0.50 K/mcL LAB HEMETOLOGY METHOD 09/12/2024 7:44 PM [facility] Basophils Absolute 0.07 0.00 - 0.20 K/mcL LAB HEMETOLOGY METHOD 09/12/2024 7:44 PM [facility] Immature Granulocytes Absolute 0.05(H) 0.00 - 0.03 K/mcL LAB HEMETOLOGY METHOD 09/12/2024 7:44 PM [facility] Blood Venous blood specimen / Unknown Venipuncture / Unknown 09/12/2024 7:05 PM EDT 09/12/2024 7:34 PM EDT Paloma Perry MD LAB BLOOD ORDERABLES Fin al Result Performing Organization Address [facility]/ZIP Co de Phone Number [facility] [address] [place] [address], [place] [phone] * Magnesium (09/12/2024 7:05 PM EDT) Pathologist [facility] Magnesium 1.9 1.9 - 2.6 mg/dL LAB CHEMISTRY METHOD 09/12/2024 8:05 PM EDT [facility] Blood Venous blood specimen / Unknown Venipuncture / Unknown 09/12/2024 7:05 PM EDT 09/12/2024 7:34 PM EDT Paloma Perry MD LAB BLOOD ORDERABLES Fin al Result Performing Organization Address [facility]/ZIP Co de Phone Number [facility] [address] [place] [address], [place] [phone] * (ABNORMAL) Basic metabolic panel (09/12/2024 7:05 PM EDT) [facility] Sodium 132(L) 133 - 145 mmol/L LAB CHEMISTRY METHOD 09/12/2024 8:05 PM EDT [facility] Potassium 4.3 3.5 - 5.5 mmol/L LAB CHEMISTRY METHOD 09/12/2024 8:05 PM EDT [facility] Chloride 100 96 - 110 mmol/L LAB CHEMISTRY METHOD 09/12/2024 8:05 PM EDT [facility] CO2 25 21 - 32 mmol/L LAB CHEMISTRY METHOD 09/12/2024 8:05 PM EDT [facility] Anion Gap 7 3 - 11 LAB CHEMISTRY METHOD 09/12/2024 8:05 PM EDT [facility] Glucose 216(H) 70 - 100 mg/dL LAB CHEMISTRY METHOD 09/12/2024 8:05 PM EDT [facility] BUN 31(H) 5 - 25 mg/dL LAB CHEMISTRY METHOD 09/12/2024 8:05 PM T [facility] Creatinine 1.87(H) 0.70 - 1.30 mg/dL LAB CHEMISTRY METHOD 09/12/2024 8:05 PM EDT [facility] eGFR 39(L) >=60 mL/min/1. 73m2 LAB CHEMISTRY METHOD 09/12/2024 8:05 PM EDT [facility] Comment:Calculation based on the??Chronic Kidney Disease Epidemiology Collaboration (CKD-EPI) equation refit??without adjustment for race. BUN/Creatinine Ratio 16.6 LAB CHEMISTRY METHOD 09/12/2024 8:05 PM EDT [facility] Calcium 9.7 8.5 - 10.5 mg/dL LAB CHEMISTRY METHOD 09/12/2024 8:05 PM EDT [facility] Blood Venous blood specimen / Unknown Venipuncture / Unknown 09/12/2024 7:05 PM EDT 09/12/2024 7:34 PM EDT us Paloma Perry MD LAB BLOOD ORDERABLES Fin al Result [facility] [address] [place] [address], * ECG 12 lead (09/12/2024 7:03 PM EDT) Ventricular Rate ECG 111 BPM GEMUSE Atrial Rate 111 BPM GEMUSE P-R Interval 194 ms GEMUSE QRS Duration 118 ms GEMUSE Q-T Interval 342 ms GEMUSE QTc 465 ms GEMUSE P Wave [place] 61 degrees GEMUSE R [place] -71 degrees GEMUSE T [place] 36 degrees GEMUSE ECG Interpretation Sinus tachycardia Right bundle branch block Left anterior fascicular block Bifascicular block Abnormal ECG No previous ECGs available Confirmed by Arnav GARCIA YUFENG ([id number]) on 09/12/2024 7:11:46 PM GEMUSE 09/12/2024 7:03 PM EDT 09/12/2024 7:11 PM EDT us Paloma Perry MD ECG ORDERABLES Final Re sult GEMUSE from Last 3 Months Insurance [facility] [employer] Member Subscriber Plan / Payer (Ef fective 2024-Present) Name:Brandt Nelson Relation to Subscriber:Self Name:Brandt Nelson Payer ID:[id number] Group ID:Not on file Type:Not on file Address: [place] [facility] [place] [address] Care Teams Bottom Presser Relationship Specialty Start Date End Date [facility] [address] [address] PCP - General 01/05/24
--- OUTSIDE RECORDS SUMMARY | 2024-10-07 21:37 | XMS_ITS | Encounter Summary ---
Author Organization [facility] [facility] Address [address] [place] [address] Care Team Providers Care Chief Pilot Name Role Phone AnniaTg [facility] Primary Care Provider [phone] Encounter Details Date Type Department Care Team (Late st Contact Info) Description 07/10/2022 Orders Only [facility] [address] [place] [phone] Chante Mackey LPN Social History Tobacco Use [...] Description 10/19/2024 11:15 AM EDT Office Visit [facility] [address] [place] [phone] Tg Milner [facility] [address] [place] [address] documented as of this encounter Visit Diagnoses Not on filedocumented in this encounter Care Teams Chief Pilot Relationship Specialty Start Date End Date Tg Milner FNP [address] [place] [address] PCP - General Family Medicine 04/28/22 documented as of this encounter
--- OUTSIDE RECORDS SUMMARY | 2024-10-07 21:37 | XMS_ITS | Encounter Summary ---
Author Organization [employer] Address [address] [place] [address] Care Team Providers Care Cargo Supervisor Name Role Phone Tg Milner [facility] Primary Care Provider [phone] Encounter Details Date Type Department Care Team (Late st Contact Info) Description 04/17/2023 Abstract [facility] [address] [place] [address] Addis Hathaway Social History Tobacco Use Types [...] 10/19/2024 11:15 AM EDT Office Visit [facility] [address] [place] [address] Tg Milner FNP [address] [place] [address] documented as of this encounter Visit Diagnoses Not on filedocumented in this encounter Additional Health Concerns Assessment Noted Time PHQ-9 Depression Total Score: 0 11/25/19 23 3:32 PM EDT documented as of this encounter Care Teams Cargo Supervisor Relationship Specialty Start Date End Date Tg Milner FNP [address] [place] [address] PCP - General Family Medicine 04/28/22 documented as of this encounter
--- OUTSIDE RECORDS SUMMARY | 2024-10-07 21:37 | XMS_ITS | Encounter Summary ---
Author Organization [employer] Address [address] [facility] [address] [place] [address] Care Team Providers Care Insurance Representative Name Role Phone Annia, [facility] Primary Care Provider [phone] Reason for Visit * Reason Comments Med Refill Encounter Details Date Type Department Care Team ([facility] st Contact Info) Description 08/31/[address] [facility] [address] [place] [address] [facility] [address] [place] [address] Primary hypertension Social History Tobacco Use Types [...] 10/19/2024 11:15 AM EDT Office [address] [facility] [address] [place] [address] Tg Milner FNP [address] [place] [address] documented as of this encounter Visit Diagnoses Diagnosis Primary hypertension Unspecified essential hypertension documented in this encounter Additional Health Concerns Assessment Noted Time PHQ-9 Depression Total Score: 0 07/22/19 25 10:03 AM EST documented as of this encounter Care Teams Insurance Representative Relationship Specialty Start Date End Date Tg Milner FNP [address] [place] [address] PCP - General Family Medicine 04/28/22 documented as of this encounter
--- OUTSIDE RECORDS SUMMARY | 2024-10-07 21:37 | XMS_ITS | Encounter Summary ---
Author Organization [employer] [facility] Address [address] [place] [address] [address], [place] [address] Care Team Providers Care Sifter And Miller Name Role Phone [facility] Primary Care Provider [phone] Reason for Visit * Reason Comments Med Refill Encounter Details Date Type Department Care Team (Late Contact Info) Description 12/22/2022 Refill [facility] [address] [place] [address] [facility] [address] [place] [address] Primary hypertension Social History Tobacco Use Types [...] EDT Office Visit [facility] [address] [place] [phone] Tg Milner FNP [address] [place] [address] documented as of this encounter Visit Diagnoses Diagnosis Primary hypertension Unspecified essential hypertension documented in this encounter Additional Health Concerns Assessment Noted Time PHQ-9 Depression Total Score: 0 11/25/19 23 3:32 PM EDT documented as of this encounter Care Teams Sifter And Miller Relationship Specialty Start Date End Date Tg Milner FNP [address] [place] [address] PCP - General Family Medicine 04/28/22 documented as of this encounter
--- OUTSIDE RECORDS SUMMARY | 2024-10-07 21:37 | XMS_ITS | Encounter Summary ---
Author Organization [employer] Address [address] [place] [address] Care Team Providers Care Oracle Iam Consultant Name Role Phone Tg Milner [employer]PRACTICE [employer]NER Primary Care Provider [phone] Reason for Visit * Reason Comments Med Refill Encounter Details Date Type Department Care Team ([facility] st Contact Info) Description 10/04/2024 Refill [facility] [address] [place] [address] Melisa Jacob MD [address] [place] [address] Pain in right lumbar region of back; [...] 10/19/2024 11:15 AM EDT Office Visit [facility] [address] [place] [address] Tg Milner FNP [address] [place] [address] documented as of this encounter Visit Diagnoses Diagnosis Pain in right lumbar region of back Right flank pain Abdominal pain, unspecified site documented in this encounter Additional Health Concerns Assessment Noted Time PHQ-9 Depression Total Score: 0 07/22/19 25 10:03 AM EST documented as of this encounter Care Teams Oracle Iam Consultant Relationship Specialty Start Date End Date Tg Milner FNP [address] [place] [address] PCP - General Family Medicine 04/28/22 documented as of this encounter
--- OUTSIDE RECORDS SUMMARY | 2024-10-07 21:37 | XMS_ITS | Encounter Summary ---
Author Organization [employer] Address [address] [facility] [address] [place] [address] Care Team Providers Care Hearing Aid Specialist Name Role Phone Tg Milner [facility] Primary Care Provider [phone] Encounter Details Date Type Department Care Team ([facility] st Contact Info) Description 10/05/2024 Orders Only GENERIC EXTERNAL DATA DEPARTMENT [...] Description 10/19/2024 11:15 AM EDT Office Visit [facility] [address] [place] [address] Rex[place]Tg FNP [address] [place] [address] documented as of this encounter Procedures Procedure Name Priority Date/Time Associated Diagnosis Comments URINE PROTEIN, TOTAL, RANDOM (W/O CREATININE) Routine 10/05/2024 2:26 PM EDT CREATININE, RANDOM URINE Routine 10/05/2024 2:26 PM EDT URINALYSIS, COMPLETE Routine 10/05/2024 2:26 PM EDT BASIC METABOLIC PANEL Routine 10/05/2024 2:17 PM EDT documented in this encounter Results * (ABNORMAL) Urine Protein, Total, Random without Creatinine (10/05/2024 2:26 PM EDT) Protein, Total, Random Urine 41(H) <12 mg/dL [facility] 10/05/2024 2:26 PM EDT 10/05/2024 4:08 PM EDT us Generic External Data Provider LAB URINE ORDERAB LES Final Result [facility] [address] [place] [address] [phone] * Creatinine, Random Urine (10/05/2024 2:26 PM EDT) Creatinine, Urine 52.88 mg/dL [facility] 10/05/2024 2:26 PM EDT 10/05/2024 4:08 PM EDT us Generic External Data Provider LAB URINE ORDERAB LES Final Result Performing Organization Address [facility] Co de Phone Number [facility] [address] [place] [address] [phone] * (ABNORMAL) Urinalysis Complete (10/05/2024 2:26 PM EDT) Color Urine Yellow [facility] Appearance Urine Turbid [facility] PH 7.5 5.0 - 9.0 [facility] Glucose Urine UA >=1000(A) Negative mg/dL [facility] Urine Blood Moderate (2+)(A) Negative [facility] Specific [place] - Urine >=1.030(H) 1.005 - 1.025 [facility] Urine Protein 30 (1+)(A) Neg-Trace mg/dL [facility] Urine Ketones Negative Negative mg/dL [facility] Nitrite Urine Negative Negative [facility] Leukocyte Esterase Urine Large (3+)(A) Negative [facility] RBC Urine 11-20(A) 0 - 2 /HPF [facility] Urine WBC >50(A) 0 - 5 /HPF [facility] Urine Squamous Epithelial Cell 0-2 0 - 2 /HPF [facility] Urine Bacteria 4+ None Seen [facility] Hyaline Casts, Urine >20 0 - 2 /LPF [facility] Urine Yeast Present [facility] 10/05/2024 2:26 PM EDT 10/05/2024 4:08 PM EDT us Generic External Data Provider LAB URINE ORDERAB LES Final Result Performing Organization Address [facility] Co de Phone Number [facility] [address] [place] [address] [phone] * (ABNORMAL) Basic Metabolic Panel (10/05/2024 2:17 PM EDT) Sodium 137 135 - 145 mmol/L [facility] Potassium 4.7 3.3 - 5.1 mmol/L [facility] Chloride 101 96 - 108 mmol/L [facility] Carbon Dioxide 26 22 - 29 mmol/L [facility] Anion Gap 15 12 - 20 [facility] Urea Nitrogen (BUN) 31(H) 9 - 16 mg/dL [facility] Creatinine, Serum 1.82(H) 0.5 - 1.4 mg/dL [facility] Estimated Glomerular Filt Rate 38 [facility] Comment:Chronic Kidney Disea se: Estimated GFR < 60 mL/min/[id number] Kidney Disease: Estimated GFR < 15 mL/min/1.73m2 Glucose 196(H) 60 - 115 mg/dL [facility] Calcium 9.8 8.4 - 10.2 mg/dL [facility] 10/05/2024 2:17 PM EDT 10/05/2024 4:13 PM EDT us Generic External Data Provider LAB BLOOD ORDERAB LES Final Result Performing Organization Address [facility] Co de Phone Number [facility] [address] [place] [address] [phone] documented in this encounter Visit Diagnoses Not on filedocumented in this encounter Additional Health Concerns Assessment Noted Time PHQ-9 Depression Total Score: 0 07/22/19 25 10:03 AM EST documented as of this encounter Care Teams Hearing Aid Specialist Relationship Specialty Start Date End Date Tg Milner FNP [address] [place] [address] PCP - General Family Medicine 04/28/22 documented as of this encounter
--- OUTSIDE RECORDS SUMMARY | 2024-10-07 21:37 | XMS_ITS | Encounter Summary ---
Author Organization [employer] [facility] Address [address] [place] [address] [address] [address] Care Team Providers Care Student Support Services Director Name Role Phone [place] [facility] Primary Care Provider [phone] Reason for Visit * Reason Comments Med Refill Encounter Details Date Type Department Care Team (Late st Contact Info) Description 12/25/2022 Refill [facility] [address] [place] [id number] [facility] [address] [place], [place] [phone] Type 2 diabetes mellitus without complication, without long-term current use of insulin ([facility]) Social History Tobacco Use Types [...] Description 10/19/2024 11:15 AM EDT Office Visit [facility] [address] [place] [address] [facility] [address] [place], [place] [phone] documented as of this encounter Visit Diagnoses Diagnosis Type 2 diabetes mellitus without complication, without long-term current use of insulin ([facility]) documented in this encounter Additional Health Concerns Assessment Noted Time PHQ-9 Depression Total Score: 0 11/25/19 23 3:32 PM EDT documented as of this encounter Care Teams Student Support Services Director Relationship Specialty Start Date End Date Tg Milner FNP [address] [place] [address] PCP - General Family Medicine 04/28/22 documented as of this encounter
--- OUTSIDE RECORDS SUMMARY | 2024-10-07 21:37 | XMS_ITS | Encounter Summary ---
Author Organization [employer] Address [address] [facility] 7t [place] [address] Care Team Providers Care Director Ambulatory Name Role Phone [place] [facility] Primary Care Provider [phone] Reason for Visit * Reason Comments Med Refill Encounter Details Date Type Department Care Team ([facility] st Contact Info) Description 07/01/2023 Refill [facility] [address] [place] [address] [facility] [address] [place] [address] Primary osteoarthritis of right knee Social History Tobacco Use Types Packs/Day Years Used Date Smoking Tobacco: Former Cigarettes Smokeless Tobacco: Never Alcohol Use Standard Drinks/Week Comments Never 0 (1 standard drink = 0.6 oz pur e alcohol) Depression Answer Date Recorded Patient Health Questionnaire-9 Score 0 11/24/2022 Housing Stability Answer Date Recorded What is your housing situation today? I have venra gee 03/19/[address] you [...] the past 12 months, has t he [employer], gas, oil or water company threatened to [...] Description 10/19/2024 11:15 AM EDT Office Visit [facility] [address] [place] [address] Tg Milner FNP [address] [place] [address] documented as of this encounter Visit Diagnoses Diagnosis Primary osteoarthritis of right knee documented in this encounter Additional Health Concerns Assessment Noted Time PHQ-9 Depression Total Score: 0 11/25/19 23 3:32 PM EDT documented as of this encounter Care Teams Director Ambulatory Relationship Specialty Start Date End Date Tg Milner FNP [address] [place] [address] PCP - General Family Medicine 04/28/22 documented as of this encounter
--- OUTSIDE RECORDS SUMMARY | 2024-10-07 21:37 | XMS_ITS | Encounter Summary ---
Author Organization [employer] Address [address] [facility] 7[address] [place] [address] Care Team Providers Care Supervisor Briar [employer] Name Role Phone Tg Milner [facility] Primary Care Provider [phone] Reason for Visit * Reason Onset Date Comments Medication Question 05/06/2022 new script 05/06/2022 Encounter Details Date Type Department Care Team ([facility] st Contact Info) Description 05/06/2022 Telephone [facility] [address] [place] [address] [place] [facility] [address] [place] [address] Medication Question; new script Social History Tobacco [...] Trulicity .75, 1.5 or 3mg. PCP ESTELLA [place] * Telephone Encounter - Nany Gann - 05/06/2022 2:08 PM EST Tc from pt requesting active medications. Pt will be traveling to [place] as of May 19nd unsure on the exact date that will be returning. Stated will be returning after the new years but has yet to establish a date. PCP ESTELLA [place] documented in this encounter Plan of Treatment Upcoming Encounters Date Type Department Care Team (Late st Contact Info) Description 10/19/2024 11:15 AM EDT Office Visit [facility] [address] [place] [address] Tg Milner FNP [address] [place] [address] documented as of this encounter Visit Diagnoses Diagnosis Type 2 diabetes mellitus without complication, without long-term current use of insulin ([facility]) documented in this encounter Care Teams Supervisor [employer] Relationship Specialty Start Date End Date Tg Milner FNP [address] [place] [address] PCP - General Family Medicine 04/28/22 documented as of this encounter
--- OUTSIDE RECORDS SUMMARY | 2024-10-07 21:37 | XMS_ITS | Encounter Summary ---
Author Organization [facility] Address [address] [place] [address] [address], [place] [address] Care Team Providers Care Division Chief Name Role Phone Annia, [facility] Primary Care Provider [phone] Encounter Details Date Type Department Care Team (Late st Contact Info) Description 06/03/2022 Telephone [facility] [address] [place] [address] [place] [facility] [address] [place] [address] Social History Tobacco Use Types Packs/Day Years [...] Description 10/19/2024 11:15 AM EDT Office Visit [facility] [address] [place] [address] [facility] [address] [place] [address] documented as of this encounter Visit Diagnoses Not on filedocumented in this encounter Care Teams Division Chief Relationship Specialty Start Date End Date Tg Milner [facility] [address] [place] [address] PCP - General Family Medicine 04/28/22 documented as of this encounter
--- OUTSIDE RECORDS SUMMARY | 2024-10-07 21:37 | XMS_ITS | Encounter Summary ---
Author Organization [employer] Address [address] [facility] 7t [place] [address] Care Team Providers Care Explosive Operator Supervisor Name Role Phone [place] [facility] Primary Care Provider [phone] Reason for Visit * Reason Onset Date Comments Med Refill 10/03/2024 Encounter Details Date Type Department Care Team ([facility] st Contact Info) Description 10/03/[address] [facility] [address] [place], [place] [phone] [facility] [address] [place] [address] Social History Tobacco Use Types Packs/Day Years [...] EDT Office Visit [facility] [address] [place] [address] Tg Milner FNP 230 [place] [address] documented as of this encounter Visit Diagnoses Not on filedocumented in this encounter Additional Health Concerns Assessment Noted Time PHQ-9 Depression Total Score: 0 07/22/19 25 10:03 AM EST documented as of this encounter Care Teams Explosive Operator Supervisor Relationship Specialty Start Date End Date Tg Milner FNP [address] [place] [address] PCP - General Family Medicine 04/28/22 documented as of this encounter
[2024-10-07 21:45] LABS: Bacteria Urine 4+ (None Seen); RBC Urine 0-2 /HPF (0-2); Squamous Epithelial Cell Urine 0-2 /HPF (0-2); UACC Culture Trigger YES; WBC Urine >50 /HPF (0-5)
[2024-10-07 22:34] VITALS: BP 139/71; PULSE 76; RESP 16; TEMP 37.4; O2SAT 97
[2024-10-07] MEDS: cefuroxime axetiL 500 MG TABLET PO (23:01)
[2024-10-07 23:06] VITALS: BP 139/71; PULSE 76; RESP 16; TEMP 37.4; O2SAT 97
== END 2024-10-07 23:15 | disposition home or self-care (01) ==
PROVIDERS: Nurse Practitioner Family; Emergency Provider Internal Medicine
DX: T83.511A Infection and inflammatory reaction due to indwelling urethral catheter, initial encounter (principal); Y73.8 Miscellaneous gastroenterology and urology devices associated with adverse incidents, not elsewhere classified; Y92.039 Unspecified place in apartment as the place of occurrence of the external cause; R33.9 Retention of urine, unspecified; R10.30 Lower abdominal pain, unspecified; E11.9 Type 2 diabetes mellitus without complications; I10 Essential (primary) hypertension; E78.5 Hyperlipidemia, unspecified; Z79.82 Long term (current) use of aspirin; Z79.84 Long term (current) use of oral hypoglycemic drugs; Z79.02 Long term (current) use of antithrombotics/antiplatelets
CPT/HCPCS: 36415; 51702; 51798; 80053; 81001; 85025; 87086; 87088; 87186; 99283; 99285

== ENCOUNTER 2024-10-20 15:00 | Outpatient (RCR) | payer OTHER, SELFPAY | END 2024-11-17 11:55 | disposition home or self-care (01) | LOC: HO.WCC 15:00 | PROVIDERS: PCP Registered Nurse; Visit Provider Surgery | DX: E11.621 Type 2 diabetes mellitus with foot ulcer (principal); L97.522 Non-pressure chronic ulcer of other part of left foot with fat layer exposed | CPT/HCPCS: 11042; 11043; 15275; 99212; 99213; Q4187 ==

== ENCOUNTER 2024-10-28 08:45 | Outpatient (AMB) | payer OTHER, SELFPAY ==
--- OUTSIDE RECORDS SUMMARY | 2024-10-28 08:46 | XMS_ITS | Encounter Summary ---
Author Organization [employer] Address [address] [facility] 7t [place] [address] Care Team Providers Care Lump Machine Operator Name Role Phone [place], [facility] Primary Care Provider [phone] Reason for Visit * Reason Comments Med Refill Encounter Details Date Type Department Care Team ([facility] st Contact Info) Description 08/31/2024 Refill [facility] [address] [place] [address] [facility] [address] [place] [address] Primary hypertension Social History Tobacco Use Types [...] Care Team (Late st Contact Info) Description 01/11/2025 2:00 PM EDT Office Visit [facility] [address] [place] [address] Tg Milner FNP [address] [place] [address] documented as of this encounter Visit Diagnoses Diagnosis Primary hypertension Unspecified essential hypertension documented in this encounter Additional Health Concerns Assessment Noted Time PHQ-9 Depression Total Score: 0 07/22/19 25 10:03 AM EST documented as of this encounter Care Teams Lump Machine Operator Relationship Specialty Start Date End Date Tg Milner FNP [address] [place] [address] PCP - General Family Medicine 04/28/22 documented as of this encounter
--- NOTE | 2024-10-28 08:54 | A.OFFVIS_ITS ---
Intake Visit Reasons: cysto/VT Intake Note: Patient is present for Cystoscopy/VT Urology Medication:NONE Antibiotic Allergy:NONE Blood Thinner:NONE TODAY'S PVR: 683ML'S Lot:[id number] Exp:10/07/26 Hat Steamer Required: No Allergies No Known Allergies (No Known Allergies*) Allergy (Verified 11/19/24 21:58) HPI Comments Details: Brandt is a pleasant male. He is seen for the following urologic conditions - balanitis, phimosis - urinary retention Croatian translation provided in office by qualified phlebotomist medical lab assistant Here for cystoscopy with voiding trial Large median lobe Start combination prostate medication Urinary retention 10/23 urinary retention Seen in emergency room 1500 cc was associated with bowel constipation Background diabetes Phimosis Diabetic Most recent HbA1c 8.0 Recurrent phimosis with difficulty retracting foreskin and cracking with bleeding Recommend circumcision [facility] Medical History Osteomyelitis DM2 (diabetes mellitus, type 2) Essential hypertension Right lumbar radiculopathy Arthritis of both knees Balanitis Type 2 diabetes mellitus with polyneuropathy Hyperlipidemia LDL goal <100 Obesity due to excess calories Type 2 diabetes mellitus with hyperglycemia, with long-term current use of insulin Surgical History H/O colonoscopy Hx of tonsillectomy Hx of appendectomy Family History Father No problems noted. 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 [employer] Review of Systems Const Denies chills and Denies fever(s) Card Reports no additional complaints and Denies syncope Resp Denies cough GI Denies abdominal pain and Denies heartburn Reports as per HPI and Denies change in libido Neuro Denies syncope Psych Denies change in libido Endo Denies change in libido Physical Exam Const General: cooperative, healthy appearing, comfortable and no acute distress Orientation/consciousness: patient oriented x3 HEENT Face and sinus: Yes normal facial exam Mouth: moist mucous membranes Neck Neck: Yes normal visual inspection, Yes full ROM and Yes trachea midline Chest Chest palpation & inspection: normal inspection of the chest Resp Effort & Inspection: normal respiratory effort, able to speak in complete sentences and no respiratory distress GI Inspection: Yes normal to inspection Back/Spine/Pelvis Cervical Spine: normal cervical lordosis Thoracic/Lumbar Spine: thoracic and lumbar spine normal to inspection Skin General skin exam: no rashes or lesions noted Neuro General: patient oriented x3, gait normal, tone normal and moves all extremities Extrem General: Yes normal to inspection and Yes capillary refill normal Office Procedures Bladder/Catheter Procedure Details: bo catheter removed prior to cystoscopy procedure. Patient was not able to void. Per Dr. Jarrell 16fr coude bo catheter 10ml balloon flip inserted, patient tolerated well. Emptied 600mls clear yellow urine from bladder. Patient to make VT appt with nursing for 4w eeks. 79784-[id number] Temporary Bladder Catheter Procedure code (CPT) selection complete Cystoscopy Consent Discussed risk and benefit or proposed procedure with the patient. Information consent for procedure given to the patient. Discussed technical aspects, risks, benefits and alternatives in full. Addressed all of the patient's questions and concerns regarding the procedure. The patient demonstrated knowledge and understanding. They wish to proceed with this procedure. Preparation The patient was prepped in the usual manner. A hotel maid was present and in the room. Genitalia was prepped with betadine solution in a sterile manner. Lidocaine Jelly 2% was placed into the urethra and 16Fr flexible Olympus cystoscope was inserted into the meatus after adequate lubrication. Procedure Cystoscopy performed using a disposable Urovue digital 16 Luxembourgish cystoscope. Meatus circumcised Urethra anterior and posterior urethra normal Prostatic Urethra trilobar hyperplasia Bladder examination with retroflexion of cystoscope Bladder Orifices normal shape and position Bladder Capacity Normal Trabeculations Grade 0 Cellule Formation None Diverticulum Formation None Mucosal Erythema None Bladder Tumor None Removed 16fr bo catheter prior to cystoscopy prep 59981-Lryypxffvy DISPOSABLE SCOPE URO-G FLEXIBLE SCOPE Procedure code (CPT) selection complete Post Void Residual Post Residual Void Post Void Residual (PVR): 683 [id number] Void Residual by ultrasound Office Meds lidocaine HCl 2 % mucosal jelly in applicator Performing Provider: Moy Jarrell MD [facility]forming [facility] [place] [facility] Administered by: Kelvin Dsouza LPN on 10/28/24 09:17 Dose Route Admin Location Dispensed Lot Number Expiration Date NDC Manager Report 10 mL intra-urethral 10 mL nitrofurantoin monohydrate/macrocrystals 100 mg capsule Performing Provider: Moy Jarrell MD Performing Location: [facility] [place] [facility] Administered by: Kelvin MalagonJONN shields on 10/28/24 09:17 Dose Route Admin Location Dispensed Lot Number Expiration Date NDC Manager Report 100 mg PO 1 cap Assessment & Plan Assessment & Plan (1) Urinary retention with incomplete bladder emptying: Code(s): R33.9 - Retention of urine, unspecified Category: Medical Plan Trial prostate medications 4 week voiding trial Greenlight laser if fail Orders: Orders AMB Bladder/Catheter Procedure 10/28/24 R33.9 - Retention of urine, unspecified AMB Cystoscopy 10/28/24 R33.9 - Retention of urine, unspecified Medications: New finasteride 5 mg PO DAILY 90 tabs 1RF 90 days doxazosin 4 mg PO BEDTIME 30 tabs 1RF 30 days Patient Instructions: This note is constructed using voice recognition software. While every effort has been made to ensure accuracy manager cosmetic errors may have been included. Imaging studies, laboratory and physical exam results were discussed and rev iewed in detail. No major barriers to patient understanding were identified. An opportunity to ask questions regarding the treatment plan was provided. All questions were answered. The patient expressed understanding and agreement with the above treatment plan. The patient is aware they should contact our office by phone for worsening of their current condition or the appearance of new urologic symptoms. Compliance is encouraged with any medications and followup testing that is ordered. It is a privilege to participate in the urologic care of your patient. If you have any questions or concerns regarding treatment for the above conditions, or other urologic issues, please do not hesitate to contact me. The office telephone contact is [phone]. Sincerely, Dr Moy Jarrell MD, [facility] - Urology Compassionate Specialist Care for the Genitourinary System Coding Level of Care Code Est Pt Level 4 (88386) Diagnoses Urinary retention with incomplete bladder emptying R33.9 CPT Codes Bladder/Catheter Procedure - CPT: 27775-Nfxzjy Temporary Bladder Catheter ([id number]) Cystoscopy - CPT: 85191-Zwnqhkkbno ([id number]) Post Residual Void - PVR CPT Code: 20922-Ojsk Void Residual by ultrasound ([id number])
== END 2024-10-28 10:27 | disposition home or self-care (01) ==
LOC: HO.HUSH 08:45
PROVIDERS: Visit Provider Urology
DX: R33.9 Retention of urine, unspecified (principal)
CPT/HCPCS: 52000; 99214

== ENCOUNTER → 2024-10-28 08:45 | Outpatient (BNVA) | payer OTHER, SELFPAY | PROVIDERS: Visit Provider Urology | DX: R33.9 Retention of urine, unspecified (principal) | CPT/HCPCS: 51798; 52000; 99212 ==

== ENCOUNTER 2024-11-11 07:29 | Emergency (ER) | payer OTHER, SELFPAY ==
[2024-11-11 07:38] VITALS: BP 149/77; PULSE 68; RESP 20; TEMP 36.7; O2SAT 99; BMI 32.1
--- NOTE | 2024-11-11 07:58 | ED_ITS ---
HPI - Male Genitourinary General Chief complaint: Urogenital-Male Stated complaint: Issues w/ catheter Time Seen by Provider: 11/11/24 07:58 Source: patient and old records reviewed Mode of arrival: ambulatory Limitations: no limitations History of Present Illness ED Provider: HPI Narrative: 64-year-old male followed by Dr. Jarrell from Urology, had a Anaya catheter placed on 10/28, presented with leakage around Anaya catheter insertion site, feeling of inability to empty of urine. Requesting Anaya catheter to be removed. He was noted to have over a 1000 cc of urine in his bladder. No fevers or chills reported. He states he has been taking medications for prostate issues prescribed by urology on regular basis. Wondering if he needs a Anaya catheter or can be discontinued. Related Data Home Medications ?Medication ?Instructions ?Recorded ?Confirmed aspirin 81 mg tablet,delayed 81 mg PO DAILY 03/29/20 10/05/24 release (Adult Aspirin Regimen) gabapentin 800 mg tablet 800 mg PO BID 03/29/20 10/05/24 metformin 1,000 mg tablet 1,000 mg PO BID 03/29/20 10/05/24 metoprolol succinate 200 mg 200 mg PO DAILY 03/29/20 10/05/24 tablet,extended release 24 hr alcohol swabs (Alcohol Prep Pads) pad topical DAILY 08/29/21 10/05/24 blood sugar diagnostic (FreeStyle #10 ea 08/29/21 10/05/24 Lite Strips) lancets 33 gauge (TRUEplus Lancets) #100 ea 08/29/21 10/05/24 latanoprost 0.005 % eye drops 1 drp ophthalmic (eye) BEDTIME 08/29/21 10/05/24 melatonin 5 mg tablet 10 mg PO BEDTIME PRN insomnia 08/29/21 10/05/24 pantoprazole 20 mg tablet,delayed 20 mg PO DAILY 08/29/21 10/05/24 release amlodipine 10 mg tablet 10 mg PO DAILY 02/25/24 10/05/24 dulaglutide 4.5 mg/0.5 mL mg subcut 02/25/24 10/05/24 subcutaneous pen injector (Trulicity) pravastatin 40 mg tablet 40 mg PO DAILY 02/25/24 10/05/24 empagliflozin 25 mg tablet 25 mg PO DAILY 06/15/24 10/05/24 (Jardiance) acetaminophen 500 mg tablet 500 mg PO Q6H PRN mild pain 10/05/24 10/05/24 Previous Rx's ?Medication ?Instructions ?Recorded diphenoxylate-atropine 2.5 1 tab PO DAILY PRN diarrhea #4 tabs 01/21/21 mg-0.025 mg tablet (Lomotil) clotrimazole-betamethasone 1 1 appl topical BID 4 weeks #45 08/29/ %-0.05 % topical cream grams docusate sodium 250 mg capsule 250 mg PO BID PRN constipation #10 09/01/24 caps bisacodyl 5 mg tablet,delayed 5 mg PO ONCE 1 day #3 tabs 09/16/24 release polyethylene glycol 3350 17 238 g PO ONCE laxative effect 1 09/16/24 gram/dose oral powder (Miralax) day #238 grams cefuroxime axetil 500 mg tablet 500 mg PO BID 10 days #20 tabs 10/07/24 doxazosin 4 mg tablet 4 mg PO BEDTIME 30 days #30 tabs 10/28/24 finasteride 5 mg tablet 5 mg PO DAILY 90 days #90 tabs 10/28/24 Allergies Allergy/AdvReac Type Severity Reaction Status Date / Time No Known Allergies Allergy Verified 11/11/24 07:49 [No Known Allergies*] Review of Systems 2 Constitutional: Constitutional: Reports as per [facility] Past Medical History Medical History Osteomyelitis DM2 (diabetes mellitus, type 2) Essential hypertension Right lumbar radiculopathy Arthritis of both knees Balanitis Type 2 diabetes mellitus with polyneuropathy Hyperlipidemia LDL goal <100 Obesity due to excess calories Type 2 diabetes mellitus with hyperglycemia, with long-term current use of insulin Surgical History H/O colonoscopy Hx of tonsillectomy Hx of appendectomy Family History Family History Father No problems noted. 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 2 Vital Signs: Vital Signs: Last Vital Signs Temp 98.0 F 11/11/24 07:38 Pulse 70 11/11/24 08:05 Resp 18 11/11/24 08:05 BP 125/86 11/11/24 08:05 Pulse Ox 100 11/11/24 08:05 O2 Del Method Room Air 11/11/24 08:05 BMI result Body Mass Index 32.1 Medical Decision Making Medical Decision Making MDM Narrative: 08:33 I have explained to the patient that he will need a Anaya catheter because it was placed by Urology when he has had incomplete emptying issues that places him at risk for kidney issues and infection, he did have a 1000 cc with a bladder scan was straight cath, then did not want to have the Anaya catheter in and I recommended it and some hoping he is going to have it replaced. He does not use a bag and drains his bladder every 3 hours. Of note it is documented the patient is [place] Islander-speaking and he is but he is able to converse and make his needs known without sales and marketing administrator requested or needed. 09:25 patient drained another 6-700 cc of urine, he is taking antibiotics for Proteus species that was noted on his culture on October 07, we will be discharged with a Anaya catheter Differential Diagnosis Differential Diagnoses: The differential diagnosis associated with the presentation includes LILI on CKD, UTI, prostatitis Lab Data 11/11/24 08:23 11/11/24 08:23 Labs: Lab Results 11/11/24 Range/Units 08:23 WBC 7.8 (4.8-10.8) X10*3/uL RBC 4.69 (4.60-5.80) X10*6/uL Hgb 13.2 L (14.0-18.0) g/dl Hct 39.0 L (42.0-52.0) % MCV 83.2 (80.0-98.0) fL MCH 28.1 (27.0-33.0) pg MCHC 33.8 (31.0-36.0) g/dl RDW 13.7 (11.0-16.0) % Plt Count 181 D (160-400) X10*3/uL MPV 9.7 (9.4-12.4) fL Immature Gran % (Auto) 0.4 (0.0-0.4) % Neut % (Auto) 68.5 (45-73) % Lymph % (Auto) 18.1 L (20-40) % Crawford % (Auto) 9.9 (2-11) % Eos % (Auto) 2.7 (0-4) % Baso % (Auto) 0.4 (0-2) % Lymph # (Auto) 1.4 (1.2-4.9) X10*3/uL Crawford # (Auto) 0.8 (0.1-1.2) X10*3/uL Eos # (Auto) 0.2 (0.0-0.4) X10*3/uL Baso # (Auto) 0.0 (0.0-0.2) X10*3/uL Abs Immat Gran (auto) 0.03 (0.00-0.03) X10*3/uL Absolute Neuts (auto) 5.4 (2.0-8.3) x10*3/uL Absolute Nucleated RBC 0.000 (0.0-0.012) X10*3/uL Nucleated RBC % (auto) 0.0 (0.0-0.2) /100WBC Sodium 137 (135-145) mmol/L Potassium 4.7 (3.3-5.1) mmol/L Chloride 104 (96-108) mmol/L Carbon Dioxide 25 (22-29) mmol/L Anion Gap 13 (12-20) BUN 29 H (9-16) mg/dL Creatinine 1.79 H (0.5-1.4) mg/dL Estim Creat Clear Calc 48.4 Estimated GFR 38 Random Glucose 257 H (60-115) mg/dL Calcium 9.6 (8.4-10.2) mg/dL Total Bilirubin 0.3 (0.0-1.0) mg/dL AST 22 (5-37) U/L ALT 21 (0-40) U/L Alkaline Phosphatase 61 (39-117) U/L Total Protein 7.7 (6.5-8.0) g/dL Albumin 4.0 (3.5-5.0) g/dL Urine Color Yellow Urine Appearance Turbid Urine pH >= 9.0 (5.0-9.0) Ur Specific [place] 1.025 (1.005-1.025) Urine Protein 30 (1+) H (Neg-Trace) mg/dL Urine Glucose (UA) 500 H (Negative) mg/dL Urine Ketones Negative (Negative) mg/dL Urine Blood Small (1+) H (Negative) Urine Nitrite Negative (Negative) Ur Leukocyte Esterase Large (3+) H (Negative) Urine RBC 0-2 (0-2) /HPF Urine WBC >50 H (0-5) /HPF Ur Squamous Epith Cells 0-2 (0-2) /HPF Urine Bacteria 4+ (None Seen) Hyaline Casts 0-2 (0-2) /LPF Discharge Plan Discharge Clinical Impression: Acute retention of urine, Urinary tract infection Patient Disposition: Home, Self-Care Additional Instructions: Continue to follow up with your urologist, continue Anaya catheter care, and make sure to take antibiotics that were prescribed for you by your urologist. Prescriptions: No Action diphenoxylate-atropine [Lomotil] 2.5-0.025 mg tablet 1 tab PO DAILY PRN (Reason: diarrhea) Qty: 4 0RF docusate sodium 250 mg capsule 250 mg PO BID PRN (Reason: constipation) Qty: 10 0RF cefuroxime axetil 500 mg tablet 500 mg PO BID 10 Days Qty: 20 0RF metformin 1,000 mg tablet 1,000 mg PO BID gabapentin 800 mg tablet 800 mg PO BID metoprolol succinate 200 mg tablet extended release 24 hr 200 mg PO DAILY aspirin [Adult Aspirin Regimen] 81 mg tablet,delayed release (DR/EC) 81 mg PO DAILY melatonin 5 mg tablet 10 mg PO BEDTIME PRN (Reason: insomnia) pantoprazole 20 mg tablet,delayed release (DR/EC) 20 mg PO DAILY alcohol swabs [Alcohol Prep Pads] Pads, Medicated topical DAILY (DME) FreeStyle Lite Strips Strip See Rx Instructions Not Applicable DAILY Qty: 10 Rx Instructions: As directed latanoprost 0.005 % drops 1 drp ophthalmic (eye) BEDTIME (DME) lancets [TRUEplus Lancets] 33 gauge misc See Rx Instructions Not Applicable DAILY Qty: 100 Rx Instructions: As directed clotrimazole-betamethasone 1-0.05 % cream 1 appl topical BID 28 Days Qty: 45 0RF Rx Instructions: Apply thin coat 2 times per day amlodipine 10 mg tablet 10 mg PO DAILY Trulicity 4.5 mg/0.5 mL pen injector subcut pravastatin 40 mg tablet 40 mg PO DAILY Jardiance 25 mg tablet 25 mg PO DAILY polyethylene glycol 3350 [Miralax] 17 gram/dose powder 238 g PO ONCE 1 Days Qty: 238 0RF Rx Instructions: Take as directed by mouth the day before your procedure. bisacodyl 5 mg tablet,delayed release (DR/EC) 5 mg PO ONCE 1 Days Qty: 3 0RF Rx Instructions: per colonoscopy instructions acetaminophen 500 mg tablet 500 mg PO Q6H PRN (Reason: mild pain) doxazosin 4 mg tablet 4 mg PO BEDTIME 30 Days Qty: 30 1RF finasteride 5 mg tablet 5 mg PO DAILY 90 Days Qty: 90 1RF Print Language: [place] Islander
[2024-11-11 08:05] VITALS: BP 125/86; PULSE 70; RESP 18; O2SAT 100
--- OUTSIDE RECORDS SUMMARY | 2024-11-11 08:27 | XMS_ITS | Encounter Summary ---
Author Organization [employer] Address [address] [place] [address] Care Team Providers Care Bolt Loader Name Role Phone [place], [facility] Primary Care Provider [phone] Reason for Visit * Reason Comments Med Refill Encounter Details Date Type Department Care Team ([facility] st Contact Info) Description 08/31/2024 Refill [facility] [address] [place] [address] Sh[place] [facility] [address] [place] [address] Primary hypertension Social History Tobacco Use Types [...] Description 01/11/2025 2:00 PM EDT Office Visit [facility] [address] [place] [address] Tg Milner FNP [address] [place] [address] documented as of this encounter Visit Diagnoses Diagnosis Primary hypertension Unspecified essential hypertension documented in this encounter Additional Health Concerns Assessment Noted Time PHQ-9 Depression Total Score: 0 07/22/19 25 10:03 AM EST documented as of this encounter Care Teams Bolt Loader Relationship Specialty Start Date End Date Tg Milner FNP [address] [place] [address] PCP - General Family Medicine 04/28/22 documented as of this encounter
[2024-11-11 08:29] LABS: MANUAL DIFF FLAG NO
[2024-11-11 08:30] LABS: Basophils Percent Auto 0.4 % (0-2); Eosinophils Absolute Auto 0.2 X10*3/uL (0.0-0.4); Eosinophils Percent Auto 2.7 % (0-4); Hemoglobin 13.2 g/dl (14.0-18.0); Imm Gran Abs Auto 0.03 X10*3/uL (0.00-0.03); Imm Gran Pct Auto 0.4 % (0.0-0.4); Lymphocytes Absolute Auto 1.4 X10*3/uL (1.2-4.9); Lymphocytes Percent Auto 18.1 % (20-40); Mean Corpuscular HGB Conc 33.8 g/dl (31.0-36.0); Mean Corpuscular Hemoglobin 28.1 pg (27.0-33.0); Mean Corpuscular Volume 83.2 fL (80.0-98.0); Mean Platelet Volume 9.7 fL (9.4-12.4); Monocytes Absolute Auto 0.8 X10*3/uL (0.1-1.2); Monocytes Percent Auto 9.9 % (2-11); Neutrophils Absolute Auto 5.4 x10*3/uL (2.0-8.3); Neutrophils Percent Auto 68.5 % (45-73); Platelet Count 181 X10*3/uL (160-400); Red Blood Count 4.69 X10*6/uL (4.60-5.80); Red Cell Distribution Width 13.7 % (11.0-16.0); White Blood Count 7.8 X10*3/uL (4.8-10.8)
[2024-11-11 08:34] LABS: Appearance Urine Turbid; Color Urine Yellow; Glucose Urine UA 500 mg/dL (Negative); Leukocyte Esterase Urine Large (3+) (Negative); Nitrite Urine Negative (Negative); PH >= 9.0 (5.0-9.0); Specific Gravity - Urine 1.025 (1.005-1.025); UMIC TRIGGER UACC YES; Urine Blood Small (1+) (Negative); Urine Ketones Negative (Negative); Urine Protein 30 (1+) mg/dL (Neg-Trace)
[2024-11-11 08:41] LABS: Bacteria Urine 4+ (None Seen); Hyaline Casts Urine 0-2 /LPF (0-2); RBC Urine 0-2 /HPF (0-2); Squamous Epithelial Cell Urine 0-2 /HPF (0-2); UACC Culture Trigger YES; WBC Urine >50 /HPF (0-5)
[2024-11-11 08:43] LABS: Alanine Aminotransferase 21 U/L (0-40); Alkaline Phosphatase 61 U/L (39-117); Anion Gap 13 (12-20); Aspartate Amino Transferase 22 U/L (5-37); Bilirubin Total 0.3 mg/dL (0.0-1.0); Blood Urea Nitrogen 29 mg/dL (9-16); Calcium 9.6 mg/dL (8.4-10.2); Carbon Dioxide 25 mmol/L (22-29); Chloride 104 mmol/L (96-108); Creatinine Clr Calc Pharmacy 48.4; Estimated Glomerular Filt Rate 38; Glucose Random 257 mg/dL (60-115); Potassium 4.7 mmol/L (3.3-5.1); Sodium 137 mmol/L (135-145); Total Protein 7.7 g/dL (6.5-8.0)
--- NOTE | 2024-11-11 08:46 | PC.NURSE ---
Addendum entered by Adilia Taylor RN 11/11/24 08:48: Brandt is a pleasant 62-year-old man with a history of longstanding diabetes mellitus and hypertension. He has been referred for evaluation of chronic kidney disease. He complains of increased urinary frequency. No hesitancy no hematuria. Patient present with a bo not attached to a bag in which he states he empties every three hours. Noted over the past several day that the bo was draining in small amounts/draining around catheter with assoc dysuria and his bladder feeling full. Bladder scan performed and 1089cc noted. Bo removed and urine started spurting out, approx 500-600cc noted. Patient continue to have the full feeling and was voiding in small amounts. 16 fr bo inserted without difficulty and a large amount of yellow urine noted. Lungs clear bilat. Respirations even and non-labored. Abdomen sl firm, distended with positive bowel sounds. Positive pedal pulses with no edema noted. Original Note: Medical History Osteomyelitis DM2 (diabetes mellitus, type 2) Essential hypertension Right lumbar radiculopathy Arthritis of both knees Balanitis Type 2 diabetes mellitus with polyneuropathy Hyperlipidemia LDL goal <100 Obesity due to excess calories Type 2 diabetes mellitus with hyperglycemia, with long-term current use of insulin
--- NOTE | 2024-11-11 09:50 | PC.NURSE ---
Leg bag applied and instructions provided utilizing a business analytics director.
[2024-11-11 09:54] VITALS: BP 125/86; PULSE 70; RESP 18; TEMP 36.7; O2SAT 100
== END 2024-11-11 10:01 | disposition home or self-care (01) ==
PROVIDERS: Emergency Provider Emergency Medicine; PCP Internal Medicine
DX: R33.9 Retention of urine, unspecified (principal); N39.0 Urinary tract infection, site not specified
CPT/HCPCS: 36415; 80053; 81001; 85025; 87086; 87088; 87186; 99283; 99285

== ENCOUNTER 2024-11-12 19:23 | Emergency (ER) | payer OTHER, SELFPAY ==
--- NOTE | 2024-11-12 19:37 | ED.GENADULT ---
HPI - General Adult General Chief complaint: Urogenital-Male Stated complaint: cathiter needs to be fixed Time Seen by Provider: 11/12/24 20:06 Source: patient Mode of arrival: ambulatory Limitations: no limitations History of Present Illness ED Provider: HPI narrative: Patient with BPH with urinary retention status post Anaya catheter since 09/23 was seen here yesterday for urinary retention new catheter was placed comes here as since 16:00 and not able to urinate prior to that patient was able to urinate very well patient does have a leg bag bladder scan showed more than 750 cc of urine Related Data Home Medications ?Medication ?Instructions ?Recorded ?Confirmed aspirin 81 mg tablet,delayed 81 mg PO DAILY 03/29/20 10/05/24 release (Adult Aspirin Regimen) gabapentin 800 mg tablet 800 mg PO BID 03/29/20 10/05/24 metformin 1,000 mg tablet 1,000 mg PO BID 03/29/20 10/05/24 metoprolol succinate 200 mg 200 mg PO DAILY 03/29/20 10/05/24 tablet,extended release 24 hr alcohol swabs (Alcohol Prep Pads) pad topical DAILY 08/29/21 10/05/24 blood sugar diagnostic (FreeStyle #10 ea 08/29/21 10/05/24 Lite Strips) lancets 33 gauge (TRUEplus Lancets) #100 ea 08/29/21 10/05/24 latanoprost 0.005 % eye drops 1 drp ophthalmic (eye) BEDTIME 08/29/21 10/05/24 melatonin 5 mg tablet 10 mg PO BEDTIME PRN insomnia 08/29/21 10/05/24 pantoprazole 20 mg tablet,delayed 20 mg PO DAILY 08/29/21 10/05/24 release amlodipine 10 mg tablet 10 mg PO DAILY 02/25/24 10/05/24 dulaglutide 4.5 mg/0.5 mL mg subcut 02/25/24 10/05/24 subcutaneous pen injector (Trulicity) pravastatin 40 mg tablet 40 mg PO DAILY 02/25/24 10/05/24 empagliflozin 25 mg tablet 25 mg PO DAILY 06/15/24 10/05/24 (Jardiance) acetaminophen 500 mg tablet 500 mg PO Q6H PRN mild pain 10/05/24 10/05/24 Previous Rx's ?Medication ?Instructions ?Recorded diphenoxylate-atropine 2.5 1 tab PO DAILY PRN diarrhea #4 tabs 01/21/ mg-0.025 mg tablet (Lomotil) clotrimazole-betamethasone 1 1 appl topical BID 4 weeks #45 08/29/ %-0.05 % topical cream grams docusate sodium 250 mg capsule 250 mg PO BID PRN constipation #10 09/01/24 caps bisacodyl 5 mg tablet,delayed 5 mg PO ONCE 1 day #3 tabs 09/16/24 release polyethylene glycol 3350 17 238 g PO ONCE laxative effect 1 09/16/24 gram/dose oral powder (Miralax) day #238 grams cefuroxime axetil 500 mg tablet 500 mg PO BID 10 days #20 tabs 10/07/24 doxazosin 4 mg tablet 4 mg PO BEDTIME 30 days #30 tabs 10/28/24 finasteride 5 mg tablet 5 mg PO DAILY 90 days #90 tabs 10/28/24 Allergies Allergy/AdvReac Type Severity Reaction Status Date / Time No Known Allergies Allergy Verified 11/12/24 19:41 [No Known Allergies*] Review of Systems Review of Systems: Yes all other systems are reviewed and are negative PMFSH Past Medical History Medical History Osteomyelitis DM2 (diabetes mellitus, type 2) Essential hypertension Right lumbar radiculopathy Arthritis of both knees Balanitis Type 2 diabetes mellitus with polyneuropathy Hyperlipidemia LDL goal <100 Obesity due to excess calories Type 2 diabetes mellitus with hyperglycemia, with long-term current use of insulin Surgical History H/O colonoscopy Hx of tonsillectomy Hx of appendectomy Family History Family History Father No problems noted. 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 Oriented X3. No acute distress. Eyes: No pallor or icterus ENT: Pharynx normal. Oral Mucosa moist Neck: Normal inspection. Neck supple. CVS: Normal heart rate and rhythm. Pulses normal. Respiratory: No respiratory distress. Equal air entry bilateral, no wheezing/rales/rhonchi Abdomen: Soft and bladder fullness++. Bowel sounds are present, no mass palpable, no CVA tenderness Skin: Skin warm and dry. Normal skin color. Normal skin turgor. Extremities: No lower extremity edema. No calf tenderness Neuro: Oriented X 3. No motor deficit. Course Course Course Narrative: This is a rapid medical exam performed by Marilyn Franklin NP: Additional HPI, ROS, PE not included below will be deferred to primary provider. Patient is a 64-year-old male with history of T2DM, HTN, CKD, indwelling urinary catheter presenting to the ED stating that he was here yesterday, had his catheter changed, new catheter is not draining and urine is leaking around the catheter from urethra. Feels urge to urinate. Plan: UA, bladder scan Medical Decision Making Medical Decision Making MDM Narrative: Patient with indwelling Anaya catheter with leg bag noticed to have kinking at the leg bag new bag was placed and able to drain the urine without any significant discomfort will discharge patient home Discharge Plan Discharge Clinical Impression: Urinary retention with incomplete bladder emptying Patient Disposition: Home, Self-Care Instructions: Anaya Catheter Care Additional Instructions: Care of Anaya catheter as advised Prescriptions: No Action diphenoxylate-atropine [Lomotil] 2.5-0.025 mg tablet 1 tab PO DAILY PRN (Reason: diarrhea) Qty: 4 0RF docusate sodium 250 mg capsule 250 mg PO BID PRN (Reason: constipation) Qty: 10 0RF cefuroxime axetil 500 mg tablet 500 mg PO BID 10 Days Qty: 20 0RF metformin 1,000 mg tablet 1,000 mg PO BID gabapentin 800 mg tablet 800 mg PO BID metoprolol succinate 200 mg tablet extended release 24 hr 200 mg PO DAILY aspirin [Adult Aspirin Regimen] 81 mg tablet,delayed release (DR/EC) 81 mg PO DAILY melatonin 5 mg tablet 10 mg PO BEDTIME PRN (Reason: insomnia) pantoprazole 20 mg tablet,delayed release (DR/EC) 20 mg PO DAILY alcohol swabs [Alcohol Prep Pads] Pads, Medicated topical DAILY (DME) FreeStyle Lite Strips Strip See Rx Instructions Not Applicable DAILY Qty: 10 Rx Instructions: As directed latanoprost 0.005 % drops 1 drp ophthalmic (eye) BEDTIME (DME) lancets [TRUEplus Lancets] 33 gauge misc See Rx Instructions Not Applicable DAILY Qty: 100 Rx Instructions: As directed clotrimazole-betamethasone 1-0.05 % cream 1 appl topical BID 28 Days Qty: 45 0RF Rx Instructions: Apply thin coat 2 times per day amlodipine 10 mg tablet 10 mg PO DAILY Trulicity 4.5 mg/0.5 mL pen injector subcut pravastatin 40 mg tablet 40 mg PO DAILY Jardiance 25 mg tablet 25 mg PO DAILY polyethylene glycol 3350 [Miralax] 17 gram/dose powder 238 g PO ONCE 1 Days Qty: 238 0RF Rx Instructions: Take as directed by mouth the day before your procedure. bisacodyl 5 mg tablet,delayed release (DR/EC) 5 mg PO ONCE 1 Days Qty: 3 0RF Rx Instructions: per colonoscopy instructions acetaminophen 500 mg tablet 500 mg PO Q6H PRN (Reason: mild pain) doxazosin 4 mg tablet 4 mg PO BEDTIME 30 Days Qty: 30 1RF finasteride 5 mg tablet 5 mg PO DAILY 90 Days Qty: 90 1RF Print Language: Slovak
[2024-11-12 19:38] VITALS: BP 138/83; PULSE 75; RESP 16; TEMP 36.8; O2SAT 98; BMI 32.9
--- OUTSIDE RECORDS SUMMARY | 2024-11-12 20:31 | XMS_ITS | Encounter Summary ---
Author Organization [employer] Address [address] [facility] [address] [place] [address] Care Team Providers Care Monogram Operator Name Role Phone [place], [facility] Primary Care Provider Reason for Visit * Reason Comments Med Refill Encounter Details Date Type Department Care Team ([facility] st Contact Info) Description 08/31/2024 Refill [facility] [address] [place] [address] Wolverine [facility] [address] [place] [address] Primary hypertension Social History Tobacco Use Types [...] Description 01/11/2025 2:00 PM EDT Office Visit [facility] [address] [place] [address] Tg Milner FNP [address] [place] [address] documented as of this encounter Visit Diagnoses Diagnosis Primary hypertension Unspecified essential hypertension documented in this encounter Additional Health Concerns Assessment Noted Time PHQ-9 Depression Total Score: 0 07/22/19 25 10:03 AM EST documented as of this encounter Care Teams Monogram Operator Relationship Specialty Start Date End Date Tg Milner FNP [address] [place] [address] PCP - General Family Medicine 04/28/22 documented as of this encounter
[2024-11-12 20:50] LABS: Appearance Urine Clear; Color Urine Yellow; Glucose Urine UA >=1000 mg/dL (Negative); Leukocyte Esterase Urine Moderate (2+) (Negative); Nitrite Urine Negative (Negative); PH 7.5 (5.0-9.0); Specific Gravity - Urine 1.025 (1.005-1.025); UMIC TRIGGER UACC YES; Urine Blood Trace (Negative); Urine Ketones Negative (Negative); Urine Protein Negative (Neg-Trace)
[2024-11-12 20:52] LABS: Bacteria Urine 4+ (None Seen); Hyaline Casts Urine 0-2 /LPF (0-2); RBC Urine 0-2 /HPF (0-2); Squamous Epithelial Cell Urine 0-2 /HPF (0-2); UACC Culture Trigger YES; WBC Urine >50 /HPF (0-5)
[2024-11-12 20:54] VITALS: BP 138/83; PULSE 75; RESP 16; TEMP 36.8; O2SAT 98
[2024-11-12 20:55] VITALS: BP 138/83; PULSE 75; RESP 16; TEMP 36.8; O2SAT 98
== END 2024-11-12 20:58 | disposition home or self-care (01) ==
PROVIDERS: Registered Nurse Emergency; Emergency Provider Internal Medicine; PCP Internal Medicine
DX: R33.8 Other retention of urine (principal); E11.9 Type 2 diabetes mellitus without complications; I10 Essential (primary) hypertension; E78.5 Hyperlipidemia, unspecified; Z87.891 Personal history of nicotine dependence; Z96.0 Presence of urogenital implants
CPT/HCPCS: 51798; 81001; 87086; 87088; 87186; 99283; 99285

== ENCOUNTER 2024-11-19 21:52 | Emergency (ER) | payer OTHER, SELFPAY ==
[2024-11-19 21:56] VITALS: BP 135/74; PULSE 79; RESP 16; TEMP 37; O2SAT 97; BMI 32.2
[2024-11-19 22:15] LABS: MANUAL DIFF FLAG NO
[2024-11-19 22:16] LABS: Basophils Absolute Auto 0.1 X10*3/uL (0.0-0.2); Basophils Percent Auto 0.5 % (0-2); Eosinophils Absolute Auto 0.3 X10*3/uL (0.0-0.4); Eosinophils Percent Auto 2.6 % (0-4); Hematocrit 39.9 % (42.0-52.0); Hemoglobin 13.9 g/dl (14.0-18.0); Imm Gran Abs Auto 0.02 X10*3/uL (0.00-0.03); Imm Gran Pct Auto 0.2 % (0.0-0.4); Lymphocytes Absolute Auto 1.7 X10*3/uL (1.2-4.9); Lymphocytes Percent Auto 17.5 % (20-40); Mean Corpuscular HGB Conc 34.8 g/dl (31.0-36.0); Mean Corpuscular Hemoglobin 28.7 pg (27.0-33.0); Mean Corpuscular Volume 82.4 fL (80.0-98.0); Mean Platelet Volume 10.2 fL (9.4-12.4); Monocytes Absolute Auto 0.9 X10*3/uL (0.1-1.2); Monocytes Percent Auto 8.7 % (2-11); Neutrophils Absolute Auto 6.9 x10*3/uL (2.0-8.3); Neutrophils Percent Auto 70.5 % (45-73); Platelet Count 213 X10*3/uL (160-400); Red Blood Count 4.84 X10*6/uL (4.60-5.80); Red Cell Distribution Width 13.6 % (11.0-16.0); White Blood Count 9.7 X10*3/uL (4.8-10.8)
--- OUTSIDE RECORDS SUMMARY | 2024-11-19 22:22 | XMS_ITS | Encounter Summary ---
Author Organization [employer] Address [address] [facility] [address] [place] [address] Care Team Providers Care Aerologist Name Role Phone Kerby, [facility] Primary Care Provider [phone] Reason for Visit * Reason Comments Med Refill Encounter Details Date Type Department Care Team ([facility] st Contact Info) Description 08/31/2024 Refill [facility] [address] [place] [address] Kerby [facility] [address] [place] [address] Primary hypertension Social History Tobacco Use Types [...] Care Team (Late st Contact Info) Description 12/12/2024 1:30 PM EDT Medication Management [facility] [address] [place] [id number] Elena Nichols, PharmD [address] [place] [address] 01/11/2025 2:00 PM EDT Office Visit [facility] [address] [place] [id number] Tg Milner FNP [address] [place] [address] documented as of this encounter Visit Diagnoses Diagnosis Primary hypertension Unspecified essential hypertension documented in this encounter Additional Health Concerns Assessment Noted Time PHQ-9 Depression Total Score: 0 07/22/19 25 10:03 AM EST documented as of this encounter Care Teams Aerologist Relationship Specialty Start Date End Date Tg Milner FNP [address] [place] [address] PCP - General Family Medicine 04/28/22 documented as of this encounter
--- NOTE | 2024-11-19 22:28 | PC.NURSE ---
bladder scan done, 0 ml in bladder, re done multiple times to confirm
--- NOTE | 2024-11-19 22:29 | ED_ITS ---
HPI - Male Genitourinary General Chief complaint: Urogenital-Male Stated complaint: body pain Time Seen by Provider: 11/19/24 22:28 Source: patient Mode of arrival: ambulatory Limitations: no limitations History of Present Illness ED Provider: HPI Narrative: Patient's history of BPH and urinary retention has a Anaya catheter placed 3 weeks ago comes here as it is unable to urinate for last 6 hours patient's discomfort in suprapubic area Related Data Home Medications ?Medication ?Instructions ?Recorded ?Confirmed aspirin 81 mg tablet,delayed 81 mg PO DAILY 03/29/20 0 10/05/24 release (Adult Aspirin Regimen) gabapentin 800 mg tablet 800 mg PO BID 03/29/2010/05 metformin 1,000 mg tablet 1,000 mg PO BID 03/29/2012/23 metoprolol succinate 200 mg 200 mg PO DAILY 03/29/20 0 10/05/24 tablet,extended release 24 hr alcohol swabs (Alcohol Prep Pads) pad topical DAILY 10/05/24 blood sugar diagnostic (FreeStyle #10 ea 08/29/2112/23 Lite Strips) lancets 33 gauge (TRUEplus Lancets) #100 ea 08/29/21 0 10/05/24 latanoprost 0.005 % eye drops 1 drp ophthalmic (eye) B EDTIME 08/29/21 10/05/24 melatonin 5 mg tablet 10 mg PO BEDTIME PRN insomni a 08/29/21 10/05/24 pantoprazole 20 mg tablet,delayed 20 mg PO DAILY 08/2910/05/24 release amlodipine 10 mg tablet 10 mg PO DAILY 02/25/2412/23 dulaglutide 4.5 mg/0.5 mL mg subcut 02/25/24 10/05/24 subcutaneous pen injector (Trulicity) pravastatin 40 mg tablet 40 mg PO DAILY 02/25/2412/23 empagliflozin 25 mg tablet 25 mg PO DAILY 06/15/2412/23 (Jardiance) acetaminophen 500 mg tablet 500 mg PO Q6H PRN mild dyllan n 10/05/24 10/05/24 Previous Rx's ?Medication ?Instructions ?Recorded diphenoxylate-atropine 2.5 1 tab PO DAILY PRN diarrhea #4 tabs 01/21/21 mg-0.025 mg tablet (Lomotil) clotrimazole-betamethasone 1 1 appl topical BID 4 week s #45 08/29/21 %-0.05 % topical cream grams docusate sodium 250 mg capsule 250 mg PO BID PRN const ipation #10 09/01/24 caps bisacodyl 5 mg tablet,delayed 5 mg PO ONCE 1 day #3 ta bs 09/16/24 release polyethylene glycol 3350 17 238 g PO ONCE laxative eff ect 1 09/16/24 gram/dose oral powder (Miralax) day #238 grams cefuroxime axetil 500 mg tablet 500 mg PO BID 10 days #20 tabs 10/07/24 doxazosin 4 mg tablet 4 mg PO BEDTIME 30 days #30 tabs 10/28/24 finasteride 5 mg tablet 5 mg PO DAILY 90 days #90 ta bs 10/28/24 ciprofloxacin HCl 500 mg tablet 500 mg PO BID #20 tabs 11/20/24 (Cipro) Allergies Allergy/AdvReac Type Severity Reaction Status Date / Time No Known Allergies (No Known Allergy Verified 11/19/24 21:58 Allergies*) Review of Systems 2 Review of Systems: Yes all other systems are reviewed and are negative PMFSH Past Medical History Medical History Osteomyelitis DM2 (diabetes mellitus, type 2) Essential hypertension Right lumbar radiculopathy Arthritis of both knees Balanitis Type 2 diabetes mellitus with polyneuropathy Hyperlipidemia LDL goal <100 Obesity due to excess calories Type 2 diabetes mellitus with hyperglycemia, with long-term current use of insulin Surgical History H/O colonoscopy Hx of tonsillectomy Hx of appendectomy Family History Family History Father No problems noted. 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 Oriented X3. No acute distress. Eyes: No pallor or icterus ENT: Pharynx normal. Oral Mucosa moist Neck: Normal inspection. Neck supple. CVS: Normal heart rate and rhythm. Pulses normal. Respiratory: No respiratory distress. Equal air entry bilateral, no wheezing/rales/rhonchi Abdomen: Soft and suprapubic Fullness Bowel sounds are present, no mass palpable, no CVA tenderness Skin: Skin warm and dry. Normal skin color. Normal skin turgor. Extremities: No lower extremity edema. No calf tenderness Neuro: Oriented X 3. No motor deficit. No sensory deficit.No cerebellar signs , cranial nerves II-XII intact Medical Decision Making Medical Decision Making [facility] Narrative: Anaya catheter was flushed and started working again drained about 600 cc of urine Lab Data [facility] Lab Attestation statement: I reviewed the patient's lab results. 11/19/24 22:12 11/19/24 22:12 Labs: Lab Results 11/19/24 11/19/24 Range/Units 22:12 22:39 WBC 9.7 (4.8-10.8) X10*3/uL RBC 4.84 (4.60-5.80) X10*6/uL Hgb 13.9 L (14.0-18.0) g/dl Hct 39.9 L (42.0-52.0) % MCV 82.4 (80.0-98.0) fL MCH 28.7 (27.0-33.0) pg MCHC 34.8 (31.0-36.0) g/dl RDW 13.6 (11.0-16.0) % Plt Count 213 (160-400) X10*3/uL MPV 10.2 (9.4-12.4) fL Immature Gran % (Auto) 0.2 (0.0-0.4) % Neut % (Auto) 70.5 (45-73) % Lymph % (Auto) 17.5 L (20-40) % [place] % (Auto) 8.7 (2-11) % Eos % (Auto) 2.6 (0-4) % Baso % (Auto) 0.5 (0-2) % Lymph # (Auto) 1.7 (1.2-4.9) X10*3/uL [place] # (Auto) 0.9 (0.1-1.2) X10*3/uL Eos # (Auto) 0.3 (0.0-0.4) X10*3/uL Baso # (Auto) 0.1 (0.0-0.2) X10*3/uL Abs Immat Gran (auto) 0.02 (0.00-0.03) X10*3/uL Absolute Neuts (auto) 6.9 (2.0-8.3) x10*3/uL Absolute Nucleated RBC 0.000 (0.0-0.012) X10*3/uL Nucleated RBC % (auto) 0.0 (0.0-0.2) /100WBC Sodium 134 L (135-145) mmol/L Potassium 4.8 (3.3-5.1) mmol/L Chloride 102 (96-108) mmol/L Carbon Dioxide 23 (22-29) mmol/L Anion Gap 14 (12-20) BUN 37 H (9-16) mg/dL Creatinine 1.89 H (0.5-1.4) mg/dL Estim Creat Clear Calc 45.9 Estimated GFR 36 Random Glucose 275 H (60-115) mg/dL Calcium 9.5 (8.4-10.2) mg/dL Total Bilirubin 0.4 (0.0-1.0) mg/dL AST 28 (5-37) U/L ALT 28 (0-40) U/L Alkaline Phosphatase 60 (39-117) U/L Total Protein 8.3 H (6.5-8.0) g/dL Albumin 4.2 (3.5-5.0) g/dL Urine Color Yellow Urine Appearance Turbid Urine pH 8.5 (5.0-9.0) Ur Specific [place] 1.025 (1.005-1.025) Urine Protein 100 (2+) H (Neg-Trace) mg/dL Urine Glucose (UA) >=1000 H (Negative) mg/dL Urine Ketones Negative (Negative) mg/dL Urine Blood Small (1+) H (Negative) Urine Nitrite Negative (Negative) Ur Leukocyte Esterase Large (3+) H (Negative) Urine RBC 0-2 (0-2) /HPF Urine WBC >50 H (0-5) /HPF Ur Squamous Epith Cells 0-2 (0-2) /HPF Urine Bacteria 4+ (None Seen) Hyaline Casts 0-2 (0-2) /LPF Discharge Plan Discharge Clinical Impression: Urinary tract infection, Anaya catheter problem Patient Disposition: Home, Self-Care Instructions: Urinary Tract Infection in Men (DC) Additional Instructions: Drink plenty of fluids Take antibiotic as prescribed for your chronic urinary tract infection Follow up with urologist Prescriptions: New ciprofloxacin HCl [Cipro] 500 mg tablet 500 mg PO BID Qty: 20 0RF No Action diphenoxylate-atropine [Lomotil] 2.5-0.025 mg tablet 1 tab PO DAILY PRN (Reason: diarrhea) Qty: 4 0RF docusate sodium 250 mg capsule 250 mg PO BID PRN (Reason: constipation) Qty: 10 0RF cefuroxime axetil 500 mg tablet 500 mg PO BID 10 Days Qty: 20 0RF metformin 1,000 mg tablet 1,000 mg PO BID gabapentin 800 mg tablet 800 mg PO BID metoprolol succinate 200 mg tablet extended release 24 hr 200 mg PO DAILY aspirin [Adult Aspirin Regimen] 81 mg tablet,delayed release (DR/EC) 81 mg PO DAILY melatonin 5 mg tablet 10 mg PO BEDTIME PRN (Reason: insomnia) pantoprazole 20 mg tablet,delayed release (DR/EC) 20 mg PO DAILY alcohol swabs [Alcohol Prep Pads] Pads, Medicated topical DAILY (DME) FreeStyle Lite Strips Strip See Rx Instructions Not Applicable DAILY Qty: 10 Rx Instructions: As directed latanoprost 0.005 % drops 1 drp ophthalmic (eye) BEDTIME (DME) lancets [TRUEplus Lancets] 33 gauge misc See Rx Instructions Not Applicable DAILY Qty: 100 Rx Instructions: As directed clotrimazole-betamethasone 1-0.05 % cream 1 appl topical BID 28 Days Qty: 45 0RF Rx Instructions: Apply thin coat 2 times per day amlodipine 10 mg tablet 10 mg PO DAILY Trulicity 4.5 mg/0.5 mL pen injector subcut pravastatin 40 mg tablet 40 mg PO DAILY Jardiance 25 mg tablet 25 mg PO DAILY polyethylene glycol 3350 [Miralax] 17 gram/dose powder 238 g PO ONCE 1 Days Qty: 238 0RF Rx Instructions: Take as directed by mouth the day before your procedure. bisacodyl 5 mg tablet,delayed release (DR/EC) 5 mg PO ONCE 1 Days Qty: 3 0RF Rx Instructions: per colonoscopy instructions acetaminophen 500 mg tablet 500 mg PO Q6H PRN (Reason: mild pain) doxazosin 4 mg tablet 4 mg PO BEDTIME 30 Days Qty: 30 1RF finasteride 5 mg tablet 5 mg PO DAILY 90 Days Qty: 90 1RF Print Language: Ghanaian
[2024-11-19 22:31] LABS: Alanine Aminotransferase 28 U/L (0-40); Albumin Level 4.2 g/dL (3.5-5.0); Alkaline Phosphatase 60 U/L (39-117); Anion Gap 14 (12-20); Aspartate Amino Transferase 28 U/L (5-37); Bilirubin Total 0.4 mg/dL (0.0-1.0); Blood Urea Nitrogen 37 mg/dL (9-16); Calcium 9.5 mg/dL (8.4-10.2); Carbon Dioxide 23 mmol/L (22-29); Chloride 102 mmol/L (96-108); Creatinine Clr Calc Pharmacy 45.9; Estimated Glomerular Filt Rate 36; Glucose Random 275 mg/dL (60-115); Potassium 4.8 mmol/L (3.3-5.1); Sodium 134 mmol/L (135-145); Total Protein 8.3 g/dL (6.5-8.0)
[2024-11-19 22:43] VITALS: BP 135/75; PULSE 68; RESP 15; TEMP 36.8; O2SAT 100
[2024-11-19 22:54] LABS: Appearance Urine Turbid; Color Urine Yellow; Glucose Urine UA >=1000 mg/dL (Negative); Leukocyte Esterase Urine Large (3+) (Negative); Nitrite Urine Negative (Negative); PH 8.5 (5.0-9.0); Specific Gravity - Urine 1.025 (1.005-1.025); UMIC TRIGGER UACC YES; Urine Blood Small (1+) (Negative); Urine Ketones Negative (Negative); Urine Protein 100 (2+) mg/dL (Neg-Trace)
--- NOTE | 2024-11-19 22:54 | PC.NURSE ---
provider flushed catheter tubing, urine now flowing into bag. new bag attached as well
[2024-11-19 23:08] LABS: Bacteria Urine 4+ (None Seen); Hyaline Casts Urine 0-2 /LPF (0-2); RBC Urine 0-2 /HPF (0-2); Squamous Epithelial Cell Urine 0-2 /HPF (0-2); UACC Culture Trigger YES; WBC Urine >50 /HPF (0-5)
[2024-11-20] MEDS: levoFLOXacin 500 MG TABLET PO (00:13)
[2024-11-20 00:15] VITALS: BP 139/75; PULSE 68; RESP 20; TEMP 36.7; O2SAT 96
[2024-11-20 00:17] VITALS: BP 139/75; PULSE 68; RESP 20; TEMP 36.7; O2SAT 96
== END 2024-11-20 00:25 | disposition home or self-care (01) ==
PROVIDERS: Emergency Provider Internal Medicine; PCP Internal Medicine
DX: N39.0 Urinary tract infection, site not specified (principal); Z96.0 Presence of urogenital implants; Z46.6 Encounter for fitting and adjustment of urinary device; E11.9 Type 2 diabetes mellitus without complications; I10 Essential (primary) hypertension; E78.5 Hyperlipidemia, unspecified; Z79.82 Long term (current) use of aspirin; Z79.84 Long term (current) use of oral hypoglycemic drugs; Z79.85 Long-term (current) use of injectable non-insulin antidiabetic drugs; Z79.02 Long term (current) use of antithrombotics/antiplatelets; Z79.899 Other long term (current) drug therapy; Z87.891 Personal history of nicotine dependence
CPT/HCPCS: 36415; 80053; 81001; 85025; 87086; 87088; 87186; 99283; 99284

== ENCOUNTER 2024-11-23 09:19 | Outpatient (AMB) | payer OTHER, SELFPAY ==
--- NOTE | 2024-11-23 09:46 | AM.OFFVISNUR ---
Intake Visit Reasons: 4w/VT Allergies No Known Allergies (No Known Allergies*) Allergy (Verified 11/19/24 21:58) Assessment & Plan Assessment & Plan Orders: Orders AMB Post Void Residual by ultrasound Today R33.9 - Retention of urine, unspecified AMB Bladder/Catheter Procedure Today R33.9 - Retention of urine, unspecified Coding
--- NOTE | 2024-11-23 10:00 | MHC.OFFVIS ---
Intake Visit Reasons: 4w/VT Allergies No Known Allergies (No Known Allergies*) Allergy (Verified 11/19/24 21:58) Medication List - Last Reconciled 11/23/24 by Moy Jarrell MD acetaminophen 500 mg PO Q6H PRN alcohol swabs (Alcohol Prep Pads) pad topical DAILY amlodipine 10 mg PO DAILY aspirin (Adult Aspirin Regimen) 81 mg PO DAILY bisacodyl 5 mg PO ONCE 1 day blood sugar diagnostic (FreeStyle Lite Strips) As directed diphenoxylate-atropine 2.5-0.025 mg (Lomotil) 1 tab PO DAILY PRN docusate sodium 250 mg PO BID PRN doxazosin 4 mg PO BEDTIME 30 days dulaglutide (Trulicity) mg subcut empagliflozin (Jardiance) 25 mg PO DAILY finasteride 5 mg PO DAILY 90 days gabapentin 800 mg PO BID lancets (TRUEplus Lancets) As directed latanoprost 0.005% 1 drp ophthalmic (eye) BEDTIME melatonin 10 mg PO BEDTIME PRN metformin 1,000 mg PO BID metoprolol succinate ER 200 mg PO DAILY pantoprazole 20 mg PO DAILY polyethylene glycol 3350 (Miralax) 238 grams PO ONCE 1 day pravastatin 40 mg PO DAILY HPI Comments Details: Brandt is a pleasant male. He is seen for the following urologic conditions - balanitis, phimosis - urinary retention Voiding trial failure x2 Cystoscopy large median lobe Recommend GreenLight laser prostatectomy with cover suprapubic tube Urinary retention 10/23 urinary retention Seen in emergency room 1500 cc was associated with bowel constipation Background diabetes Phimosis Diabetic Most recent HbA1c 8.0 Recurrent phimosis with difficulty retracting foreskin and cracking with bleeding Recommend circumcision [employer] Medical History Osteomyelitis DM2 (diabetes mellitus, type 2) Essential hypertension Right lumbar radiculopathy Arthritis of both knees Balanitis Type 2 diabetes mellitus with polyneuropathy Hyperlipidemia LDL goal <100 Obesity due to excess calories Type 2 diabetes mellitus with hyperglycemia, with long-term current use of insulin Surgical History H/O colonoscopy Hx of tonsillectomy Hx of appendectomy Family History Father No problems noted. 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 [employer] Review of Systems Const Denies chills and Denies fever(s) Card Reports no additional complaints and Denies syncope Resp Denies cough GI Denies abdominal pain and Denies heartburn Reports as per HPI and Denies change in libido Neuro Denies syncope Psych Denies change in libido Endo Denies change in libido Physical Exam Const General: cooperative, healthy appearing, comfortable and no acute distress Orientation/consciousness: patient oriented x3 HEENT Face and sinus: Yes normal facial exam Mouth: moist mucous membranes Neck Neck: Yes normal visual inspection, Yes full ROM and Yes trachea midline Chest Chest palpation & inspection: normal inspection of the chest Resp Effort & Inspection: normal respiratory effort, able to speak in complete sentences and no respiratory distress GI Inspection: Yes normal to inspection Back/Spine/Pelvis Cervical Spine: normal cervical lordosis Thoracic/Lumbar Spine: thoracic and lumbar spine normal to inspection Skin General skin exam: no rashes or lesions noted Neuro General: patient oriented x3, gait normal, tone normal and moves all extremities Extrem General: Yes normal to inspection and Yes capillary refill normal Office Procedures Bladder/Catheter Procedure Details: Patient presents to office for voiding trial after failing other VT and having cystoscopy appointment. 120mls sterile water instilled through catheter, patient tolerated well. Removed 16 fr bo catheter, patient tolerated removal well. Patient not able to void. Reviewed with Dr. Jarrell- will discuss with patient having Greenlight procedure done. New 16fr coude bo catheter 10ml balloon flip valve inserted, patient tolerated well. Patient will make 4 week appt with nursing for cath change at checkout until procedure scheduled 39878-[id number] of Bladder [id number] Temporary Bladder Catheter Procedure code (CPT) selection complete Assessment & Plan Assessment & Plan (1) Urinary retention with incomplete bladder emptying: Code(s): R33.9 - Retention of urine, unspecified Category: Medical Plan Urinary retention setting of diabetes We discussed the nature of the decision and reasonable options for performing a prostate intervention. Interventions include TURP, GreenLight laser enucleation of the prostate, GreenLight laser ablation of the prostate, transurethral incision of the prostate, and I-Tend prostate procedure. Options such as medical therapy were discussed. The relative uncertainties and benefits related to each alternate procedure were adequately discussed. General surgical risks including, but not limited to, pain, bleeding, infection, myocardial infarction, pulmonary embolus, deep vein thrombosis and cerebrovascular accident which may result in further hospitalization were discussed. Full disclosure of the procedure as well as all major risks, benefits and complications were discussed including but not limited to damage to the urethra or bladder neck, recurrent BPH, retrograde ejaculation, bladder infection, urge, de yusef frequency, incomplete emptying, dysuria, remote chance of erectile dysfunction, epididymitis, and meatal stenosis. The success rate of the procedure was discussed. Success of the procedure in the short-term does not necessarily guarantee that long-term success will be maintained. Suitable follow up will need to be maintained. The patient showed understanding of discussion. An opportunity was provided for questions to be answered and wishes to proceed with the following procedure. - GreenLight laser with suprapubic tube insertion Orders: Orders AMB Bladder/Catheter Procedure Today R33.9 - Retention of urine, unspecified Medications: New ascorbic acid (vitamin C) 1,000 mg PO DAILY 90 tabs 1RF 90 days N39.0 - Urinary tract infection, site not specified, T83.511A - Infection and inflammatory reaction due to indwelling urethral catheter, initial encounter methenamine hippurate 1 g PO DAILY 90 tabs 1RF 90 days N39.0 - Urinary tract infection, site not specified, T83.511A - Infection and inflammatory reaction due to indwelling urethral catheter, initial encounter Patient Instructions: This note is constructed using voice recognition software. While every effort has been made to ensure accuracy radiation oncology manager errors may have been included. Imaging studies, laboratory and physical exam results were discussed and reviewed in detail. No major barriers to patient understanding were identified. An opportunity to ask questions regarding the treatment plan was provided. All questions were answered. The patient expressed understanding and agreement with the above treatment plan. The patient is aware they should contact our office by phone for worsening of their current condition or the appearance of new urologic symptoms. Compliance is encouraged with any medications and followup testing that is ordered. It is a privilege to participate in the urologic care of your patient. If you have any questions or concerns regarding treatment for the above conditions, or other urologic issues, please do not hesitate to contact me. The office telephone contact is [phone]. Sincerely, Dr Moy Jarrell MD, [facility] - Urology Compassionate Specialist Care for the Genitourinary System Coding Level of Care Code Est Pt Level 4 (22019) Diagnoses Urinary retention with incomplete bladder emptying R33.9 CPT Codes Bladder/Catheter Procedure - CPT: 35692-Vpdxzwayjy of Bladder ([id number]) Bladder/Catheter Procedure - CPT: 52483-Vkqpnq Temporary Bladder Catheter ([id number])
--- OUTSIDE RECORDS SUMMARY | 2024-11-23 10:13 | XMS_ITS | Encounter Summary ---
Author Organization [facility] Address [address] [place] [address] Care Team Providers Care Grader Marker Name Role Phone [place], [facility] Primary Care Provider [phone] Reason for Visit * Reason Comments Med Refill Encounter Details Date Type Department Care Team ([facility] st Contact Info) Description 08/31/2024 Refill [facility] [address] [place] [address] [place] [facility] [address] [place] [address] Primary hypertension Social History Tobacco Use Types [...] Description 12/12/2024 1:30 PM EDT Medication Management [facility] [address] [place] [phone] Elena Nichols, PharmD [address] [place] [address] 01/11/2025 2:00 PM EDT Office Visit [facility] [address] [place] [phone] Tg Milner FNP [address] [place] [address] documented as of this encounter Visit Diagnoses Diagnosis Primary hypertension Unspecified essential hypertension documented in this encounter Additional Health Concerns Assessment Noted Time PHQ-9 Depression Total Score: 0 07/22/19 25 10:03 AM EST documented as of this encounter Care Teams Grader Marker Relationship Specialty Start Date End Date Tg Milner FNP [address] [place] [address] PCP - General Family Medicine 04/28/22 documented as of this encounter
== END 2024-11-23 10:42 | disposition home or self-care (01) ==
LOC: HO.HUSH 09:19
PROVIDERS: Visit Provider Urology
DX: R33.9 Retention of urine, unspecified (principal)
CPT/HCPCS: 51700; 99214

== ENCOUNTER → 2024-11-23 09:19 | Outpatient (BNVA) | payer OTHER, SELFPAY | PROVIDERS: Visit Provider Urology | DX: N48.1 Balanitis (principal); R33.9 Retention of urine, unspecified; E11.9 Type 2 diabetes mellitus without complications | CPT/HCPCS: 51700; 99212 ==

== ENCOUNTER 2024-12-07 20:32 | Emergency (ER) | payer OTHER, SELFPAY ==
[2024-12-07 20:37] VITALS: BP 169/97; PULSE 83; RESP 20; TEMP 36.4; O2SAT 100; BMI 32.1
[2024-12-07 21:06] LABS: MANUAL DIFF FLAG NO
[2024-12-07 21:10] LABS: Hematocrit 42.3 % (42.0-52.0); Hemoglobin 14.5 g/dl (14.0-18.0); Imm Gran Abs Auto 0.07 X10*3/uL (0.00-0.03); Imm Gran Pct Auto 0.8 % (0.0-0.4); Lymphocytes Absolute Auto 1.7 X10*3/uL (1.2-4.9); Mean Corpuscular HGB Conc 34.3 g/dl (31.0-36.0); Mean Corpuscular Hemoglobin 28.0 pg (27.0-33.0); Mean Corpuscular Volume 81.7 fL (80.0-98.0); NRBC Abs Auto 0.000 X10*3/uL (0.0-0.012); NRBC Pct Auto 0.0 /100WBC (0.0-0.2); Platelet Count 240 X10*3/uL (160-400); Red Blood Count 5.18 X10*6/uL (4.60-5.80); White Blood Count 8.3 X10*3/uL (4.8-10.8)
--- OUTSIDE RECORDS SUMMARY | 2024-12-07 21:24 | XMS_ITS | Clinical Summary ---
Author Organization [address] [facility] Address [address] [place] [address] Phone Care Team Providers Care Thermograph Operator Name Role Phone [facility] Primary Care Provider [phone] Allergies No known active allergies Medications acetaminophen [...] injector injection Inject into the skin. Active Encounters Date Type Department Care Team Description 09/13/2024 1:25 AM EDT - 09/13/2024 6:03 AM EDT Emergency [facility] Emergency [address] [place] [address] Paloma Perry MD Hemorrhagic cystitis [...] 95 09/13/2024 2:10 AM EDT Temperature 36.8 C (98.3 F) 09/13/2024 2:10 AM EDT Respiratory Rate 18 09/13/2024 2:10 AM EDT [...] l Test (HGBA1C) 01/19/2025 07/22/2024 Influenza Vaccine (#1) 2025 Depression Screening 07/22/2025 07/22/2024 Diabetes: Annual GFR (Glomerular Filtration Rate) 09/12/2025 09/12/2024, 09/01/2024 Hypertension/CHF/CAD Annual BMP Blood Test 09/12/2025 09/12/2024, 09/01/2024 DTaP,Tdap,and Td Vaccines (3 - Td or Tdap) 12/24/2028 12/24/2018, 09/01/2009 Cholesterol Screening (Lipid Panel) 01/21/2029 01/22/2024 Hepatitis C Screening Completed 09/01/2022 HIB Vaccines [...] microscopic and culture (09/13/2024 2:32 AM EDT) Pathologist [facility] Specific [place] Urine 1.020 1.003 - 1.030 LAB URINALYSIS - AUTOMATED METHOD 09/13/2024 3:[address] [facility] pH, Urine 8.0 5.0 - 8.0 pH LAB URINALYSIS - AUTOMATED METHOD 09/13/2024 3:[address] [facility] Leukocytes, Urine Moderate(A) Negative LAB URINALYSIS - AUTOMATED METHOD 09/13/2024 3:[address] [facility] Nitrite, Urine Positive(A) Negative LAB URINALYSIS - AUTOMATED METHOD 09/13/2024 3:[address] [facility] Protein, Urine >=300(A) <=Trace mg/dL LAB URINALYSIS - AUTOMATED METHOD 09/13/2024 3:[address] [facility] Glucose, Urine >=1000(A) Negative mg/dL LAB URINALYSIS - AUTOMATED METHOD 09/13/2024 3:[address] [facility] Ketones, Urine Negative Negative mg/dL LAB URINALYSIS - AUTOMATED METHOD 09/13/2024 3:[address] [facility] Urobilinogen , Urine 0.2 0.2 - 1.0 mg/dL LAB URINALYSIS - AUTOMATED METHOD 09/13/2024 3:[address] [facility] Bilirubin, Urine Small(A) Negative LAB URINALYSIS - AUTOMATED METHOD 09/13/2024 3:[address] [facility] Blood, Urine Large(A) Negative LAB URINALYSIS - AUTOMATED METHOD 09/13/2024 3:[address] [facility] RBC, Urine 100(H) 0 - 4 /HPF 09/13/2024 3:25 AM EDT [facility] WBC, Urine 100(H) 0 - 4 /HPF 09/13/2024 3:25 AM EDT [facility] Squamous Epithelial, Urine 4 0 - 60 /LPF 09/13/2024 3:25 AM EDT [facility] Bacteria, Urine Moderate(A) Negative /HPF 09/13/2024 3:25 AM EDT [facility] Hyaline Casts, Urine 4(H) 0 - 3 /LPF 09/13/2024 3:25 AM EDT [facility] Urine Indwelling urinary catheter / Unknown Non-blood Collection / Unknown 09/13/2024 2:32 AM EDT 09/13/2024 3:03 AM EDT Paloma Perry MD LAB URINE ORDERABLES Fin al Result [facility] [address] [place] [address], [place] [phone] * [place] urine culture tube (09/13/2024 2:32 AM EDT) Extra Tube Hold for add-ons. 09/13/2024 5:01 AM EDT [facility] Comment:Auto resulted. Urine Indwelling urinary catheter / Unknown Non-blood Collection / Unknown 09/13/2024 2:32 AM EDT 09/13/2024 3:03 AM EDT Paloma Perry MD LAB URINE ORDERABLES Fin al Result Performing Organization Address City/[facility]/ZIP Co de Phone Number [facility] [address] [place] [address], [place] [phone] * (ABNORMAL) Culture urine (09/13/2024 2:32 AM [...] us Paloma Perry MD LAB MICROBIOLOGY - [facility] AL ORDERABLES Final Result [facility] [address] [place] [address], * Respiratory virus panel molecular study (09/13/2024 1:36 AM EDT) Pathologist [facility] Adenovirus Detection by PCR Not Detected Not [...] AM EDT Testing was performed using the [employer] Respiratory Pathogen PCR Assay. All results must [...] MICROBIOLOGY - GENER AL ORDERABLES Final Result [facility] [address] [place] [address], * ECG-Annotated (09/13/2024) us Provider Onbase ECG ORDERABLES Final Result * (ABNORMAL) CBC auto differential (09/12/2024 7:05 PM EDT) WBC 6.0 4.8 - 10.8 K/mcL LAB HEMETOLOGY METHOD 09/12/2024 7:44 PM EDT [facility] RBC 4.70 4.50 - 5.50 M/mcL LAB HEMETOLOGY METHOD 09/12/2024 7:44 PM EDT [facility] Hemoglobin 13.1(L) 13.5 - 17.5 g/dL LAB HEMETOLOGY METHOD 09/12/2024 7:44 PM EDT [facility] Hematocrit 39.6(L) 42.0 - 54.0 % LAB HEMETOLOGY METHOD 09/12/2024 7:44 PM EDT [facility] MCV 85.0 79.0 - 98.0 FL LAB HEMETOLOGY METHOD 09/12/2024 7:44 PM EDT [facility] MCH 28.1 27.0 - 32.0 pcg LAB HEMETOLOGY METHOD 09/12/2024 7:[address] [facility] MCHC 33.1 32.0 - 37.0 g/dL LAB HEMETOLOGY METHOD 09/12/2024 7:[address] [facility] RDW 13.9 11.0 - 15.0 % LAB HEMETOLOGY METHOD 09/12/2024 7:[address] [facility] Platelets 237 130 - 400 K/mcL LAB HEMETOLOGY METHOD 09/12/2024 7:[address] [facility] MPV 10.2 7.0 - 11.0 FL LAB HEMETOLOGY METHOD 09/12/2024 7:[address] [facility] NRBC 0.0 <1.0 % LAB HEMETOLOGY METHOD 09/12/2024 7:[address] [facility] NRBC Absolute 0.00 <0.10 K/mcL LAB HEMETOLOGY METHOD 09/12/2024 7:[address] [facility] Neutrophils Relative 52.6 % LAB HEMETOLOGY METHOD 09/12/2024 7:[address] [facility] Lymphocytes Relative 26.1 % LAB HEMETOLOGY METHOD 09/12/2024 7:[address] [facility] Monocytes Relative 14.9 % LAB HEMETOLOGY METHOD 09/12/2024 7:[address] [facility] Eosinophils Relative 4.4 % LAB HEMETOLOGY METHOD 09/12/2024 7:[address] [facility] Basophils Relative 1.2 % LAB HEMETOLOGY METHOD 09/12/2024 7:[address] [facility] Immature Granulocytes Relative 0.8 % LAB HEMETOLOGY METHOD 09/12/2024 7:44 PM EDT [facility] Neutrophils Absolute 3.14 1.50 - 7.00 K/mcL LAB HEMETOLOGY METHOD 09/12/2024 7:44 PM EDT [facility] Lymphocytes Absolute 1.56 1.00 - 5.00 K/mcL LAB HEMETOLOGY METHOD 09/12/2024 7:44 PM EDT [facility] Monocytes Absolute 0.89 0.20 - 1.00 K/mcL LAB HEMETOLOGY METHOD 09/12/2024 7:44 PM EDT [facility] Eosinophils Absolute 0.26 0.00 - 0.50 K/mcL LAB HEMETOLOGY METHOD 09/12/2024 7:44 PM EDT [facility] Basophils Absolute 0.07 0.00 - 0.20 K/mcL LAB HEMETOLOGY METHOD 09/12/2024 7:44 PM EDT [facility] Immature Granulocytes Absolute 0.05(H) 0.00 - 0.03 K/mcL LAB HEMETOLOGY METHOD 09/12/2024 7:44 PM EDT [facility] Blood Venous blood specimen / Unknown Venipuncture / Unknown 09/12/2024 7:05 PM EDT 09/12/2024 7:34 PM EDT us Paloma Perry MD LAB BLOOD ORDERABLES Fin al Result [facility] [address] [place] [address], * Magnesium (09/12/2024 7:05 PM EDT) Magnesium 1.9 1.9 - 2.6 mg/dL LAB CHEMISTRY METHOD 09/12/2024 8:05 PM EDT [facility] Blood Venous blood specimen / Unknown Venipuncture / Unknown 09/12/2024 7:05 PM EDT 09/12/2024 7:34 PM EDT Paloma Perry MD LAB BLOOD ORDERABLES Fin al Result [facility] [address] [place] [address], [place] [phone] * (ABNORMAL) Basic metabolic panel (09/12/2024 7:05 PM EDT) Sodium 132(L) 133 - 145 mmol/L LAB CHEMISTRY METHOD 09/12/2024 8:[address] [facility] Potassium 4.3 3.5 - 5.5 mmol/L LAB CHEMISTRY METHOD 09/12/2024 8:[address] [facility] Chloride 100 96 - 110 mmol/L LAB CHEMISTRY METHOD 09/12/2024 8:[address] [facility] CO2 25 21 - 32 mmol/L LAB CHEMISTRY METHOD 09/12/2024 8:[address] [facility] Anion Gap 7 3 - 11 LAB CHEMISTRY METHOD 09/12/2024 8:[address] [facility] Glucose 216(H) 70 - 100 mg/dL LAB CHEMISTRY METHOD 09/12/2024 8:[address] [facility] BUN 31(H) 5 - 25 mg/dL LAB CHEMISTRY METHOD 09/12/2024 8:[address] [facility] Creatinine 1.87(H) 0.70 - 1.30 mg/dL LAB CHEMISTRY METHOD 09/12/2024 8:[address] [facility] eGFR 39(L) >=60 mL/min/1. 73m2 LAB CHEMISTRY METHOD 09/12/2024 8:[address] [facility] Comment:Calculation based on the Chronic Kidney Disease Epidemiology Collaboration (CKD-EPI) equation refit without adjustment for race. BUN/Creatinine Ratio 16.6 LAB [...] al Result [facility] [address] [place] [address], * ECG 12 lead (09/12/2024 7:03 PM EDT) Ventricular Rate ECG 111 BPM GEMUSE Atrial Rate 111 BPM GEMUSE P-R Interval 194 ms GEMUSE QRS Duration 118 ms GEMUSE Q-T Interval 342 ms GEMUSE QTc 465 ms GEMUSE P Wave [place] 61 degrees GEMUSE R [place] -71 degrees GEMUSE T [place] 36 degrees GEMUSE ECG Interpretation Sinus tachycardia Right bundle branch block Left anterior fascicular block Bifascicular block Abnormal ECG No previous ECGs available Confirmed by Arnav GARCIA YUFENG ([id number]) on 09/12/2024 7:11:46 PM GEMUSE 09/12/2024 7:03 PM EDT 09/12/2024 7:11 PM EDT Paloma Perry MD ECG ORDERABLES Final Re sult GEMUSE from Last 3 Months Insurance [facility] [employer] Member Subscriber Plan / Payer (Ef fective 2024-Present) Name:Ki Nelsontor Relation to Subscriber:Self Name:Cade SpauldingmedBrandt gerard Payer ID:[id number] Group ID:Not on file Type:Not on file Address: [place] [address] [place] [address] Care Teams Thermograph Operator Relationship Specialty Start Date End Date [facility] [address] [place] [phone] PCP - General 01/05/24
[2024-12-07 21:26] LABS: Alanine Aminotransferase 25 U/L (0-40); Albumin Level 4.4 g/dL (3.5-5.0); Alkaline Phosphatase 79 U/L (39-117); Anion Gap 12 (12-20); Aspartate Amino Transferase 22 U/L (5-37); Blood Urea Nitrogen 39 mg/dL (9-16); Calcium 9.8 mg/dL (8.4-10.2); Carbon Dioxide 28 mmol/L (22-29); Chloride 100 mmol/L (96-108); Creatinine Clr Calc Pharmacy 46.4; Estimated Glomerular Filt Rate 36; Potassium 5.3 mmol/L (3.3-5.1); Sodium 135 mmol/L (135-145); Total Protein 9.1 g/dL (6.5-8.0)
[2024-12-07 21:47] LABS: Magnesium 2.0 mg/dL (1.6-2.6)
[2024-12-07] MEDS: diazePAM 10 MG/2 ML CARTRIDGE 5 MG IVPUSH (21:52)
[2024-12-07] MEDS: Lidocaine HCl 2 % Urojet 10 ML JEL.PF.APP TOPICAL (21:52)
[2024-12-07 22:25] LABS: Appearance Urine Turbid; Glucose Urine UA >=1000 mg/dL (Negative); PH 6.0 (5.0-9.0); Specific Gravity - Urine 1.025 (1.005-1.025); UMIC TRIGGER UACC YES
[2024-12-07 22:43] LABS: UACC Culture Trigger YES
[2024-12-07 23:45] LABS: Glucose, Whole Blood 366 mg/dL (60-115)
--- NOTE | 2024-12-07 23:58 | ED.MALEGU ---
HPI - Male Genitourinary General Chief complaint: Urogenital-Male Stated complaint: Pain, cant urine Time Seen by Provider: 12/07/24 21:22 Source: patient Limitations: language barrier History of Present Illness ED Provider: Makenna Anaya PA-C HPI Narrative: 64-year-old male with a history of urinary retention with chronic indwelling Anaya, chronic kidney disease, osteoarthritis, diabetes, hypertension, hyperlipidemia, obesity who presents with inability to void. Patient states he has not had urine output since earlier today. Associated abdominal discomfort. Denies fever. Related Data Home Medications ?Medication ?Instructions ?Recorded ?Confirmed aspirin 81 mg tablet,delayed 81 mg PO DAILY 03/29/20 10/05/24 release (Adult Aspirin Regimen) gabapentin 800 mg tablet 800 mg PO BID 03/29/20 10/05/24 metformin 1,000 mg tablet 1,000 mg PO BID 03/29/20 10/05/24 metoprolol succinate 200 mg 200 mg PO DAILY 03/29/20 10/05/24 tablet,extended release 24 hr alcohol swabs (Alcohol Prep Pads) pad topical DAILY 08/29/21 10/05/24 blood sugar diagnostic (FreeStyle #10 ea 08/29/21 10/05/24 Lite Strips) lancets 33 gauge (TRUEplus Lancets) #100 ea 08/29/21 10/05/24 latanoprost 0.005 % eye drops 1 drp ophthalmic (eye) BEDTIME 08/29/21 10/05/24 melatonin 5 mg tablet 10 mg PO BEDTIME PRN insomnia 08/29/21 10/05/24 pantoprazole 20 mg tablet,delayed 20 mg PO DAILY 08/29/21 10/05/24 release amlodipine 10 mg tablet 10 mg PO DAILY 02/25/24 10/05/24 dulaglutide 4.5 mg/0.5 mL mg subcut 02/25/24 10/05/24 subcutaneous pen injector (Trulicity) pravastatin 40 mg tablet 40 mg PO DAILY 02/25/24 10/05/24 empagliflozin 25 mg tablet 25 mg PO DAILY 06/15/24 10/05/24 (Jardiance) acetaminophen 500 mg tablet 500 mg PO Q6H PRN mild pain 10/05/24 10/05/24 Previous Rx's ?Medication ?Instructions ?Recorded diphenoxylate-atropine 2.5 1 tab PO DAILY PRN diarrhea #4 tabs 01/21/21 mg-0.025 mg tablet (Lomotil) docusate sodium 250 mg capsule 250 mg PO BID PRN constipation #10 09/01/24 caps bisacodyl 5 mg tablet,delayed 5 mg PO ONCE 1 day #3 tabs 09/16/24 release polyethylene glycol 3350 17 238 g PO ONCE laxative effect 1 09/16/24 gram/dose oral powder (Miralax) day #238 grams doxazosin 4 mg tablet 4 mg PO BEDTIME 30 days #30 tabs 10/28/24 finasteride 5 mg tablet 5 mg PO DAILY 90 days #90 tabs 10/28/24 ascorbic acid (vitamin C) 1,000 mg 1,000 mg PO DAILY 90 days #90 tabs 11/23/24 tablet methenamine hippurate 1 gram tablet 1 g PO DAILY 90 days #90 tabs 11/23/24 ciprofloxacin HCl 500 mg tablet 500 mg PO BID #20 tabs 12/08/24 Allergies Allergy/AdvReac Type Severity Reaction Status Date / Time No Known Allergies (No Known Allergy Verified 12/07/24 20:39 Allergies*) Review of Systems Review of Systems: Yes all other systems are reviewed and are negative Constitutional: Constitutional: Denies fatigue and Denies fever(s) Cardiovascular: Cardiovascular: Denies chest pain and Denies dyspnea Respiratory: Respiratory: Denies dyspnea Gastrointestinal: Gastrointestinal: Reports abdominal pain, Denies nausea and Denies vomiting Endocrine: Endocrine: Denies fatigue PMFSH Past Medical History Attestation statement: The following information was validated with the patient. Medical History Osteomyelitis DM2 (diabetes mellitus, type 2) Essential hypertension Right lumbar radiculopathy Arthritis of both knees Balanitis Type 2 diabetes mellitus with polyneuropathy Hyperlipidemia LDL goal <100 Obesity due to excess calories Type 2 diabetes mellitus with hyperglycemia, with long-term current use of insulin Surgical History H/O colonoscopy Hx of tonsillectomy Hx of appendectomy Family History Family History Father No problems noted. 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 [employer] Physical Exam Vital Signs: Vital Signs: Last Vital Signs Temp 97.6 F 12/07/24 20:37 Pulse 83 12/07/24 20:37 Resp 20 12/07/24 20:37 BP 169/97 H 12/07/24 20:37 Pulse Ox 100 12/07/24 20:37 O2 Del Method Room Air 12/07/24 20:37 BMI result Body Mass Index 32.1 Const: Other: Alert well-appearing Orientation/consciousness: patient oriented x3 Resp: Effort & Inspection: normal respiratory effort Cardio: Other: Normal peripheral perfusion Skin: Other: Warm dry no rash Neuro: General: patient oriented x3, gait normal, no focal motor deficits and CN's II-XI intact bilaterally Psych: Other: Cooperative Course Reevaluation(s) Reevaluation #1: Patient has a evidence of a UTI, I have reviewed last culture and sensitivity from prior urine culture, ciprofloxacin would be an appropriate choice, his creatinine clearance is 46.4, he can have 500 mg BID..... In the meantime he will get 1 dose of Levaquin here we do not have ciprofloxacin on the formulary. Medications Administered Discontinued Medications Generic Name Dose Route Start Last Admin Trade Name Brittany PRN Reason Stop Dose Admin Diazepam 5 mg 12/07/24 21:30 12/07/24 21:52 Diazepam 10 Mg/2 Ml Cartridge IVPUSH 12/07/24 21:31 5 mg STAT STA Administration Sodium Chloride 1,000 mls @ 999 mls/hr 12/07/24 21:30 12/07/24 22:46 Ns IV 12/07/24 22:30 Infused .Q1H1M FLY Infusion Acetaminophen 1,000 mg in 100 mls @ 400 mls/hr 12/07/24 21:30 12/07/24 22:37 Ofirmev IV 12/07/24 21:44 Infused ONCE ONE Infusion Levofloxacin 750 mg 12/07/24 23:28 12/07/24 23:39 Levofloxacin 750 Mg Tablet PO 12/07/24 23:29 750 mg ONCE ONE Administration Lidocaine HCl 10 ml 12/07/24 21:30 12/07/24 21:52 Lidocaine Hcl 2 % Urojet 10 Ml Jel.Pf.Ariana TOPICAL 12/07/24 21:31 10 ml ONCE ONE Administration Medical Decision Making Medical Decision Making MDM Narrative: 64-year-old male with a history of urinary retention with chronic indwelling Anaya, chronic kidney disease, osteoarthritis, diabetes, hypertension, hyperlipidemia, obesity who presents with inability to void. Patient states he has not had urine output since earlier today. Associated abdominal discomfort. Denies fever, nausea, vomiting or back pain. Problem: Urinary retention with a chronic indwelling Anaya History: Per patient I have considered the following differential diagnoses: Anaya dysfunction, UTI, pyelonephritis, renal colic Plan: Given that acute onset of urinary retention, the Anaya is likely obstructed. On the exterior, it appears there was a great deal of sediment. We will be screening basic labs and a urinalysis. We will exchange the Anaya. Given the patient IV fluid, and pain medicines. He is not complaining of flank or back pain to suggest pyelonephritis or renal colic, he also has no active GI symptoms such as nausea vomiting. I have independently reviewed the following tests: Labs: No leukocytosis, not anemic, potassium subtly elevated at 5.3, creatinine subtly bumped from his baseline by 0.01 point....... We will give IV fluid sugar 366, no gap to suggest DKA, urine infected... We will give [facility] Lab Data 12/07/24 21:00 12/07/24 21:00 Labs: Lab Results 12/07/24 12/07/24 12/07/24 Range/Units 21:00 22:14 23:41 WBC 8.3 (4.8-10.8) X10*3/uL RBC 5.18 (4.60-5.80) X10*6/uL Hgb 14.5 (14.0-18.0) g/dl Hct 42.3 (42.0-52.0) % MCV 81.7 (80.0-98.0) fL MCH 28.0 (27.0-33.0) pg MCHC 34.3 (31.0-36.0) g/dl RDW 12.8 (11.0-16.0) % Plt Count 240 (160-400) X10*3/uL MPV 9.4 (9.4-12.4) fL Immature Gran % (Auto) 0.8 H (0.0-0.4) % Neut % (Auto) 63.3 (45-73) % Lymph % (Auto) 20.1 (20-40) % [place] % (Auto) 13.1 H (2-11) % Eos % (Auto) 2.2 (0-4) % Baso % (Auto) 0.5 (0-2) % Lymph # (Auto) 1.7 (1.2-4.9) X10*3/uL [place] # (Auto) 1.1 (0.1-1.2) X10*3/uL Eos # (Auto) 0.2 (0.0-0.4) X10*3/uL Baso # (Auto) 0.0 (0.0-0.2) X10*3/uL Abs Immat Gran (auto) 0.07 H (0.00-0.03) X10*3/uL Absolute Neuts (auto) 5.3 (2.0-8.3) x10*3/uL Absolute Nucleated RBC 0.000 (0.0-0.012) X10*3/uL Nucleated RBC % (auto) 0.0 (0.0-0.2) /100WBC Sodium 135 (135-145) mmol/L Potassium 5.3 H (3.3-5.1) mmol/L Chloride 100 (96-108) mmol/L Carbon Dioxide 28 (22-29) mmol/L Anion Gap 12 (12-20) BUN 39 H (9-16) mg/dL Creatinine 1.87 H (0.5-1.4) mg/dL Estim Creat Clear Calc 46.4 Estimated GFR 36 POC Glucose 366 H* (60-115) mg/dL Random Glucose 366 H* (60-115) mg/dL Calcium 9.8 (8.4-10.2) mg/dL Magnesium 2.0 (1.6-2.6) mg/dL Total Bilirubin 0.3 (0.0-1.0) mg/dL Direct Bilirubin 0.1 (0.0-0.5) mg/dL AST 22 (5-37) U/L ALT 25 (0-40) U/L Alkaline Phosphatase 79 (39-117) U/L Total Protein 9.1 H (6.5-8.0) g/dL Albumin 4.4 (3.5-5.0) g/dL Urine Color Yellow Urine Appearance Turbid Urine pH 6.0 (5.0-9.0) Ur Specific [place] 1.025 (1.005-1.025) Urine Protein 100 (2+) H (Neg-Trace) mg/dL Urine Glucose (UA) >=1000 H (Negative) mg/dL Urine Ketones Negative (Negative) mg/dL Urine Blood Moderate (2+) H (Negative) Urine Nitrite Negative (Negative) Ur Leukocyte Esterase Large (3+) H (Negative) Urine RBC 11-20 H (0-2) /HPF Urine WBC >50 H (0-5) /HPF Ur Squamous Epith Cells 3-5 (0-2) /HPF Urine Bacteria 1+ (None Seen) Hyaline Casts 0-2 (0-2) /LPF Urine Yeast Present Discharge Plan Discharge Clinical Impression: Urinary tract infection Patient Disposition: Home, Self-Care Instructions: Catheter-associated Urinary Tract Infection (ED) Additional Instructions: You were found to have a urinary tract infection. The Anaya catheter was exchanged. See home care instructions. Take the ciprofloxacin as directed. Do not start the ciprofloxacin until noon time then take it twice a day, then take it as directed. Follow up with your primary care provider within a week. Prescriptions: New ciprofloxacin HCl 500 mg tablet 500 mg PO BID Qty: 20 0RF No Action diphenoxylate-atropine [Lomotil] 2.5-0.025 mg tablet 1 tab PO DAILY PRN (Reason: diarrhea) Qty: 4 0RF docusate sodium 250 mg capsule 250 mg PO BID PRN (Reason: constipation) Qty: 10 0RF metformin 1,000 mg tablet 1,000 mg PO BID gabapentin 800 mg tablet 800 mg PO BID metoprolol succinate 200 mg tablet extended release 24 hr 200 mg PO DAILY aspirin [Adult Aspirin Regimen] 81 mg tablet,delayed release (DR/EC) 81 mg PO DAILY melatonin 5 mg tablet 10 mg PO BEDTIME PRN (Reason: insomnia) pantoprazole 20 mg tablet,delayed release (DR/EC) 20 mg PO DAILY alcohol swabs [Alcohol Prep Pads] Pads, Medicated topical DAILY (DME) FreeStyle Lite Strips Strip See Rx Instructions Not Applicable DAILY Qty: 10 Rx Instructions: As directed latanoprost 0.005 % drops 1 drp ophthalmic (eye) BEDTIME (DME) lancets [TRUEplus Lancets] 33 gauge misc See Rx Instructions Not Applicable DAILY Qty: 100 Rx Instructions: As directed amlodipine 10 mg tablet 10 mg PO DAILY Trulicity 4.5 mg/0.5 mL pen injector subcut pravastatin 40 mg tablet 40 mg PO DAILY Jardiance 25 mg tablet 25 mg PO DAILY polyethylene glycol 3350 [Miralax] 17 gram/dose powder 238 g PO ONCE 1 Days Qty: 238 0RF Rx Instructions: Take as directed by mouth the day before your procedure. bisacodyl 5 mg tablet,delayed release (DR/EC) 5 mg PO ONCE 1 Days Qty: 3 0RF Rx Instructions: per colonoscopy instructions acetaminophen 500 mg tablet 500 mg PO Q6H PRN (Reason: mild pain) doxazosin 4 mg tablet 4 mg PO BEDTIME 30 Days Qty: 30 1RF finasteride 5 mg tablet 5 mg PO DAILY 90 Days Qty: 90 1RF ascorbic acid (vitamin C) 1,000 mg tablet 1,000 mg PO DAILY 90 Days Qty: 90 1RF methenamine hippurate 1 gram tablet 1 g PO DAILY 90 Days Qty: 90 1RF Print Language: Vietnamese
[2024-12-08 00:21] VITALS: BP 144/73; PULSE 89; RESP 20; TEMP 36.8; O2SAT 98
== END 2024-12-08 00:22 | disposition home or self-care (01) ==
PROVIDERS: Physician Assistant Medical; Emergency Provider Emergency Medicine Emergency Medical Services
DX: N39.0 Urinary tract infection, site not specified (principal); R33.9 Retention of urine, unspecified; E11.9 Type 2 diabetes mellitus without complications; I10 Essential (primary) hypertension; Z79.899 Other long term (current) drug therapy; Z87.891 Personal history of nicotine dependence
CPT/HCPCS: 36415; 51702; 51798; 80048; 80076; 81001; 82947; 83735; 85025; 87086; 87088; 87147; 96365; 96375; 99284; 99285; J0131; J3360

== ENCOUNTER 2024-12-08 07:14 | Emergency (ER) | payer OTHER, SELFPAY ==
[2024-12-08 07:22] VITALS: BP 152/78; PULSE 79; RESP 16; TEMP 36; O2SAT 99; BMI 31.8
--- NOTE | 2024-12-08 08:02 | PC.NURSE ---
Bladder scan > 1,000. Pt has bo cath with leg bag placed, states it was placed prior to discharge from previous visit. Bo cath adjusted by taking 20 mL from balloon and instantly draining cloudy yellow urine. Leg bag changed to regular bag and clamped at 500 mL.
--- NOTE | 2024-12-08 08:32 | ED_ITS ---
HPI - Male Genitourinary General Chief complaint: Urogenital-Male Stated complaint: unable to urinate Time Seen by Provider: 12/08/24 08:25 Source: patient Limitations: no limitations History of Present Illness ED Provider: DR. Barney HPI Narrative: 64-year-old male with history of urinary retention with chronic indwelling Anaya catheter, CKD, OA, DM, HTN, HLD, presented with urinary retention, patient was seen yesterday for urinary retention new Anaya catheter was placed yesterday in the ER patient returned today because the catheter was not draining urine and he still feel abdominal discomfort and suprapubic distention, no fever, no chills, patient yesterday was diagnosed with UTI patient was prescribed Cipro 500 mg b.i.d. that the patient was not able to leaf size picker or start today. Related Data Home Medications ?Medication ?Instructions ?Recorded ?Confirmed aspirin 81 mg tablet,delayed 81 mg PO DAILY 03/29/20 0 10/05/24 release (Adult Aspirin Regimen) gabapentin 800 mg tablet 800 mg PO BID 03/29/2010/05 metformin 1,000 mg tablet 1,000 mg PO BID 03/29/2012/23 metoprolol succinate 200 mg 200 mg PO DAILY 03/29/20 0 10/05/24 tablet,extended release 24 hr alcohol swabs (Alcohol Prep Pads) pad topical DAILY 10/05/24 blood sugar diagnostic (FreeStyle #10 ea 08/29/2112/23 Lite Strips) lancets 33 gauge (TRUEplus Lancets) #100 ea 08/29/21 0 10/05/24 latanoprost 0.005 % eye drops 1 drp ophthalmic (eye) B EDTIME 08/29/21 10/05/24 melatonin 5 mg tablet 10 mg PO BEDTIME PRN insomni a 08/29/21 10/05/24 pantoprazole 20 mg tablet,delayed 20 mg PO DAILY 08/2910/05/24 release amlodipine 10 mg tablet 10 mg PO DAILY 02/25/2412/23 dulaglutide 4.5 mg/0.5 mL mg subcut 02/25/24 10/05/24 [facility] pravastatin 40 mg tablet 40 mg PO DAILY 02/25/2412/23 empagliflozin 25 mg tablet 25 mg PO DAILY 06/15/2412/23 (Jardiance) acetaminophen 500 mg tablet 500 mg PO Q6H PRN mild dyllan n 10/05/24 10/05/24 Previous Rx's ?Medication ?Instructions ?Recorded diphenoxylate-atropine 2.5 1 tab PO DAILY PRN diarrhea #4 tabs 01/21/21 mg-0.025 mg tablet (Lomotil) docusate sodium 250 mg capsule 250 mg PO BID PRN const ipation #10 09/01/24 caps bisacodyl 5 mg tablet,delayed 5 mg PO ONCE 1 day #3 ta bs 09/16/24 release polyethylene glycol 3350 17 238 g PO ONCE laxative eff ect 1 09/16/24 gram/dose oral powder (Miralax) day #238 grams doxazosin 4 mg tablet 4 mg PO BEDTIME 30 days #30 tabs 10/28/24 finasteride 5 mg tablet 5 mg PO DAILY 90 days #90 ta bs 10/28/24 ascorbic acid (vitamin C) 1,000 mg 1,000 mg PO DAILY 9 0 days #90 tabs 11/23/24 tablet methenamine hippurate 1 gram tablet 1 g PO DAILY 90 da ys #90 tabs 11/23/24 ciprofloxacin HCl 500 mg tablet 500 mg PO BID #20 tabs 12/08/24 Allergies Allergy/AdvReac Type Severity Reaction Status Date / Time No Known Allergies (No Known Allergy Verified 12/08/24 07:25 Allergies*) Review of Systems 2 Review of Systems: All other systems are reviewed and are negative Constitutional: Reports as per HPI and Reports no additional constitutional complaints Eyes: Reports as per HPI and Reports no additional eye complaints Reports system reviewed and no additional complaints, except as documented Cardiovascular: Reports as per HPI and Reports no additional cardiovascular complaints Respiratory: Reports as per HPI and Reports no additional respiratory complaints Gastrointestinal: Reports as per HPI and Reports no additional gastrointestinal complaints Genitourinary: Reports no additional female genitourinary complaints Musculoskeletal: Reports no additional musculoskeletal complaints Skin/Breast: Reports system reviewed and no additional complaints, except as docu Psychiatric: Reports no additional psychiatric complaints Endocrine: Reports no additional endocrine complaints Hematologic/Lymphatic: Reports no additional hematologic/lymphatic complaints Allergic/Immunologic: Reports no additional allergic/immunologic complaints Reports system reviewed and no additional complaints, except as documented and Reports Abnormal speech present [facility] Past Medical History Medical History Osteomyelitis DM2 (diabetes mellitus, type 2) Essential hypertension Right lumbar radiculopathy Arthritis of both knees Balanitis Type 2 diabetes mellitus with polyneuropathy Hyperlipidemia LDL goal <100 Obesity due to excess calories Type 2 diabetes mellitus with hyperglycemia, with long-term current use of insulin Surgical History H/O colonoscopy Hx of tonsillectomy Hx of appendectomy Family History Family History Father No problems noted. 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 Blood pressure elevated. Heart rate normal. Respiratory rate normal. Temperature normal. Oxygen saturation normal. Appearance: Alert. Oriented X3. No acute distress. Head: Normal external exam. Normocephalic. Atraumatic. No Grewal signs noted. No raccoon eyes noted Eyes: PERRLA. EOMI. Conjunctiva and sclera normal. Eyelids normal. ENT: TM's Normal. Pharynx normal. Uvula midline. Moist mucous membranes. No trismus noted. No drooling noted. No muffled voice noted. Neck: Normal inspection. Neck supple. FROM. No adenopathy. Thyroid Normal. No meningeal signs. No neck mass noted. CVS: Normal heart rate and rhythm. Heart sound normal. No murmurs noted. Pulses normal throughout. Respiratory: No respiratory distress. Painless inspiration. Breath sounds normal. No wheezes/rales/rhonchi noted. Chest nontender. No accessory muscle usage noted or decreased air movement noted. Abdomen: Soft and nontender. Bowel sounds normal in all 4 quadrants. No distention noted. No organomegaly noted. No visible injury noted. Back: No CVA tenderness. Full range of motion noted. Skin: Skin warm and dry. Normal skin color. Normal skin turgor. No rashes/lesions/lacerations noted. Extremities: No lower extremity edema. Extremities exhibit normal range of motion. Extremities nontender. Neuro: Oriented X 3. Cranial nerve exam: II-XII are grossly intact No motor deficit. No sensory deficit. Reflexes normal. Course Reevaluation(s) Reevaluation #1: 64-year-old male returned for urinary retention and malfunctioning Anaya catheter, patient was diagnosed yesterday with UTI was started on Cipro that the patient could not fill the prescription. Urine is apparently infected agree with the Cipro antibiotic. Cipro is not carried in our hospital will give him 1 dose of Levaquin. No sepsis criteria with this patient. Hyperkalemia will responded to Lokelma and 5 units of IV insulin. Follow-up with urologist. Time: 12:59 Medications Administered Discontinued Medications Generic Name Dose Route Start Last Admin Trade Name Freq PRN Reason Stop Dose Admin Insulin Human Regular 3 unit 12/08/24 09:41 12/08/24 10:24 Insulin Regular, Human 100 Unit/Ml 10 Ml Vial IVPUSH 12/08/24 09:42 3 unit ONCE ONE Administration Levofloxacin 750 mg 12/08/24 08:35 12/08/24 09:17 Levofloxacin 750 Mg Tablet PO 12/08/24 08:36 750 mg ONCE ONE Administration Sodium Zirconium Cyclosilicate 10 gm 12/08/24 09:39 12/08/24 10:25 Sodium Zirconium Cyclosilicate 10 Gm Powd.Pack PO 12/08/24 09:40 10 gm ONCE ONE Administration Medical Decision Making Differential Diagnosis Differential Diagnoses: The differential diagnosis associated with the presentation includes (Urinary retention, chronic UTI.) Admission/Observation Consideration of admission/observation: Escalation of care including admission/observation considered Lab Data MDM Lab Attestation statement: I reviewed the patient's lab results. 12/08/24 09:16 12/08/24 12:33 Labs: Lab Results 12/08/24 12/08/24 12/08/24 Range/Units 09:16 09:27 11:04 WBC 10.6 (4.8-10.8) X10*3/uL RBC 4.93 (4.60-5.80) X10*6/uL Hgb 14.1 (14.0-18.0) g/dl Hct 40.6 L (42.0-52.0) % MCV 82.4 (80.0-98.0) fL MCH 28.6 (27.0-33.0) pg MCHC 34.7 (31.0-36.0) g/dl RDW 12.8 (11.0-16.0) % Plt Count 192 (160-400) X10*3/uL MPV 9.7 (9.4-12.4) fL Immature Gran % (Auto) 0.7 H (0.0-0.4) % Neut % (Auto) 75.0 H (45-73) % Lymph % (Auto) 10.3 L (20-40) % [place] % (Auto) 12.8 H (2-11) % Eos % (Auto) 0.8 (0-4) % Baso % (Auto) 0.4 (0-2) % Lymph # (Auto) 1.1 L (1.2-4.9) X10*3/uL [place] # (Auto) 1.4 H (0.1-1.2) X10*3/uL Eos # (Auto) 0.1 (0.0-0.4) X10*3/uL Baso # (Auto) 0.0 (0.0-0.2) X10*3/uL Abs Immat Gran (auto) 0.07 H (0.00-0.03) X10*3/uL Absolute Neuts (auto) 7.9 (2.0-8.3) x10*3/uL Absolute Nucleated RBC 0.000 (0.0-0.012) X10*3/uL Nucleated RBC % (auto) 0.0 (0.0-0.2) /100WBC Sodium 136 (135-145) mmol/L Potassium 5.7 H (3.3-5.1) mmol/L Chloride 101 (96-108) mmol/L Carbon Dioxide 26 (22-29) mmol/L Anion Gap 15 (12-20) BUN 34 H (9-16) mg/dL Creatinine 1.84 H (0.5-1.4) mg/dL Estim Creat Clear Calc 46.9 Estimated GFR 37 POC Glucose 209 H (60-115) mg/dL Random Glucose 265 H (60-115) mg/dL Calcium 9.5 (8.4-10.2) mg/dL Urine Color Yellow Urine Appearance Turbid Urine pH 6.0 (5.0-9.0) Ur Specific [place] 1.020 (1.005-1.025) Urine Protein 100 (2+) H (Neg-Trace) mg/dL Urine Glucose (UA) 500 H (Negative) mg/dL Urine Ketones Negative (Negative) mg/dL Urine Blood Large (3+) H (Negative) Urine Nitrite Negative (Negative) Ur Leukocyte Esterase Moderate (2+) H (Negative) Urine RBC >20 H (0-2) /HPF Urine WBC >50 H (0-5) /HPF Ur Squamous Epith Cells >20 (0-2) /HPF Urine Bacteria 3+ (None Seen) Hyaline Casts 0-2 (0-2) /LPF Urine Yeast Present 12/08/24 12/08/24 Range/Units 11:35 12:33 WBC (4.8-10.8) X10*3/uL RBC (4.60-5.80) X10*6/uL Hgb (14.0-18.0) g/dl Hct (42.0-52.0) % MCV (80.0-98.0) fL MCH (27.0-33.0) pg MCHC (31.0-36.0) g/dl RDW (11.0-16.0) % Plt Count (160-400) X10*3/uL MPV (9.4-12.4) fL Immature Gran % (Auto) (0.0-0.4) % Neut % (Auto) (45-73) % Lymph % (Auto) (20-40) % [place] % (Auto) (2-11) % Eos % (Auto) (0-4) % Baso % (Auto) (0-2) % Lymph # (Auto) (1.2-4.9) X10*3/uL [place] # (Auto) (0.1-1.2) X10*3/uL Eos # (Auto) (0.0-0.4) X10*3/uL Baso # (Auto) (0.0-0.2) X10*3/uL Abs Immat Gran (auto) (0.00-0.03) X10*3/uL Absolute Neuts (auto) (2.0-8.3) x10*3/uL Absolute Nucleated RBC (0.0-0.012) X10*3/uL Nucleated RBC % (auto) (0.0-0.2) /100WBC Sodium 134 L (135-145) mmol/L Potassium 4.9 (3.3-5.1) mmol/L Chloride 99 (96-108) mmol/L Carbon Dioxide 27 (22-29) mmol/L Anion Gap 13 (12-20) BUN 31 H (9-16) mg/dL Creatinine 1.70 H (0.5-1.4) mg/dL Estim Creat Clear Calc 50.7 Estimated GFR 41 POC Glucose 198 H (60-115) mg/dL Random Glucose 248 H (60-115) mg/dL Calcium 9.0 (8.4-10.2) mg/dL Urine Color Urine Appearance Urine pH (5.0-9.0) Ur Specific [place] (1.005-1.025) Urine Protein (Neg-Trace) mg/dL Urine Glucose (UA) (Negative) mg/dL Urine Ketones (Negative) mg/dL Urine Blood (Negative) Urine Nitrite (Negative) Ur Leukocyte Esterase (Negative) Urine RBC (0-2) /HPF Urine WBC (0-5) /HPF Ur Squamous Epith Cells (0-2) /HPF Urine Bacteria (None Seen) Hyaline Casts (0-2) /LPF Urine Yeast Discharge Plan Discharge Clinical Impression: Acute urinary retention, Acute hyperkalemia, CKD (chronic kidney disease) Patient Disposition: Home, Self-Care Instructions: Urinary Tract Infection in Men (ED), Anaya Catheter Placement and Care (ED) Prescriptions: No Action diphenoxylate-atropine [Lomotil] 2.5-0.025 mg tablet 1 tab PO DAILY PRN (Reason: diarrhea) Qty: 4 0RF docusate sodium 250 mg capsule 250 mg PO BID PRN (Reason: constipation) Qty: 10 0RF ciprofloxacin HCl 500 mg tablet 500 mg PO BID Qty: 20 0RF metformin 1,000 mg tablet 1,000 mg PO BID gabapentin 800 mg tablet 800 mg PO BID metoprolol succinate 200 mg tablet extended release 24 hr 200 mg PO DAILY aspirin [Adult Aspirin Regimen] 81 mg tablet,delayed release (DR/EC) 81 mg PO DAILY melatonin 5 mg tablet 10 mg PO BEDTIME PRN (Reason: insomnia) pantoprazole 20 mg tablet,delayed release (DR/EC) 20 mg PO DAILY alcohol swabs [Alcohol Prep Pads] Pads, Medicated topical DAILY (DME) FreeStyle Lite Strips Strip See Rx Instructions Not Applicable DAILY Qty: 10 Rx Instructions: As directed latanoprost 0.005 % drops 1 drp ophthalmic (eye) BEDTIME (DME) lancets [TRUEplus Lancets] 33 gauge misc See Rx Instructions Not Applicable DAILY Qty: 100 Rx Instructions: As directed amlodipine 10 mg tablet 10 mg PO DAILY Trulicity 4.5 mg/0.5 mL pen injector subcut pravastatin 40 mg tablet 40 mg PO DAILY Jardiance 25 mg tablet 25 mg PO DAILY polyethylene glycol 3350 [Miralax] 17 gram/dose powder 238 g PO ONCE 1 Days Qty: 238 0RF Rx Instructions: Take as directed by mouth the day before your procedure. bisacodyl 5 mg tablet,delayed release (DR/EC) 5 mg PO ONCE 1 Days Qty: 3 0RF Rx Instructions: per colonoscopy instructions acetaminophen 500 mg tablet 500 mg PO Q6H PRN (Reason: mild pain) doxazosin 4 mg tablet 4 mg PO BEDTIME 30 Days Qty: 30 1RF finasteride 5 mg tablet 5 mg PO DAILY 90 Days Qty: 90 1RF ascorbic acid (vitamin C) 1,000 mg tablet 1,000 mg PO DAILY 90 Days Qty: 90 1RF methenamine hippurate 1 gram tablet 1 g PO DAILY 90 Days Qty: 90 1RF Referrals: Moy Jarrell MD [Physician, Urology] Print Language: Fijian
--- OUTSIDE RECORDS SUMMARY | 2024-12-08 09:09 | XMS_ITS | Encounter Summary ---
Author Organization [employer] Address [address] [place] [address] Care Team Providers Care Knit Goods Washer Name Role Phone [place], [facility] Primary Care Provider [phone] Reason for Visit * Reason Comments Med Refill Encounter Details Date Type Department Care Team ([facility] st Contact Info) Description 08/31/2024 Refill [facility] MED[facility]INE [address] [place] [address] [facility] [address] [place] [address] Primary hypertension Social History Tobacco Use Types [...] Description 12/12/2024 1:30 PM EDT Medication Management [facility] MEDICINE [address] [place] [id number] Elena Nichols, PharmD [address] [place] [address] 01/11/2025 2:00 PM EDT Office Visit [facility] MEDICINE [address] [place] [id number] Tg Milner FNP [address] [place] [address] documented as of this encounter Visit Diagnoses Diagnosis Primary hypertension Unspecified essential hypertension documented in this encounter Additional Health Concerns Assessment Noted Time PHQ-9 Depression Total Score: 0 07/22/19 25 10:03 AM EST documented as of this encounter Care Teams Knit Goods Washer Relationship Specialty Start Date End Date Tg Milner FNP [address] [place] [address] PCP - General Family Medicine 04/28/22 documented as of this encounter
--- OUTSIDE RECORDS SUMMARY | 2024-12-08 09:09 | XMS_ITS | Clinical Summary ---
Author Organization [address] [facility] Address [address] [place] [address] Phone Care Team Providers Care Market Development Trainer Name Role Phone [facility] Primary Care Provider Allergies No known active [...] EDT - 09/13/2024 6:03 AM EDT Emergency [facility] Emergency [address] [place] [address] Paloma Perry MD Hemorrhagic cystitis [...] and culture (09/13/2024 2:32 AM EDT) Pathologist [facility] Specific [place] Urine 1.020 1.003 - 1.030 LAB URINALYSIS - AUTOMATED METHOD 09/13/2024 3:25 AM [facility] pH, Urine 8.0 5.0 - 8.0 pH LAB URINALYSIS - AUTOMATED METHOD 09/13/2024 3:25 AM [facility] Leukocytes, Urine Moderate(A) Negative LAB URINALYSIS - AUTOMATED METHOD 09/13/2024 3:25 AM [facility] Nitrite, Urine Positive(A) Negative LAB URINALYSIS - AUTOMATED METHOD 09/13/2024 3:25 AM [facility] Protein, Urine >=300(A) <=Trace mg/dL LAB URINALYSIS - AUTOMATED METHOD 09/13/2024 3:25 AM [facility] Glucose, Urine >=1000(A) Negative mg/dL LAB URINALYSIS - AUTOMATED METHOD 09/13/2024 3:25 AM [facility] Ketones, Urine Negative Negative mg/dL LAB URINALYSIS - AUTOMATED METHOD 09/13/2024 3:25 AM [facility] Urobilinogen , Urine 0.2 0.2 - 1.0 mg/dL LAB URINALYSIS - AUTOMATED METHOD 09/13/2024 3:25 AM [facility] Bilirubin, Urine Small(A) Negative LAB URINALYSIS - AUTOMATED METHOD 09/13/2024 3:25 AM [facility] Blood, Urine Large(A) Negative LAB URINALYSIS - AUTOMATED METHOD 09/13/2024 3:25 AM [facility] RBC, Urine 100(H) 0 - 4 /HPF 09/13/2024 3:25 AM EDT [facility] WBC, Urine 100(H) 0 - 4 /HPF 09/13/2024 3:25 AM EDT [facility] Squamous Epithelial, Urine 4 0 - 60 /LPF 09/13/2024 3:25 AM EDT [facility] Bacteria, Urine Moderate(A) Negative /HPF 09/13/2024 3:25 AM EDT [facility] Hyaline Casts, Urine 4(H) 0 - 3 /LPF 09/13/2024 3:25 AM EDT [facility] Urine Indwelling urinary catheter / Unknown Non-blood Collection / Unknown 09/13/2024 2:32 AM EDT 09/13/2024 3:03 AM EDT Paloma Perry MD LAB URINE ORDERABLES Fin al Result [facility] [address] [place] [address], [place] [phone] * [place] urine culture tube (09/13/2024 2:32 AM EDT) Extra Tube Hold for add-ons. 09/13/2024 5:01 AM EDT [facility] Comment:Auto resulted. Urine Indwelling urinary catheter / Unknown Non-blood Collection / Unknown 09/13/2024 2:32 AM EDT 09/13/2024 3:03 AM EDT Paloma Perry MD LAB URINE ORDERABLES Fin al Result Performing Organization Address City/[facility]/ZIP Co de Phone Number [facility] [address] [place] [address], [place] [phone] * (ABNORMAL) Culture urine (09/13/2024 2:32 AM EDT) Culture, Urine >100,000 CFU/mL Proteus mirabilis(A) JEZ 09/16/2024 8:51 AM EDT [facility] Comment: Edited result: Previously reported as Proteus species on 09/14/2024 at 1010 EDT. Culture, Urine 10,000-49,000 CFU/mL Klebsiella pneumoniae ssp pneumoniae(A) JEZ 09/16/2024 8:51 AM EDT [facility] Comment: The organism value for [...] us Paloma Perry MD LAB MICROBIOLOGY - [facility] AL ORDERABLES Final Result [facility] [address] [place] [address], * Respiratory virus panel molecular study (09/13/2024 1:36 AM EDT) Pathologist [facility] Adenovirus Detection by PCR Not Detected Not Detected LAB MICROBIOLOGY METHOD 09/13/2024 2:48 AM EDT [facility] Influenza A PCR Not Detected Not Detected LAB MICROBIOLOGY METHOD 09/13/2024 2:48 AM EDT [facility] Influenza B PCR Not Detected Not Detected LAB MICROBIOLOGY METHOD 09/13/2024 2:48 AM EDT [facility] Coronavirus 229E Not Detected Not Detected LAB MICROBIOLOGY METHOD 09/13/2024 2:48 AM EDT [facility] Coronavirus HKU1 Not Detected Not Detected LAB MICROBIOLOGY METHOD 09/13/2024 2:48 AM EDT [facility] Coronavirus OC43 Not Detected Not Detected LAB MICROBIOLOGY METHOD 09/13/2024 2:48 AM EDT [facility] Coronavirus NL63 Not Detected Not Detected LAB MICROBIOLOGY METHOD 09/13/2024 2:48 AM EDT [facility] Parainfluenza Virus 1 Not Detected Not Detected LAB MICROBIOLOGY METHOD 09/13/2024 2:48 AM EDT [facility] Parainfluenza Virus 2 Not Detected Not Detected LAB MICROBIOLOGY METHOD 09/13/2024 2:48 AM EDT [facility] Parainfluenza Virus 3 Not Detected Not Detected LAB MICROBIOLOGY METHOD 09/13/2024 2:48 AM EDT [facility] Parainfluenza Virus 4 Not Detected Not Detected LAB MICROBIOLOGY METHOD 09/13/2024 2:48 AM EDT [facility] RSV PCR Not Detected Not Detected LAB MICROBIOLOGY METHOD 09/13/2024 2:48 AM EDT [facility] Human Metapneumovirus A and B Not Detected Not Detected LAB MICROBIOLOGY METHOD 09/13/2024 2:48 AM EDT [facility] Rhinovirus/Entero virus Not Detected Not Detected LAB MICROBIOLOGY METHOD 09/13/2024 2:48 AM EDT [facility] Bordetella pertussis Not Detected Not Detected LAB MICROBIOLOGY METHOD 09/13/2024 2:48 AM EDT [facility] Bordetella parapertussis Not Detected Not Detected LAB MICROBIOLOGY METHOD 09/13/2024 2:48 AM EDT [facility] Mycoplasma pneumo by PCR Not Detected Not Detected LAB MICROBIOLOGY METHOD 09/13/2024 2:48 AM EDT [facility] Chlamydia pneumoniae Not Detected Not Detected LAB MICROBIOLOGY METHOD 09/13/2024 2:48 AM EDT [facility] SARS COV-2 Not Detected Not Detected LAB MICROBIOLOGY METHOD 09/13/2024 2:48 AM EDT [facility] Swab Both anterior nares / Unknown Non-blood Collection / Unknown 09/13/2024 1:36 AM EDT 09/13/2024 1:50 AM EDT Narrative [facility] - 09/13/2024 2:48 AM EDT Testing was performed using the [employer] Respiratory Pathogen PCR Assay. All results must [...] MICROBIOLOGY - GENER AL ORDERABLES Final Result [facility] [address] [place] [address], * ECG-Annotated (09/13/2024) us Provider Onbase ECG ORDERABLES Final Result * (ABNORMAL) CBC auto differential (09/12/2024 7:05 PM EDT) WBC 6.0 4.8 - 10.8 K/mcL LAB HEMETOLOGY METHOD 09/12/2024 7:44 PM EDT [facility] RBC 4.70 4.50 - 5.50 M/mcL LAB HEMETOLOGY METHOD 09/12/2024 7:44 PM EDT [facility] Hemoglobin 13.1(L) 13.5 - 17.5 g/dL LAB HEMETOLOGY METHOD 09/12/2024 7:44 PM EDT [facility] Hematocrit 39.6(L) 42.0 - 54.0 % LAB HEMETOLOGY METHOD 09/12/2024 7:44 PM EDT [facility] MCV 85.0 79.0 - 98.0 FL LAB HEMETOLOGY METHOD 09/12/2024 7:44 PM EDT [facility] MCH 28.1 27.0 - 32.0 pcg LAB HEMETOLOGY METHOD 09/12/2024 7:44 PM [facility] MCHC 33.1 32.0 - 37.0 g/dL LAB HEMETOLOGY METHOD 09/12/2024 7:44 PM [facility] RDW 13.9 11.0 - 15.0 % LAB HEMETOLOGY METHOD 09/12/2024 7:44 PM [facility] Platelets 237 130 - 400 K/mcL LAB HEMETOLOGY METHOD 09/12/2024 7:44 PM [facility] MPV 10.2 7.0 - 11.0 FL LAB HEMETOLOGY METHOD 09/12/2024 7:44 PM [facility] NRBC 0.0 <1.0 % LAB HEMETOLOGY METHOD 09/12/2024 7:44 PM [facility] NRBC Absolute 0.00 <0.10 K/mcL LAB HEMETOLOGY METHOD 09/12/2024 7:44 PM [facility] Neutrophils Relative 52.6 % LAB HEMETOLOGY METHOD 09/12/2024 7:44 PM [facility] Lymphocytes Relative 26.1 % LAB HEMETOLOGY METHOD 09/12/2024 7:44 PM [facility] Monocytes Relative 14.9 % LAB HEMETOLOGY METHOD 09/12/2024 7:44 PM [facility] Eosinophils Relative 4.4 % LAB HEMETOLOGY METHOD 09/12/2024 7:44 PM [facility] Basophils Relative 1.2 % LAB HEMETOLOGY METHOD 09/12/2024 7:44 PM [facility] Immature Granulocytes Relative 0.8 % LAB HEMETOLOGY METHOD 09/12/2024 7:44 PM EDT [facility] Neutrophils Absolute 3.14 1.50 - 7.00 K/mcL LAB HEMETOLOGY METHOD 09/12/2024 7:44 PM EDT [facility] Lymphocytes Absolute 1.56 1.00 - 5.00 K/mcL LAB HEMETOLOGY METHOD 09/12/2024 7:44 PM EDT [facility] Monocytes Absolute 0.89 0.20 - 1.00 K/mcL LAB HEMETOLOGY METHOD 09/12/2024 7:44 PM EDT [facility] Eosinophils Absolute 0.26 0.00 - 0.50 K/mcL LAB HEMETOLOGY METHOD 09/12/2024 7:44 PM EDT [facility] Basophils Absolute 0.07 0.00 - 0.20 K/mcL LAB HEMETOLOGY METHOD 09/12/2024 7:44 PM EDT [facility] Immature Granulocytes Absolute 0.05(H) 0.00 - 0.03 K/mcL LAB HEMETOLOGY METHOD 09/12/2024 7:44 PM EDT [facility] Blood Venous blood specimen / Unknown Venipuncture / Unknown 09/12/2024 7:05 PM EDT 09/12/2024 7:34 PM EDT us Paloma Perry MD LAB BLOOD ORDERABLES Fin al Result [facility] [address] [place] [address], * Magnesium (09/12/2024 7:05 PM EDT) Magnesium 1.9 1.9 - 2.6 mg/dL LAB CHEMISTRY METHOD 09/12/2024 8:05 PM EDT [facility] Blood Venous blood specimen / Unknown Venipuncture / Unknown 09/12/2024 7:05 PM EDT 09/12/2024 7:34 PM EDT Paloma Perry MD LAB BLOOD ORDERABLES Fin al Result [facility] [address] [place] [address], [place] [phone] * (ABNORMAL) Basic metabolic panel (09/12/2024 7:05 PM EDT) Sodium 132(L) 133 - 145 mmol/L LAB CHEMISTRY METHOD 09/12/2024 8:05 PM [facility] Potassium 4.3 3.5 - 5.5 mmol/L LAB CHEMISTRY METHOD 09/12/2024 8:05 PM [facility] Chloride 100 96 - 110 mmol/L LAB CHEMISTRY METHOD 09/12/2024 8:05 PM [facility] CO2 25 21 - 32 mmol/L LAB CHEMISTRY METHOD 09/12/2024 8:05 PM [facility] Anion Gap 7 3 - 11 LAB CHEMISTRY METHOD 09/12/2024 8:05 PM [facility] Glucose 216(H) 70 - 100 mg/dL LAB CHEMISTRY METHOD 09/12/2024 8:05 PM [facility] BUN 31(H) 5 - 25 mg/dL LAB CHEMISTRY METHOD 09/12/2024 8:05 PM [facility] Creatinine 1.87(H) 0.70 - 1.30 mg/dL LAB CHEMISTRY METHOD 09/12/2024 8:05 PM [facility] eGFR 39(L) >=60 mL/min/1. 73m2 LAB CHEMISTRY METHOD 09/12/2024 8:05 PM [facility] Comment:Calculation based on the Chronic Kidney Disease Epidemiology Collaboration (CKD-EPI) equation refit without adjustment for race. BUN/Creatinine Ratio 16.6 LAB CHEMISTRY METHOD 09/12/2024 8:05 PM EDT [facility] Calcium 9.7 8.5 - 10.5 mg/dL LAB CHEMISTRY METHOD 09/12/2024 8:05 PM EDT [facility] Blood Venous blood specimen / Unknown Venipuncture / Unknown 09/12/2024 7:05 PM EDT 09/12/2024 7:34 PM EDT Paloma Perry MD LAB BLOOD ORDERABLES Fin al Result [facility] [address] [place] [address], * ECG 12 lead (09/12/2024 7:03 PM EDT) Ventricular Rate ECG 111 BPM GEMUSE Atrial Rate 111 BPM GEMUSE P-R Interval 194 ms GEMUSE QRS Duration 118 ms GEMUSE Q-T Interval 342 ms GEMUSE QTc 465 ms GEMUSE P Wave [place] 61 degrees GEMUSE R [place] -71 degrees GEMUSE T [place] 36 degrees GEMUSE ECG Interpretation Sinus tachycardia Right bundle branch block Left anterior fascicular block Bifascicular block Abnormal ECG No previous ECGs available Confirmed by Arnav GARCIA YUFENG ([id number]) on 09/12/2024 7:11:46 PM GEMUSE 09/12/2024 7:03 PM EDT 09/12/2024 7:11 PM EDT Paloma Perry MD ECG ORDERABLES Final Re sult GEMUSE from Last 3 Months Insurance [facility] [employer] Member Subscriber Plan / Payer (Ef fective 2024-Present) Name:Ki Nelsontor Relation to Subscriber:Self Name:Cade SpauldingmedBrandt gerard Payer ID:[id number] Group ID:Not on file Type:Not on file Address: [place] [address] [place] [address] Care Teams Market Development Trainer Relationship Specialty Start Date End Date [facility] [address] [place] [phone] PCP - General 01/05/24
[2024-12-08 09:19] LABS: MANUAL DIFF FLAG NO
[2024-12-08 09:23] LABS: Hematocrit 40.6 % (42.0-52.0); Hemoglobin 14.1 g/dl (14.0-18.0); Imm Gran Abs Auto 0.07 X10*3/uL (0.00-0.03); Imm Gran Pct Auto 0.7 % (0.0-0.4); Lymphocytes Absolute Auto 1.1 X10*3/uL (1.2-4.9); Mean Corpuscular HGB Conc 34.7 g/dl (31.0-36.0); Mean Corpuscular Hemoglobin 28.6 pg (27.0-33.0); Mean Corpuscular Volume 82.4 fL (80.0-98.0); NRBC Abs Auto 0.000 X10*3/uL (0.0-0.012); NRBC Pct Auto 0.0 /100WBC (0.0-0.2); Platelet Count 192 X10*3/uL (160-400); Red Blood Count 4.93 X10*6/uL (4.60-5.80); White Blood Count 10.6 X10*3/uL (4.8-10.8)
[2024-12-08 09:35] LABS: Anion Gap 15 (12-20); Blood Urea Nitrogen 34 mg/dL (9-16); Calcium 9.5 mg/dL (8.4-10.2); Carbon Dioxide 26 mmol/L (22-29); Chloride 101 mmol/L (96-108); Creatinine Clr Calc Pharmacy 46.9; Estimated Glomerular Filt Rate 37; Potassium 5.7 mmol/L (3.3-5.1); Sodium 136 mmol/L (135-145)
[2024-12-08 09:42] LABS: Appearance Urine Turbid; Glucose Urine UA 500 mg/dL (Negative); PH 6.0 (5.0-9.0); Specific Gravity - Urine 1.020 (1.005-1.025); UMIC TRIGGER UACC YES
[2024-12-08 09:54] VITALS: BP 146/72; PULSE 76; RESP 16; TEMP 36.6; O2SAT 99
[2024-12-08 10:00] LABS: UACC Culture Trigger YES
[2024-12-08 11:11] LABS: Glucose, Whole Blood 209 mg/dL (60-115)
[2024-12-08 11:40] LABS: Glucose, Whole Blood 198 mg/dL (60-115)
[2024-12-08 12:09] VITALS: BP 137/77; PULSE 73; RESP 18; TEMP 36.6; O2SAT 97
--- NOTE | 2024-12-08 12:37 | PC.NURSE ---
Repeat BMP drawn and sent for analysis. Results pending. Care ongoing by this RN.
[2024-12-08 12:51] LABS: Anion Gap 13 (12-20); Blood Urea Nitrogen 31 mg/dL (9-16); Calcium 9.0 mg/dL (8.4-10.2); Carbon Dioxide 27 mmol/L (22-29); Chloride 99 mmol/L (96-108); Creatinine Clr Calc Pharmacy 50.7; Estimated Glomerular Filt Rate 41; Potassium 4.9 mmol/L (3.3-5.1); Sodium 134 mmol/L (135-145)
[2024-12-08 14:02] VITALS: BP 137/77; PULSE 73; RESP 18; TEMP 36.6; O2SAT 97
== END 2024-12-08 14:02 | disposition home or self-care (01) ==
PROVIDERS: Emergency Medicine; Emergency Provider Emergency Medicine
DX: R33.9 Retention of urine, unspecified (principal); E87.5 Hyperkalemia; E11.22 Type 2 diabetes mellitus with diabetic chronic kidney disease; I12.9 Hypertensive chronic kidney disease with stage 1 through stage 4 chronic kidney disease, or unspecified chronic kidney disease; N18.9 Chronic kidney disease, unspecified; Z96.0 Presence of urogenital implants
CPT/HCPCS: 36415; 51798; 80048; 81001; 82947; 85025; 87086; 87088; 87147; 96374; 99284

== ENCOUNTER 2024-12-15 15:36 | Emergency (ER) | payer OTHER, SELFPAY ==
[2024-12-15 16:03] VITALS: BP 178/86; PULSE 79; RESP 16; TEMP 36.9; O2SAT 98; BMI 31.0
--- NOTE | 2024-12-15 16:03 | ED_ITS ---
HPI - General Adult General Chief complaint: Urogenital-Male Stated complaint: blocked catheter; painful Time Seen by Provider: 12/15/24 17:24 History of Present Illness ED Provider: Homar ELMORE narrative: The patient is a 64-year-old male who has had an indwelling urinary catheter for the last few months. He 1st presented to the emergency room for acute urinary retention in August, 3 months ago. He has been seen at the urology office. He has been on several courses of antibiotics. He is currently on antibiotics. Today the catheter stopped working and he developed acute discomfort consistent with the urinary retention. He has not had a fever. The patient was most recently in the emergency room 1 week ago on December 07 and on December 08 as well. At that time he had presented with catheter obstruction. He was felt to have a UTI and was prescribed ciprofloxacin. He was last in the urology office on November 23. He had urine cultures sent on December 07 and December 08 both of which grew the same organisms, strep agalactiae I, and Viviana albicans. On previous urine cultures in September and in October he had several cultures positive for Proteus mirabilis. The patient is not have any fever, sweats, chills today. Related Data Home Medications ?Medication ?Instructions ?Recorded ?Confirmed aspirin 81 mg tablet,delayed 81 mg PO DAILY 03/29/20 0 10/05/24 release (Adult Aspirin Regimen) gabapentin 800 mg tablet 800 mg PO BID 03/29/2010/05 metformin 1,000 mg tablet 1,000 mg PO BID 03/29/2012/23 metoprolol succinate 200 mg 200 mg PO DAILY 03/29/20 0 10/05/24 tablet,extended release 24 hr alcohol swabs (Alcohol Prep Pads) pad topical DAILY 10/05/24 blood sugar diagnostic (FreeStyle #10 ea 08/29/21 0512/23 Lite Strips) lancets 33 gauge (TRUEplus Lancets) #100 ea 08/29/21 0 10/05/24 latanoprost 0.005 % eye drops 1 drp ophthalmic (eye) B EDTIME 08/29/21 10/05/24 melatonin 5 mg tablet 10 mg PO BEDTIME PRN insomni a 08/29/21 10/05/24 pantoprazole 20 mg tablet,delayed 20 mg PO DAILY 08/2910/05/24 release amlodipine 10 mg tablet 10 mg PO DAILY 02/25/2412/23 dulaglutide 4.5 mg/0.5 mL mg subcut 02/25/24 10/05/24 subcutaneous pen injector (Trulicity) pravastatin 40 mg tablet 40 mg PO DAILY 02/25/2412/23 empagliflozin 25 mg tablet 25 mg PO DAILY 06/15/2412/23 (Jardiance) acetaminophen 500 mg tablet 500 mg PO Q6H PRN mild dyllan n 10/05/24 10/05/24 Previous Rx's ?Medication ?Instructions ?Recorded diphenoxylate-atropine 2.5 1 tab PO DAILY PRN diarrhea #4 tabs 01/21/21 mg-0.025 mg tablet (Lomotil) docusate sodium 250 mg capsule 250 mg PO BID PRN const ipation #10 09/01/24 caps bisacodyl 5 mg tablet,delayed 5 mg PO ONCE 1 day #3 ta bs 09/16/24 release polyethylene glycol 3350 17 238 g PO ONCE laxative eff ect 1 09/16/24 gram/dose oral powder (Miralax) day #238 grams doxazosin 4 mg tablet 4 mg PO BEDTIME 30 days #30 tabs 10/28/24 finasteride 5 mg tablet 5 mg PO DAILY 90 days #90 ta bs 10/28/24 ascorbic acid (vitamin C) 1,000 mg 1,000 mg PO DAILY 9 0 days #90 tabs 11/23/24 tablet methenamine hippurate 1 gram tablet 1 g PO DAILY 90 da ys #90 tabs 11/23/24 ciprofloxacin HCl 500 mg tablet 500 mg PO BID #20 tabs 12/08/24 Allergies Allergy/AdvReac Type Severity Reaction Status Date / Time No Known Allergies (No Known Allergy Verified 12/15/24 16:07 Allergies*) Review of Systems 2 Review of Systems: Yes Unobtainable due to mental status PMFSH Past Medical History Medical History Osteomyelitis DM2 (diabetes mellitus, type 2) Essential hypertension Right lumbar radiculopathy Arthritis of both knees Balanitis Type 2 diabetes mellitus with polyneuropathy Hyperlipidemia LDL goal <100 Obesity due to excess calories Type 2 diabetes mellitus with hyperglycemia, with long-term current use of insulin Surgical History H/O colonoscopy Hx of tonsillectomy Hx of appendectomy Family History Family History Father No problems noted. 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 He was in no distress. He was in no discomfort. He was awake and alert, pleasant, cooperative. HENNM Other: ?Some right-sided facial weakness. The patient has a history of Jewell's palsy. Mucous membranes moist. Eyes Other: Pupils are round equal, conjunctivae are clear, extraocular movements intact Neck Neck: Yes normal visual inspection and Yes full ROM Resp Effort & Inspection: normal respiratory effort Auscultation: clear to auscultation bilaterally Cardio Rate: regular rate Rhythm: regular rhythm Heart sounds: S1 normal heart sound present and S2 normal heart sound present GI Other: The abdomen is soft and nontender (I examined him after he had had his urinary catheter flushed and it was draining) Skin Other: The skin is dry and unremarkable Neuro Other: The patient has right facial weakness consistent with previous Jewell's palsy. Cranial nerves are otherwise intact. His mental status is normal. He moves his extremities symmetrically. Extrem Other: There is no calf swelling or tenderness. No asymmetry. No peripheral edema. Course Course Course Narrative: This is a rapid medical exam performed by Marilyn Franklin NP: Additional HPI, ROS, PE not included below will be deferred to primary provider. Patient is a 64-year-old male with history of DM2, CKD, urinary retention with indwelling catheter, HTN presenting to the ED with complaint of blocked urinary catheter for several hours, associated pain. States his catheter was last changed 1 week ago. Currently on abx for UTI since 12/07. Last saw Dr. Jarrell in October. Denies fevers/chills. Plan: bladder scan, UA Medications Administered Discontinued Medications Generic Name Dose Route Start Last Admin Trade Name Freq PRN Reason Stop Dose Admin Sodium Chloride 1,000 mls @ 999 mls/hr 12/15/24 17:45 12/15/24 19:00 Ns IV 12/15/24 18:45 Infused .Q1H1M FLY Infusion Medical Decision Making Medical Decision Making [facility] Narrative: The patient is a 64-year-old male who has been having problems with urinary retention for the last 3 or 4 months. He has had an indwelling urinary catheter. He has been seen at the urology office. He has had multiple emergency room visits for catheter dysfunction and acute urinary retention despite a catheter. He has also had several positive urine cultures. He presents today with a catheter in place that has been in place for about a week. The catheter was nonfunctional and he seemed to be an urinary retention. The catheter was flushed by nursing and urine flow resumed after the 1st attempt at flushing. The patient is still on antibiotics from his last emergency room visit he says. The patient is not seem toxic or septic. The patient's urinalysis is probably consistent with a UTI but I suspect the patient is probably colonized at this point. He has some chronic renal insufficiency. He has chronic renal insufficiency was slightly worse today. This is presumably on the basis of bladder outlet obstruction from his catheter malfunction. He was given 1 L of IV fluids. I think that since his catheter is now functioning again his renal function should be able to restore itself with hydration. I think the patient may now be discharged with a functioning catheter. He should contact the urology office for follow up soon. He seems to be having a lot of trouble with management of his bladder outlet obstruction. Today's ER visit is his 8th ER visit in the last 4 months. Lab Data 12/15/24 17:07 12/15/24 17:07 Labs: Lab Results 12/15/24 12/15/24 Range/Units 17:07 17:17 WBC 9.6 (4.8-10.8) X10*3/uL RBC 4.98 (4.60-5.80) X10*6/uL Hgb 14.2 (14.0-18.0) g/dl Hct 40.5 L (42.0-52.0) % MCV 81.3 (80.0-98.0) fL MCH 28.5 (27.0-33.0) pg MCHC 35.1 (31.0-36.0) g/dl RDW 12.6 (11.0-16.0) % Plt Count 229 (160-400) X10*3/uL MPV 9.6 (9.4-12.4) fL Immature Gran % (Auto) 0.7 H (0.0-0.4) % Neut % (Auto) 63.8 (45-73) % Lymph % (Auto) 20.5 (20-40) % Crowley % (Auto) 12.3 H (2-11) % Eos % (Auto) 2.2 (0-4) % Baso % (Auto) 0.5 (0-2) % Lymph # (Auto) 2.0 (1.2-4.9) X10*3/uL Crowley # (Auto) 1.2 (0.1-1.2) X10*3/uL Eos # (Auto) 0.2 (0.0-0.4) X10*3/uL Baso # (Auto) 0.1 (0.0-0.2) X10*3/uL Abs Immat Gran (auto) 0.07 H (0.00-0.03) X10*3/uL Absolute Neuts (auto) 6.2 (2.0-8.3) x10*3/uL Absolute Nucleated RBC 0.000 (0.0-0.012) X10*3/uL Nucleated RBC % (auto) 0.0 (0.0-0.2) /100WBC Sodium 134 L (135-145) mmol/L Potassium 5.6 H (3.3-5.1) mmol/L Chloride 99 (96-108) mmol/L Carbon Dioxide 25 (22-29) mmol/L Anion Gap 16 (12-20) BUN 35 H (9-16) mg/dL Creatinine 2.20 H (0.5-1.4) mg/dL Estim Creat Clear Calc 38.7 Estimated GFR 30 Random Glucose 314 H (60-115) mg/dL Calcium 9.7 D (8.4-10.2) mg/dL Total Bilirubin 0.3 (0.0-1.0) mg/dL AST 27 (5-37) U/L ALT 26 (0-40) U/L Alkaline Phosphatase 79 (39-117) U/L Total Protein 8.9 H (6.5-8.0) g/dL Albumin 4.2 (3.5-5.0) g/dL Urine Color Yellow Urine Appearance Cloudy Urine pH 6.0 (5.0-9.0) Ur Specific [place] 1.025 (1.005-1.025) Urine Protein 30 (1+) H (Neg-Trace) mg/dL Urine Glucose (UA) >=1000 H (Negative) mg/dL Urine Ketones Negative (Negative) mg/dL Urine Blood Large (3+) H (Negative) Urine Nitrite Negative (Negative) Ur Leukocyte Esterase Moderate (2+) H (Negative) Urine RBC >20 H (0-2) /HPF Urine WBC >50 H (0-5) /HPF Ur Squamous Epith Cells 0-2 (0-2) /HPF Urine Bacteria None Seen (None Seen) Hyaline Casts 0-2 (0-2) /LPF Urine Yeast Present Discharge Plan Discharge Clinical Impression: Urinary catheter dysfunction Patient Disposition: Home, Self-Care Additional Instructions: Your catheter seemed to resume function very easily after simple flushing. Please make sure that you drink lot of water every day to help keep things flowing. Continue your current antibiotics. Please call the urology office in the morning to discuss this episode further. Let them know you were here in the emergency room because the catheter had stopped working. Return to the emergency room if significantly worse. Prescriptions: No Action diphenoxylate-atropine [Lomotil] 2.5-0.025 mg tablet 1 tab PO DAILY PRN (Reason: diarrhea) Qty: 4 0RF docusate sodium 250 mg capsule 250 mg PO BID PRN (Reason: constipation) Qty: 10 0RF ciprofloxacin HCl 500 mg tablet 500 mg PO BID Qty: 20 0RF metformin 1,000 mg tablet 1,000 mg PO BID gabapentin 800 mg tablet 800 mg PO BID metoprolol succinate 200 mg tablet extended release 24 hr 200 mg PO DAILY aspirin [Adult Aspirin Regimen] 81 mg tablet,delayed release (DR/EC) 81 mg PO DAILY melatonin 5 mg tablet 10 mg PO BEDTIME PRN (Reason: insomnia) pantoprazole 20 mg tablet,delayed release (DR/EC) 20 mg PO DAILY alcohol swabs [Alcohol Prep Pads] Pads, Medicated topical DAILY (DME) FreeStyle Lite Strips Strip See Rx Instructions Not Applicable DAILY Qty: 10 Rx Instructions: As directed latanoprost 0.005 % drops 1 drp ophthalmic (eye) BEDTIME (DME) lancets [TRUEplus Lancets] 33 gauge misc See Rx Instructions Not Applicable DAILY Qty: 100 Rx Instructions: As directed amlodipine 10 mg tablet 10 mg PO DAILY Trulicity 4.5 mg/0.5 mL pen injector subcut pravastatin 40 mg tablet 40 mg PO DAILY Jardiance 25 mg tablet 25 mg PO DAILY polyethylene glycol 3350 [Miralax] 17 gram/dose powder 238 g PO ONCE 1 Days Qty: 238 0RF Rx Instructions: Take as directed by mouth the day before your procedure. bisacodyl 5 mg tablet,delayed release (DR/EC) 5 mg PO ONCE 1 Days Qty: 3 0RF Rx Instructions: per colonoscopy instructions acetaminophen 500 mg tablet 500 mg PO Q6H PRN (Reason: mild pain) doxazosin 4 mg tablet 4 mg PO BEDTIME 30 Days Qty: 30 1RF finasteride 5 mg tablet 5 mg PO DAILY 90 Days Qty: 90 1RF ascorbic acid (vitamin C) 1,000 mg tablet 1,000 mg PO DAILY 90 Days Qty: 90 1RF methenamine hippurate 1 gram tablet 1 g PO DAILY 90 Days Qty: 90 1RF Referrals: [facility] [Provider Group, Urology] Interventions: ED Discharge Assessment Last Done: 12/15/24 19:49 Discharge Date/Time: 12/15/24 19:50 Print Language: Serbian
--- OUTSIDE RECORDS SUMMARY | 2024-12-15 17:07 | XMS_ITS | Encounter Summary ---
Author Organization [employer] Address [address] [facility] [address] [place] [address] Care Team Providers Care Shredder Picker Name Role Phone Annia [facility] Primary Care Provider [phone] Elena Nichols PharmD Unavailable [phone] Reason for Visit * Reason Comments Med Refill Encounter Details Date Type Department Care Team ([facility] Contact Info) Description 08/31/2024 Refill [facility] [address] [place], [place] [id number] [place] [facility] ER [address] [place] [address] Primary hypertension Social History Tobacco Use Types [...] Care Team (Late st Contact Info) Description 12/22/2024 2:00 PM EDT Medication Management [facility] [address] [place] [phone] Elena Nichols PharmD [address] [place] [id number] 01/11/2025 2:00 PM EDT Office Visit [facility] [address] [place] [phone] Tg Milner FNP [address] [place] [address] documented as of this encounter Visit Diagnoses Diagnosis Primary hypertension Unspecified essential hypertension documented in this encounter Additional Health Concerns Assessment Noted Time PHQ-9 Depression Total Score: 0 07/22/19 25 10:03 AM EST documented as of this encounter Care Teams Shredder Picker Relationship Specialty Start Date End Date Tg Milner FNP [address] [place] [id number] PCP - General Family Medicine 04/28/22 Elena Nichols PharmD [address] [place] [phone] Pharmacist Pharmacy 12/13/24 documented as of this encounter
--- OUTSIDE RECORDS SUMMARY | 2024-12-15 17:07 | XMS_ITS | Clinical Summary ---
Author Organization [address] [place] [address] Address [address] [place] [address] Phone Care Team Providers Care Wafer Fab Operator Name Role Phone [facility] Primary Care Provider Allergies No known active [...] injector injection Inject into the skin. Active Medical History Medical History Date Comments Hypertension [...] Procedure Name Priority Date/Time Associated Diagnosis Comments BASIC METABOLIC PANEL STAT 09/12/2024 7:05 PM EDT from Last 3 Months or Most Recently Relevant to Health Maintenance Results * (ABNORMAL) Basic metabolic panel (09/12/2024 7:05 PM EDT) Sodium 132(L) 133 - 145 mmol/L LAB CHEMISTRY METHOD 09/12/2024 8:05 PM [facility] Potassium 4.3 3.5 - 5.5 mmol/L LAB CHEMISTRY METHOD 09/12/2024 8:05 PM [facility] Chloride 100 96 - 110 mmol/L LAB CHEMISTRY METHOD 09/12/2024 8:05 PM [facility] CO2 25 21 - 32 mmol/L LAB CHEMISTRY METHOD 09/12/2024 8:05 PM [facility] Anion Gap 7 3 - 11 LAB CHEMISTRY METHOD 09/12/2024 8:05 PM [facility] Glucose 216(H) 70 - 100 mg/dL LAB CHEMISTRY METHOD 09/12/2024 8:05 PM [facility] BUN 31(H) 5 - 25 mg/dL LAB CHEMISTRY METHOD 09/12/2024 8:05 PM [facility] Creatinine 1.87(H) 0.70 - 1.30 mg/dL LAB CHEMISTRY METHOD 09/12/2024 8:05 PM [facility] eGFR 39(L) >=60 mL/min/1. 73m2 LAB CHEMISTRY METHOD 09/12/2024 8:05 PM EDT [facility] Comment:Calculation based on the Chronic Kidney Disease Epidemiology Collaboration (CKD-EPI) equation refit without adjustment for race. BUN/Creatinine Ratio 16.6 LAB CHEMISTRY METHOD 09/12/2024 8:05 PM EDT [facility] Calcium 9.7 8.5 - 10.5 mg/dL LAB CHEMISTRY METHOD 09/12/2024 8:05 PM EDT [facility] Blood Venous blood specimen / Unknown Venipuncture / Unknown 09/12/2024 7:05 PM EDT 09/12/2024 7:34 PM EDT us Paloma Perry MD LAB BLOOD ORDERABLES Fin al Result [facility] [address] [place] [address], from Last 3 Months or Most Recently Relevant to Health Maintenance Insurance [facility] [employer] Member Subscriber Plan / Payer (Ef fective 2024-Present) Name:Brandt Nelson Relation to Subscriber:Self Name:Brandt Nelson Payer ID:[id number] Group ID:Not on file Type:Not on file Address: [place] [address] Care Teams Wafer Fab Operator Relationship Specialty Start Date End Date [facility] [address] [facility] [address] [place] [address] PCP - General 01/05/24
[2024-12-15 17:11] LABS: MANUAL DIFF FLAG NO
[2024-12-15 17:14] LABS: Hematocrit 40.5 % (42.0-52.0); Hemoglobin 14.2 g/dl (14.0-18.0); Imm Gran Abs Auto 0.07 X10*3/uL (0.00-0.03); Imm Gran Pct Auto 0.7 % (0.0-0.4); Lymphocytes Absolute Auto 2.0 X10*3/uL (1.2-4.9); Mean Corpuscular HGB Conc 35.1 g/dl (31.0-36.0); Mean Corpuscular Hemoglobin 28.5 pg (27.0-33.0); Mean Corpuscular Volume 81.3 fL (80.0-98.0); NRBC Abs Auto 0.000 X10*3/uL (0.0-0.012); NRBC Pct Auto 0.0 /100WBC (0.0-0.2); Platelet Count 229 X10*3/uL (160-400); Red Blood Count 4.98 X10*6/uL (4.60-5.80); White Blood Count 9.6 X10*3/uL (4.8-10.8)
[2024-12-15 17:27] LABS: Appearance Urine Cloudy; Glucose Urine UA >=1000 mg/dL (Negative); PH 6.0 (5.0-9.0); Specific Gravity - Urine 1.025 (1.005-1.025); UMIC TRIGGER UACC YES
[2024-12-15 17:29] LABS: Alanine Aminotransferase 26 U/L (0-40); Albumin Level 4.2 g/dL (3.5-5.0); Alkaline Phosphatase 79 U/L (39-117); Anion Gap 16 (12-20); Aspartate Amino Transferase 27 U/L (5-37); Blood Urea Nitrogen 35 mg/dL (9-16); Calcium 9.7 mg/dL (8.4-10.2); Carbon Dioxide 25 mmol/L (22-29); Chloride 99 mmol/L (96-108); Creatinine Clr Calc Pharmacy 38.7; Estimated Glomerular Filt Rate 30; Potassium 5.6 mmol/L (3.3-5.1); Sodium 134 mmol/L (135-145); Total Protein 8.9 g/dL (6.5-8.0)
--- NOTE | 2024-12-15 17:32 | PC.NURSE ---
bo cath flushed with small amount of resistance. Immediate drainage of urine. patient reporting bladder relief
[2024-12-15 17:41] LABS: UACC Culture Trigger YES
--- NOTE | 2024-12-15 17:48 | PC.NURSE ---
1500mls total output via bo cath after flushing catheter
[2024-12-15 18:18] VITALS: BP 176/68; PULSE 70; RESP 16; TEMP 36.7; O2SAT 98
[2024-12-15 19:49] VITALS: BP 176/68; PULSE 70; RESP 16; TEMP 36.7; O2SAT 98
== END 2024-12-15 19:50 | disposition home or self-care (01) ==
PROVIDERS: Registered Nurse Emergency; Emergency Provider Emergency Medicine
DX: R33.9 Retention of urine, unspecified (principal); R11.0 Nausea; T83.9XXA Unspecified complication of genitourinary prosthetic device, implant and graft, initial encounter; Y73.8 Miscellaneous gastroenterology and urology devices associated with adverse incidents, not elsewhere classified; Y92.89 Other specified places as the place of occurrence of the external cause; Z79.899 Other long term (current) drug therapy
CPT/HCPCS: 36415; 80053; 81001; 85025; 87086; 87088; 96360; 99284

== ENCOUNTER → 2024-12-28 14:02 | Outpatient (BNVA) | payer OTHER, SELFPAY | PROVIDERS: Visit Provider Urology | DX: Z46.82 Encounter for fitting and adjustment of non-vascular catheter (principal); R33.9 Retention of urine, unspecified | CPT/HCPCS: 51702 ==

== ENCOUNTER → 2025-01-12 10:07 | Outpatient (BNVA) | payer OTHER, SELFPAY | PROVIDERS: Visit Provider Urology | DX: Z46.6 Encounter for fitting and adjustment of urinary device (principal); R33.9 Retention of urine, unspecified | CPT/HCPCS: 51702 ==

== ENCOUNTER 2025-01-18 13:20 | Outpatient (REF) | payer OTHER, SELFPAY ==
[2025-01-18 17:31] LABS: Appearance Urine Turbid; Glucose Urine UA >=1000 mg/dL (Negative); PH 6.0 (5.0-9.0); Specific Gravity - Urine >= 1.030 (1.005-1.025); UMIC TRIGGER UA YES
[2025-01-18 17:39] LABS: Hematocrit 41.8 % (42.0-52.0); Hemoglobin 13.9 g/dl (14.0-18.0); Mean Corpuscular HGB Conc 33.3 g/dl (31.0-36.0); Mean Corpuscular Hemoglobin 28.0 pg (27.0-33.0); Mean Corpuscular Volume 84.3 fL (80.0-98.0); NRBC Abs Auto 0.000 X10*3/uL (0.0-0.012); NRBC Pct Auto 0.0 /100WBC (0.0-0.2); Platelet Count 229 X10*3/uL (160-400); Red Blood Count 4.96 X10*6/uL (4.60-5.80); White Blood Count 7.1 X10*3/uL (4.8-10.8)
[2025-01-18 18:30] LABS: Anion Gap 18 (12-20); Blood Urea Nitrogen 33 mg/dL (9-16); Calcium 9.8 mg/dL (8.4-10.2); Carbon Dioxide 23 mmol/L (22-29); Chloride 99 mmol/L (96-108); Estimated Glomerular Filt Rate 43; Potassium 5.7 mmol/L (3.3-5.1); Sodium 134 mmol/L (135-145)
== END 2025-01-18 13:21 | disposition home or self-care (01) ==
LOC: HO.HHCL 13:20
PROVIDERS: Visit Provider Internal Medicine Hypertension Specialist
DX: E11.22 Type 2 diabetes mellitus with diabetic chronic kidney disease (principal); I12.9 Hypertensive chronic kidney disease with stage 1 through stage 4 chronic kidney disease, or unspecified chronic kidney disease; N18.9 Chronic kidney disease, unspecified; E11.65 Type 2 diabetes mellitus with hyperglycemia; Z79.82 Long term (current) use of aspirin; Z79.4 Long term (current) use of insulin
CPT/HCPCS: 36415; 80048; 81001; 85027; 99212

== ENCOUNTER 2025-01-18 13:20 | Outpatient (AMB) | payer OTHER, SELFPAY ==
[2025-01-18 13:22] VITALS: BP 126/70; PULSE 68; O2SAT 99
--- NOTE | 2025-01-18 13:22 | HO.NEPHOV_ITS ---
Vital Signs 01/18/25 13:22 Height 5 ft 10 in BP 126/70 Blood Pressure Location Lt brachial Position Sitting Pulse 68 Pulse Source Pulse Oximeter Pulse Oximetry (%) 99 Oxygen Delivery Method Room Air Intake Visit Reasons: 3 month follow up LVM Air Support Control Officer Required: No Accompanied by: Daughter Allergies No Known Allergies (No Known Allergies*) Allergy (Verified 01/18/25 13:25) Medication List - Last Reconciled 01/18/25 by Keith Willis MD acetaminophen 500 mg PO Q6H PRN alcohol swabs (Alcohol Prep Pads) pad topical DAILY amlodipine 10 mg PO DAILY ascorbic acid (vitamin C) 1,000 mg PO DAILY 90 days aspirin (Adult Aspirin Regimen) 81 mg PO DAILY bisacodyl 5 mg PO ONCE 1 day blood sugar diagnostic (FreeStyle Lite Strips) As directed ciprofloxacin HCl 500 mg PO BID diphenoxylate-atropine 2.5-0.025 mg (Lomotil) 1 tab PO DAILY PRN docusate sodium 250 mg PO BID PRN doxazosin 4 mg PO BEDTIME 30 days dulaglutide (Trulicity) mg subcut empagliflozin-metformin 12.5-1,000 mg ER (Synjardy XR) 2 tabs PO QAM finasteride 5 mg PO DAILY 90 days gabapentin 800 mg PO BID insulin glargine (Lantus Solostar U-100 Insulin) 30 units subcut lancets (TRUEplus Lancets) As directed latanoprost 0.005% 1 drp ophthalmic (eye) BEDTIME melatonin 10 mg PO BEDTIME PRN methenamine hippurate 1 g PO DAILY 90 days metoprolol succinate ER 200 mg PO DAILY multivitamin 1 tab PO DAILY pantoprazole 20 mg PO DAILY polyethylene glycol 3350 (Miralax) 238 grams PO ONCE 1 day pravastatin 40 mg PO DAILY spironolacton-hydrochlorothiaz 25-25 mg 1 tab PO DAILY HPI Comments Details: Brandt is a pleasant 62-year-old man with a history of longstanding diabetes mellitus and hypertension. He has been referred for evaluation of chronic kidney disease. Over the past 2 years there has been a gradual increase in serum creatinine from 1.4 up to 1.8 mg/dL. As of 01/19/2024 serum creatinine was 1.8 mg/dL. He was on lisinopril 40 mg along with amlodipine and hydrochlorothiazide 40 mg a day. Recently lisinopril has been placed on hold. He has a history of taking NSAIDs for almost a year but he had stopped NSAIDs about 4 years ago. Ongoing medical problems also includes obstructive sleep apnea history of Jewell's palsy, diabetic polyneuropathy obesity and non alcoholic steatohepatitis. He has a history of smoking he quit smoking in 2022. No history of any alcohol abuse or drug abuse. He complains of increased urinary frequency. No hesitancy no hematuria. No shortness of breath. No cough. No nausea or vomiting. No chest pain. No rash no fever he has chronic leg edema. 05/18/24 Recent cellulitis ;On Doxy ;c/o increased urination 06/15/24 Doing better;Off HcTZ 10/05/24 Developed urinary retention Anaya was inserted. 01/16/25 The patient is a 64-year-old male with CKD ; Prostate hypertrophy scheduled for next month, with a catheter in place for three months. No recent blood test since November; Diabetes mellitus managed with Jardiance, insulin 30 units daily. Glucose monitor setup issues due to lost number. Hyperkalemia episodes noted, with high potassium in November. Potassium level to be checked today due to spironolactone hydrochlorothiazide use. MEDICATIONS: - Jardiance for diabetes mellitus - Insulin 30 units daily for diabetes mellitus - Spironolactone hydrochlorothiazide for hypertension ON LICENSE OF [facility] Medical History Osteomyelitis DM2 (diabetes mellitus, type 2) Essential hypertension Right lumbar radiculopathy Arthritis of both knees Balanitis Type 2 diabetes mellitus with polyneuropathy Hyperlipidemia LDL goal <100 Obesity due to excess calories Type 2 diabetes mellitus with hyperglycemia, with long-term current use of insulin Surgical History H/O colonoscopy Hx of tonsillectomy Hx of appendectomy Family History Father No problems noted. 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 Lungs entry equal no rales. Heart S1-S2 heard no gallop or rub. Abdomen soft nontender. Neuro alert awake oriented. No asterixis. Extremities no edema. Anaya catheter in place Const General: comfortable Nutritional Appearance: well nourished Orientation/consciousness: patient oriented x3 HEENT Head: No normal to inspection Mouth: moist mucous membranes Neck Neck: Yes supple and Yes no JVD Resp Auscultation: clear to auscultation bilaterally and no rales Cardio Jugular venous distension: no JVD Palpation: no palpable S3 and no palpable S4 Heart sounds: no rubs GI Palpation (GI): Soft to palpation and nontender Percussion: No Fluid wave present General: Yes no CVA tenderness Back/Spine/Pelvis Back: no CVA tenderness Skin General skin exam: no rashes or lesions noted Neuro General: patient oriented x3 Extrem General: Yes no pedal edema and No clubbing Results Reviewed Nephrology Results: Hgb, (14.0-18.0) 14.2 g/dl 12/15/24 WBC, (4.8-10.8) 9.6 X10*3/uL 12/15/24 Plt Count, (160-400) 229 X10*3/uL 12/15/24 Sodium, (135-145) 134 mmol/L L 12/15/24 Potassium, (3.3-5.1) 5.6 mmol/L H 12/15/24 Chloride, (96-108) 99 mmol/L 12/15/24 Carbon Dioxide, (22-29) 25 mmol/L 12/15/24 BUN, (9-16) 35 mg/dL H 12/15/24 Creatinine, (0.5-1.4) 2.20 mg/dL H 12/15/24 Calcium, (8.4-10.2) 9.7 mg/dL Δ 12/15/24 Urine Protein, (Neg-Trace) 30 (1+) mg/dL H 12/15/24 Renal US 03/24/24 Assessment & Plan Assessment & Plan (1) CKD (chronic kidney disease): Code(s): N18.9 - Chronic kidney disease, unspecified Category: Medical (2) Essential hypertension: Code(s): I10 - Essential (primary) hypertension Category: Medical (3) DM2 (diabetes mellitus, type 2): Code(s): E11.9 - Type 2 diabetes mellitus without complications Category: Medical Qualifiers: Diabetes mellitus complication status: with hyperglycemia Diabetes mellitus molder punch insulin use: without assisted use Qualified Code(s): E11.65 - Type 2 diabetes mellitus with hyperglycemia Plan 64-year-old man with a history of longstanding diabetes mellitus hypertension with obesity and sleep apnea has chronic kidney disease. Over the last 3 years has been a gradual increase serum creatinine from 1.4-1.8. He probably has underlying chronic kidney disease due to hypertensive diabetic kidney disease. . urine sediments were benign and therefore interstitial nephritis or glomerular nephritis seem unlikely at this time Recommendation Keep catheter Await Urological procedure Check Chem 7 today May need Lokelma if K > 5.5 Maintain blood pressure less than 130/80. Stay on low-sodium /low K diet diet. Encouraged weight loss. Continue to avoid nephrotoxic agents including NSAIDs. Orders: Orders Basic Metabolic Panel Today N18.9 - Chronic kidney disease, unspecified Complete Blood Count no Diff Today N18.9 - Chronic kidney disease, unspecified Coding Level of Care Code Est Pt Level 4 (48676) Diagnoses CKD (chronic kidney disease) N18.9 Essential hypertension I10 Type 2 diabetes mellitus with hyperglycemia, without long-term current use of insulin E11.65 Diabetes mellitus complication status: with hyperglycemia Diabetes mellitus assisted insulin use: without assisted use
--- OUTSIDE RECORDS SUMMARY | 2025-01-18 14:14 | XMS_ITS | Encounter Summary ---
Author Organization [facility] Address [address] [facility] 7t [place] [address] Care Team Providers Care Race Relations Adviser Name Role Phone Annia [facility] Primary Care Provider [phone] Elena Nichols PharmD Unavailable [phone] Reason for Visit * Reason Comments Med Refill Encounter Details Date Type Department Care Team ([facility] Contact Info) Description 08/31/2024 Refill [facility] MEDICINE [address] [place], [place] [phone] [place] [facility] [address] [place] [address] Primary hypertension Social History Tobacco Use Types [...] Care Team (Late st Contact Info) Description 02/20/2025 1:00 PM EDT Medication Management [facility] MEDICINE [address] [place] [phone] Elena Nichols PharmD [address] [place] [phone] 03/01/2025 2:45 PM EDT Office Visit [facility] MEDICINE [address] [place] [address] Tg Milner FNP [address] [place] [address] documented as of this encounter Visit Diagnoses Diagnosis Primary hypertension Unspecified essential hypertension documented in this encounter Additional Health Concerns Assessment Noted Time PHQ-9 Depression Total Score: 0 07/22/19 25 10:03 AM EST documented as of this encounter Care Teams Race Relations Adviser Relationship Specialty Start Date End Date Tg Milner FNP [address] [place] [phone] PCP - General Family Medicine 04/28/22 Elena Nichols PharmD [address] [place] [phone] Pharmacist Pharmacy 12/13/24 documented as of this encounter
--- OUTSIDE RECORDS SUMMARY | 2025-01-18 14:14 | XMS_ITS | Clinical Summary ---
Author Organization [address] [place] [address] Address [address] [place] [address] Phone Care Team Providers Care Masking Machine Operator Name Role Phone [facility] Primary Care Provider [phone] Allergies No known active allergies Medications acetaminophen [...] Vaccine (1 - 2023-2 5 season) 2024 Depression Screening 06/01/2024 Diabetes: Annual Urine Albumin-Creatinine Ratio (uACR) 09/13/2024 Diabetes: Blood Sugar Contro l Test (HGBA1C) 01/19/2025 07/22/2024 Influenza Vaccine (#1) 2025 Diabetes: Annual GFR (Glomerular Filtration Rate) 09/12/2025 [...] mmol/L LAB CHEMISTRY METHOD 09/12/2024 8:05 PM [facility] Potassium 4.3 3.5 - 5.5 mmol/L LAB CHEMISTRY METHOD 09/12/2024 8:05 PM [facility] Chloride 100 96 - 110 mmol/L LAB CHEMISTRY METHOD 09/12/2024 8:05 PM [facility] CO2 25 21 - 32 mmol/L LAB CHEMISTRY METHOD 09/12/2024 8:05 PM [facility] Anion Gap 7 3 - 11 LAB CHEMISTRY METHOD 09/12/2024 8:05 PM [facility] Glucose 216(H) 70 - 100 mg/dL LAB CHEMISTRY METHOD 09/12/2024 8:05 PM [facility] BUN 31(H) 5 - 25 mg/dL LAB CHEMISTRY METHOD 09/12/2024 8:05 PM [facility] Creatinine 1.87(H) 0.70 - 1.30 mg/dL LAB CHEMISTRY METHOD 09/12/2024 8:05 PM EDT [facility] eGFR 39(L) >=60 mL/min/1. 73m2 LAB CHEMISTRY METHOD 09/12/2024 8:05 PM EDT [facility] Comment:Calculation based on the Chronic Kidney Disease Epidemiology Collaboration (CKD-EPI) equation refit without adjustment for race. BUN/Creatinine Ratio 16.6 LAB CHEMISTRY METHOD 09/12/2024 8:05 PM EDT [facility] Calcium 9.7 8.5 - 10.5 mg/dL LAB CHEMISTRY METHOD 09/12/2024 8:05 PM EDT [facility] Blood Venous blood specimen / Unknown Venipuncture / Unknown 09/12/2024 7:05 PM EDT 09/12/2024 7:34 PM EDT us Paloma Perry MD LAB BLOOD ORDERABLES Fin al Result [facility] ([facility] [address] [place] [address], from Last 3 Months or Most Recently Relevant to Health Maintenance Insurance [employer] Member Subscriber Plan / Payer (Ef fective 2024-Present) Name:Brandt Nelson Relation to Subscriber:Self Name:Brandt Nelson Payer ID:[id number] Group ID:Not on file Type:Not on file Address: [address] [place] [address] Care Teams Masking Machine Operator Relationship Specialty Start Date End Date Annia Tg [address] [facility] [address] [place] [address] PCP - General 01/05/24
== END 2025-01-18 13:47 | disposition home or self-care (01) ==
LOC: HO.HKAM 13:20
PROVIDERS: Visit Provider Internal Medicine Hypertension Specialist
DX: I12.9 Hypertensive chronic kidney disease with stage 1 through stage 4 chronic kidney disease, or unspecified chronic kidney disease (principal); N18.9 Chronic kidney disease, unspecified; E11.65 Type 2 diabetes mellitus with hyperglycemia
CPT/HCPCS: 99214

== ENCOUNTER 2025-01-31 09:38 | Outpatient (AMB) | payer OTHER, SELFPAY ==
--- NOTE | 2025-01-31 10:02 | MHC.OFFVIS ---
Vital Signs 01/31/25 10:03 Height 5 ft 10 in Weight 213 lb 6.519 oz BMI 30.6 BP 124/66 Blood Pressure Location Lt brachial Position Sitting Pulse 66 Pulse Source Monitor Intake Visit Reasons: ACCREDITATION SPECIALIST/Tg [place]/ rbbb/ preop 02/06 surgery Community Health Nursing Director Required: Yes Community Health Nursing Director Language: Utilization Management Rn Name: voyce/lao/ Accompanied by: Self / Same As Patient Allergies No Known Allergies (No Known Allergies*) Allergy (Verified 01/18/25 13:25) Medication List - Last Reconciled 01/31/25 by Draen Ellis MD acetaminophen 500 mg PO Q6H PRN alcohol swabs (Alcohol Prep Pads) pad topical DAILY amlodipine 10 mg PO DAILY ascorbic acid (vitamin C) 1,000 mg PO DAILY 90 days aspirin (Adult Aspirin Regimen) 81 mg PO DAILY bisacodyl 5 mg PO ONCE 1 day blood sugar diagnostic (FreeStyle Lite Strips) As directed ciprofloxacin HCl 500 mg PO BID diphenoxylate-atropine 2.5-0.025 mg (Lomotil) 1 tab PO DAILY PRN docusate sodium 250 mg PO BID PRN doxazosin 4 mg PO BEDTIME 30 days dulaglutide (Trulicity) mg subcut empagliflozin-metformin 12.5-1,000 mg ER (Synjardy XR) 2 tabs PO QAM finasteride 5 mg PO DAILY 90 days gabapentin 800 mg PO BID insulin glargine (Lantus Solostar U-100 Insulin) 30 units subcut lancets (TRUEplus Lancets) As directed latanoprost 0.005% 1 drp ophthalmic (eye) BEDTIME melatonin 10 mg PO BEDTIME PRN methenamine hippurate 1 g PO DAILY 90 days metoprolol succinate ER 200 mg PO DAILY multivitamin 1 tab PO DAILY pantoprazole 20 mg PO DAILY polyethylene glycol 3350 (Miralax) 238 grams PO ONCE 1 day pravastatin 40 mg PO DAILY sodium zirconium cyclosilicate (Lokelma) 5 grams PO DAILY spironolacton-hydrochlorothiaz 25-25 mg 1 tab PO DAILY HPI Comments Details: Brandt is here for consultation regarding preoperative risk stratification for urological surgery under general anesthesia. Patient denies any previous cardiac issues including coronary disease or myocardial infarction or cardiomyopathy. Many comorbidities over. Poorly controlled diabetes. Per PCP note, hemoglobin A1c was recently 10, which is extremely high. Also has hypertension and dyslipidemia on medications. He has a cane but within limits of his activity, he denies any clear-cut symptoms like angina or shortness of breath. [facility] Medical History Osteomyelitis DM2 (diabetes mellitus, type 2) Essential hypertension Right lumbar radiculopathy Arthritis of both knees Balanitis Type 2 diabetes mellitus with polyneuropathy Hyperlipidemia LDL goal <100 Obesity due to excess calories Type 2 diabetes mellitus with hyperglycemia, with long-term current use of insulin Surgical History H/O colonoscopy Hx of tonsillectomy Hx of appendectomy Family History Father No problems noted. 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 Review of Systems Const Denies chills, Denies fatigue, Denies fever(s), Denies frequent falls, Denies weakness, Denies weight gain and Denies weight loss ENT Denies dizziness Card Denies chest pain, Denies leg edema, Denies lightheadedness, Denies palpitations, Denies dyspnea and Denies dyspnea on exertion Resp Denies cough, Denies dyspnea and Denies dyspnea on exertion GI Denies hematochezia Musc Denies abnormal gait, Denies muscle weakness, Denies numbness, Denies radiating pain into limb and Denies tingling Neuro Denies abnormal gait, Denies dizziness, Denies frequent falls, Denies numbness, Denies tingling and Denies weakness Endo Denies fatigue and Denies palpitations Physical Exam Vital Signs: Last Vital Signs Pulse 66 01/31/25 10:03 BP 124/66 01/31/25 10:03 BMI result Body Mass Index 30.6 Const General: comfortable and no acute distress Orientation/consciousness: patient oriented x3 HEENT Other: Unremarkable Head: Yes normal to inspection Neck Neck: Yes normal visual inspection Chest Chest palpation & inspection: normal inspection of the chest Resp Auscultation: clear to auscultation bilaterally Cardio Palpation: normal PMI Heart sounds: S1 normal heart sound present, S2 normal heart sound present, no gallops, Murmur heart sound present systolic II/ and at the right sternal border and no rubs GI Palpation (GI): Soft to palpation Back/Spine/Pelvis Other: unremarkable Skin General skin exam: no rashes or lesions noted Neuro General: patient oriented x3 Extrem General: Yes normal to inspection Psych Mental Status: mental status grossly normal Office Procedures EKG Details: EKG with underlying sinus rhythm at 66/Min; [place] prolongation to 220 milliseconds; right bundle-branch block; [place]. [id number], Complete Assessment & Plan Assessment & Plan (1) Preoperative cardiovascular examination: Code(s): Z01.810 - Encounter for preprocedural cardiovascular examination Category: Medical (2) DM2 (diabetes mellitus, type 2): Code(s): E11.9 - Type 2 diabetes mellitus without complications Category: Medical Qualifiers: Diabetes mellitus intermission coordinator insulin use: without intermission coordinator use Diabetes mellitus complication status: with hyperglycemia Qualified Code(s): E11.65 - Type 2 diabetes mellitus with hyperglycemia (3) Essential hypertension: Code(s): I10 - Essential (primary) hypertension Category: Medical (4) Hyperlipidemia LDL goal <100: Code(s): E78.5 - Hyperlipidemia, unspecified Category: Medical (5) Obesity due to excess calories: Code(s): E66.09 - Other obesity due to excess calories Category: Medical Qualifiers: Obesity classification: adult class 1 (BMI 30 - 34.9) Serious obesity comorbidity presence: with serious comorbidity Body mass index: BMI 34.0-34.9 Qualified Code(s): E66.09 - Other obesity due to excess calories; Z68.34 - Body mass index [BMI] 34.0-34.9, adult (6) CKD (chronic kidney disease): Code(s): N18.9 - Chronic kidney disease, unspecified Category: Medical Plan Multiple cardiovascular risk factors but no established CAD or overt symptoms. EKG with prolonged [place] and right bundle-branch block but he is also on high dose of beta-blockers. We will obtain an echocardiogram and pharmacological stress perfusion imaging study. Once these are reviewed, we can make an addendum regarding perioperative risk. With regard to conduction system disease, recommend that beta-panda dose be decreased which can be done through his own PCP. Orders: Orders CA echo transthoracic complete Today I25.10 - Atherosclerotic heart disease of [place] coronary artery without angina pectoris, Z01.810 - Encounter for preprocedural cardiovascular examination CA lexiscan stress w adin Today Z01.810 - Encounter for preprocedural cardiovascular examination NM cardiolite stress test Today E11.65 - Type 2 diabetes mellitus with hyperglycemia, Z01.810 - Encounter for preprocedural cardiovascular examination Coding Level of Care Code New Pt Level 4 (91358) Complex EM visit Add On G2211 Diagnoses Preoperative cardiovascular examination Z01.810 Type 2 diabetes mellitus with hyperglycemia, without long-term current use of insulin E11.65 Diabetes mellitus intermission coordinator insulin use: without intermission coordinator use Diabetes mellitus complication status: with hyperglycemia Essential hypertension I10 Hyperlipidemia LDL goal <100 E78.5 Class 1 obesity due to excess calories with serious comorbidity and body mass index (BMI) of 34.0 to 34.9 in adult E66.09; Z68.34 Obesity classification: adult class 1 (BMI 30 - 34.9) Serious obesity comorbidity presence: with serious comorbidity Body mass index: BMI 34.0-34.9 CKD (chronic kidney disease) N18.9 CPT Codes EKG - CPT: 86770-[id number], Complete ([id number])
[2025-01-31 10:03] VITALS: BP 124/66; PULSE 66; BMI 30.6
--- OUTSIDE RECORDS SUMMARY | 2025-01-31 10:42 | XMS_ITS | Encounter Summary ---
Author Organization [facility] Address [address] [facility] 7t [place] [address] Care Team Providers Care Pony Trimmer Name Role Phone Annia [facility] Primary Care Provider [phone] Elena Nichols PharmD Unavailable [phone] Reason for Visit * Reason Comments Med Refill Encounter Details Date Type Department Care Team ([facility] Contact Info) Description 08/31/2024 Refill [facility] MEDICINE [address] [place], [place] [phone] [place] [address] [place] [address] Primary hypertension Social History Tobacco Use Types [...] Description 02/20/2025 1:00 PM EDT Medication Management [facility] MEDICINE [address] [place] [phone] Elena Nichols PharmD [address] [place] [address] 03/01/2025 2:45 PM EDT Office Visit [facility] MEDICINE [address] [place] [address] Tg Milner FNP [address] [place] [address] documented as of this encounter Visit Diagnoses Diagnosis Primary hypertension Unspecified essential hypertension documented in this encounter Additional Health Concerns Assessment Noted Time PHQ-9 Depression Total Score: 0 07/22/19 25 10:03 AM EST documented as of this encounter Care Teams Pony Trimmer Relationship Specialty Start Date End Date Tg Milner FNP [address] [place] [address] PCP - General Family Medicine 04/28/22 Elena Nichols PharmD [address] [place] [phone] Pharmacist Pharmacy 12/13/24 documented as of this encounter
--- OUTSIDE RECORDS SUMMARY | 2025-01-31 10:42 | XMS_ITS | Encounter Summary ---
Author Organization [facility] Address [address] [place] [id number] Care Team Providers Care Inserter Name Role Phone Annia [facility] Primary Care Provider [phone] Elena Nichols PharmD Unavailable [phone] Reason for Visit * Reason Comments Med Refill Encounter Details Date Type Department Care Team (Late st Contact Info) Description 12/25/2022 Refill [facility] MEDICINE [address] [place] [address] [phone] [place], [place] [facility] [address] [place], [place] [phone] Type 2 diabetes mellitus without complication, without long-term current use of insulin ([facility]) Social History Tobacco Use Types Packs/Day Years [...] Description 02/20/2025 1:00 PM EDT Medication Management [facility] MEDICINE [address] [place] [address] [phone] Elena Nichols, PharmD [address] [place] [address] 03/01/2025 2:45 PM EDT Office Visit [facility] MEDICINE [address] [place] [address] Tg Milner FNP [address] [place] [address] documented as of this encounter Visit Diagnoses Diagnosis Type 2 diabetes mellitus without complication, without long-term current use of insulin ([facility]) documented in this encounter Additional Health Concerns Assessment Noted Time PHQ-9 Depression Total Score: 0 11/25/19 23 3:32 PM EDT documented as of this encounter Care Teams Inserter Relationship Specialty Start Date End Date Tg Milner FNP [address] [place] [address] PCP - General Family Medicine 04/28/22 Elena Nichols PharmD [address] [place] [address]38 Pharmacist Pharmacy 12/13/24 documented as of this encounter
--- OUTSIDE RECORDS SUMMARY | 2025-01-31 10:42 | XMS_ITS | Clinical Summary ---
Author Organization [address] [place] [address] Address [address] [place] [address] Phone Care Team Providers Care Tower Climber Name Role Phone [facility] Primary Care Provider [phone] Allergies No known active allergies Medications acetaminophen [...] Health Screening 05/04/2022 Falls Risk Assessment 10/22/2023 Depression Screening 06/01/2024 Diabetes: Annual Urine Albumin-Creatinine Ratio (uACR) 09/13/2024 Diabetes: Blood Sugar Contro l Test (HGBA1C) 01/19/2025 07/22/2024 COVID-19 Vaccine (1 - 2023-2 5 season) 2025 Influenza Vaccine (#1) 2025 Diabetes: Annual GFR [...] mmol/L LAB CHEMISTRY METHOD 09/12/2024 8:05 PM [facility] Potassium 4.3 3.5 - 5.5 mmol/L LAB CHEMISTRY METHOD 09/12/2024 8:05 PM [facility] Chloride 100 96 - 110 mmol/L LAB CHEMISTRY METHOD 09/12/2024 8:05 PM [facility] CO2 25 21 - 32 mmol/L LAB CHEMISTRY METHOD 09/12/2024 8:05 PM [facility] Anion Gap 7 3 - 11 LAB CHEMISTRY METHOD 09/12/2024 8:05 PM [facility] Glucose 216(H) 70 - 100 mg/dL LAB CHEMISTRY METHOD 09/12/2024 8:05 PM [facility] BUN 31(H) 5 - 25 mg/dL LAB CHEMISTRY METHOD 09/12/2024 8:05 PM [facility] Creatinine 1.87(H) 0.70 - 1.30 mg/dL LAB CHEMISTRY METHOD 09/12/2024 8:05 PM EDT [facility] eGFR 39(L) >=60 mL/min/1. 73m2 LAB CHEMISTRY METHOD 09/12/2024 8:05 PM EDT [facility] Comment:Calculation based on the Chronic Kidney Disease Epidemiology Collaboration (CKD-EPI) equation refit without adjustment for race. BUN/Creatinine Ratio 16.6 LAB CHEMISTRY METHOD 09/12/2024 8:05 PM EDT [facility] Calcium 9.7 8.5 - 10.5 mg/dL LAB CHEMISTRY METHOD 09/12/2024 8:05 PM EDT [facility] Blood Venous blood specimen / Unknown Venipuncture / Unknown 09/12/2024 7:05 PM EDT 09/12/2024 7:34 PM EDT us Paloma Perry MD LAB BLOOD ORDERABLES Fin al Result [facility] [address] [place] [address], from Last 3 Months or Most Recently Relevant to Health Maintenance Insurance [facility] [employer] Member Subscriber Plan / Payer (Ef fective 2024-Present) Name:Brandt Nelson Relation to Subscriber:Self Name:Brandt Nelson Payer ID:[id number] Group ID:Not on file Type:Not on file Address: [address] [place] [id number] Care Teams Tower Climber Relationship Specialty Start Date End Date Annia Tg [address] [facility] [address] [place] [address] PCP - General 01/05/24
--- OUTSIDE RECORDS SUMMARY | 2025-01-31 10:42 | XMS_ITS | Encounter Summary ---
Author Organization [employer] Address [address] [facility] 7 [place] [address] Care Team Providers Care Brood Station Manager Name Role Phone Annia [facility] Primary Care Provider [phone] Elena Nichols PharmD Unavailable [phone] Reason for Visit * Reason Comments Med Refill Encounter Details Date Type Department Care Team ([facility] st Contact Info) Description 07/01/2023 Refill [facility] [address] [place] [address] [facility] [address] [place] [address] Primary osteoarthritis of right knee Social History [...] Description 02/20/2025 1:00 PM EDT Medication Management [facility] [address] [place] [phone] Elena Nichols PharmD [address] [place] [phone] 03/01/2025 2:45 PM EDT Office Visit [facility] [address] [place] [phone] [address] [address] documented as of this encounter Visit Diagnoses Diagnosis Primary osteoarthritis of right knee documented in this encounter Additional Health Concerns Assessment Noted Time PHQ-9 Depression Total Score: 0 11/25/19 23 3:32 PM EDT documented as of this encounter Care Teams Brood Station Manager Relationship Specialty Start Date End Date Tg Milner FNP [address] [place] [phone] PCP - General Family Medicine 04/28/22 Elena Nichols PharmD [address] [place] [phone] Pharmacist Pharmacy 12/13/24 documented as of this encounter
--- OUTSIDE RECORDS SUMMARY | 2025-01-31 10:42 | XMS_ITS | Encounter Summary ---
Author Organization [employer] Address [address] [facility] 7t [place] [address] Care Team Providers Care Sheetmetal Trades Worker Name Role Phone Tg Milner [facility] Primary Care Provider [phone] Elena Nichols PharmD Unavailable [phone] Encounter Details Date Type Department Care Team ([facility] st Contact Info) Description 01/16/2025 Telephone [facility] [address] [place], [place] [phone] [place] [facility] [address] [place] [address] Social History Tobacco Use Types Packs/Day Years Used Date Smoking Tobacco: Former Cigarettes Passive Smoke Exposure: Past Smokeless Tobacco: Never Alcohol Use Standard Drinks/Week Comments Never 0 (1 standard drink = 0.6 oz pur e alcohol) Depression Answer Date Recorded Patient Health Questionnaire-9 Score 0 01/11/2025 Patient Health Questionnaire-9 Score 0 01/11/2025 Last PHQ-9: Questionnaire Data Not on file 0 01/11/2025 Housing Stability Answer Date Recorded What is [...] Date Recorded Patient Health Questionnaire-2 Score 0 01/11/2025 Internet Access Answer Date Recorded Internet Access [...] encounter Miscellaneous Notes * Telephone Encounter - Carolina Perla - 01/16/2025 3:05 PM EDT Tc from pt requesting a call back. 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 Pt stated he forgot about today's appointment. Requesting a call back at [phone] documented in this encounter Plan of Treatment Upcoming Encounters Date Type Department Care Team (Late st Contact Info) Description 02/20/2025 1:00 PM EDT Medication Management [facility] [address] [place] [phone] Elena Nichols, GaleD [address] [place] [address] 03/01/2025 2:45 PM EDT Office Visit [facility] [address] [place] [phone] Tg Milner FNP [address] [place] [address] documented as of this encounter Visit Diagnoses Not on filedocumented in this encounter Additional Health Concerns Assessment Noted Time PHQ-9 Depression Total Score: 0 01/12/20 25 2:08 PM EDT documented as of this encounter Care Teams Sheetmetal Trades Worker Relationship Specialty Start Date End Date Tg Milner FNP [address] [place] [address] PCP - General Family Medicine 04/28/22 Elena Nichols, Navarro [address] [place] [address] Pharmacist Pharmacy 12/13/24 documented as of this encounter
--- OUTSIDE RECORDS SUMMARY | 2025-01-31 10:42 | XMS_ITS | Encounter Summary ---
Author Organization [employer] Address [address] [facility] [address] [place] [address] Care Team Providers Care Mandrel Maker Name Role Phone Tg Milner BUSINESS INTELLIGENCE ENGINEER Primary Care Provider [phone] Elena Nichols PharmD Unavailable [phone] Encounter Details Date Type Department Care Team ([facility] st Contact Info) Description 04/17/2023 Abstract [facility] [address] [place] [address] Addis Hathaway Social History Tobacco Use Types [...] Description 02/20/2025 1:00 PM EDT Medication Management [facility] [address] [place] [phone] Elena Nichols PharmD [address] [place] [phone] 03/01/2025 2:45 PM EDT Office Visit [facility] [address] [place] [address] Tg Milner FNP [address] [place] [address] documented as of this encounter Visit Diagnoses Not on filedocumented in this encounter Additional Health Concerns Assessment Noted Time PHQ-9 Depression Total Score: 0 11/25/19 23 3:32 PM EDT documented as of this encounter Care Teams Mandrel Maker Relationship Specialty Start Date End Date Tg Milner FNP [address] [place] [address] PCP - General Family Medicine 04/28/22 Elena Nichols PharmD [address] [place] [phone] Pharmacist Pharmacy 12/13/24 documented as of this encounter
--- OUTSIDE RECORDS SUMMARY | 2025-01-31 10:43 | XMS_ITS | Encounter Summary ---
Author Organization [employer] [facility] Address [address] [place] [address] [address], [place] [address] Care Team Providers Care Employee Benefits Coordinator Name Role Phone Tg Milner [facility] Primary Care Provider [phone] Elena Nichols PharmD Unavailable [phone] Encounter Details Date Type Department Care Team (Late st Contact Info) Description 07/10/2022 Orders Only [facility] [address] [place] [phone] Chante Mackey LPN Social History Tobacco Use [...] Description 02/20/2025 1:00 PM EDT Medication Management [facility] [address] [place] [phone] Elena Nichols, PharmD [address] [place] [address] 03/01/2025 2:45 PM EDT Office Visit [facility] [address] [place] [address] Annia TgKRISTY [address] [place] [address] documented as of this encounter Visit Diagnoses Not on filedocumented in this encounter Care Teams Employee Benefits Coordinator Relationship Specialty Start Date End Date [place] Tg, FLORAL CLERK [address] [place] [address] PCP - General Family Medicine 04/28/22 Elena Nichols, Navarro [address] [place] [address] Pharmacist Pharmacy 12/13/24 documented as of this encounter
--- OUTSIDE RECORDS SUMMARY | 2025-01-31 10:43 | XMS_ITS | Clinical Summary ---
Author Organization [employer] Address [address] [place] [address] [address] [place] [address] Care Team Providers Care African History Professor Name Role Phone Tg Milner CARE MANAGEMENT SPECIALIST Primary Care Provider [phone] Elena Nichols PharmD Unavailable [phone] Allergies No known active allergies Medications latanoprost (Xalatan) 0.005 % ophthalmic solution PLACE 1 DROP IN EACH EYE EVERY NIGHT 023 Active pravastatin (Pravachol) 40 MG tabletIndications :Mixed hyperlipidemia TAKE 1 TABLET BY MOUTH AT BEDTIME 30 tablet 024 Active amLODIPine (Norvasc) 10 MG tabletIndications :Primary hypertension Take 1 tablet (10 mg) by mouth Once per day. 30 tablet 024 Active Diclofenac Sodium 1 % gelIndications:Ca lcaneal bursitis (heel), right APPLY 2 GRAMS TOPICALLY TO AFFECTED AREA(S) TWICE DAILY 100 g 2 024 Active dulaglutide (Trulicity) 4.5 MG/0.5ML solution pen-injectorIndic ations:Type 2 diabetes mellitus with other circulatory complication, without long-term current use of insulin ([facility]) Inject 4.5 mg under the skin 1 (one) time per week. 4 each 024 Active Aspirin Low Dose 81 MG EC tabletIndications :Primary hypertension TAKE 1 TABLET BY MOUTH EVERY DAY 90 tablet 3 024 Active melatonin 5 MG tabletIndications :Obstructive sleep apnea TAKE 2 TABLETS BY MOUTH EVERY DAY AT BEDTIME NEEDED FOR SLEEP 180 tablet 3 024 Active triamcinolone (Nasacort) 55 MCG/ACT nasal inhaler INSTILL 2 SPRAYS IN EACH NOSTRIL ONCE DAILY IN THE MORNING 16.9 mL Active insulin pen needle 32G x 4 mm miscIndications:T ype 2 diabetes mellitus with stage 3 chronic kidney disease, with long-term current use of insulin, unspecified whether stage 3a or 3b CKD ([facility]) Use as instructed 100 each 12 025 2025 Active spironolactone-hy droCHLOROthiazide (Aldactazide) 25-25 MG tabletIndications :Essential hypertension Take 1 tablet (25 mg) by mouth Once per day. 90 tablet 3 025 2025 Active senna (Senokot) 8.6 MG tabletIndications :Constipation, unspecified constipation type Take 1 tablet (8.6 mg) by mouth at bedtime. 120 tablet Active docusate sodium (Colace) 100 MG capsuleIndication s:Constipation, unspecified constipation type Take 1 capsule (100 mg) by mouth 2 times daily. 60 capsule 11 2025 Active Acetaminophen Extra Strength 500 MG tabletIndications :Pain in right lumbar region of back,Right flank pain TAKE 1 TABLET BY MOUTH EVERY 6 HOURS NEEDED FOR MILD PAIN 30 tablet 2 Active Ascorbic Acid (vitamin C) 1000 MG tablet Take 1,000 mg by mouth Once per day. Active doxazosin (Cardura) 4 MG tablet Take 4 mg by mouth at bedtime. Active finasteride (Proscar) 5 MG tablet Take 5 mg by mouth Once per day. Active methenamine hippurate (Hiprex) 1 g tablet Take 1 g by mouth Once per day. Active metoprolol succinate XL (Toprol-XL) 200 MG 24 hr tabletIndications :Primary hypertension TAKE 1 TABLET BY MOUTH EVERY DAY FOR BLOOD PRESSURE 90 tablet 3 Active Alcohol Swabs (Alcohol Pads) 70 % pads Use as directed 100 each 11 Active gabapentin (Neurontin) 800 MG tabletIndications :Primary osteoarthritis of right knee TAKE 1 TABLET BY MOUTH EVERY 8 HOURS 90 tablet Active Multiple Vitamin (Multivitamin) tablet Take 1 tablet by mouth Once per day. Active empagliflozin-met FORMIN ER (Synjardy XR) 12.5-1000 MG 24 hr tabletIndications :Type 2 diabetes mellitus with stage 3b chronic kidney disease, with long-term current use of insulin ([facility]) Take 2 tablets by mouth with breakfast. 60 tablet 2025 Active glucose blood (FREESTYLE LITE) test stripIndications: Diabetic polyneuropathy associated with type 2 diabetes mellitus ([facility]) Use to test blood sugar up to 3 time(s) daily as needed for CGM failure or rapidly changing BG. 100 strip Active TRUEplus Lancets 33G [facility] Use to test blood sugar up to 3 time(s) daily as needed for CGM failure or rapidly changing BG. 100 each Active insulin glargine (Lantus SoloStar) 100 UNIT/ML penIndications:Ty pe 2 diabetes mellitus with stage 3b chronic kidney disease, with long-term current use of insulin ([facility]) Inject 26 units subcutaneous daily. Increase by 2 units every 2 days if BG >180 mg/dl up to 36 units. 15 mL Active polyethylene glycol, PEG, 3350 (Glycolax) 17 GM/SCOOP powderIndications :Constipation, unspecified TAKE 17 GM MIXED IN 8 OUNCES OF WATER, COFFEE OR TEA ONCE DAILY 238 g 2 Active Continuous Glucose Sensor (Dexcom G7 Sensor) misc 1 each every 10 (ten) days. Apply 1 sensor every 10 days 3 each 2024 polyethylene glycol, PEG, 3350 (Glycolax) 17 GM/SCOOP powder TAKE 17 GM MIXED IN 8 OUNCES OF WATER, COFFEE OR TEA ONCE DAILY 2024 Discontinued Active Problems Problem Noted Date Diagnosed Date Gait instability 10/19/2024 Pain in right lumbar region of back [...] culture 08/31/24 Calcaneal bursitis (heel), right 08/31/2024 Open wound of left great toe 05/19/2024 Assessment & Plan (05/19/2024 11:30 AM EST): Continue taking antibiotics as prescribed Maintain wound dry and clean Wound clinic referral Diabetic polyneuropathy asso ciated with type 2 [...] years Baseline Essential hypertension 06/14/2018 Overview (02/11/2023): Lisinopril 40mg Amlodipine 5mg hydrochlorothiazide 50mg Metoprolol 200mg XR Maintenance: BMP: 08/2022 Lipid [...] Assessment & Plan (02/11/2023 5:40 AM EDT): Well controlled Continue current regimen Peripheral venous insufficiency 06/14/2018 Overview (11/26/2022): Followed by [facility] vascular Compression stockings Pain managed with gabapeentin 800mg t.i.d Followed by [facility] wound care for venous stasis ulcer Assessment & Plan (02/11/2023 5:41 AM EDT): Continue use of compression stockings Follow as scheduled with wound care Nonalcoholic steatohepatitis 01/13/2017 Osteoarthritis involving mul tiple joints on both sides of body 01/13/2017 Obstructive sleep apnea syndrome 06/23/2012 Hyperlipidemia 06/23/2012 Overview (11/26/2022): Simvastatin 20mg daily Unable to tolerate rosuvastatin (chest pain) Assessment & Plan (02/11/2023 5:42 AM EDT): Continue current regimen Repeat fasting lipid panel at follow up Assessment & Plan (11/26/2022 1:45 PM EDT): EKG in office WNL. STOP rosuvastatin Restart simvastatin 20mg daily Type 2 diabetes mellitus wit h circulatory disorder, with long-term current use of insulin 03/15/2012 Overview (01/11/2024): Trulicity Metformin Jardiance Foot Exam: 07/2023--RISK 1 Eye Exam: Through [facility]. UTD Statin: Yes ASA: Yes GISELA/ARB: [...] Component Value Date HGBA1C 6.9 (H) 09/01/2022 Continue current regimen Assessment & Plan (11/26/2022 1:39 PM EDT): Lab Results Component Value Date HGBA1C 6.9 (H) 09/01/2022 Continue current regimen Resolved Problems Problem Noted Date Diagnosed Date Resolved Date Type 2 diabetes mellitus wit h stage 3 chronic kidney disease, with long-term current use of insulin 08/31/2024 10/19/2024 Class 1 obesity due to exces s calories with serious comorbidity and body mass index (BMI) of 34.0 to 34.9 in adult 08/31/2024 10/19/2024 Assessment & Plan (08/31/2024 3:21 PM EDT): [...] saturated fat, and sodium. Exercise counseling 08/31/2024 10/20/19 Assessment & Plan (08/31/2024 3:22 PM EDT): Exercise Recommendations: At least 150 minutes of moderate-intensity physical activity per week, or an equivalent combination of moderate- and vigorous-intensity activity Diabetic foot 05/19/2024 10/19/2024 Productive cough 04/21/2024 10/19/2024 Assessment & Plan (04/21/2024 4:25 PM EST): COVID 19 and Flu are neg here ,reports worsening cough -productive , not improving taking mucinex Noted purulent sputum in back of throat Possible bronchitis -Pxed today guaifenesin -amoxicillin BID x7 days -Alarm signs and symptoms discussed -hydration advised Shortness of breath 08/17/2023 12/10/19 24 Diarrhea 05/15/2022 09/01/2022 Postural dizziness 05/15/2022 3 Clostridium difficile diarrhea 05/17/2019 09/01/2022 Obesity (BMI 30-39.9) 09/30/20182023 Abdominal bloating 06/14/2018 3 Dystrophia unguium 06/14/2018 3 Foot callus 01/27/2018 09/01/2022 Hyperlipidemia associated wi th type 2 diabetes mellitus 01/13/2017 11/26/2022 Tooth disorder 01/13/2017 09/01/2022 Peripheral vascular disease 01/13/2017 11/26/2022 Hypertension 03/15/2012 11/26/2022 Encounters Date Type Department Care Team Description 01/23/2025 Refill [facility] [place] [address] Tg Milner FNP Constipation, unspecified 01/18/2025 Orders Only GENERIC EXTERNAL DATA DEPARTMENT Provider, Generic External Data 01/16/2025 Telephone [facility] [place] [address] Tg Milner FNP 01/12/2025 Telephone [facility] [place] [address] Heidi Silva, RN Care Coordination 01/11/2025 2:00 PM EDT Office Visit [facility] [place] [address] Tg Milner FNP Preoperative clearance (Primary Dx); Type 2 diabetes mellitus with stage 3b chronic kidney disease, with long-term current use of insulin ([facility]); Urinary retention; Right bundle branch block 01/11/2025 Travel 01/10/2025 Telephone [facility] [place] [address] Tg Milner FNP Chart Prep 01/09/2025 Telephone [facility] [place] [address] Tg Milner FNP Pre Op 01/04/2025 Travel 12/28/2024 Telephone [facility] MEDICINE [address] [place] [address] Elena Nichols, Nav[place] 12/27/2024 Travel 12/22/2024 Travel 12/19/[address] [facility] [address] [place] [address] [facility] Primary osteoarthritis of right knee 12/12/2024 Travel 11/23/2024 Refill [facility] [address] [place] [address] [facility] Type 2 diabetes mellitus with stage 3 chronic kidney disease, with long-term current use of insulin, unspecified whether stage 3a or 3b CKD ([facility]) 11/12/2024 Orders Only GENERIC EXTERNAL DATA DEPARTMENT Provider, Generic External Data 11/10/2024 Telephone [facility] MEDICINE [address] [place] [address] [facility] Durable Medical Equipment 11/02/[address] [facility] [address] [place] [address] [facility] Primary osteoarthritis of right knee from Last 3 Months Immunizations Immunization Administration Dates Next Due Pneumococcal Polysaccharide PPSV23 [...] Sign Reading Time Taken Comments Blood Pressure 140/80 01/11/2025 2:06 PM EDT Pulse 60 01/11/2025 2:06 PM EDT Temperature 36.1 C (97 F) 01/11/2025 2:06 PM EDT Respiratory Rate 20 01/11/2025 2:06 PM EDT Oxygen Saturation 98% 08/31/2024 2:28 PM EDT Inhaled Oxygen Concentration - - Weight 103 kg (226 lb) 01/11/2025 2:06 PM EDT Height 177.8 cm (5' 10 ) 01/11/2025 2:06 PM EDT Body Mass Index 32.43 01/11/2025 2:06 PM EDT Plan of Treatment Upcoming Encounters Date Type Department Care Team (Late st Contact Info) Description 02/20/2025 1:00 PM EDT Medication Management [facility] [address] [place] [address] Elena Nichols, PharmD [address] [place], [place] [phone] 03/01/2025 2:45 PM EDT Office Visit [facility] MED[facility]INE [address] [place] [address] [place], Tg, CARE MANAGEMENT SPECIALIST [address] [place] [address] Health Maintenance Due Date Last Done Comments [...] series) 2018 COVID-19 Vaccine ( season) 2024 Diabetes: Foot Exam 11/08/2024 11/09/2023, 11/09/2023, 11/09/2023, Additional history exists Lipid Panel 01/21/2025 01/22/2024, 11/29, 09/01/2022, Additional history exists Influenza Vaccine (#1) 2025 Eye Exam 02/10/2025 02/10/2023, 01/30, 02/10/2023, Additional history exists Diabetes: Hemoglobin A1C 04/13/2025 025, 10/19/2024, 07/22/2024, Additional history exists Alcohol/Substance Use Screening 07/22/2025 07/22/2024 SDOH Screening 07/22/2025 07/22/2024 Depression Screening 01/11/2026 01/11/2025, 01/12/20 25 Tobacco Screening 01/12/2026 01/12/2025 DTaP/Tdap/Td Vaccines (3 - Td or Tdap) [...] Date/Time Associated Diagnosis Comments BASIC METABOLIC PANEL Routine 01/18/2025 2:13 PM EDT CBC Routine 01/18/2025 2:13 PM EDT URINALYSIS, COMPLETE Routine 01/18/2025 2:13 PM EDT ECG 12-LEAD Routine 01/12/2025 9:04 AM EDT Preoperative clearance POCT GLUCOSE Routine 01/11/2025 2:08 PM EDT Type 2 diabetes mellitus with stage 3b chronic kidney disease, with long-term current use of insulin (CMS/HCC) POCT GLYCATED HEMOGLOBIN, TOTAL Routine 01/11/2025 2:07 PM EDT Type 2 diabetes mellitus with stage 3b chronic kidney disease, with long-term current use of insulin (CMS/HCC) URINALYSIS, COMPLETE, WITH REFLEX TO CULTURE Routine 11/12/2024 8:39 PM EDT LIPID PANEL, STANDARD Routine 01/22/2024 10:21 AM EDT Type 2 diabetes mellitus with hyperglycemia, without long-term current use of insulin (CMS/HCC) HEPATITIS C AB W/REFL TO HCV RNA, QN, PCR Routine 09/01/2022 2:59 PM EDT Healthcare maintenance from Last 3 Months or Most Recently Relevant to Health Maintenance Results * (ABNORMAL) Urinalysis Complete (01/18/2025 2:13 PM EDT) Color Urine Yellow [facility] Appearance Urine Turbid [facility] PH 6.0 5.0 - 9.0 [facility] Glucose Urine UA >=1000(A) Negative mg/dL [facility] Urine Blood Moderate (2+)(A) Negative [facility] Specific [place] - Urine >=1.030(H) 1.005 - 1.025 [facility] Urine Protein 30 (1+)(A) Neg-Trace mg/dL [facility] Urine Ketones Negative Negative mg/dL [facility] Nitrite Urine Negative Negative [facility] Leukocyte Esterase Urine Moderate (2+)(A) Negative [facility] RBC Urine 11-20(A) 0 - 2 /HPF [facility] Urine WBC >50(A) 0 - 5 /HPF [facility] Urine Squamous Epithelial Cell 6-10 0 - 2 /HPF [facility] Urine Bacteria 2+ None Seen [facility] Hyaline Casts, Urine 0-2 0 - 2 /LPF [facility] Urine Yeast Present [facility] 01/18/2025 2:13 PM EDT 01/18/2025 5:20 PM EDT us Generic External Data Provider LAB URINE ORDERAB LES Final Result [facility] [address] [place] [phone] [phone] * (ABNORMAL) CBC (01/18/2025 2:13 PM EDT) White Blood Count 7.1 4.8 - 10.8 X10*3/uL [facility] Red Blood Count 4.96 4.60 - 5.80 X10*6/uL [facility] Hemoglobin 13.9(L) 14.0 - 18.0 g/dl [facility] Hematocrit 41.8(L) 42.0 - 52.0 % [facility] Mean Corpuscular Volume 84.3 80.0 - 98.0 fL [facility] Mean Corpuscular Hemoglobin 28.0 27.0 - 33.0 pg [facility] Mean Corpuscular HGB Conc 33.3 31.0 - 36.0 g/dl [facility] Red Cell Distribution Width 13.3 11.0 - 16.0 % [facility] Platelet Count 229 160 - 400 X10*3/uL [facility] Mean Platelet Volume 11.2 9.4 - 12.4 fL [facility] NRBC Pct Auto 0.0 0.0 - 0.2 /100WBC [facility] NRBC Abs Auto 0.000 0.0 - 0.012 X10*3/uL [facility] 01/18/2025 2:13 PM EDT 01/18/2025 5:16 PM EDT us Generic External Data Provider LAB BLOOD ORDERAB LES Final Result [facility] [address] [place] [phone] * (ABNORMAL) Basic Metabolic Panel (01/18/2025 2:13 PM EDT) Sodium 134(L) 135 - 145 mmol/L [facility] Potassium 5.7(H) 3.3 - 5.1 mmol/L [facility] Chloride 99 96 - 108 mmol/L [facility] Carbon Dioxide 23 22 - 29 mmol/L [facility] Anion Gap 18 12 - 20 [facility] Urea Nitrogen (BUN) 33(H) 9 - 16 mg/dL [facility] Creatinine, Serum 1.63(H) 0.5 - 1.4 mg/dL [facility] Estimated Glomerular Filt Rate 43 [facility] Comment:Chronic Kidney Disea se: Estimated GFR < 60 mL/min/1.12g4Zphokg Kidney Disease: Estimated GFR < 15 mL/min/1.73m2 Glucose 389(HH) 60 - 115 mg/dL [facility] Comment:Critical value for t est(s): GLUR Results called to cassikendall back by: SOLA Person calling: GM Date:01.18.25 Time: 1830 Calcium 9.8 8.4 - 10.2 mg/dL [facility] 01/18/2025 2:13 PM EDT 01/18/2025 5:16 PM EDT [facility] External Data Provider LAB BLOOD ORDERAB LES Final Result [facility] [address] [place] [phone] * ECG 12 lead (01/12/2025 9:04 AM EDT) Narrative [place] FNP - 01/12/2025 9:04 AM EDT Sinus rhythm. New partial RBB not present in prior tracing. See scanned report Result [facility] ECG ORDERABLES Final Result * (ABNORMAL) POCT Glucose (01/11/2025 2:08 PM EDT) Pathologist [facility] Glucose Blood, POC 296(A) 60 - 200 mg/dL QC [employer] Lot # [id number] Lot# Expiration Date Blood Capillary blood specimen / Unknown 01/11/2025 2:08 PM EDT [facility] POINT OF CARE TEST ENTER/EDIT ORDERABLES Final Result * (ABNORMAL) POCT HGB A1C (01/11/2025 2:07 PM EDT) Pathologist [facility] Hemoglobin A1C 10.4(A) 4.0 - 5.7 % [employer] Lot # [id number] Lot# Expiration Date Blood 01/11/2025 2:07 PM EDT [facility] CARE MANAGEMENT SPECIALIST POINT OF CARE TEST ENTER/EDIT ORDERABLES Final Result * (ABNORMAL) Urinalysis, Complete, with Reflex to Culture (11/12/2024 8:39 PM EDT) Color Urine Yellow [facility] Appearance Urine Clear [facility] PH 7.5 5.0 - 9.0 [facility] Glucose Urine UA >=1000(A) Negative mg/dL [facility] Urine Blood Trace(A) Negative [facility] Specific [place] - Urine 1.025 1.005 - 1.025 [facility] Urine Protein Negative Neg-Trace mg/dL [facility] Urine Ketones Negative Negative mg/dL [facility] Nitrite Urine Negative Negative [facility] Leukocyte Esterase Urine Moderate (2+)(A) Negative [facility] RBC Urine 0-2 0 - 2 /HPF [facility] Urine WBC >50(A) 0 - 5 /HPF [facility] Urine Squamous Epithelial Cell 0-2 0 - 2 /HPF [facility] Urine Bacteria 4+ None Seen [facility] Hyaline Casts, Urine 0-2 0 - 2 /LPF [facility] 11/12/2024 8:39 PM EDT 11/12/2024 8:44 PM EDT Narrative [facility] - 11/12/2024 8:57 PM EDT Urine, [place] us Generic External Data Provider LAB URINE ORDERAB LES Final Result [facility] [address] [place], [place] [phone] * (ABNORMAL) Lipid Panel, Standard (01/22/2024 10:21 AM EDT) Triglycerides 291(H) <150 mg/dL [facility] Comment:Desirable Triglyceri de: less than 150 mg/dLBorderline High Triglyceride 150-199 mg/dLHigh Triglyceride: 200-499 mg/dLVery High Triglyceride: greater than or equal to 5OO mg/dL Cholesterol 166 <200 mg/dL [facility] Comment:Desirable Cholestero l: less than 200 mg/dLBorderline High Cholesterol: 200-239 mg/dLHigh Cholesterol: greater than 239 mg/dL LDL Cholesterol Calculated 77 <100 mg/dL [facility] Comment:Desirable LDL: less than 100 mg/dLNear Optimal/Above Optimal LDL: 110- 129 mg/dLBorderline High LDL: 130-159 mg/dLHigh LDL: 160-189 mg/dLVery High LDL: greater than or equal to 190 mg/dL HDL Cholesterol 31(L) >40 mg/dL [facility] Comment:Desirable HDL: great er than 40 mg/dL Note: This HDL assay may give artificially low results in patients with liver disease. Blood Venous blood specimen / Unknown 01/22/2024 10:21 AM EDT 01/22/2024 11:05 AM EDT [facility] LAB BLOOD ORDERABLES Final Re sult [facility] [address] [place] [phone] * Hepatitis C Antibody with Reflex to HCV, RNA, Quantitative, Real-Time PCR (09/01/2022 2:59 PM EDT) Hepatitis C Antibody NON-REACT DARY NON-REACT DARY [facility] Index 0.09 <1.00 [facility] Comment: HCV antibody was non-reactive. There is no laboratory evidence of HCV infection. In most cases, no further action is required. However, if recent HCV exposure is suspected, a test for HCV RNA (test code 62920) is suggested. For additional information please refer to http://education.[employer]/faq/BKQ65d4 (This link is being provided for informational/ educational purposes only.) Blood Venous blood specimen / Unknown 09/01/2022 2:59 PM EDT 09/01/2022 2:59 PM EDT [facility] LAB BLOOD ORDERABLES Final Re sult [facility] [address], [place] [phone] [facility] [address] [place] [phone] from Last 3 Months or Most Recently Relevant to Health Maintenance Insurance [facility] USP OPTIONS (HMO D-SNP) [facility] Care Teams African History Professor Relationship Specialty Start Date End Date Tg MilnerKRISTY [address] [place] [id number] PCP - General Family Medicine 04/28/22 Elena Nichols, GaleD [address] [place] [phone] Pharmacist Pharmacy 12/13/24
--- OUTSIDE RECORDS SUMMARY | 2025-01-31 10:43 | XMS_ITS | Encounter Summary ---
Author Organization [employer] Address [address] [place] [address] 7 [place] [address] Care Team Providers Care Chief Deputy Name Role Phone Tg Milner [employer]ODU[employer] MAKER Primary Care Provider [phone] Elena Nichols PharmD Unavailable [phone] Reason for Referral * Consultation (Routine) - Authorized Specialty Diagnoses / Procedures Referred By Contac t Referred To Contact Pharmacy Diagnoses Type 2 diabetes mellitus with other circulatory complication, with long-term current use of insulin (CMS/HCC) Jennifer Quinn MD [address] [place] [address] Phone: tel: fax: Referral ID Status Reason Start Date Expiration Date Visits Requested Visits Authorized [id number] Authorized Consult and Treat 2024 2025 6 6 Encounter Details Date Type Department Care Team (Late st Contact Info) Description 2024 Orders Only [facility] [address] [place] [address] [phone] Jennifer Quinn MD [address] [place] [address] [phone] Type 2 diabetes mellitus with other circulatory complication, with long-term current use of insulin (CMS/HCC) (Primary Dx) Social History Tobacco Use Types Packs/Day Years Used Date Smoking Tobacco: Former Cigarettes Passive Smoke Exposure: Past Smokeless Tobacco: Never Alcohol Use Standard Drinks/Week Comments Never 0 (1 standard drink = 0.6 oz pur e alcohol) Depression Answer Date Recorded Patient Health Questionnaire-9 Score 8 10/19/2024 Patient Health Questionnaire-9 Score 8 10/19/2024 Last PHQ-9: Questionnaire Data Not on file 0 10/19/2024 Housing Stability Answer Date Recorded What is [...] Answer Date Recorded Patient Health Questionnaire-2 Score 2 10/19/2024 Internet Access Answer Date Recorded Internet Access [...] Description 02/20/2025 1:00 PM EDT Medication Management [facility] [address] [place] [address] Elena Nichols, PharmD [address] [place] [address] 03/01/2025 2:45 PM EDT Office Visit [facility] [address] [place] [address] AnniaTg dalal FNP [address] [place] [address] Scheduled Referrals Name Type Priority Associated Diagnoses Orde r Schedule Referral to Pharmacy CDTM Outpatient Referral Routine Type 2 diabetes mellitus with other circulatory complication, with long-term current use of insulin ([facility]) Ordered: 2024 documented as of this encounter Visit Diagnoses Diagnosis Type 2 diabetes mellitus with other circulatory complication, with long-term current use of insulin (CMS/[facility])- Primary documented in this encounter Additional Health Concerns Assessment Noted Time PHQ-9 Depression Total Score: 8 10/20/19 11:47 AM EDT documented as of this encounter Care Teams Chief Deputy Relationship Specialty Start Date End Date Tg Milner FNP [address] [place] [address] PCP - General Family Medicine 04/28/22 Elena Nichols PharmD [address] [place] [address] Pharmacist Pharmacy 12/13/24 documented as of this encounter
--- OUTSIDE RECORDS SUMMARY | 2025-01-31 10:43 | XMS_ITS | Encounter Summary ---
Author Organization [email or web address] [facility] Address [address] [place] [address] Care Team Providers Care Business Unit Leader Name Role Phone [facility] Primary Care Provider [phone] Elena Nichols PharmD Unavailable [phone] Reason for Visit * Reason Comments Med Refill Encounter Details Date Type Department Care Team (Late Contact Info) Description 06/18/2022 Refill [facility] [address] [place] [address] East DoverTg FNP 230 [place] [address] Type 2 diabetes mellitus without complication, without long-term current use of insulin ([facility]) Social History Tobacco Use Types Packs/Day Years [...] Department Care Team (Late Contact Info) Description 02/20/2025 1:00 PM EDT Medication Management [facility] [address] [place] [address] Elena Nichols PharmD 230 [place] [address] 03/01/2025 2:45 PM EDT Office Visit [facility] 230 [place], [place] [phone] Tg Milner [facility] [address] [place] [address] documented as of this encounter Visit Diagnoses Diagnosis Type 2 diabetes mellitus without complication, without long-term current use of insulin ([facility]) documented in this encounter Care Teams Business Unit Leader Relationship Specialty Start Date End Date Tg Milner [facility] 230 [place] [address] PCP - General Family Medicine 04/28/22 Elena Nichols, Navarro [address] [place] [address] Pharmacist Pharmacy 12/13/24 documented as of this encounter
--- OUTSIDE RECORDS SUMMARY | 2025-01-31 10:43 | XMS_ITS | Encounter Summary ---
Author Organization [employer] Address [address] [facility] 7t [place] [address] Care Team Providers Care Safety Net Maker Name Role Phone Tg Milner FINISHING RANGE SUPERVISOR Primary Care Provider [phone] Elena Nichols PharmD Unavailable [phone] Reason for Visit * Reason Comments Med Refill Encounter Details Date Type Department Care Team ([facility] st Contact Info) Description 10/04/2024 Refill [facility] 230 [place] [address] Melisa Jacob MD 230 [place] [address] Pain in right lumbar region of back; [...] is your housing situation today? I have vernalex gee 09/18/[address] you [...] Description 02/20/2025 1:00 PM EDT Medication Management [facility] [address] [place] [address] Elena Nichols PharmD [address] [place] [address] 03/01/2025 2:45 PM EDT Office Visit [facility] [address] [place] [address] Tg Milner FNP [address] [place] [address] documented as of this encounter Visit Diagnoses Diagnosis Pain in right lumbar region of back Right flank pain Abdominal pain, unspecified site documented in this encounter Additional Health Concerns Assessment Noted Time PHQ-9 Depression Total Score: 0 07/22/19 25 10:03 AM EST documented as of this encounter Care Teams Safety Net Maker Relationship Specialty Start Date End Date Tg Milner FNP [address] [place] [address] PCP - General Family Medicine 04/28/22 Elena Nichols PharmD [address] [place] [address] Pharmacist Pharmacy 12/13/24 documented as of this encounter
--- OUTSIDE RECORDS SUMMARY | 2025-01-31 10:43 | XMS_ITS | Encounter Summary ---
Author Organization [employer] [facility] Address [address] [place] [address] [place] [address] Care Team Providers Care Ic Design Engineer Name Role Phone Annia [facility] Primary Care Provider [phone] Elena Nichols PharmD Unavailable [phone] Encounter Details Date Type Department Care Team (Late Contact Info) Description 06/03/[address] [address] Social History Tobacco Use Types Packs/Day Years [...] Description 02/20/2025 1:00 PM EDT Medication Management [facility] [address] [place] [address] Elena Nichols, PharmD [address] [place] [address] 03/01/2025 2:45 PM EDT Office Visit [facility] [address] [place] [address] [address] documented as of this encounter Visit Diagnoses Not on filedocumented in this encounter Care Teams Ic Design Engineer Relationship Specialty Start Date End Date Annia KRISTY Mas [address] [place] [address] PCP - General Family Medicine 04/28/22 Elena Nichols PharmD [address] [place] [address] Pharmacist Pharmacy 12/13/24 documented as of this encounter
--- OUTSIDE RECORDS SUMMARY | 2025-01-31 10:43 | XMS_ITS | Encounter Summary ---
Author Organization [employer] Address [address] [place] [address] 7 [place] [address] Care Team Providers Care Sustainability Consultant Name Role Phone Annia [facility] Primary Care Provider [phone] Elena Nichols PharmD Unavailable [phone] Reason for Visit * Reason Onset Date Comments Medication Question 05/06/2022 new script 05/06/2022 Encounter Details Date Type Department Care Team ([facility] st Contact Info) Description 05/06/2022 Telephone [facility] 230 [place] [address] Iaeger [facility] 230 [place] [address] Medication Question; new script Social History Tobacco [...] be modified. * Telephone Encounter - Abbey Mario - 05/14/2022 1:40 PM EST Tc from pt calling requesting to see if we can send a script for Trulicity. Pt stated pharmacy has on back order Trulicity 4.5mg. Pharmacy has Trulicity .75, 1.5 or 3mg. PCP ESTELLA Iaeger * Telephone Encounter - Nany Azeem - 05/06/2022 2:08 PM EST Tc from pt requesting active medications. Pt will be traveling to [place] as of May 19nd unsure on the exact date that will be returning. Stated will be returning after the new years but has yet to establish a date. PCP BENDER HAND Iaeger documented in this encounter Plan of Treatment Upcoming Encounters Date Type Department Care Team (Late st Contact Info) Description 02/20/2025 1:00 PM EDT Medication Management [facility] [address] [place] [address] Elena Nichols PharmD [address] [place] [address] 03/01/2025 2:45 PM EDT Office Visit [facility] [address] [place] [address] Tg Milner [address] [address] documented as of this encounter Visit Diagnoses Diagnosis Type 2 diabetes mellitus without complication, without long-term current use of insulin ([facility]) documented in this encounter Care Teams Sustainability Consultant Relationship Specialty Start Date End Date Tg Milner FNP [address] [place] [address] PCP - General Family Medicine 04/28/22 Elena Nichols PharmD [address] [place] [address] Pharmacist Pharmacy 12/13/24 documented as of this encounter
--- OUTSIDE RECORDS SUMMARY | 2025-01-31 10:43 | XMS_ITS | Encounter Summary ---
Author Organization [employer] [facility] Address [address] [place] [address] 7 [place] [address] Care Team Providers Care Hot Dog Vender Name Role Phone Annia [facility] Primary Care Provider [phone] Elena Nichols PharmD Unavailable [phone] Reason for Visit * Reason Comments Med Refill Encounter Details Date Type Department Care Team ([facility] Contact Info) Description 12/22/2022 Refill [facility] 230 [place] [address] Tuttle [facility] 230 [place] [address] Primary hypertension Social History Tobacco Use Types [...] Upcoming Encounters Date Type Department Care Team ([facility] Contact Info) Description 02/20/2025 1:00 PM EDT Medication Management [facility] [address] [place] [address] Elena Nichols PharmD [address] [facility] [place] [address] 03/01/2025 2:45 PM EDT Office Visit [facility] [place] [address] Tg Mliner [facility] 230 [place] [address] documented as of this encounter Visit Diagnoses Diagnosis Primary hypertension Unspecified essential hypertension documented in this encounter Additional Health Concerns Assessment Noted Time PHQ-9 Depression Total Score: 0 11/25/19 23 3:32 PM EDT documented as of this encounter Care Teams Hot Dog Vender Relationship Specialty Start Date End Date Tg Milner [facility] [place] [address] PCP - General Family Medicine 04/28/22 Elena Nichols PharmD [address] [place] [address] Pharmacist Pharmacy 12/13/24 documented as of this encounter
== END 2025-01-31 10:35 | disposition home or self-care (01) ==
LOC: HO.HCS 09:38
PROVIDERS: Visit Provider Internal Medicine
DX: Z01.810 Encounter for preprocedural cardiovascular examination (principal); E11.65 Type 2 diabetes mellitus with hyperglycemia; I12.9 Hypertensive chronic kidney disease with stage 1 through stage 4 chronic kidney disease, or unspecified chronic kidney disease; E78.5 Hyperlipidemia, unspecified; E66.09 Other obesity due to excess calories; Z68.34 Body mass index [BMI] 34.0-34.9, adult; N18.9 Chronic kidney disease, unspecified
CPT/HCPCS: 93010; 99204; G2211

== ENCOUNTER → 2025-01-31 09:38 | Outpatient (BNVA) | payer OTHER, SELFPAY | PROVIDERS: Visit Provider Internal Medicine | DX: Z01.810 Encounter for preprocedural cardiovascular examination (principal); E11.65 Type 2 diabetes mellitus with hyperglycemia; I10 Essential (primary) hypertension; E78.5 Hyperlipidemia, unspecified; E66.09 Other obesity due to excess calories; Z68.34 Body mass index [BMI] 34.0-34.9, adult; I25.10 Atherosclerotic heart disease of native coronary artery without angina pectoris | CPT/HCPCS: 93005; 99202 ==

== ENCOUNTER → 2025-02-03 13:01 | Outpatient (BNVA) | payer OTHER, SELFPAY | PROVIDERS: Visit Provider Urology | DX: Z46.6 Encounter for fitting and adjustment of urinary device (principal); R33.9 Retention of urine, unspecified | CPT/HCPCS: 51702 ==

== ENCOUNTER 2025-02-16 15:58 | Outpatient (REF) | payer OTHER, SELFPAY ==
--- NOTE | ~2025-02-16 | XR_ITS ---
EXAMINATION: XR LUMBOSACRAL SPINE CLINICAL INFORMATION: acute low back pain described as 10/10 COMPARISON: None available. TECHNIQUE: Three views of the lumbosacral spine. FINDINGS: Catheter or tubing projects in the midline of the pelvis. Degenerative changes are seen in the SI joints. There is moderate severe narrowing of the right and moderate narrowing on the left with subchondral sclerosis and marginal osteophytes. There are 5 nonrib-bearing lumbar segments. T12-L1 demonstrates mild disc space narrowing and desiccation in the disc. L1-2 demonstrates mild disc space narrowing. L2-3: There is mild disc space narrowing endplate osteophytes and chondrocalcinosis in the disc. L4 demonstrates moderate disc space narrowing with endplate osteophytes L4-5 demonstrates mild disc space narrowing. L5-S1 demonstrates moderate disc space during, vacuum phenomena, subtle retrolisthesis, and facet sclerosis. XR/XR lumbar spine 2-3V IMPRESSION: Multilevel degenerative disc disease, detailed above. Electronically signed by: Adalberto Morel MD 02/16/2025 04:42 PM EDT
--- OUTSIDE RECORDS SUMMARY | 2025-02-16 17:09 | XMS_ITS | Clinical Summary ---
Author Organization [address] [place] [address] Address [address] [place] [address] Phone Care Team Providers Care Retention Manager Name Role Phone [facility] Primary Care Provider [phone] Allergies No known active allergies Medications acetaminophen [...] METHOD 09/12/2024 8:05 PM EDT [facility] Comment:Calculation based on the Chronic Kidney Disease Epidemiology Collaboration (CKD-EPI) equation refit without adjustment for race. BUN/Creatinine Ratio 16.6 LAB CHEMISTRY METHOD 09/12/2024 8:05 PM EDT [facility] Calcium 9.7 8.5 - 10.5 mg/dL LAB CHEMISTRY METHOD 09/12/2024 8:05 PM EDT [facility] Blood Venous blood specimen / Unknown Venipuncture / Unknown 09/12/2024 7:05 PM EDT 09/12/2024 7:34 PM EDT us Paloma Perry MD LAB BLOOD ORDERABLES Fin al Result [facility] [address] [place] [address], from Last 3 Months or Most Recently Relevant to Health Maintenance Insurance [facility] [employer] Member Subscriber Plan / Payer (Ef fective 2024-Present) Name:Brandt Nelson Relation to Subscriber:Self Name:Brandt Nelson Payer ID:[id number] Group ID:Not on file Type:Not on file Address: [address] [place] [id number] Care Teams Retention Manager Relationship Specialty Start Date End Date Annia Tg 230 [facility] 1 [place] [address] PCP - General 01/05/24
[2025-02-16 17:58] LABS: Appearance Urine Turbid; Glucose Urine UA >=1000 mg/dL (Negative); PH 5.5 (5.0-9.0); Specific Gravity - Urine >= 1.030 (1.005-1.025); UMIC TRIGGER UACC YES
[2025-02-16 19:45] LABS: UACC Culture Trigger YES
== END 2025-02-16 15:59 | disposition home or self-care (01) ==
LOC: HO.HHCX 15:58
PROVIDERS: Visit Provider Family Medicine
DX: M54.50 Low back pain, unspecified (principal); R82.90 Unspecified abnormal findings in urine
CPT/HCPCS: 72100; 81001; 87086; 87088; 87147

== ENCOUNTER → 2025-02-16 15:58 | Outpatient (BNV) | payer OTHER, SELFPAY | PROVIDERS: Visit Provider Radiology Diagnostic Radiology | DX: M51.360 Other intervertebral disc degeneration, lumbar region with discogenic back pain only (principal) | CPT/HCPCS: 72100 ==

== ENCOUNTER → 2025-02-27 12:49 | Outpatient (BNVA) | payer OTHER, SELFPAY | PROVIDERS: Visit Provider Urology | DX: Z46.6 Encounter for fitting and adjustment of urinary device (principal); R33.9 Retention of urine, unspecified | CPT/HCPCS: 51705 ==

== ENCOUNTER → 2025-03-01 15:52 | Outpatient (BNV) | payer OTHER, SELFPAY | PROVIDERS: PCP Registered Nurse; Visit Provider Radiology Diagnostic Radiology | DX: L97.529 Non-pressure chronic ulcer of other part of left foot with unspecified severity (principal) | CPT/HCPCS: 73630 ==

== ENCOUNTER → 2025-03-27 07:37 | Outpatient (REF) | payer OTHER, SELFPAY ==
--- OUTSIDE RECORDS SUMMARY | 2025-03-27 07:40 | XMS_ITS | Encounter Summary ---
Author Organization [employer] Address [address] [facility] 7t [place] [address] Care Team Providers Care Firer Retort Name Role Phone Tg Milner [facility] Primary Care Provider [phone] Elena Nichols PharmD Unavailable [phone] Encounter Details Date Type Department Care Team ([facility] st Contact Info) Description 01/16/2025 Telephone [facility] 230 [place], [place] [phone] [place] [facility] 230 [place] [address] Social History Tobacco Use Types Packs/Day Years [...] today's appointment. Requesting a call back at [phone] documented in this encounter Plan of Treatment Upcoming Encounters Date Type Department Care Team (Late st Contact Info) Description 03/27/2025 11:00 AM EDT Telemedicine [facility] 230 [place] [address] Elena Nichols PharmD 230 [place] [address] documented as of this encounter Visit Diagnoses Not on filedocumented in this encounter Additional Health Concerns Assessment Noted Time PHQ-9 Depression Total Score: 0 01/12/20 25 2:08 PM EDT documented as of this encounter Care Teams Firer Retort Relationship Specialty Start Date End Date Tg Milner FNP [address] [place] [address] PCP - General Family Medicine 04/28/22 Elena Nichols PharmD 230 [place] [address] Pharmacist Pharmacy 12/13/24 documented as of this encounter
--- OUTSIDE RECORDS SUMMARY | 2025-03-27 07:40 | XMS_ITS | Encounter Summary ---
Author Organization [employer] [facility] Address [address] [place] [address] Care Team Providers Care Business Solutions Director Name Role Phone Annia [facility] Primary Care Provider [phone] Elena Nichols PharmD Unavailable [phone] Reason for Visit * Reason Comments Med Refill Encounter Details Date Type Department Care Team (Late Contact Info) Description 06/18/2022 Refill [facility] 230 [place] [address] Annia TgKRISTY 230 [place] [address] Type 2 diabetes mellitus without complication, without long-term current use of insulin ([facility]/HCC) Social History Tobacco Use Types Packs/Day Years [...] Info) Description 03/27/2025 11:00 AM EDT Telemedicine [facility] 230 [place], [place] [phone] Elena Nichols PharmD 230 [place] [address] documented as of this encounter Visit Diagnoses Diagnosis Type 2 diabetes mellitus without complication, without long-term current use of insulin ([facility]) documented in this encounter Care Teams Business Solutions Director Relationship Specialty Start Date End Date [place]Tg GEM EXPERT 230 [place] [address] PCP - General Family Medicine 04/28/22 Elena Nichols, GaleD 230 [place] [address] Pharmacist Pharmacy 12/13/24 documented as of this encounter
--- OUTSIDE RECORDS SUMMARY | 2025-03-27 07:40 | XMS_ITS | Encounter Summary ---
Author Organization [employer] Address [address] [facility] [address] 7[address] [place] [address] Care Team Providers Care Patient Biller Name Role Phone Tg Milner COLD ROLLING SUPERVISOR Primary Care Provider [phone] Elena Nichols PharmD Unavailable [phone] Encounter Details Date Type Department Care Team ([facility] st Contact Info) Description 04/17/2023 Abstract [facility] 230 [place] [address] Addis Hathaway Social History Tobacco Use Types [...] Info) Description 03/27/2025 11:00 AM EDT Telemedicine [facility] [address] [place] [address] Elena Nichols, Navarro 230 [place] [address] documented as of this encounter Visit Diagnoses Not on filedocumented in this encounter Additional Health Concerns Assessment Noted Time PHQ-9 Depression Total Score: 0 11/25/19 23 3:32 PM EDT documented as of this encounter Care Teams Patient Biller Relationship Specialty Start Date End Date AnniaTg FNP [address] [place] [address] PCP - General Family Medicine 04/28/22 Elena Nichols, Navarro [address] [place] [address] Pharmacist Pharmacy 12/13/24 documented as of this encounter
--- OUTSIDE RECORDS SUMMARY | 2025-03-27 07:40 | XMS_ITS | Encounter Summary ---
Author Organization [employer] Address [address] [facility] [address] 7t [place] [address] Care Team Providers Care Fiscal Specialist Name Role Phone Annia [facility] Primary Care Provider [phone] Elena Nichols PharmD Unavailable [phone] Encounter Details Date Type Department Care Team ([facility] st Contact Info) Description 02/22/2025 Orders Only [facility] 230 [place] [address] [place] [facility] 230 [place] [address] Dyspepsia (Primary Dx) Social History Tobacco Use Types [...] Info) Description 03/27/2025 11:00 AM EDT Telemedicine [facility] 230 [place] [address] Elena Nichols PharmD 230 [place] [address] documented as of this encounter Visit Diagnoses Diagnosis Dyspepsia- Primary Dyspepsia and other specified disorders of function of stomach documented in this encounter Additional Health Concerns Assessment Noted Time PHQ-9 Depression Total Score: 0 01/12/20 25 2:08 PM EDT documented as of this encounter Care Teams Fiscal Specialist Relationship Specialty Start Date End Date Tg Milner FNP [address] [place] [address] PCP - General Family Medicine 04/28/22 Elena Nichols PharmD [address] [place] [address] Pharmacist Pharmacy 12/13/24 documented as of this encounter
--- OUTSIDE RECORDS SUMMARY | 2025-03-27 07:40 | XMS_ITS | Encounter Summary ---
Author Organization [employer] Address [address] [place] [address] 7 [place] [address] Care Team Providers Care Nike Athlete Name Role Phone Tg Milner SALES AND MARKETING REPRESENTATIVE Primary Care Provider [phone] Elena Nichols PharmD Unavailable [phone] Reason for Referral * Consultation (Routine) - Authorized Specialty Diagnoses / Procedures Referred By Contac t Referred To Contact Pharmacy Diagnoses Type 2 diabetes mellitus with other circulatory complication, with long-term current use of insulin (HCC) Jennifer Quinn MD [address] [place] [address] Phone: tel: fax: Referral ID Status Reason Start Date Expiration Date Visits Requested Visits Authorized [id number] Authorized Consult and Treat 2024 2025 6 6 Encounter Details Date Type Department Care Team ([facility] st Contact Info) Description 2024 Orders Only [facility] [address] [place] [phone] Jennifer Quinn MD [address] [place] [address] [phone] Type 2 diabetes mellitus with other circulatory [...] 03/27/2025 11:00 AM EDT Telemedicine [facility] 230 [place] [address] Elena Nichols, PharmD 230 [place] [address] Scheduled Referrals Name Type Priority Associated Diagnoses Orde r Schedule Referral to Pharmacy CDTM Outpatient Referral Routine Type 2 diabetes mellitus with other circulatory complication, with long-term current use of insulin ([facility]) Ordered: 2024 documented as of this encounter Visit Diagnoses Diagnosis Type 2 diabetes mellitus with other circulatory complication, with long-term current use of insulin (HCC)- Primary documented in this encounter Additional Health Concerns Assessment Noted Time PHQ-9 Depression Total Score: 8 10/20/19 25 11:47 AM EDT documented as of this encounter Care Teams Nike Athlete Relationship Specialty Start Date End Date Tg Milner FNP 230 [place] [address] PCP - General Family Medicine 04/28/22 Elena Nichols PharmD 230 [place] [address] Pharmacist Pharmacy 12/13/24 documented as of this encounter
--- OUTSIDE RECORDS SUMMARY | 2025-03-27 07:40 | XMS_ITS | Encounter Summary ---
Author Organization [employer] Address [address] [facility] 7 [place] [address] Care Team Providers Care Research Worker Encyclopedia Name Role Phone Annia [facility] Primary Care Provider [phone] Elena Nichols PharmD Unavailable [phone] Reason for Visit * Reason Comments Med Refill Encounter Details Date Type Department Care Team ([facility] st Contact Info) Description 07/01/2023 Refill [facility] [address] [place] [address] [facility] [address] [place] [address] Primary osteoarthritis of right knee Social History [...] Info) Description 03/27/2025 11:00 AM EDT Telemedicine [facility] [address] [place] [address] Elena Nichols PharmD [address] [place] [address] documented as of this encounter Visit Diagnoses Diagnosis Primary osteoarthritis of right knee documented in this encounter Additional Health Concerns Assessment Noted Time PHQ-9 Depression Total Score: 0 11/25/19 23 3:32 PM EDT documented as of this encounter Care Teams Research Worker Encyclopedia Relationship Specialty Start Date End Date Tg Milner FNP [address] [place] [address] PCP - General Family Medicine 04/28/22 Elena Nichols PharmD [address] [place] [address] Pharmacist Pharmacy 12/13/24 documented as of this encounter
--- OUTSIDE RECORDS SUMMARY | 2025-03-27 07:40 | XMS_ITS | Encounter Summary ---
Author Organization [employer] [facility] Address [address] [place] [address] [place] [address] Care Team Providers Care Parts Product Analyst Name Role Phone AnniaTg [facility] Primary Care Provider [phone] Elena Nichols PharmD Unavailable [phone] Encounter Details Date Type Department Care Team ([facility] Contact Info) Description 06/03/2022 Telephone [facility] [address] [place] [address] Tg Milner [address] [address] Social History Tobacco Use Types Packs/Day Years [...] Department Care Team (Late Contact Info) Description 03/27/2025 11:00 AM EDT Telemedicine [facility] [address] [place] [address] Elena Nichols, PharmD 230 [place] [address] documented as of this encounter Visit Diagnoses Not on filedocumented in this encounter Care Teams Parts Product Analyst Relationship Specialty Start Date End Date Tg Milner FNP [address] [place] [address] PCP - General Family Medicine 04/28/22 Elena Nichols, PharmD [address] [place] [address] Pharmacist Pharmacy 12/13/24 documented as of this encounter
--- OUTSIDE RECORDS SUMMARY | 2025-03-27 07:40 | XMS_ITS | Encounter Summary ---
Author Organization [employer] Address [address] [facility] 7t [place] [address] Care Team Providers Care Emblem Maker Name Role Phone Tg Milner FORECLOSURE SPECIALIST Primary Care Provider [phone] Elena Nichols PharmD Unavailable [phone] Reason for Visit * Reason Comments Med Refill Encounter Details Date Type Department Care Team ([facility] st Contact Info) Description 10/04/2024 Refill [facility] 230 [place] [address] Melisa Jacob MD 230 [place] [address] Pain in right lumbar region of back; [...] [facility] [address] [place] [address] Elena Nichols PharmD [address] [place] [address] documented as of this encounter Visit Diagnoses Diagnosis Pain in right lumbar region of back Right flank pain Abdominal pain, unspecified site documented in this encounter Additional Health Concerns Assessment Noted Time PHQ-9 Depression Total Score: 0 07/22/19 25 10:03 AM EST documented as of this encounter Care Teams Emblem Maker Relationship Specialty Start Date End Date VenusTg FNP [address] [place] [address] PCP - General Family Medicine 04/28/22 Elena Nichols PharmD [address] [place] [address] Pharmacist Pharmacy 12/13/24 documented as of this encounter
--- OUTSIDE RECORDS SUMMARY | 2025-03-27 07:40 | XMS_ITS | Encounter Summary ---
Author Organization [employer] [facility] Address [address] [place] [address] [place], [place] [address] Care Team Providers Care Sap Gatherer Name Role Phone Tg Milner PLAYGROUND ATTENDANT Primary Care Provider [phone] Elena Nichols PharmD Unavailable [phone] Encounter Details Date Type Department Care Team (Late st Contact Info) Description 07/10/2022 Orders Only [facility] [address] [place] [address] Chante Mackey LPN Social History Tobacco Use [...] Info) Description 03/27/2025 11:00 AM EDT Telemedicine [facility] [address] [place] [address] Elena Nichols PharmD 230 [place] [address] documented as of this encounter Visit Diagnoses Not on filedocumented in this encounter Care Teams Sap Gatherer Relationship Specialty Start Date End Date Tg MilnerKRISTY [address] [place] [address] PCP - General Family Medicine 04/28/22 Elena Nichols PharmD 230 [place] [address] Pharmacist Pharmacy 12/13/24 documented as of this encounter
--- OUTSIDE RECORDS SUMMARY | 2025-03-27 07:40 | XMS_ITS | Encounter Summary ---
Author Organization [employer] [facility] Address [address] [place] [address] Care Team Providers Care Tractor Sweeper Operator Name Role Phone Annia [facility] Primary Care Provider Elena Nichols PharmD Unavailable [phone] Reason for Visit * Reason Comments Med Refill Encounter Details Date Type Department Care Team (Late Contact Info) Description 12/25/[address] [facility] [address] [place] [address] [phone] [place], Tg [facility] [address] [place] [address] Type 2 diabetes mellitus without complication, without long-term current use of insulin ([facility]) Social History Tobacco Use Types Packs/Day Years [...] Info) Description 03/27/2025 11:00 AM EDT Telemedicine [facility] [address] [place] [address] [phone] Elena Nichols, PharmD 230 [place] [address] documented as of this encounter Visit Diagnoses Diagnosis Type 2 diabetes mellitus without complication, without long-term current use of insulin (HCC) documented in this encounter Additional Health Concerns Assessment Noted Time PHQ-9 Depression Total Score: 0 11/25/19 23 3:32 PM EDT documented as of this encounter Care Teams Tractor Sweeper Operator Relationship Specialty Start Date End Date Tg Milner FNP [address] [place] [address] PCP - General Family Medicine 04/28/22 Elena Nichols PharmD [address] [place] [address] Pharmacist Pharmacy 12/13/24 documented as of this encounter
--- OUTSIDE RECORDS SUMMARY | 2025-03-27 07:40 | XMS_ITS | Encounter Summary ---
Author Organization [employer] Address [address] [place] [address] 7 [place] [address] Care Team Providers Care Respiratory Physician Name Role Phone Annia [facility] Primary Care Provider [phone] Elena Nichols PharmD Unavailable [phone] Reason for Visit * Reason Onset Date Comments Medication Question 05/06/2022 new script 05/06/2022 Encounter Details Date Type Department Care Team ([facility] st Contact Info) Description 05/06/2022 Telephone [facility] 230 [place] [address] [facility] [address] [place] [address] Medication Question; new script Social History Tobacco [...] Trulicity .75, 1.5 or 3mg. PCP ESTELLA Milner * Telephone Encounter - Nany Gann - 05/06/2022 2:08 PM EST Tc from pt requesting active medications. Pt will be traveling to [place] as of May 19nd unsure on the exact date that will be returning. Stated will be returning after the new years but has yet to establish a date. PCP MOLD YARD SUPERVISOR Annia documented in this encounter Plan of Treatment Upcoming Encounters Date Type Department Care Team (Late st Contact Info) Description 03/27/2025 11:00 AM EDT Telemedicine [facility] [address] [place] [phone] Elena Nichols PharmD [address] [place] [address] documented as of this encounter Visit Diagnoses Diagnosis Type 2 diabetes mellitus without complication, without long-term current use of insulin (HCC) documented in this encounter Care Teams Respiratory Physician Relationship Specialty Start Date End Date Tg Milner FNP [address] [place] [address] PCP - General Family Medicine 04/28/22 Elena Nichols, Navarro [address] [place] [address] Pharmacist Pharmacy 12/13/24 documented as of this encounter
--- OUTSIDE RECORDS SUMMARY | 2025-03-27 07:40 | XMS_ITS | Encounter Summary ---
Author Organization [employer] Address [address] [facility] 7t [place] [address] Care Team Providers Care Insurance Legal Assistant Name Role Phone Annia [facility] Primary Care Provider Elena Nichols PharmD Unavailable [phone] Reason for Visit * Reason Comments Med Refill Encounter Details Date Type Department Care Team ([facility] Contact Info) Description 08/31/2024 Refill [facility] 230 [place], [place] [phone] [facility] [address] [place] [address] Primary hypertension Social History Tobacco Use Types [...] Info) Description 03/27/2025 11:00 AM EDT Telemedicine [facility] [address] [place] [address] Elena Nichols PharmD [address] [place] [address] documented as of this encounter Visit Diagnoses Diagnosis Primary hypertension Unspecified essential hypertension documented in this encounter Additional Health Concerns Assessment Noted Time PHQ-9 Depression Total Score: 0 07/22/19 25 10:03 AM EST documented as of this encounter Care Teams Insurance Legal Assistant Relationship Specialty Start Date End Date AtwoodTg FNP [address] [place] [address] PCP - General Family Medicine 04/28/22 Elena Nichols PharmD [address] [place] [address] Pharmacist Pharmacy 12/13/24 documented as of this encounter
--- OUTSIDE RECORDS SUMMARY | 2025-03-27 07:40 | XMS_ITS | Encounter Summary ---
Author Organization [employer] Address [address] [place] [address] 7 [place] [address] Care Team Providers Care Commercial Loan Analyst Name Role Phone Annia [facility] Primary Care Provider [phone] Elena Nichols PharmD Unavailable [phone] Reason for Visit * Reason Comments Med Refill Encounter Details Date Type Department Care Team ([facility] Contact Info) Description 12/22/2022 Refill [facility] [address] [place] [address] [facility] [address] [place] [address] Primary hypertension Social History Tobacco Use Types [...] Upcoming Encounters Date Type Department Care Team ([facility] Contact Info) Description 03/27/2025 11:00 AM EDT Telemedicine [facility] MED[facility] [address] [place] [address] Elena Nichols, Navarro [address] [place] [address] documented as of this encounter Visit Diagnoses Diagnosis Primary hypertension Unspecified essential hypertension documented in this encounter Additional Health Concerns Assessment Noted Time PHQ-9 Depression Total Score: 0 11/25/19 23 3:32 PM EDT documented as of this encounter Care Teams Commercial Loan Analyst Relationship Specialty Start Date End Date Tg Milner FNP [address] [place] [address] PCP - General Family Medicine 04/28/22 Elena Nichols, Navarro [address] [place] [address] Pharmacist Pharmacy 12/13/24 documented as of this encounter
--- OUTSIDE RECORDS SUMMARY | 2025-03-27 07:40 | XMS_ITS | Encounter Summary ---
Author Organization [employer] Address [address] [facility] 7t [place] [address] Care Team Providers Care M1 Armor Crewman Name Role Phone Tg Milner ENGINEERING [employer]LES Primary Care Provider [phone] Elena Nichols PharmD Unavailable Encounter Details Date Type Department Care Team ([facility] st Contact Info) Description 03/24/2025 Telephone [facility] 230 [place] [address] Elena Nichols, PharmD [address] [place] [address] Social History Tobacco Use Types Packs/Day Years [...] encounter Miscellaneous Notes * Telephone Encounter - Elena Nichols PharmD - 03/24/2025 10:42 AM EDT Images from the original note were not included. Pharmacy Brief Encounter - Insulin Titration Pharmacist: Navarro Monroe Cade Whaley is a 64 y.o. year old patient here for CDTM - Diabetes completed over the phone. Pharmacotherapy: Synjardy XR 12.09/999 mg 2 tabs daily Mounjaro 5 mg weekly Lantus 10 units Summary of previous encounter(s): Recently restarted Lantus after discontinuing due to fear of hypoglycemia Today's Visit: Affirms using 10 units as restarted. Denies hypolgycemia. Dexcom report shows hyperglycemia with FBG = 203 mg/dL @ 6am average for the 3 days since CDTM visit (and using 10 units) Plan: Patient would benefit from ongoing basal insulin titration. As FBG >180 mg/dL, increase basal insulin by 20%. Sent new Rx for Lantus 12 units daily Follow up in CDTM - Diabetes in 3 days for ongoing insulin titration. Continue to titrate lantus and Mounjaro until Fasting BG at goal. Revisit Mounjaro increase in 3 weeks (around Apr 11) to allow patient more time to acclimate to 5 mg. documented in this encounter Plan of Treatment Upcoming Encounters Date Type Department Care Team (Late st Contact Info) Description 03/27/2025 11:00 AM EDT Telemedicine [facility] 230 [place] [address] Elena Nichols PharmD [address] [place] [address] documented as of this encounter Visit Diagnoses Diagnosis Type 2 diabetes mellitus with stage 3b chronic kidney disease, with long-term current use of insulin (HCC) documented in this encounter Additional Health Concerns Assessment Noted Time PHQ-9 Depression Total Score: 0 01/12/20 25 2:08 PM EDT documented as of this encounter Care Teams M1 Armor Crewman Relationship Specialty Start Date End Date RosemontTg FNP [address] [place] [address] PCP - General Family Medicine 04/28/22 Elena Nichols PharmD [address] [place] [id number] Pharmacist Pharmacy 12/13/24 documented as of this encounter
--- OUTSIDE RECORDS SUMMARY | 2025-03-27 07:40 | XMS_ITS | Clinical Summary ---
Author Organization [employer] Address [address] [facility] [address] [place] [address] Care Team Providers Care Plate Filler Name Role Phone Tg Milner STOREPERSON Primary Care Provider [phone] Elena Nichols PharmD Unavailable [phone] Allergies No known active allergies Medications latanoprost (Xalatan) 0.005 % ophthalmic solution PLACE 1 DROP IN EACH EYE EVERY NIGHT 023 Active Aspirin Low Dose 81 MG EC [...] MORNING 16.9 mL 11 025 Active insulin pen needle 32G x 4 mm miscIndications:T ype 2 diabetes mellitus with stage 3 chronic kidney disease, with long-term current use of insulin, unspecified whether stage 3a or 3b CKD (HCC) Use as instructed 100 each 12 025 2025 Active spironolactone-hy droCHLOROthiazide (Aldactazide) 25-25 MG tabletIndications :Essential hypertension Take 1 tablet (25 mg) by mouth Once per day. 90 tablet 3 025 2025 Active docusate sodium (Colace) 100 MG capsuleIndication s:Constipation, unspecified constipation type Take 1 capsule (100 mg) by mouth 2 times daily. 60 capsule 11 025 2025 Active doxazosin (Cardura) 4 MG tablet Take [...] Use as directed 100 each 11 Active Multiple Vitamin (Multivitamin) tablet Take 1 tablet by mouth Once per day. Active empagliflozin-met FORMIN ER (Synjardy XR) 12.5-1000 MG 24 hr tabletIndications :Type 2 diabetes mellitus with stage 3b chronic kidney disease, with long-term current use of insulin (HCC) Take 2 tablets by mouth with breakfast. 60 tablet 11 2025 Active glucose blood (FREESTYLE LITE) test stripIndications: Diabetic polyneuropathy associated with type 2 diabetes mellitus (HCC) Use to test blood sugar up to 3 time(s) daily as needed for CGM failure or rapidly changing BG. 100 strip Active TRUEplus Lancets 33G misc Use to test blood sugar up to 3 time(s) daily as needed for CGM failure or rapidly changing BG. 100 each Active polyethylene glycol, PEG, 3350 (Glycolax) 17 GM/SCOOP powderIndications :Constipation, unspecified TAKE 17 GM MIXED IN 8 OUNCES OF WATER, COFFEE OR TEA ONCE DAILY 238 g 2 Active gabapentin (Neurontin) 800 MG tabletIndications :Primary osteoarthritis of right knee TAKE 1 TABLET BY MOUTH EVERY 8 HOURS 90 tablet Active Acetaminophen Extra Strength 500 MG tabletIndications :Pain in right lumbar region of back,Right flank pain TAKE 1 TABLET BY MOUTH EVERY 6 HOURS NEEDED FOR MILD PAIN 30 tablet 2 Active Diclofenac Sodium 1 % gelIndications:Ac alejandra midline low back pain without sciatica Apply topically tid prn pain 50 g 1 09/18/2 025 Active cyclobenzaprine (Flexeril) 10 MG tabletIndications :Acute midline low back pain without sciatica One tab po at bedtime prn pain of muscles, do not drive with medicaion 30 tablet 025 Active amLODIPine (Norvasc) 10 MG tabletIndications :Primary hypertension Take 1 tablet (10 mg) by mouth Once per day. 90 tablet 3 025 2025 Active Tirzepatide (Mounjaro) 5 MG/0.5ML solution auto-injectorIndi cations:Type 2 diabetes mellitus with stage 3b chronic kidney disease, with long-term current use of insulin ([facility]) Inject 5 mg under the skin 1 (one) time per week. 2 mL 11 Active Continuous Glucose Sensor (Dex[employer] G7 Sensor) [facility] APPLY 1 Sensor AND CHANGE EVERY 10 DAYS 025 Active Perla-dominguez 8.6 MG tabletIndications :Constipation, unspecified constipation type TAKE 1 TABLET BY MOUTH AT BEDTIME 30 tablet 3 025 Active Ascorbic Acid (vitamin C) 500 MG tablet take 2 tablets by mouth once daily in the morning Active glucose 4 g chewable tablet Chew 4 tablets (16 g) if needed for low blood sugar. <70 mg/dL. Recheck BG after 15 mins and repeat treatment as needed & as directed. 20 tablet 1 025 2025 Active pravastatin (Pravachol) 40 MG tabletIndications :Mixed hyperlipidemia Take 1 tablet (40 mg) by mouth at bedtime. 90 tablet 3 025 Active insulin glargine (Lantus SoloStar) 100 UNIT/ML penIndications:Ty pe 2 diabetes mellitus with stage 3b chronic kidney disease, with long-term current use of insulin ([facility]) Inject 12 units subcutaneous daily 15 mL 11 025 Active senna (Senokot) 8.6 MG tabletIndications :Constipation, unspecified constipation type Take 1 tablet (8.6 mg) by mouth at bedtime. 120 tablet 025 2024 Discontinued Ascorbic Acid (vitamin C) 1000 MG tablet Take 1,000 mg by mouth Once per day. 025 2024 Discontinued(M ed list cleanup (will not trigger notification to Pharmacy)) pravastatin (Pravachol) 40 MG tabletIndications :Mixed hyperlipidemia Take 1 tablet (40 mg) by mouth at bedtime. 30 tablet 11 025 2024 Discontinued(R eorder (will not trigger notification to Pharmacy)) insulin glargine (Lantus SoloStar) 100 UNIT/ML penIndications:Ty pe 2 diabetes mellitus with stage 3b chronic kidney disease, with long-term current use of insulin ([facility]) Inject 36 units subcutaneous daily 15 mL 11 025 2024 Discontinued(R eorder (will not trigger notification to Pharmacy)) meclizine (Antivert) 25 MG tablet Take 1 tablet (25 mg) by mouth if needed in the morning, at noon, and at bedtime for dizziness or nausea for up to 10 days. 30 tablet 025 2024 glucose 4 g chewable tablet Chew 4 tablets (16 g) if needed for low blood sugar. <70 mg/dL. Recheck BG after 15 mins and repeat treatment as needed & as directed. 20 tablet 1 025 2024 Discontinued insulin glargine (Lantus SoloStar) 100 UNIT/ML penIndications:Ty pe 2 diabetes mellitus with stage 3b chronic kidney disease, with long-term current use of insulin ([facility]) Inject 10 units subcutaneous daily 15 mL 025 2024 Discontinued insulin glargine (Lantus SoloStar) 100 UNIT/ML penIndications:Ty pe 2 diabetes mellitus with stage 3b chronic kidney disease, with long-term current use of insulin ([facility]) Inject 10 units subcutaneous daily 15 mL 025 2024 Discontinued(R eorder (will not trigger notification to Pharmacy)) Active Problems Problem Noted Date Diagnosed Date Vertigo 02/27/2025 Assessment & Plan (02/27/2025 5:37 PM EDT): Orders: Referral to Physical Therapy; Future Chronic ulcer of great toe of left foot ([facility]/HCC ) 02/27/2025 Assessment & Plan (02/27/2025 5:37 PM EDT): Orders: Referral to Wound Clinic; Future Gait instability 10/19/2024 Pain in right lumbar [...] venous insufficiency 06/14/2018 Overview (11/26/2022): Followed by [facility] Compression stockings Pain managed with gabapeentin 800mg t.i.d Followed by [facility] wound care for venous stasis ulcer Assessment [...] Foot Exam: 07/2023--RISK 1 Eye Exam: Through [facility]. UTD Statin: Yes ASA: Yes [...] -hydration advised Shortness of breath 08/17/2023 12/10/19 Diarrhea 05/15/2022 09/01/2022 Postural dizziness 05/15/2022 3 Clostridium difficile diarrhea 05/17/2019 09/01/2022 Obesity (BMI 30-39.9) 09/30/20182023 Abdominal bloating 06/14/2018 3 Dystrophia unguium 06/14/2018 3 Foot callus 01/27/2018 09/01/2022 Hyperlipidemia associated wi th type 2 diabetes mellitus 01/13/2017 11/26/2022 Tooth disorder 01/13/2017 09/01/2022 Peripheral vascular disease 01/13/2017 11/26/2022 Hypertension 03/15/2012 11/26/2022 Encounters Date Type Department Care Team Description 03/24/2025 Telephone [facility] MED[facility] [address] [place] [address] Elena Nichols PharmD 03/24/2025 Travel 03/21/2025 3:00 PM EDT Telemedicine [facility] [address] [place] [address] Elena Nichols PharmD Diabetic polyneuropathy associated with type 2 diabetes mellitus (HCC) (Primary Dx); Type 2 diabetes mellitus with stage 3b chronic kidney disease, with long-term current use of insulin (HCC); Mixed hyperlipidemia 03/15/2025 Refill [facility] [address] [place] [address] Annia, Tg, STOREPERSON Constipation, unspecified constipation type 03/01/2025 Orders Only [facility] External Provider, [facility] 02/27/2025 4:00 PM EDT Office Visit [facility] [address] [place] [address] Ingrid Lynn NP Vertigo (Primary Dx); Chronic ulcer of great toe of left foot, unspecified ulcer stage (CMS/[facility]) 02/27/2025 Telephone [facility] [address] [place] [address] Tg Milner FNP Nurse Triage 02/27/2025 Travel 02/24/2025 Telephone [facility] [address] [place] [address] Tg Milner FNP Provider out 03/0102/22/2025 Orders Only [facility] [address] [place] [address] Tg Milner FNP Dyspepsia (Primary Dx) 02/20/2025 Travel 02/16/2025 4:00 PM EDT Office Visit [facility] [address] [place] [address] Melisa Jacob MD Acute midline low back pain without sciatica (Primary Dx) 02/16/2025 Orders Only [facility] [address] [place] [phone] Melisa Jacob MD 02/16/2025 Refill [facility] [address] [place] [address] Tg Milner FNP Gastroesophageal reflux disease, unspecified whether esophagitis present 02/16/2025 Travel 02/08/2025 Refill [facility] [address] [place], [place] [phone] Tg Milner FNP Mixed hyperlipidemia 02/06/2025 Refill [facility] MED[facility] [address] [place] [address] Tg Milner FNP Type 2 diabetes mellitus with other circulatory complication, without long-term current use of insulin (CMS/[facility]) 02/01/2025 Refill [facility] [address] [place] [address] Tg Milner FNP Pain in right lumbar region of back; Right flank pain 01/31/2025 Refill [facility] [address] [facility] [place] [address] Tg Milner FNP Primary osteoarthritis of right knee 01/23/2025 Refill [facility] [address] [place] [address] Annia KRISTY Mas Constipation, unspecified 01/18/2025 Orders Only GENERIC EXTERNAL DATA DEPARTMENT Provider, Generic External Data 01/16/2025 Telephone [facility] [address] [place] [address] [place] 01/12/[address] [address] Heidi Silva, LANA Care Coordination 01/11/2025 2:00 PM EDT Office Visit [address] [address] Tg Milner FNP Preoperative clearance (Primary Dx); Type 2 diabetes mellitus with stage 3b chronic kidney disease, with long-term current use of insulin ([facility]); Urinary retention; Right bundle branch block 01/11/2025 Travel 01/10/2025 Telephone [facility] [address] [place] [address] Tg Milner FNP Chart Prep 01/09/[address] [address] [place] Pre Op 01/04/2025 Travel 12/28/[address] [address] Elena Nichols, PharmD 12/27/2024 Travel from Last 3 Months Immunizations Immunization Administration [...] Sign Reading Time Taken Comments Blood Pressure 113/67 02/27/2025 3:49 PM EDT Pulse 69 02/27/2025 3:49 PM EDT Temperature 36.7 C (98 F) 02/27/2025 3:49 PM EDT Respiratory Rate 18 02/27/2025 3:49 PM EDT Oxygen Saturation 97% 02/27/2025 3:49 PM EDT Inhaled Oxygen Concentration - - Weight 95.1 kg (209 lb 9.6 oz) 02/27/2025 3:49 P M EDT Height 177.8 cm (5' 10 ) 01/11/2025 2:06 PM EDT Body Mass Index 30.07 01/11/2025 2:06 PM EDT Plan of Treatment Upcoming Encounters Date Type Department Care Team (Late st Contact Info) Description 03/27/2025 11:00 AM EDT Telemedicine [facility] MEDICINE [address] [place] [address] Elena Nichols, PharmD [address] [place], [place] [phone] Health Maintenance Due Date Last Done Comments [...] - Risk 60-74 years 1-dose series) 2018 Diabetes: Foot Exam 11/08/2024 11/09/2023, 11/09/2023, 11/09/2023, Additional history exists Lipid Panel 01/21/2025 01/22/2024, 11/29, 09/01/2022, Additional history exists COVID-19 Vaccine ( season) 2025 Influenza Vaccine (#1) 2025 Eye Exam 02/10/2025 02/10/2023, 01/30, 02/10/2023, Additional history exists Diabetes: Hemoglobin A1C 04/13/2025 025, 10/19/2024, 07/22/2024, Additional history exists Alcohol/Substance Use Screening 07/22/2025 07/22/2024 SDOH Screening 07/22/2025 07/22/2024 Depression Screening 01/11/2026 01/11/2025, 01/12/20 25 Tobacco Screening 02/16/2026 02/16/2025 DTaP/Tdap/Td Vaccines (3 - Td or Tdap) [...] Name Priority Date/Time Associated Diagnosis Comments XR FOOT 3+ VIEWS LEFT Routine 03/01/2025 4:08 PM EDT CULTURE, URINE, ROUTINE Routine 02/16/2025 8:38 PM EDT XR LUMBAR SPINE 2-3 VIEWS Routine 02/16/2025 4:14 PM EDT Acute midline low back pain without sciatica URINALYSIS, COMPLETE, WITH REFLEX TO CULTURE Routine 02/16/2025 4:00 PM EDT Acute midline low back pain without sciatica BASIC METABOLIC PANEL Routine 01/18/2025 2:13 PM [...] with long-term current use of insulin (CMS/HCC) LIPID PANEL, STANDARD Routine 01/22/2024 10:21 AM EDT Type 2 diabetes mellitus with hyperglycemia, without long-term current use of insulin (CMS/HCC) HEPATITIS C AB W/REFL TO HCV RNA, QN, PCR Routine 09/01/2022 2:59 PM EDT Healthcare maintenance from Last 3 Months or Most Recently Relevant to Health Maintenance Results * XR Foot 3+ Views Left (03/01/2025 4:08 PM EDT) Anatomical Region Laterality Modality Lower Extremities, Foot Left [facility] 03/01/2025 4:08 PM EDT Narrative 03/02/2025 8:25 AM EDT [facility] [address] [place] [id number] XRay Report Signed Patient: Brandt Nelson MR#: [id number] : 1960 Acct:[id number] Age/Sex: 64 / M ADM Date: 03/01/25 Loc: .[facility] Attending Dr: Moira Issa MD Ordering Physician: Moira Issa MD Date of Service: 03/01/25 Procedure(s): XR foot LT min 3V Accession Number(s): [id number] cc: Moira Issa MD; [facility] Reason for Exam: NON HEALING WOUND EXAMINATION: XR FOOT, LEFT CLINICAL INFORMATION: NON HEALING WOUND COMPARISON: 05/17/2024. TECHNIQUE: AP, lateral, and oblique views of the left foot. FINDINGS: No fracture, dislocation, or suspicious bone lesion. No focal region of osteopenia or permeative bone change to suggest radiographic changes of osteomyelitis. Joint space is grossly maintained. Alignment is normal. Normal plantar arch. Moderate sized plantar and dorsal calcaneal spurs. Soft tissue swelling of the hallux with a questionable soft tissue defect on the medial plantar surface. No subcutaneous emphysema or foreign body seen. Diffuse vascular calcifications seen. XR/XR foot LT min 3V IMPRESSION: 1. No radiographic evidence of osteomyelitis. No acute bony findings. Electronically signed by: Les Muro MD 03/02/2025 08:22 AM EDT RP Workstation: [id number] Dictated By: Les Muro MD Signed By: <Electronically signed by Les Muro MD in OV> 03/02/25821 DD/ 1608 TD/TT: 03/01/25 1610 Casing In Line Feeder: Procedure Note Donotuseinterpreter, Image - 03/02/2025 [facility] [address] [place] [id number] XRay Report Signed Patient: Brandt Nelson#: [id number] : 9Acct:[id number] Age/Sex: 64 / MADM Date: 03/01/25 Loc: [facility] Attending Dr: Moira Issa MD Ordering Physician: Moira Issa MD Date of Service: 03/01/25 Procedure(s): XR foot LT min 3V Accession Number(s): [id number] cc: Moira Issa MD; [facility] Reason for Exam: NON HEALING WOUND EXAMINATION: XR FOOT, LEFT CLINICAL INFORMATION: NON HEALING WOUND COMPARISON: 05/17/2024. TECHNIQUE: AP, lateral, and oblique views of the left foot. FINDINGS: No fracture, dislocation, or suspicious bone lesion. No focal region of osteopenia or permeative bone change to suggest radiographic changes of osteomyelitis. Joint space is grossly maintained. Alignment is normal. Normal plantar arch. Moderate sized plantar and dorsal calcaneal spurs. Soft tissue swelling of the hallux with a questionable soft tissue defect on the medial plantar surface. No subcutaneous emphysema or foreign body seen. Diffuse vascular calcifications seen. XR/XR foot LT min 3V IMPRESSION: 1. No radiographic evidence of osteomyelitis. No acute bony findings. Electronically signed by: Les Muro MD 03/02/2025 08:22 AM EDT RP Workstation: [id number] Dictated By: Les Muro MD Signed By: <Electronically signed by Les Muro MD in OV> 03/02/25 0822 DD/ 1608 TD/TT: 03/01/25 1610 Casing In Line Feeder: [facility] External Provider IMG XR PROCEDURES Edited Result - Final * Culture, Urine, Routine (02/16/2025 8:38 PM EDT) Urine Urine specimen obtained by clean catch procedure / Unknown 02/16/2025 8:38 PM EDT 02/16/2025 8:38 PM EDT Comment:UACC Narrative [facility] - 02/20/2025 9:37 AM EDT Strep agalactiae (Grp B) Quant 50,000 to 100,000 cfu/mL Susc N/A Susceptibility not routinely performed on this isolate. Viviana albicans Quant 10,000 to 50,000 cfu/mL Specimen Source: Urine clean catch Melisa Jacob MD LAB MICROBIOLOGY - GENERAL ORDERABLES Final Result Performing Organization Address City/State/[facility] Co de Phone Number [facility] [address] [place] [phone] * XR Lumbar Spine 2-3 Views (02/16/2025 4:14 PM EDT) Anatomical Region Laterality Modality Spine, L-spine Radiographic Cheryl ging 02/16/2025 4:14 PM EDT Narrative 02/16/2025 4:45 PM EDT [address] [address] XRay Report Signed Patient: Brandt Nelson MR#: [id number] : 1960 Acct:[id number] Age/Sex: 64 / M ADM Date: 02/16/25 Loc: [facility] Attending Dr: Melisa Jacob MD Ordering Physician: Melisa Jacob MD Date of Service: 02/16/25 Procedure(s): XR lumbar spine 2-3V Accession Number(s): [id number] cc: Melisa Jacob MD Reason for Exam: acute low back pain described as 03/10 EXAMINATION: XR LUMBOSACRAL SPINE CLINICAL INFORMATION: acute low back pain described as 03/10 COMPARISON: None available. TECHNIQUE: Three views of the lumbosacral spine. FINDINGS: Catheter or tubing projects in the midline of the pelvis. Degenerative changes are seen in the SI joints. There is moderate severe narrowing of the right and moderate narrowing on the left with subchondral sclerosis and marginal osteophytes. There are 5 nonrib-bearing lumbar segments. T12-L1 demonstrates mild disc space narrowing and desiccation in the disc. L1-2 demonstrates mild disc space narrowing. L2-3: There is mild disc space narrowing endplate osteophytes and chondrocalcinosis in the disc. L4 demonstrates moderate disc space narrowing with endplate osteophytes L4-5 demonstrates mild disc space narrowing. L5-S1 demonstrates moderate disc space during, vacuum phenomena, subtle retrolisthesis, and facet sclerosis. XR/XR lumbar spine 2-3V IMPRESSION: Multilevel degenerative disc disease, detailed above. Electronically signed by: Adalberto Morel MD 02/16/2025 04:42 PM EDT RP Dictated By: Adalberto Morel MD Signed By: <Electronically signed by Adalberto Morel MD in OV> 02/16/25 1642 DD/ 1614 TD/TT: 02/16/25 1615 Casing In Line Feeder: Procedure Note Donotuseinterpreter, Image - 02/16/[address] [address] XRay Report Signed Patient: Brandt NelsonMR#: MM [id number] : 9Acct:[id number] Age/Sex: 64 / MADM Date: 02/16/25 Loc: HO.[facility]X Attending Dr: Melisa Jacob MD Ordering Physician: Melisa Jacob MD Date of Service: 02/16/25 Procedure(s): XR lumbar spine 2-3V Accession Number(s): [id number] cc: Melisa Jacob MD Reason for Exam: acute low back pain described as 03/10 EXAMINATION: XR LUMBOSACRAL SPINE CLINICAL INFORMATION: acute low back pain described as 03/10 COMPARISON: None available. TECHNIQUE: Three views of the lumbosacral spine. FINDINGS: Catheter or tubing projects in the midline of the pelvis. Degenerative changes are seen in the SI joints. There is moderate severe narrowing of the right and moderate narrowing on the left with subchondral sclerosis and marginal osteophytes. There are 5 nonrib-bearing lumbar segments. T12-L1 demonstrates mild disc space narrowing and desiccation in the disc. L1-2 demonstrates mild disc space narrowing. L2-3: There is mild disc space narrowing endplate osteophytes and chondrocalcinosis in the disc. L4 demonstrates moderate disc space narrowing with endplate osteophytes L4-5 demonstrates mild disc space narrowing. L5-S1 demonstrates moderate disc space during, vacuum phenomena, subtle retrolisthesis, and facet sclerosis. XR/XR lumbar spine 2-3V IMPRESSION: Multilevel degenerative disc disease, detailed above. Electronically signed by: Adalberto Morel MD 02/16/2025 04:42 PM EDT Dictated By: Adalberto Morel MD Signed By: <Electronically signed by Adalberto Morel MD in OV> 02/16/25 1642 DD/ 1614 TD/TT: 02/16/25 1615 Casing In Line Feeder: us Melisa Jacob MD IMG XR PROCEDURES Final Re sult * (ABNORMAL) Urinalysis, Complete, with Reflex to Culture (02/16/2025 4:00 PM EDT) Color Urine Yellow [facility] Appearance Urine Turbid [facility] PH 5.5 5.0 - 9.0 [facility] Glucose Urine UA >=1000(A) Negative mg/dL [facility] Urine Blood Moderate (2+)(A) Negative [facility] Specific [place] - Urine >=1.030(H) 1.005 - 1.025 [facility] Urine Protein 30 (1+)(A) Neg-Trace mg/dL [facility] Urine Ketones Negative Negative mg/dL [facility] Nitrite Urine Negative Negative [facility] Leukocyte Esterase Urine Moderate (2+)(A) Negative [facility] RBC Urine 3-5(A) 0 - 2 /HPF [facility] Urine WBC 21-50 0 - 5 /HPF [facility] WBC CLUMPS, UR Present [facility] Urine Squamous Epithelial Cell 0-2 0 - 2 /HPF [facility] Urine Bacteria 1+ None Seen [facility] Hyaline Casts, Urine 0-2 0 - 2 /LPF [facility] Urine Yeast Present [facility] Urine 02/16/2025 4:00 PM EDT 02/16/2025 5:26 PM EDT Narrative [facility] - 02/16/2025 7:45 PM EDT Urine, Clean Catch Melisa Jacob MD LAB URINE ORDERABLES Final Result Performing Organization Address City/State/[facility] Co de Phone Number [facility] [address] [place] [address] [phone] * (ABNORMAL) Urinalysis Complete (01/18/2025 2:13 PM EDT) Color Urine Yellow [facility] Appearance Urine Turbid [facility] PH 6.0 5.0 - 9.0 [facility] Glucose Urine UA >=1000(A) Negative mg/dL [facility] Urine Blood Moderate (2+)(A) Negative [facility] Specific [place] - Urine >=1.030(H) 1.005 - 1.025 [facility] Urine Protein 30 (1+)(A) Neg-Trace mg/dL [facility] Urine Ketones Negative Negative mg/dL [facility] Nitrite Urine Negative Negative [facility] Leukocyte Esterase Urine Moderate (2+)(A) Negative [facility] RBC Urine 11-20(A) 0 - 2 /HPF [facility] Urine WBC >50(A) 0 - 5 /HPF [facility] Urine Squamous Epithelial Cell 6-10 0 - 2 /HPF [facility] Urine Bacteria 2+ None Seen [facility] Hyaline Casts, Urine 0-2 0 - 2 /LPF [facility] Urine Yeast Present [facility] 01/18/2025 2:13 PM EDT 01/18/2025 5:20 PM EDT us Generic External Data Provider LAB URINE ORDERAB LES Final Result [facility] [address] [place], [place] [phone] * (ABNORMAL) CBC (01/18/2025 2:13 PM EDT) White Blood Count 7.1 4.8 - 10.8 X10*3/uL [facility] Red Blood Count 4.96 4.60 - 5.80 X10*6/uL [facility] Hemoglobin 13.9(L) 14.0 - 18.0 g/dl [facility] Hematocrit 41.8(L) 42.0 - 52.0 % [facility] Mean Corpuscular Volume 84.3 80.0 - 98.0 fL [facility] Mean Corpuscular Hemoglobin 28.0 27.0 - 33.0 pg [facility] Mean Corpuscular HGB Conc 33.3 31.0 - 36.0 g/dl [facility] Red Cell Distribution Width 13.3 11.0 - 16.0 % [facility] Platelet Count 229 160 - 400 X10*3/uL [facility] Mean Platelet Volume 11.2 9.4 - 12.4 fL [facility] NRBC Pct Auto 0.0 0.0 - 0.2 /100WBC [facility] NRBC Abs Auto 0.000 0.0 - 0.012 X10*3/uL [facility] 01/18/2025 2:13 PM EDT 01/18/2025 5:16 PM EDT us Generic External Data Provider LAB BLOOD ORDERAB LES Final Result Performing Organization Address [facility]/ZIP Co de Phone Number [facility] [address] [place] [address] [phone] * (ABNORMAL) Basic Metabolic Panel (01/18/2025 2:13 PM EDT) Sodium 134(L) 135 - 145 mmol/L [facility] Potassium 5.7(H) 3.3 - 5.1 mmol/L [facility] Chloride 99 96 - 108 mmol/L [facility] Carbon Dioxide 23 22 - 29 mmol/L [facility] Anion Gap 18 12 - 20 [facility] Urea Nitrogen (BUN) 33(H) 9 - 16 mg/dL [facility] Creatinine, Serum 1.63(H) 0.5 - 1.4 mg/dL [facility] Estimated Glomerular Filt Rate 43 [facility] Comment:Chronic Kidney Disea se: Estimated GFR < 60 mL/min/[id number] Kidney Disease: Estimated GFR < 15 mL/min/1.73m2 Glucose 389(HH) 60 - 115 mg/dL [facility] Comment:Critical value for t est(s): GLUR Results called to nati back by: SOLA Person calling: GM Date:01.18.25 Time: 1830 Calcium 9.8 8.4 - 10.2 mg/dL [facility] 01/18/2025 2:13 PM EDT 01/18/2025 5:16 PM EDT us Generic External Data Provider LAB BLOOD ORDERAB LES Final Result Performing Organization Address [facility]/ZIP Co de Phone Number [facility] [address] [place] [address] [phone] * ECG 12 lead (01/12/2025 9:04 AM EDT) Narrative Tg Milner FNP - 01/12/2025 9:04 AM EDT Sinus rhythm. New partial RBB not present in prior tracing. See scanned report [facility] ECG ORDERABLES Final Result * (ABNORMAL) POCT Glucose (01/11/2025 2:08 PM EDT) [facility] Glucose Blood, POC 296(A) 60 - 200 mg/dL QC Media Lot # [id number] Lot# Expiration Date Blood Capillary blood specimen / Unknown 01/11/2025 2:08 PM EDT [facility] POINT OF CARE TEST ENTER/EDIT ORDERABLES Final Result * (ABNORMAL) POCT HGB A1C (01/11/2025 2:07 PM EDT) [facility] Hemoglobin A1C 10.4(A) 4.0 - 5.7 % QC Media Lot # [id number] Lot# Expiration Date Blood 01/11/2025 2:07 PM EDT [facility] POINT OF CARE TEST ENTER/EDIT ORDERABLES Final Result * (ABNORMAL) Lipid Panel, Standard (01/22/2024 10:21 AM EDT) [facility] Triglycerides 291(H) <150 mg/dL [facility] Comment:Desirable Triglyceri de: less than 150 mg/dLBorderline High Triglyceride 150-199 mg/dLHigh Triglyceride: 200-499 mg/dLVery High Triglyceride: greater than or equal to 5OO mg/dL Cholesterol 166 <200 mg/dL [facility] Comment:Desirable Cholestero l: less than 200 mg/dLBorderline High Cholesterol: 200-239 mg/dLHigh Cholesterol: greater than 239 mg/dL LDL Cholesterol Calculated 77 <100 mg/dL [facility] Comment:Desirable LDL: less than 100 mg/dLNear Optimal/Above Optimal LDL: 110- 129 mg/dLBorderline High LDL: 130-159 mg/dLHigh LDL: 160-189 mg/dLVery High LDL: greater than or equal to 190 mg/dL HDL Cholesterol 31(L) >40 mg/dL [facility] Comment:Desirable HDL: great er than 40 mg/dL Note: This HDL assay may give artificially low results in patients with liver disease. Blood Venous blood specimen / Unknown 01/22/2024 10:21 AM EDT 01/22/2024 11:05 AM EDT [facility] LAB BLOOD ORDERABLES Final Re sult [facility] [address] [place] [address] [phone] * Hepatitis C Antibody with Reflex to HCV, RNA, Quantitative, Real-Time PCR (09/01/2022 2:59 PM EDT) Hepatitis C Antibody NON-REACT DARY NON-REACT DARY [employer] Index 0.09 <1.00 [employer] Comment: HCV antibody was non-reactive. There is no laboratory evidence of HCV infection. In most cases, no further action is required. However, if recent HCV exposure is suspected, a test for HCV RNA (test code 38102) is suggested. For additional information please refer to http://education.EaglEyeMed/faq/YFU30o4 (This link is being provided for informational/ educational purposes only.) Blood Venous blood specimen / Unknown 09/01/2022 2:59 PM EDT 09/01/2022 2:59 PM EDT [facility] LAB BLOOD ORDERABLES Final Re sult [facility] [address], [place] [address] [employer] [place] [employer] [address] [place] [address] from Last 3 Months or Most Recently Relevant to Health Maintenance Insurance [facility] USP OPTIONS (HMO D-SNP) [facility] Care Teams Plate Filler Relationship Specialty Start Date End Date [place] FNP [address] [place] [address] PCP - General Family Medicine 04/28/22 Elena Nichols PharmD [address] [place] [address] Pharmacist Pharmacy 12/13/24
--- OUTSIDE RECORDS SUMMARY | 2025-03-27 07:40 | XMS_ITS | Encounter Summary ---
Author Organization [employer] Address [address] [facility] 7t [place] [address] Care Team Providers Care Sociology Professor Name Role Phone Tg Milner RANGER AIDE Primary Care Provider [phone] Elena Nichols PharmD Unavailable [phone] Encounter Details Date Type Department Care Team (Latest Contact Info) Description 03/24/2025 Travel Social History Tobacco Use Types Packs/Day [...] Info) Description 03/27/2025 11:00 AM EDT Telemedicine [facility] [address] [place] [address] Elena Nichols PharmD [address] [place] [address] documented as of this encounter Visit Diagnoses Not on filedocumented in this encounter Additional Health Concerns Assessment Noted Time PHQ-9 Depression Total Score: 0 01/12/20 2:08 PM EDT documented as of this encounter Care Teams Sociology Professor Relationship Specialty Start Date End Date Tg Milner FNP [address] [place] [address] PCP - General Family Medicine 04/28/22 Elena Nichols PharmD [address] [place] [address] Pharmacist Pharmacy 12/13/24 documented as of this encounter
--- OUTSIDE RECORDS SUMMARY | 2025-03-27 07:40 | XMS_ITS | Encounter Summary ---
Author Organization [employer] Address [address] [facility] 7 [place] [address] Care Team Providers Care Reservoir Engineer Name Role Phone [facility] Primary Care Provider [phone] Elena Nichols PharmD Unavailable [phone] Reason for Visit * Reason Comments Med Refill Encounter Details Date Type Department Care Team ([facility] Contact Info) Description 02/16/2025 Refill [facility] [address] [place], [place] [phone] [facility] [address] [place] [address] Gastroesophageal reflux disease, unspecified whether esophagitis present Social History Tobacco Use Types Packs/Day Years [...] Info) Description 03/27/2025 11:00 AM EDT Telemedicine [facility] MED[facility] [address] [place] [address] Elena Nichols, GaleD [address] [place] [address] documented as of this encounter Visit Diagnoses Diagnosis Gastroesophageal reflux disease, unspecified whether esophagitis present documented in this encounter Additional Health Concerns Assessment Noted Time PHQ-9 Depression Total Score: 0 01/12/20 25 2:08 PM EDT documented as of this encounter Care Teams Reservoir Engineer Relationship Specialty Start Date End Date Tg Milner FNP [address] [place] [address] PCP - General Family Medicine 04/28/22 Elena Nichols, Navarro [address] [place] [address] Pharmacist Pharmacy 12/13/24 documented as of this encounter
--- OUTSIDE RECORDS SUMMARY | 2025-03-27 07:40 | XMS_ITS | Clinical Summary ---
Author Organization [address] [place] [address] Address [address] [place] [address] Phone Care Team Providers Care Paid Internship Name Role Phone [facility] Primary Care Provider [phone] Allergies No known active allergies Medications acetaminophen [...] Health Maintenance Due Date Last Done Comments Colorectal Cancer Screening: Colonoscopy 1960 Diabetes: Annual Foot Exam 1968 Diabetes: Annual Retina Eye Exam 1968 Hepatitis A Vaccines (1 of 2 - Risk 2-dose series) 1977 RSV Immunization Adult Patients (1 - Risk 50-74 years 1-dose series) 2008 Zoster Vaccines (1 of 2) 2008 Pneumococcal Vaccine: 50+ Years (2 of 2 - PCV) 09/03/2010 09/03/2009 Hepatitis B Vaccines (1 of 3 - Risk 3-dose series) 2018 Abdominal Aortic Aneurysm (AAA) Screen 05/04/2022 Medicare Annual Wellness Visit 05/04/2022 Social [...] mmol/L LAB CHEMISTRY METHOD 09/12/2024 8:05 PM [facility] Potassium 4.3 3.5 - 5.5 mmol/L LAB CHEMISTRY METHOD 09/12/2024 8:05 PM [facility] Chloride 100 96 - 110 mmol/L LAB CHEMISTRY METHOD 09/12/2024 8:05 PM [facility] CO2 25 21 - 32 mmol/L LAB CHEMISTRY METHOD 09/12/2024 8:05 PM [facility] Anion Gap 7 3 - 11 LAB CHEMISTRY METHOD 09/12/2024 8:05 PM [facility] Glucose 216(H) 70 - 100 mg/dL LAB CHEMISTRY METHOD 09/12/2024 8:05 PM [facility] BUN 31(H) 5 - 25 mg/dL LAB CHEMISTRY METHOD 09/12/2024 8:05 PM [facility] Creatinine 1.87(H) 0.70 - 1.30 mg/dL LAB CHEMISTRY METHOD 09/12/2024 8:05 PM EDT [facility] eGFR 39(L) >=60 mL/min/1. 73m2 LAB CHEMISTRY METHOD 09/12/2024 8:05 PM EDT [facility] ([facility]) [facility] Comment:Calculation based on the Chronic Kidney Disease Epidemiology Collaboration (CKD-EPI) equation refit without adjustment for race. BUN/Creatinine Ratio 16.6 LAB CHEMISTRY METHOD 09/12/2024 8:05 PM EDT [facility] Calcium 9.7 8.5 - 10.5 mg/dL LAB CHEMISTRY METHOD 09/12/2024 8:05 PM EDT [facility] Blood Venous blood specimen / Unknown Venipuncture / Unknown 09/12/2024 7:05 PM EDT 09/12/2024 7:34 PM EDT us Paloma Perry MD LAB BLOOD ORDERABLES Fin al Result [facility] ([facility]) [facility] [address] [place] [address], from Last 3 Months or Most Recently Relevant to Health Maintenance Insurance [facility] [employer] OPTIONS Member Subscriber Plan / Payer (Ef fective 2024-Present) Name:Brandt Nelson Relation to Subscriber:Self Name:Brandt Nelson Payer ID:[id number] Group ID:Not on file Type:Not on file Address: [address] [place] [address] Care Teams Paid Internship Relationship Specialty Start Date End Date Annia Tg [address] [facility] 1 [place] [address] PCP - General 01/05/24
--- NOTE | 2025-03-27 07:41 | CA_ITS ---
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 Study Quality: Adequate ECG Rhythm: Sinus Conclusions: - The left ventricular systolic function is normal. The calculated ejection fraction is 65% by biplane method. - There is mild calcification of the aortic valve. Findings Left Ventricle Normal left ventricular cavity size. The left ventricular systolic function is normal. The calculated ejection fraction is 65% by biplane method. There is no evidence of regional wall motion abnormalities. Diastolic function is normal for age. There is mild septal asymmetric hypertrophy. Right Ventricle Normal right ventricular cavity size and systolic function. Atria Both atria are normal in size. Aortic Valve There is a normal trileaflet aortic valve. There is mild calcification of the aortic valve. There is no aortic valve stenosis. There is no aortic valve regurgitation. Mitral Valve The mitral valve appears normal. There is no mitral valve regurgitation. There is no mitral valve stenosis. Pulmonic Valve The pulmonic valve is likely normal. Tricuspid Valve Normal tricuspid valve structure. There is trace tricuspid valve regurgitation. There is no evidence of pulmonary hypertension. Great Vessels The asc aorta is normal in size. Venous The inferior vena cava is normal in size and collapses greater than 50% with inspiration. Pericardium/Pleural There is no evidence of pericardial effusion. Prior Study Comparison No prior study available for comparison. Measurements 2D Linear Measurements IVSd: 1.27 0.6-0.9/0.6-1.0 cm LVIDd: 5.06 3.9-5.3/4.2-5.9 cm LVIDd Index: 2.41 2.4-3.2/2.2-3.1 cm/m2 LVIDs: 3.07 2.0-3.6 cm LVPWd: 0.88 0.7-1.1 cm LA Diam: 3.10 2.7-3.8/3.0-4.0 cm LAIDs Index: 1.48 1.5-2.3 cm/m2 LV Mass: 254.57 67-162/88-224 g LV Mass Index: 121.23 43-95/49-115 g/m2 LVOT Diam: 2.00 3.0+(-)1.3 cm 2D Systolic Function EF 4C: 61.00 >55% EF 2C: 64.10 >55% EF BiP: 64.90 >55% Mitral Valve MV Pk E: 0.79 MV PK A: 0.89 MV Decel Time: 266.00 E/A: 0.90 E'Lateral: 7.07 E'Medial: 5.55 E/E' Med: 14.30 E/E' Lat: 11.20 PHT: 78.00 MVA PHT: 2.82 Decel [place]: 2.99 Aortic Valve AoV Pk Juliano: 1.78 AoV Mn Juliano: 1.32 AoV VTI: 0.38 AoV Pk Grad: 13.00 Aov Mn Grad: 8.00 ALBER Cont.VTI: 2.21 LVOT LVOT Pk Juliano: 1.34 LVOT Mn Juliano: 0.89 LVOT VTI: 0.27 LVOT Pk Grad: 7.00 LVOT Mn Grad: 4.00 LVOT Diam: 2.00 LVOT Area: 3.14 Diastolic Function MV Pk E: 0.79 MV Pk A: 0.89 E/A: 0.90 E'Medial: 5.55 E/E' Med: 14.30 E' Laterial: 7.07 E/E' Lat: 11.20 Right Ventricle TAPSE (mm): 21.90 TVS' Juliano: 10.80 Tricuspid Valve TR Pk Juliano: 2.61 TR Pk Grad: 27.00 RA Press: 3.00 RVSP: 30.00 Great Vessels Aorta Sinus of Valsalva: 3.60 2.0-3.5 cm Ao Asc: 3.50 2.1-3.4 cm Pulmonary Veins Pulm Vein S/D 1.00 Pulmonary Valve PV Pk Juliano: 0.80 Peak PV Grad: 3.00 Updated in Other Vendor System with Status of Final Daren Ellis MD electronically signed on 03/27/2025 1:11:40 PM with status of Final
== END ==
LOC: HO.CARD 07:37
PROVIDERS: PCP Registered Nurse; Visit Provider Internal Medicine
DX: Z01.810 Encounter for preprocedural cardiovascular examination (principal); I25.10 Atherosclerotic heart disease of native coronary artery without angina pectoris
CPT/HCPCS: 93306

== ENCOUNTER → 2025-03-27 07:41 | Outpatient (BNV) | payer OTHER, SELFPAY | PROVIDERS: PCP Registered Nurse; Visit Provider Internal Medicine | DX: I42.2 Other hypertrophic cardiomyopathy (principal); I35.8 Other nonrheumatic aortic valve disorders | CPT/HCPCS: 93306 ==

== ENCOUNTER 2025-03-31 14:00 | Outpatient (RCR) | payer OTHER, SELFPAY ==
[2025-03-21 11:12] VITALS: BP 110/56; PULSE 69
== END 2025-05-02 11:46 | disposition home or self-care (01) ==
LOC: HO.PT 14:00
PROVIDERS: PCP Registered Nurse; Visit Provider Nurse Practitioner Family
DX: R42 Dizziness and giddiness (principal)
CPT/HCPCS: 95992; 97112; 97161

== ENCOUNTER 2025-04-02 13:23 | Emergency (ER) | payer OTHER, SELFPAY ==
--- NOTE | ~2025-04-02 | CT_ITS ---
CLINICAL HISTORY: ?fragments of burst bo ballon in bladder hematu CT abdomen and pelvis without contrast Comparison: CT/SR - CT ABDOMEN PELVIS W IV CON - 09/01/24 21:07 EDT Findings: No consolidation or effusion. Unremarkable gallbladder and solid organs. No urolithiasis. Mild bilateral perinephric stranding. No bowel obstruction, pneumoperitoneum, or pneumatosis. Moderate circumferential wall thickening of the urinary bladder with small amount of free air. Radiopaque material is noted within the urinary bladder. Moderate surrounding soft tissues stranding is present. Normal appendix. The bones are intact. IMPRESSION: Moderate circumferential wall thickening of the urinary bladder with surrounding soft tissue stranding, concerning for cystitis. Moderate amount of free air within the urinary bladder, likely represent recent catheterization versus emphysematous cystitis. Mild bilateral perinephric stranding concerning for ascending urinary tract infection. Correlate clinically. No radiopaque material is seen within the urinary bladder. This document has been electronically signed by: Sony Cardenas MD on 04/02/2025 20:05:21
[2025-04-02 13:42] VITALS: BP 142/74; PULSE 72; O2SAT 97
[2025-04-02 13:47] VITALS: BP 114/71; PULSE 84; RESP 16; TEMP 36.3; O2SAT 96; BMI 28.8
--- OUTSIDE RECORDS SUMMARY | 2025-04-02 15:55 | XMS_ITS | Clinical Summary ---
Author Organization [address] [place] [address] Address [address] [place] [address] Phone Care Team Providers Care Automatic Riveting Machine Operator Name Role Phone [facility] Primary Care Provider [phone] Allergies No known active allergies Medications acetaminophen [...] 8:05 PM EDT [facility] Comment:Calculation based on the Chronic Kidney Disease Epidemiology Collaboration (CKD-EPI) equation refit without adjustment for race. BUN/Creatinine Ratio 16.6 LAB CHEMISTRY METHOD 09/12/2024 8:05 PM EDT [facility] Calcium 9.7 8.5 - 10.5 mg/dL LAB CHEMISTRY METHOD 09/12/2024 8:05 PM EDT [facility]) [facility] Blood Venous blood specimen / Unknown Venipuncture / Unknown 09/12/2024 7:05 PM EDT 09/12/2024 7:34 PM EDT us Paloma Perry MD LAB BLOOD ORDERABLES Fin al Result [facility] [address] [place] [address], from Last 3 Months or Most Recently Relevant to Health Maintenance Insurance [facility] [employer] OPTIONS Member Subscriber Plan / Payer (Ef fective 2024-Present) Name:Brandt Nelson Relation to Subscriber:Self Name:Brandt Nelson Payer ID:[id number] Group ID:Not on file Type:Not on file Address: [address] [place] [address] Care Teams Automatic Riveting Machine Operator Relationship Specialty Start Date End Date Annia Tg [address] [facility] 1 [place] [address] PCP - General 01/05/24
--- OUTSIDE RECORDS SUMMARY | 2025-04-02 15:55 | XMS_ITS | Encounter Summary ---
Author Organization [facility] [facility] Address [address] [place] [address] [place], [place] [address] Care Team Providers Care Supervisor Extrusion Name Role Phone Tg Milner [facility] Primary Care Provider [phone] Elena Nichols PharmD Unavailable [phone] Encounter Details Date Type Department Care Team (Late st Contact Info) Description 06/03/2022 Telephone [facility] [address] [place] [address] Tg Milner [facility] [address] [place] [address] Social History Tobacco Use Types Packs/Day Years Used Date Smoking Tobacco: Never Assessed Sex and Gender Information Value Date Recorded Sex Assigned at Male 03/31/2022 10:20 AM EDT Legal Sex Male 10:20 AM EDT Gender Identity Male 03/31/2022 10:20 AM EDT Sexual Orientation Straight 03/31/2022 10 :20 AM EDT documented as of this encounter Plan of Treatment Not on file documented as of this encounter Visit Diagnoses Not on filedocumented in this encounter Care Teams Supervisor Extrusion Relationship Specialty Start Date End Date Tg MilnerKRISTY [address] [place] [address] PCP - General Family Medicine 04/28/22 Elena Nichols, GaleD [address] [place] [address] Pharmacist Pharmacy 12/13/24 documented as of this encounter
--- OUTSIDE RECORDS SUMMARY | 2025-04-02 15:55 | XMS_ITS | Encounter Summary ---
Author Organization [employer] [facility] Address [address] [place] [address] 7 [place] [address] Care Team Providers Care It Security Consulting Director Name Role Phone Tg Milner [employer]AD[employer] Primary Care Provider [phone] Elena Nichols PharmD Unavailable [phone] Encounter Details Date Type Department Care Team (Late st Contact Info) Description 07/10/2022 Orders Only [facility] MEDICINE [address] [place] [address] Chante Mackey LPN Social History Tobacco Use [...] on filedocumented in this encounter Care Teams It Security Consulting Director Relationship Specialty Start Date End Date Tg MilnerKRISTY [address] [place] [address] PCP - General Family Medicine 04/28/22 Elena Nichols, PharmD [address] [place] [address] Pharmacist Pharmacy 12/13/24 documented as of this encounter
--- OUTSIDE RECORDS SUMMARY | 2025-04-02 15:55 | XMS_ITS | Encounter Summary ---
Author Organization [employer] Address [address] [place] [address] 7 [place] [address] Care Team Providers Care Advertising Traffic Manager Name Role Phone Tg Milner HOME CHILD CARE PROVIDER Primary Care Provider Elena Nichols PharmD Unavailable [phone] Reason for Referral * Consultation (Routine) - Authorized Specialty Diagnoses / Procedures Referred By Contac t Referred To Contact Pharmacy Diagnoses Type 2 diabetes mellitus with other circulatory complication, with long-term current use of insulin (HCC) Jennifer Quinn MD [address] [place] [phone] Phone: tel: fax: Referral ID Status Reason Start Date Expiration Date Visits Requested Visits Authorized [id number] Authorized Consult and Treat 2024 2025 6 6 Encounter Details Date Type Department Care Team ([facility] st Contact Info) Description [address] [facility] [address] [place] [phone] Jennifer Quinn MD [address] [place] [address] [phone] Type 2 diabetes mellitus with other circulatory [...] as of this encounter Plan of Treatment Scheduled Referrals Name Type Priority Associated Diagnoses Orde r Schedule Referral to Pharmacy CDTM Outpatient Referral Routine Type 2 diabetes mellitus with other circulatory complication, with long-term current use of insulin ([facility]) Ordered: 2024 documented as of this encounter Visit Diagnoses Diagnosis Type 2 diabetes mellitus with other circulatory complication, with long-term current use of insulin ([facility])- Primary documented in this encounter Additional Health Concerns Assessment Noted Time PHQ-9 Depression Total Score: 8 10/20/19 25 11:47 AM EDT documented as of this encounter Care Teams Advertising Traffic Manager Relationship Specialty Start Date End Date Tg Milner FNP [address] [place] [address] PCP - General Family Medicine 04/28/22 Elena Nichols, PharmD [address] [place] [address] Pharmacist Pharmacy 12/13/24 documented as of this encounter
--- OUTSIDE RECORDS SUMMARY | 2025-04-02 15:55 | XMS_ITS | Encounter Summary ---
Author Organization [employer] Address 75 [facility] 7 [place] [address] Care Team Providers Care Guitar Maker Name Role Phone [facility] Primary Care Provider [phone] Elena Nichols PharmD Unavailable [phone] Reason for Visit * Reason Comments Med Refill Encounter Details Date Type Department Care Team ([facility] Contact Info) Description 02/16/2025 Refill [facility] [address] [place], [place] [phone] [facility] 230 [place] [address] Gastroesophageal reflux disease, unspecified whether esophagitis present [...] documented as of this encounter Care Teams Guitar Maker Relationship Specialty Start Date End Date Tg Milner FNP [address] [place] [address] PCP - General Family Medicine 04/28/22 Elena Nichols PharmD [address] [place] [address] Pharmacist Pharmacy 12/13/24 documented as of this encounter
--- OUTSIDE RECORDS SUMMARY | 2025-04-02 15:55 | XMS_ITS | Encounter Summary ---
Author Organization [employer] Address [address] [place] [address] 7 [place] [address] Care Team Providers Care Rn Teacher Name Role Phone Annia [facility] Primary Care Provider [phone] Elena Nichols PharmD Unavailable [phone] Reason for Visit * Reason Onset Date Comments Medication Question 05/06/2022 new script 05/06/2022 Encounter Details Date Type Department Care Team ([facility] st Contact Info) Description 05/06/2022 Telephone [facility] [address] [place] [address] [facility] [address] [place] [address] Medication Question; new script Social History Tobacco [...] ESTELLA Milner * Telephone Encounter - Nany Azeem - 05/06/2022 2:08 PM EST Tc from pt requesting active medications. Pt will be traveling to [place] as of May 19nd unsure on the exact date that will be returning. Stated will be returning after the new years but has yet to establish a date. PCP ESTELLA Milner documented in this encounter Plan of Treatment Not on file documented as of this encounter Visit Diagnoses Diagnosis Type 2 diabetes mellitus without complication, without long-term current use of insulin (HCC) documented in this encounter Care Teams Rn Teacher Relationship Specialty Start Date End Date Tg Milner FNP [address] [place] [address] PCP - General Family Medicine 04/28/22 Elena Nichols PharmD [address] [place] [address] Pharmacist Pharmacy 12/13/24 documented as of this encounter
--- OUTSIDE RECORDS SUMMARY | 2025-04-02 15:55 | XMS_ITS | Encounter Summary ---
Author Organization [employer] Address [address] [facility] 7t [place] [address] Care Team Providers Care Student Records Specialist Name Role Phone Tg Milner PLANNING ASSOCIATE Primary Care Provider [phone] Elena Nichols PharmD Unavailable [phone] Reason for Visit * Reason Comments Med Refill Encounter Details Date Type Department Care Team ([facility] st Contact Info) Description 10/04/2024 Refill [facility] [address] [place] [address] Melisa Jacob MD [address] [place] [address] Pain in right lumbar region of back; [...] as of this encounter Care Teams Student Records Specialist Relationship Specialty Start Date End Date Tg Milner FNP [address] [place] [address] PCP - General Family Medicine 04/28/22 Elena Nichols PharmD [address] [place] [address] Pharmacist Pharmacy 12/13/24 documented as of this encounter
--- OUTSIDE RECORDS SUMMARY | 2025-04-02 15:55 | XMS_ITS | Encounter Summary ---
Author Organization [employer] Address [address] [facility] [address] [place] [address] Care Team Providers Care Belt Line Feeder Name Role Phone Tg Milner DATA MANAGEMENT Primary Care Provider [phone] Elena Nichols PharmD Unavailable [phone] Encounter Details Date Type Department Care Team ([facility] st Contact Info) Description 04/17/2023 Abstract [facility] MEDICINE [address] [place] [address] Addis Hathaway Social History Tobacco Use Types [...] documented as of this encounter Care Teams Belt Line Feeder Relationship Specialty Start Date End Date Tg Milner FNP [address] [place] [address] PCP - General Family Medicine 04/28/22 Elena Nichols PharmD [address] [place] [address] Pharmacist Pharmacy 12/13/24 documented as of this encounter
--- OUTSIDE RECORDS SUMMARY | 2025-04-02 15:55 | XMS_ITS | Encounter Summary ---
Author Organization [employer] Address [address] [place] [address] Care Team Providers Care Electrical Accessories I Assembler Name Role Phone Tg Milner [facility] Primary Care Provider [phone] Elena Nichols PharmD Unavailable [phone] Reason for Visit * Reason Comments Med Refill Encounter Details Date Type Department Care Team ([facility] st Contact Info) Description 06/18/2022 Refill [facility] MEDICINE [address] [place], [place] [phone] Tg Milner [facility] [address] [place] [address] Type 2 diabetes mellitus without complication, without long-term current use of insulin ([facility]) Social History Tobacco Use Types [...] complication, without long-term current use of insulin ([facility]) documented in this encounter Care Teams Electrical Accessories I Assembler Relationship Specialty Start Date End Date Tg Milner FNP [address] [place] [address] PCP - General Family Medicine 04/28/22 Elena Nichols, GaleD [address] [place] [address] Pharmacist Pharmacy 12/13/24 documented as of this encounter
--- OUTSIDE RECORDS SUMMARY | 2025-04-02 15:55 | XMS_ITS | Clinical Summary ---
Author Organization [employer] Address [address] [facility] 7t [place] [address] Care Team Providers Care Seat Installer Name Role Phone Tg Milner MIX[employer]NER Primary Care Provider [phone] Elena Nichols PharmD Unavailable [phone] Allergies No known active allergies Medications latanoprost [...] disease, with long-term current use of insulin ([facility]) Inject 5 mg under the skin 1 (one) time per week. 2 mL 11 Active Continuous Glucose Sensor (DexConfabb G7 Sensor) [facility] APPLY 1 Sensor AND CHANGE EVERY 10 [...] disease, with long-term current use of insulin ([facility]) Inject 16 units subcutaneous daily 15 mL 11 025 [...] disease, with long-term current use of insulin ([facility]) Inject 36 units subcutaneous daily 15 mL 11 2024 Discontinued(R eorder (will not trigger notification to Pharmacy)) meclizine (Antivert) 25 MG tablet Take 1 tablet (25 mg) by mouth if needed in the morning, at noon, and at bedtime for dizziness or nausea for up to 10 days. 30 tablet 2024 glucose 4 g chewable tablet Chew 4 tablets (16 g) if needed for low blood sugar. <70 mg/dL. Recheck BG after 15 mins and repeat treatment as needed & as directed. 20 tablet 1 2024 Discontinued insulin glargine (Lantus SoloStar) 100 UNIT/ML penIndications:Ty pe 2 diabetes mellitus with stage 3b chronic kidney disease, with long-term current use of insulin ([facility]) Inject 10 units subcutaneous daily 15 mL 2024 Discontinued insulin glargine (Lantus SoloStar) 100 UNIT/ML penIndications:Ty pe 2 diabetes mellitus with stage 3b chronic kidney disease, with long-term current use of insulin ([facility]) Inject 10 units subcutaneous daily 15 mL 025 2024 Discontinued(R eorder (will not trigger notification to Pharmacy)) insulin glargine (Lantus SoloStar) 100 UNIT/ML penIndications:Ty pe 2 diabetes mellitus with stage 3b chronic kidney disease, with long-term current use of insulin ([facility]) Inject 12 units subcutaneous daily 15 mL 11 025 2024 Discontinued(R eorder (will not trigger notification to Pharmacy)) Active Problems Problem Noted Date Diagnosed Date Vertigo 02/27/2025 Assessment & Plan (02/27/2025 5:37 PM EDT): Orders: Referral to Physical Therapy; Future Chronic ulcer of great toe of left foot (CMS/HCC ) 02/27/2025 Assessment & Plan (02/27/2025 5:37 [...] venous insufficiency 06/14/2018 Overview (11/26/2022): Followed by [facility] vascular Compression stockings Pain managed with gabapeentin 800mg t.i.d Followed by [facility] wound care for venous stasis ulcer Assessment [...] Foot Exam: 07/2023--RISK 1 Eye Exam: Through [facility]. UTD Statin: Yes ASA: Yes GISELA/ARB: [...] Encounters Date Type Department Care Team Description 03/27/2025 Telephone [facility] MEDICINE [address] [place] [address] Elena Nichols PharmD 03/24/2025 Telephone [facility] MEDICINE [address] [place] [address] Elena Nichols PharmD 03/24/2025 Travel 03/21/2025 3:00 PM EDT Telemedicine [facility] MEDICINE [address] [place] [address] Elena Nichols PharmD Diabetic polyneuropathy associated with type 2 diabetes mellitus (HCC) (Primary Dx); Type 2 diabetes mellitus with stage 3b chronic kidney disease, with long-term current use of insulin ([facility]); Mixed hyperlipidemia 03/15/2025 Refill [facility] MEDICINE [address] [place] [address] Tg Milner FNP Constipation, unspecified constipation type 03/01/2025 Orders Only [facility] External Provider, [facility] 02/27/2025 4:00 PM EDT Office Visit [facility] [address] [place] [address] Ingrid Lynn NP Vertigo (Primary Dx); Chronic ulcer of great toe of left foot, unspecified ulcer stage ([facility]/HCC) 02/27/2025 Telephone [facility] MEDICINE [address] [place] [address] Tg Milner FNP Nurse Triage 02/27/2025 Travel 02/24/[address] [address] Tg Milner FNP Provider out 03/0102/22/2025 Orders Only [facility] [address] [place] [address] Tg Milner FNP Dyspepsia (Primary Dx) 02/20/2025 Travel 02/16/2025 4:00 PM EDT Office Visit [facility] [address] [place] [address] Melisa Jacob MD Acute midline low back pain without sciatica (Primary Dx) 02/16/2025 Orders Only [facility] MEDICINE [address] [place] [address] Melisa Jacob MD 02/16/2025 Refill [facility] [address] [place] [address] Tg Milner FNP Gastroesophageal reflux disease, unspecified whether esophagitis present 02/16/2025 Travel 02/08/2025 Refill [facility] [address] [place] [address] Annia KRISTY Mas Mixed hyperlipidemia 02/06/2025 Refill [facility] [address] [facility] [place] [address] Annai KRISTY Mas Type 2 diabetes mellitus with other circulatory complication, without long-term current use of insulin ([facility]) 02/01/2025 Refill [facility] [address] [facility] [place] [address] Tg Milner FNP Pain in right lumbar region of back; Right flank pain 01/31/2025 Refill [facility] MED & PEDS [address] [place] [address] Annia KRISTY Mas Primary osteoarthritis of right knee 01/23/2025 Refill [facility] MEDICINE [address] [facility] [place] [address] gT MilnerKRISTY Constipation, unspecified 01/18/2025 Orders Only GENERIC EXTERNAL DATA DEPARTMENT Provider, Generic External Data 01/16/2025 Telephone [facility] [address] [place] [address] Tg Milner FNP 01/12/[address] [address] Heidi Silva, LANA Care Coordination 01/11/2025 2:00 PM EDT Office Visit [address] [place] [address] The RockTg dalal FNP Preoperative clearance (Primary Dx); Type 2 diabetes mellitus with stage 3b chronic kidney disease, with long-term current use of insulin ([facility]); Urinary retention; Right bundle branch block 01/11/2025 Travel 01/10/2025 Telephone [facility] [address] [place] [address] Tg Milner FNP Chart Prep 01/09/[address] [address] Tg Milner FNP Pre Op 01/04/2025 Travel from Last 3 Months Immunizations Immunization [...] 01/11/2025 2:06 PM EDT Plan of Treatment Health Maintenance [...] 07/22/2025 07/22/2024 Depression Screening 01/11/2026 01/11/2025, 01/12/20 Tobacco Screening 02/16/2026 02/16/2025 DTaP/Tdap/Td Vaccines (3 [...] disease, with long-term current use of insulin ([facility]) POCT GLYCATED HEMOGLOBIN, TOTAL Routine 01/11/2025 2:07 PM EDT Type 2 diabetes mellitus with stage 3b chronic kidney disease, with long-term current use of insulin ([facility]) LIPID PANEL, STANDARD Routine 01/22/2024 10:21 AM EDT Type 2 diabetes mellitus with hyperglycemia, without long-term current use of insulin ([facility]) HEPATITIS C AB W/REFL TO HCV RNA, QN, PCR Routine 09/01/2022 2:59 PM EDT Healthcare maintenance from Last 3 Months or Most Recently Relevant to Health Maintenance Results * XR Foot 3+ Views Left (03/01/2025 4:08 PM EDT) Anatomical Region Laterality Modality Lower Extremities, Foot Left [facility] 03/01/2025 4:08 PM EDT Narrative 03/02/2025 8:25 AM EDT [facility] [address] [place] [address] XRay Report Signed Patient: Brandt Nelson MR#: [id number] : 1960 Acct:[id number] Age/Sex: 64 / M ADM Date: 03/01/25 Loc: .[facility] Attending Dr: Moira Issa MD Ordering Physician: Moira Issa MD Date of Service: 03/01/25 Procedure(s): XR foot LT min 3V Accession Number(s): [id number] cc: Moira Issa MD; [facility] Reason for Exam: NON HEALING WOUND EXAMINATION: [...] Muro MD 03/02/2025 08:22 AM EDT RP Dictated By: Les Muro MD Signed By: <Electronically signed by Les Muro MD in OV> 03/02/25 0822 DD/ 1608 TD/TT: 03/01/25 1610 Body Artist: Procedure Note Donotuseinterpreter, Image - 03/02/2025 [facility] [address] [place] [address] XRay Report Signed Patient: Brandt NelsonMR#: [id number] : 9Acct:[id number] Age/Sex: 64 / MADM Date: 03/01/25 Loc: .[facility] Attending Dr: Moira Isas MD Ordering Physician: Moira Issa MD Date of Service: 03/01/25 Procedure(s): XR foot LT min 3V Accession Number(s): [id number] cc: Moira Issa MD; [facility] Reason for Exam: NON HEALING WOUND EXAMINATION: [...] Muro MD 03/02/2025 08:22 AM EDT RP Dictated By: Les Muro MD Signed By: <Electronically signed by Les Muro MD in OV> 03/02/25 0822 DD/ 1608 TD/TT: 03/01/25 1610 Body Artist: [facility] External Provider IMG XR PROCEDURES Edited Result - Final * Culture, Urine, Routine (02/16/2025 8:38 PM EDT) Urine Urine specimen obtained by clean catch procedure / Unknown 02/16/2025 8:38 PM EDT 02/16/2025 8:38 PM EDT Comment:UACC Narrative [facility] - 02/20/2025 9:37 AM EDT Strep agalactiae (Grp B) Quant 50,000 to 100,000 cfu/mL Susc N/A Susceptibility not routinely performed on this isolate. Viviana albicans Quant 10,000 to 50,000 cfu/mL Specimen Source: Urine clean catch Melisa Jacob MD LAB MICROBIOLOGY - GENERAL ORDERABLES Final Result Performing Organization Address City/State/[facility] Co de Phone Number [facility] [address] [place] [phone] * XR Lumbar Spine 2-3 Views (02/16/2025 4:14 PM EDT) Anatomical Region Laterality Modality Spine, L-spine Radiographic Cheryl ging 02/16/2025 4:14 PM EDT Narrative 02/16/2025 4:45 PM EDT [address] [address] XRay Report Signed Patient: Brandt Nelson MR#: [id number] : 1960 Acct:[id number] Age/Sex: 64 / M ADM Date: 02/16/25 Loc: .[facility] Attending Dr: Melisa Jacob MD Ordering Physician: Melisa Jacob MD Date of Service: 02/16/25 Procedure(s): XR lumbar spine 2-3V Accession Number(s): [id number] cc: Melisa Jacob MD Reason for Exam: [...] 02/16/25 1642 DD/ 1614 TD/TT: 02/16/25 1615 Body Artist: Procedure Note Donotuseinterpreter, Image - 02/16/2025 [place] [address] XRay Report Signed Patient: Brandt Nelson#: [id number] : 9Acct:[id number] Age/Sex: 64 / MADM Date: 02/16/25 Loc: [facility] Attending Dr: Melisa Jacob MD Ordering Physician: Melisa Jacob MD Date of Service: 02/16/25 Procedure(s): XR lumbar spine 2-3V Accession Number(s): [id number] cc: Melisa Jacob MD Reason for Exam: acute low back pain described as 10/10 EXAMINATION: XR LUMBOSACRAL SPINE CLINICAL INFORMATION: acute [...] 02/16/25 1642 DD/ 1614 TD/TT: 02/16/25 1615 Body Artist: us Melisa Jacob MD IMG XR PROCEDURES Final Re sult * (ABNORMAL) Urinalysis, Complete, with Reflex to Culture (02/16/2025 4:00 PM EDT) Color Urine Yellow [facility] Appearance Urine Turbid [facility] PH 5.5 5.0 - 9.0 [facility] Glucose Urine UA >=1000(A) Negative mg/dL [facility] Urine Blood Moderate (2+)(A) Negative [facility] Specific [place] - Urine >=1.030(H) 1.005 - 1.025 [facility] Urine Protein 30 (1+)(A) Neg-Trace mg/dL [facility] Urine Ketones Negative Negative mg/dL [facility] Nitrite Urine Negative Negative [facility] Leukocyte Esterase Urine Moderate (2+)(A) Negative [facility] RBC Urine 3-5(A) 0 - 2 /HPF [facility] Urine WBC 21-50 0 - 5 /HPF [facility] WBC CLUMPS, UR Present [facility] Urine Squamous Epithelial Cell 0-2 0 - 2 /HPF [facility] Urine Bacteria 1+ None Seen [facility] Hyaline Casts, Urine 0-2 0 - 2 /LPF [facility] Urine Yeast Present [facility] Urine 02/16/2025 4:00 PM EDT 02/16/2025 5:26 PM EDT Narrative [facility] - 02/16/2025 7:45 PM EDT Urine, Clean Catch us Melisa Jacob MD LAB URINE ORDERABLES Final Result Performing Organization Address City/State/[facility] Co de Phone Number [facility] [address] [place] [phone] * (ABNORMAL) Urinalysis Complete (01/18/2025 2:13 PM EDT) Color Urine Yellow [facility] Appearance Urine Turbid [facility] PH 6.0 5.0 - 9.0 [facility] Glucose Urine UA >=1000(A) Negative mg/dL [facility] Urine Blood Moderate (2+)(A) Negative [facility] Specific [place] - Urine >=1.030(H) 1.005 - 1.025 [facility] Urine Protein 30 (1+)(A) Neg-Trace mg/dL [facility] Urine Ketones Negative Negative mg/dL [facility] Nitrite Urine Negative Negative [facility] Leukocyte Esterase Urine Moderate (2+)(A) Negative [facility] RBC Urine 11-20(A) 0 - 2 /HPF [facility] Urine WBC >50(A) 0 - 5 /HPF [facility] Urine Squamous Epithelial Cell 6-10 0 - 2 /HPF [facility] Urine Bacteria 2+ None Seen [facility] Hyaline Casts, Urine 0-2 0 - 2 /LPF [facility] Urine Yeast Present [facility] 01/18/2025 2:13 PM EDT 01/18/2025 5:20 PM EDT us Generic External Data Provider LAB URINE ORDERAB LES Final Result [facility] [address] [place] [address] [phone] * (ABNORMAL) CBC (01/18/2025 2:13 PM EDT) White Blood Count 7.1 4.8 - 10.8 X10*3/uL [facility] Red Blood Count 4.96 4.60 - 5.80 X10*6/uL [facility] Hemoglobin 13.9(L) 14.0 - 18.0 g/dl [facility] Hematocrit 41.8(L) 42.0 - 52.0 % [facility] Mean Corpuscular Volume 84.3 80.0 - 98.0 fL [facility] Mean Corpuscular Hemoglobin 28.0 27.0 - 33.0 pg [facility] Mean Corpuscular HGB Conc 33.3 31.0 - 36.0 g/dl [facility] Red Cell Distribution Width 13.3 11.0 - 16.0 % [facility] Platelet Count 229 160 - 400 X10*3/uL [facility] Mean Platelet Volume 11.2 9.4 - 12.4 fL [facility] NRBC Pct Auto 0.0 0.0 - 0.2 /100WBC [facility] NRBC Abs Auto 0.000 0.0 - 0.012 X10*3/uL [facility] 01/18/2025 2:13 PM EDT 01/18/2025 5:16 PM EDT us Generic External Data Provider LAB BLOOD ORDERAB LES Final Result Performing Organization Address [facility]/ZIP Co de Phone Number [facility] [address] [place] [address] [phone] * (ABNORMAL) Basic Metabolic Panel (01/18/2025 2:13 PM EDT) Sodium 134(L) 135 - 145 mmol/L [facility] Potassium 5.7(H) 3.3 - 5.1 mmol/L [facility] Chloride 99 96 - 108 mmol/L [facility] Carbon Dioxide 23 22 - 29 mmol/L [facility] Anion Gap 18 12 - 20 [facility] Urea Nitrogen (BUN) 33(H) 9 - 16 mg/dL [facility] Creatinine, Serum 1.63(H) 0.5 - 1.4 mg/dL [facility] Estimated Glomerular Filt Rate 43 [facility] Comment:Chronic Kidney Disea se: Estimated GFR < 60 mL/min/1.75i5Tamizy Kidney Disease: Estimated GFR < 15 mL/min/1.73m2 Glucose 389(HH) 60 - 115 mg/dL [facility] Comment:Critical value for t est(s): GLUR Results called to nati back by: SOLA Person calling: GM Date:01.18.25 Time: 1830 Calcium 9.8 8.4 - 10.2 mg/dL [facility] 01/18/2025 2:13 PM EDT 01/18/2025 5:16 PM EDT us Generic External Data Provider LAB BLOOD ORDERAB LES Final Result Performing Organization Address [facility]/ZIP Co de Phone Number [facility] [address] [place] [address] [phone] * ECG 12 lead (01/12/2025 9:04 AM EDT) Narrative Tg Milner FNP - 01/12/2025 9:04 AM EDT Sinus rhythm. New partial RBB not present in prior tracing. See scanned report [facility] MIXER RUNNER ECG ORDERABLES Final Result * (ABNORMAL) POCT Glucose (01/11/2025 2:08 PM EDT) Pathologist [facility] Glucose Blood, POC 296(A) 60 - 200 mg/dL QC Media Lot # [id number] Lot# Expiration Date Blood Capillary blood specimen / Unknown 01/11/2025 2:08 PM EDT [facility] MIXER RUNNER POINT OF CARE TEST ENTER/EDIT ORDERABLES Final Result * (ABNORMAL) POCT HGB A1C (01/11/2025 2:07 PM EDT) [facility] Hemoglobin A1C 10.4(A) 4.0 - 5.7 % QC Media Lot # [id number] Lot# Expiration Date Blood 01/11/2025 2:07 PM EDT [facility] POINT OF CARE TEST ENTER/EDIT ORDERABLES Final Result * (ABNORMAL) Lipid Panel, Standard (01/22/2024 10:21 AM EDT) [facility] Triglycerides 291(H) <150 mg/dL [facility] Comment:Desirable Triglyceri de: less than 150 mg/dLBorderline High Triglyceride 150-199 mg/dLHigh Triglyceride: 200-499 mg/dLVery High Triglyceride: greater than or equal to 5OO mg/dL Cholesterol 166 <200 mg/dL [facility] Comment:Desirable Cholestero l: less than 200 mg/dLBorderline High Cholesterol: 200-239 mg/dLHigh Cholesterol: greater than 239 mg/dL LDL Cholesterol Calculated 77 <100 mg/dL [facility] Comment:Desirable LDL: less than 100 mg/dLNear Optimal/Above Optimal LDL: 110- 129 mg/dLBorderline High LDL: 130-159 mg/dLHigh LDL: 160-189 mg/dLVery High LDL: greater than or equal to 190 mg/dL HDL Cholesterol 31(L) >40 mg/dL [facility] Comment:Desirable HDL: great er than 40 mg/dL Note: This HDL assay may give artificially low results in patients with liver disease. Blood Venous blood specimen / Unknown 01/22/2024 10:21 AM EDT 01/22/2024 11:05 AM EDT [facility] LAB BLOOD ORDERABLES Final Re sult [facility] [address] [place] [phone] [phone] * Hepatitis C Antibody with Reflex to HCV, RNA, Quantitative, Real-Time PCR (09/01/2022 2:59 PM EDT) Hepatitis C Antibody NON-REACT DARY NON-REACT DARY Bilneur Index 0.09 <1.00 Bilneur Comment: HCV antibody was non-reactive. There is no laboratory evidence of HCV infection. In most cases, no further action is required. However, if recent HCV exposure is suspected, a test for HCV RNA (test code 11256) is suggested. For additional information please refer to http://education.Giraffic/faq/OUP98c7 (This link is being provided for informational/ educational purposes only.) Blood Venous blood specimen / Unknown 09/01/2022 2:59 PM EDT 09/01/2022 2:59 PM EDT [facility] LAB BLOOD ORDERABLES Final Re sult Performing Organization Address City/[facility]/ZIP Co de Phone Number [facility] [address] [place] [address] [facility] [employer] [address] [place] [phone] from Last 3 Months or Most Recently Relevant to Health Maintenance Insurance [employer] (HMO D-SNP) [facility] Care Teams Seat Installer Relationship Specialty Start Date End Date Tg Milner, MIXER RUNNER [address] [place] [address] PCP - General Family Medicine 04/28/22 Elena Nichols PharmD [address] [place] [address] Pharmacist Pharmacy 12/13/24
--- OUTSIDE RECORDS SUMMARY | 2025-04-02 15:55 | XMS_ITS | Encounter Summary ---
Author Organization [employer] Address [address] [place] [address] Care Team Providers Care Inspector Crystal Name Role Phone Annia [facility] Primary Care Provider [phone] Elena Nichols PharmD Unavailable [phone] Encounter Details Date Type Department Care Team ([facility] st Contact Info) Description 02/22/2025 Orders Only [facility] [address] [place] [address] [place] [facility] [address] [place] [address] Dyspepsia (Primary Dx) Social History Tobacco Use [...] documented as of this encounter Care Teams Inspector Crystal Relationship Specialty Start Date End Date Tg Milner FNP [address] [place] [address] PCP - General Family Medicine 04/28/22 Elena Nichols PharmD [address] [place] [address] Pharmacist Pharmacy 12/13/24 documented as of this encounter
--- OUTSIDE RECORDS SUMMARY | 2025-04-02 15:55 | XMS_ITS | Encounter Summary ---
Author Organization [employer] Address [address] [place] [address] [address], [place] [address] Care Team Providers Care Oil Pipe Inspector Helper Name Role Phone Annia [facility] Primary Care Provider [phone] Elena Nichols PharmD Unavailable [phone] Reason for Visit * Reason Comments Med Refill Encounter Details Date Type Department Care Team ([facility] st Contact Info) Description 12/25/2022 Refill [facility] [address] [place], [place] [phone] [place] [facility] [address] [place] [address] Type 2 diabetes mellitus without complication, without long-term current use of insulin ([facility]) Social History Tobacco Use Types [...] complication, without long-term current use of insulin ([facility]) documented in this encounter Additional Health Concerns Assessment Noted Time PHQ-9 Depression Total Score: 0 11/25/19 23 3:32 PM EDT documented as of this encounter Care Teams Oil Pipe Inspector Helper Relationship Specialty Start Date End Date Tg Milner, BATCH RECORDS CLERK [address] [place] [address] PCP - General Family Medicine 04/28/22 Elena Nichols PharmD [address] [place] [address] Pharmacist Pharmacy 12/13/24 documented as of this encounter
--- OUTSIDE RECORDS SUMMARY | 2025-04-02 15:55 | XMS_ITS | Encounter Summary ---
Author Organization [employer] Address [address] [place] [address] [address] [place] [address] Care Team Providers Care Floral Associate Name Role Phone Annia [facility] Primary Care Provider [phone] Elena Nichols PharmD Unavailable [phone] Reason for Visit * Reason Comments Med Refill Encounter Details Date Type Department Care Team ([facility] st Contact Info) Description 12/22/2022 Refill [facility] [address] [place], [place] [phone] [place] [facility] [address] [place] [address] Primary hypertension Social History Tobacco Use Types [...] documented as of this encounter Care Teams Floral Associate Relationship Specialty Start Date End Date [place] KRISTY Mas [address] [place] [address] PCP - General Family Medicine 04/28/22 Elena Nichols, [place] [address] [place] [address] Pharmacist Pharmacy 12/13/24 documented as of this encounter
--- OUTSIDE RECORDS SUMMARY | 2025-04-02 15:55 | XMS_ITS | Encounter Summary ---
Author Organization [employer] Address [address] [facility] 7 [place] [address] Care Team Providers Care Explosives Worker Name Role Phone Annia [facility] Primary Care Provider [phone] Elena Nichols PharmD Unavailable Reason for Visit * Reason Comments Med Refill Encounter Details Date Type Department Care Team ([facility] st Contact Info) Description 07/01/2023 Refill [facility] [address] [place] [address] [place] [facility] [address] [place] [address] Primary osteoarthritis of right knee Social History [...] documented as of this encounter Care Teams Explosives Worker Relationship Specialty Start Date End Date Tg Milner FNP 230 [place] [address] PCP - General Family Medicine 04/28/22 Elena Nichols PharmD [address] [place] [address] Pharmacist Pharmacy 12/13/24 documented as of this encounter
--- OUTSIDE RECORDS SUMMARY | 2025-04-02 15:55 | XMS_ITS | Encounter Summary ---
Author Organization [employer] Address [address] [facility] [address]t [place] [address] Care Team Providers Care Merchant Miller Name Role Phone Tg Milner [facility] Primary Care Provider [phone] Elena Nichols PharmD Unavailable [phone] Encounter Details Date Type Department Care Team ([facility] st Contact Info) Description 01/16/2025 Telephone [facility] 230 [place], [place] [phone] [place] [facility] 230 [place] [address] Social History Tobacco Use Types Packs/Day Years [...] today's appointment. Requesting a call back at [phone] documented in this encounter Plan of Treatment Not on file documented as of this encounter Visit Diagnoses Not on filedocumented in this encounter Additional Health Concerns Assessment Noted Time PHQ-9 Depression Total Score: 0 01/12/20 25 2:08 PM EDT documented as of this encounter Care Teams Merchant Miller Relationship Specialty Start Date End Date Tg Milner FNP [address] [place] [address] PCP - General Family Medicine 04/28/22 Elena Nichols PharmD [address] [place] [address] Pharmacist Pharmacy 12/13/24 documented as of this encounter
--- OUTSIDE RECORDS SUMMARY | 2025-04-02 15:55 | XMS_ITS | Encounter Summary ---
Author Organization [employer] Address [address] [facility] 7t [place] [address] Care Team Providers Care Parts Puller Name Role Phone Annia [facility] Primary Care Provider Elena Nichols PharmD Unavailable [phone] Reason for Visit * Reason Comments Med Refill Encounter Details Date Type Department Care Team ([facility] Contact Info) Description 08/31/2024 [facility] 230 [place], [place] [phone] [place] [facility] 230 [place] [address] Primary hypertension Social History Tobacco Use Types [...] documented as of this encounter Care Teams Parts Puller Relationship Specialty Start Date End Date Tg Milner FNP 230 [place] [address] PCP - General Family Medicine 04/28/22 Elena Nichols PharmD 230 [place] [address] Pharmacist Pharmacy 12/13/24 documented as of this encounter
--- NOTE | 2025-04-02 16:02 | ED_ITS ---
HPI - Male Genitourinary General Chief complaint: Urogenital-Male Stated complaint: F/C DISLODGED,PAINFUL/FOUL URINATION FOR DAYS Time Seen by Provider: 04/02/25 16:02 History of Present Illness ED Provider: Homar ELMORE Narrative: The patient is a 64-year-old male who has had an indwelling urinary catheter for the last 3 months. He has been seen at the urology office. He may need prostate surgery. He says that today he had an abrupt onset of discomfort in the region of his bladder. He says that he felt as though the balloon of the catheter had ?exploded. ? He then urinated through the catheter (he does not keep the catheter attached to tubing. He uses a plug and voids intermittently). He says he then had hematuria. He was alarmed and called an ambulance and he was brought to the hospital. No fever, no vomiting. No back pain or flank pain. Related Data Home Medications ?Medication ?Instructions ?Recorded ?Confirmed aspirin 81 mg tablet,delayed 81 mg PO DAILY 03/29/20 0 01/31/25 release (Adult Aspirin Regimen) gabapentin 800 mg tablet 800 mg PO BID 03/29/2001/31 metoprolol succinate 200 mg 200 mg PO DAILY 03/29/20 0 01/31/25 tablet,extended release 24 hr alcohol swabs (Alcohol Prep Pads) pad topical DAILY 01/31/25 blood sugar diagnostic (FreeStyle #10 ea 08/29/2107/26 Lite Strips) lancets 33 gauge (TRUEplus Lancets) #100 ea 08/29/21 0 01/31/25 latanoprost 0.005 % eye drops 1 drp ophthalmic (eye) B EDTIME 08/29/21 01/31/25 melatonin 5 mg tablet 10 mg PO BEDTIME PRN insomni a 08/29/21 01/31/25 pantoprazole 20 mg tablet,delayed 20 mg PO DAILY 08/2901/31/25 release amlodipine 10 mg tablet 10 mg PO DAILY 02/25/2407/26 dulaglutide 4.5 mg/0.5 mL mg subcut 02/25/24 01/31/25 subcutaneous pen injector (Trulicity) pravastatin 40 mg tablet 40 mg PO DAILY 02/25/2407/26 acetaminophen 500 mg tablet 500 mg PO Q6H PRN mild dyllan n 10/05/24 01/31/25 empagliflozin 12.5 mg-metformin ER 2 tab PO QAM 01/31/25 1,000 mg tablet,extended rel 24 hr (Synjardy XR) insulin glargine 100 unit/mL (3 30 unit subcut 5 01/31/25 mL) subcutaneous pen (Lantus Solostar U-100 Insulin) multivitamin 1 tab PO DAILY 01/18/2507/26 spironolactone 25 1 tab PO DAILY 01/18/2507/26 mg-hydrochlorothiazide 25 mg tablet Previous Rx's ?Medication ?Instructions ?Recorded diphenoxylate-atropine 2.5 1 tab PO DAILY PRN diarrhea #4 tabs 01/21/21 mg-0.025 mg tablet (Lomotil) docusate sodium 250 mg capsule 250 mg PO BID PRN const ipation #10 09/01/24 caps bisacodyl 5 mg tablet,delayed 5 mg PO ONCE 1 day #3 ta bs 09/16/24 release polyethylene glycol 3350 17 238 g PO ONCE laxative eff ect 1 09/16/24 gram/dose oral powder (Miralax) day #238 grams methenamine hippurate 1 gram tablet 1 g PO DAILY 90 da ys #90 tabs 11/23/24 ciprofloxacin HCl 500 mg tablet 500 mg PO BID #20 tabs 12/08/24 sodium zirconium cyclosilicate 5 5 g PO DAILY #11 ea 0 01/19/25 gram oral powder packet (Lokelmn) ascorbic acid (vitamin C) 1,000 mg 1,000 mg PO DAILY 9 0 days #90 tabs 02/20/25 tablet doxazosin 4 mg tablet 4 mg PO BEDTIME 30 days #30 tabs 02/20/25 finasteride 5 mg tablet 5 mg PO DAILY 90 days #90 ta bs 02/20/25 cefpodoxime 200 mg tablet 200 mg PO BID 7 days #14 tab s 04/02/25 Allergies Allergy/AdvReac Type Severity Reaction Status Date / Time No Known Allergies (No Known Allergy Verified 04/02/25 13:51 Allergies*) [facility] Past Medical History Medical History Osteomyelitis DM2 (diabetes mellitus, type 2) Essential hypertension Right lumbar radiculopathy Arthritis of both knees Balanitis Type 2 diabetes mellitus with polyneuropathy Hyperlipidemia LDL goal <100 Obesity due to excess calories Type 2 diabetes mellitus with hyperglycemia, with long-term current use of insulin Surgical History H/O colonoscopy Hx of tonsillectomy Hx of appendectomy Family History Family History Father No problems noted. 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 He seems anxious but does not seem in acute distress. HEENT: Other: I had the sense that there was a slight asymmetry the patient's face that I suspect is chronic. I think there is some slight weakness on the right side of the face. Mucous membranes are moist. Eyes: Other: Pupils are round equal, conjunctivae are clear, extraocular movements intact Neck: Other: Moving his neck normally Resp: Effort & Inspection: normal respiratory effort Auscultation: clear to auscultation bilaterally Cardio: Rate: regular rate Rhythm: regular rhythm Heart sounds: S1 normal heart sound present and S2 normal heart sound present GI: Other: the abdomen was soft and not significantly tender. No marked suprapubic tenderness. : Other: Normal external genitalia Skin: Other: Skin was dry and unremarkable. Neuro: Other: the patient is awake, alert, pleasant, cooperative. He has a normal mental status. I had some impression that he seemed to have some chronic right-sided facial weakness but otherwise he seems grossly neurologically intact. Extrem: Other: No peripheral edema Medications Administered Discontinued Medications Generic Name Dose Route Start Last Admin Trade Name Brittany PRN Reason Stop Dose Admin Cefuroxime Axetil 500 mg 04/02/25 20:32 04/02/25 21:12 Cefuroxime Axetil 500 Mg Tablet PO 04/02/25 20:33 500 mg ONCE ONE Administration Lidocaine HCl 10 ml 04/02/25 18:56 04/02/25 19:20 Lidocaine Hcl 2 % Urojet 10 Ml Jel[employer]Pf.Ariana TOPICAL 04/02/25 18:57 10 ml ONCE ONE Administration Medical Decision Making Medical Decision Making [facility] Narrative: the patient is a 64-year-old male who comes to the emergency room after experiencing what he describes as a sensation of something bursting in his bladder. He said he thought that perhaps the balloon on his urinary catheter had ruptured or exploded to use his word. I have never seen a case of a urinary catheter balloon rupturing and I do not really understand how the patient might have experienced a sensation of such a rupture but when we removed the patient's catheter it was clear that the balloon had in fact ruptured. Please see the pictures below. I obtained a noncontrast CT scan of the abdomen and pelvis to see if there might be any radiopaque fragments of the balloon visible on CT scan. The appearance of the removed catheter suggested that there might be fragments in the bladder. No findings of of radiopaque foreign matter were seen in the bladder on the CT scan. There are findings consistent with cystitis. The patient's urinalysis is consistent with urinary tract infection. The patient does not seem toxic or septic in any way. He is not febrile. He does not have an elevated white count. I reviewed the case with Dr. stern of Urology felt that the patient might be a candidate for outpatient follow up and a possible cystoscopy but otherwise the patient does not require any acute procedure. I think this is entirely appropriate. The patient was given a dose of cefuroxime 500 mg in the emergency department. I will send a prescription for cefpodoxime to his pharmacy. He should contact Urology tomorrow morning for prompt follow up. Lab Data 04/02/25 16:49 04/02/25 16:49 Labs: Lab Results 04/02/25 04/02/25 Range/Units 16:49 20:06 WBC 8.1 (4.8-10.8) X10*3/uL RBC 4.89 (4.60-5.80) X10*6/uL Hgb 13.8 L (14.0-18.0) g/dl Hct 40.7 L (42.0-52.0) % MCV 83.2 (80.0-98.0) fL MCH 28.2 (27.0-33.0) pg MCHC 33.9 (31.0-36.0) g/dl RDW 12.9 (11.0-16.0) % Plt Count 252 (160-400) X10*3/uL MPV 9.4 (9.4-12.4) fL Immature Gran % (Auto) 0.5 H (0.0-0.4) % Neut % (Auto) 66.5 (45-73) % Lymph % (Auto) 19.6 L (20-40) % [place] % (Auto) 10.5 (2-11) % Eos % (Auto) 2.5 (0-4) % Baso % (Auto) 0.4 (0-2) % Lymph # (Auto) 1.6 (1.2-4.9) X10*3/uL [place] # (Auto) 0.9 (0.1-1.2) X10*3/uL Eos # (Auto) 0.2 (0.0-0.4) X10*3/uL Baso # (Auto) 0.0 (0.0-0.2) X10*3/uL Abs Immat Gran (auto) 0.04 H (0.00-0.03) X10*3/uL Absolute Neuts (auto) 5.4 (2.0-8.3) x10*3/uL Absolute Nucleated RBC 0.000 (0.0-0.012) X10*3/uL Nucleated RBC % (auto) 0.0 (0.0-0.2) /100WBC Sodium 136 (135-145) mmol/L Potassium 5.5 H (3.3-5.1) mmol/L Chloride 103 (96-108) mmol/L Carbon Dioxide 23 (22-29) mmol/L Anion Gap 16 (12-20) BUN 36 H (9-16) mg/dL Creatinine 1.77 H (0.5-1.4) mg/dL Estim Creat Clear Calc 46.5 Estimated GFR 39 Random Glucose 171 H (60-115) mg/dL Calcium 9.6 (8.4-10.2) mg/dL Urine Color Yellow Urine Appearance Turbid Urine pH 5.5 (5.0-9.0) Ur Specific [place] 1.025 (1.005-1.025) Urine Protein 300 (3+) H (Neg-Trace) mg/dL Urine Glucose (UA) >=1000 H (Negative) mg/dL Urine Ketones Negative (Negative) mg/dL Urine Blood Large (3+) H (Negative) Urine Nitrite Negative (Negative) Ur Leukocyte Esterase Large (3+) H (Negative) Urine RBC 6-10 H (0-2) /HPF Urine WBC >50 H (0-5) /HPF Ur Squamous Epith Cells 3-5 (0-2) /HPF Urine Bacteria 1+ (None Seen) Hyaline Casts 3-5 (0-2) /LPF Urine Yeast Present Discharge Plan Discharge Clinical Impression: Urinary tract infection, Problem with urinary catheter Patient Disposition: Home, Self-Care Additional Instructions: I have sent a prescription for additional antibiotics to the [facility] pharmacy on [facility]. Please start taking this tomorrow morning, 2 times a day. The antibiotic is called cefpodoxime. Please take it 2 times a day, approximately every 12 hours. Please contact your urology office tomorrow morning for a follow up appointment. Drink lot of fluids. Return to the emergency room if significantly worse. Prescriptions: New cefpodoxime 200 mg tablet 200 mg PO BID 7 Days Qty: 14 0RF Rx Instructions: must administer with a meal/food No Action Lokelma 5 gram powder in packet 5 g PO DAILY Qty: 11 0RF ascorbic acid (vitamin C) 1,000 mg tablet 1,000 mg PO DAILY 90 Days Qty: 90 0RF doxazosin 4 mg tablet 4 mg PO BEDTIME 30 Days Qty: 30 0RF finasteride 5 mg tablet 5 mg PO DAILY 90 Days Qty: 90 0RF diphenoxylate-atropine [Lomotil] 2.5-0.025 mg tablet 1 tab PO DAILY PRN (Reason: diarrhea) Qty: 4 0RF docusate sodium 250 mg capsule 250 mg PO BID PRN (Reason: constipation) Qty: 10 0RF ciprofloxacin HCl 500 mg tablet 500 mg PO BID Qty: 20 0RF gabapentin 800 mg tablet 800 mg PO BID metoprolol succinate 200 mg tablet extended release 24 hr 200 mg PO DAILY aspirin [Adult Aspirin Regimen] 81 mg tablet,delayed release (DR/EC) 81 mg PO DAILY melatonin 5 mg tablet 10 mg PO BEDTIME PRN (Reason: insomnia) pantoprazole 20 mg tablet,delayed release (DR/EC) 20 mg PO DAILY alcohol swabs [Alcohol Prep Pads] Pads, Medicated topical DAILY (DME) FreeStyle Lite Strips Strip See Rx Instructions Not Applicable DAILY Qty: 10 Rx Instructions: As directed latanoprost 0.005 % drops 1 drp ophthalmic (eye) BEDTIME (DME) lancets [TRUEplus Lancets] 33 gauge misc See Rx Instructions Not Applicable DAILY Qty: 100 Rx Instructions: As directed insulin glargine [Lantus Solostar U-100 Insulin] 100 unit/mL (3 mL) insulin pen 30 unit subcut multivitamin Tablet 1 tab PO DAILY spironolacton-hydrochlorothiaz 25-25 mg tablet 1 tab PO DAILY Synjardy XR 12.5-1,000 mg tablet, IR - ER, biphasic 24hr 2 tab PO QAM amlodipine 10 mg tablet 10 mg PO DAILY Trulicity 4.5 mg/0.5 mL pen injector subcut pravastatin 40 mg tablet 40 mg PO DAILY polyethylene glycol 3350 [Miralax] 17 gram/dose powder 238 g PO ONCE 1 Days Qty: 238 0RF Rx Instructions: Take as directed by mouth the day before your procedure. bisacodyl 5 mg tablet,delayed release (DR/EC) 5 mg PO ONCE 1 Days Qty: 3 0RF Rx Instructions: per colonoscopy instructions acetaminophen 500 mg tablet 500 mg PO Q6H PRN (Reason: mild pain) methenamine hippurate 1 gram tablet 1 g PO DAILY 90 Days Qty: 90 1RF Referrals: [facility] [Provider Group, Urology] [facility], [facility] [Primary Care Provider, Medical] Interventions: ED Discharge Assessment Last Done: 04/02/25 21:22 Discharge Date/Time: 04/02/25 21:44 Print Language: Slovak
--- NOTE | 2025-04-02 16:31 | PC.NURSE ---
Attempted to remove patient's 18 Fr Anaya Catheter with 30cc balloon. Unable to withdraw saline from balloon port- no return noted upon aspiration attempt. Anaya catheter was gently removed and came out without resistance. Balloon not intact upon removal. Photo of catheter sent to MD for review. Patient tolerated procedure without pain. Bladder scan showed 246mls. Patient will attempt to provide urine sample.
[2025-04-02 16:53] LABS: MANUAL DIFF FLAG NO
[2025-04-02 17:02] LABS: Hematocrit 40.7 % (42.0-52.0); Hemoglobin 13.8 g/dl (14.0-18.0); Imm Gran Abs Auto 0.04 X10*3/uL (0.00-0.03); Imm Gran Pct Auto 0.5 % (0.0-0.4); Lymphocytes Absolute Auto 1.6 X10*3/uL (1.2-4.9); Mean Corpuscular HGB Conc 33.9 g/dl (31.0-36.0); Mean Corpuscular Hemoglobin 28.2 pg (27.0-33.0); Mean Corpuscular Volume 83.2 fL (80.0-98.0); NRBC Abs Auto 0.000 X10*3/uL (0.0-0.012); NRBC Pct Auto 0.0 /100WBC (0.0-0.2); Platelet Count 252 X10*3/uL (160-400); Red Blood Count 4.89 X10*6/uL (4.60-5.80); White Blood Count 8.1 X10*3/uL (4.8-10.8)
[2025-04-02 17:08] LABS: Anion Gap 16 (12-20); Blood Urea Nitrogen 36 mg/dL (9-16); Calcium 9.6 mg/dL (8.4-10.2); Carbon Dioxide 23 mmol/L (22-29); Chloride 103 mmol/L (96-108); Creatinine Clr Calc Pharmacy 46.5; Estimated Glomerular Filt Rate 39; Potassium 5.5 mmol/L (3.3-5.1); Sodium 136 mmol/L (135-145)
[2025-04-02 18:43] VITALS: BP 121/65; PULSE 65; RESP 16; TEMP 36.4; O2SAT 97
[2025-04-02 19:17] VITALS: BP 128/71; PULSE 67; RESP 16; TEMP 36.7; O2SAT 97
[2025-04-02] MEDS: Lidocaine HCl 2 % Urojet 10 ML JEL.PF.APP TOPICAL (19:20)
[2025-04-02 20:16] LABS: Appearance Urine Turbid; Glucose Urine UA >=1000 mg/dL (Negative); PH 5.5 (5.0-9.0); Specific Gravity - Urine 1.025 (1.005-1.025); UMIC TRIGGER UACC YES
[2025-04-02 21:21] VITALS: BP 130/76; PULSE 77; RESP 18; TEMP 36.9; O2SAT 96
[2025-04-02 21:22] VITALS: BP 130/76; PULSE 77; RESP 18; TEMP 36.9; O2SAT 96
--- NOTE | 2025-04-02 21:22 | PC.NURSE ---
pt provided with a leg bag per request
[2025-04-02 21:30] LABS: UACC Culture Trigger YES
== END 2025-04-02 21:44 | disposition home or self-care (01) ==
PROVIDERS: Physician Assistant Medical; Emergency Provider Emergency Medicine; PCP Registered Nurse
DX: N39.0 Urinary tract infection, site not specified (principal); R10.23 Pelvic and perineal pain bilateral; Z79.899 Other long term (current) drug therapy
CPT/HCPCS: 36415; 74176; 80048; 81001; 85025; 87086; 87088; 87147; 99284

== ENCOUNTER → 2025-04-02 17:11 | Outpatient (BNV) | payer OTHER, SELFPAY | PROVIDERS: Emergency Provider Emergency Medicine; PCP Registered Nurse; Visit Provider Student in an Organized Health Care Education/Training Program | DX: Z03.823 Encounter for observation for suspected inserted (injected) foreign body ruled out (principal); N32.89 Other specified disorders of bladder | CPT/HCPCS: 74176 ==

== ENCOUNTER 2025-04-03 12:05 | Emergency (ER) | payer OTHER, SELFPAY ==
[2025-04-03 12:43] VITALS: BP 107/55; PULSE 67; RESP 18; TEMP 36.1; O2SAT 98; BMI 28.5
--- NOTE | 2025-04-03 12:44 | ED.GENADULT ---
HPI - General Adult General Chief complaint: Urogenital-Male Stated complaint: catheter not working Time Seen by Provider: 04/03/25 17:34 Source: patient Mode of arrival: ambulatory Limitations: no limitations History of Present Illness ED Provider: HPI narrative: Patient just had Anaya catheter replaced last night, states was not draining, he has chronic indwelling catheter, no other complaints. Related Data Home Medications ?Medication ?Instructions ?Recorded ?Confirmed aspirin 81 mg tablet,delayed 81 mg PO DAILY 03/29/20 01/31/25 release (Adult Aspirin Regimen) gabapentin 800 mg tablet 800 mg PO BID 03/29/20 01/31/25 metoprolol succinate 200 mg 200 mg PO DAILY 03/29/20 01/31/25 tablet,extended release 24 hr alcohol swabs (Alcohol Prep Pads) pad topical DAILY 08/29/21 01/31/25 blood sugar diagnostic (FreeStyle #10 ea 08/29/21 01/31/25 Lite Strips) lancets 33 gauge (TRUEplus Lancets) #100 ea 08/29/21 01/31/25 latanoprost 0.005 % eye drops 1 drp ophthalmic (eye) BEDTIME 08/29/21 01/31/25 melatonin 5 mg tablet 10 mg PO BEDTIME PRN insomnia 08/29/21 01/31/25 pantoprazole 20 mg tablet,delayed 20 mg PO DAILY 08/29/21 01/31/25 release amlodipine 10 mg tablet 10 mg PO DAILY 02/25/24 01/31/25 dulaglutide 4.5 mg/0.5 mL mg subcut 02/25/24 01/31/25 subcutaneous pen injector (Trulicity) pravastatin 40 mg tablet 40 mg PO DAILY 02/25/24 01/31/25 acetaminophen 500 mg tablet 500 mg PO Q6H PRN mild pain 10/05/24 01/31/25 empagliflozin 12.5 mg-metformin ER 2 tab PO QAM 01/18/25 01/31/25 1,000 mg tablet,extended rel 24 hr (Synjardy XR) insulin glargine 100 unit/mL (3 30 unit subcut 01/18/25 01/31/25 mL) subcutaneous pen (Lantus Solostar U-100 Insulin) multivitamin 1 tab PO DAILY 01/18/25 01/31/25 spironolactone 25 1 tab PO DAILY 01/18/25 01/31/25 mg-hydrochlorothiazide 25 mg tablet Previous Rx's ?Medication ?Instructions ?Recorded diphenoxylate-atropine 2.5 1 tab PO DAILY PRN diarrhea #4 tabs 01/21/21 mg-0.025 mg tablet (Lomotil) docusate sodium 250 mg capsule 250 mg PO BID PRN constipation #10 09/01/24 caps bisacodyl 5 mg tablet,delayed 5 mg PO ONCE 1 day #3 tabs 09/16/24 release polyethylene glycol 3350 17 238 g PO ONCE laxative effect 1 09/16/24 gram/dose oral powder (Miralax) day #238 grams methenamine hippurate 1 gram tablet 1 g PO DAILY 90 days #90 tabs 11/23/24 ciprofloxacin HCl 500 mg tablet 500 mg PO BID #20 tabs 12/08/24 sodium zirconium cyclosilicate 5 5 g PO DAILY #11 ea 01/19/25 gram oral powder packet (Lokelma) ascorbic acid (vitamin C) 1,000 mg 1,000 mg PO DAILY 90 days #90 tabs 02/20/25 tablet doxazosin 4 mg tablet 4 mg PO BEDTIME 30 days #30 tabs 02/20/25 finasteride 5 mg tablet 5 mg PO DAILY 90 days #90 tabs 02/20/25 cefpodoxime 200 mg tablet 200 mg PO BID 7 days #14 tabs 04/02/25 Allergies Allergy/AdvReac Type Severity Reaction Status Date / Time No Known Allergies (No Known Allergy Verified 04/03/25 12:45 Allergies*) Review of Systems Constitutional: Constitutional: Reports as per [facility] Past Medical History Medical History Osteomyelitis DM2 (diabetes mellitus, type 2) Essential hypertension Right lumbar radiculopathy Arthritis of both knees Balanitis Type 2 diabetes mellitus with polyneuropathy Hyperlipidemia LDL goal <100 Obesity due to excess calories Type 2 diabetes mellitus with hyperglycemia, with long-term current use of insulin Surgical History H/O colonoscopy Hx of tonsillectomy Hx of appendectomy Family History Family History Father No problems noted. 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 Abd: ?Bowel sounds are present, no tenderness no rebound no rigidity : Anaya catheter insertion is clean and dry, with gentle flushing it started draining, no hematuria ? ?MSK: FROM, strength 5/5 all extremities ? Skin: Warm, dry, intact, ? ?Neuro: ?Alert and oriented x3, moving upper and lower extremities symmetrically, no obvious facial asymmetry noted, cranial nerves 2-12 intact Vital Signs: Vital Signs - 24 hr 04/03/25 12:43 04/03/25 17:35 Temperature 97.0 F Pulse Rate 67 63 Respiratory Rate 18 18 Blood Pressure 107/55 L 146/73 H Pulse Oximetry 98 97 Oxygen Delivery Method Room Air Room Air BMI result Body Mass Index 28.5 Course Course Course Narrative: Rapid medical examination performed in triage by Macie Durand PA-C: Patient is a 64 year old assigned male at presenting to the emergency department with concerns about his catheter. Patient states he was seen here yesterday and had his catheter replaced and now the new one is not working. Detailed physical exam and review of systems are deferred to the pathology technician. Bladder scan ordered. Patient placed back in the waiting room pending room availability and results. Medical Decision Making Medical Decision Making [facility] Narrative: 5:44 PM 04/03/2025 (Dr. Philippe Yoo): Anaya catheter had to be gently flushed and it started draining he was seen here last night and catheter was replaced what she has had for 3 weeks prior to that, no other issues or concerns Differential Diagnosis Differential Diagnoses: The differential diagnosis associated with the presentation includes (UTI, hematuria, catheter displacement) Discharge Plan Discharge Clinical Impression: Complication of Anaya catheter Patient Disposition: Home, Self-Care Additional Instructions: Anaya catheter was flushed it is working well at the time of the discharge, continue your regular care and follow up, continue antibiotics, a dose was given in the ER , next dose tomorrow. Prescriptions: No Action Lokelma 5 gram powder in packet 5 g PO DAILY Qty: 11 0RF ascorbic acid (vitamin C) 1,000 mg tablet 1,000 mg PO DAILY 90 Days Qty: 90 0RF doxazosin 4 mg tablet 4 mg PO BEDTIME 30 Days Qty: 30 0RF finasteride 5 mg tablet 5 mg PO DAILY 90 Days Qty: 90 0RF diphenoxylate-atropine [Lomotil] 2.5-0.025 mg tablet 1 tab PO DAILY PRN (Reason: diarrhea) Qty: 4 0RF docusate sodium 250 mg capsule 250 mg PO BID PRN (Reason: constipation) Qty: 10 0RF ciprofloxacin HCl 500 mg tablet 500 mg PO BID Qty: 20 0RF cefpodoxime 200 mg tablet 200 mg PO BID 7 Days Qty: 14 0RF Rx Instructions: must administer with a meal/food gabapentin 800 mg tablet 800 mg PO BID metoprolol succinate 200 mg tablet extended release 24 hr 200 mg PO DAILY aspirin [Adult Aspirin Regimen] 81 mg tablet,delayed release (DR/EC) 81 mg PO DAILY melatonin 5 mg tablet 10 mg PO BEDTIME PRN (Reason: insomnia) pantoprazole 20 mg tablet,delayed release (DR/EC) 20 mg PO DAILY alcohol swabs [Alcohol Prep Pads] Pads, Medicated topical DAILY (DME) FreeStyle Lite Strips Strip See Rx Instructions Not Applicable DAILY Qty: 10 Rx Instructions: As directed latanoprost 0.005 % drops 1 drp ophthalmic (eye) BEDTIME (DME) lancets [TRUEplus Lancets] 33 gauge misc See Rx Instructions Not Applicable DAILY Qty: 100 Rx Instructions: As directed insulin glargine [Lantus Solostar U-100 Insulin] 100 unit/mL (3 mL) insulin pen 30 unit subcut multivitamin Tablet 1 tab PO DAILY spironolacton-hydrochlorothiaz 25-25 mg tablet 1 tab PO DAILY Synjardy XR 12.5-1,000 mg tablet, IR - ER, biphasic 24hr 2 tab PO QAM amlodipine 10 mg tablet 10 mg PO DAILY Trulicity 4.5 mg/0.5 mL pen injector subcut pravastatin 40 mg tablet 40 mg PO DAILY polyethylene glycol 3350 [Miralax] 17 gram/dose powder 238 g PO ONCE 1 Days Qty: 238 0RF Rx Instructions: Take as directed by mouth the day before your procedure. bisacodyl 5 mg tablet,delayed release (DR/EC) 5 mg PO ONCE 1 Days Qty: 3 0RF Rx Instructions: per colonoscopy instructions acetaminophen 500 mg tablet 500 mg PO Q6H PRN (Reason: mild pain) methenamine hippurate 1 gram tablet 1 g PO DAILY 90 Days Qty: 90 1RF Print Language: Frisian
[2025-04-03 17:35] VITALS: BP 146/73; PULSE 63; RESP 18; O2SAT 97
--- OUTSIDE RECORDS SUMMARY | 2025-04-03 17:42 | XMS_ITS | Encounter Summary ---
Author Organization [employer] Address [address] [facility] 7 [place] [address] Care Team Providers Care Front Facer Name Role Phone Annia [facility] Primary Care Provider [phone] Elena Nichosl PharmD Unavailable [phone] Reason for Visit * Reason Comments Med Refill Encounter Details Date Type Department Care Team ([facility] st Contact Info) Description 07/01/2023 Refill [facility] [address] [place] [address] [place] [facility] [address] [place] [address] Primary osteoarthritis of right knee Social History [...] documented as of this encounter Care Teams Front Facer Relationship Specialty Start Date End Date Tg Milner FNP [address] [place] [address] PCP - General Family Medicine 04/28/22 Elena Nichols PharmD [address] [place] [address] Pharmacist Pharmacy 12/13/24 documented as of this encounter
--- OUTSIDE RECORDS SUMMARY | 2025-04-03 17:42 | XMS_ITS | Encounter Summary ---
Author Organization [employer] Address [address] 7[address] [place] [address] Care Team Providers Care Operations Officer Afloat Name Role Phone Tg Milner ENROLLED AGENT Primary Care Provider [phone] Elena Nichols PharmD Unavailable [phone] Encounter Details Date Type Department Care Team ([facility] st Contact Info) Description 04/17/2023 Abstract [facility] MEDICINE [address] [place] [address] [place] Social History Tobacco Use Types [...] documented as of this encounter Care Teams Operations Officer Afloat Relationship Specialty Start Date End Date Tg Milner FNP [address] [place] [address] PCP - General Family Medicine 04/28/22 Elena Nichols PharmD [address] [place] [address] Pharmacist Pharmacy 12/13/24 documented as of this encounter
--- OUTSIDE RECORDS SUMMARY | 2025-04-03 17:42 | XMS_ITS | Encounter Summary ---
Author Organization [employer] Address [address] [facility] 7t [place] [address] Care Team Providers Care Director Clinical Applications Name Role Phone Annia [facility] Primary Care Provider [phone] Elena Nichols PharmD Unavailable [phone] Reason for Visit * Reason Comments Med Refill Encounter Details Date Type Department Care Team ([facility] Contact Info) Description 08/31/2024 Refill [facility] MED[facility] [address] [place], [place] [phone] [place] [facility] [address] [place] [address] Primary hypertension Social History Tobacco Use Types [...] as of this encounter Care Teams Director Clinical Applications Relationship Specialty Start Date End Date Tg Milner FNP [address] [place] [address] PCP - General Family Medicine 04/28/22 Elena Nichols PharmD [address] [place] [address] Pharmacist Pharmacy 12/13/24 documented as of this encounter
--- OUTSIDE RECORDS SUMMARY | 2025-04-03 17:42 | XMS_ITS | Clinical Summary ---
Author Organization [address] [place] [address] Address [address] [place] [address] Phone Care Team Providers Care Museum Guide Name Role Phone [facility] Primary Care Provider [phone] Allergies No known active allergies Medications acetaminophen [...] mmol/L LAB CHEMISTRY METHOD 09/12/2024 8:05 PM [facility] Potassium 4.3 3.5 - 5.5 mmol/L LAB CHEMISTRY METHOD 09/12/2024 8:05 PM [facility] Chloride 100 96 - 110 mmol/L LAB CHEMISTRY METHOD 09/12/2024 8:05 PM [facility] CO2 25 21 - 32 mmol/L LAB CHEMISTRY METHOD 09/12/2024 8:05 PM [facility] Anion Gap 7 3 - 11 LAB CHEMISTRY METHOD 09/12/2024 8:05 PM [facility] Glucose 216(H) 70 - 100 mg/dL LAB CHEMISTRY METHOD 09/12/2024 8:05 PM [facility] BUN 31(H) 5 - 25 mg/dL LAB CHEMISTRY METHOD 09/12/2024 8:05 PM [facility] Creatinine 1.87(H) 0.70 - 1.30 mg/dL LAB CHEMISTRY METHOD 09/12/2024 8:05 PM EDT [facility] eGFR 39(L) >=60 mL/min/1. 73m2 LAB CHEMISTRY METHOD 09/12/2024 8:05 PM EDT [facility] Comment:Calculation based on the Chronic Kidney Disease Epidemiology Collaboration (CKD-EPI) equation refit without adjustment for race. BUN/Creatinine Ratio 16.6 LAB CHEMISTRY METHOD 09/12/2024 8:05 PM EDT [facility] Calcium 9.7 8.5 - 10.5 mg/dL LAB CHEMISTRY METHOD 09/12/2024 8:05 PM EDT [facility] Blood Venous blood specimen / Unknown Venipuncture / Unknown 09/12/2024 7:05 PM EDT 09/12/2024 7:34 PM EDT us Paloma Perry MD LAB BLOOD ORDERABLES Fin al Result [facility] [address] [place] [address], from Last 3 Months or Most Recently Relevant to Health Maintenance Insurance [facility] [employer] Member Subscriber Plan / Payer (Ef fective 2024-Present) Name:Brandt Nelson Relation to Subscriber:Self Name:Brandt Nelson Payer ID:[id number] Group ID:Not on file Type:Not on file Address: [address] [place] [address] Care Teams Museum Guide Relationship Specialty Start Date End Date Annia Tg [address] [facility] [address] [place] [address] PCP - General 01/05/24
--- OUTSIDE RECORDS SUMMARY | 2025-04-03 17:42 | XMS_ITS | Encounter Summary ---
Author Organization [employer] Address [address] [place] [address] Care Team Providers Care Veterinary Practice Manager Name Role Phone Annia [facility] Primary Care Provider [phone] Elena Nichols PharmD Unavailable [phone] Encounter Details Date Type Department Care Team ([facility] st Contact Info) Description 02/22/2025 Orders Only [facility] [address] [place] [address] [place] [facility] [address] [place] [address] Dyspepsia (Primary Dx) Social History Tobacco Use [...] documented as of this encounter Care Teams Veterinary Practice Manager Relationship Specialty Start Date End Date Tg Milner FNP [address] [place] [address] PCP - General Family Medicine 04/28/22 Elena Nichols PharmD [address] [place] [address] Pharmacist Pharmacy 12/13/24 documented as of this encounter
--- OUTSIDE RECORDS SUMMARY | 2025-04-03 17:43 | XMS_ITS | Encounter Summary ---
Author Organization [employer] Address [address] [place] [address] [address] [address] Care Team Providers Care Brood Hatchery Manager Name Role Phone Annia [facility] Primary Care Provider [phone] Elena Nichols PharmD Unavailable [phone] Reason for Visit * Reason Comments Med Refill Encounter Details Date Type Department Care Team ([facility] st Contact Info) Description 12/25/2022 Refill [facility] [address] [place], [place] [phone] [place] [facility] [address] [place] [address] Type 2 diabetes mellitus without complication, without long-term current use of insulin ([facility]) Social History Tobacco Use Types [...] complication, without long-term current use of insulin ([facility]) documented in this encounter Additional Health Concerns Assessment Noted Time PHQ-9 Depression Total Score: 0 11/25/19 23 3:32 PM EDT documented as of this encounter Care Teams Brood Hatchery Manager Relationship Specialty Start Date End Date Tg Milner, [employer] [address] [place] [address] PCP - General Family Medicine 04/28/22 Elena Nichols PharmD [address] [place] [address] Pharmacist Pharmacy 12/13/24 documented as of this encounter
--- OUTSIDE RECORDS SUMMARY | 2025-04-03 17:43 | XMS_ITS | Encounter Summary ---
Author Organization [employer] Address [address] [place] [address] 7 [place] [address] Care Team Providers Care Cloth Inspector Name Role Phone Annia [facility] Primary Care Provider [phone] Elena Nichols PharmD Unavailable [phone] Reason for Visit * Reason Comments Med Refill Encounter Details Date Type Department Care Team ([facility] st Contact Info) Description 12/22/2022 Refill [facility] [address] [place], [place] [phone] [place] [facility] [address] [place] [address] Primary hypertension Social History Tobacco Use Types [...] documented as of this encounter Care Teams Cloth Inspector Relationship Specialty Start Date End Date [place] KRISTY Mas [address] [place] [address] PCP - General Family Medicine 04/28/22 Elena Nichols, [place] [address] [place] [address] Pharmacist Pharmacy 12/13/24 documented as of this encounter
--- OUTSIDE RECORDS SUMMARY | 2025-04-03 17:43 | XMS_ITS | Encounter Summary ---
Author Organization [employer] [facility] Address [address] [place] [address] [address] [address] Care Team Providers Care Bus Operator Name Role Phone Tg Milner [facility] Primary Care Provider [phone] Elena Nichols PharmD Unavailable [phone] Encounter Details Date Type Department Care Team (Late st Contact Info) Description 06/03/2022 Telephone [facility] MEDICINE [address] [place] [address] Tg Milner [facility] [address] [place] [address] Social History Tobacco Use Types Packs/Day Years [...] on filedocumented in this encounter Care Teams Bus Operator Relationship Specialty Start Date End Date Tg MilnerKRISTY [address] [place] [address] PCP - General Family Medicine 04/28/22 Elena Nichols, GaleD [address] [place] [address] Pharmacist Pharmacy 12/13/24 documented as of this encounter
--- OUTSIDE RECORDS SUMMARY | 2025-04-03 17:43 | XMS_ITS | Encounter Summary ---
Author Organization [employer] Address [address] [place] [address] 7 [place] [address] Care Team Providers Care Solid Surface Fabricator Name Role Phone Tg Milner DESK ASSISTANT Primary Care Provider [phone] Elena Nichols PharmD Unavailable [phone] Reason for Referral * Consultation (Routine) - Authorized Specialty Diagnoses / Procedures Referred By Contac t Referred To Contact Pharmacy Diagnoses Type 2 diabetes mellitus with other circulatory complication, with long-term current use of insulin (HCC) Jennifer Quinn MD [address] [place] [address] Phone: tel: fax: Referral ID Status Reason Start Date Expiration Date Visits Requested Visits Authorized [id number] Authorized Consult and Treat 2024 2025 6 6 Encounter Details Date Type Department Care Team ([facility] st Contact Info) Description 2024 Orders Only [facility] MED[facility] [address] [place] [address] [phone] Jennifer Quinn MD [address] [place] [address] [phone] Type 2 diabetes mellitus with other circulatory [...] complication, with long-term current use of insulin ([facility]) Ordered: 2024 documented as of this encounter Visit Diagnoses Diagnosis Type 2 diabetes mellitus with other circulatory complication, with long-term current use of insulin ([facility])- Primary documented in this encounter Additional Health Concerns Assessment Noted Time PHQ-9 Depression Total Score: 8 10/20/19 25 11:47 AM EDT documented as of this encounter Care Teams Solid Surface Fabricator Relationship Specialty Start Date End Date Tg Milner FNP [address] [place] [address] PCP - General Family Medicine 04/28/22 Elena Nichols, PharmD [address] [place] [address] Pharmacist Pharmacy 12/13/24 documented as of this encounter
--- OUTSIDE RECORDS SUMMARY | 2025-04-03 17:43 | XMS_ITS | Encounter Summary ---
Author Organization [employer] Address [address] [facility] 7t [place] [address] Care Team Providers Care Sales Representative Education Courses Name Role Phone Tg Milner KICK BOXER Primary Care Provider [phone] Elena Nichols PharmD Unavailable [phone] Encounter Details Date Type Department Care Team ([facility] st Contact Info) Description 04/02/2025 Orders Only GENERIC EXTERNAL DATA DEPARTMENT Provider, [...] as of this encounter Plan of Treatment Pending Results Name Type Priority Associated Diagnoses Date /Time Culture, Urine, Routine Microbiology Routine 04/02/2025 12:00 AM EDT documented as of this encounter Procedures Procedure Name Priority Date/Time Associated Diagnosis Comments URINALYSIS, COMPLETE, WITH REFLEX TO CULTURE Routine 04/02/2025 8:[address] ABDOMEN PELVIS WO CONTRAST Routine 04/02/2025 8:05 PM EST CBC WITH AUTO DIFFERENTIAL Routine 04/02/2025 4:49 PM EST BASIC METABOLIC PANEL Routine 04/02/2025 4:49 PM EST CULTURE, URINE, ROUTINE Routine 04/02/2025 12:00 AM EDT documented in this encounter Results * (ABNORMAL) Urinalysis, Complete, with Reflex to Culture (04/02/2025 8:06 PM EST) Color Urine Yellow [facility] Appearance Urine Turbid [facility] PH 5.5 5.0 - 9.0 [facility] Glucose Urine UA >=1000(A) Negative mg/dL [facility] Urine Blood Large (3+)(A) Negative [facility] Specific [place] - Urine 1.025 1.005 - 1.025 [facility] Urine Protein 300 (3+)(A) Neg-Trace mg/dL [facility] Urine Ketones Negative Negative mg/dL [facility] Nitrite Urine Negative Negative [facility] Leukocyte Esterase Urine Large (3+)(A) Negative [facility] RBC Urine 6-10(A) 0 - 2 /HPF [facility] Urine WBC >50(A) 0 - 5 /HPF [facility] Urine Squamous Epithelial Cell 3-5 0 - 2 /HPF [facility] Urine Bacteria 1+ None Seen [facility] Hyaline Casts, Urine 3-5 0 - 2 /LPF [facility] Urine Yeast Present [facility] 04/02/2025 8:06 PM EST 04/02/2025 8:10 PM EST Narrative [facility] - 04/02/2025 9:32 PM EST [id number], [place] us Generic External Data Provider LAB URINE ORDERAB LES Final Result Performing Organization Address City/State/[facility] Co de Phone Number [facility] [address] [place] [phone] * CT Abdomen Pelvis w/o Contrast (04/02/2025 8:05 PM EST) Anatomical Region Laterality Modality Body, Pelvis, Abdomen Computed T omography 04/02/2025 8:05 PM EST Narrative 04/02/2025 8:07 PM EST [address] [address] [address] Scan Report Signed Patient: Brandt Nelson MR#: [id number] : 1960 Acct:[id number] Age/Sex: 64 / M ADM Date: 04/02/25 Loc: HO.ED Attending Dr: Ordering Physician: Elbert Graf MD Date of Service: 04/02/25 Procedure(s): CT abdomen pelvis wo IV con Accession Number(s): [id number] cc: Elbert Graf MD; Tg Milenr KICK BOXER Report Number: [id number]: Total DLP = 0.00 mGy-cm Reason for Exam: ?fragments of burst bo ballon in bladder/hematu CLINICAL HISTORY: ?fragments of burst bo ballon in bladder hematu CT abdomen and pelvis without contrast Comparison: CT/SR - CT ABDOMEN PELVIS W IV CON - 09/01/24 21:07 EDT Findings: No consolidation or effusion. Unremarkable gallbladder and solid organs. No urolithiasis. Mild bilateral perinephric stranding. No bowel obstruction, pneumoperitoneum, or pneumatosis. Moderate circumferential wall thickening of the urinary bladder with small amount of free air. Radiopaque material is noted within the urinary bladder. Moderate surrounding soft tissues stranding is present. Normal appendix. The bones are intact. IMPRESSION: Moderate circumferential wall thickening of the urinary bladder with surrounding soft tissue stranding, concerning for cystitis. Moderate amount of free air within the urinary bladder, likely represent recent catheterization versus emphysematous cystitis. Mild bilateral perinephric stranding concerning for ascending urinary tract infection. Correlate clinically. No radiopaque material is seen within the urinary bladder. This document has been electronically signed by: Sony Cardenas MD on 04/02/2025 20:05:21 Dictated By: Sony Cardenas MD Signed By: <Electronically signed by Sony Cardenas MD in OV> 04/02/252005 DD/ 04 TD/TT: 04/02/252004 [place] [employer]: Procedure Note Donotuseinterpreter, Image - 04/02/[address] [place] [address] [address] Scan Report Signed Patient: Brandt Nelson#: [id number] : 9Acct:[id number] Age/Sex: 64 / MADM Date: 04/02/25 Loc: HO.ED Attending Dr: Ordering Physician: Elbert Graf MD Date of Service: 04/02/25 Procedure(s): CT abdomen pelvis wo IV con Accession Number(s): [id number] cc: Elbert Graf MD; [facility] Report Number: [id number]: Total DLP = 0.00 mGy-cm Reason for Exam: ?fragments of burst bo ballon in bladder/hematu CLINICAL HISTORY: ?fragments of burst bo ballon in bladder hematu CT abdomen and pelvis without contrast Comparison: CT/SR - CT ABDOMEN PELVIS W IV CON - 09/01/24 21:07 EDT Findings: No consolidation or effusion. Unremarkable gallbladder and solid organs. No urolithiasis. Mild bilateral perinephric stranding. No bowel obstruction, pneumoperitoneum, or pneumatosis. Moderate circumferential wall thickening of the urinary bladder with small amount of free air. Radiopaque material is noted within the urinary bladder. Moderate surrounding soft tissues stranding is present. Normal appendix. The bones are intact. IMPRESSION: Moderate circumferential wall thickening of the urinary bladder with surrounding soft tissue stranding, concerning for cystitis. Moderate amount of free air within the urinary bladder, likely represent recent catheterization versus emphysematous cystitis. Mild bilateral perinephric stranding concerning for ascending urinary tract infection. Correlate clinically. No radiopaque material is seen within the urinary bladder. This document has been electronically signed by: Sony Cardenas MD on 04/02/2025 20:05:21 Dictated By: Sony Cardenas MD Signed By: <Electronically signed by Sony Cardenas MD in OV> 04/02/252005 DD/ 04 TD/TT: 04/02/252004 [place] [employer]: [facility] External Provider IMG CT PROCEDURES Edited Result - Final * (ABNORMAL) Basic Metabolic Panel (04/02/2025 4:49 PM EST) Sodium 136 135 - 145 mmol/L [facility] Potassium 5.5(H) 3.3 - 5.1 mmol/L [facility] Chloride 103 96 - 108 mmol/L [facility] Carbon Dioxide 23 22 - 29 mmol/L [facility] Anion Gap 16 12 - 20 [facility] Urea Nitrogen (BUN) 36(H) 9 - 16 mg/dL [facility] Creatinine, Serum 1.77(H) 0.5 - 1.4 mg/dL [facility] Creatinine Clr Calc Pharmacy 46.5 [facility] Comment:eGFR (calculated fro m the MDRD study equation) and eCrCl(calculated from the Cockcroft-Gault equation) are based ondifferent parameters and may not yield comparable results.If eCrCl result is absurd, please check patient'sheight/weight. Estimated Glomerular Filt Rate 39 [facility] Comment:Chronic Kidney Disea se: Estimated GFR < 60 mL/min/1.51x7Jfhnxe Kidney Disease: Estimated GFR < 15 mL/min/1.73m2 Glucose 171(H) 60 - 115 mg/dL [facility] Calcium 9.6 8.4 - 10.2 mg/dL [facility] 04/02/2025 4:49 PM EST 04/02/2025 4:52 PM EST us Generic External Data Provider LAB BLOOD ORDERAB LES Final Result [facility] [address] [place] [address] [phone] * (ABNORMAL) CBC auto differential (04/02/2025 4:49 PM EST) White Blood Count 8.1 4.8 - 10.8 X10*3/uL [facility] Red Blood Count 4.89 4.60 - 5.80 X10*6/uL [facility] Hemoglobin 13.8(L) 14.0 - 18.0 g/dl [facility] Hematocrit 40.7(L) 42.0 - 52.0 % [facility] Mean Corpuscular Volume 83.2 80.0 - 98.0 fL [facility] Mean Corpuscular Hemoglobin 28.2 27.0 - 33.0 pg [facility] Mean Corpuscular HGB Conc 33.9 31.0 - 36.0 g/dl [facility] Red Cell Distribution Width 12.9 11.0 - 16.0 % [facility] Platelet Count 252 160 - 400 X10*3/uL [facility] Mean Platelet Volume 9.4 9.4 - 12.4 fL [facility] Neutrophils Percent Auto 66.5 45 - 73 % [facility] Imm Gran Pct Auto 0.5(H) 0.0 - 0.4 % [facility] Lymphocytes Percent Auto 19.6(L) 20 - 40 % [facility] Monocytes Percent Auto 10.5 2 - 11 % [facility] Eosinophils Percent Auto 2.5 0 - 4 % [facility] Basophils Percent Auto 0.4 0 - 2 % [facility] NRBC Pct Auto 0.0 0.0 - 0.2 /100WBC [facility] Neutrophils Absolute Auto 5.4 2.0 - 8.3 x10*3/uL [facility] Imm Gran Abs Auto 0.04(H) 0.00 - 0.03 X10*3/uL [facility] Lymphocytes Absolute Auto 1.6 1.2 - 4.9 X10*3/uL [facility] Monocytes Absolute Auto 0.9 0.1 - 1.2 X10*3/uL [facility] Eosinophils Absolute Auto 0.2 0.0 - 0.4 X10*3/uL [facility] Basophils Absolute Auto 0.0 0.0 - 0.2 X10*3/uL [facility] NRBC Abs Auto 0.000 0.0 - 0.012 X10*3/uL [facility] 04/02/2025 4:49 PM EST 04/02/2025 4:52 PM EST us Generic External Data Provider LAB BLOOD ORDERAB LES Final Result Performing Organization Address City/State/[facility] Co de Phone Number [facility] [address] [place] [address] [phone] documented in this encounter Visit Diagnoses Not on filedocumented in this encounter Additional Health Concerns Assessment Noted Time PHQ-9 Depression Total Score: 0 01/12/20 25 2:08 PM EDT documented as of this encounter Care Teams Sales Representative Education Courses Relationship Specialty Start Date End Date Tg Milner FNP [address] [place] [address] PCP - General Family Medicine 04/28/22 Elena Nichols PharmD [address] [place] [address] Pharmacist Pharmacy 12/13/24 documented as of this encounter
--- OUTSIDE RECORDS SUMMARY | 2025-04-03 17:43 | XMS_ITS | Encounter Summary ---
Author Organization [employer] Address [address] [facility] 7 [place] [address] Care Team Providers Care Correctional Maintenance Technician Name Role Phone [facility] Primary Care Provider [phone] Elena Nichols PharmD Unavailable [phone] Reason for Visit * Reason Comments Med Refill Encounter Details Date Type Department Care Team ([facility] Contact Info) Description 02/16/2025 Refill [facility] [address] [place], [place] [phone] [facility] [address] [place] [address] Gastroesophageal reflux disease, unspecified whether esophagitis present [...] documented as of this encounter Care Teams Correctional Maintenance Technician Relationship Specialty Start Date End Date Tg Milner FNP [address] [place] [address] PCP - General Family Medicine 04/28/22 Elena Nichols PharmD [address] [place] [address] Pharmacist Pharmacy 12/13/24 documented as of this encounter
--- OUTSIDE RECORDS SUMMARY | 2025-04-03 17:43 | XMS_ITS | Encounter Summary ---
Author Organization [employer] Address [address] [place] [address] Care Team Providers Care Human Resources Associate Name Role Phone Tg Milner [facility] Primary Care Provider [phone] Elena Nichols PharmD Unavailable [phone] Reason for Visit * Reason Comments Med Refill Encounter Details Date Type Department Care Team ([facility] st Contact Info) Description 06/18/2022 Refill [facility] [address] [place], [place] [phone] Tg Milner [facility] [address] [place] [address] Type 2 diabetes mellitus without complication, without long-term current use of insulin ([facility]) Social History Tobacco Use [...] complication, without long-term current use of insulin ([facility]) documented in this encounter Care Teams Human Resources Associate Relationship Specialty Start Date End Date Tg Milner FNP [address] [place] [address] PCP - General Family Medicine 04/28/22 Elena Nichols, GaleD [address] [place] [phone] Pharmacist Pharmacy 12/13/24 documented as of this encounter
--- OUTSIDE RECORDS SUMMARY | 2025-04-03 17:43 | XMS_ITS | Encounter Summary ---
Author Organization [employer] Address [address] [place] [address] 7 [place] [address] Care Team Providers Care Director Of Community Center Name Role Phone [facility] Primary Care Provider [phone] Elena Nichols PharmD Unavailable [phone] Reason for Visit * Reason Onset Date Comments Medication Question 05/06/2022 new script 05/06/2022 Encounter Details Date Type Department Care Team ([facility] st Contact Info) Description 05/06/2022 Telephone [facility] [address] [place] [address] [facility] [address] [place] [address] Medication Question; new script Social History Tobacco [...] (HCC) documented in this encounter Care Teams Director Of Community Center Relationship Specialty Start Date End Date Tg Milner FNP [address] [place] [address] PCP - General Family Medicine 04/28/22 Elena Nichols PharmD [address] [place] [address] Pharmacist Pharmacy 12/13/24 documented as of this encounter
--- OUTSIDE RECORDS SUMMARY | 2025-04-03 17:43 | XMS_ITS | Encounter Summary ---
Author Organization [employer] [facility] Address [address] [place] [address] 7 [place] [address] Care Team Providers Care Technician Assistant Name Role Phone Tg Milner RESIDENTIAL SUPPORT SPECIALIST Primary Care Provider [phone] Elena Nichols PharmD Unavailable [phone] Encounter Details Date Type Department Care Team (Late st Contact Info) Description 07/10/2022 Orders Only [facility] [address] [place] [address] Chante Mackey LPN Social History Tobacco Use [...] on filedocumented in this encounter Care Teams Technician Assistant Relationship Specialty Start Date End Date Tg MilnerKRISTY [address] [place] [phone] PCP - General Family Medicine 04/28/22 Elena Nichols, PharmD [address] [place] [address] Pharmacist Pharmacy 12/13/24 documented as of this encounter
--- OUTSIDE RECORDS SUMMARY | 2025-04-03 17:43 | XMS_ITS | Encounter Summary ---
Author Organization [employer] Address [address] [facility] 7t [place] [address] Care Team Providers Care Production Tool Engineer Name Role Phone Tg Milner [employer] Primary Care Provider [phone] Elena Nichols PharmD Unavailable [phone] Reason for Visit * Reason Comments Med Refill Encounter Details Date Type Department Care Team ([facility] st Contact Info) Description 10/04/2024 Refill [facility] [address] [place] [address] Melisa Jacob MD [address] [place] [address] Pain in right lumbar region of back; [...] as of this encounter Care Teams Production Tool Engineer Relationship Specialty Start Date End Date Tg Milner FNP [address] [place] [address] PCP - General Family Medicine 04/28/22 Elena Nichols PharmD [address] [place] [address] Pharmacist Pharmacy 12/13/24 documented as of this encounter
--- OUTSIDE RECORDS SUMMARY | 2025-04-03 17:43 | XMS_ITS | Encounter Summary ---
Author Organization [employer] Address [address] [facility] [address]t [place] [address] Care Team Providers Care Hospital Corpsman Name Role Phone Tg Milner [facility] Primary Care Provider [phone] Elena Nichols PharmD Unavailable [phone] Encounter Details Date Type Department Care Team ([facility] st Contact Info) Description 01/16/2025 Telephone [facility] [address] [place], [place] [phone] [facility] [address] [place] [address] Social History Tobacco Use Types Packs/Day Years [...] today's appointment. Requesting a call back at [phone] documented in this encounter Plan of Treatment Not on file documented as of this encounter Visit Diagnoses Not on filedocumented in this encounter Additional Health Concerns Assessment Noted Time PHQ-9 Depression Total Score: 0 01/12/20 25 2:08 PM EDT documented as of this encounter Care Teams Hospital Corpsman Relationship Specialty Start Date End Date Tg Milner FNP [address] [place] [address] PCP - General Family Medicine 04/28/22 Elena Nichols PharmD [address] [place] [address] Pharmacist Pharmacy 12/13/24 documented as of this encounter
--- OUTSIDE RECORDS SUMMARY | 2025-04-03 17:43 | XMS_ITS | Clinical Summary ---
Author Organization [employer] Address [address] [facility] [address] [facility] [address] [place] [address] Care Team Providers Care Milling Machine Set Up Operator Name Role Phone Tg Milner OYSTER PLANTER Primary Care Provider [phone] Elena Nichols PharmD Unavailable [phone] Allergies No known active allergies Medications latanoprost [...] disease, with long-term current use of insulin ([facility]) Inject 5 mg under the skin 1 (one) time per week. 2 mL 11 Active Continuous Glucose Sensor ([employer] G7 Sensor) [facility] APPLY 1 Sensor AND [...] disease, with long-term current use of insulin ([facility]) Inject 16 units subcutaneous daily 15 mL [...] disease, with long-term current use of insulin ([facility]) Inject 36 units subcutaneous daily 15 mL [...] disease, with long-term current use of insulin ([facility]) Inject 10 units subcutaneous daily 15 mL 2024 Discontinued insulin glargine (Lantus SoloStar) 100 UNIT/ML penIndications:Ty pe 2 diabetes mellitus with stage 3b chronic kidney disease, with long-term current use of insulin ([facility]) Inject 10 units subcutaneous daily 15 mL 025 2024 Discontinued(R eorder (will not trigger notification to Pharmacy)) insulin glargine (Lantus SoloStar) 100 UNIT/ML penIndications:Ty pe 2 diabetes mellitus with stage 3b chronic kidney disease, with long-term current use of insulin ([facility]) Inject 12 units subcutaneous daily 15 mL [...] venous insufficiency 06/14/2018 Overview (11/26/2022): Followed by [facility] vascular Compression stockings Pain managed with gabapeentin 800mg t.i.d Followed by [facility] wound care for venous stasis ulcer Assessment [...] Foot Exam: 07/2023--RISK 1 Eye Exam: Through [facility]. UTD Statin: Yes ASA: Yes GISELA/ARB: [...] Encounters Date Type Department Care Team Description 04/02/2025 Orders Only GENERIC EXTERNAL DATA DEPARTMENT Provider, Generic External Data 03/27/2025 Telephone [facility] [address] [place] [address] Elena Nichols PharmD 03/24/2025 Telephone [facility] [address] [place], [place] [phone] Elena Nichols PharmD 03/24/2025 Travel 03/21/2025 3:00 PM EDT Telemedicine [facility] [address] [place] [phone] Elena Nichols PharmD Diabetic polyneuropathy associated with type 2 diabetes mellitus (HCC) (Primary Dx); Type 2 diabetes mellitus with stage 3b chronic kidney disease, with long-term current use of insulin (HCC); Mixed hyperlipidemia 03/15/2025 Refill [facility] [address] [place] [address] Tg Milner FNP Constipation, unspecified constipation type 03/01/2025 Orders Only [facility] External Provider, [facility] 02/27/2025 4:00 PM EDT Office Visit [facility] [address] [place] [phone] Ingrid Lynn NP Vertigo (Primary Dx); Chronic ulcer of great toe of left foot, unspecified ulcer stage (CMS/HCC) 02/27/[address] [address] Tg Milner FNP Nurse Triage 02/27/2025 Travel 02/24/[address] [address] Tg Milner FNP Provider out 03/0102/22/2025 Orders Only [facility] [address] [place] [address] Tg Milner FNP Dyspepsia (Primary Dx) 02/20/2025 Travel 02/16/2025 4:00 PM EDT Office Visit [facility] [address] [place] [phone] Melisa Jacob MD Acute midline low back pain without sciatica (Primary Dx) 02/16/2025 Orders Only [facility] [address] [place] [phone] Melisa Jacob MD 02/16/2025 Refill [facility] [address] [place] [address] Tg Milner FNP Gastroesophageal reflux disease, unspecified whether esophagitis present 02/16/2025 Travel 02/08/2025 Refill [facility] [address] [place] [address] Annia KRISTY Mas Mixed hyperlipidemia 02/06/2025 Refill [facility] [address] [facility] [place] [place] [address] Tg Milner FNP Type 2 diabetes mellitus with other circulatory complication, without long-term current use of insulin (CMS/[facility]) 02/01/2025 Refill [facility] [address] [place] [address] Tg Milner FNP Pain in right lumbar region of back; Right flank pain 01/31/2025 Refill [facility] [address] [place] [address] Tg Milner FNP Primary osteoarthritis of right knee 01/23/2025 Refill [facility] [address] [place] [address] Tg Milner FNP Constipation, unspecified 01/18/2025 Orders Only GENERIC EXTERNAL DATA DEPARTMENT Provider, Generic External Data 01/16/2025 Telephone [facility] [address] [place] [address] Tg Milner FNP 01/12/[address] [address] Heidi Silva, RN Care Coordination 01/11/2025 2:00 PM EDT Office Visit [address] [address] Tg Milner FNP Preoperative clearance (Primary Dx); Type 2 diabetes mellitus with stage 3b chronic kidney disease, with long-term current use of insulin ([facility]); Urinary retention; Right bundle branch block 01/11/2025 Travel 01/10/2025 Telephone [facility] [address] [place] [address] Tg Milner FNP Chart Prep 01/09/[address] [address] Tg Milner FNP Pre Op 01/04/2025 Travel [...] kg (209 lb 9.6 oz) 02/27/2025 3:49 PM EDT Height 177.8 cm (5' 10 [...] topic Meningococcal Vaccine Aged Out No ashli lsisette eligible based on patient's age to complete [...] WO CONTRAST Routine 04/02/2025 8:05 PM EST BASIC METABOLIC PANEL Routine 04/02/2025 4:49 PM EST CBC WITH AUTO DIFFERENTIAL Routine 04/02/2025 4:49 PM EST CULTURE, URINE, ROUTINE Routine 04/02/2025 12:00 AM EDT XR FOOT 3+ VIEWS LEFT Routine 03/01/2025 [...] Reflex to Culture (04/02/2025 8:06 PM EST) Only the most recent of2 resultswithin the time period is included. Color Urine Yellow [facility] Appearance Urine Turbid [facility] PH 5.5 5.0 - 9.0 [facility] Glucose Urine UA >=1000(A) Negative mg/dL [facility] Urine Blood Large (3+)(A) Negative [facility] Specific [place] - Urine 1.025 1.005 - 1.025 [facility] Urine Protein 300 (3+)(A) Neg-Trace mg/dL [facility] Urine Ketones Negative Negative mg/dL [facility] Nitrite Urine Negative Negative [facility] Leukocyte Esterase Urine Large (3+)(A) Negative [facility] RBC Urine 6-10(A) 0 - 2 /HPF [facility] Urine WBC >50(A) 0 - 5 /HPF [facility] Urine Squamous Epithelial Cell 3-5 0 - 2 /HPF [facility] Urine Bacteria 1+ None Seen [facility] Hyaline Casts, Urine 3-5 0 - 2 /LPF [facility] Urine Yeast Present [facility] 04/02/2025 8:06 PM EST 04/02/2025 8:10 PM EST Narrative [facility] - 04/02/2025 9:32 PM EST [id number], [place] us Generic External Data Provider LAB URINE ORDERAB LES Final Result Performing Organization Address City/State/[facility] Co de Phone Number [facility] [address] [place] [phone] * CT Abdomen Pelvis w/o Contrast (04/02/2025 8:05 PM EST) Anatomical Region Laterality Modality Body, Pelvis, Abdomen Computed T omography 04/02/2025 8:05 PM EST Narrative 04/02/2025 8:07 PM EST [address] [address] [address] Scan Report Signed Patient: Brandt Nelson MR#: [id number] : 1960 Acct:[id number] Age/Sex: 64 / M ADM Date: 04/02/25 Loc: HO.ED Attending Dr: Ordering Physician: Elbert Graf MD Date of Service: 04/02/25 Procedure(s): CT abdomen pelvis wo IV con Accession Number(s): [id number] cc: Elbert Graf MD; [facility] Report Number: [id number]: Total DLP = 0.00 mGy-cm Reason for [...] in OV> 04/02/252005 DD/ 04 TD/TT: 04/02/252004 Core Baker: Procedure Note Donotuseinterpreter, Image - 04/02/[address] [place] [address] [address] Scan Report Signed Patient: Brandt Nelson#: [id number] : 9Acct:[id number] Age/Sex: 64 / MADM Date: 04/02/25 Loc: HO.ED Attending Dr: Ordering Physician: Elbert Graf MD Date of Service: 04/02/25 Procedure(s): CT abdomen pelvis wo IV con Accession Number(s): [id number] cc: Elbert Graf MD; [facility] Report Number: [id number]: Total DLP = 0.00 mGy-cm Reason for [...] in OV> 04/02/252005 DD/ 04 TD/TT: 04/02/252004 Core Baker: [facility] External Provider IMG CT PROCEDURES Edited Result - Final * (ABNORMAL) CBC auto differential (04/02/2025 4:49 PM EST) White Blood Count 8.1 4.8 - 10.8 X10*3/uL [facility] Red Blood Count 4.89 4.60 - 5.80 X10*6/uL [facility] Hemoglobin 13.8(L) 14.0 - 18.0 g/dl [facility] Hematocrit 40.7(L) 42.0 - 52.0 % [facility] Mean Corpuscular Volume 83.2 80.0 - 98.0 fL [facility] Mean Corpuscular Hemoglobin 28.2 27.0 - 33.0 pg [facility] Mean Corpuscular HGB Conc 33.9 31.0 - 36.0 g/dl [facility] Red Cell Distribution Width 12.9 11.0 - 16.0 % [facility] Platelet Count 252 160 - 400 X10*3/uL [facility] Mean Platelet Volume 9.4 9.4 - 12.4 fL [facility] Neutrophils Percent Auto 66.5 45 - 73 % [facility] Imm Gran Pct Auto 0.5(H) 0.0 - 0.4 % [facility] Lymphocytes Percent Auto 19.6(L) 20 - 40 % [facility] Monocytes Percent Auto 10.5 2 - 11 % [facility] Eosinophils Percent Auto 2.5 0 - 4 % [facility] Basophils Percent Auto 0.4 0 - 2 % [facility] NRBC Pct Auto 0.0 0.0 - 0.2 /100WBC [facility] Neutrophils Absolute Auto 5.4 2.0 - 8.3 x10*3/uL [facility] Imm Gran Abs Auto 0.04(H) 0.00 - 0.03 X10*3/uL [facility] Lymphocytes Absolute Auto 1.6 1.2 - 4.9 X10*3/uL [facility] Monocytes Absolute Auto 0.9 0.1 - 1.2 X10*3/uL [facility] Eosinophils Absolute Auto 0.2 0.0 - 0.4 X10*3/uL [facility] Basophils Absolute Auto 0.0 0.0 - 0.2 X10*3/uL [facility] NRBC Abs Auto 0.000 0.0 - 0.012 X10*3/uL [facility] 04/02/2025 4:49 PM EST 04/02/2025 4:52 PM EST us Generic External Data Provider LAB BLOOD ORDERAB LES Final Result [facility] [address] [place] [phone] * (ABNORMAL) Basic Metabolic Panel (04/02/2025 4:49 PM EST) Only the most recent of2 resultswithin the time period is included. Sodium 136 135 - 145 mmol/L [facility] Potassium 5.5(H) 3.3 - 5.1 mmol/L [facility] Chloride 103 96 - 108 mmol/L [facility] Carbon Dioxide 23 22 - 29 mmol/L [facility] Anion Gap 16 12 - 20 [facility] Urea Nitrogen (BUN) 36(H) 9 - 16 mg/dL [facility] Creatinine, Serum 1.77(H) 0.5 - 1.4 mg/dL [facility] Creatinine Clr Calc Pharmacy 46.5 [facility] Comment:eGFR (calculated fro m the MDRD study equation) and eCrCl(calculated from the Cockcroft-Gault equation) are based ondifferent parameters and may not yield comparable results.If eCrCl result is absurd, please check patient'sheight/weight. Estimated Glomerular Filt Rate 39 [facility] Comment:Chronic Kidney Disea se: Estimated GFR < 60 mL/min/1.97r6Pxswyo Kidney Disease: Estimated GFR < 15 mL/min/1.73m2 Glucose 171(H) 60 - 115 mg/dL [facility] Calcium 9.6 8.4 - 10.2 mg/dL [facility] 04/02/2025 4:49 PM EST 04/02/2025 4:52 PM EST us Generic External Data Provider LAB BLOOD ORDERAB LES Final Result [facility] [address] [place] [phone] * XR Foot 3+ Views Left (03/01/2025 4:08 PM EDT) Anatomical Region Laterality Modality Lower Extremities, Foot Left Radiogra phic Imaging 03/01/2025 4:08 PM EDT Narrative 03/02/2025 8:25 AM EDT [facility] [address] [place] [address] XRay Report Signed Patient: Brandt Nelson MR#: [id number] : 1960 Acct:[id number] Age/Sex: 64 / M ADM Date: 03/01/25 Loc: HO.[facility] Attending Dr: Moira Issa MD Ordering Physician: Moira Issa MD Date of Service: 03/01/25 Procedure(s): XR foot LT min 3V Accession Number(s): [id number] cc: Moira Issa MD; [facility] Reason for Exam: NON HEALING WOUND EXAMINATION: [...] Les Muro MD 03/02/2025 08:22 AM EDT Dictated By: Les Muro MD Signed By: <Electronically signed by Les Muro MD in OV> 03/02/25 0822 DD/ 1608 TD/TT: 03/01/25 1610 Core Baker: Procedure Note Donotuseinterpreter, Image - 03/02/2025 [facility] [address] [place] [address] XRay Report Signed Patient: Brandt Nelson#: MM [id number] : 1960cct:[id number] Age/Sex: 64 / MADM Date: 03/01/25 Loc: HO.[facility] Attending Dr: Moira Issa MD Ordering Physician: Moira Issa MD Date of Service: 03/01/25 Procedure(s): XR foot LT min 3V Accession Number(s): [id number] cc: Moira Issa MD; [facility] OYSTER PLANTER Reason for Exam: NON HEALING WOUND EXAMINATION: [...] 03/02/25 0822 DD/ 1608 TD/TT: 03/01/25 1610 Core Baker: [facility] External Provider IMG XR PROCEDURES Edited Result - Final * Culture, Urine, Routine (02/16/2025 8:38 PM EDT) Urine Urine specimen obtained by clean catch procedure / Unknown 02/16/2025 8:38 PM EDT 02/16/2025 8:38 PM EDT Comment:UACC Narrative [facility] - 02/20/2025 9:37 AM EDT Strep agalactiae (Grp B) Quant 50,000 to 100,000 cfu/mL Susc N/A Susceptibility not routinely performed on this isolate. Viviana albicans Quant 10,000 to 50,000 cfu/mL Specimen Source: Urine clean catch Melisa Jacob MD LAB MICROBIOLOGY - GENERAL ORDERABLES Final Result [facility] [address] [place] [phone] * XR Lumbar Spine 2-3 Views (02/16/2025 4:14 PM EDT) Anatomical Region Laterality Modality Spine, L-spine Radiographic Cheryl ging 02/16/2025 4:14 PM EDT Narrative 02/16/2025 4:45 PM EDT [facility] [address] [place] [address] XRay Report Signed Patient: Brandt Nelson MR#: [id number] : 1960 Acct:[id number] Age/Sex: 64 / M ADM Date: 02/16/25 Loc: HO.[facility] Attending Dr: Melisa Jacob MD Ordering Physician: Melisa Jacob MD Date of Service: 02/16/25 Procedure(s): XR lumbar spine 2-3V Accession Number(s): [id number] cc: Melisa Jacob MD Reason for Exam: [...] OV> 02/16/25 1642 DD/ 1614 TD/TT: 02/16/25 161 Core Baker: Procedure Note Donotuseinterpreter, Image - 02/16/[address] [address] XRay Report Signed Patient: Brandt NelsonMR#: MM [id number] : 9Acct:[id number] Age/Sex: 64 / MADM Date: 02/16/25 Loc: HO.[facility]HCX Attending Dr: Melisa Jacob MD Ordering Physician: Melisa Jacob MD Date of Service: 02/16/25 Procedure(s): XR lumbar spine 2-3V Accession Number(s): [id number] cc: Melisa Jacob MD Reason for Exam: [...] 02/16/25 1642 DD/ 1614 TD/TT: 02/16/25 1615 Core Baker: us Melisa Jacob MD IMG XR PROCEDURES Final Re sult * (ABNORMAL) Urinalysis Complete (01/18/2025 2:13 PM EDT) Color Urine Yellow [facility] Appearance Urine Turbid [facility] PH 6.0 5.0 - 9.0 [facility] Glucose Urine UA >=1000(A) Negative mg/dL [facility] Urine Blood Moderate (2+)(A) Negative [facility] Specific [place] - Urine >=1.030(H) 1.005 - 1.025 [facility] Urine Protein 30 (1+)(A) Neg-Trace mg/dL [facility] Urine Ketones Negative Negative mg/dL [facility] Nitrite Urine Negative Negative [facility] Leukocyte Esterase Urine Moderate (2+)(A) Negative [facility] RBC Urine 11-20(A) 0 - 2 /HPF [facility] Urine WBC >50(A) 0 - 5 /HPF [facility] Urine Squamous Epithelial Cell 6-10 0 - 2 /HPF [facility] Urine Bacteria 2+ None Seen [facility] Hyaline Casts, Urine 0-2 0 - 2 /LPF [facility] Urine Yeast Present [facility] 01/18/2025 2:13 PM EDT 01/18/2025 5:20 PM EDT us Generic External Data Provider LAB URINE ORDERAB LES Final Result [facility] [address] [place], [place] [phone] * (ABNORMAL) CBC (01/18/2025 2:13 PM EDT) White Blood Count 7.1 4.8 - 10.8 X10*3/uL [facility] Red Blood Count 4.96 4.60 - 5.80 X10*6/uL [facility] Hemoglobin 13.9(L) 14.0 - 18.0 g/dl [facility] Hematocrit 41.8(L) 42.0 - 52.0 % [facility] Mean Corpuscular Volume 84.3 80.0 - 98.0 fL [facility] Mean Corpuscular Hemoglobin 28.0 27.0 - 33.0 pg [facility] Mean Corpuscular HGB Conc 33.3 31.0 - 36.0 g/dl [facility] Red Cell Distribution Width 13.3 11.0 - 16.0 % [facility] Platelet Count 229 160 - 400 X10*3/uL [facility] Mean Platelet Volume 11.2 9.4 - 12.4 fL [facility] NRBC Pct Auto 0.0 0.0 - 0.2 /100WBC [facility] NRBC Abs Auto 0.000 0.0 - 0.012 X10*3/uL [facility] 01/18/2025 2:13 PM EDT 01/18/2025 5:16 PM EDT Generic External Data Provider LAB BLOOD ORDERAB LES Final Result [facility] [address] [place] [phone] * ECG 12 lead (01/12/2025 9:04 AM EDT) Narrative [facility] - 01/12/2025 9:04 AM EDT Sinus rhythm. New partial RBB not present in prior tracing. See scanned report [employer] ECG ORDERABLES Final Result * (ABNORMAL) POCT Glucose (01/11/2025 2:08 PM EDT) [facility] Glucose Blood, POC 296(A) 60 - 200 mg/dL QC Media Lot # [id number] Lot# Expiration Date ,540,492 Blood Capillary blood specimen / Unknown 01/11/2025 2:08 PM EDT [employer] POINT OF CARE TEST ENTER/EDIT ORDERABLES Final Result * (ABNORMAL) POCT HGB A1C (01/11/2025 2:07 PM EDT) Hemoglobin A1C 10.4(A) 4.0 - 5.7 % [employer] Lot # [id number] Lot# Expiration Date ,285 Blood 01/11/2025 2:07 PM EDT [employer] POINT OF CARE TEST ENTER/EDIT ORDERABLES Final Result * (ABNORMAL) Lipid Panel, Standard (01/22/2024 10:21 AM EDT) Triglycerides 291(H) <150 mg/dL [facility] Comment:Desirable Triglyceri de: less than 150 mg/dLBorderline High Triglyceride 150-199 mg/dLHigh Triglyceride: 200-499 mg/dLVery High Triglyceride: greater than or equal to 5OO mg/dL Cholesterol 166 <200 mg/dL [facility] Comment:Desirable Cholestero l: less than 200 mg/dLBorderline High Cholesterol: 200-239 mg/dLHigh Cholesterol: greater than 239 mg/dL LDL Cholesterol Calculated 77 <100 mg/dL [facility] Comment:Desirable LDL: less than 100 mg/dLNear Optimal/Above Optimal LDL: 110- 129 mg/dLBorderline High LDL: 130-159 mg/dLHigh LDL: 160-189 mg/dLVery High LDL: greater than or equal to 190 mg/dL HDL Cholesterol 31(L) >40 mg/dL [facility] Comment:Desirable HDL: great er than 40 mg/dL Note: This HDL assay may give artificially low results in patients with liver disease. Blood Venous blood specimen / Unknown 01/22/2024 10:21 AM EDT 01/22/2024 11:05 AM EDT [employer] LAB BLOOD ORDERABLES Final Re sult [facility] [address] [place] [phone] * Hepatitis C Antibody with Reflex to HCV, RNA, Quantitative, Real-Time PCR (09/01/2022 2:59 PM EDT) Hepatitis C Antibody NON-REACT DARY NON-REACT DARY [employer] [place] [facility] Index 0.09 <1.00 [employer] [place] [facility] Comment: HCV antibody was non-reactive. There is no laboratory evidence of HCV infection. In most cases, no further action is required. However, if recent HCV exposure is suspected, a test for HCV RNA (test code 34767) is suggested. For additional information please refer to http://education.Doist/faq/YRB13y0 (This link is being provided for informational/ educational purposes only.) Blood Venous blood specimen / Unknown 09/01/2022 2:59 PM EDT 09/01/2022 2:59 PM EDT [employer] [facility] [employer] LAB BLOOD ORDERABLES Final Re sult Performing Organization Address City/[facility] Co de Phone Number [facility] [address], [facility] [place] [phone] [employer] [place] [employer] [address] [place] [phone] from Last 3 Months or Most Recently Relevant to Health Maintenance Insurance [employer] (HMO D-SNP) [facility] STAND[facility] Care Teams Milling Machine Set Up Operator Relationship Specialty Start Date End Date Tg Milner FNP [address] [place] [address] PCP - General Family Medicine 04/28/22 Elena Nichols PharmD [address] [place] [address] Pharmacist Pharmacy 12/13/24
--- NOTE | 2025-04-03 17:55 | PC.NURSE ---
Flushed catheter with 30cc of saline without difficulty. Immediately drained 500mL milky, turbid urine.
--- NOTE | 2025-04-03 18:00 | PC.NURSE ---
pt was bladder scanned on arrival to ED room 24. He was found to have >500 ml in the bladder. He has an 18F coude 30ml fill cath in place. Irrigated with 50 ml NS and was able to drain 520 ml out of thick cloudy urine. Pt was seen by MD and plan is for discharge home. He disclosed that he has not taken his antibiotics today. Pt was medicated as charted and per his request was rescanned for 0 ml post void/drainage.
[2025-04-03 18:12] VITALS: BP 146/73; PULSE 63; RESP 18; TEMP 36.4; O2SAT 97
== END 2025-04-03 18:12 | disposition home or self-care (01) ==
PROVIDERS: Emergency Provider Emergency Medicine; PCP Registered Nurse
DX: T83.098A Other mechanical complication of other urinary catheter, initial encounter (principal); Y73.2 Prosthetic and other implants, materials and accessory gastroenterology and urology devices associated with adverse incidents; Y92.9 Unspecified place or not applicable; Z79.899 Other long term (current) drug therapy; E11.9 Type 2 diabetes mellitus without complications; Z79.4 Long term (current) use of insulin; Z87.891 Personal history of nicotine dependence
CPT/HCPCS: 99283; 99284

== ENCOUNTER 2025-04-11 08:41 | Emergency (ER) | payer OTHER, SELFPAY ==
[2025-04-11 08:42] VITALS: BP 119/64; PULSE 66; RESP 20; TEMP 36.7; O2SAT 96; BMI 29.4
--- NOTE | 2025-04-11 09:09 | ED.MALEGU ---
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 Patient states he was evaluated at [facility] approximately 1 week ago. He was found to have a urinary tract infection causing urinary retention. He had his Bo catheter changed while there. He states that they did not have the appropriate supplies . He states that he feels he needs a longer tube and bigger bag. He was discharged on antibiotics which she has been taking as prescribed. Reports emptying the bag around 0200 this morning. He awoke around 0300 with lower abdominal pain. He looked at the bag and noticed that there was no urine in it. Reports continued lower abdominal pain with minimal urine output in Bo bag. Denies any estevan blood. Denies fever, chills. Related Data Home Medications ?Medication ?Instructions ?Recorded ?Confirmed aspirin 81 mg tablet,delayed 81 mg PO DAILY 03/29/20 01/31/25 release (Adult Aspirin Regimen) gabapentin 800 mg tablet 800 mg PO BID 03/29/20 01/31/25 metoprolol succinate 200 mg 200 mg PO DAILY 03/29/20 01/31/25 tablet,extended release 24 hr alcohol swabs (Alcohol Prep Pads) pad topical DAILY 08/29/21 01/31/25 blood sugar diagnostic (FreeStyle #10 ea 08/29/21 01/31/25 Lite Strips) lancets 33 gauge (TRUEplus Lancets) #100 ea 08/29/21 01/31/25 latanoprost 0.005 % eye drops 1 drp ophthalmic (eye) BEDTIME 08/29/21 01/31/25 melatonin 5 mg tablet 10 mg PO BEDTIME PRN insomnia 08/29/21 01/31/25 pantoprazole 20 mg tablet,delayed 20 mg PO DAILY 08/29/21 01/31/25 release amlodipine 10 mg tablet 10 mg PO DAILY 02/25/24 01/31/25 dulaglutide 4.5 mg/0.5 mL mg subcut 02/25/24 01/31/25 subcutaneous pen injector (Trulicity) pravastatin 40 mg tablet 40 mg PO DAILY 02/25/24 01/31/25 acetaminophen 500 mg tablet 500 mg PO Q6H PRN mild pain 10/05/24 01/31/25 empagliflozin 12.5 mg-metformin ER 2 tab PO QAM 01/18/25 01/31/25 1,000 mg tablet,extended rel 24 hr (Synjardy XR) insulin glargine 100 unit/mL (3 30 unit subcut 01/18/25 01/31/25 mL) subcutaneous pen (Lantus Solostar U-100 Insulin) multivitamin 1 tab PO DAILY 01/18/25 01/31/25 spironolactone 25 1 tab PO DAILY 01/18/25 01/31/25 mg-hydrochlorothiazide 25 mg tablet Previous Rx's ?Medication ?Instructions ?Recorded diphenoxylate-atropine 2.5 1 tab PO DAILY PRN diarrhea #4 tabs 01/21/21 mg-0.025 mg tablet (Lomotil) docusate sodium 250 mg capsule 250 mg PO BID PRN constipation #10 09/01/24 caps bisacodyl 5 mg tablet,delayed 5 mg PO ONCE 1 day #3 tabs 09/16/24 release polyethylene glycol 3350 17 238 g PO ONCE laxative effect 1 09/16/24 gram/dose oral powder (Miralax) day #238 grams methenamine hippurate 1 gram tablet 1 g PO DAILY 90 days #90 tabs 11/23/24 ciprofloxacin HCl 500 mg tablet 500 mg PO BID #20 tabs 12/08/24 sodium zirconium cyclosilicate 5 5 g PO DAILY #11 ea 01/19/25 gram oral powder packet (Lokelma) ascorbic acid (vitamin C) 1,000 mg 1,000 mg PO DAILY 90 days #90 tabs 02/20/25 tablet doxazosin 4 mg tablet 4 mg PO BEDTIME 30 days #30 tabs 02/20/25 finasteride 5 mg tablet 5 mg PO DAILY 90 days #90 tabs 02/20/25 cefpodoxime 200 mg tablet 200 mg PO BID 7 days #14 tabs 04/02/25 Allergies Allergy/AdvReac Type Severity Reaction Status Date / Time No Known Allergies (No Known Allergy Verified 04/11/25 08:47 Allergies*) Review of Systems Review of Systems: Yes all other systems are reviewed and are negative ON LICENSE OF [facility] Past Medical History Attestation statement: The following information was validated with the patient. Source: old records reviewed and nursing notes reviewed Medical History Osteomyelitis DM2 (diabetes mellitus, type 2) Essential hypertension Right lumbar radiculopathy Arthritis of both knees Balanitis Type 2 diabetes mellitus with polyneuropathy Hyperlipidemia LDL goal <100 Obesity due to excess calories Type 2 diabetes mellitus with hyperglycemia, with long-term current use of insulin Surgical History H/O colonoscopy Hx of tonsillectomy Hx of appendectomy Family History Family History Father No problems noted. 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 Skin: Warm, dry, intact. No rashes or lesions. Head: Normocephalic, atraumatic. EENT: Hearing is intact b/l. Conjunctiva clear. Sclera is anicteric. PERRLA. EOM intact. Moist mucous membranes.? Cardiac: Chest wall symmetric. RRR Lungs: Normal respiratory effort without accessory muscle use. CTA bilaterally Abdomen: Soft, mildly distended, tender to palpation of entire lower abdomen, bladder not palpable. Bo catheter in place, 18f coude, bag strapped to right thigh, approximately 12 cc straw-colored urine in bag, no blood. no obvious clots/ blockages. Back: No midline spinous or paraspinal tenderness. No step off deformity. Ext: Upper and lower extremities atraumatic, without tenderness, deformity, swelling or erythema Neuro: AOx3. Normal speech. Ambulating with steady gait. Psych: Appropriate mood and affect. Responds appropriately to questions. Course Course Course Narrative: 925 -- plan for bladder scan. Will attempt to flush Bo cath. If unable to flush, patient will require a new Bo. 1030 -- Bladder scan showing >900 cc urine. bo flushed, no longer blocked, draining strar colored urine, 500cc urine in bag at the moment. 1300 -- a total of 1000cc urine drained from bo bag. draining appropriately. UA showing UTI, currently on cefpodoxime for treatment. patient no longer having abd discomfort, anxious for dc home. advised f/u with PCP and urologist. Medical Decision Making Medical Decision Making [facility] Narrative: 64 year old male with pmhx significant for HTN, T2DM, urinary retention with indwelling bo catheter presents to the ED today for with concerns of catheter not draining. he is well appearing, in nad. on exam, obese abdomen, soft, mildly distended, tender to palpation of entire lower abdomen, bladder not palpable. Bo catheter in place,18f coude, bag strapped to right thigh, approximately 12 cc straw-colored urine in bag, no blood. no obvious clots/ blockages. Differential diagnosis includes bo cath malfunction, urinary retention, UTI Plan for bladder scan, bo eval, UA, disposition. Differential Diagnosis Differential Diagnoses: The differential diagnosis associated with the presentation includes as above. Admission/Observation not indicated. Lab Data [facility] Lab Attestation statement: I reviewed the patient's lab results. as above. Labs: Lab Results 04/11/25 Range/Units 11:43 Urine Color Yellow Urine Appearance Turbid Urine pH 6.0 (5.0-9.0) Ur Specific [place] 1.020 (1.005-1.025) Urine Protein 100 (2+) H (Neg-Trace) mg/dL Urine Glucose (UA) >=1000 H (Negative) mg/dL Urine Ketones Negative (Negative) mg/dL Urine Blood Large (3+) H (Negative) Urine Nitrite Negative (Negative) Ur Leukocyte Esterase Large (3+) H (Negative) Urine RBC 0-2 (0-2) /HPF Urine WBC >50 H (0-5) /HPF Ur Squamous Epith Cells 0-2 (0-2) /HPF Urine Bacteria None Seen (None Seen) Hyaline Casts 0-2 (0-2) /LPF Urine Yeast Present External Record Review External record reviewed: Inpatient record Prescription Management I considered prescription management with: Antibiotic Social Determinants Patient?s care significantly limited by Social Determinants of Health including: Other Social Determinant of Health Critical Care Time Critical Care Time Critical Care Time: No Discharge Plan Discharge Clinical Impression: Chronic indwelling Bo catheter Patient Disposition: Home, Self-Care Instructions: Bo Catheter Care, Urinary Tract Infection in Men (ED), Bo Catheter Placement and Care (ED) Additional Instructions: You were evaluated in the ED today with concerns that your catheter was not draining. We flushed the catheter and it drained a significant amount of urine. Your catheter is draining. No issues with output. Continue your antibiotics. Follow up with urology. Call their office to schedule an appointment. Return with any new or worsening symptoms. In the case of an emergency call 911. Prescriptions: No Action Lokelma 5 gram powder in packet 5 g PO DAILY Qty: 11 0RF ascorbic acid (vitamin C) 1,000 mg tablet 1,000 mg PO DAILY 90 Days Qty: 90 0RF doxazosin 4 mg tablet 4 mg PO BEDTIME 30 Days Qty: 30 0RF finasteride 5 mg tablet 5 mg PO DAILY 90 Days Qty: 90 0RF diphenoxylate-atropine [Lomotil] 2.5-0.025 mg tablet 1 tab PO DAILY PRN (Reason: diarrhea) Qty: 4 0RF docusate sodium 250 mg capsule 250 mg PO BID PRN (Reason: constipation) Qty: 10 0RF ciprofloxacin HCl 500 mg tablet 500 mg PO BID Qty: 20 0RF cefpodoxime 200 mg tablet 200 mg PO BID 7 Days Qty: 14 0RF Rx Instructions: must administer with a meal/food gabapentin 800 mg tablet 800 mg PO BID metoprolol succinate 200 mg tablet extended release 24 hr 200 mg PO DAILY aspirin [Adult Aspirin Regimen] 81 mg tablet,delayed release (DR/EC) 81 mg PO DAILY melatonin 5 mg tablet 10 mg PO BEDTIME PRN (Reason: insomnia) pantoprazole 20 mg tablet,delayed release (DR/EC) 20 mg PO DAILY alcohol swabs [Alcohol Prep Pads] Pads, Medicated topical DAILY (DME) FreeStyle Lite Strips Strip See Rx Instructions Not Applicable DAILY Qty: 10 Rx Instructions: As directed latanoprost 0.005 % drops 1 drp ophthalmic (eye) BEDTIME (DME) lancets [TRUEplus Lancets] 33 gauge misc See Rx Instructions Not Applicable DAILY Qty: 100 Rx Instructions: As directed insulin glargine [Lantus Solostar U-100 Insulin] 100 unit/mL (3 mL) insulin pen 30 unit subcut multivitamin Tablet 1 tab PO DAILY spironolacton-hydrochlorothiaz 25-25 mg tablet 1 tab PO DAILY Synjardy XR 12.5-1,000 mg tablet, IR - ER, biphasic 24hr 2 tab PO QAM amlodipine 10 mg tablet 10 mg PO DAILY Trulicity 4.5 mg/0.5 mL pen injector subcut pravastatin 40 mg tablet 40 mg PO DAILY polyethylene glycol 3350 [Miralax] 17 gram/dose powder 238 g PO ONCE 1 Days Qty: 238 0RF Rx Instructions: Take as directed by mouth the day before your procedure. bisacodyl 5 mg tablet,delayed release (DR/EC) 5 mg PO ONCE 1 Days Qty: 3 0RF Rx Instructions: per colonoscopy instructions acetaminophen 500 mg tablet 500 mg PO Q6H PRN (Reason: mild pain) methenamine hippurate 1 gram tablet 1 g PO DAILY 90 Days Qty: 90 1RF Referrals: [facility] [Provider Group, Urology] [facility], [facility] [Primary Care Provider, Medical] Interventions: ED Discharge Assessment Last Done: 04/11/25 13:28 Discharge Date/Time: 04/11/25 14:13 Print Language: Sao [place]an
--- OUTSIDE RECORDS SUMMARY | 2025-04-11 09:44 | XMS_ITS | Encounter Summary ---
Author Organization [employer] Address [address] [facility] 7 [place] [address] Care Team Providers Care Wax Ball Knock Out Worker Name Role Phone [facility] Primary Care Provider [phone] Elena Nichols PharmD Unavailable [phone] Reason for Visit * Reason Comments Med Refill Encounter Details Date Type Department Care Team ([facility] Contact Info) Description 04/09/2025 Refill [facility] [address] [place] [address] [facility] [address] [place] [address] Primary hypertension; Obstructive sleep apnea Social History Tobacco Use Types Packs/Day Years [...] Care Team (Late st Contact Info) Description 05/05/2025 1:30 PM EST Office Visit [facility] [address] [place] [address] [place] [facility] [address] [place] [address] documented as of this encounter Visit Diagnoses Diagnosis Primary hypertension Unspecified essential hypertension Obstructive sleep apnea Obstructive sleep apnea (adult) (pediatric) documented in this encounter Additional Health Concerns Assessment Noted Time PHQ-9 Depression Total Score: 0 01/12/20 25 2:08 PM EDT documented as of this encounter Care Teams Wax Ball Knock Out Worker Relationship Specialty Start Date End Date [place] dal[place] [facility] [address] [place] [address] PCP - General Family Medicine 04/28/22 Elena Nichols PharmD [address] [place] [phone] Pharmacist Pharmacy 12/13/24 documented as of this encounter
--- OUTSIDE RECORDS SUMMARY | 2025-04-11 09:44 | XMS_ITS | Encounter Summary ---
Author Organization [employer] [facility] Address [address] [place] [address] [address], [place] [address] Care Team Providers Care Keg Raiser Name Role Phone Annia [facility] Primary Care Provider [phone] Elena Nichols PharmD Unavailable [phone] Encounter Details Date Type Department Care Team ([facility] Contact Info) Description 06/03/2022 Telephone [facility] MEDICINE [address] [place] [phone] [place] [address] [address] Social History Tobacco Use Types Packs/Day Years [...] Department Care Team (Late Contact Info) Description 05/05/2025 1:30 PM EST Office Visit [facility] MEDICINE [address] [place] [address] Annia Tg [facility] [address] [place] [address] documented as of this encounter Visit Diagnoses Not on filedocumented in this encounter Care Teams Keg Raiser Relationship Specialty Start Date End Date Tg Milner [facility] [address] [place] [phone] PCP - General Family Medicine 04/28/22 Elena Nichols, PharmD [address] [place] [address] Pharmacist Pharmacy 12/13/24 documented as of this encounter
--- OUTSIDE RECORDS SUMMARY | 2025-04-11 09:44 | XMS_ITS | Encounter Summary ---
Author Organization [employer] [facility] Address [address] [place] [address] Care Team Providers Care Entry Level Business Analyst Name Role Phone [facility] Primary Care Provider [phone] Elena Nichols PharmD Unavailable [phone] Reason for Visit * Reason Comments Med Refill Encounter Details Date Type Department Care Team ([facility] Contact Info) Description 12/25/[address] [facility] MEDICINE [address] [place] [id number] [id number] Type 2 diabetes mellitus without complication, without long-term current use of insulin ([facility]) Social History Tobacco Use Types [...] Upcoming Encounters Date Type Department Care Team ([facility] Contact Info) Description 05/05/2025 1:30 PM EST Office Visit [facility] MEDICINE [address] [place] [address] [phone] [facility] [address] [place] [address] documented as of this encounter Visit Diagnoses Diagnosis Type 2 diabetes mellitus without complication, without long-term current use of insulin (HCC) documented in this encounter Additional Health Concerns Assessment Noted Time PHQ-9 Depression Total Score: 0 11/25/19 23 3:32 PM EDT documented as of this encounter Care Teams Entry Level Business Analyst Relationship Specialty Start Date End Date Tg Milner [facility] [address] [place] [address] PCP - General Family Medicine 04/28/22 Elena Nichols PharmD [address] [place] [address] Pharmacist Pharmacy 12/13/24 documented as of this encounter
--- OUTSIDE RECORDS SUMMARY | 2025-04-11 09:44 | XMS_ITS | Encounter Summary ---
Author Organization [employer] Address [address] [facility] [address] [place] [address] Care Team Providers Care Detention Deputy Name Role Phone Tg Milner RN [facility] Primary Care Provider [phone] Elena Nichols PharmD Unavailable [phone] Encounter Details Date Type Department Care Team ([facility] st Contact Info) Description 04/17/2023 Abstract [facility]ICINE [address] [place] [address] [employer] Social History Tobacco Use Types [...] Description 05/05/2025 1:30 PM EST Office Visit [facility] [address] [place] [address] [facility] [address] [place] [address] documented as of this encounter Visit Diagnoses Not on filedocumented in this encounter Additional Health Concerns Assessment Noted Time PHQ-9 Depression Total Score: 0 11/25/19 23 3:32 PM EDT documented as of this encounter Care Teams Detention Deputy Relationship Specialty Start Date End Date Tg Milner [facility] [address] [place] [phone] PCP - General Family Medicine 04/28/22 Elena Nichols, Navarro [address] [place] [address] Pharmacist Pharmacy 12/13/24 documented as of this encounter
--- OUTSIDE RECORDS SUMMARY | 2025-04-11 09:44 | XMS_ITS | Encounter Summary ---
Author Organization [employer] Address [address] [facility] 7 [place] [address] Care Team Providers Care Business Services Specialist Sales Name Role Phone Annia [facility] Primary Care Provider Elena Nichols PharmD Unavailable [phone] Reason for Visit * Reason Comments Med Refill Encounter Details Date Type Department Care Team ([facility] st Contact Info) Description 07/01/[address] [facility] MEDICINE [address] [place] [address] [facility] [address] [place] [address] Primary osteoarthritis of right knee Social History [...] Description 05/05/2025 1:30 PM EST Office Visit [facility] MEDICINE [address] [place] [address] Tg Milner FNP [address] [place] [address] documented as of this encounter Visit Diagnoses Diagnosis Primary osteoarthritis of right knee documented in this encounter Additional Health Concerns Assessment Noted Time PHQ-9 Depression Total Score: 0 11/25/19 23 3:32 PM EDT documented as of this encounter Care Teams Business Services Specialist Sales Relationship Specialty Start Date End Date Tg Milner FNP [address] [place] [address] PCP - General Family Medicine 04/28/22 Elena Nichols PharmD [address] [place] [address] Pharmacist Pharmacy 12/13/24 documented as of this encounter
--- OUTSIDE RECORDS SUMMARY | 2025-04-11 09:44 | XMS_ITS | Encounter Summary ---
Author Organization [employer] Address [address] [place] [address] 7 [place] [address] Care Team Providers Care Control Clerk Repairs Name Role Phone Annia [facility] Primary Care Provider Elena Nichols PharmD Unavailable [phone] Reason for Visit * Reason Onset Date Comments Medication Question 05/06/2022 new script 05/06/2022 Encounter Details Date Type Department Care Team ([facility] st Contact Info) Description 05/06/2022 Telephone [facility] MEDICINE [address] [place] [address] [place] [facility] [address] [place] [address] Medication Question; new script Social History Tobacco [...] Description 05/05/2025 1:30 PM EST Office Visit [facility] MEDICINE [address] [place] [address] Tg Milner FNP [address] [place] [address] documented as of this encounter Visit Diagnoses Diagnosis Type 2 diabetes mellitus without complication, without long-term current use of insulin (HCC) documented in this encounter Care Teams Control Clerk Repairs Relationship Specialty Start Date End Date Tg Milner FNP [address] [place] [phone] PCP - General Family Medicine 04/28/22 Elena Nichols PharmD [address] [place] [phone] Pharmacist Pharmacy 12/13/24 documented as of this encounter
--- OUTSIDE RECORDS SUMMARY | 2025-04-11 09:44 | XMS_ITS | Clinical Summary ---
Author Organization [employer] Address [address] [place] [address] 7[address] [place] [address] Care Team Providers Care Lower In Supervisor Name Role Phone Tg Milner TECHNICAL SUPPORT COORDINATOR Primary Care Provider [phone] Elena Nichols PharmD Unavailable [phone] Allergies No known active allergies Medications latanoprost (Xalatan) 0.005 % ophthalmic solution PLACE 1 DROP IN EACH EYE EVERY NIGHT 023 Active triamcinolone (Nasacort) 55 MCG/ACT nasal inhaler INSTILL 2 SPRAYS IN EACH NOSTRIL ONCE DAILY IN THE MORNING 16.9 mL 11 025 Active insulin pen needle 32G x 4 mm miscIndications:T ype 2 diabetes mellitus with stage 3 chronic kidney disease, with long-term current use of insulin, unspecified whether stage 3a or 3b CKD ([facility]) Use as instructed 100 each [...] tablet by mouth Once per day. Active glucose blood (FREESTYLE LITE) test stripIndications: Diabetic polyneuropathy associated with type 2 diabetes mellitus (HCC) Use to test blood sugar up to 3 time(s) daily as needed for CGM failure or rapidly changing BG. 100 strip Active TRUEplus Lancets 33G misc Use to test blood sugar up to 3 time(s) daily as needed for CGM failure or rapidly changing BG. 100 each 11 Active polyethylene glycol, PEG, 3350 (Glycolax) 17 [...] topically tid prn pain 50 g 1 Active cyclobenzaprine (Flexeril) 10 MG tabletIndications :Acute midline low back pain without sciatica One tab po at bedtime prn pain of muscles, do not drive with medicaion 30 tablet Active amLODIPine (Norvasc) 10 MG tabletIndications :Primary hypertension Take 1 tablet (10 mg) by mouth Once per day. 90 tablet 3 025 2025 Active Continuous Glucose Sensor (Dexcom G7 Sensor) misc APPLY 1 Sensor AND CHANGE EVERY 10 DAYS Active Perla-dominguez 8.6 MG tabletIndications :Constipation, unspecified constipation type TAKE 1 TABLET BY MOUTH AT BEDTIME 30 tablet 3 Active Ascorbic Acid (vitamin C) 500 MG [...] by mouth at bedtime. 90 tablet 3 Active Aspirin Low Dose 81 MG EC tabletIndications :Primary hypertension TAKE 1 TABLET BY MOUTH EVERY DAY 90 tablet 3 Active melatonin 5 MG tabletIndications :Obstructive sleep apnea TAKE 2 TABLETS BY MOUTH EVERY DAY AT BEDTIME NEEDED FOR SLEEP 180 tablet 3 Active Tirzepatide (Mounjaro) 7.5 MG/0.5ML solution auto-injectorIndi cations:Type 2 diabetes mellitus with stage 3b chronic kidney disease, with long-term current use of insulin ([facility]) Inject 7.5 mg under the skin 1 (one) time per week. 2 mL 11 Active metFORMIN XR (Glucophage-XR) 500 MG 24 hr tablet Take 2 tablets (1,000 mg) by mouth 2 times daily. Do not crush, chew, or split. 120 tablet 11 2025 Active insulin glargine (Lantus SoloStar) 100 UNIT/ML penIndications:Ty pe 2 diabetes mellitus with stage 3b chronic kidney disease, with long-term current use of insulin ([facility]) Inject 20 units subcutaneous daily 15 mL 11 Active Aspirin Low Dose 81 MG EC tabletIndications :Primary hypertension TAKE 1 TABLET BY MOUTH EVERY DAY 90 tablet 3 024 2024 Discontinued melatonin 5 MG tabletIndications :Obstructive sleep apnea TAKE 2 TABLETS BY MOUTH EVERY DAY AT BEDTIME NEEDED FOR SLEEP 180 tablet 3 024 2024 Discontinued senna (Senokot) 8.6 MG tabletIndications :Constipation, unspecified constipation type Take 1 tablet (8.6 mg) by mouth at bedtime. 120 tablet 025 2024 Discontinued Ascorbic Acid (vitamin C) 1000 MG tablet Take 1,000 mg by mouth Once per day. 2024 Discontinued(M ed list cleanup (will not trigger notification to Pharmacy)) empagliflozin-met FORMIN ER (Synjardy XR) 12.5-1000 MG 24 hr tabletIndications :Type 2 diabetes mellitus with stage 3b chronic kidney disease, with long-term current use of insulin ([facility]) Take 2 tablets by mouth with breakfast. 60 tablet 11 2024 Discontinued(A lternate therapy) pravastatin (Pravachol) 40 MG tabletIndications :Mixed hyperlipidemia Take 1 tablet (40 mg) by mouth at bedtime. 30 tablet 11 2024 Discontinued(R eorder (will not trigger notification to Pharmacy)) Tirzepatide (Mounjaro) 5 MG/0.5ML solution auto-injectorIndi cations:Type 2 diabetes mellitus with stage 3b chronic kidney disease, with long-term current use of insulin ([facility]) Inject 5 mg under the skin 1 (one) time per week. 2 mL 2024 Discontinued(D ose adjustment) insulin glargine (Lantus SoloStar) 100 UNIT/ML penIndications:Ty pe 2 diabetes mellitus with stage 3b chronic kidney disease, with long-term current use of insulin ([facility]) Inject 36 units subcutaneous daily 15 mL 025 2024 Discontinued(R eorder (will not trigger notification to Pharmacy)) glucose 4 g chewable tablet Chew 4 tablets (16 g) if needed for low blood sugar. <70 mg/dL. Recheck BG after 15 mins and repeat treatment as needed & as directed. 20 tablet 1 2024 Discontinued insulin glargine (Lantus SoloStar) 100 UNIT/ML penIndications:Ty pe 2 diabetes mellitus with stage 3b chronic kidney disease, with long-term current use of insulin ([facility]) Inject 10 units subcutaneous daily 15 mL 025 2024 Discontinued insulin glargine (Lantus SoloStar) 100 UNIT/ML penIndications:Ty pe 2 diabetes mellitus with stage 3b chronic kidney disease, with long-term current use of insulin ([facility]) Inject 10 units subcutaneous daily 15 mL 025 2024 Discontinued(R eorder (will not trigger notification to Pharmacy)) insulin glargine (Lantus SoloStar) 100 UNIT/ML penIndications:Ty pe 2 diabetes mellitus with stage 3b chronic kidney disease, with long-term current use of insulin ([facility]) Inject 12 units subcutaneous daily 15 mL 025 2024 Discontinued(R eorder (will not trigger notification to Pharmacy)) insulin glargine (Lantus SoloStar) 100 UNIT/ML penIndications:Ty pe 2 diabetes mellitus with stage 3b chronic kidney disease, with long-term current use of insulin ([facility]) Inject 16 units subcutaneous daily 15 mL 025 2024 Discontinued(R eorder (will not trigger notification to Pharmacy)) Active Problems Problem Noted Date Diagnosed Date Vertigo 02/27/2025 Assessment & Plan (02/27/2025 5:37 PM EDT): Orders: Referral to Physical Therapy; Future Chronic ulcer of great toe of left foot ([facility] ) 02/27/2025 Assessment & Plan (02/27/2025 5:37 [...] venous insufficiency 06/14/2018 Overview (11/26/2022): Followed by [facility] vascular Compression stockings Pain managed with gabapeentin 800mg t.i.d Followed by [facility] wound care for venous stasis ulcer Assessment [...] Foot Exam: 07/2023--RISK 1 Eye Exam: Through [facility]. UTD Statin: Yes ASA: Yes GISELA/ARB: [...] Encounters Date Type Department Care Team Description 04/10/2025 Telephone [facility] [address] [place] [phone] Elena Nichols PharmD 04/10/2025 Patient Outreach [facility] [address] [place] [address] Tg Milner FNP Transition Of Care (Tcm) (HDF scheduled ) 04/09/2025 Refill [facility] [address] [place] [address] Tg Milner FNP Primary hypertension; Obstructive sleep apnea 04/04/2025 Telephone [facility] [address] [place] [address] AnniaTg dalal FNP VNA services 04/02/2025 Orders Only GENERIC EXTERNAL DATA DEPARTMENT Provider, Generic External Data 03/27/2025 Telephone [facility] [address] [place] [phone] Elena Nichols PharmD 03/24/2025 Telephone [facility] [address] [place] [phone] Elena Nichols PharmD 03/24/2025 Travel 03/21/2025 3:00 PM EDT Telemedicine [facility] [address] [place] [phone] Elena Nichols, [place] Diabetic polyneuropathy associated with type 2 diabetes mellitus (HCC) (Primary Dx); Type 2 diabetes mellitus with stage 3b chronic kidney disease, with long-term current use of insulin (HCC); Mixed hyperlipidemia 03/15/2025 Refill [facility] [address] [place] [address] Tg Milner FNP Constipation, unspecified constipation type 03/01/2025 Orders Only [facility] External Provider, [facility] 02/27/2025 4:00 PM EDT Office Visit [facility] [address] [place] [address] Ingrid Lynn, ESTELLA Vertigo (Primary Dx); Chronic ulcer of great toe of left foot, unspecified ulcer stage (CMS/[facility]) 02/27/2025 Telephone [facility] [address] [place] [address] Tg Milner FNP Nurse Triage 02/27/2025 Travel 02/24/2025 Telephone [facility] [address] [place] [address] Tg Milner FNP Provider out 03/0102/22/2025 Orders Only [facility] [address] [address] Tg Milner FNP Dyspepsia (Primary Dx) 02/20/2025 Travel 02/16/2025 4:00 PM EDT Office Visit [facility] [address] [address] Melisa Jacob MD Acute midline low back pain without sciatica (Primary Dx) 02/16/2025 Orders Only [facility] [address] [place] [phone] Melisa Jacob MD 02/16/2025 Refill [facility] [address] [place] [address] Tg Milner FNP Gastroesophageal reflux disease, unspecified whether esophagitis present 02/16/2025 Travel 02/08/2025 Refill [facility] [address] [place], [place] [phone] Tg Milner FNP Mixed hyperlipidemia 02/06/2025 Refill [facility] [address] [place] [address] Tg Milner FNP Type 2 diabetes mellitus with other circulatory complication, without long-term current use of insulin ([facility]) 02/01/2025 Refill [facility] [address] [place] [address] Tg Milner FNP Pain in right lumbar region of back; Right flank pain 01/31/2025 Refill [facility] [address] [place] [address] Tg Milner FNP Primary osteoarthritis of right knee 01/23/2025 Refill [facility] [address] [place] [address] Tg MilnerKRISTY Constipation, unspecified 01/18/2025 Orders Only GENERIC EXTERNAL DATA DEPARTMENT Provider, Generic External Data 01/16/[address] [address] AnniaTg FNP 01/12/[address] [address] Heidi Silva, LANA Care Coordination 01/11/2025 2:00 PM EDT Office Visit [address] [address] McleanTg dalal FNP Preoperative clearance (Primary Dx); Type 2 diabetes mellitus with stage 3b chronic kidney disease, with long-term current use of insulin ([facility]); Urinary retention; Right bundle branch block 01/11/2025 Travel 01/10/[address] [address] Tg Milner FNP Chart Prep 01/09/[address] [address] AnniaTg dalal FNP Pre Op from Last 3 Months Immunizations Immunization Administration [...] Description 05/05/2025 1:30 PM EST Office Visit [facility] [address] [place] [address] Mclean, Tg, TECHNICAL SUPPORT COORDINATOR [address] [place], [place] [phone] Health Maintenance Due Date Last Done Comments [...] 09/01/2022, Additional history exists COVID-19 Vaccine ( - 2023- season) 2025 Influenza Vaccine (#1) 2025 Eye [...] URINE, ROUTINE Routine 04/02/2025 12:00 AM EDT AMB REFERRAL TO WOUND CLINIC STAT 03/23/2025 Chronic ulcer of great toe of left foot, unspecified ulcer stage (CMS/HCC) (HCC) XR FOOT 3+ VIEWS LEFT Routine 03/01/2025 [...] disease, with long-term current use of insulin ([facility]/HCC) POCT GLYCATED HEMOGLOBIN, TOTAL Routine 01/11/2025 2:07 PM EDT Type 2 diabetes mellitus with stage 3b chronic kidney disease, with long-term current use of insulin ([facility]/HCC) LIPID PANEL, STANDARD Routine 01/22/2024 10:21 AM EDT Type 2 diabetes mellitus with hyperglycemia, without long-term current use of insulin ([facility]/H[facility]) HEPATITIS C AB W/REFL TO HCV RNA, QN, PCR Routine 09/01/2022 2:59 PM EDT Healthcare maintenance from Last 3 Months or Most Recently Relevant to Health Maintenance Results * (ABNORMAL) Urinalysis, Complete, with Reflex to Culture (04/02/2025 8:06 PM EST) Only the most recent of2 resultswithin the time period is included. Color Urine Yellow [facility] Appearance Urine Turbid [facility] PH 5.5 5.0 - 9.0 [facility] Glucose Urine UA >=1000(A) Negative mg/dL [facility] Urine Blood Large (3+)(A) Negative [facility] Specific [place] - Urine 1.025 1.005 - 1.025 [facility] Urine Protein 300 (3+)(A) Neg-Trace mg/dL [facility] Urine Ketones Negative Negative mg/dL [facility] Nitrite Urine Negative Negative [facility] Leukocyte Esterase Urine Large (3+)(A) Negative [facility] RBC Urine 6-10(A) 0 - 2 /HPF [facility] Urine WBC >50(A) 0 - 5 /HPF [facility] Urine Squamous Epithelial Cell 3-5 0 - 2 /HPF [facility] Urine Bacteria 1+ None Seen [facility] Hyaline Casts, Urine 3-5 0 - 2 /LPF [facility] Urine Yeast Present [facility] 04/02/2025 8:06 PM EST 04/02/2025 8:10 PM EST Narrative [facility] - 04/02/2025 9:32 PM EST [id number], Bo Port us Generic External Data Provider LAB URINE ORDERAB LES Final Result Performing Organization Address City/State/[facility] Co de Phone Number [facility] [address] [place] [phone] * CT Abdomen Pelvis w/o Contrast (04/02/2025 8:05 PM EST) Anatomical Region Laterality Modality Body, Pelvis, Abdomen Computed T omography 04/02/2025 8:05 PM EST Narrative 04/02/2025 8:07 PM EST [address] [address] [address] Scan Report Signed Patient: Brandt Nelson MR#: [id number] : 1960 Acct:[id number] Age/Sex: 64 / M ADM Date: 04/02/25 Loc: HO.ED Attending Dr: Ordering Physician: Elbert Graf MD Date of Service: 04/02/25 Procedure(s): CT abdomen pelvis wo IV con Accession Number(s): [id number] cc: Elbert Graf MD; [facility] Report Number: [id number]: Total DLP = 0.00 mGy-cm Reason for Exam: ?fragments of burst bo ballon in bladder/hematu CLINICAL HISTORY: ?fragments of burst ob ballon in bladder hematu CT abdomen and [...] in OV> 04/02/252005 DD/ 04 TD/TT: 04/02/252004 [employer] Consultant: Procedure Note Donotuseinterpreter, Image - 04/02/[address] [place] [address] [address] Scan Report Signed Patient: Brandt Nelson#: MM [id number] : 9Acct:[id number] Age/Sex: 64 / MADM Date: 04/02/25 Loc: HO.ED Attending Dr: Ordering Physician: Elbert Graf MD Date of Service: 04/02/25 Procedure(s): CT abdomen pelvis wo IV con Accession Number(s): [id number] cc: Elbert Graf MD; [facility] Report Number: [id number]: Total DLP = 0.00 mGy-cm Reason for [...] in OV> 04/02/252005 DD/ 04 TD/TT: 04/02/252004 [employer] Consultant: [facility] External Provider IMG CT PROCEDURES Edited Result - Final * (ABNORMAL) CBC auto differential (04/02/2025 4:49 PM EST) White Blood Count 8.1 4.8 - 10.8 X10*3/uL [facility] Red Blood Count 4.89 4.60 - 5.80 X10*6/uL [facility] Hemoglobin 13.8(L) 14.0 - 18.0 g/dl [facility] Hematocrit 40.7(L) 42.0 - 52.0 % [facility] Mean Corpuscular Volume 83.2 80.0 - 98.0 fL [facility] Mean Corpuscular Hemoglobin 28.2 27.0 - 33.0 pg [facility] Mean Corpuscular HGB Conc 33.9 31.0 - 36.0 g/dl [facility] Red Cell Distribution Width 12.9 11.0 - 16.0 % [facility] Platelet Count 252 160 - 400 X10*3/uL [facility] Mean Platelet Volume 9.4 9.4 - 12.4 fL [facility] Neutrophils Percent Auto 66.5 45 - 73 % [facility] Imm Gran Pct Auto 0.5(H) 0.0 - 0.4 % [facility] Lymphocytes Percent Auto 19.6(L) 20 - 40 % [facility] Monocytes Percent Auto 10.5 2 - 11 % [facility] Eosinophils Percent Auto 2.5 0 - 4 % [facility] Basophils Percent Auto 0.4 0 - 2 % [facility] NRBC Pct Auto 0.0 0.0 - 0.2 /100WBC [facility] Neutrophils Absolute Auto 5.4 2.0 - 8.3 x10*3/uL [facility] Imm Gran Abs Auto 0.04(H) 0.00 - 0.03 X10*3/uL [facility] Lymphocytes Absolute Auto 1.6 1.2 - 4.9 X10*3/uL [facility] Monocytes Absolute Auto 0.9 0.1 - 1.2 X10*3/uL [facility] Eosinophils Absolute Auto 0.2 0.0 - 0.4 X10*3/uL [facility] Basophils Absolute Auto 0.0 0.0 - 0.2 X10*3/uL [facility] NRBC Abs Auto 0.000 0.0 - 0.012 X10*3/uL [facility] 04/02/2025 4:49 PM EST 04/02/2025 4:52 PM EST us Generic External Data Provider LAB BLOOD ORDERAB LES Final Result [facility] [address], [place] [phone] * (ABNORMAL) Basic Metabolic Panel (04/02/2025 4:49 PM EST) Only the most recent of2 resultswithin the time period is included. Sodium 136 135 - 145 mmol/L [facility] Potassium 5.5(H) 3.3 - 5.1 mmol/L [facility] Chloride 103 96 - 108 mmol/L [facility] Carbon Dioxide 23 22 - 29 mmol/L [facility] Anion Gap 16 12 - 20 [facility] Urea Nitrogen (BUN) 36(H) 9 - 16 mg/dL [facility] Creatinine, Serum 1.77(H) 0.5 - 1.4 mg/dL [facility] Creatinine Clr Calc Pharmacy 46.5 [facility] Comment:eGFR (calculated fro m the MDRD study equation) and eCrCl(calculated from the Cockcroft-Gault equation) are based ondifferent parameters and may not yield comparable results.If eCrCl result is absurd, please check patient'sheight/weight. Estimated Glomerular Filt Rate 39 [facility] Comment:Chronic Kidney Disea se: Estimated GFR < 60 mL/min/1.07q1Xgaxqw Kidney Disease: Estimated GFR < 15 mL/min/1.73m2 Glucose 171(H) 60 - 115 mg/dL [facility] Calcium 9.6 8.4 - 10.2 mg/dL [facility] 04/02/2025 4:49 PM EST 04/02/2025 4:52 PM EST us Generic External Data Provider LAB BLOOD ORDERAB LES Final Result [facility] [address] [place] [phone] * Culture, Urine, Routine (04/02/2025 12:00 AM EDT) Only the most recent of2 resultswithin the time period is included. Urine Urine specimen obtained by clean catch procedure / Unknown 04/02/2025 04/02/2025 Comment:UACC Narrative [facility] - 04/06/2025 8:57 AM EST Strep agalactiae (Grp B) Quant > 100,000 cfu/mL [facility] N/A Susceptibility not routinely performed on this isolate. Viviana albicans Quant 10,000 to 50,000 cfu/mL Specimen Source: Urine clean catch us Generic External Data Provider LAB MICROBIOLOGY - GENERAL ORDERABLES Final Result [facility] [address] [place] [address] [phone] * Referral to Wound Clinic (03/23/2025) us Ingrid Lynn VP PATIENT OUTPATIENT REFERRAL ORDERABLES F inal Result * XR Foot 3+ Views Left (03/01/2025 4:08 PM EDT) Anatomical Region Laterality Modality Lower Extremities, Foot Left Radiogra phic Imaging 03/01/2025 4:08 PM EDT Narrative 03/02/2025 8:25 AM EDT [facility] [address] [place] [address] XRay Report Signed Patient: Brandt Nelson MR#: [id number] : 1960 Acct:[id number] Age/Sex: 64 / M ADM Date: 03/01/25 Loc: [facility] Attending Dr: Moira Issa MD Ordering Physician: Moira Issa MD Date of Service: 03/01/25 Procedure(s): XR foot LT min 3V Accession Number(s): [id number] cc: Moira Issa MD; [facility] Reason for Exam: NON HEALING WOUND [...] 03/02/25 0822 DD/ 1608 TD/TT: 03/01/25 1610 [employer] Consultant: Procedure Note Donotuseinterpreter, Image - 03/02/2025 [facility] [address] [place] [address] XRay Report Signed Patient: Brandt Nelson#: MM [id number] : 9Acct:[id number] Age/Sex: 64 / MADM Date: 03/01/25 Loc: .[facility] Attending Dr: Moira Issa MD Ordering Physician: Moira Issa MD Date of Service: 03/01/25 Procedure(s): XR foot LT min 3V Accession Number(s): [id number] cc: Moira Issa MD; [facility] Reason for Exam: NON HEALING WOUND [...] 03/02/25 0822 DD/ 1608 TD/TT: 03/01/25 1610 [employer] Consultant: [facility] External Provider IMG XR PROCEDURES Edited Result - Final * XR Lumbar Spine 2-3 Views (02/16/2025 4:14 PM EDT) Anatomical Region Laterality Modality Spine, L-spine Radiographic Cheryl ging 02/16/2025 4:14 PM EDT Narrative 02/16/2025 4:45 PM EDT [facility] [address] [place] [address] XRay Report Signed Patient: Brandt Nelson MR#: [id number] : 1960 Acct:[id number] Age/Sex: 64 / M ADM Date: 02/16/25 Loc: HO.HHCX Attending Dr: Meilsa Jacob MD Ordering Physician: Melisa Jacob MD Date of Service: 02/16/25 Procedure(s): XR lumbar spine 2-3V Accession Number(s): [id number] cc: Melisa Jacob MD Reason for Exam: acute low back pain described as 03/10 EXAMINATION: XR LUMBOSACRAL SPINE CLINICAL INFORMATION: acute low back pain described as 10 COMPARISON: None available. TECHNIQUE: Three views of [...] 02/16/25 1642 DD/ 1614 TD/TT: 02/16/25 1615 [employer] Consultant: Procedure Note Donotuseinterpreter, Image - 02/16/2025 [facility] [address] [place] [address] XRay Report Signed Patient: Brandt NelsonMR#: MM [id number] : 9Acct:[id number] Age/Sex: 64 / MADM Date: 02/16/25 Loc: .HHCX Attending Dr: Melisa Jacob MD Ordering Physician: Melisa Jacob MD Date of Service: 02/16/25 Procedure(s): XR lumbar spine 2-3V Accession Number(s): [id number] cc: Melisa Jacob MD Reason for Exam: acute low back pain described as 10 EXAMINATION: XR LUMBOSACRAL SPINE CLINICAL INFORMATION: acute low back pain described as 10/10 COMPARISON: None available. TECHNIQUE: Three views of [...] 02/16/25 1642 DD/ 1614 TD/TT: 02/16/25 1615 [employer] Consultant: us Melisa Jacob MD IMG XR PROCEDURES Final Re sult * (ABNORMAL) Urinalysis Complete (01/18/2025 2:13 PM EDT) Color Urine Yellow [facility] Appearance Urine Turbid [facility] PH 6.0 5.0 - 9.0 [facility] Glucose Urine UA >=1000(A) Negative mg/dL [facility] Urine Blood Moderate (2+)(A) Negative [facility] Specific [place] - Urine >=1.030(H) 1.005 - 1.025 [facility] Urine Protein 30 (1+)(A) Neg-Trace mg/dL [facility] Urine Ketones Negative Negative mg/dL [facility] Nitrite Urine Negative Negative [facility] Leukocyte Esterase Urine Moderate (2+)(A) Negative [facility] RBC Urine 11-20(A) 0 - 2 /HPF [facility] Urine WBC >50(A) 0 - 5 /HPF [facility] Urine Squamous Epithelial Cell 6-10 0 - 2 /HPF [facility] Urine Bacteria 2+ None Seen [facility] Hyaline Casts, Urine 0-2 0 - 2 /LPF [facility] Urine Yeast Present [facility] 01/18/2025 2:13 PM EDT 01/18/2025 5:20 PM EDT us Generic External Data Provider LAB URINE ORDERAB LES Final Result [facility] [address] [place] [phone] * (ABNORMAL) CBC (01/18/2025 2:13 PM EDT) White Blood Count 7.1 4.8 - 10.8 X10*3/uL [facility] Red Blood Count 4.96 4.60 - 5.80 X10*6/uL [facility] Hemoglobin 13.9(L) 14.0 - 18.0 g/dl [facility] Hematocrit 41.8(L) 42.0 - 52.0 % [facility] Mean Corpuscular Volume 84.3 80.0 - 98.0 fL [facility] Mean Corpuscular Hemoglobin 28.0 27.0 - 33.0 pg [facility] Mean Corpuscular HGB Conc 33.3 31.0 - 36.0 g/dl [facility] Red Cell Distribution Width 13.3 11.0 - 16.0 % [facility] Platelet Count 229 160 - 400 X10*3/uL [facility] Mean Platelet Volume 11.2 9.4 - 12.4 fL [facility] NRBC Pct Auto 0.0 0.0 - 0.2 /100WBC [facility] NRBC Abs Auto 0.000 0.0 - 0.012 X10*3/uL [facility] 01/18/2025 2:13 PM EDT 01/18/2025 5:16 PM EDT us Generic External Data Provider LAB BLOOD ORDERAB LES Final Result [facility] [address] [place] [address] [phone] * ECG 12 lead (01/12/2025 9:04 AM EDT) Narrative Tg Milner FNP - 01/12/2025 9:04 AM EDT Sinus rhythm. New partial RBB not present in prior tracing. See scanned report [facility] ECG ORDERABLES Final Result * (ABNORMAL) POCT Glucose (01/11/2025 2:08 PM EDT) Glucose Blood, POC 296(A) 60 - 200 mg/dL QC Media Lot # [id number] Lot# Expiration Date Blood Capillary blood specimen / Unknown 01/11/2025 2:08 PM EDT [facility] POINT OF CARE TEST ENTER/EDIT ORDERABLES Final Result * (ABNORMAL) POCT HGB A1C (01/11/2025 2:07 PM EDT) Hemoglobin A1C 10.4(A) 4.0 - 5.7 % QC Media Lot # [id number] Lot# Expiration Date Blood 01/11/2025 2:07 PM EDT [facility] POINT OF CARE TEST ENTER/EDIT ORDERABLES Final Result * (ABNORMAL) Lipid Panel, Standard (01/22/2024 10:21 AM EDT) Triglycerides 291(H) <150 mg/dL [facility] Comment:Desirable Triglyceri de: less than 150 mg/dLBorderline High Triglyceride 150-199 mg/dLHigh Triglyceride: 200-499 mg/dLVery High Triglyceride: greater than or equal to 5OO mg/dL Cholesterol 166 <200 mg/dL [facility] Comment:Desirable Cholestero l: less than 200 mg/dLBorderline High Cholesterol: 200-239 mg/dLHigh Cholesterol: greater than 239 mg/dL LDL Cholesterol Calculated 77 <100 mg/dL [facility] Comment:Desirable LDL: less than 100 mg/dLNear Optimal/Above Optimal LDL: 110- 129 mg/dLBorderline High LDL: 130-159 mg/dLHigh LDL: 160-189 mg/dLVery High LDL: greater than or equal to 190 mg/dL HDL Cholesterol 31(L) >40 mg/dL [facility] Comment:Desirable HDL: great er than 40 mg/dL Note: This HDL assay may give artificially low results in patients with liver disease. Blood Venous blood specimen / Unknown 01/22/2024 10:21 AM EDT 01/22/2024 11:05 AM EDT [facility] LAB BLOOD ORDERABLES Final Re sult [facility] [address] [place] [address] [phone] * Hepatitis C Antibody with Reflex to HCV, RNA, Quantitative, Real-Time PCR (09/01/2022 2:59 PM EDT) Hepatitis C Antibody NON-REACT DARY NON-REACT DARY [employer] Index 0.09 <1.00 [employer] Comment: HCV antibody was non-reactive. There is no laboratory evidence of HCV infection. In most cases, no further action is required. However, if recent HCV exposure is suspected, a test for HCV RNA (test code 35277) is suggested. For additional information please refer to http://education.Browserling/faq/PSY83o3 (This link is being provided for informational/ educational purposes only.) Blood Venous blood specimen / Unknown 09/01/2022 2:59 PM EDT 09/01/2022 2:59 PM EDT [facility] LAB BLOOD ORDERABLES Final Re sult Performing Organization Address City/[facility]/ZIP Co de Phone Number [facility] [address] [facility], [place] [address] [place] [employer] [facility] [address] [place] [address] from Last 3 Months or Most Recently Relevant to Health Maintenance Insurance [facility] [employer] (HMO D-SNP) [facility] Care Teams Lower In Supervisor Relationship Specialty Start Date End Date Tg Milner TECHNICAL SUPPORT COORDINATOR [address] [place] [address] PCP - General Family Medicine 04/28/22 Elena Nihcols PharmD [address] [place] [address] Pharmacist Pharmacy 12/13/24
--- OUTSIDE RECORDS SUMMARY | 2025-04-11 09:44 | XMS_ITS | Encounter Summary ---
Author Organization [employer] Address [address] [facility] 7 [place] [address] Care Team Providers Care Painter Set Name Role Phone [facility] Primary Care Provider [phone] Elena Nichols PharmD Unavailable [phone] Reason for Visit * Reason Comments Med Refill Encounter Details Date Type Department Care Team ([facility] Contact Info) Description 02/16/2025 Refill [facility] [address] [place], [place] [phone] [facility] [address] [place] [address] Gastroesophageal reflux disease, unspecified whether esophagitis present [...] Description 05/05/2025 1:30 PM EST Office Visit [facility] MEDICINE [address] [place] [address] [facility] [address] [place] [address] documented as of this encounter Visit Diagnoses Diagnosis Gastroesophageal reflux disease, unspecified whether esophagitis present documented in this encounter Additional Health Concerns Assessment Noted Time PHQ-9 Depression Total Score: 0 01/12/20 25 2:08 PM EDT documented as of this encounter Care Teams Painter Set Relationship Specialty Start Date End Date [place] [facility] [address] [place] [address] PCP - General Family Medicine 04/28/22 Elena Nichols PharmD [address] [place] [address] Pharmacist Pharmacy 12/13/24 documented as of this encounter
--- OUTSIDE RECORDS SUMMARY | 2025-04-11 09:44 | XMS_ITS | Encounter Summary ---
Author Organization [employer] Address [address] [place] [address] 7 [place] [address] Care Team Providers Care Ceramist Name Role Phone Tg Milner POWER MACHINE OPERATOR Primary Care Provider [phone] Elena Nichols PharmD Unavailable [phone] Reason for Referral * Consultation (Routine) - Authorized Specialty Diagnoses / Procedures Referred By Contac t Referred To Contact Pharmacy Diagnoses Type 2 diabetes mellitus with other circulatory complication, with long-term current use of insulin (HCC) Jennifer Quinn MD [address] [place] [address] Phone: tel: fax: Referral ID Status Reason Start Date Expiration Date Visits Requested Visits Authorized [id number] Authorized Consult and Treat 2024 2025 6 6 Encounter Details Date Type Department Care Team ([facility] st Contact Info) Description 2024 Orders Only [facility] MEDICINE [address] [place] [phone] Jennifer Quinn MD [address] [place] [address] [phone] Type 2 diabetes mellitus with other circulatory [...] [facility] [address] [place] [address] [facility] [address] [place] [address] Scheduled Referrals Name Type Priority Associated Diagnoses Orde r Schedule Referral to Pharmacy CDTM Outpatient Referral Routine Type 2 diabetes mellitus with other circulatory complication, with long-term current use of insulin ([facility]) Ordered: 2024 documented as of this encounter Visit Diagnoses Diagnosis Type 2 diabetes mellitus with other circulatory complication, with long-term current use of insulin (HCC)- Primary documented in this encounter Additional Health Concerns Assessment Noted Time PHQ-9 Depression Total Score: 8 10/20/19 25 11:47 AM EDT documented as of this encounter Care Teams Ceramist Relationship Specialty Start Date End Date Tg Milner FNP [address] [place] [address] PCP - General Family Medicine 04/28/22 Elena Nichols PharmD [address] [place] [address] Pharmacist Pharmacy 12/13/24 documented as of this encounter
--- OUTSIDE RECORDS SUMMARY | 2025-04-11 09:44 | XMS_ITS | Encounter Summary ---
Author Organization [employer] Address [address] [facility] 7 [place] [address] Care Team Providers Care Process Engineering Technician Name Role Phone [facility] Primary Care Provider [phone] Elena Nichols PharmD Unavailable [phone] Reason for Visit * Reason Comments Transition Of Care (Tcm) HDF scheduled Encounter Details Date Type Department Care Team ([facility] st Contact Info) Description 04/10/2025 Patient Outreach [facility] [address] [place], [place] [phone] [facility] [address] [place] [address] Transition Of Care (Tcm) (HDF scheduled ) Social History Tobacco Use Types Packs/Day Years [...] as of this encounter Miscellaneous Notes * Significant Event - Magui Mares - 04/10/2025 10:33 AM EST 04/10/25 1032 Hospital Discharges and [facility]mission for [facility] Date of Admission/Visit 04/05/25 Date of Discharge 04/08/25 Facility [facility] Diagnosis Type 2 diabetes mellitus without complications Disposition Discharged Home Follow-Up Actions Follow-Up Needed Provider appointment Follow-Up Outcome Spoke to Patient;Booked Appointment Initial Contact Date 04/10/25 AURORA Cunningham placed outbound call to patient for HDF outreach. Patient's name and were confirmed. Patient educated on the importance of follow up with provider following inpatient admission. Patient offered an HDF appt. Patient is agreeable to an appointment and has been scheduled for 05/05 at1:30pm with Dr. Milner. Patient provided with education on contacting the Health Center with any questions or concerns prior to the scheduled appointment. Patient educated on extended clinic hours on Mondays and Wednesdays, and Walk-In Urgent Care Located in [facility]. Patient provided with after-hours line for [facility], , which offer night time triage service and option to transfer to personal secretary provider if needed. CC scanned discharge summary into patient's chart. * Significant Event - Magui Mares - 04/10/2025 10:11 AM EST 04/10/25 1005 Hospital Discharges and Admission for [facility] Type of Visit Hospital Admission Date of Admission/Visit 04/05/25 Date of Discharge 04/08/25 Facility [facility] Diagnosis Type 2 diabetes mellitus without complications Disposition Discharged Home Follow-Up Actions Follow-Up Needed Provider appointment Follow-Up Outcome Booked Appointment;Left Voicemail Initial Contact Date 04/10/25 AURORA mcnally call to offer patient with an HDF appointment with provider. No answer at this time. Patient's name and were not confirmed. CC left detailed message educating patient on importance of following up with provider following an inpatient admission. Provided contact information requesting a call back in order to schedule the HDF appointment. Patient educated via voicemail on extended clinic hours on Mondays and Wednesdays, and Walk-In Urgent Care Located in [facility]. Patient provided with after-hours line for [facility], , which offer night time triage service and option to transfer to personal secretary provider if needed. CC scanned discharge summary into patient's chart. documented in this encounter Plan of Treatment Upcoming Encounters Date Type Department Care Team (Late st Contact Info) Description 05/05/2025 1:30 PM EST Office Visit [facility] MEDICINE [address] [place] [address] Tg Milner FNP [address] [place] [address] documented as of this encounter Visit Diagnoses Not on filedocumented in this encounter Additional Health Concerns Assessment Noted Time PHQ-9 Depression Total Score: 0 01/12/20 2:08 PM EDT documented as of this encounter Care Teams Process Engineering Technician Relationship Specialty Start Date End Date Tg Milner FNP [address] [place] [address] PCP - General Family Medicine 04/28/22 Elena Nichols, PharmD [address] [place] [address] Pharmacist Pharmacy 12/13/24 documented as of this encounter
--- OUTSIDE RECORDS SUMMARY | 2025-04-11 09:44 | XMS_ITS | Encounter Summary ---
Author Organization [employer] Address [address] [facility] [address] 7[address] [place] [address] Care Team Providers Care Director Of Collections And Archives Name Role Phone Annia [facility] Primary Care Provider [phone] Elena Nichols PharmD Unavailable [phone] Encounter Details Date Type Department Care Team ([facility] st Contact Info) Description 02/22/2025 Orders Only [facility] [address] [place] [address] [place] [facility] [address] [place] [address] Dyspepsia (Primary Dx) Social History Tobacco Use [...] Description 05/05/2025 1:30 PM EST Office Visit [facility] MED[facility] [address] [place] [address] [place] [facility] [address] [place] [address] documented as of this encounter Visit Diagnoses Diagnosis Dyspepsia- Primary Dyspepsia and other specified disorders of function of stomach documented in this encounter Additional Health Concerns Assessment Noted Time PHQ-9 Depression Total Score: 0 01/12/20 25 2:08 PM EDT documented as of this encounter Care Teams Director Of Collections And Archives Relationship Specialty Start Date End Date Tg Milner [facility] [address] [place] [address] PCP - General Family Medicine 04/28/22 Elena Nihcols PharmD [address] [place] [address] Pharmacist Pharmacy 12/13/24 documented as of this encounter
--- OUTSIDE RECORDS SUMMARY | 2025-04-11 09:44 | XMS_ITS | Encounter Summary ---
Author Organization [employer] Address [address] [facility] 7t [place] [address] Care Team Providers Care Master Scheduler Name Role Phone Tg Milner [facility] Primary Care Provider [phone] Elena Nichols PharmD Unavailable [phone] Encounter Details Date Type Department Care Team ([facility] st Contact Info) Description 01/16/2025 Telephone [facility] [address] [place], [place] [phone] [facility] [address] [place] [address] Social History Tobacco Use Types Packs/Day Years [...] today's appointment. Requesting a call back at [phone] documented in this encounter Plan of Treatment Upcoming Encounters Date Type Department Care Team (Late st Contact Info) Description 05/05/2025 1:30 PM EST Office Visit [facility] [address] [place] [address] Tg Milner [facility] [address] [place] [address] documented as of this encounter Visit Diagnoses Not on filedocumented in this encounter Additional Health Concerns Assessment Noted Time PHQ-9 Depression Total Score: 0 01/12/20 25 2:08 PM EDT documented as of this encounter Care Teams Master Scheduler Relationship Specialty Start Date End Date Tg Milner FNP [address] [place] [address] PCP - General Family Medicine 04/28/22 Elena Nichols PharmD [address] [place] [address] Pharmacist Pharmacy 12/13/24 documented as of this encounter
--- OUTSIDE RECORDS SUMMARY | 2025-04-11 09:44 | XMS_ITS | Continuity of Care Document ---
Author Name [employer], Medical Address [address] [place] [address] Organization Unknown Address [address] [place] [address] Medications No known medications Problems No known problems
--- OUTSIDE RECORDS SUMMARY | 2025-04-11 09:44 | XMS_ITS | Encounter Summary ---
Author Organization [employer] Address [address] [facility] 7 [place] [address] Care Team Providers Care Recruiting Scheduler Name Role Phone Tg Milner [facility] Primary Care Provider [phone] Elena Nichols PharmD Unavailable [phone] Reason for Referral * Medications - Closed Specialty Diagnoses / Procedures Referred By Contshelbie t Referred To Contact Diagnoses Type 2 diabetes mellitus with stage 3b chronic kidney disease, with long-term current use of insulin (HCC) Elena Nichols PharmD [address] [place] [address] Phone: tel: fax: Referral ID Status Reason Start Date Expiration Date Visits Re quested Visits Authorized [id number] Closed 1 1 Encounter Details Date Type Department Care Team ([facility] st Contact Info) Description 04/10/2025 Telephone [facility] MEDICINE [address] [place] [address] Elena Nichols PharmD [address] [place] [address] Social History Tobacco Use Types Packs/Day Years [...] Telephone Encounter - Elena Nichols PharmD - 04/10/2025 11:08 AM EST Images from the original note were not included. Pharmacy Brief Encounter - Insulin Titration Pharmacist: Elena Nichols PharmD Lead Consultant (swabber): Alysia Carlton Agustin Whaley is a 64 y.o. year old patient here for CDTM - Diabetes completed over the phone. Pharmacotherapy: Synjardy XR 12.09/999 mg 2 tabs daily Mounjaro 5 mg weekly Lantus 16 units at bedtime Summary of previous encounter(s): Patient was at the hospital (04/05/25-04/08/25) due a UTI infection due to indwelling catheter. Received antibiotic treatment, other drugs remain the same. Today's Visit: Patient affirms using 16 units. Denies hypolgycemia. Dexcom report shows hyperglycemia with FBG = 186 mg/dL @ 6am average for the 3 days since hospitalization. Plan: Patient would benefit from ongoing basal insulin titration. As FBG >200 mg/dL, increase basal insulin by >20%. Sent new Rx for Lantus 20 units daily. Discontinued Synjardy XR 12.5-1000 mg due to severe UTI and the risk with SGLT-2s. Due to health insurance coverage will start metformin XR 500 mg 2 tablets BID. Patient agreed and will bring in medboxes for adjustment today. Discussed increase of Mounjaro. Patient is tolerating and denies ADR. Continue Mounjaro 5 mg for 2 weeks (patient still has 2 pens) After the 2 weeks agreed to increase of 7.5 mg Patient is complaining of gas and previously had access to OTC medications. PCP has approved prescription for OTC simethicone 125 mg 1 tablet as needed with meals and at bedtime. documented in this encounter Plan of Treatment Upcoming Encounters Date Type Department Care Team (Late st Contact Info) Description 05/05/2025 1:30 PM EST Office Visit [facility] MEDICINE [address] [place] [address] [facility] [address] [place] [address] documented as of this encounter Visit Diagnoses Diagnosis Type 2 diabetes mellitus with stage 3b chronic kidney disease, with long-term current use of insulin (HCC) documented in this encounter Additional Health Concerns Assessment Noted Time PHQ-9 Depression Total Score: 0 01/12/20 2:08 PM EDT documented as of this encounter Care Teams Recruiting Scheduler Relationship Specialty Start Date End Date PekinTg, TUBE DRAWING SUPERVISOR [address] [place] [address] PCP - General Family Medicine 04/28/22 Elena Nichols, GaleD [address] [place] [address] Pharmacist Pharmacy 12/13/24 documented as of this encounter
--- OUTSIDE RECORDS SUMMARY | 2025-04-11 09:44 | XMS_ITS | Clinical Summary ---
Author Organization [address] [place] [address] Address [address] [place] [address] Phone Care Team Providers Care Operations Lieutenant Name Role Phone [facility] Primary Care Provider [phone] Allergies No known active allergies Medications acetaminophen [...] (HGBA1C) 01/19/2025 07/22/2024 COVID-19 Vaccine (1 - 2024-2 6 season) 2025 Influenza Vaccine (#1) 2025 Diabetes: [...] mmol/L LAB CHEMISTRY METHOD 09/12/2024 8:05 PM [facility] Potassium 4.3 3.5 - 5.5 mmol/L LAB CHEMISTRY METHOD 09/12/2024 8:05 PM [facility] Chloride 100 96 - 110 mmol/L LAB CHEMISTRY METHOD 09/12/2024 8:05 PM [facility] CO2 25 21 - 32 mmol/L LAB CHEMISTRY METHOD 09/12/2024 8:05 PM [facility] Anion Gap 7 3 - 11 LAB CHEMISTRY METHOD 09/12/2024 8:05 PM [facility] Glucose 216(H) 70 - 100 mg/dL LAB CHEMISTRY METHOD 09/12/2024 8:05 PM [facility] BUN 31(H) 5 - 25 mg/dL LAB CHEMISTRY METHOD 09/12/2024 8:05 PM [facility] Creatinine 1.87(H) 0.70 - 1.30 mg/dL LAB CHEMISTRY METHOD 09/12/2024 8:05 PM EDT [facility] eGFR 39(L) >=60 mL/min/1. 73m2 LAB CHEMISTRY METHOD 09/12/2024 8:05 PM EDT [facility] Comment:Calculation based on the Chronic Kidney Disease Epidemiology Collaboration (CKD-EPI) equation refit without adjustment for race. BUN/Creatinine Ratio 16.6 LAB CHEMISTRY METHOD 09/12/2024 8:05 PM EDT [facility] Calcium 9.7 8.5 - 10.5 mg/dL LAB CHEMISTRY METHOD 09/12/2024 8:05 PM EDT [facility] Blood Venous blood specimen / Unknown Venipuncture / Unknown 09/12/2024 7:05 PM EDT 09/12/2024 7:34 PM EDT us Paloma Perry MD LAB BLOOD ORDERABLES Fin al Result [facility] [address] [place] [address], from Last 3 Months or Most Recently Relevant to Health Maintenance Insurance [facility] [employer] Member Subscriber Plan / Payer (Ef fective 2024-Present) Name:Brandt Nelson Relation to Subscriber:Self Name:Brandt Nelson Payer ID:[id number] Group ID:Not on file Type:Not on file Address: [address] [place] [address] Care Teams Operations Lieutenant Relationship Specialty Start Date End Date Annia Tg [address] [facility] [address] [place] [address] PCP - General 01/05/24
--- OUTSIDE RECORDS SUMMARY | 2025-04-11 09:44 | XMS_ITS | Encounter Summary ---
Author Organization [facility] Address [address] [place] [address] 7 [place] [address] Care Team Providers Care Travel Physical Therapist Name Role Phone Annia [facility] Primary Care Provider [phone] Elena Nichols PharmD Unavailable [phone] Reason for Visit * Reason Comments Med Refill Encounter Details Date Type Department Care Team ([facility] Contact Info) Description 12/22/2022 Refill [facility] MEDICINE [address] [place] [address] [facility] [address] [place] [address] Primary hypertension Social History Tobacco Use Types [...] Upcoming Encounters Date Type Department Care Team ([facility] Contact Info) Description 05/05/2025 1:30 PM EST Office Visit [facility] MEDICINE [address] [place] [address] Tg Milner [facility] [address] [place] [address] documented as of this encounter Visit Diagnoses Diagnosis Primary hypertension Unspecified essential hypertension documented in this encounter Additional Health Concerns Assessment Noted Time PHQ-9 Depression Total Score: 0 11/25/19 23 3:32 PM EDT documented as of this encounter Care Teams Travel Physical Therapist Relationship Specialty Start Date End Date Annia KRISTY Mas [address] [place] [address] PCP - General Family Medicine 04/28/22 Elena Nichols, Navarro [address] [place] [address] Pharmacist Pharmacy 12/13/24 documented as of this encounter
--- OUTSIDE RECORDS SUMMARY | 2025-04-11 09:44 | XMS_ITS | Encounter Summary ---
Author Organization [employer] [facility] Address [address] [place] [address] Care Team Providers Care Higher Education Administrator Name Role Phone [place] [facility] Primary Care Provider [phone] Elena Nichols PharmD Unavailable [phone] Reason for Visit * Reason Comments Med Refill Encounter Details Date Type Department Care Team (Late Contact Info) Description 06/18/2022 Refill [facility] [address] [place] [address] [place] [facility] [address] [place] [address] Type 2 diabetes mellitus without complication, without long-term current use of insulin ([facility]) Social History [...] 1:30 PM EST Office Visit [facility] [address] [place], [place] [phone] [place] [facility] [address] [place] [address] documented as of this encounter Visit Diagnoses Diagnosis Type 2 diabetes mellitus without complication, without long-term current use of insulin ([facility]) documented in this encounter Care Teams Higher Education Administrator Relationship Specialty Start Date End Date [place] [employer] CHIEF CLERK [address] [place] [address] PCP - General Family Medicine 04/28/22 Elena Nichols, GaleD [address] [place] [address] Pharmacist Pharmacy 12/13/24 documented as of this encounter
--- OUTSIDE RECORDS SUMMARY | 2025-04-11 09:44 | XMS_ITS | Encounter Summary ---
Author Organization [employer] [facility] Address [address] [place] [address] Care Team Providers Care Kettle Firer Name Role Phone Annia Tg [facility] Primary Care Provider [phone] Elena Nichols PharmD Unavailable [phone] Encounter Details Date Type Department Care Team (Late st Contact Info) Description 07/10/2022 Orders Only [facility] MEDICINE [address] [place] [id number] Chante Mackey LPN Social History Tobacco Use [...] Visit [facility]INE [address] [place] [address] Tg Milner FNP [address] [place] [address] documented as of this encounter Visit Diagnoses Not on filedocumented in this encounter Care Teams Kettle Firer Relationship Specialty Start Date End Date Tg Milner FNP [address] [place] [address] PCP - General Family Medicine 04/28/22 Elena Nichols, GaleD [address] [place] [address] Pharmacist Pharmacy 12/13/24 documented as of this encounter
--- OUTSIDE RECORDS SUMMARY | 2025-04-11 09:44 | XMS_ITS | Encounter Summary ---
Author Organization [employer] Address 75 [facility] 7t [place] [address] Care Team Providers Care Private Branch Exchange Service Adviser Name Role Phone Annia [facility] Primary Care Provider [phone] Elena Nichols PharmD Unavailable [phone] Reason for Visit * Reason Comments Med Refill Encounter Details Date Type Department Care Team ([facility] Contact Info) Description 08/31/2024 Refill [facility] [address] [place], [place] [phone] [place] [facility] [address] [place] [address] Primary hypertension Social History Tobacco Use Types [...] 05/05/2025 1:30 PM EST Office Visit [facility] [address] [place] [address] [place] [facility] [address] [place] [address] documented as of this encounter Visit Diagnoses Diagnosis Primary hypertension Unspecified essential hypertension documented in this encounter Additional Health Concerns Assessment Noted Time PHQ-9 Depression Total Score: 0 07/22/19 25 10:03 AM EST documented as of this encounter Care Teams Private Branch Exchange Service Adviser Relationship Specialty Start Date End Date Tg Milner [facility] [address] [place] [address] PCP - General Family Medicine 04/28/22 Elena Nichols PharmD [address] [place] [address] Pharmacist Pharmacy 12/13/24 documented as of this encounter
--- OUTSIDE RECORDS SUMMARY | 2025-04-11 09:44 | XMS_ITS | Encounter Summary ---
Author Organization [facility] Address 75 [facility] 7t [place] [address] Care Team Providers Care Train Inspector Name Role Phone Tg Milner [facility] Primary Care Provider [phone] Elena Nichols PharmD Unavailable [phone] Reason for Visit * Reason Comments Med Refill Encounter Details Date Type Department Care Team ([facility] st Contact Info) Description 10/04/2024 Refill [facility] [address] [place] [address] Melisa Jacob MD [address] [place] [address] Pain in right lumbar region of back; [...] Description 05/05/2025 1:30 PM EST Office Visit [facility] [address] [place] [address] [facility] [address] [place] [address] documented as of this encounter Visit Diagnoses Diagnosis Pain in right lumbar region of back Right flank pain Abdominal pain, unspecified site documented in this encounter Additional Health Concerns Assessment Noted Time PHQ-9 Depression Total Score: 0 07/22/19 25 10:03 AM EST documented as of this encounter Care Teams Train Inspector Relationship Specialty Start Date End Date [facility] [address] [place] [address] PCP - General Family Medicine 04/28/22 Elena Nichols PharmD [address] [place] [address] Pharmacist Pharmacy 12/13/24 documented as of this encounter
--- NOTE | 2025-04-11 11:50 | PC.NURSE ---
!,000ml urine out total after flushing
[2025-04-11 11:58] LABS: Appearance Urine Turbid; Glucose Urine UA >=1000 mg/dL (Negative); PH 6.0 (5.0-9.0); Specific Gravity - Urine 1.020 (1.005-1.025); UMIC TRIGGER UACC YES
[2025-04-11 12:13] LABS: UACC Culture Trigger YES
[2025-04-11 13:28] VITALS: BP 119/64; PULSE 66; RESP 20; TEMP 36.7; O2SAT 96
== END 2025-04-11 14:13 | disposition home or self-care (01) ==
PROVIDERS: Emergency Provider Emergency Medicine; PCP Registered Nurse
DX: R33.9 Retention of urine, unspecified (principal); E11.9 Type 2 diabetes mellitus without complications; I10 Essential (primary) hypertension; Z96.0 Presence of urogenital implants
CPT/HCPCS: 51798; 81001; 87086; 87088; 99282; 99283

== ENCOUNTER 2025-04-12 11:30 | Outpatient (RCR) | payer OTHER, SELFPAY ==
[2025-03-01 15:51] LABS: MANUAL DIFF FLAG NO
[2025-03-01 16:02] LABS: Hematocrit 40.6 % (42.0-52.0); Hemoglobin 13.9 g/dl (14.0-18.0); Imm Gran Abs Auto 0.04 X10*3/uL (0.00-0.03); Imm Gran Pct Auto 0.6 % (0.0-0.4); Lymphocytes Absolute Auto 2.2 X10*3/uL (1.2-4.9); Mean Corpuscular HGB Conc 34.2 g/dl (31.0-36.0); Mean Corpuscular Hemoglobin 28.4 pg (27.0-33.0); Mean Corpuscular Volume 82.9 fL (80.0-98.0); NRBC Abs Auto 0.000 X10*3/uL (0.0-0.012); NRBC Pct Auto 0.0 /100WBC (0.0-0.2); Platelet Count 217 X10*3/uL (160-400); Red Blood Count 4.90 X10*6/uL (4.60-5.80); White Blood Count 6.7 X10*3/uL (4.8-10.8)
[2025-03-01 16:09] LABS: Total Hemoglobin (HGBA1C) 3592.4778 umol/L
[2025-03-01 16:47] LABS: Erythrocyte Sedimentation Rate 36 MM/HR (0-15)
--- NOTE | ~2025-04-12 | XR_ITS ---
EXAMINATION: XR FOOT, LEFT CLINICAL INFORMATION: NON HEALING WOUND COMPARISON: 05/17/2024. TECHNIQUE: AP, lateral, and oblique views of the left foot. FINDINGS: No fracture, dislocation, or suspicious bone lesion. No focal region of osteopenia or permeative bone change to suggest radiographic changes of osteomyelitis. Joint space is grossly maintained. Alignment is normal. Normal plantar arch. Moderate sized plantar and dorsal calcaneal spurs. Soft tissue swelling of the hallux with a questionable soft tissue defect on the medial plantar surface. No subcutaneous emphysema or foreign body seen. Diffuse vascular calcifications seen. XR/XR foot LT min 3V IMPRESSION: 1. No radiographic evidence of osteomyelitis. No acute bony findings. Electronically signed by: Les Muro MD 03/02/2025 08:22 AM EDT
== END 2025-04-12 16:09 | disposition home or self-care (01) ==
LOC: HO.WCC 11:30
PROVIDERS: PCP Registered Nurse; Visit Provider Surgery Surgical Oncology
DX: E11.65 Type 2 diabetes mellitus with hyperglycemia (principal); E11.40 Type 2 diabetes mellitus with diabetic neuropathy, unspecified; L84 Corns and callosities; I10 Essential (primary) hypertension; Z09 Encounter for follow-up examination after completed treatment for conditions other than malignant neoplasm; Z79.4 Long term (current) use of insulin; Z86.31 Personal history of diabetic foot ulcer; Z87.891 Personal history of nicotine dependence
CPT/HCPCS: 11055; 36415; 73630; 83036; 85025; 85652; 86140; 87070; 87073; 87147; 87205; 97597; 99211; 99213

== ENCOUNTER 2025-04-14 14:13 | Outpatient (AMB) | payer OTHER, SELFPAY ==
[2025-04-14 14:15] VITALS: BMI 29.3
--- NOTE | 2025-04-14 14:15 | HO.NEPHOV ---
Vital Signs 04/14/25 14:15 Height 5 ft 10 in Weight 204 lb BMI 29.3 Intake Visit Reasons: 2 Month F/U r/s 04/05 Barrel Straightener Required: Yes Accompanied by: Self / Same As Patient Allergies No Known Allergies (No Known Allergies*) Allergy (Verified 04/14/25 14:17) Medication List - Last Reconciled 04/14/25 by Keith Willis MD acetaminophen 500 mg PO Q6H PRN alcohol swabs (Alcohol Prep Pads) pad topical DAILY amlodipine 10 mg PO DAILY ascorbic acid (vitamin C) 1,000 mg PO DAILY 90 days aspirin (Adult Aspirin Regimen) 81 mg PO DAILY blood sugar diagnostic (FreeStyle Lite Strips) As directed diphenoxylate-atropine 2.5-0.025 mg (Lomotil) 1 tab PO DAILY PRN docusate sodium 250 mg PO BID PRN doxazosin 4 mg PO BEDTIME 30 days finasteride 5 mg PO DAILY 90 days gabapentin 800 mg PO BID insulin glargine (Lantus Solostar U-100 Insulin) 20 units subcut lancets (TRUEplus Lancets) As directed latanoprost 0.005% 1 drp ophthalmic (eye) BEDTIME melatonin 10 mg PO BEDTIME PRN metformin ER 1,000 mg PO DAILY methenamine hippurate 1 g PO DAILY 90 days metoprolol succinate ER 200 mg PO DAILY multivitamin 1 tab PO DAILY pantoprazole 20 mg PO DAILY polyethylene glycol 3350 (Miralax) 238 grams PO ONCE 1 day pravastatin 40 mg PO DAILY sodium zirconium cyclosilicate (Lokelma) 5 grams PO DAILY spironolacton-hydrochlorothiaz 25-25 mg 1 tab PO DAILY tirzepatide (Mounjaro) mg subcut QWEEK HPI Comments Details: Brandt is a pleasant 62-year-old man with a history of longstanding diabetes mellitus and hypertension. He has been referred for evaluation of chronic kidney disease. Over the past 2 years there has been a gradual increase in serum creatinine from 1.4 up to 1.8 mg/dL. As of 01/19/2024 serum creatinine was 1.8 mg/dL. He was on lisinopril 40 mg along with amlodipine and hydrochlorothiazide 40 mg a day. Recently lisinopril has been placed on hold. He has a history of taking NSAIDs for almost a year but he had stopped NSAIDs about 4 years ago. Ongoing medical problems also includes obstructive sleep apnea history of Jewell's palsy, diabetic polyneuropathy obesity and non alcoholic steatohepatitis. He has a history of smoking he quit smoking in 2022. No history of any alcohol abuse or drug abuse. He complains of increased urinary frequency. No hesitancy no hematuria. No shortness of breath. No cough. No nausea or vomiting. No chest pain. No rash no fever he has chronic leg edema. 05/18/24 Recent cellulitis ;On Doxy ;c/o increased urination 06/15/24 Doing better;Off HcTZ 10/05/24 Developed urinary retention Anaya was inserted. 01/16/25 The patient is a 64-year-old male with CKD ; Prostate hypertrophy scheduled for next month, with a catheter in place for three months. No recent blood test since November; Diabetes mellitus managed with Jardiance, insulin 30 units daily. Glucose monitor setup issues due to lost number. Hyperkalemia episodes noted, with high potassium in November. Potassium level to be checked today due to spironolactone hydrochlorothiazide use. MEDICATIONS: - Jardiance for diabetes mellitus - Insulin 30 units daily for diabetes mellitus - Spironolactone hydrochlorothiazide for hypertension 04/14/25 History of Present Illness The patient is a 64-year-old male presenting with urinary tract infection due to prolonged catheter use. He has experienced recurrent infections, attributed to the extended duration of catheterization, which has been in place for approximately three months. The infections have occurred three times, necessitating antibiotic treatment, which he has recently completed. The patient also presents with hypertension, which has been fluctuating. His blood pressure was noted to be low during the visit, and there was a discussion about potentially adjusting his medication. Additionally, the patient has neuropathy affecting his legs, attributed to nerve damage. He uses supportive devices for ambulation due to this condition. bronson [facility] Medical History Osteomyelitis DM2 (diabetes mellitus, type 2) Essential hypertension Right lumbar radiculopathy Arthritis of both knees Balanitis Type 2 diabetes mellitus with polyneuropathy Hyperlipidemia LDL goal <100 Obesity due to excess calories Type 2 diabetes mellitus with hyperglycemia, with long-term current use of insulin Surgical History H/O colonoscopy Hx of tonsillectomy Hx of appendectomy Family History Father No problems noted. 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 Physical Exam Vital Signs: BMI result Body Mass Index 29.3 Const General: comfortable Nutritional Appearance: well nourished Orientation/consciousness: patient oriented x3 HEENT Head: No normal to inspection Mouth: moist mucous membranes Neck Neck: Yes supple and Yes no JVD Resp Auscultation: clear to auscultation bilaterally and no rales Cardio Jugular venous distension: no JVD Palpation: no palpable S3 and no palpable S4 Heart sounds: no rubs GI Palpation (GI): Soft to palpation and nontender Percussion: No Fluid wave present General: Yes no CVA tenderness Back/Spine/Pelvis Back: no CVA tenderness Skin General skin exam: no rashes or lesions noted Neuro General: patient oriented x3 Extrem General: Yes no pedal edema and No clubbing Results Reviewed Nephrology Results: Hgb, (14.0-18.0) 13.8 g/dl L 04/02/25 WBC, (4.8-10.8) 8.1 X10*3/uL 04/02/25 Plt Count, (160-400) 252 X10*3/uL 04/02/25 Sodium, (135-145) 136 mmol/L 04/02/25 Potassium, (3.3-5.1) 5.5 mmol/L H 04/02/25 Chloride, (96-108) 103 mmol/L 04/02/25 Carbon Dioxide, (22-29) 23 mmol/L 04/02/25 BUN, (9-16) 36 mg/dL H 04/02/25 Creatinine, (0.5-1.4) 1.77 mg/dL H 04/02/25 Calcium, (8.4-10.2) 9.6 mg/dL 04/02/25 Urine Protein, (Neg-Trace) 100 (2+) mg/dL H 04/11/25 Renal US 03/24/24 Assessment & Plan Assessment & Plan (1) CKD (chronic kidney disease): Code(s): N18.9 - Chronic kidney disease, unspecified Category: Medical (2) Essential hypertension: Code(s): I10 - Essential (primary) hypertension Category: Medical (3) DM2 (diabetes mellitus, type 2): Code(s): E11.9 - Type 2 diabetes mellitus without complications Category: Medical Qualifiers: Diabetes mellitus complication status: with hyperglycemia Diabetes mellitus senior care insulin use: without senior care use Qualified Code(s): E11.65 - Type 2 diabetes mellitus with hyperglycemia Plan 64-year-old man with a history of longstanding diabetes mellitus hypertension with obesity and sleep apnea has chronic kidney disease. Superimposed LILI due to obstructive uropathy He probably has a component of hypertensive nephrosclerosis as well. Recommendation Keep catheter Await Urological procedure o 05/05/25 Monitor Potassium May need Lokelma if K > 5.5 Maintain blood pressure less than 130/80. Stay on low-sodium /low K diet diet. Encouraged weight loss. Continue to avoid nephrotoxic agents including NSAIDs. Orders: Orders Complete Blood Count no Diff 2 Months N18.9 - Chronic kidney disease, unspecified Basic Metabolic Panel 2 Months N18.9 - Chronic kidney disease, unspecified Coding Level of Care Code Est Pt Level 4 (20810) Diagnoses CKD (chronic kidney disease) N18.9 Essential hypertension I10 Type 2 diabetes mellitus with hyperglycemia, without long-term current use of insulin E11.65 Diabetes mellitus complication status: with hyperglycemia Diabetes mellitus airport attendant insulin use: without airport attendant use
--- OUTSIDE RECORDS SUMMARY | 2025-04-14 21:09 | XMS_ITS | Clinical Summary ---
Author Organization [address] [place] [address] Address [address] [place] [address] Phone Care Team Providers Care Rn Sane Name Role Phone [facility] Primary Care Provider [phone] Allergies No known active allergies Medications acetaminophen [...] mmol/L LAB CHEMISTRY METHOD 09/12/2024 8:05 PM [facility] Potassium 4.3 3.5 - 5.5 mmol/L LAB CHEMISTRY METHOD 09/12/2024 8:05 PM [facility] Chloride 100 96 - 110 mmol/L LAB CHEMISTRY METHOD 09/12/2024 8:05 PM [facility] CO2 25 21 - 32 mmol/L LAB CHEMISTRY METHOD 09/12/2024 8:05 PM [facility] Anion Gap 7 3 - 11 LAB CHEMISTRY METHOD 09/12/2024 8:05 PM [facility] Glucose 216(H) 70 - 100 mg/dL LAB CHEMISTRY METHOD 09/12/2024 8:05 PM [facility] BUN 31(H) 5 - 25 mg/dL LAB CHEMISTRY METHOD 09/12/2024 8:05 PM [facility] Creatinine 1.87(H) 0.70 - 1.30 mg/dL LAB CHEMISTRY METHOD 09/12/2024 8:05 PM EDT [facility] eGFR 39(L) >=60 mL/min/1. 73m2 LAB CHEMISTRY METHOD 09/12/2024 8:05 PM EDT [facility] Comment:Calculation based on the Chronic Kidney Disease Epidemiology Collaboration (CKD-EPI) equation refit without adjustment for race. BUN/Creatinine Ratio 16.6 LAB CHEMISTRY METHOD 09/12/2024 8:05 PM EDT [facility] Calcium 9.7 8.5 - 10.5 mg/dL LAB CHEMISTRY METHOD 09/12/2024 8:05 PM EDT [facility] Blood Venous blood specimen / Unknown Venipuncture / Unknown 09/12/2024 7:05 PM EDT 09/12/2024 7:34 PM EDT us Paloma Perry MD LAB BLOOD ORDERABLES Fin al Result [facility] [address] [place] [address], from Last 3 Months or Most Recently Relevant to Health Maintenance Insurance [facility] [employer] Member Subscriber Plan / Payer (Ef fective 2024-Present) Name:Brandt Nelson Relation to Subscriber:Self Name:Brandt Nelson Payer ID:[id number] Group ID:Not on file Type:Not on file Address: [address] [place] [id number] Care Teams Rn Sane Relationship Specialty Start Date End Date Annia Tg [address] [facility] [address] [place] [address] PCP - General 01/05/24
--- OUTSIDE RECORDS SUMMARY | 2025-04-14 21:09 | XMS_ITS | Continuity of Care Document ---
Author Name [facility] Address [address] [place] [id number] Organization Unknown Address [address] [place] [address] Medications No known medications Problems No known problems
== END 2025-04-14 14:29 | disposition home or self-care (01) ==
LOC: HO.HKA 14:13
PROVIDERS: Visit Provider Internal Medicine Hypertension Specialist
DX: I12.9 Hypertensive chronic kidney disease with stage 1 through stage 4 chronic kidney disease, or unspecified chronic kidney disease (principal); N18.9 Chronic kidney disease, unspecified; E11.65 Type 2 diabetes mellitus with hyperglycemia
CPT/HCPCS: 99214

== ENCOUNTER → 2025-04-14 14:13 | Outpatient (BNVA) | payer OTHER, SELFPAY | PROVIDERS: Visit Provider Internal Medicine Hypertension Specialist | DX: I10 Essential (primary) hypertension (principal); E11.65 Type 2 diabetes mellitus with hyperglycemia; N18.9 Chronic kidney disease, unspecified; E66.9 Obesity, unspecified; G47.33 Obstructive sleep apnea (adult) (pediatric) | CPT/HCPCS: 99212 ==

== ENCOUNTER → 2025-05-02 09:36 | Outpatient (REF) | payer OTHER, SELFPAY ==
--- NOTE | ~2025-05-02 | NM_ITS ---
Lexiscan Myocardial perfusion study Indication: Preoperative cardiovascular evaluation Technique: The patient was brought in for a Lexiscan perfusion study on 05/02/2025 and was injected 0.4 mg of Lexiscan intravenously. Within a minute of this injection 30 mCi of sestamibi was given intravenously. Images were obtained using the SPECT gamma camera interlaced with the gating device. Images were obtained in supine position. Resting perfusion study was performed on 05/04/2025. Patient was administered 30 mCi of sestamibi intravenously at rest. Images were then obtained in supine position. Total DLP 84 mGy-cm. Images were processed with the software and compared side to side in short axis, horizontal long axis and vertical long axis views. Findings: Raw aquisition reviewed. The stress perfusion study showed decreased tracer uptake at the apex and adjacent areas in the inferior wall. Some improvement with CT attenuation correction and hence could have components of diaphragmatic attenuation artifact. The gated study shows normal LV systolic function with calculated LVEF of 72%. LV cavity is normal in size. The gated study shows normal wall thickening and contraction of segments. Resting study shows decreased tracer uptake at the apex. No significant change with CT attenuation correction. Gating at rest reveals normal wall motion with ejection fraction at 70%. The findings are consistent with fixed perfusion defect at the apex with some reversibility along the inferior portion but normal contractility. NM/NM cardiolite stress test Impression: 1. Myocardial perfusion imaging study shows probably normal myocardial perfusion. 2. Gated LVEF is 72% during stress and 70% during rest. 3. Transient ischemic dilatation not present. EKG component of the test reported separately. Electronically signed by: Daren Ellis MD 05/04/2025 05:06 PM [facility]
--- NOTE | 2025-05-02 09:40 | CA_ITS ---
Acquisition Time: 2025-05-02 09:45:54 Total Exercise Time: 00:02:00 Test Indications: Abnormal ECG RBBB HTN DIABETES Medications: SEE H&P Protocol: LEXISCAN Max HR: 82 BPM 53% of Pred: 154 BPM Max BP: 114/58 mmHG Max Work Load: 1.0 METS Pharmacological stress test with Lexiscan while pt marches in chair, with reports of SOB and abdominal discomfort, without any arrythmias, with normotensive repsonse to injection. Nondiagnostic EKG for ischemia. In recovery,the synptoms improved and pt feeling back to baseline. Nuclear images pending. Test reviewed with Dr. Ellis. Referred By: Daren Ellis Electronically Signed By: Rafi Tee
--- OUTSIDE RECORDS SUMMARY | 2025-05-02 10:28 | XMS_ITS | Clinical Summary ---
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 90 tablet 3 04/21/20 25 4:08 PM EST 025 2025 Active docusate sodium (Colace) 100 MG capsuleIndication s:Constipation, unspecified constipation type Take 1 capsule (100 mg) by mouth 2 times daily. 60 capsule 11 04/18/20 25 1:36 PM EST 025 2025 Active doxazosin (Cardura) 4 MG tablet Take 4 mg by mouth at bedtime. 025 Active finasteride (Proscar) 5 MG tablet Take [...] pads Use as directed 100 each 11 04/18/20 1:36 PM EST Active Continuous Glucose Sensor (Dexcom G7 Sensor) misc 1 each every 10 (ten) days. Apply 1 sensor every 10 days 3 each 04/18/20 1:31 PM EST 2024 Active Multiple Vitamin (Multivitamin) tablet Take 1 tablet by mouth Once per day. Active glucose blood (FREESTYLE LITE) test stripIndications: Diabetic polyneuropathy associated with type 2 diabetes mellitus (HCC) Use to test blood sugar up to 3 time(s) daily as needed for CGM failure or rapidly changing BG. 100 strip 11 04/18/20 1:36 PM EST Active TRUEplus Lancets 33G [facility] [place] Use to test blood sugar up to 3 time(s) daily as needed for CGM failure or rapidly changing BG. 100 each 04/18/20 1:36 PM EST 025 Active polyethylene glycol, PEG, 3350 (Glycolax) 17 GM/SCOOP powderIndications :Constipation, unspecified TAKE 17 GM MIXED IN 8 OUNCES OF WATER, COFFEE OR TEA ONCE DAILY 238 g 2 04/18/20 1:36 PM EST Active Acetaminophen Extra Strength 500 MG tabletIndications :Pain in right lumbar region of back,Right flank pain TAKE 1 TABLET BY MOUTH EVERY 6 HOURS NEEDED FOR MILD PAIN 30 tablet 2 04/18/20 1:36 PM EST Active Diclofenac Sodium 1 % gelIndications:Ac samish midline low back pain without sciatica Apply [...] Active Continuous Glucose Sensor (Dexcom G7 Sensor) [facility] [place] 1 Sensor AND CHANGE EVERY 10 DAYS Active Perla-dominguez 8.6 MG tabletIndications :Constipation, unspecified constipation type TAKE 1 TABLET BY MOUTH AT BEDTIME 30 tablet 3 04/18/20 25 1:36 PM EST Active Ascorbic Acid (vitamin C) 500 MG tablet take 2 tablets by mouth once daily in the morning Active glucose 4 g chewable tablet Chew 4 tablets (16 g) if needed for low blood sugar. <70 mg/dL. Recheck BG after 15 mins and repeat treatment as needed & as directed. 20 tablet 1 04/21/20 25 4:08 PM EST 2025 Active pravastatin (Pravachol) 40 MG tabletIndications :Mixed hyperlipidemia Take 1 tablet (40 mg) by mouth at bedtime. 90 tablet 3 04/21/20 25 4:08 PM EST Active Aspirin Low Dose 81 MG EC tabletIndications :Primary hypertension TAKE 1 TABLET BY MOUTH EVERY DAY 90 tablet 3 04/21/20 25 4:08 PM EST Active melatonin 5 MG tabletIndications :Obstructive sleep apnea TAKE 2 TABLETS BY MOUTH EVERY DAY AT BEDTIME NEEDED FOR SLEEP 180 tablet 3 04/21/20 25 4:08 PM EST Active Tirzepatide (Mounjaro) 7.5 MG/0.5ML solution auto-injectorIndi cations:Type 2 diabetes mellitus with stage 3b chronic kidney disease, with long-term current use of insulin (HCC) Inject 7.5 mg under the skin 1 (one) time per week. 2 mL 11 Active metFORMIN XR (Glucophage-XR) 500 MG 24 hr tablet Take 2 tablets (1,000 mg) by mouth 2 times daily. Do not crush, chew, or split. 120 tablet 11 11/102025 Active simethicone (Mylicon) 125 MG chewable tablet Chew 1 tablet (125 mg) if needed in the morning, at noon, in the evening, and at bedtime for flatulence. 60 tablet 04/18/20 25 1:31 PM EST Active insulin glargine (Lantus SoloStar) 100 UNIT/ML penIndications:Ty pe 2 diabetes mellitus with stage 3b chronic kidney disease, with long-term current use of insulin ([facility]) Inject 16 units subcutaneous daily 15 mL 11 Active gabapentin (Neurontin) 800 MG tabletIndications :Primary osteoarthritis of right knee TAKE 1 TABLET BY MOUTH EVERY 8 HOURS 90 tablet Active Aspirin Low Dose 81 MG EC tabletIndications :Primary hypertension TAKE 1 TABLET BY MOUTH EVERY DAY 90 tablet 3 024 2024 Discontinued melatonin 5 MG tabletIndications :Obstructive sleep apnea TAKE 2 TABLETS BY MOUTH EVERY DAY AT BEDTIME NEEDED FOR SLEEP 180 tablet 3 024 2024 Discontinued empagliflozin-met FORMIN ER (Synjardy XR) 12.5-1000 MG 24 hr tabletIndications :Type 2 diabetes mellitus with stage 3b chronic kidney disease, with long-term current use of insulin ([facility]) Take 2 tablets by mouth with breakfast. 60 tablet 11 025 2024 Discontinued(A lternate therapy) gabapentin (Neurontin) 800 MG tabletIndications :Primary osteoarthritis of right knee TAKE 1 TABLET BY MOUTH EVERY 8 HOURS 90 tablet 025 2024 Discontinued(R eorder (will not trigger notification to Pharmacy)) Tirzepatide (Mounjaro) 5 MG/0.5ML solution auto-injectorIndi cations:Type 2 diabetes mellitus with stage 3b chronic kidney disease, with long-term current use of insulin ([facility]) Inject 5 mg under the skin 1 (one) time per week. 2 mL 11 025 2024 Discontinued(D ose adjustment) insulin glargine (Lantus SoloStar) 100 UNIT/ML penIndications:Ty pe 2 diabetes mellitus with stage 3b chronic kidney disease, with long-term current use of insulin ([facility]) Inject 16 units subcutaneous daily 15 mL 11 025 2024 Discontinued(R eorder (will not trigger notification to Pharmacy)) insulin glargine (Lantus SoloStar) 100 UNIT/ML penIndications:Ty pe 2 diabetes mellitus with stage 3b chronic kidney disease, with long-term current use of insulin ([facility]) Inject 20 units subcutaneous daily 15 mL 11 04/18/20 1:36 PM EST 025 2024 Discontinued(R eorder (will not trigger notification to Pharmacy)) Active Problems Problem Noted Date Diagnosed Date Vertigo 02/27/2025 Assessment & Plan (02/27/2025 5:37 PM EDT): Orders: Referral to Physical Therapy; Future Chronic ulcer of great toe of left foot ([facility]/HCC ) 02/27/2025 Assessment & Plan (02/27/2025 5:37 [...] venous insufficiency 06/14/2018 Overview (11/26/2022): Followed by [facility] Compression stockings Pain managed with gabapeentin 800mg t.i.d Followed by [facility] wound care for venous stasis ulcer Assessment [...] Foot Exam: 07/2023--RISK 1 Eye Exam: Through [facility]. UTD Statin: Yes ASA: Yes GISELA/ARB: Yes [...] fat, and sodium. Exercise counseling 08/31/2024 10/20/19 25 Assessment & Plan (08/31/2024 3:22 PM EDT): [...] Encounters Date Type Department Care Team Description 05/01/2025 Refill [facility] [address] [place] [address] [facility] Primary osteoarthritis of right knee 04/26/2025 Telephone [facility] [address] [place] [address] Elena Nichols PharmD 04/26/2025 Travel 04/21/2025 Telephone [facility] [address] [facility] [place] [address] Elena Nichols PharmD 04/21/2025 Travel 04/11/2025 Orders Only GENERIC EXTERNAL DATA DEPARTMENT Provider, Generic External Data 04/10/2025 Refill [facility] [place] [address] Elena Nichols PharmD Type 2 diabetes mellitus with stage 3b chronic kidney disease, with long-term current use of insulin (HCC) 04/10/2025 Patient Outreach [facility] [address] [place] [address] [facility] Transition Of Care (Tcm) (HDF scheduled ) 04/09/2025 Refill [facility] [address] [place] [phone] [facility] Primary hypertension; Obstructive sleep apnea 04/04/2025 Telephone [facility] [address] [facility] VNA services 04/02/2025 Orders Only GENERIC EXTERNAL DATA DEPARTMENT Provider, Generic External Data 03/27/2025 Telephone [facility] [address] [place] [address] Elena Nichols PharmD 03/24/2025 Telephone [facility] [address] [place] [address] Elena Nichols PharmD 03/24/2025 Travel 03/21/2025 3:00 PM EDT Telemedicine [facility] [address] [place] [address] Elena Nichols, [place] Diabetic polyneuropathy associated with type 2 diabetes mellitus (HCC) (Primary Dx); Type 2 diabetes mellitus with stage 3b chronic kidney disease, with long-term current use of insulin ([facility]); Mixed hyperlipidemia 03/15/2025 Refill [facility] [address] [place] [address] Tg Milner FNP Constipation, unspecified constipation type 03/01/2025 Orders Only [facility] External Provider, [facility] 02/27/2025 4:00 PM EDT Office Visit [facility] [address] [place] [phone] Ingrid Lynn NP Vertigo (Primary Dx); Chronic ulcer of great toe of left foot, unspecified ulcer stage ([facility]/HCC) 02/27/2025 Telephone [facility] [address] [place] [address] Tg Milner FNP Nurse Triage 02/27/2025 Travel 02/24/[address] [address] Tg Milner FNP Provider out 03/0102/22/2025 Orders Only [facility] [address] [place] [address] Tg Milner FNP Dyspepsia (Primary Dx) 02/20/2025 Travel 02/16/2025 4:00 PM EDT Office Visit [facility] [address] [place] [phone] Melisa Jacob MD Acute midline low back pain without sciatica (Primary Dx) 02/16/2025 Orders Only [facility] [address] [place] [phone] Melisa Jacob MD 02/16/2025 Refill [facility] [address] [place] [phone] Tg Milner FNP Gastroesophageal reflux disease, unspecified whether esophagitis present 02/16/2025 Travel 02/08/2025 Refill [facility] [address] [place], [place] [phone] Tg Milner FNP Mixed hyperlipidemia 02/06/2025 Refill [facility] [address] [place] [address] Griffin[facility], [facility] Type 2 diabetes mellitus with other circulatory complication, without long-term current use of insulin ([facility]) 02/01/2025 Refill [facility] [address] [place] [address] Tg Milner, [facility] Pain in right lumbar region of back; Right flank pain 01/31/2025 Refill [facility] [address] [place] [address] Tg Milner, [employer] Primary osteoarthritis of right knee from Last [...] 05/05/2025 1:30 PM EST Office Visit [facility] [address] [place] [phone] Griffin Tg, [facility] [address] [place] [address] 05/12/2025 2:00 PM EST Telemedicine [facility] [address] [place] [phone] Elena Nichols, [place] [address] [place] [address] Health Maintenance Due Date Last Done Comments CT Colonography 1960 Colonoscopy 1960 Colorectal Cancer Screening 1960 FIT DNA/Cologuard 1960 FIT 1960 FOBT 1960 Sigmoidoscopy 1960 Hepatitis A Vaccines (1 of 2 - Risk 2-dose series) 1977 RSV Patients and Patients Aged 60 years or older (1 - Risk 50-74 years 1-dose series) 2008 Zoster Vaccines (1 of 2) 2008 Pneumococcal Vaccine: 50+ Years (2 of 2 - PCV) 09/03/2010 09/03/2009 Hepatitis B Vaccines (1 of 3 - Risk 3-dose series) 2018 Diabetes: Foot Exam 11/08/2024 11/09/2023, [...] on patient's age to complete this topic Goals Goal Patient Goal Type Associated Problems Recent Progress Patient-Stated? Author Help patients manage their type 2 diabetes Care Plan Help patients manage their type 2 diabetes No Elena Nichols, PharmD Weekly blood pressure task Care Plan Weekly blood pressure task No Agustina Nicholsee, PharmD Help patients manage their type 2 diabetes Care Plan Help patients manage their type 2 diabetes No Agustina Nicholsee, PharmD Patient has chronic kidney disease Care Plan Patient has chronic kidney disease No Agustina Nicholsee, PharmD Help patients manage their type 2 diabetes Care Plan Help patients manage their type 2 diabetes No Agustina Nicholsee, PharmD Patient has diabetic neuropathy Care Plan Patient has diabetic neuropathy No Agustina Nicholsee, PharmD Weekly blood pressure task Care Plan Weekly blood pressure task No Agustina Nicholsee, PharmD Weekly blood pressure task Care Plan Weekly blood pressure task No Agustina Nicholsee, PharmD Patient has chronic kidney disease Care Plan Patient has chronic kidney disease No Agustina Nicholsee, PharmD Patient has chronic kidney disease Care Plan Patient has chronic kidney disease No Simone Elena, PharmD Patient has diabetic neuropathy Care Plan Patient has diabetic neuropathy No Simone Elena, PharmD Patient has diabetic neuropathy Care Plan Patient has diabetic neuropathy No Agustina Nicholsee, PharmD Weekly blood pressure task Care Plan Weekly blood pressure task No Agustina Nicholsee, PharmD Weekly blood pressure task Care Plan Weekly blood pressure task No Agustina Nicholsee, PharmD Weekly blood pressure task Care Plan Weekly blood pressure task No Agustina Nicholsee, PharmD Patient has chronic kidney disease Care Plan Patient has chronic kidney disease No Simone Elena, PharmD Patient has chronic kidney disease Care Plan Patient has chronic kidney disease No Simone Elena, PharmD Patient has chronic kidney disease Care Plan Patient has chronic kidney disease No Simone Elena, PharmD Patient has diabetic neuropathy Care Plan Patient has diabetic neuropathy No Nichols Elena, PharmD Patient has diabetic neuropathy Care Plan Patient has diabetic neuropathy No Nichols, Elena, PharmD Patient has diabetic neuropathy Care Plan Patient has diabetic neuropathy No Agustina Nicholsee, PharmD Weekly blood pressure task Care Plan Weekly blood pressure task No Nichols, Elena, PharmD Weekly blood pressure task Care Plan Weekly blood pressure task No Agustina Nicholsee, PharmD Weekly blood pressure task Care Plan Weekly blood pressure task No Agustina Nicholsee, PharmD Patient has chronic kidney disease Care Plan Patient has chronic kidney disease No Agustina Nicholsee, PharmD Patient has chronic kidney disease Care Plan Patient has chronic kidney disease No Agustina Nicholsee, PharmD Patient has chronic kidney disease Care Plan Patient has chronic kidney disease No Agustina Nicholsee, PharmD Patient has diabetic neuropathy Care Plan Patient has diabetic neuropathy No Simone Elena, PharmD Patient has diabetic neuropathy Care Plan Patient has diabetic neuropathy No Agustina Nicholsee, PharmD Patient has diabetic neuropathy Care Plan Patient has diabetic neuropathy No Elena Nichols, PharmD Weekly blood pressure task Care Plan Weekly blood pressure task No Jd Jaraa, PharmD Weekly blood pressure task Care Plan Weekly blood pressure task No Jd Jaraa, PharmD Weekly blood pressure task Care Plan Weekly blood pressure task No Jd Jaraa, PharmD Patient has chronic kidney disease Care Plan Patient has chronic kidney disease No Jd Jaraa, PharmD Patient has chronic kidney disease Care Plan Patient has chronic kidney disease No Marek Lucia, PharmD Patient has chronic kidney disease Care Plan Patient has chronic kidney disease No Marek Lucia, PharmD Patient has diabetic neuropathy Care Plan Patient has diabetic neuropathy No Marek Lucia, PharmD Patient has diabetic neuropathy Care Plan Patient has diabetic neuropathy No Marek Lucia, PharmD Patient has diabetic neuropathy Care Plan Patient has diabetic neuropathy No Jd Jaraa, PharmD Weekly blood pressure task Care Plan Weekly blood pressure task No Dora Escobedo ENDOSCOPY TECHNICAN Weekly blood pressure task Care Plan Weekly blood pressure task No Dora Escobedo ENDOSCOPY TECHNICAN Weekly blood pressure task Care Plan Weekly blood pressure task No Gayatri Escobedonifer, ENDOSCOPY TECHNICAN Patient has chronic kidney disease Care Plan Patient has chronic kidney disease No Gayatri Escobedonifer ENDOSCOPY TECHNICAN Patient has chronic kidney disease Care Plan Patient has chronic kidney disease No Nita Escobedofer ENDOSCOPY TECHNICAN Patient has chronic kidney disease Care Plan Patient has chronic kidney disease No Gayatri Escobedonifer, ENDOSCOPY TECHNICAN Patient has diabetic neuropathy Care Plan Patient has diabetic neuropathy No Nita Escobedofer, ENDOSCOPY TECHNICAN Patient has diabetic neuropathy Care Plan Patient has diabetic neuropathy No Dora Escobedo ENDOSCOPY TECHNICAN Patient has diabetic neuropathy Care Plan Patient has diabetic neuropathy No Fanny, Dora, ENDOSCOPY TECHNICAN Procedures Procedure Name Priority Date/Time Associated Diagnosis Comments URINALYSIS, COMPLETE, WITH REFLEX TO CULTURE Routine 04/11/2025 11:43 AM EST CULTURE, URINE, ROUTINE Routine 04/11/2025 12:00 AM EST URINALYSIS, COMPLETE, WITH REFLEX TO CULTURE Routine [...] of left foot, unspecified ulcer stage (CMS/HCC) ([facility]) XR FOOT 3+ VIEWS LEFT Routine 03/01/2025 4:08 PM EDT CULTURE, URINE, ROUTINE Routine 02/16/2025 8:38 PM EDT XR LUMBAR SPINE 2-3 VIEWS Routine 02/16/2025 4:14 PM EDT Acute midline low back pain without sciatica URINALYSIS, COMPLETE, WITH REFLEX TO CULTURE Routine 02/16/2025 4:00 PM EDT Acute midline low back pain without sciatica POCT GLYCATED HEMOGLOBIN, TOTAL Routine 01/11/2025 2:07 [...] (ABNORMAL) Urinalysis, Complete, with Reflex to Culture (04/11/2025 11:43 AM EST) Only the most recent of3 resultswithin the time period is included. Color Urine Yellow [facility] Appearance Urine Turbid [facility] PH 6.0 5.0 - 9.0 [facility] Glucose Urine UA >=1000(A) Negative mg/dL [facility] Urine Blood Large (3+)(A) Negative [facility] Specific [place] - Urine 1.020 1.005 - 1.025 [facility] Urine Protein 100 (2+)(A) Neg-Trace mg/dL [facility] Urine Ketones Negative Negative mg/dL [facility] Nitrite Urine Negative Negative [facility] Leukocyte Esterase Urine Large (3+)(A) Negative [facility] RBC Urine 0-2 0 - 2 /HPF [facility] Urine WBC >50(A) 0 - 5 /HPF [facility] Urine Squamous Epithelial Cell 0-2 0 - 2 /HPF [facility] Urine Bacteria None Seen None Seen [facility] Hyaline Casts, Urine 0-2 0 - 2 /LPF [facility] Urine Yeast Present [facility] 04/11/2025 11:4 3 AM EST 04/11/2025 11:50 AM EST Narrative [facility] - 04/11/2025 12:13 PM EST Jaclyn Rebollar us Generic External Data Provider LAB URINE ORDERAB LES Final Result [facility] [address] [place] [address] [phone] * Culture, Urine, Routine (04/11/2025 12:00 AM EST) Only the most recent of3 resultswithin the time period is included. Urine Urine specimen from urinary conduit / Unknown 04/11/2025 04/11/2025 Comment:Urine Cath Narrative [facility] - 04/14/2025 9:20 AM EST Viviana albicans Quant > 100,000 cfu/mL Specimen Source: Urine Catheterized us Generic External Data Provider LAB MICROBIOLOGY - GENERAL ORDERABLES Final Result [facility] [address] [place] [phone] * CT Abdomen Pelvis w/o Contrast (04/02/2025 8:05 PM EST) Anatomical Region Laterality Modality Body, Pelvis, Abdomen Computed T omography 04/02/2025 8:05 PM EST Narrative 04/02/2025 8:07 PM EST [address] [address] [address] Scan Report Signed Patient: Brandt Nelson MR#: [id number] : 1960 Acct:[id number] Age/Sex: 64 / M ADM Date: 04/02/25 Loc: .ED Attending Dr: Ordering Physician: Elbert Graf MD Date of Service: 04/02/25 Procedure(s): CT abdomen pelvis wo IV con Accession Number(s): [id number] cc: Elbert Graf MD; [facility] Report Number: [id number]: Total DLP = 0.00 mGy-cm Reason for [...] in OV> 04/02/252005 DD/ 04 TD/TT: 04/02/252004 Radiation Control Specialist: Procedure Note Donotuseinterpreter, Image - 04/02/[address] [place] [address] [address] Scan Report Signed Patient: Brandt Nelson#: [id number] : 9Acct:[id number] Age/Sex: 64 / MADM Date: 04/02/25 Loc: .ED Attending Dr: Ordering Physician: Elbert Graf MD Date of Service: 04/02/25 Procedure(s): CT abdomen pelvis wo IV con Accession Number(s): [id number] cc: Elbert Graf MD; [facility] Report Number: [id number]: Total DLP = 0.00 mGy-cm Reason for [...] in OV> 04/02/252005 DD/ 04 TD/TT: 04/02/252004 Radiation Control Specialist: [facility] External Provider IMG CT PROCEDURES Edited Result - Final * (ABNORMAL) CBC auto differential (04/02/2025 4:49 PM EST) White Blood Count 8.1 4.8 - 10.8 X10*3/uL [facility] Red Blood Count 4.89 4.60 - 5.80 X10*6/uL [facility] Hemoglobin 13.8(L) 14.0 - 18.0 g/dl [facility] Hematocrit 40.7(L) 42.0 - 52.0 % [facility] Mean Corpuscular Volume 83.2 80.0 - 98.0 fL [facility] Mean Corpuscular Hemoglobin 28.2 27.0 - 33.0 pg [facility] Mean Corpuscular HGB Conc 33.9 31.0 - 36.0 g/dl [facility] Red Cell Distribution Width 12.9 11.0 - 16.0 % [facility] Platelet Count 252 160 - 400 X10*3/uL [facility] Mean Platelet Volume 9.4 9.4 - 12.4 fL [facility] Neutrophils Percent Auto 66.5 45 - 73 % [facility] Imm Gran Pct Auto 0.5(H) 0.0 - 0.4 % [facility] Lymphocytes Percent Auto 19.6(L) 20 - 40 % [facility] Monocytes Percent Auto 10.5 2 - 11 % [facility] Eosinophils Percent Auto 2.5 0 - 4 % [facility] Basophils Percent Auto 0.4 0 - 2 % [facility] NRBC Pct Auto 0.0 0.0 - 0.2 /100WBC [facility] Neutrophils Absolute Auto 5.4 2.0 - 8.3 x10*3/uL [facility] Imm Gran Abs Auto 0.04(H) 0.00 - 0.03 X10*3/uL [facility] Lymphocytes Absolute Auto 1.6 1.2 - 4.9 X10*3/uL [facility] Monocytes Absolute Auto 0.9 0.1 - 1.2 X10*3/uL [facility] Eosinophils Absolute Auto 0.2 0.0 - 0.4 X10*3/uL [facility] Basophils Absolute Auto 0.0 0.0 - 0.2 X10*3/uL [facility] NRBC Abs Auto 0.000 0.0 - 0.012 X10*3/uL [facility] 04/02/2025 4:49 PM EST 04/02/2025 4:52 PM EST us Generic External Data Provider LAB BLOOD ORDERAB LES Final Result [facility] [address] [place] [phone] * (ABNORMAL) Basic Metabolic Panel (04/02/2025 4:49 PM EST) Sodium 136 135 - 145 mmol/L [facility] Potassium 5.5(H) 3.3 - 5.1 mmol/L [facility] Chloride 103 96 - 108 mmol/L [facility] Carbon Dioxide 23 22 - 29 mmol/L [facility] Anion Gap 16 12 - 20 [facility] Urea Nitrogen (BUN) 36(H) 9 - 16 mg/dL [facility] Creatinine, Serum 1.77(H) 0.5 - 1.4 mg/dL [facility] Creatinine Clr Calc Pharmacy 46.5 [facility] Comment:eGFR (calculated fro m the MDRD study equation) and eCrCl(calculated from the Cockcroft-Gault equation) are based ondifferent parameters and may not yield comparable results.If eCrCl result is absurd, please check patient'sheight/weight. Estimated Glomerular Filt Rate 39 [facility] Comment:Chronic Kidney Disea se: Estimated GFR < 60 mL/min/1.59a4Kqbmkb Kidney Disease: Estimated GFR < 15 mL/min/1.73m2 Glucose 171(H) 60 - 115 mg/dL [facility] Calcium 9.6 8.4 - 10.2 mg/dL [facility] 04/02/2025 4:49 PM EST 04/02/2025 4:52 PM EST us Generic External Data Provider LAB BLOOD ORDERAB LES Final Result Performing Organization Address City/State/[facility] Co de Phone Number [facility] [address] [place] [phone] * Referral to Wound Clinic (03/23/2025) us Ingrid Lynn DATA INTEGRITY SPECIALIST OUTPATIENT REFERRAL ORDERABLES F inal Result * XR Foot 3+ Views Left (03/01/2025 4:08 PM EDT) Anatomical Region Laterality Modality Lower Extremities, Foot Left Radiogra phic Imaging 03/01/2025 4:08 PM EDT Narrative 03/02/2025 8:25 AM EDT [facility] [address] [place] [address] XRay Report Signed Patient: Brandt Nelson MR#: [id number] : 1960 Acct:[id number] Age/Sex: 64 / M ADM Date: 03/01/25 Loc: .[facility] Attending Dr: Moira Issa MD Ordering Physician: Moira Issa MD Date of Service: 03/01/25 Procedure(s): XR foot LT min 3V Accession Number(s): [id number] cc: Moira Issa MD; [facility] Reason for Exam: NON HEALING WOUND EXAMINATION: [...] 03/02/25 0822 DD/ 1608 TD/TT: 03/01/25 1610 Radiation Control Specialist: Procedure Note Donotuseinterpreter, Image - 03/02/2025 [facility] [address] [place] [address] XRay Report Signed Patient: Brandt Nelson#: [id number] : 9Acct:[id number] Age/Sex: 64 / MADM Date: 03/01/25 Loc: [facility] Attending Dr: Moira Issa MD Ordering Physician: Moira Issa MD Date of Service: 03/01/25 Procedure(s): XR foot LT min 3V Accession Number(s): [id number] cc: Moira Issa MD; [facility] Reason for Exam: NON HEALING WOUND EXAMINATION: [...] by Les Muro MD in OV> 03/02/25 08 DD/ 1608 TD/TT: 03/01/25 1610 Radiation Control Specialist: [facility] External Provider IMG XR PROCEDURES Edited Result - Final * XR Lumbar Spine 2-3 Views (02/16/2025 4:14 PM EDT) Anatomical Region Laterality Modality Spine, L-spine Radiographic Cheryl ging 02/16/2025 4:14 PM EDT Narrative 02/16/2025 4:45 PM EDT [address] [address] XRay Report Signed Patient: Brandt Nelson MR#: [id number] : 1960 Acct:[id number] Age/Sex: 64 / M ADM Date: 02/16/25 Loc: [facility] Attending Dr: Melisa Jacob MD Ordering Physician: Melisa Jacob MD Date of Service: 02/16/25 Procedure(s): XR lumbar spine 2-3V Accession Number(s): [id number] cc: Melisa Jacob MD Reason for Exam: [...] 02/16/25 1642 DD/ 1614 TD/TT: 02/16/25 1615 Radiation Control Specialist: Procedure Note Donotuseinterpreter, Image - 02/16/2025 [place] [address] XRay Report Signed Patient: Brandt Nelson#: [id number] : 9Acct:[id number] Age/Sex: 64 / MADM Date: 02/16/25 Loc: [facility] Attending Dr: Melisa Jacob MD Ordering Physician: Melisa Jacob MD Date of Service: 02/16/25 Procedure(s): XR lumbar spine 2-3V Accession Number(s): [id number] cc: Melisa Jacob MD Reason for Exam: [...] 02/16/25 1642 DD/ 1614 TD/TT: 02/16/25 1615 Radiation Control Specialist: Melisa Jacob MD IMG XR PROCEDURES Final Re sult * (ABNORMAL) POCT HGB A1C (01/11/2025 2:07 PM EDT) Pathologist [facility] Hemoglobin A1C 10.4(A) 4.0 - 5.7 % QC Media Lot # [id number] Lot# Expiration Date [id number] Blood 01/11/2025 2:07 PM EDT [facility] DRY HOUSE WHEELER POINT OF CARE TEST ENTER/EDIT ORDERABLES Final Result * (ABNORMAL) Lipid Panel, Standard (01/22/2024 10:21 AM EDT) Triglycerides 291(H) <150 mg/dL [facility] Comment:Desirable Triglyceri de: less than 150 mg/dLBorderline High Triglyceride 150-199 mg/dLHigh Triglyceride: 200-499 mg/dLVery High Triglyceride: greater than or equal to 5OO mg/dL Cholesterol 166 <200 mg/dL [facility] Comment:Desirable Cholestero l: less than 200 mg/dLBorderline High Cholesterol: 200-239 mg/dLHigh Cholesterol: greater than 239 mg/dL LDL Cholesterol Calculated 77 <100 mg/dL [facility] Comment:Desirable LDL: less than 100 mg/dLNear Optimal/Above Optimal LDL: 110- 129 mg/dLBorderline High LDL: 130-159 mg/dLHigh LDL: 160-189 mg/dLVery High LDL: greater than or equal to 190 mg/dL HDL Cholesterol 31(L) >40 mg/dL [facility] Comment:Desirable HDL: great er than 40 mg/dL Note: This HDL assay may give artificially low results in patients with liver disease. Blood Venous blood specimen / Unknown 01/22/2024 10:21 AM EDT 01/22/2024 11:05 AM EDT [facility] LAB BLOOD ORDERABLES Final Re sult Performing Organization Address [facility] de Phone Number [facility] [address] [place] [phone] * Hepatitis C Antibody with Reflex to HCV, RNA, Quantitative, Real-Time PCR (09/01/2022 2:59 PM EDT) Hepatitis C Antibody NON-REACT DARY NON-REACT DARY [facility] [place] [facility] [employer] Index 0.09 <1.00 [facility] [place] [facility] [employer] Comment: HCV antibody was non-reactive. There is no laboratory evidence of HCV infection. In most cases, no further action is required. However, if recent HCV exposure is suspected, a test for HCV RNA (test code 96046) is suggested. For additional information please refer to http://[email or web address]/faq/TDJ36z0 (This link is being provided for informational/ educational purposes only.) Blood Venous blood specimen / Unknown 09/01/2022 2:59 PM EDT 09/01/2022 2:59 PM EDT [facility] LAB BLOOD ORDERABLES Final Re sult [facility] [address] [facility], [place] [address] [facility] [address] [place] [address] from Last 3 Months or Most Recently Relevant to Health Maintenance Additional Health Concerns Active Problems Noted Date Diagnosed Date Help patients manage their type 2 diabetes 04/13 Weekly blood pressure task 04/13/2025 Help patients manage their type 2 diabetes 04/13 Patient has chronic kidney disease 04/13/2025 Help patients manage their type 2 diabetes 04/13 Patient has diabetic neuropathy 04/13/2025 Weekly blood pressure task 04/13/2025 Weekly blood pressure task 04/13/2025 Patient has chronic kidney disease 04/13/2025 Patient has chronic kidney disease 04/13/2025 Patient has diabetic neuropathy 04/13/2025 Patient has diabetic neuropathy 04/13/2025 Weekly blood pressure task 04/21/2025 Weekly blood pressure task 04/21/2025 Weekly blood pressure task 04/21/2025 Patient has chronic kidney disease 04/21/2025 Patient has chronic kidney disease 04/21/2025 Patient has chronic kidney disease 04/21/2025 Patient has diabetic neuropathy 04/21/2025 Patient has diabetic neuropathy 04/21/2025 Patient has diabetic neuropathy 04/21/2025 Weekly blood pressure task 04/26/2025 Weekly blood pressure task 04/26/2025 Weekly blood pressure task 04/26/2025 Patient has chronic kidney disease 04/26/2025 Patient has chronic kidney disease 04/26/2025 Patient has chronic kidney disease 04/26/2025 Patient has diabetic neuropathy 04/26/2025 Patient has diabetic neuropathy 04/26/2025 Patient has diabetic neuropathy 04/26/2025 Weekly blood pressure task 05/01/2025 Weekly blood pressure task 05/01/2025 Weekly blood pressure task 05/01/2025 Patient has chronic kidney disease 05/01/2025 Patient has chronic kidney disease 05/01/2025 Patient has chronic kidney disease 05/01/2025 Patient has diabetic neuropathy 05/01/2025 Patient has diabetic neuropathy 05/01/2025 Patient has diabetic neuropathy 05/01/2025 Weekly blood pressure task 05/01/2025 Weekly blood pressure task 05/01/2025 Weekly blood pressure task 05/01/2025 Patient has chronic kidney disease 05/01/2025 Patient has chronic kidney disease 05/01/2025 Patient has chronic kidney disease 05/01/2025 Patient has diabetic neuropathy 05/01/2025 Patient has diabetic neuropathy 05/01/2025 Patient has diabetic neuropathy 05/01/2025 Insurance [facility] JAIL OPTIONS (O D-SNP) [facility] STANDARD Care Teams Distilling Department Supervisor Relationship Specialty Start Date End Date Griffin Tg, DRY HOUSE WHEELER [address] [place] [address] PCP - General Family Medicine 04/28/22 Elena Nichols, GaleD [address] [place] [address] Pharmacist Pharmacy 12/13/24
--- OUTSIDE RECORDS SUMMARY | 2025-05-02 10:28 | XMS_ITS | Encounter Summary ---
Author Organization [facility] Address [address] [place] [address] Care Team Providers Care Mail Examiner Name Role Phone [facility] Primary Care Provider [phone] Elena Nichols PharmD Unavailable [phone] Reason for Visit * Reason Comments Med Refill Encounter Details Date Type Department Care Team ([facility] Contact Info) Description 12/25/2022 Refill [facility] [address] [place] [phone] [phone] Type 2 diabetes mellitus without complication, without long-term current use of insulin ([facility]) Social History Tobacco Use Types [...] Description 05/05/2025 1:30 PM EST Office Visit [facility] [address] [place] [address] [phone] [facility] [address] [place] [address] 05/12/2025 2:00 PM EST Telemedicine [facility] [address] [place] [address] Elena Nichols PharmD [address] [place] [address] documented as of this encounter Visit Diagnoses Diagnosis Type 2 diabetes mellitus without complication, without long-term current use of insulin (HCC) documented in this encounter Additional Health Concerns Assessment Noted Time PHQ-9 Depression Total Score: 0 11/25/19 23 3:32 PM EDT documented as of this encounter Care Teams Mail Examiner Relationship Specialty Start Date End Date Tg Milner FNP [address] [place] [address] PCP - General Family Medicine 04/28/22 Elena Nichols PharmD [address] [place] [address] Pharmacist Pharmacy 12/13/24 documented as of this encounter
--- OUTSIDE RECORDS SUMMARY | 2025-05-02 10:28 | XMS_ITS | Encounter Summary ---
Author Organization [employer] Address [address] [facility] [address] [address] [place] [address] Care Team Providers Care Battery Installer Name Role Phone Annia [facility] Primary Care Provider [phone] Elena Nichols PharmD Unavailable [phone] Encounter Details Date Type Department Care Team ([facility] st Contact Info) Description 02/22/2025 Orders Only [facility] [address] [place] [address] [place] [facility] [address] [place] [address] Dyspepsia (Primary Dx) Social History Tobacco Use [...] Description 05/05/2025 1:30 PM EST Office Visit [facility] [address] [place] [address] Tg Milner FNP [address] [place] [address] 05/12/2025 2:00 PM EST Telemedicine [address] [address] Elena Nichols PharmD [address] [place] [address] documented as of this encounter Visit Diagnoses Diagnosis Dyspepsia- Primary Dyspepsia and other specified disorders of function of stomach documented in this encounter Additional Health Concerns Assessment Noted Time PHQ-9 Depression Total Score: 0 01/12/20 25 2:08 PM EDT documented as of this encounter Care Teams Battery Installer Relationship Specialty Start Date End Date Tg Milner FNP [address] [place] [phone] PCP - General Family Medicine 04/28/22 Elena Nichols PharmD [address] [place] [address] Pharmacist Pharmacy 12/13/24 documented as of this encounter
--- OUTSIDE RECORDS SUMMARY | 2025-05-02 10:28 | XMS_ITS | Encounter Summary ---
Author Organization [employer] Address [address] [facility] 7t [place] [address] Care Team Providers Care Cloud Systems Architect Name Role Phone Tg Milner [facility] Primary Care Provider [phone] Elena Nichols PharmD Unavailable [phone] Encounter Details Date Type Department Care Team ([facility] st Contact Info) Description 01/16/2025 Telephone [facility] [address] [place], [place] [phone] [place] [facility] [address] [place] [address] Social History Tobacco Use Types Packs/Day Years [...] today's appointment. Requesting a call back at [phone] documented in this encounter Plan of Treatment Upcoming Encounters Date Type Department Care Team (Late st Contact Info) Description 05/05/2025 1:30 PM EST Office Visit [facility] [address] [place] [address] Tg Milner FNP [address] [place] [address] 05/12/2025 2:00 PM EST Telemedicine [facility] [address] [place] [address] Elena Nichols, GaleD [address] [place] [address] documented as of this encounter Visit Diagnoses Not on filedocumented in this encounter Additional Health Concerns Assessment Noted Time PHQ-9 Depression Total Score: 0 01/12/20 25 2:08 PM EDT documented as of this encounter Care Teams Cloud Systems Architect Relationship Specialty Start Date End Date Tg Milner FNP [address] [place] [address] PCP - General Family Medicine 04/28/22 Elena Nichols, Navarro [address] [place] [address] Pharmacist Pharmacy 12/13/24 documented as of this encounter
--- OUTSIDE RECORDS SUMMARY | 2025-05-02 10:28 | XMS_ITS | Clinical Summary ---
Author Organization [address] [place] [address] Address [address] [place] [address] Phone Care Team Providers Care Horse Racing Analyst Name Role Phone [facility] Primary Care Provider [phone] Allergies No known active allergies Medications acetaminophen [...] mmol/L LAB CHEMISTRY METHOD 09/12/2024 8:[address] [facility] Potassium 4.3 3.5 - 5.5 mmol/L LAB CHEMISTRY METHOD 09/12/2024 8:[address] [facility] Chloride 100 96 - 110 mmol/L LAB CHEMISTRY METHOD 09/12/2024 8:[address] [facility] CO2 25 21 - 32 mmol/L LAB CHEMISTRY METHOD 09/12/2024 8:[address] [facility] Anion Gap 7 3 - 11 LAB CHEMISTRY METHOD 09/12/2024 8:[address] [facility] Glucose 216(H) 70 - 100 mg/dL LAB CHEMISTRY METHOD 09/12/2024 8:[address] [facility] BUN 31(H) 5 - 25 mg/dL LAB CHEMISTRY METHOD 09/12/2024 8:[address] [facility] Creatinine 1.87(H) 0.70 - 1.30 mg/dL LAB CHEMISTRY METHOD 09/12/2024 8:05 PM EDT [facility] eGFR 39(L) >=60 mL/min/1. 73m2 LAB CHEMISTRY METHOD 09/12/2024 8:05 PM EDT [facility] Comment:Calculation based on the Chronic Kidney Disease Epidemiology Collaboration (CKD-EPI) equation refit without adjustment for race. BUN/Creatinine Ratio 16.6 LAB CHEMISTRY METHOD 09/12/2024 8:05 PM EDT [facility] Calcium 9.7 8.5 - 10.5 mg/dL LAB CHEMISTRY METHOD 09/12/2024 8:05 PM EDT [facility] Blood Venous blood specimen / Unknown Venipuncture / Unknown 09/12/2024 7:05 PM EDT 09/12/2024 7:34 PM EDT us Paloma Perry MD LAB BLOOD ORDERABLES Fin al Result [facility] [address] [place] [address], from Last 3 Months or Most Recently Relevant to Health Maintenance Insurance [facility] OPTIONS Member Subscriber Plan / Payer (Ef fective 2024-Present) Name:Brandt Nelson Relation to Subscriber:Self Name:Brandt Nelson Payer ID:[id number] Group ID:Not on file Type:Not on file Address: [address] [place] [address] Care Teams Horse Racing Analyst Relationship Specialty Start Date End Date Annia Tg [address] [facility] [address] [place] [address] PCP - General 01/05/24
--- OUTSIDE RECORDS SUMMARY | 2025-05-02 10:28 | XMS_ITS | Encounter Summary ---
Author Organization [employer] Address [address] [facility] 7t [place] [address] Care Team Providers Care School Photograph Editor Name Role Phone Annia [facility] Primary Care Provider Elena Nichols PharmD Unavailable [phone] Reason for Visit * Reason Comments Med Refill Encounter Details Date Type Department Care Team ([facility] Contact Info) Description 08/31/2024 Refill [facility] [address] [place], [place] [phone] [place] [facility] [address] [place] [address] Primary hypertension Social History Tobacco Use Types [...] Description 05/05/2025 1:30 PM EST Office Visit [facility] [address] [place] [address] Tg Milner FNP [address] [place] [address] 05/12/2025 2:00 PM EST Telemedicine [facility] [address] [place] [address] Elena Nichols PharmD [address] [place] [address] documented as of this encounter Visit Diagnoses Diagnosis Primary hypertension Unspecified essential hypertension documented in this encounter Additional Health Concerns Assessment Noted Time PHQ-9 Depression Total Score: 0 07/22/19 25 10:03 AM EST documented as of this encounter Care Teams School Photograph Editor Relationship Specialty Start Date End Date Tg Milner FNP [address] [place] [address] PCP - General Family Medicine 04/28/22 Elena Nichols PharmD [address] [place] [address] Pharmacist Pharmacy 12/13/24 documented as of this encounter
--- OUTSIDE RECORDS SUMMARY | 2025-05-02 10:28 | XMS_ITS | Encounter Summary ---
Author Organization [employer] Address [address] [facility] 7 [place] [address] Care Team Providers Care Director Of Maternity Services Name Role Phone Annia [facility] Primary Care Provider [phone] Elena Nichols PharmD Unavailable [phone] Reason for Visit * Reason Comments Med Refill Encounter Details Date Type Department Care Team ([facility] st Contact Info) Description 07/01/2023 Refill [facility] [address] [place] [address] [place] [facility] [address] [place] [address] Primary osteoarthritis of right knee Social History [...] Description 05/05/2025 1:30 PM EST Office Visit [facility] [address] [place] [address] Tg Milner FNP [address] [place] [address] 05/12/2025 2:00 PM EST Telemedicine [facility] [address] [place] [address] Elena Nichols PharmD [address] [place] [address] documented as of this encounter Visit Diagnoses Diagnosis Primary osteoarthritis of right knee documented in this encounter Additional Health Concerns Assessment Noted Time PHQ-9 Depression Total Score: 0 11/25/19 23 3:32 PM EDT documented as of this encounter Care Teams Director Of Maternity Services Relationship Specialty Start Date End Date Tg Milner FNP [address] [place] [address] PCP - General Family Medicine 04/28/22 Elena Nichols PharmD [address] [place] [address] Pharmacist Pharmacy 12/13/24 documented as of this encounter
--- OUTSIDE RECORDS SUMMARY | 2025-05-02 10:28 | XMS_ITS | Encounter Summary ---
Author Organization [employer] Address [address] [facility] 7t [place] [address] Care Team Providers Care Evaporator Repairer Name Role Phone Annia [facility] Primary Care Provider [phone] Elena Nichols PharmD Unavailable [phone] Reason for Visit * Reason Onset Date Comments Med Refill 05/01/2025 Encounter Details Date Type Department Care Team (Late st Contact Info) Description 05/01/2025 Refill [facility] [address] [place], [place] [phone] [facility] [address] [place] [address] Primary osteoarthritis of right knee Social History [...] encounter Miscellaneous Notes * Telephone Encounter - Dora Escobedo LPN - 05/01/2025 2:58 PM EST CLINIC MANAGER checked on 05/01/25. Last seen 02/27/25. documented in this encounter Plan of Treatment Upcoming Encounters Date Type Department Care Team (Late st Contact Info) Description 05/05/2025 1:30 PM EST Office Visit [facility] [address] [place] [address] [facility] [address] [place] [address] 05/12/2025 2:00 PM EST Telemedicine [facility] [address] [place] [address] Elena Nichols PharmD [address] [place] [address] documented as of this encounter Goals Goal Patient Goal Type Associated Problems Recent Progress Patient-Stated? Author Help patients manage their type 2 diabetes Care Plan Help patients manage their type 2 diabetes No Elena Nichols PharmD Weekly blood pressure task Care Plan Weekly blood pressure task No Nichols, Elena, PharmD Help patients manage their type 2 [...] Plan Weekly blood pressure task No Agustina Nichlosee, PharmD Weekly blood pressure task Care Plan [...] Care Plan Patient has diabetic neuropathy No Agustian Nicholsee, PharmD Patient has diabetic neuropathy Care [...] Care Plan Weekly blood pressure task No Simone Eelna, PharmD Patient has chronic kidney disease Care Plan Patient has chronic kidney disease No Siomne Elena, PharmD Patient has chronic kidney disease Care Plan Patient has chronic kidney disease No Simone Elena, PharmD Patient has chronic kidney disease Care Plan Patient has chronic kidney disease No Elena Nichols, PharmD Patient has diabetic neuropathy Care Plan Patient has diabetic neuropathy No Agustina Nicholsee, PharmD Patient has diabetic neuropathy Care Plan Patient has diabetic neuropathy No Simone Elena, PharmD Patient has diabetic neuropathy Care Plan Patient has diabetic neuropathy No Agustina Nicholsee, PharmD Weekly blood pressure task Care Plan Weekly blood pressure task No Marek Lucia, PharmD Weekly blood pressure task Care Plan Weekly blood pressure task No Marek Lucia, PharmD Weekly blood pressure task Care Plan Weekly blood pressure task No Marek Lucia, PharmD Patient has chronic [...] has diabetic neuropathy No Jd Jaraa, PharmD Patient has diabetic neuropathy Care Plan Patient has diabetic neuropathy No Jd Jaraa, PharmD Weekly blood pressure task Care Plan Weekly blood pressure task No Nita Escobedofer, POLICE GUARD Weekly blood pressure task Care Plan Weekly blood pressure task No Gayatri Escobedonifer, POLICE GUARD Weekly blood pressure task Care Plan Weekly blood pressure task No FannyGayatriDora, POLICE GUARD Patient has chronic kidney disease Care Plan Patient has chronic kidney disease No Gayatri Escobedonifer, POLICE GUARD Patient has chronic kidney disease Care Plan Patient has chronic kidney disease No Nita Escobedofer POLICE GUARD Patient has chronic kidney disease Care Plan Patient has chronic kidney disease No Gayatri Escobedonifer POLICE GUARD Patient has diabetic neuropathy Care Plan Patient has diabetic neuropathy No Gayatri Escobedonifer POLICE GUARD Patient has diabetic neuropathy Care Plan Patient has diabetic neuropathy No FannyGayatri moctezumanifer, POLICE GUARD Patient has diabetic neuropathy Care Plan Patient has diabetic neuropathy No Dora Escobedo POLICE GUARD documented as of this encounter Visit Diagnoses Diagnosis Primary osteoarthritis of right knee documented in this encounter Additional Health Concerns Active Problems Noted Date [...] neuropathy 05/01/2025 Patient has diabetic neuropathy 05/01/2025 Assessment Noted Time PHQ-9 Depression Total Score: 0 01/12/20 25 2:08 PM EDT documented as of this encounter Care Teams Evaporator Repairer Relationship Specialty Start Date End Date Tg Milner FNP [address] [place] [address] PCP - General Family Medicine 04/28/22 Elena Nichols, GaleD [address] [place] [address] Pharmacist Pharmacy 12/13/24 documented as of this encounter
--- OUTSIDE RECORDS SUMMARY | 2025-05-02 10:28 | XMS_ITS | Encounter Summary ---
Author Organization [employer] [facility] Address [address] [place] [address] 7 [place] [address] Care Team Providers Care Sign Installer Name Role Phone Annia [facility] Primary Care Provider [phone] Elena Nichols PharmD Unavailable [phone] Reason for Visit * Reason Comments Med Refill Encounter Details Date Type Department Care Team ([facility] Contact Info) Description 12/22/2022 Refill [facility] [address] [place] [address] [address] [facility] 230 [place] [address] Primary hypertension Social History Tobacco Use Types [...] Upcoming Encounters Date Type Department Care Team ([facility] Contact Info) Description 05/05/2025 1:30 PM EST Office Visit [facility] [place] [address] [facility] [address] [place] [address] 05/12/2025 2:00 PM EST Telemedicine [facility] [address] [place] [address] Elena Nichols, [place] [address] documented as of this encounter Visit Diagnoses Diagnosis Primary hypertension Unspecified essential hypertension documented in this encounter Additional Health Concerns Assessment Noted Time PHQ-9 Depression Total Score: 0 11/25/19 23 3:32 PM EDT documented as of this encounter Care Teams Sign Installer Relationship Specialty Start Date End Date Tg Milner [facility] [place] [address] PCP - General Family Medicine 04/28/22 Elena Nichols, Navarro [facility] [place] [address] Pharmacist Pharmacy 12/13/24 documented as of this encounter
--- OUTSIDE RECORDS SUMMARY | 2025-05-02 10:28 | XMS_ITS | Encounter Summary ---
Author Organization [employer] Address [address] [facility] [address] 7t [place] [address] Care Team Providers Care Supervisor Hide House Name Role Phone Tg Milner HORSE TRADER Primary Care Provider [phone] Elena Nichols PharmD Unavailable [phone] Encounter Details Date Type Department Care Team ([facility] st Contact Info) Description 04/17/2023 Abstract [facility] [address] [place] [address] Addis Hathaway Social History Tobacco Use Types [...] Description 05/05/2025 1:30 PM EST Office Visit [facility] [address] [place] [address] Tg Milner [address] [address] 05/12/2025 2:00 PM EST Telemedicine [facility] [address] [place] [address] Elena Nichols PharmD [address] [place] [address] documented as of this encounter Visit Diagnoses Not on filedocumented in this encounter Additional Health Concerns Assessment Noted Time PHQ-9 Depression Total Score: 0 11/25/19 3:32 PM EDT documented as of this encounter Care Teams Supervisor Hide House Relationship Specialty Start Date End Date Tg Milner [facility] [address] [place] [address] PCP - General Family Medicine 04/28/22 Elena Nichols PharmD [address] [place] [address] Pharmacist Pharmacy 12/13/24 documented as of this encounter
--- OUTSIDE RECORDS SUMMARY | 2025-05-02 10:29 | XMS_ITS | Encounter Summary ---
Author Organization [employer] [facility] Address [address] [place] [address] [place], [place] [address] Care Team Providers Care Final Inspector Movement Assembly Name Role Phone Tg Milner [facility] Primary Care Provider [phone] Elena Nichols PharmD Unavailable [phone] Encounter Details Date Type Department Care Team (Late Contact Info) Description 06/03/[address] [address] [place], [address] [address] Social History Tobacco Use Types Packs/Day Years [...] Description 05/05/2025 1:30 PM EST Office Visit [address] [address] 05/12/2025 2:00 PM EST Telemedicine [address] [address] Elena Nichols, PharmD 230 [place] [address] documented as of this encounter Visit Diagnoses Not on filedocumented in this encounter Care Teams Final Inspector Movement Assembly Relationship Specialty Start Date End Date [place] KRISTY Mas [address] [place] [address] PCP - General Family Medicine 04/28/22 Elena Nichols PharmD 230 [place] [address] Pharmacist Pharmacy 12/13/24 documented as of this encounter
--- OUTSIDE RECORDS SUMMARY | 2025-05-02 10:29 | XMS_ITS | Encounter Summary ---
Author Organization [employer] Address [address] [place] [address] 7 [place] [address] Care Team Providers Care Aids Nurse Name Role Phone Annia [facility] Primary Care Provider [phone] Elena Nichols PharmD Unavailable [phone] Reason for Visit * Reason Onset Date Comments Medication Question 05/06/2022 new script 05/06/2022 Encounter Details Date Type Department Care Team ([facility] st Contact Info) Description 05/06/2022 Telephone [facility] MED[facility]INE 230 [place] [address] [place] [facility] 230 [place] [address] Medication Question; new script Social History Tobacco [...] Trulicity .75, 1.5 or 3mg. PCP ESTELLA [place] * Telephone Encounter - Nany Gann - 05/06/2022 2:08 PM EST Tc from pt requesting active medications. Pt will be traveling to [place] as of May 19nd unsure on the exact date that will be returning. Stated will be returning after the new years but has yet to establish a date. PCP TELEVISION MAINTENANCE WORKER [place] documented in this encounter Plan of Treatment Upcoming Encounters Date Type Department Care Team (Late st Contact Info) Description 05/05/2025 1:30 PM EST Office Visit [facility] MEDICINE [address] [place] [address] Tg Milner FNP [address] [place] [address] 05/12/2025 2:00 PM EST Telemedicine [facility] MEDICINE [address] [place] [address] Elena Nichols PharmD [address] [place] [address] documented as of this encounter Visit Diagnoses Diagnosis Type 2 diabetes mellitus without complication, without long-term current use of insulin (HCC) documented in this encounter Care Teams Aids Nurse Relationship Specialty Start Date End Date Tg Milner FNP [address] [place] [address] PCP - General Family Medicine 04/28/22 Elena Nichols PharmD [address] [place] [address] Pharmacist Pharmacy 12/13/24 documented as of this encounter
--- OUTSIDE RECORDS SUMMARY | 2025-05-02 10:29 | XMS_ITS | Encounter Summary ---
Author Organization [employer] Address [address] [facility] 7t [place] [address] Care Team Providers Care Special Needs Nanny Name Role Phone Tg Milner STILL WORKER HELPER Primary Care Provider Elena Nichols PharmD Unavailable [phone] Reason for Visit * Reason Comments Med Refill Encounter Details Date Type Department Care Team ([facility] st Contact Info) Description 10/04/2024 Refill [facility] 230 [place] [address] Melisa Jacob MD 230 [place] [address] Pain in right lumbar region of back; [...] Description 05/05/2025 1:30 PM EST Office Visit [facility] [address] [place] [address] Tg Milner [address] [address] 05/12/2025 2:00 PM EST Telemedicine [facility] [address] [place] [address] Elena Nichols PharmD [address] [place] [address] documented as of this encounter Visit Diagnoses Diagnosis Pain in right lumbar region of back Right flank pain Abdominal pain, unspecified site documented in this encounter Additional Health Concerns Assessment Noted Time PHQ-9 Depression Total Score: 0 07/22/19 25 10:03 AM EST documented as of this encounter Care Teams Special Needs Nanny Relationship Specialty Start Date End Date Tg Milner [facility] [address] [place] [address] PCP - General Family Medicine 04/28/22 Elena Nichols PharmD [address] [place] [address], [place] [address] Pharmacist Pharmacy 12/13/24 documented as of this encounter
--- OUTSIDE RECORDS SUMMARY | 2025-05-02 10:29 | XMS_ITS | Encounter Summary ---
Author Organization [employer] Address [address] [facility] 7 [place] [address] Care Team Providers Care Chief Revenue Officer Name Role Phone [facility] Primary Care Provider [phone] Elena Nichols PharmD Unavailable [phone] Reason for Visit * Reason Comments Med Refill Encounter Details Date Type Department Care Team ([facility] Contact Info) Description 02/16/2025 Refill [facility] 230 [place], [place] [phone] [facility] 230 [place] [address] Gastroesophageal reflux disease, unspecified whether esophagitis present [...] Description 05/05/2025 1:30 PM EST Office Visit [facility] [address] [place] [address] Tg Milner FNP [address] [place] [address] 05/12/2025 2:00 PM EST Telemedicine [facility] [address] [place] [address] Elena Nichols PharmD [address] [place] [address] documented as of this encounter Visit Diagnoses Diagnosis Gastroesophageal reflux disease, unspecified whether esophagitis present documented in this encounter Additional Health Concerns Assessment Noted Time PHQ-9 Depression Total Score: 0 01/12/20 25 2:08 PM EDT documented as of this encounter Care Teams Chief Revenue Officer Relationship Specialty Start Date End Date Tg Milner FNP [address] [place] [address] PCP - General Family Medicine 04/28/22 Elena Nichols PharmD [address] [place] [address] Pharmacist Pharmacy 12/13/24 documented as of this encounter
--- OUTSIDE RECORDS SUMMARY | 2025-05-02 10:29 | XMS_ITS | Encounter Summary ---
Author Organization [employer] Address [address] [place] [address] Care Team Providers Care Electrostatic Paint Operator Name Role Phone Annia [facility] Primary Care Provider [phone] Elena Nichols PharmD Unavailable [phone] Reason for Visit * Reason Comments Med Refill Encounter Details Date Type Department Care Team (Late st Contact Info) Description 06/18/2022 Refill [facility] [address] [place] [address] [place] Tg [facility] 230 [place] [address] Type 2 diabetes mellitus without complication, without long-term current use of insulin ([facility]) Social History Tobacco Use Types [...] 05/05/2025 1:30 PM EST Office Visit [facility] [address] [place] [address] [place] Tg [facility] 230 [place] [address] 05/12/2025 2:00 PM EST Telemedicine [facility] [address] [place] [address] Elena Nichols, PharmD 230 [place] [address] documented as of this encounter Visit Diagnoses Diagnosis Type 2 diabetes mellitus without complication, without long-term current use of insulin (HCC) documented in this encounter Care Teams Electrostatic Paint Operator Relationship Specialty Start Date End Date [place] Tg [facility] [address] [place] [address] PCP - General Family Medicine 04/28/22 Elena Nichols, GaleD [address] [place] [address] Pharmacist Pharmacy 12/13/24 documented as of this encounter
--- OUTSIDE RECORDS SUMMARY | 2025-05-02 10:29 | XMS_ITS | Encounter Summary ---
Author Organization [employer] Address [address] [place] [address] 7 [place] [address] Care Team Providers Care Senior Informatica Etl Developer Name Role Phone Tg Milner HAND BASEBALL SEWER Primary Care Provider [phone] Elena Nichols PharmD Unavailable [phone] Reason for Referral * Consultation (Routine) - Authorized Specialty Diagnoses / Procedures Referred By Contac t Referred To Contact Pharmacy Diagnoses Type 2 diabetes mellitus with other circulatory complication, with long-term current use of insulin (HCC) Jennifer Quinn MD [address] [place] [address] Phone: tel: fax: Referral ID Status Reason Start Date Expiration Date Visits Requested Visits Authorized [id number] Authorized Consult and Treat 2024 2025 6 6 Encounter Details Date Type Department Care Team ([facility] st Contact Info) Description 2024 Orders Only [facility] MED[facility] [address] [place] [phone] Jennifer Quinn MD [address] [place] [address] [phone] Type 2 diabetes mellitus with other circulatory [...] Description 05/05/2025 1:30 PM EST Office Visit [facility] MED[facility] [address] [place] [address] [place], [place], HAND BASEBALL SEWER 230 [place] [address] 05/12/2025 2:00 PM EST Telemedicine [facility] [address] [place] [address] Elena Nichols, Navarro 230 [place] [address] Scheduled Referrals Name Type Priority Associated Diagnoses Orde r Schedule Referral to Pharmacy CDTM Outpatient Referral Routine Type 2 diabetes mellitus with other circulatory complication, with long-term current use of insulin ([facility]) Ordered: 2024 documented as of this encounter Visit Diagnoses Diagnosis Type 2 diabetes mellitus with other circulatory complication, with long-term current use of insulin ([facility])- Primary documented in this encounter Additional Health Concerns Assessment Noted Time PHQ-9 Depression Total Score: 8 10/20/19 11:47 AM EDT documented as of this encounter Care Teams Senior Informatica Etl Developer Relationship Specialty Start Date End Date [place] FNP 230 [place] [address] PCP - General Family Medicine 04/28/22 Elena Nichols PharmD [address] [place] [address] Pharmacist Pharmacy 12/13/24 documented as of this encounter
--- OUTSIDE RECORDS SUMMARY | 2025-05-02 10:29 | XMS_ITS | Encounter Summary ---
Author Organization [employer] [facility] Address [address] [place] [address], [place] [address] Care Team Providers Care Marketing Manager Health Communications Name Role Phone Annia [facility] Primary Care Provider [phone] Elena Nichols PharmD Unavailable [phone] Encounter Details Date Type Department Care Team (Late st Contact Info) Description 07/10/2022 Orders Only [facility] MEDICINE [address] [place] [address] Chante Mackey LPN Social History Tobacco Use [...] Description 05/05/2025 1:30 PM EST Office Visit [facility] MEDICINE [address] [place] [address] Annia, TgKRISTY [address] [place] [address] 05/12/2025 2:00 PM EST Telemedicine [facility] MEDICINE [address] [place] [address] Elena Nichols, GaleD 230 [place] [address] documented as of this encounter Visit Diagnoses Not on filedocumented in this encounter Care Teams Marketing Manager Health Communications Relationship Specialty Start Date End Date Annia Tg, DESK OFFICER 230 [place] [address] PCP - General Family Medicine 04/28/22 Elena Nichols, Navarro [address] [place] [address] Pharmacist Pharmacy 12/13/24 documented as of this encounter
== END ==
LOC: HO.CARD 09:36
PROVIDERS: Visit Provider Internal Medicine
DX: Z01.810 Encounter for preprocedural cardiovascular examination (principal); E11.65 Type 2 diabetes mellitus with hyperglycemia
CPT/HCPCS: 78452; 93017; A9500; J0280; J2785

== ENCOUNTER → 2025-05-02 09:40 | Outpatient (BNV) | payer OTHER, SELFPAY | DX: Z01.810 Encounter for preprocedural cardiovascular examination (principal) | CPT/HCPCS: 78452; 93016; 93018 ==

== ENCOUNTER 2025-05-05 13:52 | Outpatient (AMB) | payer OTHER, SELFPAY ==
--- NOTE | 2025-05-05 14:02 | MHC.OFFVIS ---
Intake Visit Reasons: discuss SP Tube / cath change(set) Intake Note: Reason for Visit: Discussion on plan of Care SP Tube/Nursing Catheter Change Urology Meds: Vitamin C, Doxazosin, Finasteride, Methenamine Blood Thinners: Aspirin Labs: A1C- 11.4 (03/01/25) Urine Culture: 04/11/2025 Imaging: Abd/Pel- 04/02/2025 Last PVR: Ophthalmic Tech Required: No Accompanied by: Self / Same As Patient Allergies No Known Allergies (No Known Allergies*) Allergy (Verified 05/05/25 14:05) HPI Comments Details: Brandt is a pleasant male. He is seen for the following urologic conditions - balanitis, phimosis - urinary retention Voiding trial failure x2 Cystoscopy large median lobe Has been on catheter exchange for over six-month Prior discussion regarding suprapubic tube six-month ago Completed cardiac stress test normal Per Current Dexcom CGM 7% Urinary retention 10/23 urinary retention Seen in emergency room 1500 cc was associated with bowel constipation Background diabetes Phimosis Diabetic Most recent HbA1c 8.0 Recurrent phimosis with difficulty retracting foreskin and cracking with bleeding Recommend circumcision [facility] Medical History Osteomyelitis DM2 (diabetes mellitus, type 2) Essential hypertension Right lumbar radiculopathy Arthritis of both knees Balanitis Type 2 diabetes mellitus with polyneuropathy Hyperlipidemia LDL goal <100 Obesity due to excess calories Type 2 diabetes mellitus with hyperglycemia, with long-term current use of insulin Surgical History H/O colonoscopy Hx of tonsillectomy Hx of appendectomy Family History Father No problems noted. 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[employer] Review of Systems Const Denies chills and Denies fever(s) Card Reports no additional complaints and Denies syncope Resp Denies cough GI Denies abdominal pain and Denies heartburn Reports as per HPI and Denies change in libido Neuro Denies syncope Psych Denies change in libido Endo Denies change in libido Physical Exam Const General: cooperative, healthy appearing, comfortable and no acute distress Orientation/consciousness: patient oriented x3 HEENT Face and sinus: Yes normal facial exam Mouth: moist mucous membranes Neck Neck: Yes normal visual inspection, Yes full ROM and Yes trachea midline Chest Chest palpation & inspection: normal inspection of the chest Resp Effort & Inspection: normal respiratory effort, able to speak in complete sentences and no respiratory distress GI Inspection: Yes normal to inspection Back/Spine/Pelvis Cervical Spine: normal cervical lordosis Thoracic/Lumbar Spine: thoracic and lumbar spine normal to inspection Skin General skin exam: no rashes or lesions noted Neuro General: patient oriented x3, gait normal, tone normal and moves all extremities Extrem General: Yes normal to inspection and Yes capillary refill normal Office Procedures Bladder/Catheter Procedure Details: 18Fr coude catheter with flip valve removed. New 18Fr coude catheter with 10ml and flip valve inserted. Patient tolerated removal and insertion. Plan to f/u in 3-4 weeks for a cath change with nursing. [id number] of bladder tube Procedure code (CPT) selection complete Assessment & Plan Assessment & Plan (1) Urinary retention with incomplete bladder emptying: Code(s): R33.9 - Retention of urine, unspecified Category: Medical Plan Schedule procedure GreenLight laser with suprapubic tube placement Orders: Orders AMB Bladder/Catheter Procedure Today R33.9 - Retention of urine, unspecified Patient Instructions: This note is constructed using voice recognition software. While every effort has been made to ensure accuracy nurse receptionist errors may have been included. Imaging studies, laboratory and physical exam results were discussed and reviewed in detail. No major barriers to patient understanding were identified. An opportunity to ask questions regarding the treatment plan was provided. All questions were answered. The patient expressed understanding and agreement with the above treatment plan. The patient is aware they should contact our office by phone for worsening of their current condition or the appearance of new urologic symptoms. Compliance is encouraged with any medications and followup testing that is ordered. It is a privilege to participate in the urologic care of your patient. If you have any questions or concerns regarding treatment for the above conditions, or other urologic issues, please do not hesitate to contact me. The office telephone contact is [phone]. Sincerely, Dr Moy Jarrell MD, [facility] - Urology Compassionate Specialist Care for the Genitourinary System Coding Level of Care Code Est Pt Level 3 (97182) Complex visit Add On G2211 Diagnoses Urinary retention with incomplete bladder emptying R33.9 CPT Codes Bladder/Catheter Procedure - CPT: 86914-Mlgjpm of bladder tube ([id number])
--- OUTSIDE RECORDS SUMMARY | 2025-05-05 18:06 | XMS_ITS | Encounter Summary ---
Author Organization [employer] Address [address] [address] [facility] 7t [place] [address] Care Team Providers Care Flight Engineer Helicopter Name Role Phone Annia [facility] Primary Care Provider [phone] Elena Nichols PharmD Unavailable [phone] Encounter Details Date Type Department Care Team ([facility] st Contact Info) Description 02/22/2025 Orders Only [facility] WALK-[facility]ENTER 230 [place] [address] [place] [facility] 230 [place] [address] Dyspepsia (Primary Dx) Social History Tobacco Use [...] Care Team (Late st Contact Info) Description 05/12/2025 2:00 PM EST Telemedicine [facility] MEDICINE [address] [place] [address] Elena Nichols PharmD [address] [place] [address] 06/12/2025 1:45 PM EST Office Visit [facility] MEDICINE [address] [place] [address] Tg Milner FNP [address] [place] [address] documented as of this encounter Visit Diagnoses Diagnosis Dyspepsia- Primary Dyspepsia and other specified disorders of function of stomach documented in this encounter Additional Health Concerns Assessment Noted Time PHQ-9 Depression Total Score: 0 01/12/20 25 2:08 PM EDT documented as of this encounter Care Teams Flight Engineer Helicopter Relationship Specialty Start Date End Date Tg Milner FNP [address] [place] [address] PCP - General Family Medicine 04/28/22 Elena Nichols PharmD [address] [place] [address] Pharmacist Pharmacy 12/13/24 documented as of this encounter
--- OUTSIDE RECORDS SUMMARY | 2025-05-05 18:06 | XMS_ITS | Encounter Summary ---
Author Organization [employer] Address [address] [facility] 7t [place] [address] Care Team Providers Care Sand Mixer Machine Name Role Phone Annia [facility] Primary Care Provider [phone] Elena Nichols PharmD Unavailable [phone] Reason for Visit * Reason Comments Med Refill Encounter Details Date Type Department Care Team ([facility] Contact Info) Description 08/31/2024 Refill [facility] MEDICINE 230 [place], [place] [phone] [place] [facility] 230 [place] [address] Primary hypertension Social History Tobacco Use Types [...] Info) Description 05/12/2025 2:00 PM EST Telemedicine [facility] MEDICINE [address] [place] [address] Elena Nichols PharmD [address] [place] [address] 06/12/2025 1:45 PM EST Office Visit [facility] MEDICINE [address] [place] [address] Tg Milner FNP 230 [place] [address] documented as of this encounter Visit Diagnoses Diagnosis Primary hypertension Unspecified essential hypertension documented in this encounter Additional Health Concerns Assessment Noted Time PHQ-9 Depression Total Score: 0 07/22/19 25 10:03 AM EST documented as of this encounter Care Teams Sand Mixer Machine Relationship Specialty Start Date End Date Tg Milner FNP [address] [place] [address] PCP - General Family Medicine 04/28/22 Elena Nichols PharmD [address] [place] [address] Pharmacist Pharmacy 12/13/24 documented as of this encounter
--- OUTSIDE RECORDS SUMMARY | 2025-05-05 18:07 | XMS_ITS | Encounter Summary ---
Author Organization [employer] [facility] Address [address] [place] [address] [place] [address] Care Team Providers Care Card Player Name Role Phone Annia [facility] Primary Care Provider [phone] Elena Nichols PharmD Unavailable [phone] Reason for Visit * Reason Comments Med Refill Encounter Details Date Type Department Care Team ([facility] Contact Info) Description 12/22/2022 Refill [facility] [address] [place] [address] [address] [place] [address] [address] Primary hypertension Social History Tobacco Use Types [...] Upcoming Encounters Date Type Department Care Team ([facility] Contact Info) Description 05/12/2025 2:00 PM EST Telemedicine [facility] [address] [place] [address] Elena Nichols, Navarro [address] [place] [address] 06/12/2025 1:45 PM EST Office Visit [facility] [place] [address] Tg Milner [facility] [place] [address] documented as of this encounter Visit Diagnoses Diagnosis Primary hypertension Unspecified essential hypertension documented in this encounter Additional Health Concerns Assessment Noted Time PHQ-9 Depression Total Score: 0 11/25/19 23 3:32 PM EDT documented as of this encounter Care Teams Card Player Relationship Specialty Start Date End Date Tg Milner [facility] [place] [place] [address] PCP - General Family Medicine 04/28/22 Elena Nichols, Navarro [facility] [place] [address] Pharmacist Pharmacy 12/13/24 documented as of this encounter
--- OUTSIDE RECORDS SUMMARY | 2025-05-05 18:07 | XMS_ITS | Encounter Summary ---
Author Organization [employer] Address [address] [facility] 7t [place] [address] Care Team Providers Care Boiler Setter Name Role Phone Tg Milner [facility] Primary Care Provider [phone] Elena Nichols PharmD Unavailable [phone] Encounter Details Date Type Department Care Team ([facility] st Contact Info) Description 01/16/2025 Telephone [facility] MEDICINE 230 [place], [place] [phone] [place] [facility] 230 [place] [address] Social History Tobacco Use Types Packs/Day Years [...] today's appointment. Requesting a call back at [phone] documented in this encounter Plan of Treatment Upcoming Encounters Date Type Department Care Team (Late st Contact Info) Description 05/12/2025 2:00 PM EST Telemedicine [facility] MEDICINE [address] [place] [phone] Elena Nichols, PharmD 230 [place] [address] 06/12/2025 1:45 PM EST Office Visit [facility] MEDICINE [address] [place] [address] Tg Milner FNP [address] [place] [address] documented as of this encounter Visit Diagnoses Not on filedocumented in this encounter Additional Health Concerns Assessment Noted Time PHQ-9 Depression Total Score: 0 01/12/20 25 2:08 PM EDT documented as of this encounter Care Teams Boiler Setter Relationship Specialty Start Date End Date Tg Milner FNP 230 [place] [address] PCP - General Family Medicine 04/28/22 Elena Nichols, Navarro [address] [place] [address] Pharmacist Pharmacy 12/13/24 documented as of this encounter
--- OUTSIDE RECORDS SUMMARY | 2025-05-05 18:07 | XMS_ITS | Encounter Summary ---
Author Organization [employer] Address [address] [facility] 7 [place] [address] Care Team Providers Care Manager Supply Chain Planning Name Role Phone Annia [facility] Primary Care Provider Elena Nichols PharmD Unavailable [phone] Reason for Visit * Reason Comments Med Refill Encounter Details Date Type Department Care Team ([facility] st Contact Info) Description 07/01/2023 Refill [facility] MEDICINE 230 [place] [address] [place] [facility] 230 [place] [address] Primary osteoarthritis of right knee Social History [...] Info) Description 05/12/2025 2:00 PM EST Telemedicine [facility] MEDICINE [address] [place] [phone] Elena Nichols PharmD [address] [place] [address] 06/12/2025 1:45 PM EST Office Visit [facility] MEDICINE [address] [place] [address] Tg Milner FNP 230 [place] [address] documented as of this encounter Visit Diagnoses Diagnosis Primary osteoarthritis of right knee documented in this encounter Additional Health Concerns Assessment Noted Time PHQ-9 Depression Total Score: 0 11/25/19 23 3:32 PM EDT documented as of this encounter Care Teams Manager Supply Chain Planning Relationship Specialty Start Date End Date Tg Milner FNP [address] [place] [address] PCP - General Family Medicine 04/28/22 Elena Nichols PharmD [address] [place] [address] Pharmacist Pharmacy 12/13/24 documented as of this encounter
--- OUTSIDE RECORDS SUMMARY | 2025-05-05 18:07 | XMS_ITS | Encounter Summary ---
Author Organization [employer] Address [address] [facility] 7t [place] [address] Care Team Providers Care Show Host/Hostess Name Role Phone Annia [facility] Primary Care Provider [phone] Elena Nichols PharmD Unavailable [phone] Reason for Visit * Reason Onset Date Comments Med Refill 05/01/2025 Encounter Details Date Type Department Care Team (Late st Contact Info) Description 05/01/2025 Refill [facility] [address] [place], [place] [phone] [employer] [address] [place] [address] Primary osteoarthritis of right knee Social History [...] Escobedo LPN - 05/01/2025 2:58 PM EST [employer] HR DEVELOPER checked on 05/01/25. Last seen 02/27/25. documented in this encounter Plan of Treatment Upcoming Encounters Date Type Department Care Team (Late st Contact Info) Description 05/12/2025 2:00 PM EST Telemedicine [facility] MEDICINE [address] [place] [phone] Elena Nichols PharmD [address] [place] [address] 06/12/2025 1:45 PM EST Office Visit [facility] MEDICINE [address] [place] [address] Tg Milner FNP [address] [place] [address] documented as of this encounter Goals Goal [...] Plan Weekly blood pressure task No Simone Elena, PharmD Patient has chronic [...] Weekly blood pressure task No Nita Escobedofer, SHAREPOINT ARCHITECT Weekly blood pressure task Care Plan Weekly blood pressure task No Gayatri Escobedonifer, SHAREPOINT ARCHITECT Weekly blood pressure task Care Plan Weekly blood pressure task No FannyGayatriDora, SHAREPOINT ARCHITECT Patient has chronic kidney disease Care Plan Patient has chronic kidney disease No Gayatri Escobedonifer, SHAREPOINT ARCHITECT Patient has chronic kidney disease Care Plan Patient has chronic kidney disease No Nita Escobedofer SHAREPOINT ARCHITECT Patient has chronic kidney disease Care Plan Patient has chronic kidney disease No Gayatri Escobedonifer SHAREPOINT ARCHITECT Patient has diabetic neuropathy Care Plan Patient has diabetic neuropathy No Gayatri Escobedonifer SHAREPOINT ARCHITECT Patient has diabetic neuropathy Care Plan Patient has diabetic neuropathy No FannyGayatir moctezumanifer, SHAREPOINT ARCHITECT Patient has diabetic neuropathy Care Plan Patient has diabetic neuropathy No Dora Escobedo SHAREPOINT ARCHITECT documented as of this encounter Visit Diagnoses [...] documented as of this encounter Care Teams Show Host/Hostess Relationship Specialty Start Date End Date Tg Milner FNP 230 [place] [address] PCP - General Family Medicine 04/28/22 Elena Nichols, GaleD [address] [place] [address] Pharmacist Pharmacy 12/13/24 documented as of this encounter
--- OUTSIDE RECORDS SUMMARY | 2025-05-05 18:07 | XMS_ITS | Encounter Summary ---
Author Organization [employer] [facility] Address [address] [place] [address] [place], [place] [address] Care Team Providers Care Structural Worker Name Role Phone AnniaTg KRISTY Primary Care Provider [phone] Elena Nichols PharmD Unavailable [phone] Encounter Details Date Type Department Care Team (Late st Contact Info) Description 07/10/2022 Orders Only [facility] MEDICINE [address] [place] [address] Chante Mackey LPN Social History Tobacco Use [...] Info) Description 05/12/2025 2:00 PM EST Telemedicine [facility]ICINE [address] [place] [address] Elena Nichols, PharmD 230 [place] [address] 06/12/2025 1:45 PM EST Office Visit [facility] MEDICINE [address] [place] [address] Tg Milner FNP [address] [place] [address] documented as of this encounter Visit Diagnoses Not on filedocumented in this encounter Care Teams Structural Worker Relationship Specialty Start Date End Date Tg Milner, PHOTOENGRAVING ETCHER 230 [place] [address] PCP - General Family Medicine 04/28/22 Elena Nichols, Navarro 230 [place] [address] Pharmacist Pharmacy 12/13/24 documented as of this encounter
--- OUTSIDE RECORDS SUMMARY | 2025-05-05 18:07 | XMS_ITS | Encounter Summary ---
Author Organization [employer] Address [address] [facility] [address] 7[address] [place] [address] Care Team Providers Care Bushel Worker Name Role Phone Tg Milner [employer] Primary Care Provider [phone] Elena Nichols PharmD Unavailable [phone] Encounter Details Date Type Department Care Team ([facility] st Contact Info) Description 04/17/2023 Abstract [facility] MEDICINE 230 [place] [address] [place]is H[place]away Social History Tobacco Use Types [...] Info) Description 05/12/2025 2:00 PM EST Telemedicine [facility] MEDICINE [address] [place] [address] Elena Nichols PharmD [address] [place] [address] 06/12/2025 1:45 PM EST Office Visit [facility] MEDICINE [address] [place] [address] Tg Milner FNP [address] [place] [address] documented as of this encounter Visit Diagnoses Not on filedocumented in this encounter Additional Health Concerns Assessment Noted Time PHQ-9 Depression Total Score: 0 11/25/19 3:32 PM EDT documented as of this encounter Care Teams Bushel Worker Relationship Specialty Start Date End Date Tg Milner FNP [address] [place] [address] PCP - General Family Medicine 04/28/22 Elena Nichols PharmD [address] [place] [address] Pharmacist Pharmacy 12/13/24 documented as of this encounter
--- OUTSIDE RECORDS SUMMARY | 2025-05-05 18:07 | XMS_ITS | Encounter Summary ---
Author Organization [employer] [facility] Address [address] [place] [address] Care Team Providers Care Hvac Field Service Technician Name Role Phone Annia [facility] Primary Care Provider [phone] Elena Nichols PharmD Unavailable [phone] Reason for Visit * Reason Comments Med Refill Encounter Details Date Type Department Care Team (Late st Contact Info) Description 12/25/2022 Refill [facility] MEDICINE 230 [place], [place] [phone] Annia Tg [facility] 230 [place] [address] Type 2 diabetes mellitus without complication, without long-term current use of insulin ([facility] [place]) Social History Tobacco Use Types Packs/Day Years [...] Info) Description 05/12/2025 2:00 PM EST Telemedicine [facility] MEDICINE [address] [place], [place] [phone] Elena Nichols, PharmD 230 [place] [address] 06/12/2025 1:45 PM EST Office Visit [facility] 230 [place] [address] Tg Milner FNP [address] [place] [address] documented as of this encounter Visit Diagnoses Diagnosis Type 2 diabetes mellitus without complication, without long-term current use of insulin (HCC) documented in this encounter Additional Health Concerns Assessment Noted Time PHQ-9 Depression Total Score: 0 11/25/19 23 3:32 PM EDT documented as of this encounter Care Teams Hvac Field Service Technician Relationship Specialty Start Date End Date Tg Milner FNP [address] [place] [address] PCP - General Family Medicine 04/28/22 Elena Nichols PharmD [address] [place] [address] Pharmacist Pharmacy 12/13/24 documented as of this encounter
--- OUTSIDE RECORDS SUMMARY | 2025-05-05 18:07 | XMS_ITS | Clinical Summary ---
Author Organization [employer] Address [address] [place] [address] [address] [place] [address] Care Team Providers Care Supervisor Kosher Dietary Service Name Role Phone Tg Milner MANUFACTURING MAINTENANCE MANAGER Primary Care Provider [phone] Elena Nichols PharmD Unavailable [phone] Allergies No known active allergies Medications latanoprost [...] 1:36 PM EST Active TRUEplus Lancets 33G [facility] Use to test blood sugar up to [...] EST Active Diclofenac Sodium 1 % gelIndications:Ac [place] midline low back pain without sciatica Apply [...] Active Continuous Glucose Sensor (Dexcom G7 Sensor) [facility] APPLY 1 Sensor AND CHANGE EVERY 10 [...] disease, with long-term current use of insulin ([facility]) Inject 16 units subcutaneous daily 15 mL 11 Active gabapentin (Neurontin) 800 MG tabletIndications :Primary osteoarthritis of right knee TAKE 1 TABLET BY MOUTH EVERY 8 HOURS 90 tablet 05/02/20 25 1:55 PM EST Active Aspirin Low Dose 81 [...] disease, with long-term current use of insulin ([facility]) Take 2 tablets by mouth with breakfast. [...] disease, with long-term current use of insulin ([facility]) Inject 5 mg under the skin 1 (one) time per week. 2 mL 11 025 2024 Discontinued(D ose adjustment) insulin glargine (Lantus SoloStar) 100 UNIT/ML penIndications:Ty pe 2 diabetes mellitus with stage 3b chronic kidney disease, with long-term current use of insulin ([facility]) Inject 16 units subcutaneous daily 15 mL 11 025 2024 Discontinued(R eorder (will not trigger notification to Pharmacy)) insulin glargine (Lantus SoloStar) 100 UNIT/ML penIndications:Ty pe 2 diabetes mellitus with stage 3b chronic kidney disease, with long-term current use of insulin ([facility]) Inject 20 units subcutaneous daily 15 mL 11 04/18/20 25 1:36 PM EST 025 2024 Discontinued(R eorder (will not trigger notification to Pharmacy)) Active Problems Problem Noted Date Diagnosed Date Vertigo 02/27/2025 Assessment & Plan (02/27/2025 5:37 PM EDT): Orders: Referral to Physical Therapy; Future Chronic ulcer of great toe of left foot ([facility] ) 02/27/2025 Assessment & Plan (02/27/2025 5:37 [...] venous insufficiency 06/14/2018 Overview (11/26/2022): Followed by [facility] vascular Compression stockings Pain managed with gabapeentin 800mg t.i.d Followed by [facility] wound care for [...] Exam: 07/2023--RISK 1 Eye Exam: Through [facility]. UTD Statin: Yes ASA: Yes GISELA/ARB: [...] Encounters Date Type Department Care Team Description 05/05/2025 Telephone [facility] [address] [facility] [place] [address] Tg Milner FNP No Show 05/02/2025 Orders Only [facility] External Provider, [facility] 05/01/[address] [facility] [address] [place] [address] Tg Milner FNP Primary osteoarthritis of right knee 04/26/2025 Telephone [facility] [address] [place] [address] Elena Nichols PharmD 04/26/2025 Travel 04/21/2025 Telephone [facility] [address] [place] [address] Elena Nichols PharmD 04/21/2025 Travel 04/11/2025 Orders Only GENERIC EXTERNAL DATA DEPARTMENT Provider, Generic External Data 04/10/2025 Refill [facility] [address] [place] [address] Elena Nichols, PharmParmjit Type 2 diabetes mellitus with stage 3b chronic kidney disease, with long-term current use of insulin (HCC) 04/10/[address] [facility] [address] [place] [address] Tg Milner FNP Transition Of Care (Tcm) (HDF scheduled ) 04/09/2025 Refill [facility] [address] [place] [address] Tg Milner FNP Primary hypertension; Obstructive sleep apnea 04/04/2025 Telephone [facility] [address] [place] [address] Tg Milner FNP VNA services 04/02/2025 Orders Only GENERIC EXTERNAL DATA DEPARTMENT Provider, Generic External Data 03/27/2025 Telephone [facility] [address] [place] [address] Elena Nichols, PharmParmjit 03/24/2025 Telephone [facility] [address] [place] [address] Elena Nichols PharmD 03/24/2025 Travel 03/21/2025 3:00 PM EDT Telemedicine [facility] [address] [place] [address] Elena Nichols PharmD Diabetic polyneuropathy associated with type 2 diabetes mellitus (HCC) (Primary Dx); Type 2 diabetes mellitus with stage 3b chronic kidney disease, with long-term current use of insulin (HCC); Mixed hyperlipidemia 03/15/2025 Refill [facility] [address] [place] [address] Tg Milner FNP Constipation, unspecified constipation type 03/01/2025 Orders Only [facility] External Provider, [facility] 02/27/2025 4:00 PM EDT Office Visit [facility] [address] [place] [address] Ingrid Lynn NP Vertigo (Primary Dx); Chronic ulcer of great toe of left foot, unspecified ulcer stage (CMS/HCC) 02/27/2025 Telephone [facility] [address] [place] [address] Tg Milner FNP Nurse Triage 02/27/2025 Travel 02/24/[address] [address] Tg Milner FNP Provider out 03/0102/22/2025 Orders Only [facility] [address] [place] [address] Tg Milner FNP Dyspepsia (Primary Dx) 02/20/2025 Travel 02/16/2025 4:00 PM EDT Office Visit [facility] [address] [place] [address] Melisa Jacob MD Acute midline low back pain without sciatica (Primary Dx) 02/16/2025 Orders Only [facility] [address] [place] [address] Melisa Jacob MD 02/16/2025 Refill [facility] [address] [place] [address] Tg Milner FNP Gastroesophageal reflux disease, unspecified whether esophagitis present 02/16/2025 Travel 02/08/2025 Refill [facility] [address] [place] [address] Tg Milner FNP Mixed hyperlipidemia 02/06/2025 Refill [facility] [address] [place] [address] AnniaTg dalal [facility] Type 2 diabetes mellitus with other circulatory complication, without long-term current use of insulin ([facility]) from Last 3 Months Immunizations Immunization Administration [...] Info) Description 05/12/2025 2:00 PM EST Telemedicine [facility] [address] [place] [address] Elena Nichols, PharmD [address] [place] [address] 06/12/2025 1:45 PM EST Office Visit [facility] [address] [place] [address] [place], Tg, MANUFACTURING MAINTENANCE MANAGER [address] [place] [address] Health Maintenance Due Date Last Done Comments [...] Additional history exists COVID-19 Vaccine ( - season) 2025 Influenza Vaccine (#1) 2025 Eye [...] Plan Patient has chronic kidney disease No Simone, Elena, PharmD Patient has diabetic neuropathy Care Plan Patient has diabetic neuropathy No Simone, Elena, PharmD Patient has diabetic neuropathy Care [...] disease No Jd Jaraa, PharmD Patient has diabetic neuropathy Care Plan Patient has diabetic neuropathy No Jd Jaraa, PharmD Patient has diabetic neuropathy Care Plan Patient has diabetic neuropathy No Jd Jaraa, PharmD Patient has diabetic neuropathy Care Plan Patient has diabetic neuropathy No Jd Jaraa, PharmD Weekly blood pressure task Care Plan Weekly blood pressure task No Dora Escobedo [employer] PREPARER APPRENTICE Weekly blood pressure task Care Plan Weekly blood pressure task No Dora Escobedo STONE AND PLATE PREPARER APPRENTICE Weekly blood pressure task Care Plan Weekly blood pressure task No Nita Escobedofer STONE AND PLATE PREPARER APPRENTICE Patient has chronic kidney disease Care Plan Patient has chronic kidney disease No Gayatri Escobedonifer, STONE AND PLATE PREPARER APPRENTICE Patient has chronic kidney disease Care Plan Patient has chronic kidney disease No FannyGayatri moctezumanifer STONE AND PLATE PREPARER APPRENTICE Patient has chronic kidney disease Care Plan Patient has chronic kidney disease No Nita Escobedofer STONE AND PLATE PREPARER APPRENTICE Patient has diabetic neuropathy Care Plan Patient has diabetic neuropathy No Nita Escobedofer STONE AND PLATE PREPARER APPRENTICE Patient has diabetic neuropathy Care Plan Patient has diabetic neuropathy No Nita Escobedofer, STONE AND PLATE PREPARER APPRENTICE Patient has diabetic neuropathy Care Plan Patient has diabetic neuropathy No Dora Escobedo STONE AND PLATE PREPARER APPRENTICE Weekly blood pressure task Care Plan Weekly blood pressure task No Annia, Tg, MANUFACTURING MAINTENANCE MANAGER Weekly blood pressure task Care Plan Weekly blood pressure task No [place], Tg, MANUFACTURING MAINTENANCE MANAGER Weekly blood pressure task Care Plan Weekly blood pressure task No Annia, Tg, MANUFACTURING MAINTENANCE MANAGER Patient has chronic kidney disease Care Plan Patient has chronic kidney disease No Annia, Tg, MANUFACTURING MAINTENANCE MANAGER Patient has chronic kidney disease Care Plan Patient has chronic kidney disease No [place], Tg, MANUFACTURING MAINTENANCE MANAGER Patient has chronic kidney disease Care Plan Patient has chronic kidney disease No Annia, Tg, MANUFACTURING MAINTENANCE MANAGER Patient has diabetic neuropathy Care Plan Patient has diabetic neuropathy No [place], Tg, MANUFACTURING MAINTENANCE MANAGER Patient has diabetic neuropathy Care Plan Patient has diabetic neuropathy No [place], Tg, MANUFACTURING MAINTENANCE MANAGER Patient has diabetic neuropathy Care Plan Patient has diabetic neuropathy No Annia, Tg, MANUFACTURING MAINTENANCE MANAGER Weekly blood pressure task Care Plan Weekly blood pressure task No Jean, Dorie Weekly blood pressure task Care Plan Weekly blood pressure task No Jean, Dorie Weekly blood pressure task Care Plan Weekly blood pressure task No Jean, Dorie Patient has chronic kidney disease Care Plan Patient has chronic kidney disease No Jean, Dorie Patient has chronic kidney disease Care Plan Patient has chronic kidney disease No Jean, Dorie Patient has chronic kidney disease Care Plan Patient has chronic kidney disease No Jean, Dorie Patient has diabetic neuropathy Care Plan Patient has diabetic neuropathy No Jean, Dorie Patient has diabetic neuropathy Care Plan Patient has diabetic neuropathy No Jean, Dorie Patient has diabetic neuropathy Care Plan Patient has diabetic neuropathy No Jean, Dorie Procedures Procedure Name Priority Date/Time Associated Diagnosis Comments STRESS TEST WITH MYOCARDIAL PERFUSION Routine 05/02/2025 10:20 AM EST URINALYSIS, COMPLETE, WITH REFLEX TO [...] Recently Relevant to Health Maintenance Results * Stress test with myocardial perfusion (05/02/2025 10:20 AM EST) 05/02/2025 10:2 0 AM EST Narrative [facility] - 05/04/2025 5:09 PM EST [address] [address] Nuclear Medicine Report Signed Patient: Brandt Nelson MR#: [id number] : 1960 Acct:[id number] Age/Sex: 64 / M ADM Date: 05/02/25 Loc: .CARD Attending Dr: Daren Ellis MD Ordering Physician: Daren Ellis MD Date of Service: 05/02/25 Procedure(s): NM cardiolite stress test Accession Number(s): [id number] cc: [facility]; Daren Ellis MD Reason for Exam: Z01.810 - Encounter for preprocedural cardiovascular examination*LEXISCAN Lexiscan Myocardial perfusion study Indication: Preoperative cardiovascular evaluation Technique: The patient was brought in for a Lexiscan perfusion study on 05/02/2025 and was injected 0.4 mg of Lexiscan intravenously. Within a minute of this injection 30 mCi of sestamibi was given intravenously. Images were obtained using the SPECT gamma camera interlaced with the gating device. Images were obtained in supine position. Resting perfusion study was performed on 05/04/2025. Patient was administered 30 mCi of sestamibi intravenously at rest. Images were then obtained in supine position. Total DLP 84 mGy-cm. Images were processed with the software and compared side to side in short axis, horizontal long axis and vertical long axis views. Findings: Raw aquisition reviewed. The stress perfusion study showed decreased tracer uptake at the apex and adjacent areas in the inferior wall. Some improvement with CT attenuation correction and hence could have components of diaphragmatic attenuation artifact. The gated study shows normal LV systolic function with calculated LVEF of 72%. LV cavity is normal in size. The gated study shows normal wall thickening and contraction of segments. Resting study shows decreased tracer uptake at the apex. No significant change with CT attenuation correction. Gating at rest reveals normal wall motion with ejection fraction at 70%. The findings are consistent with fixed perfusion defect at the apex with some reversibility along the inferior portion but normal contractility. NM/NM cardiolite stress test Impression: 1. Myocardial perfusion imaging study shows probably normal myocardial perfusion. 2. Gated LVEF is 72% during stress and 70% during rest. 3. Transient ischemic dilatation not present. EKG component of the test reported separately. Electronically signed by: Daren Ellis MD 05/04/2025 05:06 PM EST Dictated By: Daren Ellis MD Signed By: <Electronically signed by Daren Ellis MD in OV> 05/04/25 1706 DD/ 1020 TD/TT: 05/04/25 1450 Email Marketing Executive: Procedure Note Donotuseinterpreter, Image - 05/04/[address] [address] Nuclear Medicine Report Signed Patient: Brandt Nelson#: [id number] : 9Acct:[id number] Age/Sex: 64 / MADM Date: 05/02/25 Loc: [facility] Attending Dr: Daren Ellis MD Ordering Physician: Daren Ellis MD Date of Service: 05/02/25 Procedure(s): NM cardiolite stress test Accession Number(s): [id number] cc: [facility]; Daren Ellis MD Reason for Exam: Z01.810 - Encounter for preprocedural cardiovascularexamination*LEXISCAN Lexiscan Myocardial perfusion study Indication: Preoperative cardiovascular evaluation Technique: The patient was brought in for a Lexiscan perfusion study on 05/02/2025 and was injected 0.4 mg of Lexiscan intravenously. Within a minute of this injection 30 mCi of sestamibi was given intravenously. Images were obtained using the SPECT gamma camera interlaced with the gating device. Images were obtained in supine position. Resting perfusion study was performed on 05/04/2025. Patient was administered 30 mCi of sestamibi intravenously at rest. Images were then obtained in supine position. Total DLP 84 mGy-cm. Images were processed with the software and compared side to side in short axis, horizontal long axis and vertical long axis views. Findings: Raw aquisition reviewed. The stress perfusion study showed decreased tracer uptake at the apex and adjacent areas in the inferior wall. Some improvement with CT attenuation correction and hence could have components of diaphragmatic attenuation artifact. The gated study shows normal LV systolic function with calculated LVEF of 72%. LV cavity is normal in size. The gated study shows normal wall thickening and contraction of segments. Resting study shows decreased tracer uptake at the apex. No significant change with CT attenuation correction. Gating at rest reveals normal wall motion with ejection fraction at 70%. The findings are consistent with fixed perfusion defect at the apex with some reversibility along the inferior portion but normal contractility. NM/NM cardiolite stress test Impression: 1. Myocardial perfusion imaging study shows probably normal myocardial perfusion. 2. Gated LVEF is 72% during stress and 70% during rest. 3. Transient ischemic dilatation not present. EKG component of the test reported separately. Electronically signed by: Daren Ellis MD 05/04/2025 05:06 PM EST RP Workstation: [id number] Dictated By: Daren Ellis MD Signed By: <Electronically signed by Daren Ellis MD inOV> 05/04/25 1706 DD/ 1020 TD/TT: 05/04/25 1450 Email Marketing Executive: [facility] External Provider CV STRE SS PROCEDURES Edited Result - Final [facility] [address] [place] [address] * (ABNORMAL) Urinalysis, Complete, with Reflex to Culture (04/11/2025 11:43 AM EST) Only the most recent of3 resultswithin the time period is included. Color Urine Yellow [facility] Appearance Urine Turbid [facility] PH 6.0 5.0 - 9.0 [facility] Glucose Urine UA >=1000(A) Negative mg/dL [facility] Urine Blood Large (3+)(A) Negative [facility] Specific [place] - Urine 1.020 1.005 - 1.025 [facility] Urine Protein 100 (2+)(A) Neg-Trace mg/dL [facility] Urine Ketones Negative Negative mg/dL [facility] Nitrite Urine Negative Negative [facility] Leukocyte Esterase Urine Large (3+)(A) Negative [facility] RBC Urine 0-2 0 - 2 /HPF [facility] Urine WBC >50(A) 0 - 5 /HPF [facility] Urine Squamous Epithelial Cell 0-2 0 - 2 /HPF [facility] Urine Bacteria None Seen None Seen [facility] Hyaline Casts, Urine 0-2 0 - 2 /LPF [facility] Urine Yeast Present [facility] 04/11/2025 11:4 3 AM EST 04/11/2025 11:50 AM EST Narrative [facility] - 04/11/2025 12:13 PM EST 1143Urine, Ob Port us Generic External Data Provider LAB URINE ORDERAB LES Final Result Performing Organization Address [facility]/ZIP Co de Phone Number [facility] [address] [place] [phone] * Culture, Urine, Routine (04/11/2025 12:00 AM EST) Only the most recent of3 resultswithin the time period is included. Urine Urine specimen from urinary conduit / Unknown 04/11/2025 04/11/2025 Comment:Urine Cath Narrative [facility] - 04/14/2025 9:20 AM EST Viviana albicans Quant > 100,000 cfu/mL Specimen Source: Urine Catheterized us Generic External Data Provider LAB MICROBIOLOGY - GENERAL ORDERABLES Final Result Performing Organization Address City/[facility] Co de Phone Number [facility] [address] [place] [phone] * CT Abdomen Pelvis w/o Contrast (04/02/2025 8:05 PM EST) Anatomical Region Laterality Modality Body, Pelvis, Abdomen Computed T omography 04/02/2025 8:05 PM EST Narrative 04/02/2025 8:07 PM EST [address] [address] [address] Scan Report Signed Patient: Brandt Nelson MR#: [id number] : 1960 Acct:[id number] Age/Sex: 64 / M ADM Date: 04/02/25 Loc: HO.ED Attending Dr: Ordering Physician: Elbert Graf MD Date of Service: 04/02/25 Procedure(s): CT abdomen pelvis wo IV con Accession Number(s): [id number] cc: Elbert Graf MD; [facility] Report Number: [id number]: Total DLP = 0.00 mGy-cm Reason for [...] in OV> 04/02/252005 DD/ 04 TD/TT: 04/02/252004 Email Marketing Executive: Procedure Note Donotuseinterpreter, Image - 04/02/[address] [address] [address] Scan Report Signed Patient: Yolande Nelson#: [id number] : 9Acct:[id number] Age/Sex: 64 / MADM Date: 04/02/25 Loc: HO.ED Attending Dr: Ordering Physician: Elbert Graf MD Date of Service: 04/02/25 Procedure(s): CT abdomen pelvis wo IV con Accession Number(s): [id number] cc: Elbert Graf MD; Tg Milner [facility] Report Number: [id number]: Total DLP = 0.00 mGy-cm Reason for [...] in OV> 04/02/252005 DD/ 04 TD/TT: 04/02/252004 Email Marketing Executive: us [facility] External Provider IMG CT PROCEDURES Edited Result - Final * (ABNORMAL) CBC auto differential (04/02/2025 4:49 PM EST) White Blood Count 8.1 4.8 - 10.8 X10*3/uL [facility] Red Blood Count 4.89 4.60 - 5.80 X10*6/uL [facility] Hemoglobin 13.8(L) 14.0 - 18.0 g/dl [facility] Hematocrit 40.7(L) 42.0 - 52.0 % [facility] Mean Corpuscular Volume 83.2 80.0 - 98.0 fL [facility] Mean Corpuscular Hemoglobin 28.2 27.0 - 33.0 pg [facility] Mean Corpuscular HGB Conc 33.9 31.0 - 36.0 g/dl [facility] Red Cell Distribution Width 12.9 11.0 - 16.0 % [facility] Platelet Count 252 160 - 400 X10*3/uL [facility] Mean Platelet Volume 9.4 9.4 - 12.4 fL [facility] Neutrophils Percent Auto 66.5 45 - 73 % [facility] Imm Gran Pct Auto 0.5(H) 0.0 - 0.4 % [facility] Lymphocytes Percent Auto 19.6(L) 20 - 40 % [facility] Monocytes Percent Auto 10.5 2 - 11 % [facility] Eosinophils Percent Auto 2.5 0 - 4 % [facility] Basophils Percent Auto 0.4 0 - 2 % [facility] NRBC Pct Auto 0.0 0.0 - 0.2 /100WBC [facility] Neutrophils Absolute Auto 5.4 2.0 - 8.3 x10*3/uL [facility] Imm Gran Abs Auto 0.04(H) 0.00 - 0.03 X10*3/uL [facility] Lymphocytes Absolute Auto 1.6 1.2 - 4.9 X10*3/uL [facility] Monocytes Absolute Auto 0.9 0.1 - 1.2 X10*3/uL [facility] Eosinophils Absolute Auto 0.2 0.0 - 0.4 X10*3/uL [facility] Basophils Absolute Auto 0.0 0.0 - 0.2 X10*3/uL [facility] NRBC Abs Auto 0.000 0.0 - 0.012 X10*3/uL [facility] 04/02/2025 4:49 PM EST 04/02/2025 4:52 PM EST us Generic External Data Provider LAB BLOOD ORDERAB LES Final Result Performing Organization Address City/[facility]/ZIP Co de Phone Number [facility] [address] [place] [address] [phone] * (ABNORMAL) Basic Metabolic Panel (04/02/2025 4:49 PM EST) Sodium 136 135 - 145 mmol/L [facility] Potassium 5.5(H) 3.3 - 5.1 mmol/L [facility] Chloride 103 96 - 108 mmol/L [facility] Carbon Dioxide 23 22 - 29 mmol/L [facility] Anion Gap 16 12 - 20 [facility] Urea Nitrogen (BUN) 36(H) 9 - 16 mg/dL [facility] Creatinine, Serum 1.77(H) 0.5 - 1.4 mg/dL [facility] Creatinine Clr Calc Pharmacy 46.5 [facility] Comment:eGFR (calculated fro m the MDRD study equation) and eCrCl(calculated from the Cockcroft-Gault equation) are based ondifferent parameters and may not yield comparable results.If eCrCl result is absurd, please check patient'sheight/weight. Estimated Glomerular Filt Rate 39 [facility] Comment:Chronic Kidney Disea se: Estimated GFR < 60 mL/min/1.14d9Adodty Kidney Disease: Estimated GFR < 15 mL/min/1.73m2 Glucose 171(H) 60 - 115 mg/dL [facility] Calcium 9.6 8.4 - 10.2 mg/dL [facility] 04/02/2025 4:49 PM EST 04/02/2025 4:52 PM EST us Generic External Data Provider LAB BLOOD ORDERAB LES Final Result Performing Organization Address City/[facility]/ZIP Co de Phone Number [facility] [address] [place] [address] [phone] * Referral to Wound Clinic (03/23/2025) us Ingrid Lynn PUMP SERVICER OUTPATIENT REFERRAL ORDERABLES F inal Result * XR Foot 3+ Views Left (03/01/2025 4:08 PM EDT) Anatomical Region Laterality Modality Lower Extremities, Foot Left Radiogra phic Imaging 03/01/2025 4:08 PM EDT Narrative 03/02/2025 8:25 AM EDT [facility] [address] [place] [address] XRay Report Signed Patient: Brandt Nelson MR#: [id number] : 1960 Acct:[id number] Age/Sex: 64 / M ADM Date: 03/01/25 Loc: .[facility] Attending Dr: Moira Issa MD Ordering Physician: Moira Issa MD Date of Service: 03/01/25 Procedure(s): XR foot LT min 3V Accession Number(s): [id number] cc: Moira Issa MD; [facility] Reason for Exam: NON HEALING WOUND EXAMINATION: [...] 03/02/25 0822 DD/ 1608 TD/TT: 03/01/25 1610 Email Marketing Executive: Procedure Note Donotuseinterpreter, Image - 03/02/2025 [facility] [address] [place] [phone] XRay Report Signed Patient: Yolande Nelson#: [id number] : 9Acct:[id number] Age/Sex: 64 / MADM Date: 03/01/25 Loc: HO.[facility] Attending Dr: Moira Issa MD Ordering Physician: Moira Issa MD Date of Service: 03/01/25 Procedure(s): XR foot LT min 3V Accession Number(s): [id number] cc: Moira Issa MD; [facility] Reason for Exam: NON HEALING WOUND EXAMINATION: [...] 03/02/25 0822 DD/ 1608 TD/TT: 03/01/25 1610 Email Marketing Executive: [facility] External Provider IMG XR PROCEDURES Edited Result - Final * XR Lumbar Spine 2-3 Views (02/16/2025 4:14 PM EDT) Anatomical Region Laterality Modality Spine, L-spine Radiographic Cheryl ging 02/16/2025 4:14 PM EDT Narrative 02/16/2025 4:45 PM EDT [facility] [address] [place] [address] XRay Report Signed Patient: Brandt Nelson MR#: [id number] : 1960 Acct:[id number] Age/Sex: 64 / M ADM Date: 02/16/25 Loc: HO.[facility] Attending Dr: Melisa Jacob MD Ordering Physician: Melisa Jacob MD Date of Service: 02/16/25 Procedure(s): XR lumbar spine 2-3V Accession Number(s): [id number] cc: Melisa Jacob MD Reason for Exam: [...] 02/16/25 1642 DD/ 1614 TD/TT: 02/16/25 1615 Email Marketing Executive: Procedure Note Donotuseinterpreter, Image - 02/16/2025 [facility] [address] [place] [address] XRay Report Signed Patient: Brandt Nelson#: [id number] : 9Acct:[id number] Age/Sex: 64 / MADM Date: 02/16/25 Loc: HO.[facility] Attending Dr: Melisa Jacob MD Ordering Physician: Melisa Jacob MD Date of Service: 02/16/25 Procedure(s): XR lumbar spine 2-3V Accession Number(s): [id number] cc: Melisa Jacob MD Reason for Exam: [...] 02/16/25 1642 DD/ 1614 TD/TT: 02/16/25 1615 Email Marketing Executive: us Melisa Jacob MD IMG XR PROCEDURES Final Re sult * (ABNORMAL) POCT HGB A1C (01/11/2025 2:07 PM EDT) Hemoglobin A1C 10.4(A) 4.0 - 5.7 % QC Media Lot # [id number] Lot# Expiration Date ,982 Blood 01/11/2025 2:07 PM EDT [facility] POINT OF CARE TEST ENTER/EDIT ORDERABLES Final Result * (ABNORMAL) Lipid Panel, Standard (01/22/2024 10:21 AM EDT) Triglycerides 291(H) <150 mg/dL [facility] Comment:Desirable Triglyceri de: less than 150 mg/dLBorderline High Triglyceride 150-199 mg/dLHigh Triglyceride: 200-499 mg/dLVery High Triglyceride: greater than or equal to 5OO mg/dL Cholesterol 166 <200 mg/dL [facility] Comment:Desirable Cholestero l: less than 200 mg/dLBorderline High Cholesterol: 200-239 mg/dLHigh Cholesterol: greater than 239 mg/dL LDL Cholesterol Calculated 77 <100 mg/dL [facility] Comment:Desirable LDL: less than 100 mg/dLNear Optimal/Above Optimal LDL: 110- 129 mg/dLBorderline High LDL: 130-159 mg/dLHigh LDL: 160-189 mg/dLVery High LDL: greater than or equal to 190 mg/dL HDL Cholesterol 31(L) >40 mg/dL [facility] Comment:Desirable HDL: great er than 40 mg/dL Note: This HDL assay may give artificially low results in patients with liver disease. Blood Venous blood specimen / Unknown 01/22/2024 10:21 AM EDT 01/22/2024 11:05 AM EDT [facility] LAB BLOOD ORDERABLES Final Re sult [facility] [address] [place] [phone] * Hepatitis C Antibody with Reflex to HCV, RNA, Quantitative, Real-Time PCR (09/01/2022 2:59 PM EDT) Hepatitis C Antibody NON-REACT DARY NON-REACT DARY GetJobt Index 0.09 <1.00 [facility] Comment: HCV antibody was non-reactive. There is no laboratory evidence of HCV infection. In most cases, no further action is required. However, if recent HCV exposure is suspected, a test for HCV RNA (test code 21737) is suggested. For additional information please refer to http://education.AQH/faq/SLC46g0 (This link is being provided for informational/ educational purposes only.) Blood Venous blood specimen / Unknown 09/01/2022 2:59 PM EDT 09/01/2022 2:59 PM EDT [facility] MANUFACTURING MAINTENANCE MANAGER LAB BLOOD ORDERABLES Final Re sult [facility] [address], [place] [address] [facility] [address] [place] [address] from Last 3 Months or Most Recently [...] diabetic neuropathy 05/01/2025 Weekly blood pressure task 05/05/2025 Weekly blood pressure task 05/05/2025 Weekly blood pressure task 05/05/2025 Patient has chronic kidney disease 05/05/2025 Patient has chronic kidney disease 05/05/2025 Patient has chronic kidney disease 05/05/2025 Patient has diabetic neuropathy 05/05/2025 Patient has diabetic neuropathy 05/05/2025 Patient has diabetic neuropathy 05/05/2025 Weekly blood pressure task 05/05/2025 Weekly blood pressure task 05/05/2025 Weekly blood pressure task 05/05/2025 Patient has chronic kidney disease 05/05/2025 Patient has chronic kidney disease 05/05/2025 Patient has chronic kidney disease 05/05/2025 Patient has diabetic neuropathy 05/05/2025 Patient has diabetic neuropathy 05/05/2025 Patient has diabetic neuropathy 05/05/2025 Insurance [employer] (HMO D-SNP) [facility] Care Teams Supervisor Kosher Dietary Service Relationship Specialty Start Date End Date Tg Milner FNP [address] [place], [place] PCP - General Family Medicine 04/28/22 Elena Nichols PharmD [address] [place], [place] Pharmacist Pharmacy 12/13/24
--- OUTSIDE RECORDS SUMMARY | 2025-05-05 18:07 | XMS_ITS | Encounter Summary ---
Author Organization [employer] Address [address] [facility] [address] [place] [address] Care Team Providers Care Large Animal Husbandry Technician Name Role Phone Annia [facility] Primary Care Provider [phone] Elena Nichols PharmD Unavailable Reason for Visit * Reason Onset Date Comments No Show 05/05/2025 Encounter Details Date Type Department Care Team ([facility] Contact Info) Description 05/05/2025 Telephone [facility] [address] [place], [place] [phone] [facility] [address] [place] [address] No Show Social History Tobacco Use Types Packs/Day Years [...] Telephone Encounter - Heidi Silva RN - 05/05/2025 3:41 PM EST TC placed to pt., pt. Declines to r/s as he states Dr. Jarrell is taking care of him and will have a surgery with him soon for urological care which is the reason why he was hospitalized. Pt. Had appointment with him today. Pt. Does agree to r/s routine appointment with PCP for DM for 06/12/25 at 1:45pm. * Telephone Encounter - Dorie Jean - 05/05/2025 1:45 PM EST Pt no showed to appointment on 05/05/25 hospital fu. documented in this encounter Plan of Treatment Upcoming Encounters Date Type Department Care Team (Late st Contact Info) Description 05/12/2025 2:00 PM EST Telemedicine [facility] [address] [place] [address] Elena Nichols, PharmD [address] [place] [address] 06/12/2025 1:45 PM EST Office Visit [facility] [address] [place] [address] Ball GroundTg, CATERING SERVICE MANAGER [address] [place] [address] documented as of this encounter Goals Goal [...] Care Plan Weekly blood pressure task No Elena Nichols, PharmD Weekly blood pressure [...] Plan Patient has chronic kidney disease No Nichols Elena, PharmD Patient has diabetic neuropathy Care Plan Patient has diabetic neuropathy No Nichols, Elena, PharmD Patient has diabetic neuropathy Care Plan Patient has diabetic neuropathy No Nichols Elena, PharmD Patient has diabetic neuropathy Care Plan Patient has diabetic neuropathy No Elena Nichols, PharmD Weekly blood pressure task Care Plan Weekly blood pressure task No Elena Nichols, PharmD Weekly blood pressure task Care Plan Weekly blood pressure task No Eelna Nichols, PharmD Weekly blood pressure task Care [...] Weekly blood pressure task No Nita Escobedofer, BILL PEDDLER Weekly blood pressure task Care Plan Weekly blood pressure task No Gayatri Escobedonifer, BILL PEDDLER Weekly blood pressure task Care Plan Weekly blood pressure task No Nita Escobedofer BILL PEDDLER Patient has chronic kidney disease Care Plan Patient has chronic kidney disease No Dora Escobedo BILL PEDDLER Patient has chronic kidney disease Care Plan Patient has chronic kidney disease No Dora Escobedo BILL PEDDLER Patient has chronic kidney disease Care Plan Patient has chronic kidney disease No Dora Escobedo BILL PEDDLER Patient has diabetic neuropathy Care Plan Patient has diabetic neuropathy No Dora Escobedo BILL PEDDLER Patient has diabetic neuropathy Care Plan Patient has diabetic neuropathy No Dora Escobedo LPN Patient has diabetic neuropathy Care Plan Patient has diabetic neuropathy No Dora Escobedo LPN Weekly blood pressure task Care Plan Weekly blood pressure task No [place], Tg, CATERING SERVICE MANAGER Weekly blood pressure task Care Plan Weekly blood pressure task No [place], Tg, CATERING SERVICE MANAGER Weekly blood pressure task Care Plan Weekly blood pressure task No [place], [place], [facility] Patient has chronic kidney disease Care Plan Patient has chronic kidney disease No [place], Tg, [facility] Patient has chronic kidney disease Care Plan Patient has chronic kidney disease No [place], Tg, [facility] Patient has chronic kidney disease Care Plan Patient has chronic kidney disease No [place], Tg, [facility] Patient has diabetic neuropathy Care Plan Patient has diabetic neuropathy No [place], [place], [facility] Patient has diabetic neuropathy Care Plan Patient has diabetic neuropathy No [place], [place], [facility] Patient has diabetic neuropathy Care Plan Patient has diabetic neuropathy No [place], Tg, CATERING SERVICE MANAGER Weekly blood pressure task Care Plan Weekly blood pressure task No Dorie Jean Weekly blood pressure task Care Plan Weekly [...] Care Plan Patient has diabetic neuropathy No Dorie Jean documented as of this encounter Visit Diagnoses Not on filedocumented in this encounter Additional Health Concerns Active [...] neuropathy 05/05/2025 Patient has diabetic neuropathy 05/05/2025 Assessment Noted Time PHQ-9 Depression Total Score: 0 01/12/20 2:08 PM EDT documented as of this encounter Care Teams Large Animal Husbandry Technician Relationship Specialty Start Date End Date Tg Milner FNP [address] [place] [address] PCP - General Family Medicine 04/28/22 Elena Nichols PharmD [address] [place] [address] Pharmacist Pharmacy 12/13/24 documented as of this encounter
--- OUTSIDE RECORDS SUMMARY | 2025-05-05 18:07 | XMS_ITS | Encounter Summary ---
Author Organization [employer] Address [address] [place] [address] 7 [place] [address] Care Team Providers Care Ropeman Name Role Phone Tg Milner FRUIT DRYER Primary Care Provider [phone] Elena Nichols PharmD Unavailable [phone] Reason for Referral * Consultation (Routine) - Authorized Specialty Diagnoses / Procedures Referred By Contac t Referred To Contact Pharmacy Diagnoses Type 2 diabetes mellitus with other circulatory complication, with long-term current use of insulin (HCC) Jennifer Quinn MD [address] [place] [address] Phone: tel: fax: Referral ID Status Reason Start Date Expiration Date Visits Requested Visits Authorized [id number] Authorized Consult and Treat 2024 2025 6 6 Encounter Details Date Type Department Care Team ([facility] st Contact Info) Description 2024 Orders Only [facility] [address] [place] [address] [phone] Jennifer Quinn MD [address] [place] [address] [phone] Type 2 diabetes mellitus with other circulatory [...] Info) Description 05/12/2025 2:00 PM EST Telemedicine [facility] [address] [place] [phone] Elena Nichols, PharmD [address] [place] [address] 06/12/2025 1:45 PM EST Office Visit [facility] [address] [place] [phone] [place], FRUIT DRYER [address] [place] [address] Scheduled Referrals Name Type Priority Associated Diagnoses Orde r Schedule Referral to Pharmacy CDTM Outpatient Referral Routine Type 2 diabetes mellitus with other circulatory complication, with long-term current use of insulin ([facility]) Ordered: 2024 documented as of this encounter Visit Diagnoses Diagnosis Type 2 diabetes mellitus with other circulatory complication, with long-term current use of insulin ([facility])- Primary documented in this encounter Additional Health Concerns Assessment Noted Time PHQ-9 Depression Total Score: 8 10/20/19 25 11:47 AM EDT documented as of this encounter Care Teams Ropeman Relationship Specialty Start Date End Date [place] FNP [address] [place] [address] PCP - General Family Medicine 04/28/22 Elena Nichols PharmD [address] [place] [address] Pharmacist Pharmacy 12/13/24 documented as of this encounter
--- OUTSIDE RECORDS SUMMARY | 2025-05-05 18:07 | XMS_ITS | Clinical Summary ---
Author Organization [address] [place] [address] Address [address] [place] [address] Phone Care Team Providers Care Denture Processor Name Role Phone [facility] Primary Care Provider [phone] Allergies No known active allergies Medications acetaminophen [...] mmol/L LAB CHEMISTRY METHOD 09/12/2024 8:05 PM [facility] Potassium 4.3 3.5 - 5.5 mmol/L LAB CHEMISTRY METHOD 09/12/2024 8:05 PM [facility] Chloride 100 96 - 110 mmol/L LAB CHEMISTRY METHOD 09/12/2024 8:05 PM [facility] CO2 25 21 - 32 mmol/L LAB CHEMISTRY METHOD 09/12/2024 8:05 PM [facility] Anion Gap 7 3 - 11 LAB CHEMISTRY METHOD 09/12/2024 8:05 PM [facility] Glucose 216(H) 70 - 100 mg/dL LAB CHEMISTRY METHOD 09/12/2024 8:05 PM [facility] BUN 31(H) 5 - 25 mg/dL LAB CHEMISTRY METHOD 09/12/2024 8:05 PM [facility] Creatinine 1.87(H) 0.70 - 1.30 mg/dL LAB CHEMISTRY METHOD 09/12/2024 8:05 PM EDT [facility] eGFR 39(L) >=60 mL/min/1. 73m2 LAB CHEMISTRY METHOD 09/12/2024 8:05 PM EDT [facility] Comment:Calculation based on the Chronic Kidney Disease Epidemiology Collaboration (CKD-EPI) equation refit without adjustment for race. BUN/Creatinine Ratio 16.6 LAB CHEMISTRY METHOD 09/12/2024 8:05 PM EDT [facility] Calcium 9.7 8.5 - 10.5 mg/dL LAB CHEMISTRY METHOD 09/12/2024 8:05 PM EDT [facility] Blood Venous blood specimen / Unknown Venipuncture / Unknown 09/12/2024 7:05 PM EDT 09/12/2024 7:34 PM EDT us Paloma Perry MD LAB BLOOD ORDERABLES Fin al Result [facility] [address] [place] [address], from Last 3 Months or Most Recently Relevant to Health Maintenance Insurance [facility] [employer] Member Subscriber Plan / Payer (Ef fective 2024-Present) Name:Brandt Nelson Relation to Subscriber:Self Name:Brandt Nelson Payer ID:[id number] Group ID:Not on file Type:Not on file Address: [address] [place] [address] Care Teams Denture Processor Relationship Specialty Start Date End Date Annia Tg [address] [facility] 1 [place] [address] PCP - General 01/05/24
--- OUTSIDE RECORDS SUMMARY | 2025-05-05 18:07 | XMS_ITS | Encounter Summary ---
Author Organization [employer] Address [address] [facility] 7t [place] [address] Care Team Providers Care Superintendent Institution Name Role Phone Tg Milner SHEEPSKIN PICKLER Primary Care Provider [phone] Elena Nichols PharmD Unavailable [phone] Reason for Visit * Reason Comments Med Refill Encounter Details Date Type Department Care Team ([facility] st Contact Info) Description 10/04/2024 Refill [facility] [address] [place] [address] Melisa Jacob MD [address] [place] [address] Pain in right lumbar region of back; [...] Info) Description 05/12/2025 2:00 PM EST Telemedicine [facility] [address] [place] [phone] Elena Nichols PharmD [address] [place] [phone] 06/12/2025 1:45 PM EST Office Visit [facility] [address] [place] [address] Tg Milner [address] [address] documented as of this encounter Visit Diagnoses Diagnosis Pain in right lumbar region of back Right flank pain Abdominal pain, unspecified site documented in this encounter Additional Health Concerns Assessment Noted Time PHQ-9 Depression Total Score: 0 07/22/19 25 10:03 AM EST documented as of this encounter Care Teams Superintendent Institution Relationship Specialty Start Date End Date Tg Milner FNP [address] [place] [phone] PCP - General Family Medicine 04/28/22 Elena Nichols PharmD [address] [place] [address], [place] [address] Pharmacist Pharmacy 12/13/24 documented as of this encounter
--- OUTSIDE RECORDS SUMMARY | 2025-05-05 18:07 | XMS_ITS | Encounter Summary ---
Author Organization [employer] Address [address] [facility] 7 [place] [address] Care Team Providers Care Solar Project Engineer Name Role Phone [facility] Primary Care Provider [phone] Elena Nichols PharmD Unavailable [phone] Reason for Visit * Reason Comments Med Refill Encounter Details Date Type Department Care Team ([facility] Contact Info) Description 02/16/2025 Refill [facility] [address] [place], [place] [phone] [facility] [address] [place] [address] Gastroesophageal reflux disease, unspecified whether esophagitis present [...] Info) Description 05/12/2025 2:00 PM EST Telemedicine [facility] [address] [place] [phone] Elena Nichols PharmD [address] [place] [phone] 06/12/2025 1:45 PM EST Office Visit [facility] [address] [place] [address] Tg Milner FNP [address] [place] [phone] documented as of this encounter Visit Diagnoses Diagnosis Gastroesophageal reflux disease, unspecified whether esophagitis present documented in this encounter Additional Health Concerns Assessment Noted Time PHQ-9 Depression Total Score: 0 01/12/20 25 2:08 PM EDT documented as of this encounter Care Teams Solar Project Engineer Relationship Specialty Start Date End Date Tg Milner FNP [address] [place] [address] PCP - General Family Medicine 04/28/22 Elena Nichols PharmD [address] [place] [address] Pharmacist Pharmacy 12/13/24 documented as of this encounter
--- OUTSIDE RECORDS SUMMARY | 2025-05-05 18:07 | XMS_ITS | Encounter Summary ---
Author Organization [employer] Address [address] [place] [address] Care Team Providers Care Hospice Clinical Manager Name Role Phone [place] [facility] Primary Care Provider [phone] Elena Nichols PharmD Unavailable [phone] Reason for Visit * Reason Comments Med Refill Encounter Details Date Type Department Care Team (Late Contact Info) Description 06/18/2022 Refill [facility] [address] [place] [phone] [place] Tg PLASTIC OUTFITTER [address] [place] [address] Type 2 diabetes mellitus without complication, without long-term current use of insulin ([facility]) Social History Tobacco Use Types Packs/Day [...] Department Care Team (Late Contact Info) Description 05/12/2025 2:00 PM EST Telemedicine [facility] [address] [place] [phone] Elena Nichols PharmD [address] [place] [address] 06/12/2025 1:45 PM EST Office Visit [facility] [address] [place] [address] Tg Milner, [facility] [address] [place] [address] documented as of this encounter Visit Diagnoses Diagnosis Type 2 diabetes mellitus without complication, without long-term current use of insulin (HCC) documented in this encounter Care Teams Hospice Clinical Manager Relationship Specialty Start Date End Date Tg Milner [facility] [address] [place] [address] PCP - General Family Medicine 04/28/22 Elena Nichols, GaleD [address] [place] [phone] Pharmacist Pharmacy 12/13/24 documented as of this encounter
--- OUTSIDE RECORDS SUMMARY | 2025-05-05 18:07 | XMS_ITS | Encounter Summary ---
Author Organization [employer] Address [address] [place] [address] 7 [place] [address] Care Team Providers Care Video Game Repair Technician Name Role Phone Annia [facility] Primary Care Provider [phone] Elena Nichols PharmD Unavailable [phone] Reason for Visit * Reason Onset Date Comments Medication Question 05/06/2022 new script 05/06/2022 Encounter Details Date Type Department Care Team ([facility] st Contact Info) Description 05/06/2022 Telephone [facility] [address] [place] [address] [place] [facility] [address] [place] [address] Medication Question; new script Social History Tobacco [...] Trulicity .75, 1.5 or 3mg. PCP ESTELLA Gillham * Telephone Encounter - Nany Gann - 05/06/2022 2:08 PM EST Tc from pt requesting active medications. Pt will be traveling to [place] as of May 19nd unsure on the exact date that will be returning. Stated will be returning after the new years but has yet to establish a date. PCP LINEN KEEPER [place]ham documented in this encounter Plan of Treatment Upcoming Encounters Date Type Department Care Team (Late st Contact Info) Description 05/12/2025 2:00 PM EST Telemedicine [facility] [address] [place] [phone] Elena Nichols PharmD [address] [place] [address] 06/12/2025 1:45 PM EST Office Visit [facility] [address] [place] [address] Tg Milner [address] [address] documented as of this encounter Visit Diagnoses Diagnosis Type 2 diabetes mellitus without complication, without long-term current use of insulin (HCC) documented in this encounter Care Teams Video Game Repair Technician Relationship Specialty Start Date End Date Tg Milner FNP [address] [place] [address] PCP - General Family Medicine 04/28/22 Elena Nichols, Navarro [address] [place] [phone] Pharmacist Pharmacy 12/13/24 documented as of this encounter
--- OUTSIDE RECORDS SUMMARY | 2025-05-05 18:07 | XMS_ITS | Encounter Summary ---
Author Organization [employer] Address [address] [facility] [address] [place] [address] Care Team Providers Care Senior Controls Technician Name Role Phone Tg Milner LEGAL RESEARCHER Primary Care Provider [phone] Elena Nichols PharmD Unavailable [phone] Encounter Details Date Type Department Care Team ([facility] st Contact Info) Description 05/02/2025 Orders Only [facility] External Provider, [facility] Social History Tobacco Use Types Packs/Day Years [...] Info) Description 05/12/2025 2:00 PM EST Telemedicine [facility] MED[facility] [address] [place] [id number] Elena Nichols PharmD [address] [place] [phone] 06/12/2025 1:45 PM EST Office Visit [facility] [address] [place] [id number] [facility] [address] [place] [address] documented as of this encounter Goals Goal Patient Goal Type Associated Problems Recent Progress Patient-Stated? Author Help patients manage their type 2 diabetes Care Plan Help patients manage their type 2 diabetes No Elena Nichols PharmD Weekly blood pressure task Care Plan Weekly blood pressure task No Elena Nichols PharmParmjit Help patients manage their type 2 diabetes Care Plan Help patients manage their type 2 diabetes No Elena Nichols PharmParmjit Patient has chronic kidney disease Care Plan Patient has chronic kidney disease No Elena Nichols PharmD Help patients manage their type 2 diabetes Care Plan Help patients manage their type 2 diabetes No Elena Nichols PharmParmjit Patient has diabetic neuropathy Care Plan Patient has diabetic neuropathy No Elena Nichols PharmParmjit Weekly blood pressure task Care Plan Weekly blood pressure task No Elena Nichols PharmParmjit Weekly blood pressure task Care Plan Weekly blood pressure task No Elena Nichols PharmParmjit Patient has chronic kidney disease Care Plan Patient has chronic kidney disease No Elena Nichols PharmParmjit Patient has chronic kidney disease Care Plan Patient has chronic kidney disease No Elena Nichols, PharmD Patient has diabetic neuropathy Care Plan Patient has diabetic neuropathy No Elena Nichols, PharmParmjit Patient has diabetic neuropathy Care Plan Patient has diabetic neuropathy No Elena Nichols PharmParmjit Weekly blood pressure task Care Plan Weekly blood pressure task No Elena Nichols PharmD Weekly blood pressure task Care Plan Weekly blood pressure task No Elena Nichols, PharmParmjit Weekly blood pressure task Care Plan Weekly blood pressure task No Elena Nichols PharmParmjit Patient has chronic kidney disease Care Plan Patient has chronic kidney disease No Elena Nichols, PharmD Patient has chronic kidney disease Care Plan Patient has chronic kidney disease No Elena Nichols, PharmParmjit Patient has chronic kidney disease Care Plan Patient has chronic kidney disease No Elena Nichols, PharmParmjit Patient has diabetic neuropathy Care Plan Patient has diabetic neuropathy No Elena Nichols, PharmParmjit Patient has diabetic neuropathy Care Plan Patient has diabetic neuropathy No Elena Nichols, PharmParmjit Patient has diabetic neuropathy Care Plan Patient has diabetic neuropathy No Elena Nichols PharmParmjit Weekly blood pressure task Care Plan Weekly blood pressure task No Elena Nichols, PharmD Weekly blood pressure task Care Plan Weekly blood pressure task No Elena Nichols, PharmD Weekly blood pressure task Care Plan Weekly blood pressure task No Elena Nichols, PharmD Patient has chronic kidney disease Care Plan Patient has chronic kidney disease No Elena Nichols, PharmD Patient has chronic kidney disease Care Plan Patient has chronic kidney disease No Elena Nichols, PharmD Patient has chronic kidney disease Care Plan Patient has chronic kidney disease No Elena Nichols, PharmParmjit Patient has diabetic neuropathy Care Plan Patient has diabetic neuropathy No Elena Nichols, PharmD Patient has diabetic neuropathy Care Plan Patient has diabetic neuropathy No Elena Nichols, PharmD Patient has diabetic neuropathy Care Plan Patient has diabetic neuropathy No Elena Nichols, PharmD Weekly blood pressure task Care Plan Weekly blood pressure task No Lucia Jara PharmD Weekly blood pressure task Care Plan Weekly blood pressure task No Lucia Jara PharmParmjit Weekly blood pressure task Care Plan Weekly blood pressure task No Lucia Jara, PharmParmjit Patient has chronic kidney disease Care Plan Patient has chronic kidney disease No Lucia Jara PharmParmjit Patient has chronic kidney disease Care Plan Patient has chronic kidney disease No Marek, Lucia, PharmD Patient has chronic kidney disease Care Plan Patient has chronic kidney disease No Marek, Lucia, PharmD Patient has diabetic neuropathy Care Plan Patient has diabetic neuropathy No Marek, Lucia, PharmD Patient has diabetic neuropathy Care Plan Patient has diabetic neuropathy No Marek, Lucia, PharmD Patient has diabetic neuropathy Care Plan Patient has diabetic neuropathy No Marek, Lucia, PharmD Weekly blood pressure task Care Plan Weekly blood pressure task No Fanny, Dora, RESTAURANT ASSISTANT Weekly blood pressure task Care Plan Weekly blood pressure task No Fanny, Dora, RESTAURANT ASSISTANT Weekly blood pressure task Care Plan Weekly blood pressure task No Fanny, Droa, RESTAURANT ASSISTANT Patient has chronic kidney disease Care Plan Patient has chronic kidney disease No Fanny, Dora, RESTAURANT ASSISTANT Patient has chronic kidney disease Care Plan Patient has chronic kidney disease No Fanny, Dora, RESTAURANT ASSISTANT Patient has chronic kidney disease Care Plan Patient has chronic kidney disease No Fanny, Dora, RESTAURANT ASSISTANT Patient has diabetic neuropathy Care Plan Patient has diabetic neuropathy No Fanny, Dora, RESTAURANT ASSISTANT Patient has diabetic neuropathy Care Plan Patient has diabetic neuropathy No Fanny, Dora, RESTAURANT ASSISTANT Patient has diabetic neuropathy Care Plan Patient has diabetic neuropathy No Fanny, Dora, RESTAURANT ASSISTANT documented as of this encounter Procedures Procedure Name Priority Date/Time Associated Diagnosis Comments STRESS TEST WITH MYOCARDIAL PERFUSION Routine 05/02/2025 10:20 AM EST documented in this encounter Results * Stress test with myocardial perfusion (05/02/2025 10:20 AM EST) 05/02/2025 10:2 0 AM EST Narrative [facility] - 05/04/2025 5:09 PM EST [address] [address] Nuclear Medicine Report Signed Patient: Brandt Nelson MR#: [id number] : 1960 Acct:[id number] Age/Sex: 64 / M ADM Date: 05/02/25 Loc: HO.CARD Attending Dr: Daren Ellis MD Ordering Physician: Daren Ellis MD Date of Service: 05/02/25 Procedure(s): NM cardiolite stress test Accession Number(s): [id number] cc: [facility]; Daren Ellis MD Reason for Exam: [...] by: Daren Ellis MD 05/04/2025 05:06 PM [facility] Dictated By: Daren Ellis MD Signed By: <Electronically signed by Daren Ellis MD in OV> 05/04/25 1706 DD/ 1020 TD/TT: 05/04/25 1450 Paring Machine Operator: Procedure Note Donotuseinterpreter, Image - 05/04/[address] [address] Nuclear Medicine Report Signed Patient: Brandt Nelson#: [id number] : 9Acct:[id number] Age/Sex: 64 / MADM Date: 05/02/25 Loc: [facility] Attending Dr: Daren Ellis MD Ordering Physician: Daren Ellis MD Date of Service: 05/02/25 Procedure(s): NM cardiolite stress test Accession Number(s): [id number] cc: [facility]; Daren Ellis MD Reason for Exam: [...] Ellis MD 05/04/2025 05:06 PM EST RP Dictated By: Daren Ellis MD Signed By: <Electronically signed by Daren Ellis MD inOV> 05/04/25 1706 DD/ 1020 TD/TT: 05/04/25 1450 Paring Machine Operator: [facility] External Provider CV STRE SS PROCEDURES Edited Result - Final Performing Organization Address City/State/[facility] Co de Phone Number [facility] [address] [place] [phone] documented in this encounter Visit Diagnoses Not [...] as of this encounter Care Teams Senior Controls Technician Relationship Specialty Start Date End Date [place] FNP [address] [place] [address] PCP - General Family Medicine 04/28/22 Elena Nichols PharmD [address] [place] [address] Pharmacist Pharmacy 12/13/24 documented as of this encounter
--- OUTSIDE RECORDS SUMMARY | 2025-05-05 18:07 | XMS_ITS | Encounter Summary ---
Author Organization [facility] Address [address] [place] [address] [address] [address] Care Team Providers Care Carry Out Clerk Name Role Phone Tg Milner [facility] Primary Care Provider [phone] Elena Nichols PharmD Unavailable Encounter Details Date Type Department Care Team (Late Contact Info) Description 06/03/[address] [address] Social History Tobacco Use Types Packs/Day Years [...] Info) Description 05/12/2025 2:00 PM EST Telemedicine [address] [phone] Elena Nichols, PharmD [address] [place] [address] 06/12/2025 1:45 PM EST Office Visit [address] [place] [address] [address] documented as of this encounter Visit Diagnoses Not on filedocumented in this encounter Care Teams Carry Out Clerk Relationship Specialty Start Date End Date [place] KRISTY Mas [address] [place] [address] PCP - General Family Medicine 04/28/22 Elena Nichols PharmD [address] [place] [address] Pharmacist Pharmacy 12/13/24 documented as of this encounter
== END 2025-05-05 14:33 | disposition home or self-care (01) ==
LOC: HO.HUSH 13:52
PROVIDERS: Visit Provider Urology
DX: R33.9 Retention of urine, unspecified (principal)
CPT/HCPCS: 51705; 99213; G2211

== ENCOUNTER → 2025-05-05 13:52 | Outpatient (BNVA) | payer OTHER, SELFPAY | PROVIDERS: Visit Provider Urology | DX: Z46.6 Encounter for fitting and adjustment of urinary device (principal); R33.9 Retention of urine, unspecified | CPT/HCPCS: 51705; 99212 ==